=== PATIENT | male | born 1965 | race Caucasian/White ===

== ENCOUNTER 2023-03-25 19:11 | Inpatient (IN) ==
[2023-03-25] MEDS ORDERED: MoRPHine SULFATE 4 MG/ML 1 ML CARP\\VIAL IV STA (19:30)
[2023-03-25] MEDS ORDERED: METOCLOPRAMIDE HCL INJ 5 MG/ML 2 ML VIAL IV STA (19:30)
--- NOTE | 2023-03-25 19:38 | Emergency Department Note ---
Impression & Plan Nausea & vomiting, Metabolic acidosis, Leukocytosis ED Provider Note NAME: JOSEPHINE RIOS AGE: 57 SEX: M : 1965 ARRIVES VIA: Ambulance INFORMANT: Patient ED PROVIDER(S): Giorgio Bauer DO CHIEF COMPLAINT: abdominal pain HPI: Patient is a 57-year-old male who presents to the ER for abdominal discomfort. Notes symptoms have been present for the past 48 hours. He has some constipation for the past 4 days and has not had a bowel movement. Admits to nausea, vomiting, and diarrhea. No dysuria, urgency, or frequency. No other exacerbating or remitting factors. Denies any headache or change in vision. No chest pain or shortness of breath. No other exacerbating or remitting factors. PAST MEDICAL HISTORY:See Below PAST SURGICAL HISTORY:See Below FAMILY HISTORY:See Below SOCIAL HISTORY:See Below HOME MEDICATIONS:See Below ALLERGIES:See Below VITALS:See Below PHYSICAL EXAMINATION: GENERAL: Sitting up in bed, alert, mild distress holding his abdomen EYE EXAM: normal conjunctiva. OROPHARYNX: mucous membranes are moist LUNGS: Clear to auscultation. Normal chest wall mechanics HEART: no murmurs, S1 normal and S2 normal ABDOMEN: abdomen soft, non-tender, normo-active bowel sounds, no masses, no rebound or guarding. BACK: Back is symmetrical on inspection and there is no deformity, no midline tenderness, no CVA tenderness. SKIN: no rashes and no bruising UPPER EXTREMITIES: upper extremities are grossly normal. LOWER EXTREMITIES: No pitting edema. NEURO EXAM: Normal sensorium, cranial nerves II-XII grossly intact, normal speech, no gross weakness of arms, no gross weakness of legs. MEDICAL DECISION MAKING: Patient is a 57-year-old male who presents the ER for the above-stated complaint. IV was established blood work is obtained. Upon presentation he was found to be hypertensive with systolics in the 200s and heart rate in the 120s. Labs show leukocytosis 21,000. This increased from the previous visit at 16. No anemia. BMP with metabolic acidosis with a CO2 of 12 and a gap of 30. Glucose at 200. LFTs bilirubin was unremarkable. TSH was normal. UA was unremarkable. COVID-negative. With the euglycemic metabolic acidosis in light of Jardiance question if this is euglycemic DKA. Patient was given 3 L of IV fluids. He was given Phenergan. He did feel significantly better. He was discussed with hospitalist for further evaluation management and treatment. Triage Nursing notes reviewed. Limited review of prior medical records performed Vital Signs: reviewed and remarkable for HTN and tachy Differential diagnosis: Differential diagnoses includes but is not limited to gastritis, peptic ulcer disease, GERD, gallbladder disease, pancreatitis, small bowel obstruction, appendicitis, diverticulitis, hernia, urinary tract infection, torsion, perforation, trauma, infectious. ER treatment provided: See below Diagnostics interpreted by me include EKG and cardiac monitoring as listed below: -Cardiac Monitoring: An order was placed for continuous cardiac monitoring. The monitor shows a rate of 110 with sinus rhythm. -ECG: Sinus tachycardia rate of 101 Normal axis No PVCs QTc 482 -Laboratory studies:Interpreted by me as stated above in MDM and shown below. Imaging studies: Xrays: As interpreted by me:none CTs show: CT head was negative CT abdomen pelvis shows no acute pathology CT of the head per my read shows no large bleed Consultation(s): As described in MDM Procedures:none Critical Care: None Past Med/Surg History Medical History PTSD (post-traumatic stress disorder) Social History Smoking Status: Former smoker Feels Safe at Home: Yes Allergies Allergies Allergy/AdvReac Type Severity Reaction Status Date / Time No Known Allergies Allergy Unverified 03/25/23 22:44 Home Meds Home Medications Medication Instructions Recorded Confirmed Metamucil Gummies 2 - 3 tabs PO DAILY 03/25/23 03/25/23 Prebiotic Gummy 2 - 3 tabs PO DAILY 03/25/23 03/25/23 empagliflozin 25 mg tablet 25 mg PO DAILY 03/25/23 03/25/23 (Jardiance) ketoconazole 2 % topical cream 1 applic topical BID 03/25/23 03/25/23 losartan 25 mg tablet 25 mg PO QAM 03/25/23 03/25/23 metformin 500 mg tablet 1,000 mg PO BID 03/25/23 03/25/23 nicotine 21 mg/24 hr daily 1 patch topical DAILY 03/25/23 03/25/23 transdermal patch paroxetine HCl 30 mg tablet 30 mg PO QAM 03/25/23 03/25/23 Previous Rx's Medication Instructions Recorded ondansetron 4 mg disintegrating 4 mg PO Q6H PRN nausea and 03/24/23 tablet vomiting #12 tabs Results & Data (ED) Vital Signs Vital Signs - 24 hr 03/25/23 19:25 03/25/23 19:29 03/25/23 19:47 Temperature 37.2 C Temperature Source Oral Pulse Rate 128 H Pulse Rate [Bilateral Apical] 121 H Respiratory Rate 20 20 Respiratory Effort / Characteristics Non-Labored Non-Labored Respiratory Depth Normal Normal Blood Pressure 201/125 H Blood Pressure [Left Arm] Blood Pressure [Right Arm] 192/117 H Blood Pressure Mean 150 Blood Pressure Mean [Left Arm] Blood Pressure Mean [Right Arm] 142 Pulse Oximetry 98 98 100 Oxygen Delivery Method Room Air Room Air Room Air Sepsis Recent Fever Within 48 Hours No Sepsis New/Unexplained Change in Mental Status N/A Sepsis Action Taken by Nursing No Action Required 03/25/23 19:56 03/25/23 20:07 03/25/23 21:05 Temperature Temperature Source Pulse Rate 119 H Pulse Rate [Bilateral Apical] 113 H 117 H Respiratory Rate 20 20 Respiratory Effort / Characteristics Respiratory Depth Blood Pressure Blood Pressure [Left Arm] 180/116 H 178/103 H Blood Pressure [Right Arm] Blood Pressure Mean Blood Pressure Mean [Left Arm] 137 128 Blood Pressure Mean [Right Arm] Pulse Oximetry 99 99 Oxygen Delivery Method Room Air Room Air Sepsis Recent Fever Within 48 Hours Sepsis New/Unexplained Change in Mental Status Sepsis Action Taken by Nursing 03/25/23 22:07 03/25/23 22:51 03/25/23 22:56 Temperature Temperature Source Pulse Rate Pulse Rate [Bilateral Apical] 112 H 110 H 95 H Respiratory Rate 20 20 20 Respiratory Effort / Characteristics Non-Labored Respiratory Depth Normal Blood Pressure Blood Pressure [Left Arm] 157/83 H 141/79 H 149/90 H Blood Pressure [Right Arm] Blood Pressure Mean Blood Pressure Mean [Left Arm] 107 99 109 Blood Pressure Mean [Right Arm] Pulse Oximetry 98 98 98 Oxygen Delivery Method Room Air Room Air Sepsis Recent Fever Within 48 Hours Sepsis New/Unexplained Change in Mental Status Sepsis Action Taken by Nursing 03/25/23 23:00 03/25/23 23:15 03/25/23 23:30 Temperature Temperature Source Pulse Rate 97 H 94 H 96 H Pulse Rate [Bilateral Apical] Respiratory Rate 23 12 20 Respiratory Effort / Characteristics Respiratory Depth Blood Pressure 143/82 H 142/86 H 154/94 H Blood Pressure [Left Arm] Blood Pressure [Right Arm] Blood Pressure Mean 102 104 114 Blood Pressure Mean [Left Arm] Blood Pressure Mean [Right Arm] Pulse Oximetry 98 98 97 Oxygen Delivery Method Room Air Room Air Room Air Sepsis Recent Fever Within 48 Hours Sepsis New/Unexplained Change in Mental Status Sepsis Action Taken by Nursing Laboratory Data 03/25/23 19:26 03/25/23 19:26 Lab Results 03/25/23 03/25/23 03/25/23 Range/Units 19:26 19: 19:27 WBC 21.16 H (4.8-10.8) K/ul RBC 5.31 (4.70-6.10) M/uL Hgb 17.5 (14.0-18.0) g/dl Hct 48.2 (42.0-52.0) % MCV 90.8 (80.0-100.0) fL MCH 33.0 (25.0-34.0) pg MCHC 36.3 H (32.0-36.0) g/dL RDW Std Deviation 39.9 (36.4-46.3) fL RDW Coeff of Asad 12.0 (11.5-14.5) % Plt Count 355 (130-400) K/uL MPV 7.9 L (9.4-12.4) fL Immature Gran % (Auto) 3.3 % Neut % (Auto) 79.2 % Lymph % (Auto) 11.6 % Lucas % (Auto) 5.3 % Eos % (Auto) 0.0 % Baso % (Auto) 0.6 % Neut # (Auto) 16.75 H (1.40-6.50) K/uL Lymph # (Auto) 2.46 (1.2-3.4) K/uL Lucas # (Auto) 1.12 H (0.11-0.59) K/uL Eos # (Auto) 0.00 (0-0.50) K/uL Baso # (Auto) 0.13 (0-0.2) K/uL Immature Gran # (Auto) 0.70 H (0.01-0.20) K/uL Sodium 137 (136-145) mmol/L Potassium 3.8 (3.5-5.1) mmol/L Chloride 96 L (98-107) mmol/L Carbon Dioxide 12 L (21-32) mmol/L Anion Gap 29 H (3-11) BUN 30 H (6-23) mg/dl Creatinine 1.33 (0.6-1.4) mg/dl Est Cr Clr Drug Dosing 52.2 ml/min Est GFR ( Amer) 69.3 ml/min Est GFR (Non-Af Amer) 59.8 ml/min BUN/Creatinine Ratio 22.6 H (10-20) Glucose 200 H (70-99(Fasting)) mg/dl POC Glucose (70-99) mg/dl Calcium 10.4 H (8.6-10.3) mg/dl Phosphorus 4.3 (2.5-4.9) mg/dl Magnesium 2.3 (1.7-2.4) mg/dl Total Bilirubin 0.8 (0.2-1.0) mg/dl AST 24 (13-39) U/L ALT 21 (7-52) U/L Alkaline Phosphatase 81 (34-104) U/L Total Protein 8.9 H (6.0-8.3) gm/dl Albumin 5.2 H (3.4-5.0) gm/dl Globulin 3.7 (2.5-4.0) gm/dl Albumin/Globulin Ratio 1.4 (0.9-2) Lipase 8 L (11-82) U/L Procalcitonin (0-0.5) ng/ml Urine Color Yellow Urine Appearance Clear (Clear) Urine pH 5.0 (4.5-7.5) Ur Specific [place] 1.027 (1.000-1.030) Urine Protein 2+ H (Negative) Urine Glucose (UA) 3+ H (Negative) Urine Ketones 4+ H (Negative) Urine Blood Trace H (Negative) Urine Nitrite Negative (Negative) Urine Bilirubin Negative (Negative) Urine Urobilinogen Negative (Negative) Ur Leukocyte Esterase Negative (Negative) Urine WBC (Auto) 1-5 (0-5) /hpf Urine RBC (Auto) 0-4 (0-4) /hpf U Hyaline Cast (Auto) 0 (0-5) /lpf U Epithel Cells (Auto) 0-5 (0-5) /lpf Urine Bacteria (Auto) Negative (Negative) SARS-CoV-2, RNA, NAAT (NEGATIVE) 03/25/23 03/25/23 03/25/23 Range/Units 22:05 22:16 Unknown WBC (4.8-10.8) K/ul RBC (4.70-6.10) M/uL Hgb (14.0-18.0) g/dl Hct (42.0-52.0) % MCV (80.0-100.0) fL MCH (25.0-34.0) pg MCHC (32.0-36.0) g/dL RDW Std Deviation (36.4-46.3) fL RDW Coeff of Asad (11.5-14.5) % Plt Count (130-400) K/uL MPV (9.4-12.4) fL Immature Gran % (Auto) % Neut % (Auto) % Lymph % (Auto) % Lucas % (Auto) % Eos % (Auto) % Baso % (Auto) % Neut # (Auto) (1.40-6.50) K/uL Lymph # (Auto) (1.2-3.4) K/uL Lucas # (Auto) (0.11-0.59) K/uL Eos # (Auto) (0-0.50) K/uL Baso # (Auto) (0-0.2) K/uL Immature Gran # (Auto) (0.01-0.20) K/uL Sodium (136-145) mmol/L Potassium (3.5-5.1) mmol/L Chloride (98-107) mmol/L Carbon Dioxide (21-32) mmol/L Anion Gap (3-11) BUN (6-23) mg/dl Creatinine (0.6-1.4) mg/dl Est Cr Clr Drug Dosing ml/min Est GFR ( Amer) ml/min Est GFR (Non-Af Amer) ml/min BUN/Creatinine Ratio (10-20) Glucose (70-99(Fasting)) mg/dl POC Glucose 131 H (70-99) mg/dl Calcium (8.6-10.3) mg/dl Phosphorus (2.5-4.9) mg/dl Magnesium (1.7-2.4) mg/dl Total Bilirubin (0.2-1.0) mg/dl AST (13-39) U/L ALT (7-52) U/L Alkaline Phosphatase (34-104) U/L Total Protein (6.0-8.3) gm/dl Albumin (3.4-5.0) gm/dl Globulin (2.5-4.0) gm/dl Albumin/Globulin Ratio (0.9-2) Lipase (11-82) U/L Procalcitonin 0.20 (0-0.5) ng/ml Urine Color Urine Appearance (Clear) Urine pH (4.5-7.5) Ur Specific [place] (1.000-1.030) Urine Protein (Negative) Urine Glucose (UA) (Negative) Urine Ketones (Negative) Urine Blood (Negative) Urine Nitrite (Negative) Urine Bilirubin (Negative) Urine Urobilinogen (Negative) Ur Leukocyte Esterase (Negative) Urine WBC (Auto) (0-5) /hpf Urine RBC (Auto) (0-4) /hpf U Hyaline Cast (Auto) (0-5) /lpf U Epithel Cells (Auto) (0-5) /lpf Urine Bacteria (Auto) (Negative) SARS-CoV-2, RNA, NAAT NEGATIVE (NEGATIVE) Administered Medications Discontinued Medications Sodium Chloride (Nss 1000ml) 1,000 mls @ 999 mls/hr IV .Q1H1M MAGGIE Stop: 03/25/23 21:31 Last Infusion: 03/25/23 21:27 Dose: 0 mls/hr Documented By: Admin: 03/25/23 19:49 Dose: 999 mls/hr Documented By: Infusion: 03/25/23 19:49 Dose: 999 mls/hr Documented By: Admin: 03/25/23 19:45 Dose: 999 mls/hr Documented By: SILVER Sodium Chloride (Nss 1000ml) 1,000 mls @ 999 mls/hr IV .Q1H1M ONE Stop: 03/25/23 23:00 Last Infusion: 03/25/23 23:16 Dose: 0 mls/hr Documented By: Admin: 03/25/23 22:07 Dose: 999 mls/hr Documented By: SILVER Famotidine (Pepcid 20mg Iv Push) 20 mg in 5 mls @ 2.5 mls/min IV NOW STA Stop: 03/25/23 22:37 Last Admin: 03/25/23 22:49 Dose: 2.5 mls/min Documented By: SILVER Ioversol (Optiray 320 100ml) 89 ml IV ONCE ONE Stop: 03/25/23 20:34 Last Admin: 03/25/23 20:33 Dose: 89 ml Documented By: JELENA Metoclopramide HCl (Metoclopramide Hcl Inj 5 Mg/Ml 2 Ml Vial) 10 mg IV NOW STA Stop: 03/25/23 19:31 Last Admin: 03/25/23 19:45 Dose: 10 mg Documented By: SILVER Metoprolol Tartrate (Metoprolol Tartrate 1 Mg/Ml Vial) 2.5 mg IV NOW STA Stop: 03/25/23 22:38 Last Admin: 03/25/23 22:49 Dose: 2.5 mg Documented By: SILVER Morphine Sulfate (Morphine Sulfate 4 Mg/Ml 1 Ml Carp\Vial) 4 mg IV NOW STA Stop: 03/25/23 19:31 Last Admin: 03/25/23 19:46 Dose: 4 mg Documented By: SILVER Nicotine (Nicotine 21 Mg/24 Hr Tdsy) 21 mg TD ONE STA Stop: 03/25/23 22:52 Last Admin: 03/25/23 22:55 Dose: 21 mg Documented By: SILVER Imaging Data Radiologist's Impression: Abdomen/Pelvis CT 03/25/23 19:30 Exam(s): CT ABDOMEN + PELVIS With Contrast EXAM: CT Abdomen and Pelvis With Intravenous Contrast CLINICAL HISTORY: Reason for exam: abd pain N/V /D. TECHNIQUE: Axial computed tomography images of the abdomen and pelvis with intravenous contrast. CTDI is 10.94 mGy and DLP is 522.83 mGy-cm. Automated exposure control was utilized for the study. A dose lowering technique was utilized adhering to the principles of ALARA. CONTRAST: Contrast must be dictated COMPARISON: No relevant prior studies available. FINDINGS: Mediastinum: Mild thickening of the distal esophagus. ABDOMEN: Liver: Mild fatty liver. Gallbladder and bile ducts: No radiodense stones. No biliary ductal dilation. Pancreas: Unremarkable. Spleen: Unremarkable. Adrenals: 14 mm right adrenal nodule. Kidneys and ureters: No renal or ureteral calculi. No obstructive changes. Stomach and bowel: No paulie mural thickening. Nonobstructive bowel gas pattern. PELVIS: Appendix: Unremarkable appendix. Bladder: Unremarkable. Reproductive: Unremarkable. ABDOMEN and PELVIS: Intraperitoneal space: Unremarkable. Bones/joints: No acute fracture. Soft tissues: Unremarkable. Vasculature: No acute process. Lymph nodes: No bulky adenopathy. IMPRESSION: Mild thickening of the distal esophagus. Could represent esophagitis. Electronically signed by: Bárbara Zimmerman M.D. 03/25/23 21:[address] 03/25/23 22:49 Exam(s): CT HEAD Without Contrast EXAM: CT Head Without Intravenous Contrast CLINICAL HISTORY: Reason for exam: fernandez, htn. TECHNIQUE: Axial computed tomography images of the head/brain without intravenous contrast. Automated exposure control was utilized for the study. A dose lowering technique was utilized adhering to the principles of ALARA. COMPARISON: No relevant prior studies available. FINDINGS: Brain: Unremarkable. No hemorrhage. No significant white matter disease. No edema. Ventricles: Unremarkable. No ventriculomegaly. Bones/joints: Unremarkable. No acute fracture. Soft tissues: Unremarkable. Sinuses: Unremarkable as visualized. No acute sinusitis. Mastoid air cells: Unremarkable as visualized. No mastoid effusion. IMPRESSION: Normal head/brain CT. Electronically signed by: Kendall Christianson MD 03/25/23 23:58 PM Discharge Plan Visit Data Chief Complaint: GI Assessment Stated Complaint: N/V X2 DAYS ED Provider: Giorgio Bauer Discharge Problem: Nausea & vomiting, Metabolic acidosis, Leukocytosis Forms Stand Alone Forms: [facility] Prescriptions Prescriptions: No Action metformin 500 mg tablet 1,000 mg PO BID paroxetine HCl 30 mg tablet 30 mg PO QAM losartan 25 mg tablet 25 mg PO QAM nicotine 21 mg/24 hr patch 24 hour 1 patch topical DAILY ketoconazole 2 % cream 1 applic TOPICAL BID Jardiance 25 mg tablet 25 mg PO DAILY Metamucil Gummies 2 - 3 tabs PO DAILY Prebiotic Gummy 2 - 3 tabs PO DAILY ondansetron 4 mg tablet,disintegrating 4 mg PO Q6H PRN (Reason: nausea and vomiting) Qty: 12 0RF Referrals Referrals: Rob Chisholm MD [Primary Care Provider] -
[2023-03-25] MEDS: SODIUM CHLORIDE 0.9% 1000ML 1,000 ML IV SCH ×2 (19:45→19:49)
[2023-03-25 19:54] LABS: Basophils # (auto) 0.13 K/uL (0-0.2); Basophils % (auto) 0.6 %; Hematocrit (blood only) 48.2 % (42.0-52.0); Hemoglobin 17.5 g/dl (14.0-18.0); Immature Granulocytes % (auto) 3.3 %; Lymphocytes # (auto) 2.46 K/uL (1.2-3.4); Lymphocytes % (auto) 11.6 %; Mean Corpuscular Hgb Conc 36.3 g/dL (32.0-36.0); Mean Corpuscular Volume 90.8 fL (80.0-100.0); Mean Platelet Volume 7.9 fL (9.4-12.4); Monocytes # (auto) 1.12 K/uL (0.11-0.59); Monocytes % (auto) 5.3 %; Neutrophils # (auto) 16.75 K/uL (1.40-6.50); Neutrophils % (auto) 79.2 %; Platelet Count 355 K/uL (130-400); RDW Standard Deviation 39.9 fL (36.4-46.3); Red Blood Count 5.31 M/uL (4.70-6.10); White Blood Count 21.16 K/ul (4.8-10.8)
[2023-03-25 20:10] LABS: Albumin Globulin Ratio 1.4 (0.9-2); Albumin Level 5.2 gm/dl (3.4-5.0); BUN Creatinine Ratio 22.6 (10-20); Bilirubin,Total 0.8 mg/dl (0.2-1.0); Calcium 10.4 mg/dl (8.6-10.3); Creatinine Clr Calc Pharmacy 52.2 ml/min; Est GFR (African American) 69.3 ml/min; Est GFR (Non-African American) 59.8 ml/min; Globulin 3.7 gm/dl (2.5-4.0); Potassium 3.8 mmol/L (3.5-5.1); Total Protein 8.9 gm/dl (6.0-8.3)
[2023-03-25] MEDS ORDERED: OPTIRAY 320 100ml IV ONE (20:33)
[2023-03-25 21:05] LABS: Appearance Urine Clear (Clear); Bacteria Urine Automated Negative (Negative); Bilirubin Urine Negative (Negative); Blood Urine Trace (Negative); Cast Urine Automated 0 /lpf (0-5); Color Urine Yellow; Epithelial Cell Urine Auto 0-5 /lpf (0-5); Glucose Urine UA 3+ (Negative); Ketones Urine 4+ (Negative); Leukocyte Esterase Urine Negative (Negative); Nitrite Urine Negative (Negative); Protein Urine 2+ (Negative); RBC Urine Automated 0-4 /hpf (0-4); Specific Gravity Urine 1.027 (1.000-1.030); Urobilinogen Urine Negative (Negative)
--- NOTE | 2023-03-25 21:43 | CT Scan Report ---
Exam(s): CT ABDOMEN + PELVIS With Contrast EXAM: CT Abdomen and Pelvis With Intravenous Contrast CLINICAL HISTORY: Reason for exam: abd pain N/V /D. TECHNIQUE: Axial computed tomography images of the abdomen and pelvis with intravenous contrast. CTDI is 10.94 mGy and DLP is 522.83 mGy-cm. Automated exposure control was utilized for the study. A dose lowering technique was utilized adhering to the principles of ALARA. CONTRAST: Contrast must be dictated COMPARISON: No relevant prior studies available. FINDINGS: Mediastinum: Mild thickening of the distal esophagus. ABDOMEN: Liver: Mild fatty liver. Gallbladder and bile ducts: No radiodense stones. No biliary ductal dilation. Pancreas: Unremarkable. Spleen: Unremarkable. Adrenals: 14 mm right adrenal nodule. Kidneys and ureters: No renal or ureteral calculi. No obstructive changes. Stomach and bowel: No paulie mural thickening. Nonobstructive bowel gas pattern. PELVIS: Appendix: Unremarkable appendix. Bladder: Unremarkable. Reproductive: Unremarkable. ABDOMEN and PELVIS: Intraperitoneal space: Unremarkable. Bones/joints: No acute fracture. Soft tissues: Unremarkable. Vasculature: No acute process. Lymph nodes: No bulky adenopathy. IMPRESSION: Mild thickening of the distal esophagus. Could represent esophagitis. Electronically signed by: Bárbara Zimmerman M.D. 03/25/23 21:42 PM
[2023-03-25] MEDS ORDERED: SODIUM CHLORIDE 0.9% 1000ML 1,000 ML IV ONE (22:00)
[2023-03-25 22:36] LABS: Magnesium 2.3 mg/dl (1.7-2.4); Phosphorus 4.3 mg/dl (2.5-4.9)
[2023-03-25] MEDS ORDERED: FAMOTIDINE 20MG IV PUSH 20 MG/5 ML SYR IV STA (22:36)
[2023-03-25] MEDS ORDERED: METOPROLOL TARTRATE 1 MG/ML VIAL IV STA (22:37)
[2023-03-25] MEDS ORDERED: PROMETHAZINE HCL 6.25 MG in SODIUM CHLORIDE 0.9% 50 ML IV PRN (22:50)
[2023-03-25] MEDS ORDERED: LORazepam 0.5 MG TAB PO PRN (22:50)
[2023-03-25] MEDS ORDERED: NICOTINE 21 MG/24 HR TDSY TD STA (22:51)
[2023-03-25] MEDS ORDERED: oxyCODONE HCL IR 5 MG TAB (IMMEDIATE RELEASE) PO PRN (22:51)
[2023-03-25] MEDS ORDERED: LACTATED RINGER'S 1,000 ML IV STA (22:53)
[2023-03-25] MEDS ORDERED: PANTOprazole 80 MG in DEXTROSE 5% 100 ML IV STA (23:55)
--- NOTE | 2023-03-26 | CT Scan Report ---
Exam(s): CT HEAD Without Contrast EXAM: CT Head Without Intravenous Contrast CLINICAL HISTORY: Reason for exam: fernandez, htn. TECHNIQUE: Axial computed tomography images of the head/brain without intravenous contrast. Automated exposure control was utilized for the study. A dose lowering technique was utilized adhering to the principles of ALARA. COMPARISON: No relevant prior studies available. FINDINGS: Brain: Unremarkable. No hemorrhage. No significant white matter disease. No edema. Ventricles: Unremarkable. No ventriculomegaly. Bones/joints: Unremarkable. No acute fracture. Soft tissues: Unremarkable. Sinuses: Unremarkable as visualized. No acute sinusitis. Mastoid air cells: Unremarkable as visualized. No mastoid effusion. IMPRESSION: Normal head/brain CT. Electronically signed by: Kendall Christianson MD 03/25/23 23:58 PM
[2023-03-26] MEDS ORDERED: POLYETHYLENE (MIRALAX) 17 GM PACK PO STA (00:05)
[2023-03-26] MEDS ORDERED: DOCUSATE SODIUM/SENNA 50/8.6MG TAB PO STA (00:05)
--- NOTE | 2023-03-26 00:07 | History & Physical Report ---
Date of Service March 26, 2023 Assessment & Plan (1) TIA (transient ischemic attack): Plan: Transient symptoms of vertigo, imbalance, writing abnormality UGIB from esophagitis Patient currently hemodynamically stable. Hypertensive crisis secondary to illness, anxiety contributory DM2 on oral medications, suboptimal control as of recent hemoglobin A1c of 7.9 last February 2023 mood disorder, at baseline Primary hyperparathyroidism, new diagnosis Warthin's tumor, outpatient ENT consultation contemplated past tobacco/alcohol abuse Medical telemetry aspirin for secondary stroke prevention (rectal suppository preferred for now given esophagitis ) Permissive hypertension until acute stroke definitely ruled out Anxiolytic as needed Baseline EKG, MRI/MRA brain, TTE, carotid Dopplers for stroke work-up Neurology consult Re: TIA IV PPI for UGIB Bowel regimen GI consult re: UGIB N.p.o. until patient seen by GI in anticipation of endoscopy Outpatient Endocrinology consult for primary hyperparathyroidism Basal bolus insulin adjusted for n.p.o. status, ISS BG goal 1 10-1 40 DVT prophylaxis. SCDs Re: GI bleed Full code Text document was generated using [employer] voice recognition software. It may contain grammatical or spelling errors. Kindly contact undersigned for clarification of any documentation item in question. History of Present Illness Chief Complaint: Abdominal pain, nausea, vomiting Primary Care Provider: Rob Chisholm MD History obtained from patient and records. Medical history significant for hypertension, DM2 on oral medications, anxiety/mood disorder, Warthin's tumor, past tobacco/alcohol abuse. 4 days ago, patient noted dizziness symptoms sometimes spinning with some sensation of imbalance. Episodic frontal headache symptoms. Patient also noticed that his writing was weird. Writing some letter Bs as Ds. Transient symptoms. Patient later noted achy abdominal pain with usual constipation more pronounced followed by blood-tinged/coffee-ground emesis. Patient denies OTC NSAID intake. No fever, no chills. Patient denies chest pain. Shortness of breath attributed to anxiety. Patient directed to ER 2 days ago by PCP's office. Patient nausea/vomiting symptoms attributed to foodborne versus viral versus psychogenic causes. Patient discharged home. Patient returned to ER for worsening symptoms. SBP 200s upon arrival at the ER. 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 Allergies Allergy/AdvReac Type Severity Reaction Status Date / Time No Known Allergies Allergy Unverified 03/25/23 22:44 Home Medications Medication Instructions Recorded Confirmed Type ondansetron 4 mg disintegrating 4 mg PO Q6H PRN nausea and 03/24/23 03/25/23 Rx tablet vomiting #12 tabs Metamucil Gummies 2 - 3 tabs PO DAILY 03/25/23 03/25/23 History Prebiotic Gummy 2 - 3 tabs PO DAILY 03/25/23 03/25/23 History empagliflozin 25 mg tablet 25 mg PO DAILY 03/25/23 03/25/23 History (Jardiance) ketoconazole 2 % topical cream 1 applic topical BID 03/25/23 03/25/23 History losartan 25 mg tablet 25 mg PO QAM 03/25/23 03/25/23 History metformin 500 mg tablet 1,000 mg PO BID 03/25/23 03/25/23 History nicotine 21 mg/24 hr daily 1 patch topical DAILY 03/25/23 03/25/23 History transdermal patch paroxetine HCl 30 mg tablet 30 mg PO QAM 03/25/23 03/25/23 History Past Med/Surg History Medical History PTSD (post-traumatic stress disorder) Social History Smoking Status: Former smoker Cigarettes Per Day: 1 pack/day; Smoking End Date: Stated, "Just quit."; Second Hand Exposure: No; Do You Dip or Chew Tobacco: Yes (Quit); Tobacco Cessation Education Requested by Patient: No Hx Alcohol Use: No Hx Substance Use: Yes Last Used Substance Other:: 1-2 weeks ago Substance Use Type Other:: medical marijuana Preferred Language: [place] Communication Ability: Effective Research Computing Specialist Required: No Beliefs That Will Affect Care: None Current Living Situation: Alone Other Information That Helps Us Care for You: No Feels Safe at Home: Yes Safety Concerns: Feels Safe At This Time Assistive Devices: Glasses Review of Systems Review of Systems: As per HPI, all other systems reviewed and negative Physical Exam Physical Exam: GENERAL: Slightly uncomfortable, slightly anxious, pleasant, no respiratory distress SKIN: Normal color, warm HEENT: [place] palpebral conjunctivae, no ptosis, dry buccal mucosa NECK : Supple, no tenderness CHEST : CTA, no tenderness HEART : RRR, no obvious murmurs ABDOMEN: Some distention, epigastric tenderness EXTREMITIES : No LE swelling/tenderness, no other conspicuous deformities noted NEUROLOGIC : Coherent, no facial asymmetry, no other gross focality Results & Data Results & Data Vital Signs (Past 12 Hours) Vital Signs Temp Pulse Pulse Resp BP BP BP 03/25/23 23:30 96 H 20 154/94 H 03/25/23 23:15 94 H 12 142/86 H 03/25/23 23:00 97 H 23 143/82 H 03/25/23 22:56 95 H 20 149/90 H 03/25/23 22:51 110 H 20 141/79 H 03/25/23 22:07 112 H 20 157/83 H 03/25/23 21:05 117 H 20 178/103 H 03/25/23 20:07 113 H 20 180/116 H 03/25/23 19:56 119 H 03/25/23 19:47 121 H 20 192/117 H 03/25/23 19:29 03/25/23 19:25 37.2 C 128 H 20 201/125 H Pulse Ox O2 Del Method 03/25/23 23:30 97 Room Air 03/25/23 23:15 98 Room Air 03/25/23 23:00 98 Room Air 03/25/23 22:56 98 03/25/23 22:51 98 Room Air 03/25/23 22:07 98 Room Air 03/25/23 21:05 99 Room Air 03/25/23 20:07 99 Room Air 03/25/23 19:56 03/25/23 19:47 100 Room Air 03/25/23 19:29 98 Room Air 03/25/23 19:25 98 Room Air Laboratory Results Laboratory Results WBC 21.16 K/ul (4.8-10.8) H 03/25/23 19:26 RBC 5.31 M/uL (4.70-6.10) 03/25/23 19:26 Hgb 17.5 g/dl (14.0-18.0) 03/25/23 19:26 Hct 48.2 % (42.0-52.0) 03/25/23 19:26 MCV 90.8 fL (80.0-100.0) 03/25/23 19: MCH 33.0 pg (25.0-34.0) 03/25/23: MCHC 36.3 g/dL (32.0-36.0) H 03/25/23: RDW Std Deviation 39.9 fL (36.4-46.3) 03/25/23: RDW Coeff of Asad 12.0 % (11.5-14.5) 03/25/23: Plt Count 355 K/uL (130-400) 03/25/23: MPV 7.9 fL (9.4-12.4) L 03/25/23: Immature Gran % (Auto) 3.3 % 03/25/23: Neut % (Auto) 79.2 % 03/25/23: Lymph % (Auto) 11.6 % 03/25/23: [place] % (Auto) 5.3 % 03/25/23 19: Eos % (Auto) 0.0 % 03/25/23 19: Baso % (Auto) 0.6 % 03/25/23: Neut # (Auto) 16.75 K/uL (1.40-6.50) H 03/25/23: Lymph # (Auto) 2.46 K/uL (1.2-3.4) 03/25/23 19: [place] # (Auto) 1.12 K/uL (0.11-0.59) H 03/25/23 19: Eos # (Auto) 0.00 K/uL (0-0.50) 03/25/23 19: Baso # (Auto) 0.13 K/uL (0-0.2) 03/25/23: Immature Gran # (Auto) 0.70 K/uL (0.01-0.20) H 03/25/23 19: Sodium 137 mmol/L (136-145) 03/25/23 19: Potassium 3.8 mmol/L (3.5-5.1) 03/25/23: Chloride 96 mmol/L (98-107) L 03/25/23 19:26 Carbon Dioxide 12 mmol/L (21-32) L 03/25/23 19:26 Anion Gap 29 (3-11) H 03/25/23 19:26 BUN 30 mg/dl (6-23) H 03/25/23 19:26 Creatinine 1.33 mg/dl (0.6-1.4) 03/25/23 19:26 Est Cr Clr Drug Dosing 52.2 ml/min 03/25/23 19:26 Est GFR ( Amer) 69.3 ml/min 03/25/23 19:26 Est GFR (Non-Af Amer) 59.8 ml/min 03/25/23 19:26 BUN/Creatinine Ratio 22.6 (10-20) H 03/25/23 19:26 Glucose 200 mg/dl (70-99(Fasting)) H 03/25/23 19:26 POC Glucose 131 mg/dl (70-99) H 03/25/23 22:05 Calcium 10.4 mg/dl (8.6-10.3) H 03/25/23 19:26 Phosphorus 4.3 mg/dl (2.5-4.9) 03/25/23 19:26 Magnesium 2.3 mg/dl (1.7-2.4) 03/25/23 19:26 Total Bilirubin 0.8 mg/dl (0.2-1.0) 03/25/23 19:26 AST 24 U/L (13-39) 03/25/23 19:26 ALT 21 U/L (7-52) 03/25/23 19:26 Alkaline Phosphatase 81 U/L (34-104) 03/25/23 19:26 Total Protein 8.9 gm/dl (6.0-8.3) H 03/25/23 19:26 Albumin 5.2 gm/dl (3.4-5.0) H 03/25/23 19:26 Globulin 3.7 gm/dl (2.5-4.0) 03/25/23 19:26 Albumin/Globulin Ratio 1.4 (0.9-2) 03/25/23 19:26 Lipase 8 U/L (11-82) L 03/25/23 19:26 Procalcitonin 0.20 ng/ml (0-0.5) 03/25/23 22:16 Urine Color Yellow 03/25/23 19:27 Urine Appearance Clear (Clear) 03/25/23 19:27 Urine pH 5.0 (4.5-7.5) 03/25/23 19:27 Ur Specific [place] 1.027 (1.000-1.030) 03/25/23 19:27 Urine Protein 2+ (Negative) H 03/25/23 19:27 Urine Glucose (UA) 3+ (Negative) H 03/25/23 19:27 Urine Ketones 4+ (Negative) H 03/25/23 19:27 Urine Blood Trace (Negative) H 03/25/23 19:27 Urine Nitrite Negative (Negative) 03/25/23 19:27 Urine Bilirubin Negative (Negative) 03/25/23 19:27 Urine Urobilinogen Negative (Negative) 03/25/23 19:27 Ur Leukocyte Esterase Negative (Negative) 03/25/23 19:27 Urine WBC (Auto) 1-5 /hpf (0-5) 03/25/23 19:27 Urine RBC (Auto) 0-4 /hpf (0-4) 03/25/23 19:27 U Hyaline Cast (Auto) 0 /lpf (0-5) 03/25/23 19:27 U Epithel Cells (Auto) 0-5 /lpf (0-5) 03/25/23 19:27 Urine Bacteria (Auto) Negative (Negative) 03/25/23 19:27 SARS-CoV-2, RNA, NAAT NEGATIVE (NEGATIVE) 03/25/23 Unknown Impressions Abdomen/Pelvis CT 03/25/23 19:30 Exam(s): CT ABDOMEN + PELVIS With Contrast EXAM: CT Abdomen and Pelvis With Intravenous Contrast CLINICAL HISTORY: Reason for exam: abd pain N/V /D. TECHNIQUE: Axial computed tomography images of the abdomen and pelvis with intravenous contrast. CTDI is 10.94 mGy and DLP is 522.83 mGy-cm. Automated exposure control was utilized for the study. A dose lowering technique was utilized adhering to the principles of ALARA. CONTRAST: Contrast must be dictated COMPARISON: No relevant prior studies available. FINDINGS: Mediastinum: Mild thickening of the distal esophagus. ABDOMEN: Liver: Mild fatty liver. Gallbladder and bile ducts: No radiodense stones. No biliary ductal dilation. Pancreas: Unremarkable. Spleen: Unremarkable. Adrenals: 14 mm right adrenal nodule. Kidneys and ureters: No renal or ureteral calculi. No obstructive changes. Stomach and bowel: No paulie mural thickening. Nonobstructive bowel gas pattern. PELVIS: Appendix: Unremarkable appendix. Bladder: Unremarkable. Reproductive: Unremarkable. ABDOMEN and PELVIS: Intraperitoneal space: Unremarkable. Bones/joints: No acute fracture. Soft tissues: Unremarkable. Vasculature: No acute process. Lymph nodes: No bulky adenopathy. IMPRESSION: Mild thickening of the distal esophagus. Could represent esophagitis. Electronically signed by: Bárbara Zimmerman M.D. 03/25/23 21:[address] 03/25/23 22:49 Exam(s): CT HEAD Without Contrast EXAM: CT Head Without Intravenous Contrast CLINICAL HISTORY: Reason for exam: fernandez, htn. TECHNIQUE: Axial computed tomography images of the head/brain without intravenous contrast. Automated exposure control was utilized for the study. A dose lowering technique was utilized adhering to the principles of ALARA. COMPARISON: No relevant prior studies available. FINDINGS: Brain: Unremarkable. No hemorrhage. No significant white matter disease. No edema. Ventricles: Unremarkable. No ventriculomegaly. Bones/joints: Unremarkable. No acute fracture. Soft tissues: Unremarkable. Sinuses: Unremarkable as visualized. No acute sinusitis. Mastoid air cells: Unremarkable as visualized. No mastoid effusion. IMPRESSION: Normal head/brain CT. Electronically signed by: Kendall Christianson MD 03/25/23 23:58 PM
[2023-03-26] MEDS ORDERED: ASPIRIN 300 MG SUPP PR STA (00:11)
[2023-03-26 01:16] LABS: Hematocrit (blood only) 41.8 % (42.0-52.0); Hemoglobin 14.7 g/dl (14.0-18.0)
[2023-03-26 01:37] LABS: Base Excess VBG -12.6 mEq/L; HCO3 VBG 13 mmol/L; Oxygen Saturation VBG 79.9 %; PCO2 VBG 29 mmHg (38-50); PO2 VBG 51 mmHg; pH VBG 7.26 (7.36-7.41)
[2023-03-26 01:55] LABS: BUN Creatinine Ratio 22.5 (10-20); Calcium 8.2 mg/dl (8.6-10.3); Creatinine Clr Calc Pharmacy 68.1 ml/min; Est GFR (African American) 95.5 ml/min; Est GFR (Non-African American) 82.4 ml/min; Potassium 4.1 mmol/L (3.5-5.1)
[2023-03-26 02:14] LABS: Lyme Ab IgG w/WB Rflx Negative (Negative); Lyme Ab IgM w/WB Rflx Negative (Negative)
[2023-03-26] MEDS ORDERED: MoRPHine SULFATE 2 MG/ML CARP IV PRN (02:18)
[2023-03-26] MEDS ORDERED: DEXTROSE 50% 50 ML SYRINGE IV PRN (02:32)
[2023-03-26] MEDS ORDERED: GLUCOSE 40% GEL 15 GM TUBE PO PRN (02:32)
[2023-03-26] MEDS ORDERED: CARBOHYDRATES FOR HYPOGLYCEMIA PO PRN (02:32)
[2023-03-26] MEDS ORDERED: GLUCAGON FOR INJ 1 MG VIAL SQ PRN (02:32)
[2023-03-26] MEDS ORDERED: GLUCOSE 10 TAB/TUBE PO PRN (02:32)
[2023-03-26] MEDS ORDERED: POLYETHYLENE (MIRALAX) 17 GM PACK PO PRN (02:32)
[2023-03-26] MEDS: ACETAMINOPHEN 325 MG TAB PO PRN (05:51)
[2023-03-26] MEDS ORDERED: INSULIN ASPART PER UNIT CHARGE SC SCH (06:00)
[2023-03-26 07:40] LABS: Basophils # (auto) 0.07 K/uL (0-0.2); Basophils % (auto) 0.4 %; Eosinophils # (auto) 0.04 K/uL (0-0.50); Eosinophils % (auto) 0.2 %; Hematocrit (blood only) 40.4 % (42.0-52.0); Hemoglobin 14.4 g/dl (14.0-18.0); Immature Granulocytes # (auto) 0.39 K/uL (0.01-0.20); Immature Granulocytes % (auto) 2.1 %; Lymphocytes # (auto) 2.83 K/uL (1.2-3.4); Lymphocytes % (auto) 15.2 %; Mean Corpuscular Hemoglobin 33.1 pg (25.0-34.0); Mean Corpuscular Hgb Conc 35.6 g/dL (32.0-36.0); Mean Corpuscular Volume 92.9 fL (80.0-100.0); Mean Platelet Volume 7.7 fL (9.4-12.4); Monocytes # (auto) 1.82 K/uL (0.11-0.59); Monocytes % (auto) 9.8 %; Neutrophils # (auto) 13.47 K/uL (1.40-6.50); Neutrophils % (auto) 72.3 %; Platelet Count 258 K/uL (130-400); RDW Coefficient of Variation 12.2 % (11.5-14.5); RDW Standard Deviation 42.2 fL (36.4-46.3); Red Blood Count 4.35 M/uL (4.70-6.10); White Blood Count 18.62 K/ul (4.8-10.8)
[2023-03-26 08:02] LABS: BUN Creatinine Ratio 24.4 (10-20); Calcium 8.7 mg/dl (8.6-10.3); Chol HDL Ratio 3.4 (0-5); Creatinine Clr Calc Pharmacy 93.1 ml/min; Est GFR (African American) 115.4 ml/min; Est GFR (Non-African American) 99.6 ml/min; Potassium 4.1 mmol/L (3.5-5.1)
--- NOTE | 2023-03-26 08:11 | Ultrasound Report ---
US carotid doppler BI CLINICAL HISTORY: 57 years-old Male with tia. Acute stroke like symptoms COMPARISON: None TECHNIQUE: Multiple real time sonographic images of the carotid bifurcations were obtained assessing hernández scale, color Doppler and spectral wave form appearance FINDINGS: RIGHT CAROTID: The peak systolic velocity measured within the right ICA is 99.5 cm/sec. The end jeanette stolic velocity measured 8.5 cm/sec. The ICA to CCA ratio measured 0.9 which correlates with a steno sis of 0-50%. Mild atherosclerotic plaque of the right carotid bulb and proximal right ICA. LEFT CAROTID: The peak systolic velocity measurement of the left ICA is 96.6 cm/sec. The end diasto lic velocity measured 14.4 cm/sec. The ICA to CCA ratio measured 1.0 which correlates with a stenosis of 0-50%. Mild atherosclerotic plaque of the left carotid bulb and proximal left ICA. There is normal antegrade vertebral flow bilaterally. IMPRESSION: 1. No hemodynamically significant stenosis or significant atherosclerotic plaquing. 2. Normal antegrade vertebral flow bilaterally. ACT 112: Negative or not required by law. The above report was generated using voice recognition software. It may contain grammatical, syntax o r spelling errors. Electronically signed by: Zachery Kahn M.D. 03/26/2023 8:10 AM
[2023-03-26] MEDS: PARoxetine HCL 20 MG TAB PO SCH (08:21)
[2023-03-26] MEDS: NICOTINE 21 MG/24 HR TDSY TD SCH (08:21)
[2023-03-26] MEDS: PANTOprazole 40 MG in SYRINGE 0 ML IV SCH ×2 (08:22→19:28)
[2023-03-26] MEDS ORDERED: LANTUS PER UNIT CHARGE SQ SCH ×2 (09:00→21:00)
[2023-03-26] MEDS ORDERED: LACTATED RINGER'S 1,000 ML IV SCH (09:00)
[2023-03-26] MEDS: DOCUSATE SODIUM/SENNA 50/8.6MG TAB PO SCH (09:27)
--- NOTE | 2023-03-26 10:09 | Communication Note ---
Date of Service: March 26, 2023 Came by to see patient but off the floor getting MRI. Chart review does not suggest significant UGI bleed. Will make decisions when I am able to see patient. Will see later today or tomorrow. Don't plan emergent EGD now.
--- NOTE | 2023-03-26 11:25 | Magnetic Resonance Report ---
MR brain wo con, MR angio head wo con HISTORY: 57 years-old Male tia acute stroke like symptoms COMPARISON: Head CT 03/25/2023 TECHNIQUE: Multiplanar multisequence MRI of the brain was obtained without the use of IV contrast. MR A of the head was obtained without use of IV contrast utilizing 3-D [id number] or mass. All measu rements were obtained according to NASCET criteria. FINDINGS: BRAIN MRI: No acute or subacute territorial infarct. There are 2 subcentimeter foci measuring up to 5 mm within the periventricular right frontal lobe on image 15 series 5 which demonstrate intermediate signal on ADC map and increased T2/FLAIR signal. No acute intracranial hemorrhage, midline shift, abnormal extr a-axial collection, hydrocephalus or intracranial mass. No pathologic thinning artifact on the T2*ser ies. [id number] scattered T2/FLAIR hyperintense foci throughout the white matter. Midline struc tures appear unremarkable. Cerebral venous sinuses and major arterial flow voids appear patent. Skull, orbits and soft tissues a re unremarkable. Mastoid air cells and paranasal sinuses are clear. MRA: No aneurysm, dissection, high-grade stenosis or arterial occlusion identified. IMPRESSION: 1. No acute intracranial hemorrhage, midline shift or acute territorial infarct. 2. Two subcentimeter foci of increased diffusion-weighted signal within the periventricular right fro ntal lobe likely represent subacute lacunar infarcts. T2 shine through related to underlying chronic microvascular ischemic disease could appear similarly. 3. Unremarkable MRA. ACT 112: Negative or not required by law. The above report was generated using voice recognition software. It may contain grammatical, syntax o r spelling errors. Electronically signed by: Zachery Kahn M.D. 03/26/2023 11:23 AM
--- NOTE | 2023-03-26 12:02 | Neurology Consultation ---
Date of Consultation March 26, 2023 Assessment & Plan (1) TIA (transient ischemic attack): Patient presents with GI related nausea/vomiting with noted metabolic acidosis on admission. In this context of metabolic derangement, some slight confusion can be expected. MRI notable for incidental T2 hyperintensities that are consistent with subacute stroke. The locations of these abnormalities is not consistent with his presenting symptoms. Regardless this is the opportunity to further work to address his stroke risk factors including smoking (which he reports cessation of in Nov 2022), diabetes with hbA1c goal <7, normotension and LDL goal <70. I discussed these risk factors and targets with the patient. For secondary stroke prevention would recommend antiplatelet therapy once cleared by GI - specifically aspirin 81mg daily as well as lipitor 40mg daily. -- Stroke risk factor reduction as above -- Start 81mg aspirin daily when able, defer to GI on timing -- Lipitor 40mg daily, goal LDL <70 -- Echo (can be done as outpatient) -- Holter monitor/zio patch as outpatient -- Neurology follow-up in 6-8 weeks -- Please contact us with further questions. Telehealth Consultation Telehealth Information Telehealth Information: I performed this visit using a real-time telehealth connection between my location and the patients location ([facility]). After connecting through interactive tele-video, patient was identified by name and date of and/or wristband check.Patient (or authorized healthcare customer support representative) was informed that this was a telemedicine visit and it was being conducted confidentially over secure lines. My office door was closed and no one else was present in the room with me.Patient (or authorized healthcare customer support representative) provided consent to proceed with the visit, expressed an understanding of privacy and security of the telemedicine visit, and gave permission to have a hospital customer support representative in the room in order to assist with the visit and to conduct portions of the visit, as needed. I informed the patient (or authorized healthcare customer support representative) that I reviewed their record and presented the opportunity for them to ask any questions regarding the visit today. The patient agreed to participate. History of Present Illness Reason for Consultation: Dizziness Requesting Physician: Dr. Hicks Attending Physician: Suresh Hicks MD History of Present Illness Román Garcia is a 57 yo M presenting with a week of dizziness, nausea, vomiting and generalized weakness. Four days ago he reports having difficulty writing as well, his letters did not appear correctly in his handwriting. He otherwise denies any difficulty understanding others or knowing what he wanted to say. He has never had symptoms like this in the past and presented to [facility] primarily for abdomina pain and concern for GI bleeding as he saw what he thought might be blood in his emesis. Currently he denies any difficulty speaking, no focal weakness or numbness. Never had a stroke before. Allergies Allergy/AdvReac Type Severity Reaction Status Date / Time No Known Allergies Allergy Unverified 03/25/23 22:44 Home Medications Medication Instructions Recorded Confirmed Type ondansetron 4 mg disintegrating 4 mg PO Q6H PRN nausea and 03/24/23 03/25/23 Rx tablet vomiting #12 tabs Metamucil Gummies 2 - 3 tabs PO DAILY 03/25/23 03/25/23 History Prebiotic Gummy 2 - 3 tabs PO DAILY 03/25/23 03/25/23 History empagliflozin 25 mg tablet 25 mg PO DAILY 03/25/23 03/25/23 History (Jardiance) ketoconazole 2 % topical cream 1 applic topical BID 03/25/23 03/25/23 History losartan 25 mg tablet 25 mg PO QAM 03/25/23 03/25/23 History metformin 500 mg tablet 1,000 mg PO BID 03/25/23 03/25/23 History nicotine 21 mg/24 hr daily 1 patch topical DAILY 03/25/23 03/25/23 History transdermal patch paroxetine HCl 30 mg tablet 30 mg PO QAM 03/25/23 03/25/23 History Patient History Medical History PTSD (post-traumatic stress disorder) Social History Smoking Status: Former smoker Cigarettes Per Day: 1 pack/day; Smoking End Date: Stated, "Just quit."; Second Hand Exposure: No; Do You Dip or Chew Tobacco: Yes (Quit); Tobacco Cessation Education Requested by Patient: No Hx Alcohol Use: No Hx Substance Use: Yes Last Used Substance Other:: 1-2 weeks ago Substance Use Type Other:: medical marijuana Preferred Language: Slovak Communication Ability: Effective Operative Supervisor Required: No Beliefs That Will Affect Care: None Current Living Situation: Alone Other Information That Helps Us Care for You: No Feels Safe at Home: Yes Safety Concerns: Feels Safe At This Time Assistive Devices: Glasses Review of Systems +vomiting, dizziness Physical Exam Neurological Examination: Mental Status: Awake and alert. Oriented to person, place, and time. Fluent. Comprehension intact. Affect appropriate. Cranial Nerves: II: Reads NIHSS cards, hendricks grossly intact. III/IV/: Versions intact without nystagmus, no gaze preference. V: Facial sensation symmetric to light touch VII: Facial expression symmetric VIII: Hearing intact to voice XII: Tongue midline Motor: Strength was symmetric and antigravity throughout. Pronator drift was absent. There were no abnormal movements. Coordination: Finger to nose was intact. Reflexes: Unable to assess over telemedicine Results & Data Vital Signs (Past 12 Hours) Vital Signs Temp Pulse Pulse Resp BP BP Pulse Ox 03/26/23 11:18 36.8 C 92 H 18 121/78 98 03/26/23 07:49 36.4 C L 87 18 113/68 98 03/26/23 07:22 84 03/26/23 01:50 36.8 C 97 H 20 145/85 H 98 03/26/23 03:00 98 H 03/26/23 00:11 98 H O2 Del Method 03/26/23 11:18 Room Air 03/26/23 07:49 Room Air 03/26/23 07:22 03/26/23 01:50 Room Air 03/26/23 03:00 03/26/23 00:11 Laboratory Results Abnormal lab results 03/25/23 03/25/23 03/25/23 Range/Units 19:26 19:26 19:27 WBC 21.16 H (4.8-10.8) K/ul RBC (4.70-6.10) M/uL Hct (42.0-52.0) % MCHC 36.3 H (32.0-36.0) g/dL MPV 7.9 L (9.4-12.4) fL Neut # (Auto) 16.75 H (1.40-6.50) K/uL [place] # (Auto) 1.12 H (0.11-0.59) K/uL Immature Gran # (Auto) 0.70 H (0.01-0.20) K/uL VBG pH (7.36-7.41) VBG pCO2 (38-50) mmHg Chloride 96 L (98-107) mmol/L Carbon Dioxide 12 L (21-32) mmol/L Anion Gap 29 H (3-11) BUN 30 H (6-23) mg/dl BUN/Creatinine Ratio 22.6 H (10-20) Glucose 200 H (70-99(Fasting)) mg/dl POC Glucose (70-99) mg/dl Calcium 10.4 H (8.6-10.3) mg/dl Total Protein 8.9 H (6.0-8.3) gm/dl Albumin 5.2 H (3.4-5.0) gm/dl Lipase 8 L (11-82) U/L PTH Intact (12.0-88.0) pg/ml Urine Protein 2+ H (Negative) Urine Glucose (UA) 3+ H (Negative) Urine Ketones 4+ H (Negative) Urine Blood Trace H (Negative) 03/25/23 03/26/23 03/26/23 Range/Units 22:05 00:30 00:30 WBC (4.8-10.8) K/ul RBC (4.70-6.10) M/uL Hct 41.8 L (42.0-52.0) % MCHC (32.0-36.0) g/dL MPV (9.4-12.4) fL Neut # (Auto) (1.40-6.50) K/uL [place] # (Auto) (0.11-0.59) K/uL Immature Gran # (Auto) (0.01-0.20) K/uL VBG pH (7.36-7.41) VBG pCO2 (38-50) mmHg Chloride (98-107) mmol/L Carbon Dioxide 12 L (21-32) mmol/L Anion Gap 18 H (3-11) BUN (6-23) mg/dl BUN/Creatinine Ratio 22.5 H (10-20) Glucose 125 H (70-99(Fasting)) mg/dl POC Glucose 131 H (70-99) mg/dl Calcium 8.2 L D (8.6-10.3) mg/dl Total Protein (6.0-8.3) gm/dl Albumin (3.4-5.0) gm/dl Lipase (11-82) U/L PTH Intact (12.0-88.0) pg/ml Urine Protein (Negative) Urine Glucose (UA) (Negative) Urine Ketones (Negative) Urine Blood (Negative) 03/26/23 03/26/23 03/26/23 Range/Units 00:30 00:30 05:55 WBC (4.8-10.8) K/ul RBC (4.70-6.10) M/uL Hct (42.0-52.0) % MCHC (32.0-36.0) g/dL MPV (9.4-12.4) fL Neut # (Auto) (1.40-6.50) K/uL [place] # (Auto) (0.11-0.59) K/uL Immature Gran # (Auto) (0.01-0.20) K/uL VBG pH 7.26 L (7.36-7.41) VBG pCO2 29 L (38-50) mmHg Chloride (98-107) mmol/L Carbon Dioxide (21-32) mmol/L Anion Gap (3-11) BUN (6-23) mg/dl BUN/Creatinine Ratio (10-20) Glucose (70-99(Fasting)) mg/dl POC Glucose 104 H (70-99) mg/dl Calcium (8.6-10.3) mg/dl Total Protein (6.0-8.3) gm/dl Albumin (3.4-5.0) gm/dl Lipase (11-82) U/L PTH Intact 169.9 H (12.0-88.0) pg/ml Urine Protein (Negative) Urine Glucose (UA) (Negative) Urine Ketones (Negative) Urine Blood (Negative) 03/26/23 03/26/23 03/26/23 Range/Units 07:11 07:11 12:01 WBC 18.62 H (4.8-10.8) K/ul RBC 4.35 L (4.70-6.10) M/uL Hct 40.4 L (42.0-52.0) % MCHC (32.0-36.0) g/dL MPV 7.7 L (9.4-12.4) fL Neut # (Auto) 13.47 H (1.40-6.50) K/uL [place] # (Auto) 1.82 H (0.11-0.59) K/uL Immature Gran # (Auto) 0.39 H (0.01-0.20) K/uL VBG pH (7.36-7.41) VBG pCO2 (38-50) mmHg Chloride (98-107) mmol/L Carbon Dioxide 13 L (21-32) mmol/L Anion Gap 16 H (3-11) BUN (6-23) mg/dl BUN/Creatinine Ratio 24.4 H (10-20) Glucose 105 H (70-99(Fasting)) mg/dl POC Glucose 103 H (70-99) mg/dl Calcium (8.6-10.3) mg/dl Total Protein (6.0-8.3) gm/dl Albumin (3.4-5.0) gm/dl Lipase (11-82) U/L PTH Intact (12.0-88.0) pg/ml Urine Protein (Negative) Urine Glucose (UA) (Negative) Urine Ketones (Negative) Urine Blood (Negative) Diagnostic Findings MRI brain - Two punctate subacute infarcts vs T2 shinethrough
[2023-03-26 12:11] LABS: Hematocrit (blood only) 45.6 % (42.0-52.0); Hemoglobin 16.2 g/dl (14.0-18.0)
[2023-03-26] MEDS: INSULIN ASPART PER UNIT CHARGE SC SCH ×3 (12:20→20:34)
--- NOTE | 2023-03-26 14:40 | Ultrasound Report ---
US thyroid CLINICAL HISTORY: 57 years-old Male with hyperparathyroidism- eval for parathyroid adenoma. COMPARISON: None TECHNIQUE: Multiple real time sonographic images of the thyroid were obtained accessing hernández scale ap pearance and color doppler flow. FINDINGS: MEASUREMENTS: Right lobe: 5.5 x 1.8 x 1.9 cm Left lobe: 4.9 x 1.3 x 1.7 cm Isthmus: 0.4 cm PARENCHYMA: The thyroid parenchymal echotexture is predominantly homogeneous. NODULES: No suspicious nodules are identified. 5 mm hypoechoic nodule in the mid right thyroid sugges tive of a colloid cyst. IMPRESSION: No suspicious thyroid nodules identified. ACT 112: Negative or not required by law. The above report was generated using voice recognition software. It may contain grammatical, syntax o r spelling errors. Electronically signed by: Zachery Kahn M.D. 03/26/2023 2:38 PM
--- NOTE | 2023-03-26 15:35 | Gastrointestinal Consultation ---
Date of Consultation March 26, 2023 Assessment & Plan (1) Nausea & vomiting: He has had one episode of hematemesis and none since. His H/H have remained stable throughout. I don't plan emergent EGD on him. I suspect this is related to esophagitis or just irritation from vomiting. It does not sound like a charlotte-richey. I would treat him with PPI. As an outpatient after this has all resolved he needs colonoscopy and he can have EGD at that time as well. Will do in hospital if bleeding becomes more of an issue History of Present Illness Reason for Consultation: hematemesis Attending Physician: Suresh Hicks MD History of Present Illness 57 year old man admitted with hypertensive crisis and ? CVA had an episode of hematemesis on admit. Was seen in ER the day before for vomiting and it was felt to be an acute illness. He came back in with lightheadedness, symptoms of TIA and BP in the 200's systolic. He vomited red and brown blood on one episode of emesis and has had none since. He has a history of heartburn but got off PPI by going on coconut water. He has had some heartburn recently. He has never fernandez d an EGD or a colonoscopy. He denies abdominal pain and his stomach feels better today. Allergies Allergy/AdvReac Type Severity Reaction Status Date / Time No Known Allergies Allergy Unverified 03/25/23 22:44 Home Medications Medication Instructions Recorded Confirmed Type ondansetron 4 mg disintegrating 4 mg PO Q6H PRN nausea and 03/24/23 03/25/23 Rx tablet vomiting #12 tabs Metamucil Gummies 2 - 3 tabs PO DAILY 03/25/23 03/25/23 History Prebiotic Gummy 2 - 3 tabs PO DAILY 03/25/23 03/25/23 History empagliflozin 25 mg tablet 25 mg PO DAILY 03/25/23 03/25/23 History (Jardiance) ketoconazole 2 % topical cream 1 applic topical BID 03/25/23 03/25/23 History losartan 25 mg tablet 25 mg PO QAM 03/25/23 03/25/23 History metformin 500 mg tablet 1,000 mg PO BID 03/25/23 03/25/23 History nicotine 21 mg/24 hr daily 1 patch topical DAILY 03/25/23 03/25/23 History transdermal patch paroxetine HCl 30 mg tablet 30 mg PO QAM 03/25/23 03/25/23 History Patient History Medical History PTSD (post-traumatic stress disorder) Social History Smoking Status: Former smoker Cigarettes Per Day: 1 pack/day; Smoking End Date: Stated, "Just quit."; Second Hand Exposure: No; Do You Dip or Chew Tobacco: Yes (Quit); Tobacco Cessation Education Requested by Patient: No Hx Alcohol Use: No Hx Substance Use: Yes Last Used Substance Other:: 1-2 weeks ago Substance Use Type Other:: medical marijuana Preferred Language: Mongolian Communication Ability: Effective Artificial Fly Tier Required: No Beliefs That Will Affect Care: None Current Living Situation: Alone Other Information That Helps Us Care for You: No Feels Safe at Home: Yes Safety Concerns: Feels Safe At This Time Assistive Devices: Glasses Review of Systems Review of Systems: All systems reviewed & are unremarkable except as noted in HPI & below Physical Exam Constitutional: WD/WN, vitals as above no acute distress Eyes: PERRL, conjunctivae normal, anicteric sclerae ENMT: external ear and nose normal, oropharynx normal Neck: trachea midline, no thyromegaly Respiratory: normal respiratory effort, lungs clear to auscultation Cardiovascular: RRR, no murmur, no edema Gastrointestinal (Abdomen): normal bowel sounds, soft, nontender, no hepatosplenomegaly Musculoskeletal: Extremities: no cyanosis and no clubbing Skin: no rashes, warm and dry Neurologic: PERRL, EOMI, accommodation nl, no face palsy, no dysarthria Psychiatric: Orientation: alert and oriented x 3 Results & Data Vital Signs (Past 12 Hours) Vital Signs Temp Pulse Pulse Resp BP Pulse Ox O2 Del Method 03/26/23 11:18 36.8 C 92 H 18 121/78 98 Room Air 03/26/23 07:49 36.4 C L 87 18 113/68 98 Room Air 03/26/23 07:22 84 Laboratory Results 03/26/23 03/26/23 03/26/23 Range/Units 12:01 11:49 07:11 WBC (4.8-10.8) K/ul RBC (4.70-6.10) M/uL Hgb 16.2 (14.0-18.0) g/dl Hct 45.6 (42.0-52.0) % MCV (80.0-100.0) fL MCH (25.0-34.0) pg MCHC (32.0-36.0) g/dL RDW Std Deviation (36.4-46.3) fL RDW Coeff of Asad (11.5-14.5) % Plt Count (130-400) K/uL MPV (9.4-12.4) fL Immature Gran % (Auto) % Neut % (Auto) % Lymph % (Auto) % Twiggs % (Auto) % Eos % (Auto) % Baso % (Auto) % Neut # (Auto) (1.40-6.50) K/uL Lymph # (Auto) (1.2-3.4) K/uL Twiggs # (Auto) (0.11-0.59) K/uL Eos # (Auto) (0-0.50) K/uL Baso # (Auto) (0-0.2) K/uL Immature Gran # (Auto) (0.01-0.20) K/uL VBG pH (7.36-7.41) VBG pCO2 (38-50) mmHg VBG pO2 mmHg VBG HCO3 mmol/L VBG O2 Saturation % VBG Base Excess mEq/L Sodium 136 (136-145) mmol/L Potassium 4.1 (3.5-5.1) mmol/L Chloride 107 (98-107) mmol/L Carbon Dioxide 13 L (21-32) mmol/L Anion Gap 16 H (3-11) BUN 20 (6-23) mg/dl Creatinine 0.82 (0.6-1.4) mg/dl Est Cr Clr Drug Dosing 93.1 ml/min Est GFR ( Amer) 115.4 ml/min Est GFR (Non-Af Amer) 99.6 ml/min BUN/Creatinine Ratio 24.4 H (10-20) Glucose 105 H (70-99(Fasting)) mg/dl POC Glucose 103 H (70-99) mg/dl Calcium 8.7 (8.6-10.3) mg/dl Phosphorus (2.5-4.9) mg/dl Magnesium (1.7-2.4) mg/dl Total Bilirubin (0.2-1.0) mg/dl AST (13-39) U/L ALT (7-52) U/L Alkaline Phosphatase (34-104) U/L Total Protein (6.0-8.3) gm/dl Albumin (3.4-5.0) gm/dl Globulin (2.5-4.0) gm/dl Albumin/Globulin Ratio (0.9-2) Triglycerides 124 (0-150) mg/dl Cholesterol 139 (0-200) mg/dl LDL Cholesterol, Calc 73 mg/dl VLDL Cholesterol, Calc 25 (0-30) mg/dl HDL Cholesterol 41 mg/dl Cholesterol/HDL Ratio 3.4 (0-5) Lipase (11-82) U/L Procalcitonin (0-0.5) ng/ml TSH (0.300-4.500) uIu/ml PTH Intact (12.0-88.0) pg/ml Urine Color Urine Appearance (Clear) Urine pH (4.5-7.5) Ur Specific Regina (1.000-1.030) Urine Protein (Negative) Urine Glucose (UA) (Negative) Urine Ketones (Negative) Urine Blood (Negative) Urine Nitrite (Negative) Urine Bilirubin (Negative) Urine Urobilinogen (Negative) Ur Leukocyte Esterase (Negative) Urine WBC (Auto) (0-5) /hpf Urine RBC (Auto) (0-4) /hpf U Hyaline Cast (Auto) (0-5) /lpf U Epithel Cells (Auto) (0-5) /lpf Urine Bacteria (Auto) (Negative) Lyme Disease IgG Ab (Negative) Lyme Disease IgM Ab (Negative) SARS-CoV-2, RNA, NAAT (NEGATIVE) Blood Type Antibody Screen 03/26/23 03/26/23 03/26/23 Range/Units 07:11 05:55 00:30 WBC 18.62 H (4.8-10.8) K/ul RBC 4.35 L (4.70-6.10) M/uL Hgb 14.4 (14.0-18.0) g/dl Hct 40.4 L (42.0-52.0) % MCV 92.9 (80.0-100.0) fL MCH 33.1 (25.0-34.0) pg MCHC 35.6 (32.0-36.0) g/dL RDW Std Deviation 42.2 (36.4-46.3) fL RDW Coeff of Asad 12.2 (11.5-14.5) % Plt Count 258 (130-400) K/uL MPV 7.7 L (9.4-12.4) fL Immature Gran % (Auto) 2.1 % Neut % (Auto) 72.3 % Lymph % (Auto) 15.2 % Twiggs % (Auto) 9.8 % Eos % (Auto) 0.2 % Baso % (Auto) 0.4 % Neut # (Auto) 13.47 H (1.40-6.50) K/uL Lymph # (Auto) 2.83 (1.2-3.4) K/uL Twiggs # (Auto) 1.82 H (0.11-0.59) K/uL Eos # (Auto) 0.04 (0-0.50) K/uL Baso # (Auto) 0.07 (0-0.2) K/uL Immature Gran # (Auto) 0.39 H (0.01-0.20) K/uL VBG pH (7.36-7.41) VBG pCO2 (38-50) mmHg VBG pO2 mmHg VBG HCO3 mmol/L VBG O2 Saturation % VBG Base Excess mEq/L Sodium (136-145) mmol/L Potassium (3.5-5.1) mmol/L Chloride (98-107) mmol/L Carbon Dioxide (21-32) mmol/L Anion Gap (3-11) BUN (6-23) mg/dl Creatinine (0.6-1.4) mg/dl Est Cr Clr Drug Dosing ml/min Est GFR ( Amer) ml/min Est GFR (Non-Af Amer) ml/min BUN/Creatinine Ratio (10-20) Glucose (70-99(Fasting)) mg/dl POC Glucose 104 H (70-99) mg/dl Calcium (8.6-10.3) mg/dl Phosphorus (2.5-4.9) mg/dl Magnesium (1.7-2.4) mg/dl Total Bilirubin (0.2-1.0) mg/dl AST (13-39) U/L ALT (7-52) U/L Alkaline Phosphatase (34-104) U/L Total Protein (6.0-8.3) gm/dl Albumin (3.4-5.0) gm/dl Globulin (2.5-4.0) gm/dl Albumin/Globulin Ratio (0.9-2) Triglycerides (0-150) mg/dl Cholesterol (0-200) mg/dl LDL Cholesterol, Calc mg/dl VLDL Cholesterol, Calc (0-30) mg/dl HDL Cholesterol mg/dl Cholesterol/HDL Ratio (0-5) Lipase (11-82) U/L Procalcitonin (0-0.5) ng/ml TSH (0.300-4.500) uIu/ml PTH Intact (12.0-88.0) pg/ml Urine Color Urine Appearance (Clear) Urine pH (4.5-7.5) Ur Specific Regina (1.000-1.030) Urine Protein (Negative) Urine Glucose (UA) (Negative) Urine Ketones (Negative) Urine Blood (Negative) Urine Nitrite (Negative) Urine Bilirubin (Negative) Urine Urobilinogen (Negative) Ur Leukocyte Esterase (Negative) Urine WBC (Auto) (0-5) /hpf Urine RBC (Auto) (0-4) /hpf U Hyaline Cast (Auto) (0-5) /lpf U Epithel Cells (Auto) (0-5) /lpf Urine Bacteria (Auto) (Negative) Lyme Disease IgG Ab Negative (Negative) Lyme Disease IgM Ab Negative (Negative) SARS-CoV-2, RNA, NAAT (NEGATIVE) Blood Type Antibody Screen 03/26/23 03/26/23 03/26/23 Range/Units 00:30 00:30 00:30 WBC (4.8-10.8) K/ul RBC (4.70-6.10) M/uL Hgb (14.0-18.0) g/dl Hct (42.0-52.0) % MCV (80.0-100.0) fL MCH (25.0-34.0) pg MCHC (32.0-36.0) g/dL RDW Std Deviation (36.4-46.3) fL RDW Coeff of Asad (11.5-14.5) % Plt Count (130-400) K/uL MPV (9.4-12.4) fL Immature Gran % (Auto) % Neut % (Auto) % Lymph % (Auto) % Twiggs % (Auto) % Eos % (Auto) % Baso % (Auto) % Neut # (Auto) (1.40-6.50) K/uL Lymph # (Auto) (1.2-3.4) K/uL Twiggs # (Auto) (0.11-0.59) K/uL Eos # (Auto) (0-0.50) K/uL Baso # (Auto) (0-0.2) K/uL Immature Gran # (Auto) (0.01-0.20) K/uL VBG pH 7.26 L (7.36-7.41) VBG pCO2 29 L (38-50) mmHg VBG pO2 51 mmHg VBG HCO3 13 mmol/L VBG O2 Saturation 79.9 % VBG Base Excess -12.6 mEq/L Sodium 137 (136-145) mmol/L Potassium 4.1 (3.5-5.1) mmol/L Chloride 107 (98-107) mmol/L Carbon Dioxide 12 L (21-32) mmol/L Anion Gap 18 H (3-11) BUN 23 (6-23) mg/dl Creatinine 1.02 D (0.6-1.4) mg/dl Est Cr Clr Drug Dosing 68.1 ml/min Est GFR ( Amer) 95.5 ml/min Est GFR (Non-Af Amer) 82.4 ml/min BUN/Creatinine Ratio 22.5 H (10-20) Glucose 125 H (70-99(Fasting)) mg/dl POC Glucose (70-99) mg/dl Calcium 8.2 L D (8.6-10.3) mg/dl Phosphorus (2.5-4.9) mg/dl Magnesium (1.7-2.4) mg/dl Total Bilirubin (0.2-1.0) mg/dl AST (13-39) U/L ALT (7-52) U/L Alkaline Phosphatase (34-104) U/L Total Protein (6.0-8.3) gm/dl Albumin (3.4-5.0) gm/dl Globulin (2.5-4.0) gm/dl Albumin/Globulin Ratio (0.9-2) Triglycerides (0-150) mg/dl Cholesterol (0-200) mg/dl LDL Cholesterol, Calc mg/dl VLDL Cholesterol, Calc (0-30) mg/dl HDL Cholesterol mg/dl Cholesterol/HDL Ratio (0-5) Lipase (11-82) U/L Procalcitonin (0-0.5) ng/ml TSH (0.300-4.500) uIu/ml PTH Intact 169.9 H (12.0-88.0) pg/ml Urine Color Urine Appearance (Clear) Urine pH (4.5-7.5) Ur Specific Regina (1.000-1.030) Urine Protein (Negative) Urine Glucose (UA) (Negative) Urine Ketones (Negative) Urine Blood (Negative) Urine Nitrite (Negative) Urine Bilirubin (Negative) Urine Urobilinogen (Negative) Ur Leukocyte Esterase (Negative) Urine WBC (Auto) (0-5) /hpf Urine RBC (Auto) (0-4) /hpf U Hyaline Cast (Auto) (0-5) /lpf U Epithel Cells (Auto) (0-5) /lpf Urine Bacteria (Auto) (Negative) Lyme Disease IgG Ab (Negative) Lyme Disease IgM Ab (Negative) SARS-CoV-2, RNA, NAAT (NEGATIVE) Blood Type Antibody Screen 03/26/23 03/26/23 03/25/23 Range/Units 00:30 00:30 Unknown WBC (4.8-10.8) K/ul RBC (4.70-6.10) M/uL Hgb 14.7 (14.0-18.0) g/dl Hct 41.8 L (42.0-52.0) % MCV (80.0-100.0) fL MCH (25.0-34.0) pg MCHC (32.0-36.0) g/dL RDW Std Deviation (36.4-46.3) fL RDW Coeff of Asad (11.5-14.5) % Plt Count (130-400) K/uL MPV (9.4-12.4) fL Immature Gran % (Auto) % Neut % (Auto) % Lymph % (Auto) % Twiggs % (Auto) % Eos % (Auto) % Baso % (Auto) % Neut # (Auto) (1.40-6.50) K/uL Lymph # (Auto) (1.2-3.4) K/uL Twiggs # (Auto) (0.11-0.59) K/uL Eos # (Auto) (0-0.50) K/uL Baso # (Auto) (0-0.2) K/uL Immature Gran # (Auto) (0.01-0.20) K/uL VBG pH (7.36-7.41) VBG pCO2 (38-50) mmHg VBG pO2 mmHg VBG HCO3 mmol/L VBG O2 Saturation % VBG Base Excess mEq/L Sodium (136-145) mmol/L Potassium (3.5-5.1) mmol/L Chloride (98-107) mmol/L Carbon Dioxide (21-32) mmol/L Anion Gap (3-11) BUN (6-23) mg/dl Creatinine (0.6-1.4) mg/dl Est Cr Clr Drug Dosing ml/min Est GFR ( Amer) ml/min Est GFR (Non-Af Amer) ml/min BUN/Creatinine Ratio (10-20) Glucose (70-99(Fasting)) mg/dl POC Glucose (70-99) mg/dl Calcium (8.6-10.3) mg/dl Phosphorus (2.5-4.9) mg/dl Magnesium (1.7-2.4) mg/dl Total Bilirubin (0.2-1.0) mg/dl AST (13-39) U/L ALT (7-52) U/L Alkaline Phosphatase (34-104) U/L Total Protein (6.0-8.3) gm/dl Albumin (3.4-5.0) gm/dl Globulin (2.5-4.0) gm/dl Albumin/Globulin Ratio (0.9-2) Triglycerides (0-150) mg/dl Cholesterol (0-200) mg/dl LDL Cholesterol, Calc mg/dl VLDL Cholesterol, Calc (0-30) mg/dl HDL Cholesterol mg/dl Cholesterol/HDL Ratio (0-5) Lipase (11-82) U/L Procalcitonin (0-0.5) ng/ml TSH (0.300-4.500) uIu/ml PTH Intact (12.0-88.0) pg/ml Urine Color Urine Appearance (Clear) Urine pH (4.5-7.5) Ur Specific Regina (1.000-1.030) Urine Protein (Negative) Urine Glucose (UA) (Negative) Urine Ketones (Negative) Urine Blood (Negative) Urine Nitrite (Negative) Urine Bilirubin (Negative) Urine Urobilinogen (Negative) Ur Leukocyte Esterase (Negative) Urine WBC (Auto) (0-5) /hpf Urine RBC (Auto) (0-4) /hpf U Hyaline Cast (Auto) (0-5) /lpf U Epithel Cells (Auto) (0-5) /lpf Urine Bacteria (Auto) (Negative) Lyme Disease IgG Ab (Negative) Lyme Disease IgM Ab (Negative) SARS-CoV-2, RNA, NAAT NEGATIVE (NEGATIVE) Blood Type A Positive Antibody Screen NEGATIVE 03/25/23 03/25/23 03/25/23 Range/Units 22:16 22:05 19:27 WBC (4.8-10.8) K/ul RBC (4.70-6.10) M/uL Hgb (14.0-18.0) g/dl Hct (42.0-52.0) % MCV (80.0-100.0) fL MCH (25.0-34.0) pg MCHC (32.0-36.0) g/dL RDW Std Deviation (36.4-46.3) fL RDW Coeff of Asad (11.5-14.5) % Plt Count (130-400) K/uL MPV (9.4-12.4) fL Immature Gran % (Auto) % Neut % (Auto) % Lymph % (Auto) % Twiggs % (Auto) % Eos % (Auto) % Baso % (Auto) % Neut # (Auto) (1.40-6.50) K/uL Lymph # (Auto) (1.2-3.4) K/uL Twiggs # (Auto) (0.11-0.59) K/uL Eos # (Auto) (0-0.50) K/uL Baso # (Auto) (0-0.2) K/uL Immature Gran # (Auto) (0.01-0.20) K/uL VBG pH (7.36-7.41) VBG pCO2 (38-50) mmHg VBG pO2 mmHg VBG HCO3 mmol/L VBG O2 Saturation % VBG Base Excess mEq/L Sodium (136-145) mmol/L Potassium (3.5-5.1) mmol/L Chloride (98-107) mmol/L Carbon Dioxide (21-32) mmol/L Anion Gap (3-11) BUN (6-23) mg/dl Creatinine (0.6-1.4) mg/dl Est Cr Clr Drug Dosing ml/min Est GFR ( Amer) ml/min Est GFR (Non-Af Amer) ml/min BUN/Creatinine Ratio (10-20) Glucose (70-99(Fasting)) mg/dl POC Glucose 131 H (70-99) mg/dl Calcium (8.6-10.3) mg/dl Phosphorus (2.5-4.9) mg/dl Magnesium (1.7-2.4) mg/dl Total Bilirubin (0.2-1.0) mg/dl AST (13-39) U/L ALT (7-52) U/L Alkaline Phosphatase (34-104) U/L Total Protein (6.0-8.3) gm/dl Albumin (3.4-5.0) gm/dl Globulin (2.5-4.0) gm/dl Albumin/Globulin Ratio (0.9-2) Triglycerides (0-150) mg/dl Cholesterol (0-200) mg/dl LDL Cholesterol, Calc mg/dl VLDL Cholesterol, Calc (0-30) mg/dl HDL Cholesterol mg/dl Cholesterol/HDL Ratio (0-5) Lipase (11-82) U/L Procalcitonin 0.20 (0-0.5) ng/ml TSH 0.895 (0.300-4.500) uIu/ml PTH Intact (12.0-88.0) pg/ml Urine Color Urine Appearance (Clear) Urine pH (4.5-7.5) Ur Specific Regina (1.000-1.030) Urine Protein (Negative) Urine Glucose (UA) (Negative) Urine Ketones (Negative) Urine Blood (Negative) Urine Nitrite (Negative) Urine Bilirubin (Negative) Urine Urobilinogen (Negative) Ur Leukocyte Esterase (Negative) Urine WBC (Auto) (0-5) /hpf Urine RBC (Auto) (0-4) /hpf U Hyaline Cast (Auto) (0-5) /lpf U Epithel Cells (Auto) (0-5) /lpf Urine Bacteria (Auto) (Negative) Lyme Disease IgG Ab (Negative) Lyme Disease IgM Ab (Negative) SARS-CoV-2, RNA, NAAT (NEGATIVE) Blood Type Antibody Screen 03/25/23 03/25/23 03/25/23 Range/Units 19:27 19:26 19:26 WBC 21.16 H (4.8-10.8) K/ul RBC 5.31 (4.70-6.10) M/uL Hgb 17.5 (14.0-18.0) g/dl Hct 48.2 (42.0-52.0) % MCV 90.8 (80.0-100.0) fL MCH 33.0 (25.0-34.0) pg MCHC 36.3 H (32.0-36.0) g/dL RDW Std Deviation 39.9 (36.4-46.3) fL RDW Coeff of Asad 12.0 (11.5-14.5) % Plt Count 355 (130-400) K/uL MPV 7.9 L (9.4-12.4) fL Immature Gran % (Auto) 3.3 % Neut % (Auto) 79.2 % Lymph % (Auto) 11.6 % Twiggs % (Auto) 5.3 % Eos % (Auto) 0.0 % Baso % (Auto) 0.6 % Neut # (Auto) 16.75 H (1.40-6.50) K/uL Lymph # (Auto) 2.46 (1.2-3.4) K/uL Twiggs # (Auto) 1.12 H (0.11-0.59) K/uL Eos # (Auto) 0.00 (0-0.50) K/uL Baso # (Auto) 0.13 (0-0.2) K/uL Immature Gran # (Auto) 0.70 H (0.01-0.20) K/uL VBG pH (7.36-7.41) VBG pCO2 (38-50) mmHg VBG pO2 mmHg VBG HCO3 mmol/L VBG O2 Saturation % VBG Base Excess mEq/L Sodium 137 (136-145) mmol/L Potassium 3.8 (3.5-5.1) mmol/L Chloride 96 L (98-107) mmol/L Carbon Dioxide 12 L (21-32) mmol/L Anion Gap 29 H (3-11) BUN 30 H (6-23) mg/dl Creatinine 1.33 (0.6-1.4) mg/dl Est Cr Clr Drug Dosing 52.2 ml/min Est GFR ( Amer) 69.3 ml/min Est GFR (Non-Af Amer) 59.8 ml/min BUN/Creatinine Ratio 22.6 H (10-20) Glucose 200 H (70-99(Fasting)) mg/dl POC Glucose (70-99) mg/dl Calcium 10.4 H (8.6-10.3) mg/dl Phosphorus 4.3 (2.5-4.9) mg/dl Magnesium 2.3 (1.7-2.4) mg/dl Total Bilirubin 0.8 (0.2-1.0) mg/dl AST 24 (13-39) U/L ALT 21 (7-52) U/L Alkaline Phosphatase 81 (34-104) U/L Total Protein 8.9 H (6.0-8.3) gm/dl Albumin 5.2 H (3.4-5.0) gm/dl Globulin 3.7 (2.5-4.0) gm/dl Albumin/Globulin Ratio 1.4 (0.9-2) Triglycerides (0-150) mg/dl Cholesterol (0-200) mg/dl LDL Cholesterol, Calc mg/dl VLDL Cholesterol, Calc (0-30) mg/dl HDL Cholesterol mg/dl Cholesterol/HDL Ratio (0-5) Lipase 8 L (11-82) U/L Procalcitonin (0-0.5) ng/ml TSH (0.300-4.500) uIu/ml PTH Intact (12.0-88.0) pg/ml Urine Color Yellow Urine Appearance Clear (Clear) Urine pH 5.0 (4.5-7.5) Ur Specific Regina 1.027 (1.000-1.030) Urine Protein 2+ H (Negative) Urine Glucose (UA) 3+ H (Negative) Urine Ketones 4+ H (Negative) Urine Blood Trace H (Negative) Urine Nitrite Negative (Negative) Urine Bilirubin Negative (Negative) Urine Urobilinogen Negative (Negative) Ur Leukocyte Esterase Negative (Negative) Urine WBC (Auto) 1-5 (0-5) /hpf Urine RBC (Auto) 0-4 (0-4) /hpf U Hyaline Cast (Auto) 0 (0-5) /lpf U Epithel Cells (Auto) 0-5 (0-5) /lpf Urine Bacteria (Auto) Negative (Negative) Lyme Disease IgG Ab (Negative) Lyme Disease IgM Ab (Negative) SARS-CoV-2, RNA, NAAT (NEGATIVE) Blood Type Antibody Screen Diagnostic Findings Abdomen/Pelvis CT 03/25/23 19:30 Exam(s): CT ABDOMEN + PELVIS With Contrast EXAM: CT Abdomen and Pelvis With Intravenous Contrast CLINICAL HISTORY: Reason for exam: abd pain N/V /D. TECHNIQUE: Axial computed tomography images of the abdomen and pelvis with intravenous contrast. CTDI is 10.94 mGy and DLP is 522.83 mGy-cm. Automated exposure control was utilized for the study. A dose lowering technique was utilized adhering to the principles of ALARA. CONTRAST: Contrast must be dictated COMPARISON: No relevant prior studies available. FINDINGS: Mediastinum: Mild thickening of the distal esophagus. ABDOMEN: Liver: Mild fatty liver. Gallbladder and bile ducts: No radiodense stones. No biliary ductal dilation. Pancreas: Unremarkable. Spleen: Unremarkable. Adrenals: 14 mm right adrenal nodule. Kidneys and ureters: No renal or ureteral calculi. No obstructive changes. Stomach and bowel: No paulie mural thickening. Nonobstructive bowel gas pattern. PELVIS: Appendix: Unremarkable appendix. Bladder: Unremarkable. Reproductive: Unremarkable. ABDOMEN and PELVIS: Intraperitoneal space: Unremarkable. Bones/joints: No acute fracture. Soft tissues: Unremarkable. Vasculature: No acute process. Lymph nodes: No bulky adenopathy. IMPRESSION: Mild thickening of the distal esophagus. Could represent esophagitis. Electronically signed by: Bárbara Zimmerman M.D. 03/25/23 21:[address] 03/25/23 22:49 Exam(s): CT HEAD Without Contrast EXAM: CT Head Without Intravenous Contrast CLINICAL HISTORY: Reason for exam: fernandez, htn. TECHNIQUE: Axial computed tomography images of the head/brain without intravenous contrast. Automated exposure control was utilized for the study. A dose lowering technique was utilized adhering to the principles of ALARA. COMPARISON: No relevant prior studies available. FINDINGS: Brain: Unremarkable. No hemorrhage. No significant white matter disease. No edema. Ventricles: Unremarkable. No ventriculomegaly. Bones/joints: Unremarkable. No acute fracture. Soft tissues: Unremarkable. Sinuses: Unremarkable as visualized. No acute sinusitis. Mastoid air cells: Unremarkable as visualized. No mastoid effusion. IMPRESSION: Normal head/brain CT. Electronically signed by: Kendall Christianson MD 03/25/23 23:58 PM Brain MRI 03/26/23 02:32 MR brain wo con, MR angio head wo con HISTORY: 57 years-old Male tia acute stroke like symptoms COMPARISON: Head CT 03/25/2023 TECHNIQUE: Multiplanar multisequence MRI of the brain was obtained without the use of IV contrast. MRA of the head was obtained without use of IV contrast utilizing 3-D [id number]-rygeyq or mass. All measurements were obtained according to NASCET criteria. FINDINGS: BRAIN MRI: No acute or subacute territorial infarct. There are 2 subcentimeter foci measuring up to 5 mm within the periventricular right frontal lobe on image 15 series 5 which demonstrate intermediate signal on ADC map and increased T2/FLAIR signal. No acute intracranial hemorrhage, midline shift, abnormal extra-axial collection, hydrocephalus or intracranial mass. No pathologic thinning artifact on the T2*series. Iuch-go-ywrvlaqt scattered T2/FLAIR hyperintense foci throughout the white matter. Midline structures appear unremarkable. Cerebral venous sinuses and major arterial flow voids appear patent. Skull, orbits and soft tissues are unremarkable. Mastoid air cells and paranasal sinuses are clear. MRA: No aneurysm, dissection, high-grade stenosis or arterial occlusion identified. IMPRESSION: 1. No acute intracranial hemorrhage, midline shift or acute territorial infarct. 2. Two subcentimeter foci of increased diffusion-weighted signal within the periventricular right frontal lobe likely represent subacute lacunar infarcts. T2 shine through related to underlying chronic microvascular ischemic disease could appear similarly. 3. Unremarkable MRA. ACT 112: Negative or not required by law. The above report was generated using voice recognition software. It may contain grammatical, syntax or spelling errors. Electronically signed by: Zachery Kahn M.D. 03/26/2023 11:23 AM Carotid Doppler Study 03/26/23 02:32 US carotid doppler BI CLINICAL HISTORY: 57 years-old Male with tia. Acute stroke like symptoms COMPARISON: None TECHNIQUE: Multiple real time sonographic images of the carotid bifurcations were obtained assessing hernández scale, color Doppler and spectral wave form appearance FINDINGS: RIGHT CAROTID: The peak systolic velocity measured within the right ICA is 99.5 cm/sec. The end diastolic velocity measured 8.5 cm/sec. The ICA to CCA ratio measured 0.9 which correlates with a stenosis of 0-50%. Mild atherosclerotic plaque of the right carotid bulb and proximal right ICA. LEFT CAROTID: The peak systolic velocity measurement of the left ICA is 96.6 cm/sec. The end diastolic velocity measured 14.4 cm/sec. The ICA to CCA ratio measured 1.0 which correlates with a stenosis of 0-50%. Mild atherosclerotic plaque of the left carotid bulb and proximal left ICA. There is normal antegrade vertebral flow bilaterally. IMPRESSION: 1. No hemodynamically significant stenosis or significant atherosclerotic plaquing. 2. Normal antegrade vertebral flow bilaterally. ACT 112: Negative or not required by law. The above report was generated using voice recognition software. It may contain grammatical, syntax or spelling errors. Electronically signed by: Zachery Kahn M.D. 03/26/2023 8:10 AM Head MRA 03/26/23 02:32 MR brain wo con, MR angio head wo con HISTORY: 57 years-old Male tia acute stroke like symptoms COMPARISON: Head CT 03/25/2023 TECHNIQUE: Multiplanar multisequence MRI of the brain was obtained without the use of IV contrast. MRA of the head was obtained without use of IV contrast utilizing 3-D [id number] or mass. All measurements were obtained according to NASCET criteria. FINDINGS: BRAIN MRI: No acute or subacute territorial infarct. There are 2 subcentimeter foci measuring up to 5 mm within the periventricular right frontal lobe on image 15 series 5 which demonstrate intermediate signal on ADC map and increased T2/FLAIR signal. No acute intracranial hemorrhage, midline shift, abnormal extra-axial collection, hydrocephalus or intracranial mass. No pathologic thinning artifact on the T2*series. Ukkz-qu-tovjwybv scattered T2/FLAIR hyperintense foci throu ghout the white matter. Midline structures appear unremarkable. Cerebral venous sinuses and major arterial flow voids appear patent. Skull, orbits and soft tissues are unremarkable. Mastoid air cells and paranasal sinuses are clear. MRA: No aneurysm, dissection, high-grade stenosis or arterial occlusion identified. IMPRESSION: 1. No acute intracranial hemorrhage, midline shift or acute territorial infarct. 2. Two subcentimeter foci of increased diffusion-weighted signal within the periventricular right frontal lobe likely represent subacute lacunar infarcts. T2 shine through related to underlying chronic microvascular ischemic disease could appear similarly. 3. Unremarkable MRA. ACT 112: Negative or not required by law. The above report was generated using voice recognition software. It may contain grammatical, syntax or spelling errors. Electronically signed by: Zachery Kahn M.D. 03/26/2023 11:23 AM Thyroid Ultrasound 03/26/23 12:45 US thyroid CLINICAL HISTORY: 57 years-old Male with hyperparathyroidism- eval for parathyroid adenoma. COMPARISON: None TECHNIQUE: Multiple real time sonographic images of the thyroid were obtained accessing hernández scale appearance and color doppler flow. FINDINGS: MEASUREMENTS: Right lobe: 5.5 x 1.8 x 1.9 cm Left lobe: 4.9 x 1.3 x 1.7 cm Isthmus: 0.4 cm PARENCHYMA: The thyroid parenchymal echotexture is predominantly homogeneous. NODULES: No suspicious nodules are identified. 5 mm hypoechoic nodule in the mid right thyroid suggestive of a colloid cyst. IMPRESSION: No suspicious thyroid nodules identified. ACT 112: Negative or not required by law. The above report was generated using voice recognition software. It may contain grammatical, syntax or spelling errors. Electronically signed by: Zachery Kahn M.D. 03/26/2023 2:38 PM
--- NOTE | 2023-03-26 15:37 | Hospitalist Progress Note ---
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 Also had episode of coffee ground emesis x2 after multiple vomiting episodes. MRI/MRA brain 1. No acute intracranial hemorrhage, midline shift or acute territorial infarct. 2. Two subcentimeter foci of increased diffusion-weighted signal within the periventricular right frontal lobe likely represent subacute lacunar infarcts. T2 shine through related to underlying chronic microvascular ischemic disease could appear similarly. 3. Unremarkable MRA. Carotid doppler 1. No hemodynamically significant stenosis or significant atherosclerotic plaquing. 2. Normal antegrade vertebral flow bilaterally. Echo- EF 55-60%, no thrombus, no ASD or PFO but presence of extracardiac shunt such as pulmonary AV malformation or HPS. US thyroid- No suspicious thyroid nodules identified. CT A/P: Mild thickening of the distal esophagus. Could represent esophagitis. Euglycemic DKA in setting of Jardiance for DM-2: Improving. A1c 7.9, BG 217, AG 29->18->16, CO2 12->13 - Will discontinue Jardiance and recommend against other SGLT2 inhibitor - Hold metformin for at least [address] - Continue SSI inhouse, OP follow up with PCP for further DM management Primary hyperparathyroidism with hypercalcemia- PTH 169, Calcium 11->10.4->8.7 , US thyroid reviewed. Needs OP follow up with ENT/endo for OP NM parathyroid scan and definitive management accordingly. Discussed with patient in detail. Subacute lacunar infarct- seen on MRI. Imaging, echo and tele reviewed. Seen by neuro. Recommendations noted as below - ASA 81 mg daily, lipitor 40 mg daily - OP Holter/zio patch - Neuro follow up in 6-8 wks Coffee ground emesis- possibly esophagitis or irritation from multiple episodes of vomiting vs Renetta Terry tear. CT with esophagitis. Hb stable at 14. GI following- continue PPI, OP GI follow up for colonoscopy/EGD unless bleeding becomes an issue inhouse. Leucocytosis- ?reactive in setting of #1. No fever or focal source of infection. WBC 21->18. Monitor. Follow up in am. Anxiety/mood disorder- continue wendy Grigsby's tumor- OP ENT follow up HTN- BP normal. Resume home losartan as indicated. DVT ppx- sc heparin Dispo- Anticipate discharge in 1-2 days. Admission and Anticipated Discharge Date Admission Date: March 26, 2023 Subjective Patient was seen and examined at bedside. He is feeling better since admission. No fever, chills, chest pain, SOB, N/V. Tolerating clears without issues. No lightheadedness, dizziness. Review of Systems Review of Systems: All systems reviewed & are unremarkable except as noted in Subjective Physical Exam Physical Exam: General: Sitting comfortably in bed, not in distress, on room air HEENT: EOMI, VIRGIE, MMM Chest: Clear breath sounds bilaterally, no wheezes or crackles CVS: Regular rate and rhythm, normal heart sounds, no murmur Abdomen: Soft, non tender, not distended, normal bowel sounds Neuro: Awake, alert, oriented, conversing well, non focal Extremities: No cyanosis, clubbing or edema Results & Data Results & Data Vital Signs (Past 12 Hours) Vital Signs Temp Pulse Pulse Resp BP Pulse Ox O2 Del Method 03/26/23 11:18 36.8 C 92 H 18 121/78 98 Room Air 03/26/23 07:49 36.4 C L 87 18 113/68 98 Room Air 03/26/23 07:22 84 Laboratory Results Short CBC 03/25/23 03/26/23 03/26/23 Range/Units 19:26 00:30 07:11 WBC 21.16 H 18.62 H (4.8-10.8) K/ul Hgb 17.5 14.7 14.4 (14.0-18.0) g/dl Hct 48.2 41.8 L 40.4 L (42.0-52.0) % Plt Count 355 258 (130-400) K/uL 03/26/23 Range/Units 11:49 WBC (4.8-10.8) K/ul Hgb 16.2 (14.0-18.0) g/dl Hct 45.6 (42.0-52.0) % Plt Count (130-400) K/uL BMP 03/25/23 03/26/23 03/26/23 19:26 00:30 07:11 Sodium 137 137 136 Potassium 3.8 4.1 4.1 Chloride 96 L 107 107 Carbon Dioxide 12 L 12 L 13 L BUN 30 H 23 20 Creatinine 1.33 1.02 D 0.82 Glucose 200 H 125 H 105 H Calcium 10.4 H 8.2 L D 8.7 Liver Function 03/25/23 Range/Units 19:26 Total Bilirubin 0.8 (0.2-1.0) mg/dl AST 24 (13-39) U/L ALT 21 (7-52) U/L Alkaline Phosphatase 81 (34-104) U/L Albumin 5.2 H (3.4-5.0) gm/dl Urine 03/25/23 Range/Units 19:27 Urine Color Yellow Urine Appearance Clear (Clear) Urine pH 5.0 (4.5-7.5) Ur Specific [place] 1.027 (1.000-1.030) Urine Protein 2+ H (Negative) Urine Glucose (UA) 3+ H (Negative) Diagnostic Findings Brain MRI 03/26/23 02:32 MR brain wo con, MR angio head wo con HISTORY: 57 years-old Male tia acute stroke like symptoms COMPARISON: Head CT 03/25/2023 TECHNIQUE: Multiplanar multisequence MRI of the brain was obtained without the use of IV contrast. MRA of the head was obtained without use of IV contrast utilizing 3-D [id number]-[id number] or mass. All measurements were obtained according to NASCET criteria. FINDINGS: BRAIN MRI: No acute or subacute territorial infarct. There are 2 subcentimeter foci measuring up to 5 mm within the periventricular right frontal lobe on image 15 series 5 which demonstrate intermediate signal on ADC map and increased T2/FLAIR signal. No acute intracranial hemorrhage, midline shift, abnormal extra-axial collection, hydrocephalus or intracranial mass. No pathologic thinning artifact on the T2*series. Ddnk-yi-ppkesznb scattered T2/FLAIR hyperintense foci throughout the white matter. Midline structures appear unremarkable. Cerebral venous sinuses and major arterial flow voids appear patent. Skull, orbits and soft tissues are unremarkable. Mastoid air cells and paranasal sinuses are clear. MRA: No aneurysm, dissection, high-grade stenosis or arterial occlusion identified. IMPRESSION: 1. No acute intracranial hemorrhage, midline shift or acute territorial infarct. 2. Two subcentimeter foci of increased diffusion-weighted signal within the periventricular right frontal lobe likely represent subacute lacunar infarcts. T2 shine through related to underlying chronic microvascular ischemic disease could appear similarly. 3. Unremarkable MRA. ACT 112: Negative or not required by law. The above report was generated using voice recognition software. It may contain grammatical, syntax or spelling errors. Electronically signed by: Zachery Kahn M.D. 03/26/2023 11:23 AM Carotid Doppler Study 03/26/23 02:32 US carotid doppler BI CLINICAL HISTORY: 57 years-old Male with tia. Acute stroke like symptoms COMPARISON: None TECHNIQUE: Multiple real time sonographic images of the carotid bifurcations were obtained assessing hernández scale, color Doppler and spectral wave form appearance FINDINGS: RIGHT CAROTID: The peak systolic velocity measured within the right ICA is 99.5 cm/sec. The end diastolic velocity measured 8.5 cm/sec. The ICA to CCA ratio measured 0.9 which correlates with a stenosis of 0-50%. Mild atherosclerotic plaque of the right carotid bulb and proximal right ICA. LEFT CAROTID: The peak systolic velocity measurement of the left ICA is 96.6 cm/sec. The end diastolic velocity measured 14.4 cm/sec. The ICA to CCA ratio measured 1.0 which correlates with a stenosis of 0-50%. Mild atherosclerotic plaque of the left carotid bulb and proximal left ICA. There is normal antegrade vertebral flow bilaterally. IMPRESSION: 1. No hemodynamically significant stenosis or significant atherosclerotic plaquing. 2. Normal antegrade vertebral flow bilaterally. ACT 112: Negative or not required by law. The above report was generated using voice recognition software. It may contain grammatical, syntax or spelling errors. Electronically signed by: Zachery Kahn M.D. 03/26/2023 8:10 AM Head MRA 03/26/23 02:32 MR brain wo con, MR angio head wo con HISTORY: 57 years-old Male tia acute stroke like symptoms COMPARISON: Head CT 03/25/2023 TECHNIQUE: Multiplanar multisequence MRI of the brain was obtained without the use of IV contrast. MRA of the head was obtained without use of IV contrast utilizing 3-D xgna-he-zpkmis or mass. All measurements were obtained according to NASCET criteria. FINDINGS: BRAIN MRI: No acute or subacute territorial infarct. There are 2 subcentimeter foci measuring up to 5 mm within the periventricular right frontal lobe on image 15 series 5 which demonstrate intermediate signal on ADC map and increased T2/FLAIR signal. No acute intracranial hemorrhage, midline shift, abnormal extra-axial collection, hydrocephalus or intracranial mass. No pathologic thinning artifact on the T2*series. Loep-nk-[id number] scattered T2/FLAIR hyperintense foci throughout the white matter. Midline structures appear unremarkable. Cerebral venous sinuses and major arterial flow voids appear patent. Skull, orbits and soft tissues are unremarkable. Mastoid air cells and paranasal sinuses are clear. MRA: No aneurysm, dissection, high-grade stenosis or arterial occlusion identified. IMPRESSION: 1. No acute intracranial hemorrhage, midline shift or acute territorial infarct. 2. Two subcentimeter foci of increased diffusion-weighted signal within the periventricular right frontal lobe likely represent subacute lacunar infarcts. T2 shine through related to underlying chronic microvascular ischemic disease could appear similarly. 3. Unremarkable MRA. ACT 112: Negative or not required by law. The above report was generated using voice recognition software. It may contain grammatical, syntax or spelling errors. Electronically signed by: Zachery Kahn M.D. 03/26/2023 11:23 AM Thyroid Ultrasound 03/26/23 12:45 US thyroid CLINICAL HISTORY: 57 years-old Male with hyperparathyroidism- eval for parathyroid adenoma. COMPARISON: None TECHNIQUE: Multiple real time sonographic images of the thyroid were obtained accessing hernández scale appearance and color doppler flow. FINDINGS: MEASUREMENTS: Right lobe: 5.5 x 1.8 x 1.9 cm Left lobe: 4.9 x 1.3 x 1.7 cm Isthmus: 0.4 cm PARENCHYMA: The thyroid parenchymal echotexture is predominantly homogeneous. NODULES: No suspicious nodules are identified. 5 mm hypoechoic nodule in the mid right thyroid suggestive of a colloid cyst. IMPRESSION: No suspicious thyroid nodules identified. ACT 112: Negative or not required by law. The above report was generated using voice recognition software. It may contain grammatical, syntax or spelling errors. Electronically signed by: Zachery Kahn M.D. 03/26/2023 2:38 PM
--- NOTE | 2023-03-26 15:55 | Electrocardiogram Report ---
Test Reason : Blood Pressure : / mmHG Vent. Rate : 093 BPM Atrial Rate : 093 BPM P-R Int : 168 ms QRS Dur : 090 ms QT Int : 370 ms P-R-T Axes : 065 -10 057 degrees QTc Int : 461 ms Normal sinus rhythm Nonspecific ST and T wave abnormality Abnormal ECG When compared with ECG of 24-MAR-2023 09:08, Nonspecific T wave abnormality, worse in Anterolateral leads Confirmed by Garcia Boo ([id number]) on 03/26/2023 3:55:06 PM Referred By: REFERRED SELF Confirmed By:Fabian Boo
[2023-03-26] MEDS: HEPARIN SOD 5,000 UNIT/0.5 ML VIAL SQ SCH (19:28)
[2023-03-26] MEDS: LACTATED RINGER'S 1,000 ML IV SCH (19:33)
[2023-03-27] MEDS: LACTATED RINGER'S 1,000 ML IV SCH (06:34)
[2023-03-27 07:14] LABS: Basophils # (auto) 0.06 K/uL (0-0.2); Basophils % (auto) 0.6 %; Eosinophils # (auto) 0.04 K/uL (0-0.50); Eosinophils % (auto) 0.4 %; Hematocrit (blood only) 44.2 % (42.0-52.0); Hemoglobin 15.8 g/dl (14.0-18.0); Immature Granulocytes # (auto) 0.24 K/uL (0.01-0.20); Immature Granulocytes % (auto) 2.2 %; Lymphocytes # (auto) 2.01 K/uL (1.2-3.4); Lymphocytes % (auto) 18.8 %; Mean Corpuscular Hemoglobin 32.8 pg (25.0-34.0); Mean Corpuscular Hgb Conc 35.7 g/dL (32.0-36.0); Mean Corpuscular Volume 91.9 fL (80.0-100.0); Mean Platelet Volume 7.8 fL (9.4-12.4); Monocytes # (auto) 0.74 K/uL (0.11-0.59); Monocytes % (auto) 6.9 %; Neutrophils # (auto) 7.59 K/uL (1.40-6.50); Neutrophils % (auto) 71.1 %; Platelet Count 275 K/uL (130-400); RDW Coefficient of Variation 12.2 % (11.5-14.5); RDW Standard Deviation 41.5 fL (36.4-46.3); Red Blood Count 4.81 M/uL (4.70-6.10); White Blood Count 10.68 K/ul (4.8-10.8)
[2023-03-27 07:55] LABS: BUN Creatinine Ratio 19.3 (10-20); Calcium 9.1 mg/dl (8.6-10.3); Creatinine Clr Calc Pharmacy 86.8 ml/min; Est GFR (African American) 112.1 ml/min; Est GFR (Non-African American) 96.7 ml/min; Magnesium 2.3 mg/dl (1.7-2.4); Phosphorus 1.5 mg/dl (2.5-4.9); Potassium 3.8 mmol/L (3.5-5.1)
[2023-03-27] MEDS ORDERED: POTASSIUM PHOS 3 MMOL/1 ML INFUSION IV STA ×2 (07:59→19:16)
[2023-03-27] MEDS ORDERED: POTASSIUM CHLORIDE CRTAB 20 MEQ TABCR PO STA (08:04)
[2023-03-27] MEDS: ACETAMINOPHEN 325 MG TAB PO PRN (08:22)
[2023-03-27] MEDS: INSULIN ASPART PER UNIT CHARGE SC SCH ×4 (08:23→21:03)
[2023-03-27] MEDS: DOCUSATE SODIUM/SENNA 50/8.6MG TAB PO SCH (08:24)
[2023-03-27] MEDS: HEPARIN SOD 5,000 UNIT/0.5 ML VIAL SQ SCH ×2 (08:24→21:16)
[2023-03-27] MEDS: ATORVASTATIN 40 MG TAB PO SCH (08:24)
[2023-03-27] MEDS: PARoxetine HCL 20 MG TAB PO SCH (08:25)
[2023-03-27] MEDS: ASPIRIN 81 MG ECTAB PO SCH (08:25)
[2023-03-27] MEDS: NICOTINE 21 MG/24 HR TDSY TD SCH (08:25)
[2023-03-27] MEDS: PANTOprazole 40 MG in SYRINGE 0 ML IV SCH ×2 (08:26→21:16)
[2023-03-27] MEDS ORDERED: POTASSIUM PHOSPHATE 24 MMOL in SODIUM CHLORIDE 0.9% 500 ML IV ONE (08:30)
[2023-03-27] MEDS ORDERED: D5W AND 1/2NSS 1,000 ML IV SCH (08:45)
[2023-03-27] MEDS ORDERED: PHARMACY GLYCEMIC MGMT CONSULT PRN (08:52)
[2023-03-27] MEDS: LANTUS PER UNIT CHARGE SQ SCH ×2 (09:13→21:15)
--- NOTE | 2023-03-27 10:11 | Gastroenterology Progress Note ---
Date of Service March 27, 2023 Assessment & Plan (1) Nausea & vomiting: Plan: I think his vomiting was related to his hypertensive crisis and/or whatever acute was going on in his brain. He probably vomited hard and had some irritation. His blood count has remained normal so I do not plan EGD. He tells me he needs to have a colonoscopy done so he will arrange as an outpatient. If he is having any UGI symptoms at that time he can have an EGD. I would advance his diet. Admission and Anticipated Discharge Date Admission Date: March 26, 2023 Subjective Feels pretty well. Tolerating liquid diet. No further nausea, vomiting or hematemesis. H/H are normal Physical Exam Physical Exam: He looks well Results & Data Vital Signs (Past 12 Hours) Vital Signs Temp Pulse Pulse Resp BP Pulse Ox O2 Del Method 03/27/23 07:44 92 H 03/27/23 03:13 36.6 C 88 18 136/67 96 Room Air 03/27/23 00:08 36.4 C L 79 18 137/75 99 Room Air Laboratory Results 03/27/23 03/27/23 03/27/23 Range/Units 07:54 06:21 06:21 WBC (4.8-10.8) K/ul RBC (4.70-6.10) M/uL Hgb (14.0-18.0) g/dl Hct (42.0-52.0) % MCV (80.0-100.0) fL MCH (25.0-34.0) pg MCHC (32.0-36.0) g/dL RDW Std Deviation (36.4-46.3) fL RDW Coeff of Asad (11.5-14.5) % Plt Count (130-400) K/uL MPV (9.4-12.4) fL Immature Gran % (Auto) % Neut % (Auto) % Lymph % (Auto) % [place] % (Auto) % Eos % (Auto) % Baso % (Auto) % Neut # (Auto) (1.40-6.50) K/uL Lymph # (Auto) (1.2-3.4) K/uL [place] # (Auto) (0.11-0.59) K/uL Eos # (Auto) (0-0.50) K/uL Baso # (Auto) (0-0.2) K/uL Immature Gran # (Auto) (0.01-0.20) K/uL Sodium (136-145) mmol/L Potassium (3.5-5.1) mmol/L Chloride (98-107) mmol/L Carbon Dioxide (21-32) mmol/L Anion Gap (3-11) BUN (6-23) mg/dl Creatinine (0.6-1.4) mg/dl Est Cr Clr Drug Dosing ml/min Est GFR ( Amer) ml/min Est GFR (Non-Af Amer) ml/min BUN/Creatinine Ratio (10-20) Glucose (70-99(Fasting)) mg/dl POC Glucose 138 H (70-99) mg/dl Calcium (8.6-10.3) mg/dl Phosphorus (2.5-4.9) mg/dl Magnesium (1.7-2.4) mg/dl Procalcitonin 0.12 (0-0.5) ng/ml PTH Intact 48.9 (12.0-88.0) pg/ml 03/27/23 03/27/23 03/27/23 Range/Units 06:21 06:21 05:38 WBC 10.68 (4.8-10.8) K/ul RBC 4.81 (4.70-6.10) M/uL Hgb 15.8 (14.0-18.0) g/dl Hct 44.2 (42.0-52.0) % MCV 91.9 (80.0-100.0) fL MCH 32.8 (25.0-34.0) pg MCHC 35.7 (32.0-36.0) g/dL RDW Std Deviation 41.5 (36.4-46.3) fL RDW Coeff of Asad 12.2 (11.5-14.5) % Plt Count 275 (130-400) K/uL MPV 7.8 L (9.4-12.4) fL Immature Gran % (Auto) 2.2 % Neut % (Auto) 71.1 % Lymph % (Auto) 18.8 % [place] % (Auto) 6.9 % Eos % (Auto) 0.4 % Baso % (Auto) 0.6 % Neut # (Auto) 7.59 H (1.40-6.50) K/uL Lymph # (Auto) 2.01 (1.2-3.4) K/uL [place] # (Auto) 0.74 H (0.11-0.59) K/uL Eos # (Auto) 0.04 (0-0.50) K/uL Baso # (Auto) 0.06 (0-0.2) K/uL Immature Gran # (Auto) 0.24 H (0.01-0.20) K/uL Sodium 137 (136-145) mmol/L Potassium 3.8 (3.5-5.1) mmol/L Chloride 105 (98-107) mmol/L Carbon Dioxide 14 L (21-32) mmol/L Anion Gap 18 H (3-11) BUN 17 (6-23) mg/dl Creatinine 0.88 (0.6-1.4) mg/dl Est Cr Clr Drug Dosing 86.8 ml/min Est GFR ( Amer) 112.1 ml/min Est GFR (Non-Af Amer) 96.7 ml/min BUN/Creatinine Ratio 19.3 (10-20) Glucose 109 H (70-99(Fasting)) mg/dl POC Glucose 105 H (70-99) mg/dl Calcium 9.1 (8.6-10.3) mg/dl Phosphorus 1.5 L* D (2.5-4.9) mg/dl Magnesium 2.3 (1.7-2.4) mg/dl Procalcitonin (0-0.5) ng/ml PTH Intact (12.0-88.0) pg/ml 03/26/23 03/26/23 03/26/23 Range/Units 20:16 16:45 12:01 WBC (4.8-10.8) K/ul RBC (4.70-6.10) M/uL Hgb (14.0-18.0) g/dl Hct (42.0-52.0) % MCV (80.0-100.0) fL MCH (25.0-34.0) pg MCHC (32.0-36.0) g/dL RDW Std Deviation (36.4-46.3) fL RDW Coeff of Asad (11.5-14.5) % Plt Count (130-400) K/uL MPV (9.4-12.4) fL Immature Gran % (Auto) % Neut % (Auto) % Lymph % (Auto) % [place] % (Auto) % Eos % (Auto) % Baso % (Auto) % Neut # (Auto) (1.40-6.50) K/uL Lymph # (Auto) (1.2-3.4) K/uL [place] # (Auto) (0.11-0.59) K/uL Eos # (Auto) (0-0.50) K/uL Baso # (Auto) (0-0.2) K/uL Immature Gran # (Auto) (0.01-0.20) K/uL Sodium (136-145) mmol/L Potassium (3.5-5.1) mmol/L Chloride (98-107) mmol/L Carbon Dioxide (21-32) mmol/L Anion Gap (3-11) BUN (6-23) mg/dl Creatinine (0.6-1.4) mg/dl Est Cr Clr Drug Dosing ml/min Est GFR ( Amer) ml/min Est GFR (Non-Af Amer) ml/min BUN/Creatinine Ratio (10-20) Glucose (70-99(Fasting)) mg/dl POC Glucose 94 116 H 103 H (70-99) mg/dl Calcium (8.6-10.3) mg/dl Phosphorus (2.5-4.9) mg/dl Magnesium (1.7-2.4) mg/dl Procalcitonin (0-0.5) ng/ml PTH Intact (12.0-88.0) pg/ml 03/26/23 Range/Units 11:49 WBC (4.8-10.8) K/ul RBC (4.70-6.10) M/uL Hgb 16.2 (14.0-18.0) g/dl Hct 45.6 (42.0-52.0) % MCV (80.0-100.0) fL MCH (25.0-34.0) pg MCHC (32.0-36.0) g/dL RDW Std Deviation (36.4-46.3) fL RDW Coeff of Asad (11.5-14.5) % Plt Count (130-400) K/uL MPV (9.4-12.4) fL Immature Gran % (Auto) % Neut % (Auto) % Lymph % (Auto) % [place] % (Auto) % Eos % (Auto) % Baso % (Auto) % Neut # (Auto) (1.40-6.50) K/uL Lymph # (Auto) (1.2-3.4) K/uL [place] # (Auto) (0.11-0.59) K/uL Eos # (Auto) (0-0.50) K/uL Baso # (Auto) (0-0.2) K/uL Immature Gran # (Auto) (0.01-0.20) K/uL Sodium (136-145) mmol/L Potassium (3.5-5.1) mmol/L Chloride (98-107) mmol/L Carbon Dioxide (21-32) mmol/L Anion Gap (3-11) BUN (6-23) mg/dl Creatinine (0.6-1.4) mg/dl Est Cr Clr Drug Dosing ml/min Est GFR ( Amer) ml/min Est GFR (Non-Af Amer) ml/min BUN/Creatinine Ratio (10-20) Glucose (70-99(Fasting)) mg/dl POC Glucose (70-99) mg/dl Calcium (8.6-10.3) mg/dl Phosphorus (2.5-4.9) mg/dl Magnesium (1.7-2.4) mg/dl Procalcitonin (0-0.5) ng/ml PTH Intact (12.0-88.0) pg/ml
--- NOTE | 2023-03-27 11:46 | Hospitalist Progress Note ---
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 Also had episode of coffee ground emesis x2 after multiple vomiting episodes. MRI/MRA brain 1. No acute intracranial hemorrhage, midline shift or acute territorial infarct. 2. Two subcentimeter foci of increased diffusion-weighted signal within the periventricular right frontal lobe likely represent subacute lacunar infarcts. T2 shine through related to underlying chronic microvascular ischemic disease could appear similarly. 3. Unremarkable MRA. Carotid doppler 1. No hemodynamically significant stenosis or significant atherosclerotic p laquing. 2. Normal antegrade vertebral flow bilaterally. Echo- EF 55-60%, no thrombus, no ASD or PFO but presence of extracardiac shunt such as pulmonary AV malformation or HPS. US thyroid- No suspicious thyroid nodules identified. CT A/P: Mild thickening of the distal esophagus. Could represent esophagitis. Euglycemic DKA in setting of Jardiance for DM-2: Improving. A1c 7.9, BG 217, AG 29->18->16->18->12, CO2 12->13->14->14. Ketonuria 4+. PH 7.26 on VBG - Will discontinue Jardiance and recommend against other SGLT2 inhibitor - Hold metformin for at least [address] - Patient apparently did not get lantus last night which was ordered causing elevated AG this morning. Started on D5NS, lantus and prandial insulin and metabolic abnormalities seem to be improving now in repeat labs. Will repeat again later tonight. If AG worsens, will need to transfer to PCU for insulin drip. I spoke to the glycemic pharmacist. - Needs OP follow up with PCP for further DM management Hypercalcemia- resolved. likely from dehydration rather than parathyroidism. His PTH was likely erroneously elevated on admission and is now normal. PTH 169->48, Calcium 11->10.4->8.7->9, US thyroid reviewed. Hypophosphatemia- repleted. recheck later today Subacute lacunar infarct- seen on MRI. Imaging, echo and tele reviewed. Seen by neuro. Recommendations noted as below - ASA 81 mg daily, lipitor 40 mg daily - OP Holter/zio patch - Neuro follow up in 6-8 wks Coffee ground emesis- resolved. possibly esophagitis or irritation from multiple episodes of vomiting vs Renetta Terry tear. CT with esophagitis. Hb stable at 14. GI following- continue PPI, OP GI follow up for colonoscopy/EGD unless bleeding becomes an issue inhouse. Leucocytosis- resolved. likely reactive in setting of #1. No fever or focal source of infection. WBC 21->18->10. No indication for antibiotics Anxiety/mood disorder- continue paxil Warthin's tumor- OP ENT follow up HTN- BP normal. Resume home losartan as indicated. Nicotine dependence- Quit smoking in Nov but on nicoderm patch 21 for over a month now. Will titrate down to 14. Patient agreeable. Has nicotine gums at bedside for use as needed but he has not used any so far. DVT ppx- sc heparin Dispo- Continue current level of care pending resolution of DKA. Admission and Anticipated Discharge Date Admission Date: March 26, 2023 Subjective Patient was seen and examined at bedside. He is feeling better. He is tolerating full liquid diet. No fever, chills, chest pain, shortness of breath, nausea or vomiting. He worked with physical therapy. Review of Systems Review of Systems: All systems reviewed & are unremarkable except as noted in Subjective Physical Exam 2 Physical Exam: General: Sitting comfortably in bed, not in distress, on room air HEENT: EOMI, VIRGIE, MMM Chest: Clear breath sounds bilaterally, no wheezes or crackles CVS: Regular rate and rhythm, normal heart sounds, no murmur Abdomen: Soft, non tender, not distended, normal bowel sounds Neuro: Awake, alert, oriented, conversing well, non focal Extremities: No cyanosis, clubbing or edema Results & Data Results & Data Vital Signs (Past 12 Hours) Vital Signs Temp Pulse Pulse Resp BP Pulse Ox O2 Del Method 03/27/23 11:44 36.8 C 85 18 143/82 H 98 Room Air 03/27/23 07:44 92 H 06/04/23 03:13 36.6 C 88 18 136/67 96 Room Air 03/27/23 00:08 36.4 C L 79 18 137/75 99 Room Air Laboratory Results Short CBC 03/27/23 Range/Units 06:21 WBC 10.68 (4.8-10.8) K/ul Hgb 15.8 (14.0-18.0) g/dl Hct 44.2 (42.0-52.0) % Plt Count 275 (130-400) K/uL BMP 03/27/23 03/27/23 06:21 11:42 Sodium 137 132 L Potassium 3.8 4.4 Chloride 105 106 Carbon Dioxide 14 L 14 L BUN 17 16 Creatinine 0.88 0.79 Glucose 109 H 124 H Calcium 9.1 8.5 L Medications Administered Current Inpatient Medications Acetaminophen (Acetaminophen 325 Mg Tab) 650 mg PO Q4H PRN PRN Reason: Pain or Fever Stop: 04/25/23 02:31 Last Admin: 03/27/23 08:22 Dose: 650 mg Aspirin (Aspirin 81 Mg Ectab) 81 mg PO QAM [facility] Stop: 04/26/23 08:59 Last Admin: 03/27/23 08:25 Dose: 81 mg Atorvastatin Calcium (Atorvastatin 40 Mg Tab) 40 mg PO QAM [facility] Stop: 04/26/23 08:59 Last Admin: 03/27/23 08:24 Dose: 40 mg Dextrose (Dextrose 50% 50 Ml Syringe) 25 - 50 ml IV UD PRN; Protocol PRN Reason: Hypoglycemia Protocol Stop: 04/25/23 02:31 Glucagon (Glucagon For Inj 1 Mg Vial) 1 mg SQ UD PRN; Protocol PRN Reason: Hypoglycemia Protocol Stop: 04/25/23 02:31 Glucose (Glucose 10 Tab/Tube) 4 - 8 tab PO UD PRN; Protocol PRN Reason: Hypoglycemia Treatment Stop: 04/25/23 02:31 Glucose (Glucose 40% Gel 15 Gm Tube) 15 - 30 gm PO UD PRN; Protocol PRN Reason: Hypoglycemia Protocol Stop: 04/25/23 02:31 Heparin Sodium (Porcine) (Heparin Sod 5,000 Unit/0.5 Ml Vial) 5,000 units SQ Q12 [facility] Stop: 04/25/23 20:59 Last Admin: 03/27/23 08:24 Dose: 5,000 units Promethazine HCl 6.25 mg/ (Sodium Chloride) 50.25 mls @ 201 mls/hr IV Q6H PRN PRN Reason: Nausea And Vomiting Stop: 04/24/23 22:49 Pantoprazole Sodium 40 mg/ (Syringe) 10 mls @ 5 mls/min IV BID [facility] Stop: 04/25/23 08:59 Last Admin: 03/27/23 08:26 Dose: 5 mls/min Dextrose/Sodium Chloride (D5w And 1/2nss) 1,000 mls @ 50 mls/hr IV .Q20H [facility] Stop: 04/26/23 08:44 Last Admin: 03/27/23 09:09 Dose: 50 mls/hr Insulin Aspart (Insulin Aspart Per Unit Charge) 0 units SC ACHS [facility] Stop: 04/25/23 11:29 Last Admin: 03/27/23 12:07 Dose: 2 units Insulin Glargine (Lantus Per Unit Charge) 5 units SQ BID [facility] Stop: 04/26/23 08:59 Last Admin: 03/27/23 09:13 Dose: 5 units Lorazepam (Lorazepam 0.5 Mg Tab) 0.5 mg PO TID PRN PRN Reason: Anxiety Stop: 04/24/23 22:49 Miscellaneous (Remove Nicoderm Patch) 1 each N/A DAILY@0859 [facility] Stop: 04/25/23 08:58 Last Admin: 03/27/23 08:24 Dose: 1 each Miscellaneous (Carbohydrates For Hypoglycemia ) 15 - 30 gm PO UD PRN PRN Reason: Hypoglycemia Protocol Stop: 04/25/23 02:31 Miscellaneous Information (Pharmacy Glycemic Mgmt Consult) 1 each N/A UD PRN; Protocol PRN Reason: Consult Stop: 04/26/23 08:51 Morphine Sulfate (Morphine Sulfate 2 Mg/Ml Carp) 2 mg IV Q3H PRN PRN Reason: Pain Stop: 04/09/23 02:17 Nicotine (Nicotine 21 Mg/24 Hr Tdsy) 21 mg TD QAM [facility] Stop: 04/25/23 08:59 Last Admin: 03/27/23 08:25 Dose: 21 mg Oxycodone HCl (Oxycodone Hcl Ir 5 Mg Tab (Immediate Release)) 5 mg PO Q4H PRN PRN Reason: Pain Stop: 04/08/23 22:50 Paroxetine HCl (Paroxetine Hcl 20 Mg Tab) 30 mg PO QAM [facility] Stop: 04/25/23 08:59 Last Admin: 03/27/23 08:25 Dose: 30 mg Polyethylene Glycol (Polyethylene (Miralax) 17 Gm Pack) 17 gm PO DAILY PRN PRN Reason: Constipation Stop: 04/25/23 02:31 Senna/Docusate Sodium (Docusate Sodium/Senna 50/8.6mg Tab) [facility] [place]: 04/25/23 08:59 Last Admin: 03/27/23 08:24 Dose: 1 tab
[2023-03-27 12:15] LABS: BUN Creatinine Ratio 20.3 (10-20); Calcium 8.5 mg/dl (8.6-10.3); Creatinine Clr Calc Pharmacy 96.7 ml/min; Est GFR (African American) 117.2 ml/min; Est GFR (Non-African American) 101.1 ml/min; Potassium 4.4 mmol/L (3.5-5.1)
--- NOTE | 2023-03-27 14:20 | Pharmacy Report ---
Pharmacy Glycemic Short Note 2 - Date of Service March 27, 2023 - Glycemic Short BSG Results (Last 24 hours): 03/26/23 03/26/23 03/27/23 16:45 20:16 05:38 Glucose POC Glucose 116 H 94 105 H 03/27/23 03/27/23 03/27/23 06:21 07:54 11:42 Glucose 109 H 124 H POC Glucose 138 H 03/27/23 11:49 Glucose POC Glucose 111 H OUTPATIENT ANTIDIABETIC REGIMEN: * Jardiance 25 mg PO daily * Metformin 1000 mg PO BID ASSESSMENT: * 57 y/o M admitted for stroke like symptoms and upper GI bleed. He has history of Type 2 diabetes managed at home on oral antidiabetic meds only. * Spoke to hospitalist today, patient with euglycemic DKA. BSGs at goal but Anion gap was 18 this AM and around noon it improved to 14. * Lantus 5 units SQ BID was started this AM. Apparently patient had refused the Lantus dose ordered yesterday at HS. * Novolog ordered with loose parameters. * To prevent hypoglycemia, patient has been started on Dextrose IV fluids. * If gap worsens, insulin drip should be started at a low rate of probably 2 units/hr. PLAN FOR INPATIENT GLYCEMIC CONTROL: * Hold outpatient oral diabetes medications * Basal insulin * Lantus 5 units SQ BID * Bolus insulin * NovoLog per scale ACHS or Q6hrs while NPO * Goal Range: Low 110 mg/dL - High [] mg/dL * Correction Factor: 25 mg/dL/unit * Nutritional / Prandial insulin per carb ratio of 1 unit per 15 grams CHO consumed
[2023-03-27 18:41] LABS: BUN Creatinine Ratio 16.3 (10-20); Calcium 8.7 mg/dl (8.6-10.3); Est GFR (African American) 108.1 ml/min; Est GFR (Non-African American) 93.3 ml/min; Potassium 4.3 mmol/L (3.5-5.1)
[2023-03-27] MEDS ORDERED: SODIUM CHLORIDE 0.9% 1000ML 1,000 ML IV ONE (19:15)
[2023-03-27] MEDS ORDERED: POTASSIUM PHOSPHATE 30 MMOL in SODIUM CHLORIDE 0.9% 500 ML IV ONE (19:30)
[2023-03-28 06:57] LABS: Hematocrit (blood only) 40.6 % (42.0-52.0); Hemoglobin 14.9 g/dl (14.0-18.0); Mean Corpuscular Hemoglobin 32.9 pg (25.0-34.0); Mean Corpuscular Hgb Conc 36.7 g/dL (32.0-36.0); Mean Corpuscular Volume 89.6 fL (80.0-100.0); Mean Platelet Volume 7.8 fL (9.4-12.4); Platelet Count 256 K/uL (130-400); RDW Standard Deviation 38.9 fL (36.4-46.3); Red Blood Count 4.53 M/uL (4.70-6.10); White Blood Count 10.14 K/ul (4.8-10.8)
[2023-03-28 07:19] LABS: Calcium 8.5 mg/dl (8.6-10.3); Creatinine Clr Calc Pharmacy 103.7 ml/min; Est GFR (African American) 120.4 ml/min; Est GFR (Non-African American) 103.8 ml/min; Magnesium 2.2 mg/dl (1.7-2.4)
[2023-03-28 07:31] LABS: Estimated Average Glucose 183 mg/dl
[2023-03-28] MEDS: INSULIN ASPART PER UNIT CHARGE SC SCH ×4 (07:57→20:37)
[2023-03-28] MEDS: DOCUSATE SODIUM/SENNA 50/8.6MG TAB PO SCH (07:59)
[2023-03-28] MEDS: ATORVASTATIN 40 MG TAB PO SCH (07:59)
[2023-03-28] MEDS: ASPIRIN 81 MG ECTAB PO SCH (07:59)
[2023-03-28] MEDS: HEPARIN SOD 5,000 UNIT/0.5 ML VIAL SQ SCH (07:59)
[2023-03-28] MEDS: PARoxetine HCL 20 MG TAB PO SCH (07:59)
[2023-03-28] MEDS: PANTOprazole 40 MG in SYRINGE 0 ML IV SCH (08:00)
[2023-03-28] MEDS: NICOTINE 14 MG/24 HR PATCH TD SCH (08:00)
[2023-03-28] MEDS: POT PHOSPHATE MONOBASIC W/ SOD TAB PO SCH ×4 (08:17→20:39)
--- NOTE | 2023-03-28 09:12 | Gastroenterology Progress Note ---
Supervising physicians note Discussed case and plan of care with Yaneth Harris NP and reviewed records. He is doing well. No intervention planned while in hospital. Needs outpatient GI follow up to schedule colonoscopy. Will discuss need for EGD at that time. Will sign off. Please reconsult if we can be of further assistance. Adalberto Daniel Jr, MD, [facility] [place] Date of Service March 28, 2023 Assessment & Plan (1) Nausea & vomiting: Plan: Nausea and vomiting: Patient has no voiced complaints this morning. States overall he is feeling well. He is overdue for colonoscopy and we will have him follow-up with the GI clinic as an outpatient and likely perform EGD at that time. Continue PPI. Case reviewed with Dr. Daniel. Please refer to supervising physician addendum for further recommendations. I have spent 15 minutes of discrete time performing the activities of this visit which include but are not limited to review of the medical record, obtaining a history, physical exam, and entering information in the electronic record. Admission and Anticipated Discharge Date Admission Date: March 26, 2023 Subjective The patient is awake alert and oriented lying in position of comfort on his bed. Reports he had a bland breakfast this morning but tolerated this well. He states overall he "is not ready to run a marathon". Otherwise denies any nausea, vomiting. Denies abdominal pain. No bowel movement so far this morning. Reports that he is disappointed that he has to be on PPI. He does report he needs outpatient colonoscopy and knows he needs GI follow-up at discharge. Review of Systems Review of Systems: All systems reviewed & are unremarkable except as noted in Subjective Physical Exam Gastrointestinal (Abdomen): normal bowel sounds, soft, nontender, no hep atosplenomegaly Results & Data Vital Signs (Past 12 Hours) Vital Signs Temp Pulse Pulse Resp BP Pulse Ox Pulse Ox 03/28/23 07:11 03/28/23 06:59 88 03/28/23 04:00 36.4 C L 81 18 151/83 H 97 03/28/23 00:59 96 03/27/23 23:10 36.8 C 79 18 128/75 97 03/27/23 22:02 79 03/27/23 22:46 O2 Del Method O2 Del Method 03/28/23 07:11 Room Air 03/28/23 06:59 03/28/23 04:00 Room Air 03/28/23 00:59 Room Air 03/27/23 23:10 Room Air 03/27/23 22:02 03/27/23 22:46 Room Air Laboratory Results Laboratory Results - last 24 hr 03/27/23 03/27/23 03/27/23 11:42 11:49 16:35 WBC RBC Hgb Hct MCV MCH MCHC RDW Std Deviation RDW Coeff of Asad Plt Count MPV Sodium 132 L Potassium 4.4 Chloride 106 Carbon Dioxide 14 L Anion Gap 12 H BUN 16 Creatinine 0.79 Est Cr Clr Drug Dosing 96.7 Est GFR ( Amer) 117.2 Est GFR (Non-Af Amer) 101.1 BUN/Creatinine Ratio 20.3 H Glucose 124 H POC Glucose 111 H 95 Fasting Glucose Estimat Average Glucose Hemoglobin A1c Calcium 8.5 L Phosphorus Magnesium 03/27/23 03/27/23 03/27/23 17:31 17:31 20:52 WBC RBC Hgb Hct MCV MCH MCHC RDW Std Deviation RDW Coeff of Asad Plt Count MPV Sodium 133 L Potassium 4.3 Chloride 105 Carbon Dioxide 17 L Anion Gap 11 BUN 15 Creatinine 0.92 Est Cr Clr Drug Dosing 83.0 Est GFR ( Amer) 108.1 Est GFR (Non-Af Amer) 93.3 BUN/Creatinine Ratio 16.3 Glucose 173 H POC Glucose 139 H Fasting Glucose Estimat Average Glucose Hemoglobin A1c Calcium 8.7 Phosphorus 1.6 L Magnesium 03/28/23 03/28/23 03/28/23 06:02 06:02 06:02 WBC 10.14 RBC 4.53 L Hgb 14.9 Hct 40.6 L MCV 89.6 MCH 32.9 MCHC 36.7 H RDW Std Deviation 38.9 RDW Coeff of Asad 12.0 Plt Count 256 MPV 7.8 L Sodium 137 Potassium 4.0 Chloride 108 H Carbon Dioxide 18 L Anion Gap 11 BUN 15 Creatinine 0.74 Est Cr Clr Drug Dosing 103.7 Est GFR ( Amer) 120.4 Est GFR (Non-Af Amer) 103.8 BUN/Creatinine Ratio Glucose POC Glucose Fasting Glucose 93 Estimat Average Glucose 183 Hemoglobin A1c 8.0 H Calcium 8.5 L Phosphorus 2.0 L Magnesium 2.2 03/28/23 07:40 WBC RBC Hgb Hct MCV MCH MCHC RDW Std Deviation RDW Coeff of Asad Plt Count MPV Sodium Potassium Chloride Carbon Dioxide Anion Gap BUN Creatinine Est Cr Clr Drug Dosing Est GFR ( Amer) Est GFR (Non-Af Amer) BUN/Creatinine Ratio Glucose POC Glucose 94 Fasting Glucose Estimat Average Glucose Hemoglobin A1c Calcium Phosphorus Magnesium
--- NOTE | 2023-03-28 11:00 | Hospitalist Progress Note ---
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 Also had episode of coffee ground emesis x2 after multiple vomiting episodes. MRI/MRA brain 1. No acute intracranial hemorrhage, midline shift or acute territorial infarct. 2. Two subcentimeter foci of increased diffusion-weighted signal within the periventricular right frontal lobe likely represent subacute lacunar infarcts. T2 shine through related to underlying chronic microvascular ischemic disease could appear similarly. 3. Unremarkable MRA. Carotid doppler 1. No hemodynamically significant stenosis or significant atherosclerotic p laquing. 2. Normal antegrade vertebral flow bilaterally. Echo- EF 55-60%, no thrombus, no ASD or PFO but presence of extracardiac shunt such as pulmonary AV malformation or HPS. US thyroid- No suspicious thyroid nodules identified. CT A/P: Mild thickening of the distal esophagus. Could represent esophagitis. Euglycemic DKA in setting of Jardiance for DM-2: Improving. A1c 7.9, BG 217, AG 29->18->16->18->12->11, CO2 12->13->14->14->18. Ketonuria 4+. PH 7.26 on VBG - DKA almost resolved with fluids and basal bolus insulin. Continue lantus and SSI but requiring very less insulin - Discontinued Jardiance and recommend against other SGLT2 inhibitor - Home metformin on hold - Glycemic pharmacist managing - community health educator eval - Needs OP follow up with PCP for further DM management Hypophosphatemia- improved. Supplementation started. recheck in am Hypercalcemia- resolved. likely from dehydration rather than parathyroidism. His PTH was likely erroneously elevated on admission and is now normal. PTH 169->48, Calcium 11->10.4->8.7->9, US thyroid reviewed. Subacute lacunar infarct- seen on MRI. Imaging, echo and tele reviewed. Seen by neuro. Recommendations noted as below - ASA 81 mg daily, lipitor 40 mg daily - OP Holter/zio patch - Neuro follow up in 6-8 wks Coffee ground emesis- resolved. possibly esophagitis or irritation from multiple episodes of vomiting vs Renetta Terry tear. CT with esophagitis. Hb stable at 14. GI following- continue PPI, OP GI follow up for colonoscopy/EGD unless bleeding becomes an issue inhouse. Leucocytosis- resolved. likely reactive in setting of #1. No fever or focal source of infection. WBC 21->18->10. No indication for antibiotics Anxiety/mood disorder- continue paxil Warthin's tumor- OP ENT follow up HTN- BP normal. Resume home losartan Nicotine dependence- Quit smoking in Nov but on nicoderm patch 21 for over a month now. Titrated down to 14. Patient agreeable. Has nicotine gums at bedside for use as needed but he has not used any so far. DVT ppx- sc lovenox Dispo- Likely discharge tomorrow if continues to remain stable without recurrence of DKA Admission and Anticipated Discharge Date Admission Date: March 26, 2023 Subjective Patient was seen and examined at bedside. He continues to feel better. Tolerating solid food without issues. No N/V/abd pain. No lightheadedness or dizziness. No CP/SOB. Review of Systems Review of Systems: All systems reviewed & are unremarkable except as noted in Subjective Physical Exam Physical Exam: General: Sitting comfortably in bed, not in distress, on room air HEENT: EOMI, VIRGIE, MMM Chest: Clear breath sounds bilaterally, no wheezes or crackles CVS: Regular rate and rhythm, normal heart sounds, no murmur Abdomen: Soft, non tender, not distended, normal bowel sounds Neuro: Awake, alert, oriented, conversing well, non focal Extremities: No cyanosis, clubbing or edema Results & Data Results & Data Vital Signs (Past 12 Hours) Vital Signs Temp Pulse Pulse Resp BP Pulse Ox Pulse Ox 03/28/23 07:11 03/28/23 06:59 88 03/28/23 04:00 36.4 C L 81 18 151/83 H 97 03/28/23 00:59 96 03/27/23 23:10 36.8 C 79 18 128/75 97 O2 Del Method O2 Del Method 03/28/23 07:11 Room Air 06/05/23 06:59 03/28/23 04:00 Room Air 03/28/23 00:59 Room Air 03/27/23 23:10 Room Air Laboratory Results Short CBC 03/28/23 Range/Units 06:02 WBC 10.14 (4.8-10.8) K/ul Hgb 14.9 (14.0-18.0) g/dl Hct 40.6 L (42.0-52.0) % Plt Count 256 (130-400) K/uL BMP 03/27/23 03/27/23 03/28/23 11:42 17:31 06:02 Sodium 132 L 133 L 137 Potassium 4.4 4.3 4.0 Chloride 106 105 108 H Carbon Dioxide 14 L 17 L 18 L BUN 16 15 15 Creatinine 0.79 0.92 0.74 Glucose 124 H 173 H Calcium 8.5 L 8.7 8.5 L Medications Administered Current Inpatient Medications Acetaminophen (Acetaminophen 325 Mg Tab) 650 mg PO Q4H PRN PRN Reason: Pain or Fever Stop: 04/25/23 02:31 Last Admin: 03/27/23 08:22 Dose: 650 mg Aspirin (Aspirin 81 Mg Ectab) 81 mg PO QAM [facility] Stop: 04/26/23 08:59 Last Admin: 03/28/23 07:59 Dose: 81 mg Atorvastatin Calcium (Atorvastatin 40 Mg Tab) 40 mg PO QAM [facility] Stop: 04/26/23 08:59 Last Admin: 03/28/23 07:59 Dose: 40 mg Dextrose (Dextrose 50% 50 Ml Syringe) 25 - 50 ml IV UD PRN; Protocol PRN Reason: Hypoglycemia Protocol Stop: 04/25/23 02:31 Glucagon (Glucagon For Inj 1 Mg Vial) 1 mg SQ UD PRN; Protocol PRN Reason: Hypoglycemia Protocol Stop: 04/25/23 02:31 Glucose (Glucose 10 Tab/Tube) 4 - 8 tab PO UD PRN; Protocol PRN Reason: Hypoglycemia Treatment Stop: 04/25/23 02:31 Glucose (Glucose 40% Gel 15 Gm Tube) 15 - 30 gm PO UD PRN; Protocol PRN Reason: Hypoglycemia Protocol Stop: 04/25/23 02:31 Heparin Sodium (Porcine) (Heparin Sod 5,000 Unit/0.5 Ml Vial) 5,000 units SQ Q12 [facility] Stop: 04/25/23 20:59 Last Admin: 03/28/23 07:59 Dose: 5,000 units Promethazine HCl 6.25 mg/ (Sodium Chloride) 50.25 mls @ 201 mls/hr IV Q6H PRN PRN Reason: Nausea And Vomiting Stop: 04/24/23 22:49 Pantoprazole Sodium 40 mg/ (Syringe) 10 mls @ 5 mls/min IV BID [facility] Stop: 04/25/23 08:59 Last Admin: 03/28/23 08:00 Dose: 5 mls/min Insulin Aspart (Insulin Aspart Per Unit Charge) 0 units SC ACHS [facility]; Protocol Stop: 04/25/23 11:29 Last Admin: 03/28/23 07:57 Dose: 1 units Insulin Glargine (Lantus Per Unit Charge) 5 units SQ HS [facility] Stop: 04/27/23 20:59 Lorazepam (Lorazepam 0.5 Mg Tab) 0.5 mg PO TID PRN PRN Reason: Anxiety Stop: 04/24/23 22:49 Miscellaneous (Carbohydrates For Hypoglycemia ) 15 - 30 gm PO UD PRN PRN Reason: Hypoglycemia Protocol Stop: 04/25/23 02:31 Miscellaneous (Remove Nicoderm Patch) 1 each N/A DAILY@0859 [facility] Stop: 04/27/23 08:58 Last Admin: 03/28/23 07:58 Dose: 1 each Miscellaneous Information (Pharmacy Glycemic Mgmt Consult) 1 each N/A UD PRN; Protocol PRN Reason: Consult Stop: 04/26/23 08:51 Morphine Sulfate (Morphine Sulfate 2 Mg/Ml Carp) 2 mg IV Q3H PRN PRN Reason: Pain Stop: 04/09/23 02:17 Nicotine (Nicotine 14 Mg/24 Hr Patch) 14 mg TD QAM [facility] Stop: 04/27/23 08:59 Last Admin: 03/28/23 08:00 Dose: 14 mg Oxycodone HCl (Oxycodone Hcl Ir 5 Mg Tab (Immediate Release)) 5 mg PO Q4H PRN PRN Reason: Pain Stop: 04/08/23 22:50 Paroxetine HCl (Paroxetine Hcl 20 Mg Tab) 30 mg PO QAM [facility] Stop: 04/25/23 08:59 Last Admin: 03/28/23 07:59 Dose: 30 mg Polyethylene Glycol (Polyethylene (Miralax) 17 Gm Pack) 17 gm PO DAILY PRN PRN Reason: Constipation Stop: 04/25/23 02:31 Potassium Phosphate (Pot Phosphate Monobasic W/ Sod Tab) 2 tab PO QID [facility] Stop: 04/28/23 08:59 Last Admin: 03/28/23 08:17 Dose: 2 tab Senna/Docusate Sodium (Docusate Sodium/Senna 50/8.6mg Tab) 1 tab PO QAM [facility] Stop: 04/25/23 08:59 Last Admin: 03/28/23 07:59 Dose: 1 tab
[2023-03-28] MEDS: PANTOprazole 40 MG TAB PO SCH (20:39)
[2023-03-28] MEDS ORDERED: LANTUS PER UNIT CHARGE SQ SCH (21:00)
[2023-03-28] MEDS ORDERED: ENOXAPARIN INJ 40 MG/0.4 ML SYR SQ SCH (21:00)
[2023-03-29 06:50] LABS: Calcium 8.9 mg/dl (8.6-10.3); Creatinine Clr Calc Pharmacy 107.1 ml/min; Est GFR (African American) 123.1 ml/min; Est GFR (Non-African American) 106.2 ml/min; Magnesium 2.1 mg/dl (1.7-2.4); Phosphorus 2.6 mg/dl (2.5-4.9); Potassium 3.7 mmol/L (3.5-5.1)
[2023-03-29] MEDS: INSULIN ASPART PER UNIT CHARGE SC SCH (08:08)
--- NOTE | 2023-03-29 08:39 | Discharge Summary ---
Date of Service March 29, 2023 Admission HPI Per Admitting Provider History obtained from patient and records. Medical history significant for hypertension, DM2 on oral medications, anxiety/mood disorder, Warthin's tumor, past tobacco/alcohol abuse. 4 days ago, patient noted dizziness symptoms sometimes spinning with some sensation of imbalance. Episodic frontal headache symptoms. Patient also noticed that his writing was weird. Writing some letter Bs as Ds. Transient symptoms. Patient later noted achy abdominal pain with usual constipation more pronounced followed by blood-tinged/coffee-ground emesis. Patient denies OTC NSAID intake. No fever, no chills. Patient denies chest pain. Shortness of breath attributed to anxiety. Patient directed to ER 2 days ago by PCP's office. Patient nausea/vomiting symptoms attributed to foodborne versus viral versus psychogenic causes. Patient discharged home. Patient returned to ER for worsening symptoms. SBP 200s upon arrival at the ER. 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 Admission Exam Per Admitting Provider GENERAL: Slightly uncomfortable, slightly anxious, pleasant, no respiratory distress SKIN: Normal color, warm HEENT: [place] palpebral conjunctivae, no ptosis, dry buccal mucosa NECK : Supple, no tenderness CHEST : CTA, no tenderness HEART : RRR, no obvious murmurs ABDOMEN: Some distention, epigastric tenderness EXTREMITIES : No LE swelling/tenderness, no other conspicuous deformities noted NEUROLOGIC : Coherent, no facial asymmetry, no other gross focality Principal Diagnosis Euglycemic DKA, subacute lacunar infarct Discharge Exam General: Sitting comfortably in bed, not in distress, on room air HEENT: EOMI, VIRGIE, MMM Chest: Clear breath sounds bilaterally, no wheezes or crackles CVS: Regular rate and rhythm, normal heart sounds, no murmur Abdomen: Soft, non tender, not distended, normal bowel sounds Neuro: Awake, alert, oriented, conversing well, non focal Extremities: No cyanosis, clubbing or edema Discharge Data Allergies Allergy/AdvReac Type Severity Reaction Status Date / Time No Known Allergies Allergy Unverified 03/25/23 22:44 Consultations 03/25/23 21:54 ED Decision to Admit Stat 03/26/23 00:16 Consult Gastroenterology Routine 03/26/23 02:32 Consult Gastroenterology Routine Consult Neurology Routine Ordered Studies 03/25/23 19:30 CT Abd and Pelvis [CT abd pelvis IV con only] Stat 03/25/23 22:49 CT head/brain wo con Stat 03/26/23 02:32 MR angio head wo con Urgent MR brain wo con Urgent US carotid doppler BI Routine 03/26/23 12:45 US thyroid Routine Laboratory Results WBC 10.14 K/ul (4.8-10.8) 03/28/23 06:02 RBC 4.53 M/uL (4.70-6.10) L 03/28/23 06:02 Hgb 14.9 g/dl (14.0-18.0) 03/28/23 06:02 Hct 40.6 % (42.0-52.0) L 03/28/23 06:02 MCV 89.6 fL (80.0-100.0) 03/28/23 06:02 MCH 32.9 pg (25.0-34.0) 03/28/23 06:02 MCHC 36.7 g/dL (32.0-36.0) H 03/28/23 06:02 RDW Std Deviation 38.9 fL (36.4-46.3) 03/28/23 06:02 RDW Coeff of Asad 12.0 % (11.5-14.5) 03/28/23 06:02 Plt Count 256 K/uL (130-400) 03/28/23 06:02 MPV 7.8 fL (9.4-12.4) L 03/28/23 06:02 Immature Gran % (Auto) 2.2 % 03/27/23 06:21 Neut % (Auto) 71.1 % 03/27/23 06:21 Lymph % (Auto) 18.8 % 03/27/23 06:21 [place] % (Auto) 6.9 % 03/27/23 06:21 Eos % (Auto) 0.4 % 03/27/23 06:21 Baso % (Auto) 0.6 % 03/27/23 06:21 Neut # (Auto) 7.59 K/uL (1.40-6.50) H 03/27/23 06:21 Lymph # (Auto) 2.01 K/uL (1.2-3.4) 03/27/23 06:21 [place] # (Auto) 0.74 K/uL (0.11-0.59) H 03/27/23 06:21 Eos # (Auto) 0.04 K/uL (0-0.50) 03/27/23 06:21 Baso # (Auto) 0.06 K/uL (0-0.2) 03/27/23 06:21 Immature Gran # (Auto) 0.24 K/uL (0.01-0.20) H 03/27/23 06:21 VBG pH 7.26 (7.36-7.41) L 03/26/23 00:30 VBG pCO2 29 mmHg (38-50) L 03/26/23 00:30 VBG pO2 51 mmHg 03/26/23 00:30 VBG HCO3 13 mmol/L 03/26/23 00:30 VBG O2 Saturation 79.9 % 03/26/23 00:30 VBG Base Excess -12.6 mEq/L 03/26/23 00:30 Sodium 137 mmol/L (136-145) 03/29/23 06:11 Potassium 3.7 mmol/L (3.5-5.1) 03/29/23 06:11 Chloride 104 mmol/L (98-107) 03/29/23 06:11 Carbon Dioxide 22 mmol/L (21-32) 03/29/23 06:11 Anion Gap 11 (3-11) 03/29/23 06:11 BUN 21 mg/dl (6-23) 03/29/23 06:11 Creatinine 0.70 mg/dl (0.6-1.4) 03/29/23 06:11 Est Cr Clr Drug Dosing 107.1 ml/min 03/29/23 06:11 Est GFR ( Amer) 123.1 ml/min 03/29/23 06:11 Est GFR (Non-Af Amer) 106.2 ml/min 03/29/23 06:11 BUN/Creatinine Ratio 30.0 (10-20) H 03/29/23 06:11 Glucose 146 mg/dl (70-99(Fasting)) H 03/29/23 06:11 POC Glucose 132 mg/dl (70-99) H 03/29/23 07:44 Fasting Glucose 93 mg/dl (70-99) 03/28/23 06:02 Estimat Average Glucose 183 mg/dl 03/28/23 06:02 Hemoglobin A1c 8.0 % (4.5-5.6) H 03/28/23 06:02 Calcium 8.9 mg/dl (8.6-10.3) 03/29/23 06:11 Phosphorus 2.6 mg/dl (2.5-4.9) 03/29/23 06:11 Magnesium 2.1 mg/dl (1.7-2.4) 03/29/23 06:11 Total Bilirubin 0.8 mg/dl (0.2-1.0) 03/25/23 19:26 AST 24 U/L (13-39) 03/25/23 19:26 ALT 21 U/L (7-52) 03/25/23 19:26 Alkaline Phosphatase 81 U/L (34-104) 03/25/23 19:26 Total Protein 8.9 gm/dl (6.0-8.3) H 03/25/23 19:26 Albumin 5.2 gm/dl (3.4-5.0) H 03/25/23 19:26 Globulin 3.7 gm/dl (2.5-4.0) 03/25/23 19:26 Albumin/Globulin Ratio 1.4 (0.9-2) 03/25/23 19:26 Triglycerides 124 mg/dl (0-150) 03/26/23 07:11 Cholesterol 139 mg/dl (0-200) 03/26/23 07:11 LDL Cholesterol, Calc 73 mg/dl 03/26/23 07:11 VLDL Cholesterol, Calc 25 mg/dl (0-30) 03/26/23 07:11 HDL Cholesterol 41 mg/dl 03/26/23 07:11 Cholesterol/HDL Ratio 3.4 (0-5) 03/26/23 07:11 Lipase 8 U/L (11-82) L 03/25/23 19:26 Procalcitonin 0.12 ng/ml (0-0.5) 03/27/23 06:21 TSH 0.895 uIu/ml (0.300-4.500) 03/25/23 19:27 PTH Intact 48.9 pg/ml (12.0-88.0) 03/27/23 06:21 Urine Color Yellow 03/25/23 19:27 Urine Appearance Clear (Clear) 03/25/23 19:27 Urine pH 5.0 (4.5-7.5) 03/25/23 19:27 Ur Specific [place] 1.027 (1.000-1.030) 03/25/23 19:27 Urine Protein 2+ (Negative) H 03/25/23 19:27 Urine Glucose (UA) 3+ (Negative) H 03/25/23 19:27 Urine Ketones 4+ (Negative) H 03/25/23 19:27 Urine Blood Trace (Negative) H 03/25/23 19:27 Urine Nitrite Negative (Negative) 03/25/23 19:27 Urine Bilirubin Negative (Negative) 03/25/23 19:27 Urine Urobilinogen Negative (Negative) 03/25/23 19:27 Ur Leukocyte Esterase Negative (Negative) 03/25/23 19:27 Urine WBC (Auto) 1-5 /hpf (0-5) 03/25/23 19:27 Urine RBC (Auto) 0-4 /hpf (0-4) 03/25/23 19:27 U Hyaline Cast (Auto) 0 /lpf (0-5) 03/25/23 19:27 U Epithel Cells (Auto) 0-5 /lpf (0-5) 03/25/23 19:27 Urine Bacteria (Auto) Negative (Negative) 03/25/23 19:27 Stool Occult Bld Scrn Negative (Negative) 03/28/23 22:45 Lyme Disease IgG Ab Negative (Negative) 03/26/23 00:30 Lyme Disease IgM Ab Negative (Negative) 03/26/23 00:30 SARS-CoV-2, RNA, NAAT NEGATIVE (NEGATIVE) 03/25/23 Unknown Blood Type A Positive 03/26/23 00:30 Antibody Screen NEGATIVE 03/26/23 00:30 Impressions Abdomen/Pelvis CT 03/25/23 19:30 Exam(s): CT ABDOMEN + PELVIS With Contrast EXAM: CT Abdomen and Pelvis With Intravenous Contrast CLINICAL HISTORY: Reason for exam: abd pain N/V /D. TECHNIQUE: Axial computed tomography images of the abdomen and pelvis with intravenous contrast. CTDI is 10.94 mGy and DLP is 522.83 mGy-cm. Automated exposure control was utilized for the study. A dose lowering technique was utilized adhering to the principles of ALARA. CONTRAST: Contrast must be dictated COMPARISON: No relevant prior studies available. FINDINGS: Mediastinum: Mild thickening of the distal esophagus. ABDOMEN: Liver: Mild fatty liver. Gallbladder and bile ducts: No radiodense stones. No biliary ductal dilation. Pancreas: Unremarkable. Spleen: Unremarkable. Adrenals: 14 mm right adrenal nodule. Kidneys and ureters: No renal or ureteral calculi. No obstructive changes. Stomach and bowel: No paulie mural thickening. Nonobstructive bowel gas pattern. PELVIS: Appendix: Unremarkable appendix. Bladder: Unremarkable. Reproductive: Unremarkable. ABDOMEN and PELVIS: Intraperitoneal space: Unremarkable. Bones/joints: No acute fracture. Soft tissues: Unremarkable. Vasculature: No acute process. Lymph nodes: No bulky adenopathy. IMPRESSION: Mild thickening of the distal esophagus. Could represent esophagitis. Electronically signed by: Bárbara Zimmerman M.D. 03/25/23 21:[address] 03/25/23 22:49 Exam(s): CT HEAD Without Contrast EXAM: CT Head Without Intravenous Contrast CLINICAL HISTORY: Reason for exam: fernandez, htn. TECHNIQUE: Axial computed tomography images of the head/brain without intravenous contrast. Automated exposure control was utilized for the study. A dose lowering technique was utilized adhering to the principles of ALARA. COMPARISON: No relevant prior studies available. FINDINGS: Brain: Unremarkable. No hemorrhage. No significant white matter disease. No edema. Ventricles: Unremarkable. No ventriculomegaly. Bones/joints: Unremarkable. No acute fracture. Soft tissues: Unremarkable. Sinuses: Unremarkable as visualized. No acute sinusitis. Mastoid air cells: Unremarkable as visualized. No mastoid effusion. IMPRESSION: Normal head/brain CT. Electronically signed by: Kendall Christianson MD 03/25/23 23:58 PM Brain MRI 03/26/23 02:32 MR brain wo con, MR angio head wo con HISTORY: 57 years-old Male tia acute stroke like symptoms COMPARISON: Head CT 03/25/2023 TECHNIQUE: Multiplanar multisequence MRI of the brain was obtained without the use of IV contrast. MRA of the head was obtained without use of IV contrast utilizing 3-D [id number] or mass. All measurements were obtained according to NASCET criteria. FINDINGS: BRAIN MRI: No acute or subacute territorial infarct. There are 2 subcentimeter foci measuring up to 5 mm within the periventricular right frontal lobe on image 15 series 5 which demonstrate intermediate signal on ADC map and increased T2/FLAIR signal. No acute intracranial hemorrhage, midline shift, abnormal extra-axial collection, hydrocephalus or intracranial mass. No pathologic thinning artifact on the T2*series. Cmys-dr-soiirkhg scattered T2/FLAIR hyperintense foci throughout the white matter. Midline structures appear unremarkable. Cerebral venous sinuses and major arterial flow voids appear patent. Skull, orbits and soft tissues are unremarkable. Mastoid air cells and paranasal sinuses are clear. MRA: No aneurysm, dissection, high-grade stenosis or arterial occlusion identified. IMPRESSION: 1. No acute intracranial hemorrhage, midline shift or acute territorial infarct. 2. Two subcentimeter foci of increased diffusion-weighted signal within the periventricular right frontal lobe likely represent subacute lacunar infarcts. T2 shine through related to underlying chronic microvascular ischemic disease could appear similarly. 3. Unremarkable MRA. ACT 112: Negative or not required by law. The above report was generated using voice recognition software. It may contain grammatical, syntax or spelling errors. Electronically signed by: Zachery Kahn M.D. 03/26/2023 11:23 AM Carotid Doppler Study 03/26/23 02:32 US carotid doppler BI CLINICAL HISTORY: 57 years-old Male with tia. Acute stroke like symptoms COMPARISON: None TECHNIQUE: Multiple real time sonographic images of the carotid bifurcations were obtained assessing hernández scale, color Doppler and spectral wave form appearance FINDINGS: RIGHT CAROTID: The peak systolic velocity measured within the right ICA is 99.5 cm/sec. The end diastolic velocity measured 8.5 cm/sec. The ICA to CCA ratio measured 0.9 which correlates with a stenosis of 0-50%. Mild atherosclerotic plaque of the right carotid bulb and proximal right ICA. LEFT CAROTID: The peak systolic velocity measurement of the left ICA is 96.6 cm/sec. The end diastolic velocity measured 14.4 cm/sec. The ICA to CCA ratio measured 1.0 which correlates with a stenosis of 0-50%. Mild atherosclerotic plaque of the left carotid bulb and proximal left ICA. There is normal antegrade vertebral flow bilaterally. IMPRESSION: 1. No hemodynamically significant stenosis or significant atherosclerotic plaquing. 2. Normal antegrade vertebral flow bilaterally. ACT 112: Negative or not required by law. The above report was generated using voice recognition software. It may contain grammatical, syntax or spelling errors. Electronically signed by: Zachery Kahn M.D. 03/26/2023 8:10 AM Head MRA 03/26/23 02:32 MR brain wo con, MR angio head wo con HISTORY: 57 years-old Male tia acute stroke like symptoms COMPARISON: Head CT 03/25/2023 TECHNIQUE: Multiplanar multisequence MRI of the brain was obtained without the use of IV contrast. MRA of the head was obtained without use of IV contrast utilizing 3-D [id number] or mass. All measurements were obtained according to NASCET criteria. FINDINGS: BRAIN MRI: No acute or subacute territorial infarct. There are 2 subcentimeter foci measuring up to 5 mm within the periventricular right frontal lobe on image 15 series 5 which demonstrate intermediate signal on ADC map and increased T2/FLAIR signal. No acute intracranial hemorrhage, midline shift, abnormal extra-axial collection, hydrocephalus or intracranial mass. No pathologic thinning artifact on the T2*series. Rmnw-nw-mnrnlbar scattered T2/FLAIR hyperintense foci throughout the white matter. Midline structures appear unremarkable. Cerebral venous sinuses and major arterial flow voids appear patent. Skull, orbits and soft tissues are unremarkable. Mastoid air cells and paranasal sinuses are clear. MRA: No aneurysm, dissection, high-grade stenosis or arterial occlusion identified. IMPRESSION: 1. No acute intracranial hemorrhage, midline shift or acute territorial infarct. 2. Two subcentimeter foci of increased diffusion-weighted signal within the periventricular right frontal lobe likely represent subacute lacunar infarcts. T2 shine through related to underlying chronic microvascular ischemic disease could appear similarly. 3. Unremarkable MRA. ACT 112: Negative or not required by law. The above report was generated using voice recognition software. It may contain grammatical, syntax or spelling errors. Electronically signed by: Zachery Kahn M.D. 03/26/2023 11:23 AM Thyroid Ultrasound 03/26/23 12:45 US thyroid CLINICAL HISTORY: 57 years-old Male with hyperparathyroidism- eval for parathyroid adenoma. COMPARISON: None TECHNIQUE: Multiple real time sonographic images of the thyroid were obtained accessing hernández scale appearance and color doppler flow. FINDINGS: MEASUREMENTS: Right lobe: 5.5 x 1.8 x 1.9 cm Left lobe: 4.9 x 1.3 x 1.7 cm Isthmus: 0.4 cm PARENCHYMA: The thyroid parenchymal echotexture is predominantly homogeneous. NODULES: No suspicious nodules are identified. 5 mm hypoechoic nodule in the mid right thyroid suggestive of a colloid cyst. IMPRESSION: No suspicious thyroid nodules identified. ACT 112: Negative or not required by law. The above report was generated using voice recognition software. It may contain grammatical, syntax or spelling errors. Electronically signed by: Zachery Kahn M.D. 03/26/2023 2:38 PM Hospital Course (1) Diabetic keto-acidosis: (2) Hypercalcemia: (3) Lacunar infarction: (4) Leukocytosis: (5) Diabetes mellitus type 2 in nonobese: Plan 57-year-old male with history of diabetes mellitus, hypertension, anxiety/mood disorder, Yo's tumor, past tobacco/alcohol abuse presented to ED 03/25/2023 with 4 days of strokelike symptoms-intermittent dizziness, episodic frontal headache, weird writing, achy abdomen, constipation, fogginess etc. Also had episode of coffee ground emesis x2 after multiple vomiting episodes. MRI/MRA brain 1. No acute intracranial hemorrhage, midline shift or acute territorial infarct. 2. Two subcentimeter foci of increased diffusion-weighted signal within the periventricular right frontal lobe likely represent subacute lacunar infarcts. T2 shine through related to underlying chronic microvascular ischemic disease could appear similarly. 3. Unremarkable MRA. Carotid doppler 1. No hemodynamically significant stenosis or significant atherosclerotic plaquing. 2. Normal antegrade vertebral flow bilaterally. Echo- EF 55-60%, no thrombus, no ASD or PFO but presence of extracardiac shunt such as pulmonary AV malformation or HPS. US thyroid- No suspicious thyroid nodules identified. CT A/P: Mild thickening of the distal esophagus. Could represent esophagitis. Euglycemic DKA in setting of Jardiance for DM-2: Improving. A1c 8, BG 217, AG 29->18->16->18->12->11->11, CO2 12->13->14->14->18->22. Ketonuria 4+. PH 7.26 on VBG - DKA almost resolved with fluids and basal bolus insulin. Continue lantus and SSI but requiring very less insulin - Discontinued Jardiance and recommend against other SGLT2 inhibitor - Managed with basal bolus insulin inhouse but required very less and required D5 assistance - Seen by glycemic pharmacist and environmental educator- recommendations noted. - Continue metformin. Added sitagliptin at discharge - Also discharged on glucometer and supplies to check his BG at home - Recommended to follow with [facility] diabetes clinic for better management of his BG and discuss other options if needed. Hypophosphatemia- resolved Hypercalcemia- resolved. likely from dehydration rather than parathyroidism. His PTH was likely erroneously elevated on admission and is now normal. PTH 169->48, Calcium 11->10.4->8.7->9, US thyroid reviewed. Subacute lacunar infarct- seen on MRI. Imaging, echo and tele reviewed. Seen by neuro. Recommendations noted as below - ASA 81 mg daily, lipitor 40 mg daily - OP Holter/zio patch per cardio - Neuro follow up in 6-8 wks Coffee ground emesis- resolved. possibly esophagitis or irritation from multiple episodes of vomiting vs Renetta Terry tear. CT with esophagitis. FOBT negative. Hb stable at 14. Seen by Gi and recommended OP colonoscopy/EGD. Started on PPI daily. Leucocytosis- resolved. likely reactive in setting of #1. No fever or focal source of infection. WBC 21->18->10. No indication for antibiotics Anxiety/mood disorder- continue paxil Warthin's tumor- He has OP ENT follow up scheduled HTN- BP rebounded. Resume home losartan at discharge Nicotine dependence- Quit smoking in Nov but on nicoderm patch 21 for over a month now. He did not feel he is ready to titrate down to 14. F/u with PCP to continue to titrate down. Total Time Total Time Spent Total Time Spent (In Minutes): 45 Discharge Plan Discharge Items Patient Disposition: Home - Self-Care Reason For Visit: TIA, UGIB Discharge Diagnosis: Euglycemic DKA, Subacute lacunar infarct Activity: Resume your previous activity Non-emergency contact: Primary Care Provider Call non-emergency contact if: you have any medication questions and your symptoms worsen Follow-up/Referrals: Tonja Kwong PA-C [Outside Practitioners] - 04/06/23 2:15 pm (Please arrive to this appointment 15 minutes early. ) Rob Chisholm MD [Primary Care Provider] - (Date & Time 04/04/2023 9:00 AM Provider Rob Chisholm MD Department Family Practice [facility] ) Jeny Doshi PA-C [Physician Corporate Learning Consultant] - (Date & Time 05/13/2023 11:20 AM Provider Jeny Doshi PA-C Department Neurology [facility] ) Adalberto Daniel Jr, MD [Physician] - Diet: Carb Consistent or DM2 Addtl Attending Provider Instructions: Continue metformin STOP JARDIANCE Start jauvia once daily Continue aspirin, lipitor, protonix Follow up with cardio for zio patch or Holter Follow up with GI for colonoscopy and endoscopy Follow up with neuro in 4-6 weeks Follow up [place] diabetes clinic Follow up with family doctor Pending Studies at Discharge: No Stand-Alone Forms: [email or web address], Smoking Cessation Medications and DC Order Prescriptions: New aspirin 81 mg Tablet,Delayed Release (Dr/Ec) 81 mg PO QAM Qty: 30 0RF pantoprazole 40 mg Tablet,Delayed Release (Dr/Ec) 40 mg PO DAILY Qty: 30 0RF Rx Instructions: half hour before breakfast atorvastatin 40 mg Tablet 40 mg PO QAM Qty: 30 0RF Januvia 100 mg tablet 100 mg PO DAILY Qty: 30 0RF (DME) blood-glucose meter Misc See Rx Instructions .Route Qty: 1 0RF Rx Instructions: As directed (DME) OneTouch Verio test strips Strip See Rx Instructions .Route Qty: 100 0RF Rx Instructions: As directed (DME) lancets 33 gauge misc See Rx Instructions .Route Qty: 100 0RF Rx Instructions: As directed Continued metformin 500 mg tablet 1,000 mg PO BID paroxetine HCl 30 mg tablet 30 mg PO QAM losartan 25 mg tablet 25 mg PO QAM nicotine 21 mg/24 hr patch 24 hour 1 patch topical DAILY ketoconazole 2 % cream 1 applic TOPICAL BID Metamucil Gummies 2 - 3 tabs PO DAILY Prebiotic Gummy 2 - 3 tabs PO DAILY ondansetron 4 mg tablet,disintegrating 4 mg PO Q6H PRN (Reason: nausea and vomiting) Qty: 12 0RF Discontinued Jardiance 25 mg tablet 25 mg PO DAILY Discharge Orders: Discharge Order (Routine); Ordered 03/29/23 Ordered By: Suresh Ramirez/Other Patient Handouts: Managing Type 2 Diabetes, How to Check Your Blood Sugar Admission Data Admit Date/Time: 03/26/23 00:08 Attending Provider: Suresh Hicks Admit Provider: Aden Thomson Primary Care Provider: Rob Chisholm Other Providers: Carol Esposito ; Adrián Mao ; Katherine Newton ; Kelly Hill ; Poornima Dolan ; Yaneth Harris ; Hermann Greenwood ; Kamar Ruano ; Davian Gonzalez ; Emiliano Murray ; Miquel Snyder ; Tessie Dempsey ; Rosibel Leigh ; Cynthia Sharp ; Temi Rao ; Marci Delvalle ; Александр Connor ; Deni De Souza ; Lela Hamm ; Adalberto Daniel Jr ; Aden Thomson Other Interventions: Discharge Summary Assessment (RN) Last Done: 03/29/23 09:36
[2023-03-29] MEDS: POT PHOSPHATE MONOBASIC W/ SOD TAB PO SCH (09:06)
[2023-03-29] MEDS: PANTOprazole 40 MG TAB PO SCH (09:07)
[2023-03-29] MEDS: ATORVASTATIN 40 MG TAB PO SCH (09:07)
[2023-03-29] MEDS: NICOTINE 14 MG/24 HR PATCH TD SCH (09:56)
[2023-03-29] MEDS: DOCUSATE SODIUM/SENNA 50/8.6MG TAB PO SCH (09:56)
[2023-03-29] MEDS: PARoxetine HCL 20 MG TAB PO SCH (09:56)
[2023-03-29] MEDS: ASPIRIN 81 MG ECTAB PO SCH (09:57)
== END 2023-03-29 10:20 | disposition home or self-care (01) | DRG 64 ==
LOC: ED 19:11 → 2N 03-26 00:08

== ENCOUNTER 2023-11-24 02:38 | Inpatient (IN) ==
[2023-11-24] MEDS: SODIUM CHLORIDE 0.9% 1,000 ML IV SCH ×3 (03:00→09:23)
[2023-11-24 03:23] LABS: Basophils # (auto) 0.06 K/uL (0.00-0.20); Basophils % (auto) 0.4 %; Eosinophils # (auto) 0.05 K/uL (0.00-0.50); Eosinophils % (auto) 0.3 %; Hematocrit (blood only) 43.2 % (42.0-52.0); Hemoglobin 15.6 g/dl (14.0-18.0); Immature Granulocytes # (auto) 0.16 K/uL (0.01-0.20); Immature Granulocytes % (auto) 1.1 %; Lymphocytes # (auto) 2.75 K/uL (1.20-3.40); Lymphocytes % (auto) 18.3 %; Mean Corpuscular Hemoglobin 32.4 pg (25.0-34.0); Mean Corpuscular Hgb Conc 36.1 g/dL (32.0-36.0); Mean Corpuscular Volume 89.8 fL (80.0-100.0); Mean Platelet Volume 8.3 fL (9.4-12.4); Monocytes # (auto) 1.18 K/uL (0.11-0.59); Monocytes % (auto) 7.9 %; Neutrophils # (auto) 10.79 K/uL (1.40-6.50); Platelet Count 307 K/uL (130-400); RDW Coefficient of Variation 11.7 % (11.5-14.5); RDW Standard Deviation 37.8 fL (36.4-46.3); Red Blood Count 4.81 M/uL (4.70-6.10); White Blood Count 14.99 K/ul (4.8-10.8)
[2023-11-24 03:32] LABS: Alanine Aminotransferase 18 U/L (7-52); Albumin Globulin Ratio 1.6 (0.9-2); Albumin Level 4.7 gm/dl (3.4-5.0); Alkaline Phosphatase 70 U/L (34-104); Anion Gap 21 (3-11); Aspartate Aminotransferase 22 U/L (13-39); BUN Creatinine Ratio 19.4 (10-20); Bilirubin,Total 0.9 mg/dl (0.2-1.0); Blood Urea Nitrogen 21 mg/dl (6-23); Calcium 10.7 mg/dl (8.6-10.3); Carbon Dioxide 19 mmol/L (21-32); Chloride 95 mmol/L (98-107); Est GFR (African American) 88.5 ml/min; Est GFR (Non-African American) 76.3 ml/min; Globulin 2.9 gm/dl (2.5-4.0); Glucose 169 mg/dl (70-99(Fasting)); Lipase 110 U/L (11-82); Magnesium 1.2 mg/dl (1.7-2.4); Potassium 3.6 mmol/L (3.5-5.1); Sodium 135 mmol/L (136-145); Total Protein 7.6 gm/dl (6.0-8.3)
[2023-11-24 03:38] LABS: Troponin I High Sensitivity 9.8 pg/ml (0-20)
[2023-11-24 03:53] LABS: Base Excess VBG -2.6 mEq/L; HCO3 VBG 19 mmol/L; Oxygen Saturation VBG < 60.0 %; PCO2 VBG 25 mmHg (38-50); PO2 VBG 24 mmHg; pH VBG 7.49 (7.36-7.41)
[2023-11-24] MEDS: ONDANSETRON INJ 2 MG/ML 2 ML VIAL IV STA (03:55)
[2023-11-24] MEDS: MAGNESIUM SULFATE / D5W 1 GM/100 ML BAG IV STA (03:55)
[2023-11-24 04:21] LABS: Appearance Urine Clear (Clear); Bacteria Urine Automated Negative (Negative); Bilirubin Urine Negative (Negative); Blood Urine Trace (Negative); Cast Urine Automated 0 /lpf (0-5); Color Urine Yellow; Epithelial Cell Urine Auto 0-5 /lpf (0-5); Glucose Urine UA Negative (Negative); Ketones Urine 3+ (Negative); Leukocyte Esterase Urine Negative (Negative); Nitrite Urine Negative (Negative); Protein Urine Negative (Negative); RBC Urine Automated 0-4 /hpf (0-4); Urobilinogen Urine Negative (Negative); WBC Urine Automated 0 /hpf (0-5); pH Urine 6.5 (4.5-7.5)
[2023-11-24] MEDS ORDERED: HYDROmorphone INJ 0.5 MG/0.5 ML SYR IV PRN (05:28)
[2023-11-24] MEDS: MAGNESIUM SULFATE / D5W 1 GM/100 ML BAG IV SCH (05:56)
--- NOTE | 2023-11-24 06:14 | History & Physical Report ---
Date of Service November 24, 2023 Assessment & Plan (1) Nausea & vomiting: Plan: 58-year-old male with past med history significant for type 2 diabetes, hypertension, Warthin's tumor, BPH, bipolar disorder, history of alcoholism but patient states not drinking since 2019 presents with severe abdominal pain associated with nausea and several episodes of vomiting since last Tuesday. Last Tuesday started taking Ozempic first dose. Also on metformin. He was on Jardiance but he stopped on last Tuesday before he started taking Ozempic. He had several episodes of vomitings since then. He states couple of episodes were coffee-ground but most of them are bile and last episode of vomiting was bilious. He had normal bowel movement yesterday. Denies any blood in stools or black stools. Rates abdominal pain 9 / 10 in severity. He had mild chest pain in the middle of the chest. Has shortness of breath because of pain. Has some cough. No fevers. Has headache. Has blurred vision. Has runny nose and sore throat. Nausea, vomiting and abdominal pain States started after taking Ozempic last Tuesday Will get CT abdomen pelvis N.p.o. IV fluids IV Dilaudid as needed IV antiemetics as needed IV Protonix 40 mg twice daily Patient has anion gap and CO2 is 19 but VBG pH is okay Was on Jardiance until last Tuesday. Will follow repeat labs closely and if still has anion gap may need to start on IV insulin for euglycemic DKA Close monitor Questionable coffee-ground emesis Hemoglobin stable Patient IV Protonix 40 minutes twice daily for now Will follow stool for Hemoccult Close monitor Hypomagnesia We will replace Follow repeat labs chest pain? will follow serial CE and echo. Tobacco abuse On nicotine patch Diabetes Hold metformin Sliding scale Close monitor Hypertension Elevated Continue home losartan IV labetalol as needed. Close monitor Hyperlipidemia Statin Mood disorder Continue home meds Right Warthin tumor under observation with ENT currently DVT prophylaxis SCDs for now for questionable GI bleed Disposition Med/tele Full code History of Present Illness Chief Complaint: Nausea vomiting and abdominal pain Primary Care Provider: Rob Chisholm MD 58-year-old male with past med history significant for type 2 diabetes, hypertension, Warthin's tumor, BPH, bipolar disorder, history of alcoholism but patient states not drinking since 2019 presents with severe abdominal pain associated with nausea and several episodes of vomiting since last Tuesday. Sal mejia Tuesday started taking Ozempic first dose. Also on metformin. He was on Jardiance but he stopped on last Tuesday before he started taking Ozempic. He had several episodes of vomitings since then. He states couple of episodes were coffee-ground but most of them are bile and last episode of vomiting was bilious. He had normal bowel movement yesterday. Denies any blood in stools or black stools. Rates abdominal pain 9 / 10 in severity. He had mild chest pain in the middle of the chest. Has shortness of breath because of pain. Has some cough. No fevers. Has headache. Has blurred vision. Has runny nose and sore throat. Past medical history. As mentioned above Past surgical history. IR biopsy. Tonsillectomy adenoidectomy. Social history. Started smoking 1984 smokes half pack a day. Currently on nicotine patch as per patient. She is quit drinking alcohol 2020. No drug use. Family history. Father had kidney cancer. Maternal grandfather had lung cancer. Mother had uterine cancer. Sister has hypertension. Allergies Allergy/AdvReac Type Severity Reaction Status Date / Time No Known Allergies Allergy Unverified 06/07/23 11:27 Home Medications Medication Instructions Recorded Confirmed Type aspirin 81 mg tablet,delayed 81 mg PO DAILY 11/24/23 11/24/23 History release atorvastatin 40 mg tablet 40 mg PO HS 11/24/23 11/24/23 History buspirone 5 mg tablet 5 mg PO BID 11/24/23 11/24/23 History losartan 50 mg tablet 50 mg PO DAILY 11/24/23 11/24/23 History metformin 500 mg tablet,extended 2,000 mg PO DAILY 11/24/23 11/24/23 History release 24 hr nicotine 21 mg/24 hr daily 21 mg topical DAILY 11/24/23 11/24/23 History transdermal patch pantoprazole 40 mg tablet,delayed 40 mg PO DAILY 11/24/23 11/24/23 History release paroxetine HCl 30 mg tablet 30 mg PO DAILY 11/24/23 11/24/23 History semaglutide 0.25 mg or 0.5 mg (2 0.25 mg subcut WK 11/24/23 11/24/23 History mg/3 mL) subcutaneous pen injector (Ozempic) Past Med/Surg History Medical History PTSD (post-traumatic stress disorder) Surgical History No pertinent past surgical history Social History Smoking Status: Former smoker Tobacco Type: Cigarettes Cigarettes Per Day: 1 pack/day; Second Hand Exposure: No; Do You Dip or Chew Tobacco: Yes (Quit); Hx Alcohol Use: No Hx Substance Use: Yes Last Used Substance Other:: 1-2 weeks ago Substance Use Type Other:: medical marijuana Preferred Language: Albanian Communication Ability: Effective Product Scientist Required: No Beliefs That Will Affect Care: None Current Living Situation: Alone Feels Safe at Home: Yes Assistive Devices: Cane Review of Systems Review of Systems: All systems reviewed & are unremarkable except as noted in HPI & below Physical Exam Physical Exam: General- Not in distress Head- atraumatic Eyes- PERRL. ENT- oropharynx clear Neck- supple, no JVD. Lungs- clear to auscultation no wheezing or crackles Heart- regular rhythm; no murmur, no gallop. Abdomen- normal bowel sounds, soft, mild diffuse discomfort, no guarding or rigidity or distension. Extremities- no pretibial edema, no erythema seen. Neuro- alert, oriented x 3; PERRL, no facial palsy; no dysarthria; moves extremities. Skin- warm & dry Results & Data Results & Data Vital Signs (Past 12 Hours) Vital Signs Pulse Resp BP Pulse Ox O2 Del Method 11/24/23 05:00 116 H 17 188/114 H 97 Room Air 11/24/23 04:30 104 H 23 185/113 H 100 Room Air 11/24/23 04:00 106 H 15 187/107 H 100 Room Air 11/24/23 03:49 108 H 12 187/111 H 100 Room Air 11/24/23 03:04 114 H 19 185/115 H 95 Room Air 11/24/23 02:56 118 H 11/24/23 02:44 123 H 22 179/88 H 100 Room Air Diagnostic Findings Laboratory Results WBC 14.99 K/ul (4.8-10.8) H 11/24/23 03:00 RBC 4.81 M/uL (4.70-6.10) 11/24/23 03:00 Hgb 15.6 g/dl (14.0-18.0) 11/24/23 03:00 Hct 43.2 % (42.0-52.0) 11/24/23 03:00 MCV 89.8 fL (80.0-100.0) 11/24/23 03:00 MCH 32.4 pg (25.0-34.0) 11/24/23 03:00 MCHC 36.1 g/dL (32.0-36.0) H 11/24/23 03:00 RDW Std Deviation 37.8 fL (36.4-46.3) 11/24/23 03:00 RDW Coeff of Asad 11.7 % (11.5-14.5) 11/24/23 03:00 Plt Count 307 K/uL (130-400) 11/24/23 03:00 MPV 8.3 fL (9.4-12.4) L 11/24/23 03:00 Immature Gran % (Auto) 1.1 % 11/24/23 03:00 Neut % (Auto) 72.0 % 11/24/23 03:00 Lymph % (Auto) 18.3 % 11/24/23 03:00 Rawlins % (Auto) 7.9 % 11/24/23 03:00 Eos % (Auto) 0.3 % 11/24/23 03:00 Baso % (Auto) 0.4 % 11/24/23 03:00 Neut # (Auto) 10.79 K/uL (1.40-6.50) H 11/24/23 03:00 Lymph # (Auto) 2.75 K/uL (1.20-3.40) 11/24/23 03:00 Rawlins # (Auto) 1.18 K/uL (0.11-0.59) H 11/24/23 03:00 Eos # (Auto) 0.05 K/uL (0.00-0.50) 11/24/23 03:00 Baso # (Auto) 0.06 K/uL (0.00-0.20) 11/24/23 03:00 Immature Gran # (Auto) 0.16 K/uL (0.01-0.20) 11/24/23 03:00 VBG pH 7.49 (7.36-7.41) H 11/24/23 03:46 VBG pCO2 25 mmHg (38-50) L 11/24/23 03:46 VBG pO2 24 mmHg 11/24/23 03:46 VBG HCO3 19 mmol/L 11/24/23 03:46 VBG O2 Saturation < 60.0 % 11/24/23 03:46 VBG Base Excess -2.6 mEq/L 11/24/23 03:46 Sodium 135 mmol/L (136-145) L 11/24/23 03:00 Potassium 3.6 mmol/L (3.5-5.1) 11/24/23 03:00 Chloride 95 mmol/L (98-107) L 11/24/23 03:00 Carbon Dioxide 19 mmol/L (21-32) L 11/24/23 03:00 Anion Gap 21 (3-11) H 11/24/23 03:00 BUN 21 mg/dl (6-23) 11/24/23 03:00 Creatinine 1.08 mg/dl (0.6-1.4) 11/24/23 03:00 Est Cr Clr Drug Dosing Not Reportable 11/24/23 03:00 Est GFR ( Amer) 88.5 ml/min 11/24/23 03:00 Est GFR (Non-Af Amer) 76.3 ml/min 11/24/23 03:00 BUN/Creatinine Ratio 19.4 (10-20) 11/24/23 03:00 Glucose 169 mg/dl (70-99(Fasting)) H 11/24/23 03:00 POC Glucose 184 mg/dl (70-99) H 11/24/23 02:57 Calcium 10.7 mg/dl (8.6-10.3) H 11/24/23 03:00 Magnesium 1.2 mg/dl (1.7-2.4) L 11/24/23 03:00 Total Bilirubin 0.9 mg/dl (0.2-1.0) 11/24/23 03:00 AST 22 U/L (13-39) 11/24/23 03:00 ALT 18 U/L (7-52) 11/24/23 03:00 Alkaline Phosphatase 70 U/L (34-104) 11/24/23 03:00 Troponin I High Sens 9.8 pg/ml (0-20) 11/24/23 03:00 Total Protein 7.6 gm/dl (6.0-8.3) 11/24/23 03:00 Albumin 4.7 gm/dl (3.4-5.0) 11/24/23 03:00 Globulin 2.9 gm/dl (2.5-4.0) 11/24/23 03:00 Albumin/Globulin Ratio 1.6 (0.9-2) 11/24/23 03:00 Lipase 110 U/L (11-82) H 11/24/23 03:00 Urine Color Yellow 11/24/23 04:05 Urine Appearance Clear (Clear) 11/24/23 04:05 Urine pH 6.5 (4.5-7.5) 11/24/23 04:05 Ur Specific Burwell 1.010 (1.000-1.030) 11/24/23 04:05 Urine Protein Negative (Negative) 11/24/23 04:05 Urine Glucose (UA) Negative (Negative) 11/24/23 04:05 Urine Ketones 3+ (Negative) H 11/24/23 04:05 Urine Blood Trace (Negative) H 11/24/23 04:05 Urine Nitrite Negative (Negative) 11/24/23 04:05 Urine Bilirubin Negative (Negative) 11/24/23 04:05 Urine Urobilinogen Negative (Negative) 11/24/23 04:05 Ur Leukocyte Esterase Negative (Negative) 11/24/23 04:05 Urine WBC (Auto) 0 /hpf (0-5) 11/24/23 04:05 Urine RBC (Auto) 0-4 /hpf (0-4) 11/24/23 04:05 U Hyaline Cast (Auto) 0 /lpf (0-5) 11/24/23 04:05 U Epithel Cells (Auto) 0-5 /lpf (0-5) 11/24/23 04:05 Urine Bacteria (Auto) Negative (Negative) 11/24/23 04:05 Ethyl Alcohol mg/dL < 10.0 mg/dl (<10.0) 11/24/23 03:46 ECG Additional Comments: ECG. Sinus tachycardia rate of 117. Possible left atrial enlargement. Nonspecific ST wave abnormality. Code Status & VTE Plan VTE Prophylaxis Plan VTE Prophylaxis will be ordered: Yes
[2023-11-24] MEDS: LABETALOL HCL IV 5 MG/ML 20ML IV PRN (06:31)
--- NOTE | 2023-11-24 06:58 | XRay Report ---
XR KUB/Abdomen 1 view CLINICAL HISTORY: n/v TECHNIQUE: 1 view of the abdomen was obtained. Comparison: None available at the time of this dictation. FINDINGS: Lung bases are unremarkable. The osseous structures are grossly unremarkable. The bowel gas pattern i s nonobstructive. A moderate amount of stool is noted within the large bowel. IMPRESSION: Nonobstructive bowel gas pattern. ACT 112: Negative or not required by law. Electronically signed by: Anton Islas M.D. 11/24/2023 6:57 AM
[2023-11-24] MEDS ORDERED: NITROGLYCERIN SL 0.4 MG/TAB TAB SL PRN (08:55)
[2023-11-24] MEDS ORDERED: GLUCAGON FOR INJ 1 MG VIAL SQ PRN (08:55)
[2023-11-24] MEDS ORDERED: GLUCOSE 40% GEL 15 GM TUBE PO PRN (08:55)
[2023-11-24] MEDS ORDERED: GLUCOSE 10 TAB/TUBE PO PRN (08:55)
[2023-11-24] MEDS ORDERED: PHARMACY GLYCEMIC MGMT CONSULT PRN (08:55)
[2023-11-24] MEDS ORDERED: ACETAMINOPHEN 325 MG TAB PO PRN (08:55)
[2023-11-24] MEDS ORDERED: DEXTROSE 50% 50 ML SYRINGE IV PRN (08:55)
[2023-11-24] MEDS ORDERED: CARBOHYDRATES FOR HYPOGLYCEMIA PO PRN (08:55)
[2023-11-24] MEDS: INSULIN ASPART PER UNIT CHARGE SC SCH (10:13)
[2023-11-24] MEDS: NICOTINE 21 MG/24 HR TDSY TD SCH (10:13)
[2023-11-24] MEDS: PARoxetine HCL 10 MG TAB PO SCH (10:15)
[2023-11-24] MEDS: busPIRone 5 MG TAB PO SCH (10:15)
[2023-11-24] MEDS: LOSARTAN POTASSIUM 50 MG TAB PO SCH (10:15)
[2023-11-24] MEDS: PANTOprazole 40 MG in SYRINGE 0 ML IV SCH (10:16)
[2023-11-24] MEDS: ASPIRIN 81 MG ECTAB PO SCH (10:16)
[2023-11-24] MEDS: OPTIRAY 320 500ml IV ONE (10:27)
[2023-11-24] MEDS: MAGNESIUM OXIDE 400 MG TAB PO SCH (11:06)
[2023-11-24 11:10] LABS: Basophils # (auto) 0.02 K/uL (0.00-0.20); Basophils % (auto) 0.2 %; Hematocrit (blood only) 36.3 % (42.0-52.0); Hemoglobin 13.3 g/dl (14.0-18.0); Immature Granulocytes # (auto) 0.11 K/uL (0.01-0.20); Lymphocytes % (auto) 13.7 %; Mean Corpuscular Hemoglobin 32.7 pg (25.0-34.0); Mean Corpuscular Hgb Conc 36.6 g/dL (32.0-36.0); Mean Corpuscular Volume 89.2 fL (80.0-100.0); Monocytes # (auto) 0.82 K/uL (0.11-0.59); Monocytes % (auto) 7.5 %; Neutrophils # (auto) 8.49 K/uL (1.40-6.50); Neutrophils % (auto) 77.6 %; Platelet Count 268 K/uL (130-400); RDW Coefficient of Variation 11.7 % (11.5-14.5); RDW Standard Deviation 37.1 fL (36.4-46.3); Red Blood Count 4.07 M/uL (4.70-6.10); White Blood Count 10.94 K/ul (4.8-10.8)
[2023-11-24 11:21] LABS: Albumin Globulin Ratio 1.9 (0.9-2); Albumin Level 4.1 gm/dl (3.4-5.0); BUN Creatinine Ratio 16.7 (10-20); Bilirubin,Total 0.7 mg/dl (0.2-1.0); Calcium 8.8 mg/dl (8.6-10.3); Creatinine Clr Calc Pharmacy 87.1 ml/min; Est GFR (African American) 110.3 ml/min; Est GFR (Non-African American) 95.1 ml/min; Globulin 2.2 gm/dl (2.5-4.0); Magnesium 1.9 mg/dl (1.7-2.4); Phosphorus 2.8 mg/dl (2.5-4.9); Potassium 3.3 mmol/L (3.5-5.1); Total Protein 6.3 gm/dl (6.0-8.3)
[2023-11-24 11:27] LABS: Troponin I High Sensitivity 12.6 pg/ml (0-20)
--- NOTE | 2023-11-24 11:48 | Electrocardiogram Report ---
Test Reason : Blood Pressure : / mmHG Vent. Rate : 117 BPM Atrial Rate : 117 BPM P-R Int : 174 ms QRS Dur : 080 ms QT Int : 332 ms P-R-T Axes : 063 -27 089 degrees QTc Int : 463 ms Sinus tachycardia Possible Left atrial enlargement Nonspecific ST and T wave abnormality Abnormal ECG When compared with ECG of 07-JUN-2023 10:22, T wave inversion more evident in Lateral leads Confirmed by Kelby Koch ([id number]) on 11/24/2023 11:47:54 AM Referred By: REFERRED SELF Confirmed By:Kelby Koch
--- NOTE | 2023-11-24 12:09 | CT Scan Report ---
CT SCAN OF THE ABDOMEN AND PELVIS WITH IV CONTRAST CLINICAL HISTORY: Generalized abdominal pain. Nausea and vomiting. COMPARISON STUDY: Abdominal CT dated 03/25/2023. TECHNIQUE: Following the IV administration of 84 cc of Optiray 320, CT scan of the abdomen and pelvi s is performed from the lung bases to the proximal femora. Images are reviewed in the axial, sagittal , and coronal planes. IV contrast was administered without complication. A dose lowering technique wa s utilized adhering to the principles of ALARA. CT DOSE: 571.43 mGy.cm FINDINGS: Lung bases: The heart is normal in size and without pericardial effusion. The lung bases are clear. Liver: The contrast-enhanced liver is normal in size, contour, and attenuation. There is no intrahepa tic biliary ductal dilatation. The hepatic veins and portal veins are patent. Gallbladder: Unremarkable. Spleen: Normal in size and attenuation. Pancreas: Unremarkable. Adrenal glands: A 1.5 cm right adrenal nodule is unchanged. This likely represents an adenoma but can not be definitively characterized due to the presence of IV contrast. The left adrenal gland is adriana l in appearance. Kidneys: The contrast enhanced kidneys are normal in size and without hydronephrosis. Mild nonspecifi c bilateral perinephric stranding is similar to previous. The kidneys enhance symmetrically. Abdominal vasculature: The abdominal aorta is normal in course and caliber noting moderate to advance d atherosclerotic change. Bowel: There is no bowel obstruction. The appendix is well-visualized and normal. Peritoneum: There is no intraperitoneal free air or abdominal ascites. There is a fat-containing umbi lical hernia. A 1.8 cm lobulated water attenuation structure below the iliac bifurcation is similar t o previous and likely represents a lymphangioma. Lymphadenopathy: None. Pelvic viscera: The prostate gland is enlarged and heterogeneous. The bladder is distended, and the w all is mildly thickened/trabeculated indicating chronic outlet obstruction. Skeletal structures: No lytic or blastic lesions are seen. Mild degenerative change is noted in the s acroiliac joints. IMPRESSION: 1. No acute infectious or inflammatory findings are identified in the abdomen or pelvis. 2. Additional findings as above. ACT 112: Negative or not required by law. Electronically signed by: Misael Rangel M.D. 11/24/2023 12:07 PM
[2023-11-24 12:19] LABS: Estimated Average Glucose 212 mg/dl
--- NOTE | 2023-11-24 14:39 | Pharmacy Report ---
Pharmacy Glycemic Short Note 2 - Date of Service November 24, 2023 - Glycemic Short BSG Results (Last 24 hours): 11/24/23 11/24/23 11/24/23 02:57 03:00 10:04 Glucose 169 H POC Glucose 184 H 176 H 11/24/23 11/24/23 10:41 12:08 Glucose 167 H POC Glucose 110 H OUTPATIENT ANTIDIABETIC REGIMEN: * Metformin ER 2000mg daily * Ozempic 0.25mg SQ Qwk * HbA1c 9.0% (11/24/23), 8.0% (03/28/23) ASSESSMENT: * Román is a 58 YOM admitted for severe abdominal pain and nausea/vomitting (some coffee ground) since starting Ozempic last Tuesday. Pharmacy has been consulted for glycemic management. * Fasting BSG this AM slightly above goal range, currently NPO, will hold if continuing NPO and add a weight based stress of 1 basal dose if diet is ordered. * He is currently receiving IV fluids w/o dextrose, no other glycemic stressors noted at this time. * Novolog initiated at a weight based stress of 2, appears to be correcting adequately at this time. PLAN FOR INPATIENT GLYCEMIC CONTROL: * Hold outpatient oral diabetes medications * Basal insulin * Lantus 0-5 units SQ BID (HOLD if NPO, 5 units if ordered a diet and BSG >140mg/dL) * Bolus insulin * NovoLog per scale ACHS or Q6hrs while NPO * Goal Range: Low 110 mg/dL - High 140 mg/dL * Correction Factor: 35 mg/dL/unit * Nutritional / Prandial insulin per carb ratio of 1 unit per 12 grams CHO consumed
--- OUTSIDE RECORDS SUMMARY | 2023-11-24 15:24 | External Medical Summary | Summary of Care ---
Author Name Unknown Organization [facility] Address [address] [place] [address] Phone [phone] Care Team Providers Care Interline Clerk Name Role Phone Rob Chisholm MD Primary Care Provider + Encounter Details Date Type Department Care Team (Late st Contact Info) Description 11/17/2023 Orders Only Family Practice [facility] [address] [facility] [address] Rob Chisholm MD [address] [facility] [place] [address] Allergies No known active allergiesdocumented as of this encounter (statuses as of 11/17/2023) Medications Medication Sig Dispensed Refills Start Date End Date Status OneTouch Ultra 2 w/Device KitIndications:Type 2 diabetes mellitus with diabetic mononeuropathy, without long-term current use of insulin ([facility]) Check glucose one to four times daily as needed 1 Each 0 08/09/2022 Active OneTouch UltraSoft LancetsIndications:T ype 2 diabetes mellitus with diabetic mononeuropathy, without long-term current use of insulin ([facility]) Check glucose one to four times daily as needed 100 Each 11 08/09/2022 Active OneTouch Ultra Blue In Vitro Strip (Glucose Blood)Indications:Ty pe 2 diabetes mellitus with diabetic mononeuropathy, without long-term current use of insulin ([facility]) Check glucose one to four times daily as needed 100 Strip 11 08/09/2022 Active OneTouch Delica Lancing DevIndications:Type 2 diabetes mellitus with diabetic mononeuropathy, without long-term current use of insulin ([facility]) Check glucose one to four times daily as needed 1 Each 0 08/09/2022 Active Metoclopramide HCl 10 MG Oral Tablet (Reglan) 1 Tablet. 0 06/07/2023 Active Ondansetron HCl 4 MG Oral Tablet Take 1 Tablet by mouth every 8 hours as needed for Nausea. 20 Tablet 2 06/10/2023 Active Ketoconazole 2 % External Shampoo (Nizoral) Lather into scalp for 5 minutes. Rinse over body and then wash off. Do this 3-4 times per week 120 mL 11 09/19/2023 Active Ketoconazole 2 % External CreamIndications:Tin ea corporis Apply topically to affected area 2 times a day. 90 g 5 09/26/2023 Active OneTouch Verio In Vitro Strip (Glucose Blood) Use up to 4 times a day E11.9 100 Strip 11 09/26/2023 Active busPIRone HCl 5 MG Oral Tablet (Buspar)Indications: Anxiety state Take 1 Tablet by mouth in the morning and 1 Tablet before bedtime. 60 Tablet 3 09/26/2023 Active Losartan Potassium 50 MG Oral Tablet (Cozaar) Take 1 Tablet by mouth in the morning. 30 Tablet 5 09/26/2023 Active Aspirin 81 MG Oral Tablet Delayed Release (Aspirin Low Dose)Indications:His tory of embolic stroke Take 1 Tablet by mouth in the morning. 30 Tablet 11 09/26/2023 Active Atorvastatin Calcium 40 MG Oral Tablet (Lipitor) Take 1 Tablet by mouth every evening. 30 Tablet 11 09/26/2023 Active Pantoprazole Sodium 40 MG Oral Tablet Delayed Release (Protonix) Take 1 Tablet by mouth in the morning. 30 Tablet 5 09/26/2023 Active Nicotine 21 MG/24HR Transdermal Patch 24 Hour (Nicoderm CQ) Place 1 Patch over 24 hours topically on the skin in the morning. On upper body/upper arm, change once a day for 6 weeks.. 28 Patch 0 10/18/2023 Active metFORMIN HCl ER 500 MG Oral Tablet Extended Release 24 Hour (Glucophage XR)Indications:Type 2 diabetes mellitus with diabetic mononeuropathy, without long-term current use of insulin ([facility]) Take 4 Tablets by mouth in the morning. 360 Tablet 1 10/31/2023 Active PARoxetine HCl 30 MG Oral Tablet (Paxil) take 1 tablet by mouth IN THE MORNING 30 Tablet 11 10/31/2023 Active Dexcom G7 SensorIndications:Ty pe 2 diabetes mellitus with diabetic mononeuropathy, without long-term current use of insulin (HCC) Apply one sensor to the skin for 10 days. After 10 days, remove the old sensor and apply new sensor. 3 Each 5 11/15/2023 Active Ozempic (0.25 or 0.5 MG/DOSE) 2 MG/3ML Solution Pen-injector (Semaglutide(0.25 or 0.5MG/DOS))Indicatio ns:Type 2 diabetes mellitus with diabetic mononeuropathy, without long-term current use of insulin (HCC) Inject 0.25 mg under the skin once weekly for 4 weeks, then increase to 0.5 mg once weekly 3 mL 2 11/17/2023 Active documented as of this encounter (statuses as of 11/17/2023) Active Problems Problem Noted Date Diagnosed Date BPH with obstruction/lower urinary tract symptom s 08/12/2023 Essential (primary) hypertension 08/12/2023 Well adult exam 07/03/2023 Overview: 04/15 Zio- + SVT eps. Brief. 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 To ENT. Bipolar disorder 06/23/2022 Type 2 diabetes mellitus wit h diabetic mononeuropathy, without long-term current use of insulin 06/23/2022 Personal history of alcoholism 06/23/2022 documented as of this encounter (statuses as of 11/17/2023) Immunizations Name Administration Dates Next Due COVID-19 mRNA, LNP-s, No Pre serve, 2-Dose Series (Moderna) 02/23/2021,01/19/2021 COVID-19, MRNA-LNP, 23-24, P F, 30 MCG/0.3 mL, 12 YRS AND ABOVE, IM [facility] 08/04/2023 COVID-19, mRNA, LNP-s, PF, B ooster, 100mcg/0.5mg (Moderna) 05/10/2022,09/11/2021 Covid-19, Mrna, Lnp-s, Pf, B ivalent, 30 Mcg, IM, 12 yrs and above (Pfizer) 07/19/2022 DTaP Dipth/Tet/Acell Pertussis (Infanrix), Peds 03/11/2005 Pneumococcal Conjugate Vaccine, 20-valent (Prevn ar20) 06/24/2023 Pneumococcal Polysaccharide PPV23 (Pneumovax) ,07/10/2010 Seasonal Influenza, PF, 6 M & above, IM , (FluLaval or Fluzone) 06/24/2023,08/09/2022 TDAP (age 10 and older)(Boostrix) 06/24/2023 Zoster Vaccine Recombinant (Shingrix) 08/21/2022 ,05/10/2022 documented as of this encounter Social History Tobacco Use Types Packs/Day Years Used Date Smoking Tobacco: Former Cigarettes 0.5 S tarted: 1983 Pipe Smokeless Tobacco: Never Comments:nicotine gum, pouch es Quit Nov 2022 Alcohol Use Standard Drinks/Week Comments Not Currently 0 (1 standard drink = 0.6 oz pure alcohol) quit years ago. hx alcoholism. Sex and Gender Information Value Date Recorded Sex Assigned at Not on file Gender Identity Not on file Sexual Orientation Not on file Job Start Date Occupation Industry Not on file Not on file Not on file documented as of this encounter Plan of Treatment Upcoming Encounters Date Type Department Care Team (Late st Contact Info) Description 11/24/2023 8:30 AM EST Imaging Radiology [facility] [address] [address] 12/09/2023 8:30 AM EST Office Visit Otolaryngology [facility] [address] [address] Kendall Armstrong DO [address] [place] [address] 12/13/2023 2:20 PM EST Pharmacy Pharmacy, [facility] [address] [address] [facility] [address] [place] [address] 01/05/2024 9:20 AM EDT [facility] [address] [place] [id number] Rob Chisholm MD [address] [place] [address] 01/12/2024 12:30 PM EDT Office Visit Dermatology, Flako Nguyen [address] [place] [address] [place] [id number] Carlene Lorenzo PA-C [address] [address] [place] [address] Pending Results Name Type Priority Associated Diagnoses Date /Time CHEMISTRY-OUTSIDE Lab Routine 024 OUTSIDE LAB-CORONAVIRUS (COVID-19) Lab Routine 10/25/2023 Health Maintenance Due Date Last Done Comments Hepatitis B (1 of 3 - 3-dose series) 1967 Depression Screening 1979 Cologuard 2012 Colonoscopy 2012 Sigmoidoscopy 2012 Diabetic Foot Exam 08/09/2023 08/09/2022 Diabetic Eye Exam 11/30/2023 11/30/2022 Albumin/Creatinine Ratio 02/26/2024 023, 12/30/2022, 11/19/2022, Additional history exists Colorectal Cancer Screening 03/28/2024 Fecal Occult Blood Test 03/28/2024 03/28/2023 HbA1c 05/09/2024 11/09/2023, 0 05/2024, 06/15/2023, Additional history exists GFR 11/09/2024 11/09/2023, 0 05/2024, 06/15/2023, Additional history exists Lipid Panel 02/26/2028 02/25/2023, 06/25/2022 DTaP,Tdap,and Td Vaccines (3 - Td or Tdap) 06/24/2033 06/24/2023, 03/11/2005 Zoster Vaccines Completed 08/21/2022, 05/10/2022 Influenza Vaccine (FLU shot) Completed 06/24/2023, 08/09/2022 Pneumococcal Vaccine: Pediatrics (0 to 5 Years) and At-Risk Patients (6 to 64 Years) Completed 06/24/2023, 05/10/2022, 07/10/2010 COVID-19 Vaccine Completed 08/04/2023, , 05/10/2022, Additional history exists GARDASIL-HPV IMMUNIZATION SERIES Aged Out No longer eligible based on patient's age to complete this topic MENINGOCOCCAL (MENACTRA/MENVEO) Aged Out No longer eligible based on patient's age to complete this topic documented as of this encounter Medical Devices Not on filedocumented as of this encounter Care Teams Interline Clerk Relationship Specialty Start Date End Date Rob Chisholm MD [address] [place] [address] PCP - General Family Medicine 06/23/22 documented as of this encounter
--- OUTSIDE RECORDS SUMMARY | 2023-11-24 15:24 | External Medical Summary | Summary of Care ---
Author Name Unknown Organization [facility] Address [address] [place] [address] Phone [phone] Care Team Providers Care Tufting Machine Operator Single Needle Name Role Phone Rob Chisholm MD Primary Care Provider + Reason for Visit * Reason Onset Date Comments Pre Cert/Prior Auth 11/16/2023 Encounter Details Date Type Department Care Team (Late st Contact Info) Description 11/16/2023 Telephone Family Practice [facility] [address] [place] [address] Rob Chisholm MD [address] [place] [address] Pre Cert/Prior Auth Allergies No known active allergiesdocumented as of this encounter (statuses as of 11/17/2023) Medications Medication Sig Dispensed Refills Start Date End Date Status OneTouch Ultra 2 w/Device KitIndications:Typ e 2 diabetes mellitus with diabetic mononeuropathy, without long-term current use of insulin ([facility]) Check glucose one to four times daily as needed 1 Each 0 08/09/2022 Active OneTouch UltraSoft LancetsIndications :Type 2 diabetes mellitus with diabetic mononeuropathy, without long-term current use of insulin (HCC) Check glucose one to four times daily as needed 100 Each 11 08/09/2022 Active OneTouch Ultra Blue In Vitro Strip (Glucose Blood)Indications: Type 2 diabetes mellitus with diabetic mononeuropathy, without long-term current use of insulin (HCC) Check glucose one to four times daily as needed 100 Strip 11 08/09/2022 Active OneTouch Delica Lancing DevIndications:Typ e 2 diabetes mellitus with diabetic mononeuropathy, without long-term current use of insulin ([facility]) Check glucose one to four times daily [...] 11 09/19/2023 Active Ketoconazole 2 % External CreamIndications:T inea corporis Apply topically to affected area 2 times a day. 90 g 5 09/26/2023 Active OneTouch Verio In Vitro Strip (Glucose Blood) Use up to 4 times a day E11.9 100 Strip 11 09/26/2023 Active busPIRone HCl 5 MG Oral Tablet (Buspar)Indication s:Anxiety state Take 1 Tablet by mouth in the morning and 1 Tablet before bedtime. 60 Tablet 3 09/26/2023 Active Losartan Potassium 50 MG Oral Tablet (Cozaar) Take 1 Tablet by mouth in the morning. 30 Tablet 5 09/26/2023 Active Aspirin 81 MG Oral Tablet Delayed Release (Aspirin Low Dose)Indications:H istory of embolic stroke Take 1 Tablet by [...] Oral Tablet Extended Release 24 Hour (Glucophage XR)Indications:Typ e 2 diabetes mellitus with diabetic mononeuropathy, without long-term current use of insulin (HCC) Take 4 Tablets by mouth in the morning. 360 Tablet 1 10/31/2023 Active PARoxetine HCl 30 MG Oral Tablet (Paxil) take 1 tablet by mouth IN THE MORNING 30 Tablet 11 10/31/2023 Active Dexcom G7 SensorIndications: Type 2 diabetes mellitus with diabetic mononeuropathy, without long-term current use of insulin (HCC) Apply one sensor to the skin for 10 days. After 10 days, remove the old sensor and apply new sensor. 3 Each 5 11/15/2023 Active Ozempic (0.25 or 0.5 MG/DOSE) 2 MG/3ML Solution Pen-injector (Semaglutide(0.25 or 0.5MG/DOS))Indicat ions:Type 2 diabetes mellitus with diabetic mononeuropathy, without long-term current use of insulin (HCC) Inject 0.25 mg under the skin once weekly for 4 weeks, then increase to 0.5 mg once weekly 3 mL 2 11/17/2023 Active Mounjaro 2.5 MG/0.5ML Subcutaneous Solution Pen-injector (Tirzepatide)Indic ations:Type 2 diabetes mellitus with diabetic mononeuropathy, without long-term current use of insulin (HCC) Inject 2.5 mg under the skin once a week. Take for four weeks, then switch to the 5mg pen. 8 mL 1 11/15/2023 4 Discontinued Mounjaro 5 MG/0.5ML Subcutaneous Solution Pen-injector (Tirzepatide)Indic ations:Type 2 diabetes mellitus with diabetic mononeuropathy, without long-term current use of insulin (HCC) Inject 5 mg under the skin once a week. Do not start taking until after taking the 2.5mg dose for four weeks. 3 mL 1 11/15/2023 4 Discontinued documented as of this encounter (statuses as [...] MCG/0.3 mL, 12 YRS AND ABOVE, IM ([employer]-ComirnatApiFix) 08/04/2023 COVID-19, mRNA, LNP-s, PF, B ooster, [...] on file documented as of this encounter Miscellaneous Notes * Telephone Encounter - Anali Denson RPh - 11/17/2023 9:50 AM EST PC to pt to advise and clinical mental health counselor on ozempic. Thank you, Anali Denson PharmD Clinical Pharmacist [facility] Clinical Pharmacy Services ([facility]) (formerly [employer]) [phone] 11/17/2023, 9:50 AM * Telephone Encounter - Nkechi Mitchell christian education director - 11/17/2023 9:38 AM EST Patients insurance would like to inform the office that ozempic is no review needed test claim paid Thank you for your assistance Nkechi Mitchell Tassel Maker II [facility] Clinical Pharmacy Services ([facility]) ([facility]) 11/17/2023,9:38 AM * Addendum Note - Yue Torrez CRNP - 11/17/2023 8:22 AM ESTAddended by: YUE TORREZ on: 11/17/2023 08:22 AM Modules accepted: Orders * Telephone Encounter - Yue Torrez CRNP - 11/17/2023 8:22 AM EST Ozempic signed. Please notify patient when approved * Addendum Note - Anali Denson RPh - 11/16/2023 4:13 PM ESTAddended by: ANALI DENSON on: 11/16/2023 04:13 PM Modules accepted: Orders * Telephone Encounter - Anali Denson [facility] - 11/16/2023 4:09 PM EST Rx is pended for alternative medication that is covered (insurance does not cover Mounjaro). Pleasesign if agreeable and route back to me so I can advise patient. Pending Prescriptions: Disp Refills Ozempic (0.25 or 0.5 MG/DOSE) 2 MG/3ML So*3 mL 2 Sig: Inject 0.25 mg under the skin once weekly for 4 weeks, then increase to 0.5 mg once weekly Thank you, Anali Denson PharmD Clinical Pharmacist [facility] ([facility]) (formerly [employer]) [phone] 11/16/2023, 4:10 PM * Telephone Encounter - Mil Wong CPhT - 11/16/2023 3:57 PM EST This is a new [place] request. Upon review of this prior authorization request, I verified this request is appropriate. This is prescribed by a department for which [facility] is authorized to review prior authorizations This is not a duplicate encounter regarding the same prior authorization The patient is planning to use insurance The insurance information listed in previous note is correct and the plan that is requiring prior authorization The insurance does not cover either brand or generic forms of this script as written without prior authorization The insurance does not cover any NDCs of this script without prior authorization RX Estimate tool is unable to determine coverage of requested script Of note, there is nothing currently pending in [facility] for this request. Please advise how to proceed. Thank you, Augusto Wong (teacher industrial arts) Tassel Maker III [facility] ([facility]) (formerly [employer]) 11/16/2023, 3:57 PM * Telephone Encounter - Linda Watson PHARM Tech - 11/16/2023 2:28 PM EST Patient calling to inform doctor that the patient's insurance will not pay for this medication without a completed prior authorization. Did confirm this information with the pharmacy. Pt's current insurance information is as follows: Patient name: Román Garcia ID number: [id number] BIN number: [id number] PCN number: MCDG Group number: N/A Subscriber name: Román Garcia Primary or Secondary Insurance:Primary Medication: Mounjaro 2.5 MG/0.5ML Subcutaneous Solution Pen-injector (Tirzepatide) and Mounjaro 5 MG/0.5ML Subcutaneous Solution Pen-injector (Tirzepatide) Reason for Request: Prior Authorization Pharmacy and phone number: [facility] [address] [phone] Rx plan and phone number: [employer] [facility] [phone] Is this a new medication for the patient? Yes What alternative medications does the pharmacy have in stock?: n/a Thank you, Linda Watson Tub Washer I [facility] ([facility]) (Former[facility]) 11/16/2023,2:28 PM documented in this encounter Plan of Treatment Upcoming Encounters Date Type Department Care Team ([facility] st Contact Info) Description 11/24/2023 8:30 AM EST Imaging Radiology [facility] [address] [facility] [place] [address] 12/09/2023 8:30 AM EST Office Visit Otolaryngology [facility] [address] [place] [address] Kendall Armstrong DO [address] [place] [address] 12/13/2023 2:20 PM EST Pharmacy Pharmacy, [facility] [address] [place] [address] [facility] [address] [place] [place] [address] 01/05/2024 9:20 AM EDT Office Visit Family Practice [facility] [address] [place] [address] Rob Chisholm MD [address] [place] [address] 01/12/2024 12:30 PM EDT Office Visit Dermatology, JoannaFlako Hoffman [address] [place] [address] Carlene Lorenzo PA-C [address] [place] [address] [place] [address] Health Maintenance Due Date Last Done Comments Hepatitis B (1 of 3 - 3-dose series) 1967 Depression Screening 1979 Cologuard 2012 Colonoscopy 2012 Sigmoidoscopy 2012 Diabetic Foot Exam 08/09/2023 08/09/2022 Diabetic Eye Exam 11/30/2023 11/30/2022 Albumin/Creatinine Ratio 02/26/2024 023, 12/30/2022, 11/19/2022, Additional history exists Colorectal Cancer Screening 03/28/2024 Fecal Occult Blood Test 03/28/2024 03/28/2023 HbA1c 05/09/2024 11/09/2023, 01/0 05/2024, 06/15/2023, Additional history exists GFR 11/09/2024 11/09/2023, 01/0 05/2024, 06/15/2023, Additional history exists Lipid Panel [...] Not on filedocumented as of this encounter Visit Diagnoses Diagnosis Type 2 diabetes mellitus with diabetic mononeuropathy, without long-term current use of insulin (HCC) documented in this encounter Care Teams Tufting Machine Operator Single Needle Relationship Specialty Start Date End Date Rob Chisholm MD [address] [address] PCP - General Family Medicine 06/23/22 documented as of this encounter
--- OUTSIDE RECORDS SUMMARY | 2023-11-24 15:24 | External Medical Summary | Summary of Care ---
Author Name Unknown Organization [facility] Address [address] [place] [address] Phone [phone] Care Team Providers Care Checker/Stocker Name Role Phone Rob Chisholm MD Primary Care Provider + Reason for Visit * Reason Onset Date Comments Pre Cert/Prior Auth 11/16/2023 Encounter Details Date Type Department Care Team (Late st Contact Info) Description 11/16/2023 Telephone Family Practice [facility] [address] [place] [address] Rob Chisholm MD [address] [facility] [place] [address] Pre Cert/Prior Auth Allergies No known active allergiesdocumented as of this encounter (statuses as of 11/17/2023) Medications Medication Sig Dispensed Refills Start Date End Date Status OneTouch Ultra 2 w/Device KitIndications:Typ e 2 diabetes mellitus with diabetic mononeuropathy, without long-term current use of insulin ([facility]) Check glucose one to four [...] without long-term current use of insulin ([facility]) Check glucose one to four [...] MCG/0.3 mL, 12 YRS AND ABOVE, IM ([employer]Comirnat[employer]soft) 08/04/2023 COVID-19, mRNA, LNP-s, PF, B ooster, [...] as of this encounter Miscellaneous Notes * Addendum Note - Yue Torrez CRNP - 11/17/2023 8:22 AM ESTAddended by: YUE TORREZ on: 11/17/2023 08:22 AM Modules accepted: Orders * Telephone Encounter - Yue Torrez CRNP - 11/17/2023 8:22 AM EST Ozempic signed. Please notify patient when approved * Addendum Note - Anali Denson RP - 11/16/2023 4:13 PM ESTAddended by: ANALI DENSON on: 11/16/2023 04:13 PM Modules accepted: Orders * Telephone Encounter - Anali Denson [facility] - 11/16/2023 4:09 PM EST [...] 0.5 mg once weekly Thank you, Anali Denson, PharmD Clinical Pharmacist [facility] ([facility] [phone] 11/16/2023, 4:10 PM * Telephone Encounter - Mil Wong CPhT - 11/16/2023 3:57 PM EST This is a new PA request. Upon review of this prior authorization request, I verified this request is appropriate. This is prescribed by a department for which [facility] is authorized to review prior authorizations This [...] note, there is nothing currently pending in Center for this request. Please advise how to proceed. Thank you, Augusto Wong ([facility]) Supervisor Adult Education III [facility] ([facility]) (formerly [facility]) 11/16/2023, 3:57 PM * Telephone Encounter - Linda Watson PHARM Tech - 11/16/2023 2:28 PM EST Patient calling to inform doctor that the patient's insurance will not pay for this medication without a completed prior authorization. Did confirm this information with the pharmacy. Pt's current insurance information is as follows: Patient name: Román Garcia ID number: [id number] BIN number: [id number] PCN number: MCDG Group number: N/A Subscriber name: Román Garcia Primary or Secondary Insurance:Primary Medication: Mounjaro 2.5 MG/0.5ML Subcutaneous Solution Pen-injector (Tirzepatide) and Mounjaro 5 MG/0.5ML Subcutaneous Solution Pen-injector (Tirzepatide) Reason for Request: Prior Authorization Pharmacy and phone number: [facility] [address] [place] [address] [phone] Rx plan and phone number: [facility] [phone] Is this a new medication for the patient? Yes What alternative medications does the pharmacy have in stock?: n/a Thank you, Linda Watson Clay Maker I [facility] ([facility]) (Former[facility]) 11/16/2023,2:28 PM documented in this encounter Plan of Treatment Upcoming Encounters Date Type Department Care Team (Late st Contact Info) Description 11/24/2023 8:30 AM EST Imaging Radiology [facility] [address] [place] [address] 12/09/2023 8:30 AM EST Office Visit Otolaryngology [facility] [address] [place] [address] Kendall Armstrong DO [address] [place] [address] 12/13/2023 2:20 PM EST Pharmacy Pharmacy, [facility] [address] [place] [address] [place] [address] [place] [address] 01/05/2024 9:20 AM EDT Office Visit Family Practice [facility] [address] [place] [address] Rob Chisholm MD [address] [place] [address] 01/12/2024 12:30 PM EDT Office Visit Dermatology, Flako Nguyen [address] [place] [address] [place] [address] Carlene Lorenzo PA-C [address] [place] [address] [place] [address] Health Maintenance Due Date Last Done Comments Hepatitis B (1 of 3 - 3-dose series) 1967 Depression Screening 1979 Cologuard 2012 Colonoscopy 2012 Sigmoidoscopy 2012 Diabetic Foot Exam 08/09/2023 08/09/2022 Diabetic Eye Exam 11/30/2023 11/30/2022 Albumin/Creatinine Ratio 02/26/2024 023, 12/30/2022, 11/19/2022, Additional history exists Colorectal Cancer Screening 03/28/2024 Fecal Occult Blood Test 03/28/2024 03/28/2023 HbA1c 05/09/2024 11/09/2023, /0 05/2024, 06/15/2023, Additional history exists GFR 11/09/2024 [...] (HCC) documented in this encounter Care Teams Checker/Stocker Relationship Specialty Start Date End Date Rob Chisholm MD [address] [place] [address] PCP - General Family Medicine 06/23/22 documented as of this encounter
--- OUTSIDE RECORDS SUMMARY | 2023-11-24 15:24 | External Medical Summary | Summary of Care ---
Author Name Unknown Organization [facility] Address [address] [place] [address] Phone [phone] Care Team Providers Care Dashboard Developer Name Role Phone Rob Chisholm MD Primary Care Provider + Reason for Visit * Reason Onset Date Comments Advice 11/16/2023 Encounter Details Date Type Department Care Team (Late st Contact Info) Description 11/16/2023 Telephone Family Practice [facility] [address] [place] [place] [address] Rob Chisholm MD [address] [facility] [place] [address] Advice Allergies No known active allergiesdocumented as of this encounter (statuses as of 11/18/2023) Medications Medication Sig Dispensed Refills Start Date End Date Status OneTouch Ultra 2 w/Device KitIndications:Typ e 2 diabetes mellitus with diabetic mononeuropathy, without long-term current use of insulin ([facility]) Check glucose one to four [...] mononeuropathy, without long-term current use of insulin ([facility]) Check glucose one to four [...] mononeuropathy, without long-term current use of insulin ([facility]) Take 4 Tablets by mouth [...] new sensor. 3 Each 5 11/15/2023 Active Mounjaro 2.5 MG/0.5ML Subcutaneous Solution Pen-injector [...] as of this encounter (statuses as of 11/18/2023) Active Problems Problem Noted Date Diagnosed Date [...] as of this encounter (statuses as of 11/18/2023) Immunizations Name Administration Dates Next Due COVID-19 mRNA, LNP-s, No Pre serve, 2-Dose Series (Moderna) 02/23/2021,01/19/2021 COVID-19, MRNA-LNP, 23-24, P F, 30 MCG/0.3 mL, 12 YRS AND ABOVE, IM ([employer]-Comirnaty) 08/04/2023 COVID-19, mRNA, LNP-s, PF, B ooster, [...] encounter Miscellaneous Notes * Telephone Encounter - Blanche Vasquez CPhT - 11/18/2023 10:30 AM EST Looks like pt has been prescribed Ozempic Thank you, Blanche Vasquez CPhT Director [place] Interpretive Ranger [facility] ([facility]) 11/18/2023,10:31 AM * Telephone Encounter - Bry Schmidt [facility] - 11/16/2023 2:30 PM EST Spoke with patient and advised ok to continue Januvia until GLP-1 is approved. Patient understands and still has tablets leftover. We also discussed prior auth. Patient asked for PA to be marked as urgent because he is not doing well with his diabetes. Forwarding to [place] wheeler to begin Mounjaro prior auth step one. Thank You, Bry Schmidt, Pharm-D Clinical Pharmacist [facility] ([facility]) [phone] 11/16/2023, 2:35 PM * Telephone Encounter - Linda Watson PHARM Tech - 11/16/2023 2:19 PM EST Pt is calling regarding SITagliptin Phosphate 100 MG Oral Tablet (Januvia) (Discontinued) . Provider prescribed Mounjaro for patient and discontinued Sitagliptin. Pt needs a Prior authorization for Mounjaro. Should Pt continue to take Sitagliptin until Mounjaro is approved? Warm transfer to [facility] Thank you, Linda Watson Director On Air I [facility] ([facility]) ([facility]) 11/16/2023,2:24 PM documented in this encounter Plan of Treatment Upcoming Encounters Date Type Department Care Team (Late st Contact Info) Description 11/24/2023 8:30 AM EST Imaging Radiology [facility] [address] [facility] [place] [address] 12/09/2023 8:30 AM EST Office Visit Otolaryngology [facility] [address] [place] [address] Kendall Armstrong, DO [address] [facility] [place] [address] 12/13/2023 2:20 PM EST Pharmacy Pharmacy, [facility] [address] [place] [address] [facility] [address] [place] [address] 01/05/2024 9:20 AM EDT Office Visit Family Practice [facility] [address] [place] [address] Rob Chisholm MD [address] [place] [address] 01/12/2024 12:30 PM EDT Office Visit Dermatology, Flako Nguyen [address] [address] [place] [address] Carlene Lorenzo PA-C [address] [place] [address] [place] [address] Health Maintenance Due Date Last Done Comments Hepatitis B (1 of 3 - 3-dose series) 1967 Depression Screening 1979 Cologuard 2012 Colonoscopy 2012 Sigmoidoscopy 2012 Diabetic Foot Exam 08/09/2023 08/09/2022 Diabetic Eye Exam 11/30/2023 11/30/2022 Albumin/Creatinine Ratio 02/26/2024 023, 12/30/2022, 11/19/2022, Additional history exists Colorectal Cancer Screening 03/28/2024 Fecal Occult Blood Test 03/28/2024 03/28/2023 HbA1c 05/09/2024 11/09/2023, 05/2024, 06/15/2023, Additional history exists GFR 11/09/2024 11/09/2023, 05/2024, 10/25/2023, Additional history exists Lipid Panel 02/26/2028 02/25/2023, [...] filedocumented as of this encounter Care Teams Dashboard Developer Relationship Specialty Start Date End Date Rob Chisholm MD [address] [place] [address] PCP - General Family Medicine 06/23/22 documented as of this encounter
--- OUTSIDE RECORDS SUMMARY | 2023-11-24 15:24 | External Medical Summary | Summary of Care ---
Author Name Unknown Organization [facility] Address [address] [place] [address] Phone [phone] Care Team Providers Care Care Support Representative Name Role Phone Rob Chisholm MD Primary Care Provider + Reason for Visit * Reason Comments Acute Patient presents wit h complaints of vomiting green bile. He states this has been ongoing for 3/4 days. Patient states he feels exhausted, weak, appetite issues, night sweats. He is concerned about his blood sugar. He is concerned he isn't using ozempic correctly. Patient states that this morning his vomit looked like coffee grounds. Encounter Details Date Type Department Care Team (Late st Contact Info) Description 11/23/2023 11:00 AM EST Office Visit General Internal Medicine [facility] [address] [place] [address] Cb Phipps MD [address] [place] [address] Nausea and vomiting, unspecified vomiting type*; Type 2 diabetes mellitus with diabetic mononeuropathy, without long-term current use of insulin (HCC) Allergies No known active allergiesdocumented as of this encounter (statuses as of 11/23/2023) Medications Medication Sig Dispensed Refills Start Date End Date Status OneTouch Ultra 2 w/Device KitIndications:Type 2 diabetes mellitus with diabetic mononeuropathy, without long-term current use of insulin (HCC) Check glucose one to four times daily as needed 1 Each 0 08/09/2022 Active Additional Information Patient not taking.Reported on 11/23/2023 OneTouch UltraSoft LancetsIndications: Type 2 diabetes mellitus with diabetic mononeuropathy, without long-term current use of insulin ([facility]) Check glucose one to four times daily as needed 100 Each 11 08/09/2022 Active Additional Information Patient not taking.Reported on 11/23/2023 OneTouch Ultra Blue In Vitro Strip (Glucose Blood)Indications:T ype 2 diabetes mellitus with diabetic mononeuropathy, without long-term current use of insulin ([facility]) Check glucose one to four times daily as needed 100 Strip 11 08/09/2022 Active Additional Information Patient not taking.Reported on 11/23/2023 OneTouch Delica Lancing DevIndications:Type 2 diabetes mellitus with diabetic mononeuropathy, without long-term current use of insulin ([facility]) Check glucose one to four times daily as needed 1 Each 0 08/09/2022 Active Additional Information Patient not taking.Reported on 11/23/2023 Metoclopramide HCl 10 MG Oral Tablet (Reglan) [...] 11 09/19/2023 Active Ketoconazole 2 % External CreamIndications:Ti arminda corporis Apply topically to affected area 2 times a day. 90 g 5 09/26/2023 Active Additional Information Patient not taking.Reported on 11/23/2023 OneTouch Verio In Vitro Strip (Glucose Blood) Use up to 4 times a day E11.9 100 Strip 11 09/26/2023 Active Additional Information Patient not taking.Reported on 11/23/2023 busPIRone HCl 5 MG Oral Tablet (Buspar)Indications :Anxiety state Take 1 Tablet by mouth in the morning and 1 Tablet before bedtime. 60 Tablet 3 09/26/2023 Active Losartan Potassium 50 MG Oral Tablet (Cozaar) Take 1 Tablet by mouth in the morning. 30 Tablet 5 09/26/2023 Active Aspirin 81 MG Oral Tablet Delayed Release (Aspirin Low Dose)Indications:Hi story of embolic stroke Take 1 Tablet by [...] 30 Tablet 11 10/31/2023 Active Dexcom G7 SensorIndications:T ype 2 diabetes mellitus with diabetic mononeuropathy, without long-term current use of insulin (HCC) Apply one sensor to the skin for 10 days. After 10 days, remove the old sensor and apply new sensor. 3 Each 5 11/15/2023 Active Ozempic (0.25 or 0.5 MG/DOSE) 2 MG/3ML Solution Pen-injector (Semaglutide(0.25 or 0.5MG/DOS))Indicati ons:Type 2 diabetes mellitus with diabetic mononeuropathy, without long-term current use of insulin (HCC) Inject 0.25 mg under the skin once weekly for 4 weeks, then increase to 0.5 mg once weekly 3 mL 2 11/17/2023 Active documented as of this encounter (statuses as of 11/23/2023) Active Problems Problem Noted Date Diagnosed Date [...] as of this encounter (statuses as of 11/23/2023) Immunizations Name Administration Dates Next Due COVID-19 mRNA, LNP-s, No Pre serve, 2-Dose Series (Moderna) 02/23/2021,01/19/2021 COVID-19, MRNA-LNP, 23-24, P F, 30 MCG/0.3 mL, 12 YRS AND ABOVE, IM (Code Fever-Comirnaty) 08/04/2023 COVID-19, mRNA, LNP-s, PF, B ooster, 100mcg/0.5mg (Moderna) 05/10/2022,09/11/2021 Covid-19, Mrna, Lnp-s, Pf, B ivalent, 30 Mcg, IM, 12 yrs and above ([employer] 07/19/2022 DTaP Dipth/Tet/Acell Pertussis (Infanrix), Peds 03/11/2005 [...] S tarted: 1983 Pipe Smokeless Tobacco: Never Tobacco Cessation:Counseling Given: Not Answered Comments:nicotine gum, pouches Quit Nov 2022 Alcohol Use Standard Drinks/Week [...] on file documented as of this encounter Last Filed Vital Signs Vital Sign Reading Time Taken Comments Blood Pressure 116/90 11/23/2023 10:44 AM EST Pulse 111 11/23/2023 10:44 AM EST Temperature 35.7 C (96.3 F) 11/23/2023 10:[address] Respiratory Rate - - Oxygen Saturation 100% 11/23/2023 10:44 AM EST Inhaled Oxygen Concentration - - Weight 66 kg (145 lb 9.6 oz) 11/23/2023 10:44 AM EST Height 172.7 cm (5' 8") 11/23/2023 10:44 AM EST Body Mass Index 22.14 11/23/2023 10:44 AM EST documented in this encounter Progress Notes * Cb Phipps MD - 11/23/2023 11:10 AM EST Chief Complaint Patient presents with Acute Patient presents with complaints of vomiting green bile. He states this has been ongoing for 3/4 days. Patient states he feels exhausted, weak, appetite issues, night sweats. He is concerned about his blood sugar. He is concerned he isn't using ozempic correctly. Patient states that this morning his vomit looked like coffee grounds. SUBJECTIVE: Román Garcia is a 58 year old male with PMH as below who presents for acute. Started ozempic past week, but not sure injected any medicine. For past 3-4 days has had persisted vomiting, trouble keeping anything down. Has abdominal pain, nausea, feels weak, no appetite. Zofran helps. Feels abdomen is painful. Sugars under 100, but now rising >250. He also feels started to vomit coffee ground material this am, was "green bile" before. No fevers, but has sweats, night sweats. Patient Active Problem List Diagnosis Code Bipolar disorder ([facility]) F31.9 Type 2 diabetes mellitus with diabetic mononeuropathy, without long-term current use of insulin (HCC) E11.41 Personal history of alcoholism (HCC) F10.21 Warthin's tumor D11.9 Well adult exam Z00.00 BPH with obstruction/lower urinary tract symptoms N40.1, N13.8 Essential (primary) hypertension I10 Current Outpatient Medications Medication Sig Dispense Refill Ondansetron HCl 4 MG Oral Tablet Take 1 Tablet by mouth every 8 hours as needed for Nausea. 20 Tablet 2 Ketoconazole 2 % External Shampoo (Nizoral) Lather into scalp for 5 minutes. Rinse over body and then wash off. Do this 3-4 times per week 120 mL 11 busPIRone HCl 5 MG Oral Tablet (Buspar) Take 1 Tablet by mouth in the morning and 1 Tablet before bedtime. 60 Tablet 3 Losartan Potassium 50 MG Oral Tablet (Cozaar) Take 1 Tablet by mouth in the morning. 30 Tablet 5 Aspirin 81 MG Oral Tablet Delayed Release (Aspirin Low Dose) Take 1 Tablet by mouth in the morning.30 Tablet 11 Atorvastatin Calcium 40 MG Oral Tablet (Lipitor) Take 1 Tablet by mouth every evening. 30 Tablet 11 Pantoprazole Sodium 40 MG Oral Tablet Delayed Release (Protonix) Take 1 Tablet by mouth in the morning. 30 Tablet 5 Nicotine 21 MG/24HR Transdermal Patch 24 Hour (Nicoderm CQ) Place 1 Patch over 24 hours topically on the skin in the morning. On upper body/upper arm, change once a day for 6 weeks.. 28 Patch 0 metFORMIN HCl ER 500 MG Oral Tablet Extended Release 24 Hour (Glucophage XR) Take 4 Tablets by mouth in the morning. 360 Tablet 1 PARoxetine HCl 30 MG Oral Tablet (Paxil) take 1 tablet by mouth IN THE MORNING 30 Tablet 11 Dexcom G7 Sensor Apply one sensor to the skin for 10 days. After 10 days, remove the old sensor andapply new sensor. 3 Each 5 Ozempic (0.25 or 0.5 MG/DOSE) 2 MG/3ML Solution Pen-injector (Semaglutide(0.25 or 0.5MG/DOS)) Inject 0.25 mg under the skin once weekly for 4 weeks, then increase to 0.5 mg once weekly 3 mL 2 OneTouch Ultra 2 w/Device Kit Check glucose one to four times daily as needed (Patient not taking: Reported on 11/23/2023) 1 Each 0 OneTouch UltraSoft Lancets Check glucose one to four times daily as needed (Patient not taking: Reported on 11/23/2023) 100 Each 11 OneTouch Ultra Blue In Vitro Strip (Glucose Blood) Check glucose one to four times daily as needed (Patient not taking: Reported on 11/23/2023) 100 Strip 11 OneTouch Delica Lancing Dev Check glucose one to four times daily as needed (Patient not taking: Reported on 11/23/2023) 1 Each 0 Metoclopramide HCl 10 MG Oral Tablet (Reglan) 1 Tablet. (Patient not taking: Reported on 11/23/2023) Ketoconazole 2 % External Cream Apply topically to affected area 2 times a day. (Patient not taking: Reported on 11/23/2023) 90 g 5 OneTouch Verio In Vitro Strip (Glucose Blood) Use up to 4 times a day E11.9 (Patient not taking: Reported on 11/23/2023) 100 Strip 11 No current facility-administered medications for this visit. Review of patient's allergies indicates: No Known Allergies Health Maintenance Due Topic Date Due Hepatitis B (1 of 3 - 3-dose series) Never done Depression Screening Never done Diabetic Foot Exam 08/09/2023 Diabetic Eye Exam 11/30/2023 ROS: CONSTITUTIONAL: as per hpi PULMONARY: No cough, sputum, or hemoptysis, No wheezing, No rales, No shortness of breath, and No recent change in breathing CARDIOVASCULAR: No chest pain, No shortness of breath, No dyspnea on exertion, No orthopnea, No paroxysmal nocturnal dyspnea, No edema, No palpitations, and No syncope GASTROINTESTINAL: No blood in stools or black tarry stools, No abdominal bloating or early satiety,and No dysphagia ALL OTHER SYSTEMS NEGATIVE I reviewed social, PMH, PSH, and family history and updated where needed. Social History Socioeconomic History Marital status: Single Spouse name: Not on file Number of children: Not on file Years of education: Not on file Highest education level: Not on file Occupational History Not on file Tobacco Use Smoking status: Former Packs/day: .5 Types: Pipe, Cigarettes Start date: 1983 Smokeless tobacco: Never Tobacco comments: nicotine gum, pouches Quit Nov 2022 Substance and Sexual Activity Alcohol use: Not Currently Comment: quit years ago. hx alcoholism. Drug use: Not Currently Types: Marijuana Sexual activity: Not Currently Comment: '11.26 adult kids. no grandkids Other Topics Concern Not on file Social History Narrative Not on file Social Determinants of Health Financial Resource Strain: Not on file Food Insecurity: Not on file Transportation Needs: Not on file Physical Activity: Not on file Stress: Not on file Social Connections: Not on file Intimate Partner Violence: Not on file Housing Stability: Not on file Past Medical History: Diagnosis Date DM type 2, goal HbA1c < 8% (HCC) External hemorrhoid Plantar wart severe Warthin's tumor 02/21/2023 02/16/23 FNA. Past Surgical History: Procedure Laterality Date IR BIOPSY 02/15/2023 NC TONSILLECTOMY & ADENOIDECTOMY LESS THAN AGE 14 1972 Family History Problem Relation Age of Onset Uterine cancer Mother Kidney cancer Father 11/14. Hypertension Sister Lung cancer Grandfather (Maternal) OBJECTIVE: PHYSICAL EXAM: BP 116/90 | Pulse 111 | Temp 35.7 C (96.3 F) (Tympanic) | Ht 1.727 m (5' 8") | Wt 66 kg (145 lb9.6 oz) | SpO2 100% | BMI 22.14 kg/m | BSA 1.78 m General: alert and ill looking Head: Normocephalic, No masses, lesions, or abnormalities Heart: regular rate & rhythm, no murmur, no gallops, and tachycardia Lungs: normal respiratory rate and rhythm, lungs clear to auscultation Abdomen: abdomen soft, normal bowel sounds, no masses or organomegaly, and +tenderness all quadrants I reviewed last gfr, A1c ASSESSMENT: R11.2 Nausea and vomiting, unspecified vomiting type (primary encounter diagnosis) E11.41 Type 2 diabetes mellitus with diabetic mononeuropathy, without long-term current use of insulin ([facility]) PLAN: Nausea and vomiting, unspecified vomiting type (Primary) Ongoing, could be from ozempic, but given persistent, exam, coffee ground, feels needs er for stat labs, ivf, and possible imaging He is agreeable, declines ambulance, wants to drive himself Also need to check gfr, labs as persistent n/v and taking metformin still Report called to [facility] Type 2 diabetes mellitus with diabetic mononeuropathy, without long-term current use of insulin (HCC) Follow Up: Return if symptoms worsen or fail to improve. Cb Phipps MD documented in this encounter Nursing Notes * Maria Elena Esposito MED ASSIST - 11/23/2023 10:49 AM EST Chief Complaint Patient presents with Acute Patient presents with complaints of vomiting green bile. He states this has been ongoing for 3/4 days. Patient states he feels exhausted, weak, appetite issues, night sweats. He is concerned about his blood sugar. He is concerned he isn't using ozempic correctly. Patient states that this morning his vomit looked like coffee grounds. documented in this encounter Plan of Treatment Upcoming Encounters Date Type Department Care Team (Late st Contact Info) Description 11/24/2023 8:30 AM EST Imaging Radiology [facility] [address] [place] [address] 12/09/2023 8:30 AM EST Office Visit Otolaryngology [facility] [address] [place] [address] Kendall Armstrong DO [address] [place] [address] 12/13/2023 2:20 PM EST Pharmacy Pharmacy, [facility] [address] [facility] [place] [address] [facility] [address] [place] [address] 01/05/2024 9:20 AM EDT Office Visit Family Practice [facility] [address] [place] [address] Rob Chisholm MD [address] [place] [address] 01/12/2024 12:30 PM EDT Office Visit Dermatology, Flako Nguyen [address] [place] [address] [place] [address] Carlene Lorenzo PA-C [address] [place] [address] [place] [address] Health Maintenance Due Date Last Done Comments [...] history exists GFR 11/09/2024 11/09/2023, 0 05/2024, 10/25/2023, Additional history exists Lipid Panel [...] as of this encounter Visit Diagnoses Diagnosis Nausea and vomiting, unspecified vomiting type- Primary Type 2 diabetes mellitus with diabetic mononeuropathy, without long-term current use of insulin (HCC) documented in this encounter Care Teams Care Support Representative Relationship Specialty Start Date End Date Rob Chisholm MD [address] [place] [address] PCP - General Family Medicine 06/23/22 documented as of this encounter
--- OUTSIDE RECORDS SUMMARY | 2023-11-24 15:24 | External Medical Summary | Summary of Care ---
Author Name Unknown Organization [facility] Address [address] [place] [facility] [place] [address] Phone [phone] Care Team Providers Care Livestock Buyer Name Role Phone Rob Chisholm MD Primary Care Provider + Encounter Details Date Type Department Care Team (Late st Contact Info) Description 11/17/2023 Orders Only Family Practice [facility] [address] [facility] [place] [address] Rob Chisholm MD [address] [place] [address] Allergies No known active allergiesdocumented as of this encounter (statuses as of 11/17/2023) Medications Medication Sig Dispensed Refills Start Date End Date Status OneTouch Ultra 2 w/Device KitIndications:Type 2 diabetes mellitus with diabetic mononeuropathy, without long-term current use of insulin ([facility]) Check glucose one to four times daily as needed 1 Each 0 08/09/2022 Active OneTouch UltraSoft LancetsIndications:T ype 2 diabetes mellitus with diabetic mononeuropathy, without long-term current use of insulin ([facility]) Check glucose one to four times daily as needed 100 Each 11 08/09/2022 Active OneTouch Ultra Blue In Vitro Strip (Glucose Blood)Indications:Ty pe 2 diabetes mellitus with diabetic mononeuropathy, without long-term current use of insulin ([facility]) Check glucose one to four times daily as needed 100 Strip 11 08/09/2022 Active OneTouch Delica Lancing DevIndications:Type 2 diabetes mellitus with diabetic mononeuropathy, without long-term current use of insulin ([facility]) Check glucose one to four [...] without long-term current use of insulin ([facility]) Take 4 Tablets by mouth in the [...] MCG/0.3 mL, 12 YRS AND ABOVE, IM ([email or web address]) 08/04/2023 COVID-19, mRNA, LNP-s, PF, B ooster, [...] Description 11/24/2023 8:30 AM EST Imaging Radiology [facility] [address] [place] [address] 12/09/2023 8:30 AM EST Office Visit Otolaryngology [facility] [address] [place] [address] Kendall Armstrong DO [address] [place] [address] 12/13/2023 2:20 PM EST Pharmacy Pharmacy, [facility] [address] [place] [address] [address] [facility] [address] [place] [address] 01/05/2024 9:20 AM EDT Office Visit [facility] [address] [place] [address] Rob Chisholm MD [address] [place] [address] 01/12/2024 12:30 PM EDT Office Visit Dermatology, Flako Nguyen [address] [place] [address] [place] [phone] Carlene Lorenzo PA-C [address] [place] [address] [place] [address] Pending Results Name Type Priority Associated Diagnoses Date /Time XR CHEST 1 VIEW Medical Imaging Routine 11/2023 Health Maintenance Due Date Last Done Comments [...] filedocumented as of this encounter Care Teams Livestock Buyer Relationship Specialty Start Date End Date Rob Chisholm MD [address] [place] [address] PCP - General Family Medicine 06/23/22 documented as of this encounter
--- OUTSIDE RECORDS SUMMARY | 2023-11-24 15:24 | External Medical Summary | Summary of Care ---
Author Name Unknown Organization [facility] Address [address] [place] [address] Phone [phone] Care Team Providers Care Psychiatric Clinical Nurse Specialist Name Role Phone Rob Chisholm MD Primary Care Provider + Encounter Details Date Type Department Care Team (Late st Contact Info) Description 10/25/2023 Result Scan Unspecified Department <No scans attached> Allergies No known active allergiesdocumented as of this encounter (statuses as of 11/17/2023) Medications Medication Sig Dispensed Refills Start Date End Date Status OneTouch Ultra 2 w/Device KitIndications:Type 2 diabetes mellitus with diabetic mononeuropathy, without long-term current use of insulin ([facility]) Check glucose one to four times daily as needed 1 Each 0 08/09/2022 Active OneTouch UltraSoft LancetsIndications:T ype 2 diabetes mellitus with diabetic mononeuropathy, without long-term current use of insulin ([facility]) Check glucose one to four times daily as needed 100 Each 11 08/09/2022 Active OneTouch Ultra Blue In Vitro Strip (Glucose Blood)Indications:Ty pe 2 diabetes mellitus with diabetic mononeuropathy, without long-term current use of insulin ([facility]) Check glucose one to four times daily as needed 100 Strip 11 08/09/2022 Active OneTouch Delica Lancing DevIndications:Type 2 diabetes mellitus with diabetic mononeuropathy, without long-term current use of insulin ([facility]) Check glucose one to four times [...] 6 weeks.. 28 Patch 0 10/18/2023 Active documented as of this encounter (statuses [...] Description 11/24/2023 8:30 AM EST Imaging Radiology [facility] [address] [place] [address] 12/09/2023 8:30 AM EST Office Visit Otolaryngology [facility] [address] [place] [address] Kendall Armstrong DO [address] [place] [address] 12/13/2023 2:20 PM EST Pharmacy Pharmacy, [facility] [address] [facility] [place] [address] [address] [facility] [address] [place] [address] 01/05/2024 9:20 AM EDT Office Visit Family Practice [facility] [address] [place] [address] Rob Chisholm MD [address] [place] [address] 01/12/2024 12:30 PM EDT Office Visit Dermatology, Flako Nguyen [address] [place] [address] [place] [address] Carlene Lorenzo PA-C [address] [place] [address] [place] [address] Health Maintenance Due Date Last Done Comments [...] Additional history exists GFR 11/09/2024 11/09/2023, 05/2024, 06/15/2023, Additional history exists Lipid Panel [...] Not on filedocumented as of this encounter Procedures Procedure Name Priority Date/Time Associated Diagnosis Comments OUTSIDE LAB RESULTS 10/25/2023 documented in this encounter Results * OUTSIDE LAB RESULTS (10/25/2023) 10/25/2023 No Physician Data Unknown LABORATORY documented in this encounter Care Teams Psychiatric Clinical Nurse Specialist Relationship Specialty Start Date End Date Rob Chisholm MD [address] [place] [address] PCP - General Family Medicine 06/23/22 documented as of this encounter
--- OUTSIDE RECORDS SUMMARY | 2023-11-24 15:24 | External Medical Summary | Summary of Care ---
Author Name Unknown Organization [facility] Address [address] [place] [address] Phone [phone] Care Team Providers Care Patient Accounts Specialist Name Role Phone Rob Chisholm MD Primary Care Provider + Reason for Visit * Reason Onset Date Comments Pre Cert/Prior Auth 11/16/2023 Encounter Details Date Type Department Care Team (Late st Contact Info) Description 11/16/2023 Telephone Family Practice [facility] [address] [facility] [place] [address] Rob Chisholm MD [address] [place] [address] Pre Cert/Prior Auth Allergies No known active allergiesdocumented as of this encounter (statuses as of 11/17/2023) Medications Medication Sig Dispensed Refills Start Date End Date Status OneTouch Ultra 2 w/Device KitIndications:Typ e 2 diabetes mellitus with diabetic mononeuropathy, without long-term current use of insulin ([facility]) Check glucose one to four times daily [...] mononeuropathy, without long-term current use of insulin ([facility]) Check glucose one to four times daily [...] MCG/0.3 mL, 12 YRS AND ABOVE, IM ([employer]) 08/04/2023 COVID-19, mRNA, LNP-s, PF, B ooster, [...] encounter Miscellaneous Notes * Telephone Encounter - Nkechi Mitchell PHARM Tech - 11/17/2023 9:38 AM EST Patients insurance would like to inform the office that ozempic is no review needed test claim paid Thank you for your assistance Nkechi Mitchell Medicine Aide II [facility] ([facility]) (Formerly [facility]) 11/17/2023,9:38 AM * Addendum Note - Yue [...] Orders * Telephone Encounter - Anali Denson RP - 11/16/2023 4:09 PM EST Rx is [...] PharmD Clinical Pharmacist Centralized Clinical Pharmacy Services ([facility]) (formerly [facility]) [phone] 11/16/2023, 4:10 PM * Telephone Encounter - Mil Wong CPhT - 11/16/2023 3:57 PM EST This is a new PA request. Upon review of this prior authorization request, I verified this request is appropriate. This is prescribed by a department for which [facility] is authorized to review prior authorizations [...] note, there is nothing currently pending in [facility] for this request. Please advise how to proceed. Thank you, Augusto Wong ([facility]) Medicine Aide III [facility] ([facility]) ([facility]) 11/16/2023, 3:57 PM * Telephone Encounter - Linda Watson PHARM Tech - 11/16/2023 2:28 PM EST Patient calling to inform doctor that the patient's insurance will not pay for this medication without a completed prior authorization. Did confirm this information with the pharmacy. Pt's current insurance information is as follows: Patient name: Román Garcia ID number: [id number] BIN number: [id number] PCN number: MCDG Group number: N/A Subscriber name: Román Garcia Primary or Secondary Insurance:Primary Medication: Mounjaro 2.5 MG/0.5ML Subcutaneous Solution Pen-injector (Tirzepatide) and Mounjaro 5 MG/0.5ML Subcutaneous Solution Pen-injector (Tirzepatide) Reason for Request: Prior Authorization Pharmacy and phone number: [facility] [id number] [facility] [phone] Rx plan and phone number: [facility] [phone] Is this a new medication for the patient? Yes What alternative medications does the pharmacy have in stock?: n/a Thank you, Linda Watson Brick Kiln Burner I [facility] ([facility]) (Formerly Tele[facility]) 11/16/2023,2:28 PM documented in this encounter Plan of Treatment Upcoming Encounters Date Type Department Care Team (Late st Contact Info) Description 11/24/2023 8:30 AM EST Imaging Radiology [facility] [address] [place] [address] 12/09/2023 8:30 AM EST Office Visit Otolaryngology [facility] [address] [place] [address] Kendall Armstrong DO [address] [address] 12/13/2023 2:20 PM EST Pharmacy Pharmacy, [facility] [address] [address] [facility] [address] [place] [address] 01/05/2024 9:20 AM EDT Office Visit Family Practice [facility] [address] [address] Rob Chisholm MD [address] [address] 01/12/2024 12:30 PM EDT Office Visit Dermatology, Flako Nguyen [address] [place] [address] Carlene Lorenzo PA-C [address] [place] [address] Health Maintenance Due Date Last Done Comments [...] (HCC) documented in this encounter Care Teams Patient Accounts Specialist Relationship Specialty Start Date End Date Rob Chisholm MD [address] [address] PCP - General Family Medicine 06/23/22 documented as of this encounter
--- OUTSIDE RECORDS SUMMARY | 2023-11-24 15:25 | External Medical Summary | Summary of Care ---
Author Name Unknown Organization [facility] Address [address] [place] [address] Phone [phone] Care Team Providers Care Ballistics Expert Forensic Name Role Phone Rob Chisholm MD Primary Care Provider + Reason for Visit * Reason Onset Date Comments Pre Cert/Prior Auth 11/16/2023 Encounter Details Date Type Department Care Team (Late st Contact Info) Description 11/16/2023 Telephone Family Practice [facility] [address] [place] [place] [address] Rob Chisholm MD [address] [facility] [place] [address] Pre Cert/Prior Auth Allergies No known active allergiesdocumented as of this encounter (statuses as of 11/16/2023) Medications Medication Sig Dispensed Refills Start Date End Date Status OneTouch Ultra 2 w/Device KitIndications:Type 2 diabetes mellitus with diabetic mononeuropathy, without long-term current use of insulin ([facility]) Check glucose one to four times daily as needed 1 Each 0 08/09/2022 Active OneTouch UltraSoft LancetsIndications: Type 2 diabetes mellitus [...] mononeuropathy, without long-term current use of insulin ([facility]) Check glucose one to four [...] Active busPIRone HCl 5 MG Oral Tablet (Buspar)Indications [...] mononeuropathy, without long-term current use of insulin ([facility]) Take 4 Tablets by mouth in the morning. 360 Tablet 1 10/31/2023 Active PARoxetine HCl 30 MG Oral Tablet (Paxil) take 1 tablet by mouth IN THE MORNING 30 Tablet 11 10/31/2023 Active Mounjaro 2.5 MG/0.5ML Subcutaneous Solution Pen-injector (Tirzepatide)Indica tions:Type 2 diabetes mellitus with diabetic mononeuropathy, without long-term current use of insulin (HCC) Inject 2.5 mg under the skin once a week. Take for four weeks, then switch to the 5mg pen. 8 mL 1 11/15/2023 11/14/2024 Active Mounjaro 5 MG/0.5ML Subcutaneous Solution Pen-injector (Tirzepatide)Indica tions:Type 2 diabetes mellitus with diabetic mononeuropathy, without long-term current use of insulin ([facility]) Inject 5 mg under the skin once a week. Do not start taking until after taking the 2.5mg dose for four weeks. 3 mL 1 11/15/2023 11/14/2024 Active Dexcom G7 SensorIndications:T ype 2 diabetes mellitus with diabetic mononeuropathy, without long-term current use of insulin (HCC) Apply one sensor to the skin for 10 days. After 10 days, remove the old sensor and apply new sensor. 3 Each 5 11/15/2023 Active documented as of this encounter (statuses as of 11/16/2023) Active Problems Problem Noted Date Diagnosed Date [...] as of this encounter (statuses as of 11/16/2023) Immunizations Name Administration Dates Next Due COVID-19 [...] encounter Miscellaneous Notes * Addendum Note - Anali Denson RPh - 11/16/2023 4:13 PM ESTAddended by: ANALI DENSON on: 11/16/2023 04:13 PM Modules accepted: Orders * Telephone Encounter - Anali Denson RPh - 11/16/2023 4:09 PM EST Rx is [...] PharmD Clinical Pharmacist Centralized Clinical Pharmacy Services ([facility]) (formerly [facility]) [phone] 11/16/2023, 4:10 PM * Telephone Encounter - Mil Wong CPhT - 11/16/2023 3:57 PM EST This is a new PA request. Upon review of this prior authorization request, I verified this request is appropriate. This is prescribed by a department for which [facility] is authorized to review prior authorizations [...] note, there is nothing currently pending in [facility] for this request. Please advise how to proceed. Thank you, Augusto Wong ([facility]) Barrel Rifler Hook III [facility] ([facility]) ([facility]) 11/16/2023, 3:57 PM * Telephone Encounter - Linda Watson PHARM Tech - 11/16/2023 2:28 PM EST Patient calling to inform doctor that the patient's insurance will not pay for this medication without a completed prior authorization. Did confirm this information with the pharmacy. Pt's current insurance information is as follows: Patient name: Román Garcia ID number: [id number] BIN number: [id number] PCN number: MCDG Group number: N/A Subscriber name: Román Garcia Primary or Secondary Insurance:Primary Medication: Mounjaro 2.5 MG/0.5ML Subcutaneous Solution Pen-injector (Tirzepatide) and Mounjaro 5 MG/0.5ML Subcutaneous Solution Pen-injector (Tirzepatide) Reason for Request: Prior Authorization Pharmacy and phone number: [facility] [address] [facility] [phone] Rx plan and phone number: [employer] [facility] [phone] Is this a new medication for the patient? Yes What alternative medications does the pharmacy have in stock?: n/a Thank you, Linda Watson Automatic Dispenser Mechanic I [facility] ([facility]) (Formerly [facility]) 11/16/2023,2:28 PM documented in this encounter Plan of Treatment Upcoming Encounters Date Type Department Care Team (Late st Contact Info) Description 11/24/2023 8:30 AM EST Imaging Radiology [facility] [address] [place] [address] 12/09/2023 8:30 AM EST Office Visit Otolaryngology [facility] [address] [place] [address] Kendall Armstrong DO [address] [place] [address] 12/13/2023 2:20 PM EST Pharmacy Pharmacy, [facility] [address] [place] [address] [facility] [address] [place] [address] 01/05/2024 9:20 AM EDT Office Visit Family Practice [facility] [address] [address] Rob Chisholm MD [address] [address] 01/12/2024 12:30 PM EDT Office Visit Dermatology, Flako Nguyen [address] [place] [address] Carlene Lorenzo PA-C [address] [place] [address] Health Maintenance Due Date Last Done Comments [...] (HCC) documented in this encounter Care Teams Ballistics Expert Forensic Relationship Specialty Start Date End Date Rob Chisholm MD [address] [address] PCP - General Family Medicine 06/23/22 documented as of this encounter
--- OUTSIDE RECORDS SUMMARY | 2023-11-24 15:25 | External Medical Summary | Summary of Care ---
Author Name Unknown Organization [facility] Address [address] [place] [address] Phone [phone] Care Team Providers Care Paragliding Instructor Name Role Phone Rbo Chisholm MD Primary Care Provider + Reason for Visit * Reason Onset Date Comments Pre Cert/Prior Auth 11/16/2023 Encounter Details Date Type Department Care Team (Late st Contact Info) Description 11/16/2023 Telephone Family Practice [facility] [address] [facility] [place] [address] Rob Chisholm MD [address] [facility] [place] [address] Pre Cert/Prior Auth Allergies No known active allergiesdocumented as of this encounter (statuses as of 11/17/2023) Medications Medication Sig Dispensed Refills Start Date End Date Status OneTouch Ultra 2 w/Device KitIndications:Typ e 2 diabetes mellitus with diabetic mononeuropathy, without long-term current use of insulin ([facility]) Check glucose one to four times [...] mononeuropathy, without long-term current use of insulin ([facility]) Check glucose one to four times [...] MCG/0.3 mL, 12 YRS AND ABOVE, IM ([employer]) 08/04/2023 COVID-19, mRNA, LNP-s, PF, B ooster, [...] Orders * Telephone Encounter - Anali Denson [facility] - 11/16/2023 4:09 PM EST Rx is [...] Pharmacist [facility] ([facility]) ([facility] [phone] 11/16/2023, 4:10 PM * Telephone Encounter - Mil Wong CPhT - 11/16/2023 3:57 PM EST This is a new PA request. Upon review of this prior authorization request, I verified this request is appropriate. This is prescribed by a department for which [facility] is authorized to review prior authorizations This [...] how to proceed. Thank you, Augusto Wong ([facility]) Campus Administrator III Centralized [facility] Pharm[facility] Services ([facility]) (formerly [...] follows: Patient name: Román Garcia ID number: [id number] BIN number: [id number] PCN number: MCDG Group number: N/A Subscriber name: Román Garcia Primary or Secondary Insurance:Primary Medication: Mounjaro 2.5 MG/0.5ML Subcutaneous Solution Pen-injector (Tirzepatide) and Mounjaro 5 MG/0.5ML Subcutaneous Solution Pen-injector (Tirzepatide) Reason for Request: Prior Authorization Pharmacy and phone number: [facility] [address] [place] [address] [phone] Rx plan and phone number: [facility] [facility] [employer] [facility] [phone] Is this a new medication for the patient? Yes What alternative medications does the pharmacy have in stock?: n/a Thank you, Linda Watson Silk Brusher I [facility] ([facility]) (Formerly [facility]pharm[facility]) 11/16/2023,2:28 PM documented in this encounter Plan of Treatment Upcoming Encounters Date Type Department Care Team (Late st Contact Info) Description 11/24/2023 8:30 AM EST Imaging Radiology [facility] [address] [place] [address] 12/09/2023 8:30 AM EST Office Visit Otolaryngology [facility] [address] [place] [address] Kendall Armstrong DO [address] [place] [address] 12/13/2023 2:20 PM EST Pharmacy Pharmacy, [facility] [address] [place] [address] [facility] [address] [place] [address] 01/05/2024 9:20 AM EDT Office Visit Family Practice [facility] [address] [address] Rob Chisholm MD [address] [place] [address] 01/12/2024 12:30 PM EDT Office Visit Dermatology, Flako Nguyen [address] [place] [address] Carlene Lorenzo PA-C [address] [place] [address] Health Maintenance Due Date Last Done Comments [...] (HCC) documented in this encounter Care Teams Paragliding Instructor Relationship Specialty Start Date End Date Rob Chisholm MD [address] [address] PCP - General Family Medicine 06/23/22 documented as of this encounter
--- OUTSIDE RECORDS SUMMARY | 2023-11-24 15:25 | External Medical Summary | Summary of Care ---
Author Name Unknown Organization [facility] Address [address] [place] [address] Phone [phone] Care Team Providers Care Technical Project Coordinator Name Role Phone Rob Chisholm MD Primary Care Provider + Reason for Referral * Evaluate & Treat - Unlimited Visits (Within 10 days (routine)) - Authorized Specialty Diagnoses / Procedures Referred By Contdaniel t Referred To Contact Pharmacist / Pharmacy Diagnoses Type 2 diabetes mellitus with diabetic mononeuropathy, without long-term current use of insulin ([facility]) Yue Torrez CRNP [address] [place] [address] Referral ID Status Reason Start Date Expiration Date Visits Requested Visits Authorized [id number] Authorized Specialty Services Required 11/08/2023 99 99 Question Answer Referral Priority Within 10 days (routine) Where should this appointment be scheduled? [facility] Referring Provider Role: Primary Care Reason for Referral: DM Target A1c: < 7 Comments Pharmacist Medication Therapy Management: Minimum frequency patient should be seen in person for medication management: as appropriate per clinical condition and patient status By my signature, I understand that my patient Román Garcia will have his medication therapy managed by the [facility] ([facility]) per established policies, procedures, and protocols. I also certify that this referral may serve as an initiation of service for the management of drug therapy in the above noted patient. [facility] providers will be responsible for scheduling patient visits, obtaining appropriate laboratory studies, and adjusting medication management therapy per patient's need, in addition to those roles spelled out in the clinic policy, procedures, and drug management protocols. I understand that the service provided by the [facility] is voluntary and have informed patient that they can refuse the service at their discretion. I am aware that the [facility] will provide me with a copy of the patient encounter via my [email or web address]. I authorize the [facility] to carry out these activities on my behalf. I consider this program to be a necessary part of the patient's medical care. DOMINGO Price Reason for Visit * Reason Onset Date Comments Test Results 11/08/2023 Advice 11/08/2023 Encounter Details Date Type Department Care Team (Late st Contact Info) Description 11/08/2023 Telephone Family [facility] [address] [place] [address] Yue Torrez CRNP [address] [place] [address] Test Results; Advice Allergies No known active allergiesdocumented as of this encounter (statuses as of 11/16/2023) Medications Medication Sig Dispensed Refills Start Date End Date Status OneTouch Ultra 2 w/Device KitIndications:Typ e 2 diabetes mellitus with diabetic mononeuropathy, without long-term current use of insulin ([facility]) Check glucose one to four times daily as needed 1 Each 0 08/09/2022 Active OneTouch UltraSoft LancetsIndications :Type 2 diabetes mellitus with diabetic mononeuropathy, without long-term current use of insulin ([facility]) Check glucose one to four times [...] mononeuropathy, without long-term current use of insulin ([facility]) Check glucose one to four times [...] mononeuropathy, without long-term current use of insulin ([facility]) Inject 2.5 mg under the skin once a week. Take for four weeks, then switch to the 5mg pen. 8 mL 1 11/15/2023 5 Active Mounjaro 5 MG/0.5ML Subcutaneous Solution Pen-injector (Tirzepatide)Indic ations:Type 2 diabetes mellitus with diabetic mononeuropathy, without long-term current use of insulin (HCC) Inject 5 mg under the skin once a week. Do not start taking until after taking the 2.5mg dose for four weeks. 3 mL 1 11/15/2023 5 Active Dexcom G7 SensorIndications: Type 2 diabetes mellitus with diabetic mononeuropathy, without long-term current use of insulin (HCC) Apply one sensor to the skin for 10 days. After 10 days, remove the old sensor and apply new sensor. 3 Each 5 11/15/2023 Active SITagliptin Phosphate 100 MG Oral Tablet (Januvia)Indicatio ns:Type 2 diabetes mellitus with diabetic mononeuropathy, without long-term current use of insulin ([facility]) Take 1 Tablet by mouth in the morning. 30 Tablet 5 09/26/2023 4 Discontinued documented as of this encounter [...] encounter Miscellaneous Notes * Telephone Encounter - Eleanor Cox OSA - 11/16/2023 1:36 PM EST Reason for patient's call: pt asking to speak with a nurse regarding changing his injections Caller was transferred to [facility] at the nurse line. * Telephone Encounter - Pat Martines LPN - 11/16/2023 7:33 AM EST Call and left detailed message on with this information. Asked if he had anymore questions to call us back. * Telephone Encounter - Ewa Oropeza social worker health services - 11/15/2023 4:18 PM EST Pt is scheduled for 12/13. That was the soonest appt available. Thank you, Ewa Oropeza Metal Fabricator Helper Centralized Clinical Pharmacy Services 11/15/2023,4:18 PM * Telephone Encounter - Yue Torrez CRNP - 11/15/2023 2:26 PM EST Stop januvia, start mounjaro Mounjaro sent to [facility] -- please review to start with the 2.5mg pen first and dosing instructions including increasing to 5mg after 4 weeks if tolerating Also sent CGM so better track blood sugars Will need to use with dexcom jenelle on his phone Number to call to see if sooner MTM appt is [phone] * Telephone Encounter - Tessie Alvares LPN - 11/15/2023 11:42 AM EST Called and spoke with patient. Had a lengthy conversation explaining the importance of MTM appointment, DM maintenance. Patient is scheduled with MTM in December. Is very interested with seeing MTM to "get a better hold" on his DM. Patient stated he was feeling better for a few days but the diarrhea comes and goes. Aware of stoolstudies. Will complete PARRISH. Patient cancelled GI appointment because he didn't feel a scope was necessary. He thinks his issuesare from medications he is taking. I explained to him that his GI appointment was to discuss the vomiting and diarrhea he has been having. Educated patient on importance of specialties and explained that we are trying to help him feel better. Patient stated he is just frustrated and he is tired of feeling poorly. Patient is interested in trying a different medication prior to MTM appointment. Patient has supplies to check blood glucose and states he knows how to do it. Patient does not check his blood sugars at all-manages it by "how he feels". Patient stated he does not want to prick his fingers multiple times a day. He does feel that he could do a weekly,monthly injection if that is appropriate. Patientis aware that he may need insulin if his diabetes remains very uncontrolled. Patient verbalized understanding and stated he was on insulin while in the hospital and he "felt a lot better". Patient stated he is afraid of being on insulin because it "kills your pancreas. * Telephone Encounter - Yue Torrez CRNP - 11/15/2023 10:52 AM EST This is very different from what he reported to the nurse when she spoke with him on 11/08 (see further down in this same encounter) and he told her the diarrhea and vomiting have stopped and he was agreeable to seeing MTM for ongoing diabetes management. It also looks like a GI appointment was cancelled on 11/09. So if his issues have returned then I would recommend an acute visit for further discussion and also keeping his scheduled follow up with PCP and MTM in 8 weeks. His diabetes is very uncontrolled and likely making him not feel well -- we can try putting him on a different medication if it seems like the Januvia is making him feel unwell. Let me know if he'd like me to put something in to try before he seems MTM. I will put in stool studies and repeat bloodwork in the meantime. * Telephone Encounter - Tessie Alvares LPN - 11/15/2023 10:39 AM EST Called and spoke with patient. Patient states vomiting and diarrhea "still happens" when asked if it is consistent patient states "I am consistently sick and my quality of life sucks". Patient reports he is always fatigued, feel over all "awful", no appetite. Patient states "I feel like I am taking this seriously and Im not getting the appropriate response back". Not sure if you want stool studies at this time? Please advise. * Telephone Encounter - Yeny Fajardo OSA - 11/14/2023 2:19 PM EST Pt is calling and would like to discuss his labs from 11-09-23. Please call later this afternoon because he is at work right now. * Telephone Encounter - Armond Castano OSA - 11/09/2023 2:10 PM EST MTM referral scheduled * Telephone Encounter - Toya Gonzalez LPN - 11/08/2023 9:39 AM EST Patient returned call. Informed of message. Verbalized understanding. "Yes all of the above" fatigue and night sweats no fever. Diarrhea and vomiting have stop about a week ago. He has been feeling slightly normal starting lastday. He indicates the WBC have been elevated since early , no one has been able to figure it out. He will repeat labs as directed and agreeable to see mtm * Telephone Encounter - Bry Camargo OSA - 11/08/2023 9:38 AM EST Reason for patient's call: test results Caller was transferred to [place] at the nurse line. * Telephone Encounter - Pat Martines LPN - 11/08/2023 9:28 AM EST Called pt, left message to return call. Need to review bw results below when pt calls back. * Telephone Encounter - Yue Torrez CRNP - 11/08/2023 9:24 AM EST Labs show continued WBC elevation -- he is having fevers, malaise, sweats, any other symptoms? Please ask about diarrhea symptoms as well -- if still present will order stool studies Would like to check another set of labs next 2-3 days If continuing to have vomiting needs to go to ER DM very uncontrolled Referral to [facility] placed documented in this encounter Plan of Treatment Upcoming Encounters Date Type Department Care Team (Late st Contact Info) Description 11/24/2023 8:30 AM EST Imaging Radiology [facility] [address] [place] [address] 12/09/2023 8:30 AM EST Office Visit Otolaryngology [facility] [address] [place] [address] Kendall Armstrong DO [address] [place] [address] 12/13/2023 2:20 PM EST Pharmacy Pharmacy, [facility] [address] [place] [address] [facility] [address] [place] [address] 01/05/2024 9:20 AM EDT Office Visit Family Practice [facility] [address] [place] [address] Rob Chisholm MD [address] [place] [address] 01/12/2024 12:30 PM EDT Office Visit Dermatology, [facility] [address] [place] [address] [place] [address] Carlene Lorenzo PA-C [address] [place] [address] [place] [address] Scheduled Orders Name Type Priority Associated Diagnoses Orde r Schedule CBC WITH WBC DIFFERENTIAL Lab Routine Leukocytosis, unspecified type Nausea and vomiting, unspecified vomiting type Expected: 11/15/2023 (Approximate), Expires: 11/15/2024 COMPREHENSIVE METABOLIC PANEL Lab Routine Nausea and vomiting, unspecified vomiting type Expected: 11/15/2023 (Approximate), Expires: 11/14/2024 GASTROINTESTINAL PATHOGEN PANEL, STOOL Lab Routine Diarrhea, unspecified type Expected: 11/15/2023 (Approximate), Expires: 11/14/2024 REGIONAL PARASITE ANTIGEN SCREEN Lab Routine Diarrhea, unspecified type Expected: 11/15/2023 (Approximate), Expires: 11/14/2024 CLOSTRIDIUM DIFFICILE, PCR Lab Routine Diarrhea, unspecified type Expected: 11/15/2023 (Approximate), Expires: 11/14/2024 Scheduled Referrals Name Type Priority Associated Diagnoses Orde r Schedule PHARMACIST MEDS THERAPY MGMT REFERRAL OP Referral Within 10 days (routine) Type 2 diabetes mellitus with diabetic mononeuropathy, without long-term current use of insulin (HCC) Ordered: 11/08/2023 Health Maintenance Due Date Last Done Comments [...] Not on filedocumented as of this encounter Results * (ABNORMAL) COMPREHENSIVE METABOLIC PANEL (11/09/2023 12:33 PM EST) BUN 18 6 - 20 mg/dL 11/09/2023 1:54 PM EST [facility] Creatinine 1.3(H) 0.6 - 1.2 mg/dL 11/09/2023 1:54 PM EST [facility] Estimated Glomerular Filtration Rate 64 >=60 mL/min 11/09/2023 1:54 PM EST [facility] Comment:eGFR is calculated b ased on the CKD-EPI 2020 equation Sodium 137 135 - 146 mmol/L 11/09/2023 1:54 PM EST [facility] Potassium 4.9 3.5 - 5.1 mmol/L 11/09/2023 1:54 PM EST [facility] Chloride 96(L) 98 - 107 mmol/L 11/09/2023 1:54 PM EST [facility] CO2 26 22 - 32 mmol/L 11/09/2023 1:54 PM EST [facility] Anion Gap 15 7 - 15 mmol/L 11/09/2023 1:54 PM EST [facility] Glucose 179(H) 70 - 120 mg/dL 11/09/2023 1:54 PM EST [facility] Albumin 4.6 3.8 - 5.0 g/dL 11/09/2023 1:54 PM EST [facility] AST 18 10 - 50 U/L 11/09/2023 1:54 PM EST [facility] Alkaline Phosphatase 80 35 - 130 U/L 11/09/2023 1:54 PM EST [facility] Bilirubin, Total 0.9 <=1.2 mg/dL 11/09/2023 1:54 PM EST [facility] Calcium 9.9 8.4 - 10.2 mg/dL 11/09/2023 1:54 PM EST [facility] Protein 6.8 6.0 - 8.3 g/dL 11/09/2023 1:54 PM EST [facility] ALT 21 10 - 50 U/L 11/09/2023 1:54 PM EST [facility] Blood Venous blood specimen / Unknown Venipuncture / Unknown 11/09/2023 12:33 PM EST 11/09/2023 12:[address] LAB BLOOD ORDERABL ES [facility] [address] [place] [address] documented in this encounter Visit Diagnoses Diagnosis Leukocytosis, unspecified type- Primary Nausea and vomiting, unspecified vomiting type Type 2 diabetes mellitus with diabetic mononeuropathy, without long-term current use of insulin (HCC) Diarrhea, unspecified type documented in this encounter Care Teams Technical Project Coordinator Relationship Specialty Start Date End Date Rob Chisholm MD [address] [place] [address] PCP - General Family Medicine 06/23/22 documented as of this encounter
--- OUTSIDE RECORDS SUMMARY | 2023-11-24 15:25 | External Medical Summary | Summary of Care ---
Author Name Unknown Organization [facility] Address [address] [place] [address] Phone [phone] Care Team Providers Care Grades 1 Thru 6 Home Teacher Name Role Phone Rob Chisholm MD Primary Care Provider + Reason for Referral * Evaluate & Treat - Unlimited Visits (Within 10 days (routine)) - Authorized Specialty Diagnoses / Procedures Referred By Contdaniel t Referred To Contact Pharmacist / Pharmacy Diagnoses Type 2 diabetes mellitus with diabetic mononeuropathy, without long-term current use of insulin ([facility]) Yue Torrez CRNP [address] [place] [address] Referral ID Status Reason Start Date Expiration Date Visits Requested Visits Authorized [id number] Authorized Specialty Services Required 11/08/2023 99 99 Question Answer Referral Priority Within 10 days (routine) Where should this appointment be scheduled? [facility] Referring Provider Role: Primary Care Reason for Referral: DM Target A1c: < 7 Comments Pharmacist Medication Therapy Management: Minimum frequency patient should be seen in person for medication management: as appropriate per clinical condition and patient status By my signature, I understand that my patient Román Garcia will have his medication therapy managed by the [facility] Medication Therapy Disease Management [facility] ([facility]) per established policies, procedures, and protocols. I also certify that this referral may serve as an initiation of service for the management of drug therapy in the above noted patient. [facility] providers will be responsible for scheduling patient visits, obtaining appropriate laboratory studies, and adjusting medication management therapy per patient's need, in addition to those roles spelled out in the clinic policy, procedures, and drug management protocols. I understand that the service provided by the [facility] is voluntary and have informed patient that they can refuse the service at their discretion. I am aware that the [facility] will provide me with a copy of the patient encounter via my [employer] In[employer]asimet. I authorize the [facility] to carry out these activities on my behalf. I consider this program to be a necessary part of the patient's medical care. DOMINGO Price Reason for Visit * Reason Onset Date Comments Test Results 11/08/2023 Advice 11/08/2023 Encounter Details Date Type Department Care Team (Late st Contact Info) Description 11/08/2023 Telephone Family [facility] [address] [place] [address] Yue Torrez CRNP [address] [place] [address] Test Results; Advice Allergies No known active allergiesdocumented as of this encounter (statuses as of 11/16/2023) Medications Medication Sig Dispensed Refills Start Date End Date Status OneTouch Ultra 2 w/Device KitIndications:Typ e 2 diabetes mellitus with diabetic mononeuropathy, without long-term current use of insulin ([facility]) Check glucose one to four times daily as needed 1 Each 0 08/09/2022 Active OneTouch UltraSoft LancetsIndications :Type 2 diabetes mellitus with diabetic mononeuropathy, without long-term current use of insulin ([facility]) Check glucose one to four [...] mononeuropathy, without long-term current use of insulin ([facility]) Check glucose one to four [...] mononeuropathy, without long-term current use of insulin ([facility]) Inject 2.5 mg under the skin once [...] mononeuropathy, without long-term current use of insulin ([facility]) Take 1 Tablet by mouth in the [...] Smoking Tobacco: Former Cigarettes 0.5 S tarted: 1984 Pipe Smokeless Tobacco: Never Comments:nicotine gum, pouch [...] encounter Miscellaneous Notes * Telephone Encounter - Shelia Santos OSA - 11/16/2023 2:14 PM EST Patient calling back in regards to prior auth for medication. Mounjaro 5 MG/0.5ML Subcutaneous Solution Pen-injector (Tirzepatide) Mounjaro 2.5 MG/0.5ML Subcutaneous Solution Pen-injector (Tirzepatide) He needs advice on how to proceed until medication is authorized. Please assit. Transferring to pharm line. * Telephone Encounter - Kelly Buchanan LPN - 11/16/2023 1:48 PM EST Patient is aware and verbalizes understanding. * Telephone Encounter - Eleanor Cox OSA - 11/16/2023 1:36 PM EST Reason for patient's call: pt asking to speak with a nurse regarding changing his injections Caller was transferred to [facility] at the nurse line. * Telephone Encounter - Pat Martines LPN - 11/16/2023 7:33 AM EST Call and left detailed message on with this information. Asked if he had anymore questions to call us back. * Telephone Encounter - Ewa Oropeza PHARM Tech - 11/15/2023 4:18 PM EST Pt is scheduled for 12/13. That was the soonest appt available. Thank you, Ewa Oropeza Manufacturing Development Engineer Centralized Clinical Pharmacy Services 11/15/2023,4:18 PM * Telephone Encounter - Yue Torrez CRNP - 11/15/2023 2:26 PM EST Stop januvia, start mounjaro Mounjaro sent to [facility] -- please review to start with the 2.5mg pen first and dosing instructions including increasing to 5mg after 4 weeks if tolerating Also sent CGM so better track blood sugars Will need to use with dexcom jenelle on his phone Number to call to see if sooner MTM appt is [phone] * Telephone Encounter - Tessie Alvares LPN [...] He has been feeling slightly normal starting last. He indicates the WBC have been elevated since early , no one has been able to figure it out. He will repeat labs as directed and agreeable to see mtm * Telephone Encounter - Bry Camargo OSA - 11/08/2023 9:38 AM EST Reason for patient's call: test results Caller was transferred to [place] at the nurse line. * Telephone Encounter [...] to ER DM very uncontrolled Referral to [facility] placed documented in this encounter Plan of Treatment Upcoming Encounters Date Type Department Care Team (Late st Contact Info) Description 11/24/2023 8:30 AM EST Imaging Radiology [address] [place] [address] 12/09/2023 8:30 AM EST Office Visit Otolaryngology [facility] [address] [place] [address] Kendall Armstrong DO [address] [place] [address] 12/13/2023 2:20 PM EST Pharmacy Pharmacy, [facility] [address] [facility] [place] [address] Jens Estelle [facility] [address] [facility] [place] [address] 01/05/2024 9:20 AM EDT Office Visit Family Practice [facility] [address] [place] [address] Rob Chisholm MD [address] [place] [address] 01/12/2024 12:30 PM EDT Office Visit Dermatology, [facility] [address] [address] [place] [address] Carlene Lorenzo PA-C [address] [place] [address] [place] [address] Scheduled Orders Name Type Priority Associated Diagnoses [...] PM EST 11/09/2023 12:33 PM EST Yue Torrez DOMINGO LAB BLOOD ORDERABL ES [facility] [address] [place] [address] documented in this encounter Visit Diagnoses Diagnosis Leukocytosis, unspecified type- Primary Nausea and vomiting, unspecified vomiting type Type 2 diabetes mellitus with diabetic mononeuropathy, without long-term current use of insulin (HCC) Diarrhea, unspecified type documented in this encounter Care Teams Grades 1 Thru 6 Home Teacher Relationship Specialty Start Date End Date Rob Chisholm MD [address] [place] [address] PCP - General Family Medicine 06/23/22 documented as of this encounter
--- OUTSIDE RECORDS SUMMARY | 2023-11-24 15:25 | External Medical Summary | Summary of Care ---
Author Name Unknown Organization [facility] Address [address] [place] [address] Phone [phone] Care Team Providers Care Proof Technician Helper Name Role Phone Rob Chisholm MD Primary Care Provider + Reason for Visit * Reason Onset Date Comments Pre Cert/Prior Auth 11/16/2023 Encounter Details Date Type Department Care Team (Late st Contact Info) Description 11/16/2023 Telephone Family Practice [facility] [address] [facility] [address] Rob Chisholm MD [address] [facility] [place] [address] Pre Cert/Prior Auth Allergies No known active allergiesdocumented as of this encounter (statuses as of 11/16/2023) Medications Medication Sig Dispensed Refills Start Date End Date Status OneTouch Ultra 2 w/Device KitIndications:Type 2 diabetes mellitus with diabetic mononeuropathy, without long-term current use of insulin ([facility]) Check glucose one to four [...] long-term current use of insulin ([facility]) Check glucose one to four [...] long-term current use of insulin ([facility]) Take 4 Tablets by mouth [...] long-term current use of insulin ([facility]) Inject 5 mg under the skin once [...] encounter Miscellaneous Notes * Telephone Encounter - Mil Wong CPhT - 11/16/2023 3:57 PM EST This is a new [place] request. Upon review of this prior authorization request, I verified this request is appropriate. This is prescribed by a department for which [facility] is authorized to review prior authorizations [...] how to proceed. Thank you, Augusto Wong ([facility]) Sewing Machines Salesperson III [facility] ([facility]) (formerly [...] follows: Patient name: Román Garcia ID number: [id number] BIN number: [id number] PCN number: [id number] Group number: N/[id number] Subscriber name: Román Garcia Primary or Secondary Insurance:Primary Medication: Mounjaro 2.5 MG/0.5ML Subcutaneous Solution Pen-injector (Tirzepatide) and Mounjaro 5 MG/0.5ML Subcutaneous Solution Pen-injector (Tirzepatide) Reason for Request: Prior Authorization Pharmacy and phone number: [facility] [id number] [phone] Rx plan and phone number: [facility] [employer] [facility] [phone] Is this a new medication for the patient? Yes What alternative medications does the pharmacy have in stock?: n/a Thank you, Linda Watson Digital Art Director I [facility] ([facility]) (Formerly Telepharmacy) 11/16/2023,2:28 PM documented in this encounter Plan of Treatment Upcoming Encounters Date Type Department Care Team (Late st Contact Info) Description 11/24/2023 8:30 AM EST Imaging Radiology [facility] [address] [place] [address] 12/09/2023 8:30 AM EST Office Visit Otolaryngology [facility] [address] [place] [address] Kendall Armstrong DO [address] [place] [address] 12/13/2023 2:20 PM EST [facility]acy [facility] [place] [address] [facility] [address] [place] [address] 01/05/2024 9:20 AM EDT Office Visit Family Practice [facility] [address] [place] [address] Rob Chisholm MD [address] [place] [address] 01/12/2024 12:30 PM EDT Office Visit Dermatology, Flako Nguyen [address] [place] [address] [place] [address] Carlene Lorenzo PA-C [address] [place] [address] [place] [address] Health Maintenance Due Date Last Done Comments [...] (HCC) documented in this encounter Care Teams Proof Technician Helper Relationship Specialty Start Date End Date Rob Chisholm MD [address] [place] [address] PCP - General Family Medicine 06/23/22 documented as of this encounter
--- OUTSIDE RECORDS SUMMARY | 2023-11-24 15:25 | External Medical Summary | Summary of Care ---
Author Name Unknown Organization [facility] Address [address] [place] [address] Phone [phone] Care Team Providers Care Family Services Specialist Name Role Phone Rob Chisholm MD Primary Care Provider + Reason for Referral * Evaluate & Treat - Unlimited Visits (Within 10 days (routine)) - Authorized Specialty Diagnoses / Procedures Referred By Contdaniel t Referred To Contact Pharmacist / Pharmacy Diagnoses Type 2 diabetes mellitus with diabetic mononeuropathy, without long-term current use of insulin ([facility]) Yue Torrez CRNP [address] [place] [address] Referral ID Status Reason Start Date Expiration Date Visits Requested Visits Authorized [id number] Authorized Specialty Services Required 11/08/2023 99 99 Question Answer Referral Priority Within 10 days (routine) Where should this appointment be scheduled? [facility] Referring Provider Role: Primary Care Reason for Referral: DM Target A1c: < 7 Comments Pharmacist Medication Therapy Management: Minimum frequency patient should be seen in person for medication management: as appropriate per clinical condition and patient status By my signature, I understand that my patient Román Garcia will have his medication therapy managed by the [facility] Medication Therapy Disease Management Clinic ([facility]) per established policies, procedures, and protocols. I also certify that this referral may serve as an initiation of service for the management of drug therapy in the above noted patient. [facility] providers will be responsible for scheduling patient visits, obtaining appropriate laboratory studies, and adjusting medication management therapy per patient's need, in addition to those roles spelled out in the clinic policy, procedures, and drug management protocols. I understand that the service provided by the [facility] Clinic is voluntary and have informed patient that they can refuse the service at their discretion. I am aware that the [facility] Clinic will provide me with a copy of the patient encounter via my [employer] InOutSystemset. I authorize the [facility] Clinic to carry out these activities on my behalf. I consider this program to be a necessary part of the patient's medical care. DOMINGO Price Reason for Visit * Reason Onset Date Comments Test Results 11/08/2023 Encounter Details Date Type Department Care Team (Late st Contact Info) Description 11/08/2023 Telephone Family [facility] [address] [place] [address] Yue Torrez CRNP [address] [place] [address] Test Results Allergies No known active allergiesdocumented as of this encounter (statuses as of 11/16/2023) Medications Medication Sig Dispensed Refills Start Date End Date Status OneTouch Ultra 2 w/Device KitIndications:Typ e 2 diabetes mellitus with diabetic mononeuropathy, without long-term current use of insulin ([facility]) Check glucose one to four times daily as needed 1 Each 0 08/09/2022 Active OneTouch UltraSoft LancetsIndications :Type 2 diabetes mellitus with diabetic mononeuropathy, without long-term current use of insulin ([facility]) Check glucose one to four times daily as needed 100 Each 11 08/09/2022 Active OneTouch Ultra Blue In Vitro Strip (Glucose Blood)Indications: Type 2 diabetes mellitus with diabetic mononeuropathy, without long-term current use of insulin ([facility]) Check glucose one to four times daily as needed 100 Strip 11 08/09/2022 Active OneTouch Delica Lancing DevIndications:Typ e 2 diabetes mellitus with diabetic mononeuropathy, without long-term current use of insulin ([facility]) Check glucose one to four [...] mononeuropathy, without long-term current use of insulin ([facility]) Take 1 Tablet by mouth in [...] encounter Miscellaneous Notes * Telephone Encounter - Pat Martines LPN - 11/16/2023 7:33 AM EST Call and left detailed message on with this information. Asked if he had anymore questions to call us back. * Telephone Encounter - Ewa Oropeza PHARM Tech - 11/15/2023 4:18 PM EST Pt is scheduled for 12/13. That was the soonest appt available. Thank you, Ewa Oropeza Lighting Fixtures Decorator [facility] 11/15/2023,4:18 PM * [...] to see if sooner MTM appt is [phone] * Telephone Encounter - Tessie Alvares LPN [...] to ER DM very uncontrolled Referral to [facility] placed documented in this encounter Plan of Treatment Upcoming Encounters Date Type Department Care Team (Late st Contact Info) Description 11/24/2023 8:30 AM EST Imaging Radiology [facility] [address] [place] [address] 12/09/2023 8:30 AM EST Office Visit Otolaryngology [facility] [address] [place] [address] Kendall Armstrong DO [address] [place] [address] 12/13/2023 2:20 PM EST Pharmacy Pharmacy, [facility] [address] [place] [address] [facility] [address] [place] [address] 01/05/2024 9:20 AM EDT Office Visit Family Practice [facility] [address] [place] [address] Rob Chisholm MD [address] [place] [address] 01/12/2024 12:30 PM EDT Office Visit Dermatology, Flako Nguyen [address] [place] [address] [place] [address] Carlene Lorenzo PA-C [address] [address] [place] [address] Scheduled Orders Name Type Priority Associated Diagnoses [...] ES [facility] [place] [facility] [place] [address] documented in this encounter Visit Diagnoses Diagnosis Leukocytosis, unspecified type- Primary Nausea and vomiting, unspecified vomiting type Type 2 diabetes mellitus with diabetic mononeuropathy, without long-term current use of insulin (HCC) Diarrhea, unspecified type documented in this encounter Care Teams Family Services Specialist Relationship Specialty Start Date End Date Rob Chisholm MD [address] [place] [address] PCP - General Family Medicine 06/23/22 documented as of this encounter
--- OUTSIDE RECORDS SUMMARY | 2023-11-24 15:25 | External Medical Summary | Summary of Care ---
Author Name Unknown Organization [facility] Address [address] [place] [address] Phone [phone] Care Team Providers Care Supervisor Modern Languages Name Role Phone Rob Chisholm MD Primary Care Provider + Reason for Visit * Reason Onset Date Comments Advice 11/16/2023 Encounter Details Date Type Department Care Team (Late st Contact Info) Description 11/16/2023 Telephone Family Practice [facility] [address] [place] [address] Rob Chisholm MD [address] [facility] [place] [address] Advice Allergies No known active allergiesdocumented as of this encounter (statuses as of 11/16/2023) Medications Medication Sig Dispensed Refills Start Date End Date Status OneTouch Ultra 2 w/Device KitIndications:Type 2 diabetes mellitus with diabetic mononeuropathy, without long-term current use of insulin ([facility]) Check glucose one to four times daily [...] without long-term current use of insulin ([facility]) Check glucose one to four times daily [...] without long-term current use of insulin ([facility]) Take 4 Tablets by mouth in the [...] encounter Miscellaneous Notes * Telephone Encounter - Bry Schmidt, [facility] - 11/16/2023 2:30 PM EST Spoke [...] [facility] ([facility]) (Formerly Telepharmacy) [phone] 11/16/2023, 2:35 PM Electronically signed by Bry Schmidt [facility] at 11/16/2023 2:36 PM EST * Telephone Encounter - Linda Watson PHARM Tech - 11/16/2023 2:19 PM EST Pt is calling regarding SITagliptin Phosphate 100 MG Oral Tablet (Januvia) (Discontinued) . Provider prescribed Mounjaro for patient and discontinued Sitagliptin. Pt needs a Prior authorization for Mounjaro. Should Pt continue to take Sitagliptin until Mounjaro is approved? Warm transfer to [facility] Thank you, Linda Watson Career Development Coordinator/Teacher I [facility] ([facility]) (Formerly Telepharmacy) 11/16/2023,2:24 PM documented in this encounter Plan of Treatment Upcoming Encounters Date Type Department Care Team (Late st Contact Info) Description 11/24/2023 8:30 AM EST Imaging Radiology [facility] [address] [place] [address] 12/09/2023 8:30 AM EST Office [facility] [address] [place] [address] Kendall Armstrong, [address] [place] [address] 12/13/2023 2:20 PM EST Pharmacy Pharmacy, [facility] [address] [place] [address] [facility] [place] [address] [place] [address] 01/05/2024 9:20 AM EDT Office Visit Family Practice [facility] [place] [place] [address] Rob Chisholm MD [address] [place] [address] 01/12/2024 12:30 PM EDT Office Visit Dermatology, [place]anna [place]ust[place]Fl[place] [address] [address] [place] [address] Carlene Lorenzo PA-C [address] [place] [address] [place] [address] Health Maintenance Due Date Last Done Comments [...] filedocumented as of this encounter Care Teams Supervisor Modern Languages Relationship Specialty Start Date End Date Rob Chisholm MD [address] [place] [address] PCP - General Family Medicine 06/23/22 documented as of this encounter
--- OUTSIDE RECORDS SUMMARY | 2023-11-24 15:25 | External Medical Summary | Summary of Care ---
Author Name Unknown Organization [facility] Address [address] [place] [address] Phone [phone] Care Team Providers Care Needle Control Cheniller Name Role Phone Rob Chisholm MD Primary Care Provider + Reason for Referral * Evaluate & Treat - Unlimited Visits (Within 10 days (routine)) - Authorized Specialty Diagnoses / Procedures Referred By Contdaniel t Referred To Contact Pharmacist / Pharmacy Diagnoses Type 2 diabetes mellitus with diabetic mononeuropathy, without long-term current use of insulin ([facility]) Yue Torrez CRNP [address] [place] [address] Referral ID Status Reason Start Date Expiration Date Visits Requested Visits Authorized [id number] Authorized Specialty Services Required 11/08/2023 99 99 Question Answer Referral Priority Within 10 days (routine) Where should this appointment be scheduled? [facility] Referring Provider Role: Primary Care Reason for Referral: DM Target A1c: < 7 Comments Pharmacist Medication Therapy Management: Minimum frequency patient should be seen in person for medication management: as appropriate per clinical condition and patient status By my signature, I understand that my patient Román Garcia will have his medication therapy managed by the [facility] Medication Therapy Disease Management Clinic ([facility]) per established policies, procedures, and protocols. I also certify that this referral may serve as an initiation of service for the management of drug therapy in the above noted patient. [facility] providers will be responsible for scheduling patient visits, obtaining appropriate laboratory studies, and adjusting medication management therapy per patient's need, in addition to those roles spelled out in the clinic policy, procedures, and drug management protocols. I understand that the service provided by the [facility] is voluntary and have informed patient that they can refuse the service at their discretion. I am aware that the [facility] will provide me with a copy of the patient encounter via my [employer] InQderoPateo Communicationset. I authorize the [facility] to carry out these activities on my behalf. I consider this program to be a necessary part of the patient's medical care. DOMINGO Price Reason for Visit * Reason Onset Date Comments Test Results 11/08/2023 Advice 11/08/2023 Encounter Details Date Type Department Care Team (Late st Contact Info) Description 11/08/2023 Telephone Family [facility] [address] [place] [address] Yue Torrez CRNP [address] [place] [address] Test Results; Advice Allergies No known active allergiesdocumented as of this encounter (statuses as of 11/16/2023) Medications Medication Sig Dispensed Refills Start Date End Date Status OneTouch Ultra 2 w/Device KitIndications:Typ e 2 diabetes mellitus with diabetic mononeuropathy, without long-term current use of insulin ([facility]) Check glucose one to four times daily as needed 1 Each 0 08/09/2022 Active OneTouch UltraSoft LancetsIndications :Type 2 diabetes mellitus with diabetic mononeuropathy, without long-term current use of insulin ([facility]) Check glucose one to [...] mononeuropathy, without long-term current use of insulin ([facility]) Check glucose one to [...] mononeuropathy, without long-term current use of insulin ([facility]) Inject 2.5 mg under the [...] mononeuropathy, without long-term current use of insulin ([facility]) Take 1 Tablet by mouth [...] encounter Miscellaneous Notes * Telephone Encounter - Kelly Buchanan LPN - 11/16/2023 1:48 PM EST Patient is aware and verbalizes understanding. * Telephone Encounter - Eleanor Cox OSA - 11/16/2023 1:36 PM EST Reason for patient's call: pt asking to speak with a nurse regarding changing his injections Caller was transferred to Kelly at the nurse line. * Telephone Encounter - Pat Martines LPN - 11/16/2023 7:33 AM EST Call and left detailed message on with this information. Asked if he had anymore questions to call us back. * Telephone Encounter - Ewa Oropeza line cleaner - 11/15/2023 4:18 PM EST Pt is scheduled for 12/13. That was the soonest appt available. Thank you, Ewa Oropeza Knifer Up [facility] 11/15/2023,4:18 PM * Telephone Encounter - Yue Torrez CRNP - 11/15/2023 2:26 PM EST Stop homeruvia, start mounjaro [facility] -- please review to start with the 2.5mg pen first and dosing instructions including increasing to 5mg after 4 weeks if tolerating Also sent CGM so better track blood sugars Will need to use with dexcom jenelle on his phone Number to call to see if sooner MTM appt is [phone] * Telephone Encounter - Tessie Alvares LPN [...] call: test results Caller was transferred to [place] at the nurse line. * Telephone Encounter [...] to ER DM very uncontrolled Referral to [facility] placed documented in this encounter Plan of Treatment Upcoming Encounters Date Type Department Care Team (Late st Contact Info) Description 11/24/2023 8:30 AM EST Imaging Radiology [facility] [address] [place] [address] 12/09/2023 8:30 AM EST Office Visit Otolaryngology [facility] [address] [place] [address] Kendall Armstrong DO [address] [place] [address] 12/13/2023 2:20 PM EST Pharmacy Pharmacy, [facility] [address] [place] [address] [facility] [address] [place] [address] 01/05/2024 9:20 AM EDT Office Visit [facility] [address] [place] [address] Rob Chisholm MD [address] [place] [address] 01/12/2024 12:30 PM EDT Office Visit Dermatology, [place] [address] [place] [address] [place] [address] Carlene Lorenzo PA-C [address] [place] [address] [place] [address] Scheduled Orders Name Type Priority Associated Diagnoses [...] ORDERABL ES [facility] [place] [facility] [address] documented in this encounter Visit Diagnoses Diagnosis Leukocytosis, unspecified type- Primary Nausea and vomiting, unspecified vomiting type Type 2 diabetes mellitus with diabetic mononeuropathy, without long-term current use of insulin (HCC) Diarrhea, unspecified type documented in this encounter Care Teams Needle Control Cheniller Relationship Specialty Start Date End Date Rob Chisholm MD [address] [place] [address] PCP - General Family Medicine 06/23/22 documented as of this encounter
--- OUTSIDE RECORDS SUMMARY | 2023-11-24 15:25 | External Medical Summary | Summary of Care ---
Author Name Unknown Organization [facility] Address [address] [place] [address] Phone [phone] Care Team Providers Care Barbecue Cook Name Role Phone Rob Chisholm MD Primary Care Provider + Reason for Visit * Reason Onset Date Comments Pre Cert/Prior Auth 11/16/2023 Encounter Details Date Type Department Care Team (Late st Contact Info) Description 11/16/2023 Telephone Family Practice [facility] [address] [place] [address] Rob Chisholm MD [address] [place] [address] Pre Cert/Prior Auth Allergies No known active allergiesdocumented as of this encounter (statuses as of 11/17/2023) Medications Medication Sig Dispensed Refills Start Date End Date Status OneTouch Ultra 2 w/Device KitIndications:Typ e 2 diabetes mellitus with diabetic mononeuropathy, without long-term current use of insulin ([facility]) Check glucose one to four times [...] mononeuropathy, without long-term current use of insulin ([facility]) Check glucose one to four times [...] MCG/0.3 mL, 12 YRS AND ABOVE, IM ([employer]) 08/04/2023 COVID-19, mRNA, LNP-s, PF, B ooster, [...] Orders * Telephone Encounter - Anali Denson [facility] - 11/16/2023 4:09 PM EST Rx is [...] Pharmacist [facility] ([facility]) ([facility] [phone] 11/16/2023, 4:10 PM * Telephone Encounter - Mil Wong CPhT - 11/16/2023 3:57 PM EST This is a new [place] request. Upon review of this prior authorization request, I verified this request is appropriate. This is prescribed by a department for which [facility] is authorized to review prior [...] how to proceed. Thank you, Augusto Wong ([facility]) Fashion Adviser III [facility] ([facility]PS) (formerly [...] follows: Patient name: Román Garcia ID number: [id number] BIN number: [id number] PCN number: MCDG Group number: N/A Subscriber name: Román Garcia Primary or Secondary Insurance:Primary Medication: Mounjaro 2.5 MG/0.5ML Subcutaneous Solution Pen-injector (Tirzepatide) and Mounjaro 5 MG/0.5ML Subcutaneous Solution Pen-injector (Tirzepatide) Reason for Request: Prior Authorization Pharmacy and phone number: [facility] [address] [place] [address] [phone] Rx plan and phone number: [facility] [phone] Is this a new medication for the patient? Yes What alternative medications does the pharmacy have in stock?: n/a Thank you, Linda Watson Oncology Nurse I [facility] ([facility]) (Formerly [facility]) 11/16/2023,2:28 PM documented in this encounter Plan of Treatment Upcoming Encounters Date Type Department Care Team (Late st Contact Info) Description 11/24/2023 8:30 AM EST Imaging Radiology [facility] [address] [place] [address] 12/09/2023 8:30 AM EST Office Visit Otolaryngology [facility] [address] [place] [address] Kendall Armstrong DO [address] [place] [address] 12/13/2023 2:20 PM EST Pharmacy Pharmacy, [facility] [address] [place] [address] [facility] [address] [place] [address] 01/05/2024 9:20 AM EDT Office Visit Family Practice [facility] [address] [place] [address] Rob Chisholm MD [address] [place] [address] 01/12/2024 12:30 PM EDT Office Visit Dermatology, Flako Nguyen [address] [place] [address] [place] [address] Carlene Lorenzo PA-C [address] [address] [place] [address] Health Maintenance Due Date Last Done Comments [...] (HCC) documented in this encounter Care Teams Barbecue Cook Relationship Specialty Start Date End Date Rob Chisholm MD [address] [place] [address] PCP - General Family Medicine 06/23/22 documented as of this encounter
--- OUTSIDE RECORDS SUMMARY | 2023-11-24 15:25 | External Medical Summary | Summary of Care ---
Author Name Unknown Organization [facility] Address [address] [place] [address] Phone [phone] Care Team Providers Care Tile Erector Name Role Phone Rob Chisholm MD Primary Care Provider + Reason for Referral * Evaluate & Treat - Unlimited Visits (Within 10 days (routine)) - Authorized Specialty Diagnoses / Procedures Referred By Contdaniel t Referred To Contact Pharmacist / Pharmacy Diagnoses Type 2 diabetes mellitus with diabetic mononeuropathy, without long-term current use of insulin ([facility]) Yue Torrez CRNP [address] [place] [address] Referral ID Status Reason Start Date Expiration Date Visits Requested Visits Authorized [id number] Authorized Specialty Services Required 11/08/2023 99 99 Question Answer Referral Priority Within 10 days (routine) Where should this appointment be scheduled? [facility] Referring Provider Role: Primary Care Reason for Referral: DM Target A1c: < 7 Comments Pharmacist Medication Therapy Management: Minimum frequency patient should be seen in person for medication management: as appropriate per clinical condition and patient status By my signature, I understand that my patient Josephine Garcia will have his medication therapy managed by the [facility] Medication Therapy Disease Management Clinic ([facility]) per established policies, procedures, and protocols. I also certify that this referral may serve as an initiation of service for the management of drug therapy in the above noted patient. [facility] providers will be responsible for scheduling patient visits, obtaining appropriate laboratory studies, and adjusting medication management therapy per patient's need, in addition to those roles spelled out in the clinic policy, procedures, and drug management protocols. I understand that the service provided by the [facility] Clinic is voluntary and have informed patient that they can refuse the service at their discretion. I am aware that the [facility] Clinic will provide me with a copy of the patient encounter via my [employer]. I authorize the [facility] Clinic to carry out these activities on my behalf. I consider this program to be a necessary part of the patient's medical care. DOMINGO Price Reason for Visit * Reason Onset Date Comments Test Results 11/08/2023 Advice 11/08/2023 Encounter Details Date Type Department Care Team (Late st Contact Info) Description 11/08/2023 Telephone Family [facility] [address] [place] [address] Yue Torrez CRNP [address] [place] [address] Test Results; Advice Allergies No known active allergiesdocumented as of this encounter (statuses as of 11/17/2023) Medications Medication Sig Dispensed Refills Start Date End Date Status OneTouch Ultra 2 w/Device KitIndications:Typ e 2 diabetes mellitus with diabetic mononeuropathy, without long-term current use of insulin ([facility]) Check glucose one to four times daily as needed 1 Each 0 08/09/2022 Active OneTouch UltraSoft LancetsIndications :Type 2 diabetes mellitus with diabetic mononeuropathy, without long-term current use of insulin ([facility]) Check glucose one to four times daily [...] mononeuropathy, without long-term current use of insulin ([facility]) Check glucose one to four times daily [...] long-term current use of insulin (HCC) Take 1 Tablet by mouth in the morning. 30 Tablet 5 09/26/2023 4 Discontinued Mounjaro 2.5 MG/0.5ML Subcutaneous Solution Pen-injector (Tirzepatide)Indic [...] encounter Miscellaneous Notes * Telephone Encounter - Donna Moncada LPN - 11/17/2023 8:36 AM EST Mounjaro will not be covered under pts insurance-- alternative OZEMPIC has been sent in. Prior Auth (EOC) ID: [id number] Drug/Service Name: OZEMPIC 0.25-0.5 MG/DOSE PEN Patient: JOSEPHINE GARCIA Date Requested: 11/17/2023 9:07:45 AM MemberID: [id number] : 1965 * Telephone Encounter - Shelia Santos OSA [...] changing his injections Caller was transferred to [facility] at the nurse line. * Telephone Encounter - Pat Martines LPN - 11/16/2023 7:33 AM EST Call and left detailed message on vm with this information. Asked if he had anymore questions to call us back. * Telephone Encounter - Ewa Oropeza PHARM Tech - 11/15/2023 4:18 PM EST Pt is scheduled for 12/13. That was the soonest appt available. Thank you, Ewa Oropeza Oliver Filter Operator [facility] 11/15/2023,4:18 PM * [...] to see if sooner MTM appt is [phone] * Telephone Encounter - Tessie Alvares LPN [...] to ER DM very uncontrolled Referral to [facility] placed documented in this encounter Plan of Treatment Upcoming Encounters Date Type Department Care Team (Late st Contact Info) Description 11/24/2023 8:30 AM EST Imaging Radiology [facility] [address] [place] [address] 12/09/2023 8:30 AM EST Office Visit Otolaryngology [facility] [address] [place] [address] Kendall Armstrong DO [address] [place] [address] 12/13/2023 2:20 PM EST Pharmacy Pharmacy, [facility] [address] [facility] [place] [address] [facility] [address] [place] [address] 01/05/2024 9:20 AM EDT Office Visit Family Practice [facility] [address] [place] [address] Rob Chisholm MD [address] [place] [address] 01/12/2024 12:30 PM EDT Office Visit Dermatology, Flako Nguyen [address] [place] [address] [place] [address] Carlene Lorenzo PA-C [address] [place] [address] [place] [address] Scheduled Orders Name Type Priority Associated Diagnoses [...] ORDERABL ES [facility] [place] [address] [facility] [place] [address] documented in this encounter Visit Diagnoses Diagnosis Leukocytosis, unspecified type- Primary Nausea and vomiting, unspecified vomiting type Type 2 diabetes mellitus with diabetic mononeuropathy, without long-term current use of insulin (HCC) Diarrhea, unspecified type documented in this encounter Care Teams Tile Erector Relationship Specialty Start Date End Date Rob Chisholm MD [address] [place] [address] PCP - General Family Medicine 06/23/22 documented as of this encounter
--- OUTSIDE RECORDS SUMMARY | 2023-11-24 15:25 | External Medical Summary | Summary of Care ---
Author Name Unknown Organization [facility] Address [address] [place] [address] Phone [phone] Care Team Providers Care Arc Welder Apprentice Name Role Phone Rob Chisholm MD Primary Care Provider + Reason for Visit * Reason Onset Date Comments Pre Cert/Prior Auth 11/16/2023 Encounter Details Date Type Department Care Team (Late st Contact Info) Description 11/16/2023 Telephone Family Practice [facility] [address] [facility] [place] [place] [address] Rob Chisholm MD [address] [place] [address] Pre Cert/Prior Auth Allergies No known active allergiesdocumented as of this encounter (statuses as of 11/16/2023) Medications Medication Sig Dispensed Refills Start Date End Date Status OneTouch Ultra 2 w/Device KitIndications:Type 2 diabetes mellitus with diabetic mononeuropathy, without long-term current use of insulin ([facility]) Check glucose one to [...] without long-term current use of insulin ([facility]) Check glucose one to [...] without long-term current use of insulin ([facility]) Take 4 Tablets by mouth [...] without long-term current use of insulin ([facility]) Inject 5 mg under the [...] encounter Miscellaneous Notes * Telephone Encounter - Linda Watson, reacher - 11/16/2023 2:28 PM EST Patient calling to inform doctor that the patient's insurance will not pay for this medication without a completed prior authorization. Did confirm this information with the pharmacy. Pt's current insurance information is as follows: Patient name: Román Garcia ID number: [id number] BIN number: [id number] PCN number: MCDG Group number: N/A Subscriber name: Román Garcia Primary or Secondary Insurance:Primary Medication: Mounjaro 2.5 MG/0.5ML Subcutaneous Solution Pen-injector (Tirzepatide) and Mounjaro 5 MG/0.5ML Subcutaneous Solution Pen-injector (Tirzepatide) Reason for Request: Prior Authorization Pharmacy and phone number: [facility] [phone] [facility] [phone] Rx plan and phone number: [facility] [employer] [facility] [phone] Is this a new medication for the patient? Yes What alternative medications does the pharmacy have in stock?: n/a Thank you, Linda Watson Cash Management Officer I [facility] ([facility]) (Formerly Telepharmacy) 11/16/2023,2:28 PM documented in this encounter Plan of Treatment Upcoming Encounters Date Type Department Care Team (Late st Contact Info) Description 11/24/2023 8:30 AM EST Imaging Radiology [facility] [address] [place] [place] [address] 12/09/2023 8:30 AM EST Office Visit Otolaryngology [facility] [address] [place] [address] Kendall Armstrong DO [address] [place] [address] 12/13/2023 2:20 PM EST Pharmacy Pharmacy, [facility] [address] [place] [address] [facility] [address] [place] [address] 01/05/2024 9:20 AM EDT Office Visit Family Practice [facility] [address] [place] [address] Rob Chisholm MD [address] [place] [address] 01/12/2024 12:30 PM EDT Office Visit Dermatology, Jose Nguyenwn [address] [place] [address] [place] [address] Carlene Lorenzo PA-C [address] [address] [place] [address] Health Maintenance Due Date Last Done Comments [...] filedocumented as of this encounter Care Teams Arc Welder Apprentice Relationship Specialty Start Date End Date Rob Chisholm MD [address] [place] [address] PCP - General Family Medicine 06/23/22 documented as of this encounter
--- OUTSIDE RECORDS SUMMARY | 2023-11-24 15:26 | External Medical Summary ---
Author Name Unknown Address Unknown Organization [facility] [place] [address] [place] [address] Laboratory Report Ordering Provider Test Date Status TITUS MCINTOSH 11/09/2023 12:33:22 Final Observation Date Value Abnormality Reference (Units ) Status BUN 11/09/2023 12:33:22 18 6-20 (mg/dL) Final Creatinine 11/09/2023 12:33:22 1.3 Above high normal 0.6-1.2 (mg/dL) Final Glomerular filtration rate/1.73 sq M.predicted [Volume Rate/Area] in Serum, Plasma or Blood by Creatinine-based formula (CKD-EPI) 11/09/2023 12:33:22 64 >=60 (mL/min) Final eGFR is calculated based on the CKD-EPI 2020 equation SODIUM 11/09/2023 12:33:22 137 135-146 (m mol/L) Final Potassium 11/09/2023 12:33:22 4.9 3.5-5.1 (m mol/L) Final Cl 11/09/2023 12:33:22 96 Below low normal 98- 107 (mmol/L) Final CO2 11/09/2023 12:33:22 26 22-32 (mmo l/L) Final Anion gap 11/09/2023 12:33:22 15 7-15 (mmol /L) Final Glucose 11/09/2023 12:33:22 179 Above high normal 70 -120 (mg/dL) Final Albumin 11/09/2023 12:33:22 4.6 3.8-5.0 (g /dL) Final AST (Aspartate aminotransferase) 11/09/2023 12:33:22 18 10-50 (U/L) Fin al Alk Phos 11/09/2023 12:33:22 80 35-130 (U/ L) Final Bilirubin, Total 11/09/2023 12:33:22 0.9 <=1 .2 (mg/dL) Final Calcium 11/09/2023 12:33:22 9.9 8.4-10.2 ( mg/dL) Final Protein 11/09/2023 12:33:22 6.8 6.0-8.3 (g /dL) Final ALT (Alanine aminotransferase) 11/09/2023 12:33:22 21 10-50 (U/L) Mario rivas Performing Location [facility] [address] [facility] [address]
--- OUTSIDE RECORDS SUMMARY | 2023-11-24 15:26 | External Medical Summary | Summary of Care ---
Author Name Unknown Organization [facility] Address [address] [place] [address] Phone [phone] Care Team Providers Care Sql Report Writer Name Role Phone Rob Chisholm MD Primary Care Provider + Reason for Visit * Reason Onset Date Comments Advice 10/26/2023 Encounter Details Date Type Department Care Team (Late st Contact Info) Description 10/26/2023 Telephone Family Practice [facility] [address] [facility] [place] [address] Rob Chisholm MD [address] [place] [address] Advice Allergies No known active allergiesdocumented as of this encounter (statuses as of 10/26/2023) Medications Medication Sig Dispensed Refills Start Date End Date Status OneTouch Ultra 2 w/Device KitIndications:Type 2 diabetes mellitus with diabetic mononeuropathy, without long-term current use of insulin ([facility]) Check glucose one to four times daily as needed 1 Each 0 08/09/2022 Active OneTouch UltraSoft LancetsIndications:T ype 2 diabetes mellitus with diabetic mononeuropathy, without long-term current use of insulin ([facility]) Check glucose one to four times daily as needed 100 Each 11 08/09/2022 Active OneTouch Ultra Blue In Vitro Strip (Glucose Blood)Indications:Ty pe 2 diabetes mellitus with diabetic mononeuropathy, without long-term current use of insulin ([facility]) Check glucose one to four times daily as needed 100 Strip 11 08/09/2022 Active OneTouch Delica Lancing DevIndications:Type 2 diabetes mellitus with diabetic mononeuropathy, without long-term current use of insulin ([facility]) Check glucose one to four [...] day E11.9 100 Strip 11 09/26/2023 Active metFORMIN HCl 500 MG Oral Tablet (Glucophage) Take 2 Tablets by mouth 2 times a day with morning and evening meals. 360 Tablet 3 09/26/2023 Active busPIRone HCl 5 MG Oral [...] the morning. 30 Tablet 5 09/26/2023 Active SITagliptin Phosphate 100 MG Oral Tablet (Januvia)Indications :Type 2 diabetes mellitus with diabetic mononeuropathy, without long-term current use of insulin (HCC) Take 1 Tablet by mouth in the morning. 30 Tablet 5 09/26/2023 Active PARoxetine HCl 30 MG Oral Tablet (Paxil) take 1 tablet by mouth IN THE MORNING 30 Tablet 11 09/26/2023 Active Nicotine 21 MG/24HR Transdermal Patch 24 Hour (Nicoderm CQ) Place 1 Patch over 24 hours topically on the skin in the morning. On upper body/upper arm, change once a day for 6 weeks.. 28 Patch 0 10/18/2023 Active documented as of this encounter (statuses as of 10/26/2023) Active Problems Problem Noted Date Diagnosed Date [...] as of this encounter (statuses as of 10/26/2023) Immunizations Name Administration Dates Next Due COVID-19 mRNA, LNP-s, No Pre serve, 2-Dose Series (Moderna) 02/23/2021,01/19/2021 COVID-19, MRNA-LNP, 23-24, P F, 30 MCG/0.3 mL, 12 YRS AND ABOVE, IM ([facility]) 08/04/2023 COVID-19, mRNA, LNP-s, PF, B ooster, [...] encounter Miscellaneous Notes * Telephone Encounter - Tessie Alvares LPN - 10/26/2023 11:38 AM EST Spoke to patient. Notified of below. Will go to the ER. * Telephone Encounter - Rob Chisholm MD - 10/26/2023 11:09 AM EST Sugar quite high 370s and WBc was high. Should go back to ER--may be fighting off infection, may need to stay until feeling better. * Telephone Encounter - Tessie Alvares LPN - 10/26/2023 10:46 AM EST ER report obtained from [facility]. Pt left before given a bed in the ER. Was only briefly examined in triage and given fluids. ER notes show pt had high BG and WBC. Pt did have a quad screen done in triage which came back negative. Will route to PCP for input/advice. Please assist with scheduling ER follow up with PCP or PAPER FINISHER. * Telephone Encounter - Pily Newton OSA - 10/26/2023 9:48 AM EST Pt is calling as he is nauseous/ tired/ can not eating/ vomiting since 10/22/23. He did go to [facility] yesterday but only gave him an IV. Pt believes it is being caused by his diabetes or the medication for the diabetes and wondering if he should be on insulin. Pt does not test sugars regularly. He would like to speak with provider or nurse to discuss what might be done to help him with the symptoms. documented in this encounter Plan of Treatment Upcoming Encounters Date Type Department Care Team (Late st Contact Info) Description 11/24/2023 8:30 AM EST Imaging Radiology [facility] [address] [place] [address] 12/09/2023 8:30 AM EST Office Visit Otolaryngology [facility] [address] [place] [address] Kendall Armstrong DO [address] [place] [address] 01/05/2024 9:20 AM EDT Office Visit Family Practice [facility] [address] [place] [place] [address] Rob Chisholm MD [address] [place] [address] 01/12/2024 12:30 PM EDT Office Visit Dermatology, Flako Nguyen [address] [place] [address] [place] [address] Carlene Lorenzo PA-C [address] [place] [address] [place] [address] 01/16/2024 9:00 AM EDT Office Visit Pharmacy, [facility] [address] [place] [address] [facility] [address] [place] [address] Health Maintenance Due Date Last Done Comments Hepatitis B (1 of 3 - 3-dose series) 1965 Depression Screening 1979 Cologuard 2012 Colonoscopy 2012 Sigmoidoscopy 2012 Diabetic Foot Exam 08/09/2023 08/09/2022 Diabetic Eye Exam 11/30/2023 11/30/2022 HbA1c 12/16/2023 06/15/2023, 050 02/2023, 11/18/2022, Additional history exists Albumin/Creatinine Ratio 02/26/2024 023, 12/30/2022, 11/19/2022, Additional history exists Colorectal Cancer Screening 03/28/2024 Fecal Occult Blood Test 03/28/2024 03/28/2023 GFR 06/15/2024 06/15/2023, 05/24, 03/29/2023, Additional history exists Lipid Panel 02/26/2028 02/25/2023, [...] filedocumented as of this encounter Care Teams Sql Report Writer Relationship Specialty Start Date End Date Rob Chisholm MD [address] [place] [place] [address] PCP - General Family Medicine 06/23/22 documented as of this encounter
--- OUTSIDE RECORDS SUMMARY | 2023-11-24 15:26 | External Medical Summary | Summary of Care ---
Author Name Unknown Organization [facility] Address [address] [place] [address] Phone [phone] Care Team Providers Care Calciminer Name Role Phone Rob Chisholm MD Primary Care Provider + Encounter Details Date Type Department Care Team (Late st Contact Info) Description 10/31/2023 Telephone Family Practice [facility] [address] [facility] [place] [place] [address] Rob Chisholm MD [address] [place] [facility] [address] Allergies No known active allergiesdocumented as of this encounter (statuses as of 10/31/2023) Medications Medication Sig Dispensed Refills Start Date End Date Status OneTouch Ultra 2 w/Device KitIndications:Type 2 diabetes mellitus with diabetic mononeuropathy, without long-term current use of insulin ([facility]) Check glucose one to four times daily as needed 1 Each 0 08/09/2022 Active OneTouch UltraSoft LancetsIndications:T ype 2 diabetes mellitus with diabetic mononeuropathy, without long-term current use of insulin ([facility]) Check glucose one to four times daily as needed 100 Each 11 08/09/2022 Active OneTouch Ultra Blue In Vitro Strip (Glucose Blood)Indications:Ty pe 2 diabetes mellitus with diabetic mononeuropathy, without long-term current use of insulin ([facility]) Check glucose one to four times daily as needed 100 Strip 11 08/09/2022 Active OneTouch Delica Lancing DevIndications:Type 2 diabetes mellitus with diabetic mononeuropathy, without long-term current use of insulin ([facility]) Check glucose one to four times daily [...] mononeuropathy, without long-term current use of insulin ([facility]) Take 1 Tablet by mouth in the [...] THE MORNING 30 Tablet 11 10/31/2023 Active documented as of this encounter (statuses as of 10/31/2023) Active Problems Problem Noted Date Diagnosed Date [...] as of this encounter (statuses as of 10/31/2023) Immunizations Name Administration Dates Next Due COVID-19 mRNA, LNP-s, No Pre serve, 2-Dose Series (Moderna) 02/23/2021,01/19/2021 COVID-19, MRNA-LNP, 23-24, P F, 30 MCG/0.3 mL, 12 YRS AND ABOVE, IM ([facility]) 08/04/2023 COVID-19, mRNA, LNP-s, PF, B [...] encounter Miscellaneous Notes * Telephone Encounter - Armond Castano OSA - 10/31/2023 12:56 PM EST Pt prefers to wait until after GI appt next week to schedule EGD and colonoscopy documented in this encounter Plan of Treatment Upcoming Encounters Date Type Department Care Team (Latest Contact Info) Description 11/09/2023 3:00 PM EST Office Visit Gastroenterology, [facility] [address] [address] Tessie Dempsey CRNP [address] [place] [address] 11/24/2023 8:30 AM EST Imaging Radiology [facility] [address] [address] 12/09/2023 8:30 AM EST Office Visit Otolaryngology [facility] [address] [address] Kendall Armstrong, [address] [place] [address] 01/05/2024 9:20 AM EDT Office Visit Family Practice [facility] [address] [place] [address] Rob Chisholm MD [address] [place] [address] 01/12/2024 12:30 PM EDT Office Visit Dermatology, [facility] [address] [place] [address] [place] [address] Carlene Lorenzo PA-C [address] [place] [address] [place] [address] 01/16/2024 9:00 AM EDT Office Visit Pharmacy, [facility] [address] [place] [place] [address] [facility] [address] [place] [address] 02/21/2024 2:00 PM EDT Hospital Encounter ENDO OSSC, Endoscopy Room [facility] [address] [place] [phone] Temi Rao MD [address] [place] [address] 02/21/2024 2:00 PM EDT - 02/21/2024 3:00 PM EDT Surgery ENDO OSSC, Endoscopy Room [facility] [address] [place] [phone] Temi Rao MD [address] [place] [phone] COLONOSCOPY FLEXIBLE PROXIMAL DIAGNOSTIC Scheduled Procedures Name Priority Associated Diagnoses Date/Ti me COLONOSCOPY FLEXIBLE PROXIMA L DIAGNOSTIC Diarrhea Nausea and vomiting 02/21/2024 2:00 PM EDT ESOPHAGOGASTRODUODENOSCOPY ( EGD), FLEXIBLE, TRANSORAL, DIAGNOSTIC Diarrhea Nausea and vomiting 02/21/2024 2:00 PM EDT Health Maintenance Due Date Last Done Comments Hepatitis B (1 of 3 - 3-dose series) 1967 Depression Screening 1979 Cologuard 2012 Colonoscopy 2012 Sigmoidoscopy 2012 Diabetic Foot Exam 08/09/2023 08/09/2022 Diabetic Eye Exam 11/30/2023 11/30/2022 HbA1c 12/16/2023 06/15/2023, 05/0 02/2023, 11/18/2022, Additional history exists Albumin/Creatinine Ratio 02/26/2024 023, 12/30/2022, 11/19/2022, Additional history exists Colorectal Cancer Screening 03/28/2024 Fecal Occult Blood Test 03/28/2024 03/28/2023 GFR 10/31/2024 10/31/2023, 0812/2022, 06/09/2023, Additional history exists Lipid Panel 02/26/2028 02/25/2023, [...] filedocumented as of this encounter Care Teams Calciminer Relationship Specialty Start Date End Date Rob Chisholm MD [address] [place] [address] PCP - General Family Medicine 06/23/22 documented as of this encounter
--- OUTSIDE RECORDS SUMMARY | 2023-11-24 15:26 | External Medical Summary ---
Author Name Unknown Address Unknown Organization K0G:[facility] [address] [place] [address] Laboratory Report Ordering Provider Test Date Status TITUS MCINTOSH 10/31/2023 12:57:42 Final Observation Date Value Abnormality Reference (Units ) Status WBC, Total 10/31/2023 12:57:42 15.47 Above high normal 4 .00-10.80 (K/uL) Final RBC 10/31/2023 12:57:42 4.46 4.50-5.25 (M/uL) Final Hemoglobin 10/31/2023 12:57:42 14.7 14.0-16.8 (g/dL) Final HCT 10/31/2023 12:57:42 42.1 40.0-48.4 (%) Final MCV 10/31/2023 12:57:42 94.4 82.0-99.5 (fL) Final MCH 10/31/2023 12:57:42 33.0 27.0-34.0 (pg) Final MCHC 10/31/2023 12:57:42 34.9 32.0-36.0 (g/dL) Final RDW 10/31/2023 12:57:42 11.9 11.5-15.5 (%) Final Platelets 10/31/2023 12:57:42 332 140-400 (K /uL) Final MPV 10/31/2023 12:57:42 8.3 6.6-11.1 ( fL) Final Performing Location [facility] [address] [place] [address]
--- OUTSIDE RECORDS SUMMARY | 2023-11-24 15:26 | External Medical Summary ---
Author Name Unknown Address Unknown Organization K0G:[facility] [place] [address] [place] [address] Laboratory Report Ordering Provider Test Date Status TITUS MCINTOSH 10/31/2023 12:57:42 Final Observation Date Value Abnormality Reference (Units ) Status BUN 10/31/2023 12:57:42 14 6-20 (mg/dL) Final Creatinine 10/31/2023 12:57:42 0.8 0.6-1.2 (mg/dL) Final Glomerular filtration rate/1.73 sq M.predicted [Volume Rate/Area] in Serum, Plasma or Blood by Creatinine-based formula (CKD-EPI) 10/31/2023 12:57:42 >90 >=60 (mL/min) Final eGFR is calculated based on the CKD-EPI 2020 equation SODIUM 10/31/2023 12:57:42 138 135-146 (m mol/L) Final Potassium 10/31/2023 12:57:42 4.4 3.5-5.1 (m mol/L) Final Cl 10/31/2023 12:57:42 98 98-107 (mm ol/L) Final CO2 10/31/2023 12:57:42 26 22-32 (mmo l/L) Final Anion gap 10/31/2023 12:57:42 14 7-15 (mmol /L) Final Glucose 10/31/2023 12:57:42 196 Above high normal 70 -120 (mg/dL) Final Albumin 10/31/2023 12:57:42 4.8 3.8-5.0 (g /dL) Final AST (Aspartate aminotransferase) 10/31/2023 12:57:42 14 10-50 (U/L) Fin al Alk Phos 10/31/2023 12:57:42 76 35-130 (U/ L) Final Bilirubin, Total 10/31/2023 12:57:42 0.4 <=1 .2 (mg/dL) Final Calcium 10/31/2023 12:57:42 9.9 8.4-10.2 ( mg/dL) Final Protein 10/31/2023 12:57:42 7.1 6.0-8.3 (g /dL) Final ALT (Alanine aminotransferase) 10/31/2023 12:57:42 23 10-50 (U/L) Mario rivas Performing Location [facility] [place] [address] [facility] [address]
--- OUTSIDE RECORDS SUMMARY | 2023-11-24 15:26 | External Medical Summary | Summary of Care ---
Author Name Unknown Organization [facility] Address [address] [place] [address] Phone [phone] Care Team Providers Care Keg Varnisher Name Role Phone Rob Chisholm MD Primary Care Provider + Reason for Visit * Reason Onset Date Comments Advice 10/26/2023 Encounter Details Date Type Department Care Team (Late st Contact Info) Description 10/26/2023 Telephone Family Practice [facility] [address] [facility] [place] [address] Rob Chisholm MD [address] [place] [facility] [place] [address] Advice Allergies No known active allergiesdocumented as of this encounter (statuses as of 10/28/2023) Medications Medication Sig Dispensed Refills Start Date [...] as of this encounter (statuses as of 10/28/2023) Active Problems Problem Noted Date Diagnosed Date [...] as of this encounter (statuses as of 10/28/2023) Immunizations Name Administration Dates Next Due COVID-19 mRNA, LNP-s, No Pre serve, 2-Dose Series (Moderna) 02/23/2021,01/19/2021 COVID-19, MRNA-LNP, 23-24, P F, 30 MCG/0.3 mL, 12 YRS AND ABOVE, IM ([facility] 08/04/2023 COVID-19, mRNA, LNP-s, PF, B ooster, [...] Telephone Encounter - Armond Castano OSA - 10/28/2023 9:12 AM EST ER f/u scheduled * Telephone Encounter - Tessie Alvares LPN - 10/26/2023 2:55 PM EST Patient went to ER and left without being seen. Please schedule ER follow up * Telephone Encounter - Tessie Alvares LPN [...] 10:46 AM EST ER report obtained from [facility]. Pt left before given a bed in the ER. Was only briefly examined in triage and given fluids. ER notes show pt had high BG and WBC. Pt did have a quad screen done in triage which came back negative. Will route to PCP for input/advice. Please assist with scheduling ER follow up with PCP or CAR DETAILER. * Telephone Encounter - Pily Newton OSA - 10/26/2023 9:48 AM EST Pt is calling as he is nauseous/ tired/ can not eating/ vomiting since 10/22/23. He did go to [facility] ED yesterday but only gave him an IV. [...] Team (Late st Contact Info) Description 10/31/2023 11:40 AM EST Office Visit Family Practice [facility] [address] [address] Yue Torrez CRNP [address] [place] [address] 11/24/2023 8:30 AM EST Imaging Radiology [facility] [address] [address] 12/09/2023 8:30 AM EST Office Visit Otolaryngology [facility] [address] [address] Kendall Armstrong, [address] [place] [address] 01/05/2024 9:20 AM EDT Office Visit Family Practice [facility] [address] [address] Rob Chisholm MD [address] [place] [address] 01/12/2024 12:30 PM EDT Office Visit Dermatology, [place] [place] [address] [place] [address] [place] [address] Carlene Lorenzo PA-C [address] [place] [address] [place] [address] 01/16/2024 9:00 AM EDT Office Visit Pharmacy, [facility] [address] [address] [facility] [address] [address] Health Maintenance Due Date Last Done Comments [...] filedocumented as of this encounter Care Teams Keg Varnisher Relationship Specialty Start Date End Date Rob Chisholm MD [address] [place] [address] PCP - General Family Medicine 06/23/22 documented as of this encounter
--- OUTSIDE RECORDS SUMMARY | 2023-11-24 15:26 | External Medical Summary | Summary of Care ---
Author Name Unknown Organization [facility] Address [address] [place] [address] Phone [phone] Care Team Providers Care Electric Meter Tester Name Role Phone Rob Chisholm MD Primary Care Provider + Reason for Referral * Evaluate & Treat - Unlimited Visits (Within 10 days (routine)) - Authorized Specialty Diagnoses / Procedures Referred By Contdaniel t Referred To Contact Pharmacist / Pharmacy Diagnoses Type 2 diabetes mellitus with diabetic mononeuropathy, without long-term current use of insulin ([facility]) Yue Torrez CRNP [address] [place] [address] Referral ID Status Reason Start Date Expiration Date Visits Requested Visits Authorized [id number] Authorized Specialty Services Required 11/08/2023 99 99 Question Answer Referral Priority Within 10 days (routine) Where should this appointment be scheduled? [facility] Referring Provider Role: Primary Care Reason for Referral: DM Target A1c: < 7 Comments Pharmacist Medication Therapy Management: Minimum frequency patient should be seen in person for medication management: as appropriate per clinical condition and patient status By my signature, I understand that my patient Román Garcia will have his medication therapy managed by the [facility] Medication Therapy [facility] ([facility]) per established policies, procedures, and protocols. I also certify that this referral may serve as an initiation of service for the management of drug therapy in the above noted patient. [facility] providers will be responsible for scheduling patient visits, obtaining appropriate laboratory studies, and adjusting medication management therapy per patient's need, in addition to those roles spelled out in the clinic policy, procedures, and drug management protocols. I understand that the service provided by the [facility] is voluntary and have informed patient that they can refuse the service at their discretion. I am aware that the [facility] will provide me with a copy of the patient encounter via my NaviExpert InRoughHandset. I authorize the [facility] to carry out these activities on my behalf. I consider this program to be a necessary part of the patient's medical care. DOMINGO Price Reason for Visit * Reason Onset Date Comments Test Results 11/08/2023 Encounter Details Date Type Department Care Team (Late st Contact Info) Description 11/08/2023 Telephone Family [facility] [address] [place] [address] Yue Torrez CRNP [address] [place] [address] Test Results Allergies No known active allergiesdocumented as of this encounter (statuses as of 11/15/2023) Medications Medication Sig Dispensed Refills Start Date End Date Status OneTouch Ultra 2 w/Device KitIndications:Typ e 2 diabetes mellitus with diabetic mononeuropathy, without long-term current use of insulin ([facility]) Check glucose one to four times daily as needed 1 Each 0 08/09/2022 Active OneTouch UltraSoft LancetsIndications :Type 2 diabetes mellitus with diabetic mononeuropathy, without long-term current use of insulin ([facility]) Check glucose one to four times daily as needed 100 Each 11 08/09/2022 Active OneTouch Ultra Blue In Vitro Strip (Glucose Blood)Indications: Type 2 diabetes mellitus with diabetic mononeuropathy, without long-term current use of insulin ([facility]) Check glucose one to four times daily as needed 100 Strip 11 08/09/2022 Active OneTouch Delica Lancing DevIndications:Typ e 2 diabetes mellitus with diabetic mononeuropathy, without long-term current use of insulin ([facility]) Check glucose one to four [...] mononeuropathy, without long-term current use of insulin ([facility]) Take 1 Tablet by mouth in the morning. 30 Tablet 5 09/26/2023 4 Discontinued documented as of this encounter (statuses as of 11/15/2023) Active Problems Problem Noted Date Diagnosed Date [...] as of this encounter (statuses as of 11/15/2023) Immunizations Name Administration Dates Next Due COVID-19 [...] encounter Miscellaneous Notes * Telephone Encounter - Ewa Oropeza PHARM Tech - 11/15/2023 4:18 PM EST Pt is scheduled for 12/13. That was the soonest appt available. Thank you, Ewa Oropeza Employee Communications Manager Centralized Clinical Pharmacy Services 11/15/2023,4:18 PM * Telephone Encounter - Yue Torrez CRNP - 11/15/2023 2:26 PM EST Stop melisa start roberto Waltersabas sent to bryanna -- please review to start with the 2.5mg pen first and dosing instructions including increasing to 5mg after 4 weeks if tolerating Also sent CGM so better track blood sugars Will need to use with dexcom jenelle on his phone Number to call to see if sooner MTM appt is [phone] * Telephone Encounter - Tessie Alvares LPN [...] to ER DM very uncontrolled Referral to MTM placed documented in this encounter Plan of Treatment Upcoming Encounters Date Type Department Care Team (Late st Contact Info) Description 11/24/2023 8:30 AM EST Imaging Radiology [facility] [address] [facility] [place] [address] 12/09/2023 8:30 AM EST Office Visit Otolaryngology [facility] [address] [facility] [place] [address] Kendall Armstrong DO [address] [place] [address] 12/13/2023 2:20 PM EST Pharmacy Pharmacy, [facility] [address] [facility] [place] [address] [facility] [address] [facility] [place] [address] 01/05/2024 9:20 AM EDT Office Visit Family Practice [facility] [address] [facility] [place] [address] Rob Chisholm MD [address] [place] [address] 01/12/2024 12:30 PM EDT Office Visit Dermatology, [place] [address] [place] [address] [place] [address] Carlene Lorenzo PA-C [address] [place] [address] [place] [address] Scheduled Orders Name Type Priority Associated Diagnoses [...] ORDERABL ES [facility] [place] [address] [address] documented in this encounter Visit Diagnoses Diagnosis Leukocytosis, unspecified type- Primary Nausea and vomiting, unspecified vomiting type Type 2 diabetes mellitus with diabetic mononeuropathy, without long-term current use of insulin (HCC) Diarrhea, unspecified type documented in this encounter Care Teams Electric Meter Tester Relationship Specialty Start Date End Date Rob Chisholm MD [address] [place] [address] PCP - General Family Medicine 06/23/22 documented as of this encounter
--- OUTSIDE RECORDS SUMMARY | 2023-11-24 15:26 | External Medical Summary | Summary of Care ---
Author Name Unknown Organization [facility] Address [address] [place] [address] Phone [phone] Care Team Providers Care Horseradish Maker Name Role Phone Rob Chisholm MD Primary Care Provider + Reason for Visit * Reason Comments Outpatient Testing Encounter Details Date Type Department Care Team (Late st Contact Info) Description 11/09/2023 1:10 PM EST Laboratory Laboratory, [facility] [address] [place] [address] [facility] [address] [place] [address] Type 2 diabetes mellitus with diabetic mononeuropathy, without long-term current use of insulin (HCC); Leukocytosis, unspecified type; Nausea and vomiting, unspecified vomiting type Allergies No known active allergiesdocumented as of this encounter (statuses as of 11/09/2023) Medications Medication Sig Dispensed Refills Start Date End Date Status Huxiu.comTouch Ultra 2 w/Device KitIndications:Type 2 diabetes mellitus [...] mononeuropathy, without long-term current use of insulin ([facility]) Check glucose one to four times daily as needed 100 Strip 11 08/09/2022 Active OneTouch Alexander [place]ancing DevIndications:Type 2 diabetes mellitus with diabetic mononeuropathy, without long-term current use of insulin ([facility]) Check glucose one to four times daily [...] mononeuropathy, without long-term current use of insulin ([facility]) Take 1 Tablet by mouth in the [...] as of this encounter (statuses as of 11/09/2023) Active Problems Problem Noted Date Diagnosed Date [...] as of this encounter (statuses as of 11/09/2023) Immunizations Name Administration Dates Next Due COVID-19 mRNA, LNP-s, No Pre serve, 2-Dose Series (Moderna) 02/23/2021,01/19/2021 COVID-19, MRNA-LNP, 23-24, P F, 30 MCG/0.3 mL, 12 YRS AND ABOVE, IM ([facility]) 08/04/2023 COVID-19, mRNA, LNP-s, PF, B ooster, [...] Description 11/24/2023 8:30 AM EST Imaging Radiology [facility] [address] [place] [address] 12/09/2023 8:30 AM EST Office Visit Otolaryngology [facility] [address] [place] [address] Kendall Armstrong DO [address] [place] [address] 01/05/2024 9:20 AM EDT Office Visit Family Practice [facility] [address] [address] Rob Chisholm MD [address] [place] [address] 01/12/2024 12:30 PM EDT Office Visit Dermatology, [place] [address] [place] [address] [place] [address] Carlene Lorenzo PA-C [address] [place] [address] [place] [address] 01/16/2024 9:00 AM EDT Office Visit Pharmacy, [facility] 132 [facility] [place] [address] [facility] 132 [facility] [place] [address] Pending Results Name Type Priority Associated Diagnoses Date /Time HEMOGLOBIN A1C Lab Routine Type 2 diabetes mellitus with diabetic mononeuropathy, without long-term current use of insulin (HCC) 11/09/2023 12:33 PM EST CBC WITH WBC DIFFERENTIAL Lab Routine Leukocytosis, unspecified type Nausea and vomiting, unspecified vomiting type 11/09/2023 12:33 PM EST COMPREHENSIVE METABOLIC PANEL Lab Routine Nausea and vomiting, unspecified vomiting type Type 2 diabetes mellitus with diabetic mononeuropathy, without long-term current use of insulin (HCC) 11/09/2023 12:33 PM EST CBC Lab Routine Leukocytosis, unspecified type Nausea and vomiting, unspecified vomiting type 11/09/2023 12:33 PM EST DIFFERENTIAL, AUTOMATED Lab Routine Leukocytosis, unspecified type Nausea and vomiting, unspecified vomiting type 11/09/2023 12:33 PM EST Health Maintenance Due Date Last Done Comments Hepatitis B (1 of 3 - 3-dose series) 1967 Depression Screening 1979 Cologuard 2012 Colonoscopy 2012 Sigmoidoscopy 2012 Diabetic Foot Exam 08/09/2023 08/09/2022 Diabetic Eye Exam 11/30/2023 11/30/2022 Albumin/Creatinine Ratio 02/26/2024 023, 12/30/2022, 11/19/2022, Additional history exists Colorectal Cancer Screening 03/28/2024 Fecal Occult Blood Test 03/28/2024 03/28/2023 HbA1c 04/30/2024 10/31/2023, 0812/2022, 02/25/2023, Additional history exists GFR 10/31/2024 10/31/2023, 05/25, 06/09/2023, Additional history exists Lipid Panel 02/26/2028 [...] without long-term current use of insulin (HCC) Leukocytosis, unspecified type Nausea and vomiting, unspecified vomiting type documented in this encounter Care Teams Horseradish Maker Relationship Specialty Start Date End Date Rob Chisholm MD [address] [place] [address] PCP - General Family Medicine 06/23/22 documented as of this encounter
--- OUTSIDE RECORDS SUMMARY | 2023-11-24 15:26 | External Medical Summary | Summary of Care ---
Author Name Unknown Organization [facility] Address [address] [place] [address] Phone [phone] Care Team Providers Care Security Control Assessor Name Role Phone Rob Chisholm MD Primary Care Provider + Reason for Visit * Reason Onset Date Comments Procedure 11/07/2023 Encounter Details Date Type Department Care Team (Late st Contact Info) Description 11/07/2023 Telephone Gastroenterology, [facility] [address] [place] [address] Services, Scheduling [address] [place] [address] Procedure Allergies No known active allergiesdocumented as of this encounter (statuses as of 11/07/2023) Medications Medication Sig Dispensed Refills Start Date End Date Status OneTouch Ultra 2 w/Device KitIndications:Type 2 diabetes mellitus with diabetic mononeuropathy, without long-term current use of insulin ([facility]) Check glucose one to four times [...] long-term current use of insulin ([facility]) Check glucose one to four times [...] long-term current use of insulin ([facility]) Take 1 Tablet by mouth in [...] as of this encounter (statuses as of 11/07/2023) Active Problems Problem Noted Date Diagnosed Date [...] as of this encounter (statuses as of 11/07/2023) Immunizations Name Administration Dates Next Due COVID-19 mRNA, LNP-s, No Pre serve, 2-Dose Series (Moderna) 02/23/2021,01/19/2021 COVID-19, MRNA-LNP, 23-24, P F, 30 MCG/0.3 mL, 12 YRS AND ABOVE, IM ([facility]) 08/04/2023 COVID-19, mRNA, LNP-s, PF, B ooster, [...] encounter Miscellaneous Notes * Telephone Encounter - Lyric Deleon OSA - 11/07/2023 2:52 PM EST Cx'd ELIZABETH Hays 11/07/2023 2:52 PM * Telephone Encounter - Karthikeyan Combs OSA - 11/07/2023 2:34 PM EST Carl pt called in to cancel his procedure for 02/21/24. At this time he does not want to reschedule. Please advise. Thank you documented in this encounter Plan of Treatment Upcoming Encounters Date Type Department Care Team (Late st Contact Info) Description 11/24/2023 8:30 AM EST Imaging Radiology [facility] [address] [place] [address] 12/09/2023 8:30 AM EST Office Visit Otolaryngology [facility] [address] [place] [address] Kendall Armstrong, 132 [facility] [place] [address] 01/05/2024 9:20 AM EDT Office Visit Family Practice [facility] [address] [place] [address] Rob Chisholm MD [address] [place] [address] 01/12/2024 12:30 PM EDT Office Visit Dermatology, [facility] [address] [place] [address] [place] [address] Carlene Lorenzo PA-C [address] [place] [address] [place] [address] 01/16/2024 9:00 AM EDT Office Visit Pharmacy, [facility] [address] [facility] [place] [address] [facility] [address] [place] [address] Health Maintenance Due Date Last Done Comments Hepatitis B (1 of 3 - 3-dose series) 1967 Depression Screening 1979 Cologuard 2012 Colonoscopy 2012 Sigmoidoscopy 2012 Diabetic Foot Exam 08/09/2023 08/09/2022 Diabetic Eye Exam 11/30/2023 11/30/2022 Albumin/Creatinine Ratio 02/26/2024 023, 12/30/2022, 11/19/2022, Additional history exists Colorectal Cancer Screening 03/28/2024 Fecal Occult Blood Test 03/28/2024 03/28/2023 HbA1c 04/30/2024 10/31/2023, 05/25, 02/25/2023, Additional history exists GFR 10/31/2024 10/31/2023, [...] filedocumented as of this encounter Care Teams Security Control Assessor Relationship Specialty Start Date End Date Rob Chisholm MD [address] [place] [address] PCP - General Family Medicine 06/23/22 documented as of this encounter
--- OUTSIDE RECORDS SUMMARY | 2023-11-24 15:26 | External Medical Summary | Summary of Care ---
Author Name Unknown Organization [facility] Address [address] [place] [address] Phone [phone] Care Team Providers Care Waterworks Employee Name Role Phone Rob Chisholm MD Primary Care Provider + Reason for Visit * Reason Comments Outpatient Testing Encounter Details Date Type Department Care Team (Late st Contact Info) Description 10/31/2023 1:20 PM EST Laboratory Laboratory, [facility] [address] [place] [address] [facility] [address] [place] [address] Leukocytosis, unspecified type; Type 2 diabetes mellitus with diabetic mononeuropathy, without long-term current use of insulin (HCC); Nausea and vomiting, unspecified vomiting type Allergies No known active allergiesdocumented as of this encounter (statuses as of 10/31/2023) Medications Medication Sig Dispensed Refills Start Date End Date Status Gigi HillTouch Ultra 2 w/Device KitIndications:Type 2 diabetes mellitus [...] without long-term current use of insulin ([facility]) Check glucose one to four times daily as needed 100 Strip 11 08/09/2022 Active OneTouch Alexander Lancing DevIndications:Type 2 diabetes mellitus with diabetic mononeuropathy, without long-term current use of insulin ([facility]) Check glucose one to four [...] without long-term current use of insulin ([facility]) Take 1 Tablet by mouth [...] MCG/0.3 mL, 12 YRS AND ABOVE, IM ([facility]) 08/04/2023 COVID-19, mRNA, LNP-s, PF, B [...] Team (Late st Contact Info) Description 11/09/2023 3:00 PM EST Office Visit Gastroenterology, [facility] [address] [place] [address] Tessie Dempsey CRNP [address] [place] [address] 11/24/2023 8:30 AM EST Imaging Radiology [facility] [address] [place] [address] 12/09/2023 8:30 AM EST Office Visit Otolaryngology [facility] [address] [place] [address] Kendall Armstrong DO [address] [place] [address] 01/05/2024 9:20 AM EDT Office Visit Family Practice [facility] [address] [place] [address] Rob Chisholm MD [address] [place] [address] 01/12/2024 12:30 PM EDT Office Visit Dermatology, [facility] [address] [place] [address] [place] [address] Carlene Lorenzo PA-C [address] [place] [address] [place] [address] 01/16/2024 9:00 AM EDT Office Visit Pharmacy, [facility] [address] [place] [address] [facility] [address] [place] [address] Pending Results Name Type Priority Associated Diagnoses Date /Time CBC WITH WBC DIFFERENTIAL Lab Routine Leukocytosis, unspecified type 10/31/2023 12:57 PM EST HEMOGLOBIN A1C Lab Routine Type 2 diabetes mellitus with diabetic mononeuropathy, without long-term current use of insulin ([facility]) 10/31/2023 12:57 PM EST COMPREHENSIVE METABOLIC PANEL Lab Routine Nausea and vomiting, unspecified vomiting type Type 2 diabetes mellitus with diabetic mononeuropathy, without long-term current use of insulin ([facility]) 10/31/2023 12:57 PM EST CBC Lab Routine Leukocytosis, unspecified type 10/31/2023 12:57 PM EST DIFFERENTIAL, AUTOMATED Lab Routine Leukocytosis, unspecified type 10/31/2023 12:57 PM EST Health Maintenance Due Date Last [...] as of this encounter Visit Diagnoses Diagnosis Leukocytosis, unspecified type Type 2 diabetes mellitus with diabetic mononeuropathy, without long-term current use of insulin (HCC) Nausea and vomiting, unspecified vomiting type documented in this encounter Care Teams Waterworks Employee Relationship Specialty Start Date End Date Rob Chisholm MD 132 [facility] [place] [address] PCP - General Family Medicine 06/23/22 documented as of this encounter
--- OUTSIDE RECORDS SUMMARY | 2023-11-24 15:26 | External Medical Summary | Summary of Care ---
Author Name Unknown Organization [facility] Address [address] [place] [address] Phone [phone] Care Team Providers Care Meat Curer Name Role Phone Rob Chisholm MD Primary Care Provider + Reason for Referral * Evaluate & Treat - Unlimited Visits (Within 10 days (routine)) - Authorized Specialty Diagnoses / Procedures Referred By Contdaniel t Referred To Contact Pharmacist / Pharmacy Diagnoses Type 2 diabetes mellitus with diabetic mononeuropathy, without long-term current use of insulin ([facility]) Yue Torrez CRNP [address] [place] [address] Referral ID Status Reason Start Date Expiration Date Visits Requested Visits Authorized [id number] Authorized Specialty Services Required 11/08/2023 99 99 Question Answer Referral Priority Within 10 days (routine) Where should this appointment be scheduled? [facility] Referring Provider Role: Primary Care Reason for Referral: DM Target A1c: < 7 Comments Pharmacist Medication Therapy Management: Minimum frequency patient should be seen in person for medication management: as appropriate per clinical condition and patient status By my signature, I understand that my patient Román Garcia will have his medication therapy managed by the [facility] Medication Therapy Disease Management Clinic ([facility]) per established policies, procedures, and protocols. I also certify that this referral may serve as an initiation of service for the management of drug therapy in the above noted patient. [facility] providers will be responsible for scheduling patient visits, obtaining appropriate laboratory studies, and adjusting medication management therapy per patient's need, in addition to those roles spelled out in the clinic policy, procedures, and drug management protocols. I understand that the service provided by the [facility] Clinic is voluntary and have informed patient that they can refuse the service at their discretion. I am aware that the [facility] Clinic will provide me with a copy of the patient encounter via my [employer]. I authorize the [facility] Clinic to carry out these activities on my behalf. I consider this program to be a necessary part of the patient's medical care. DOMINGO Price Reason for Visit * Reason Onset Date Comments Test Results 11/08/2023 Encounter Details Date Type Department Care Team (Late st Contact Info) Description 11/08/2023 Telephone Family [facility] [address] [place] [address] Yue Torrez CRNP [address] [place] [address] Test Results Allergies No known active allergiesdocumented as of this encounter (statuses as of 11/16/2023) Medications Medication Sig Dispensed Refills Start Date End Date Status OneTouch Ultra 2 w/Device KitIndications:Typ e 2 diabetes mellitus with diabetic mononeuropathy, without long-term current use of insulin ([facility]) Check glucose one to four times daily as needed 1 Each 0 08/09/2022 Active OneTouch UltraSoft LancetsIndications :Type 2 diabetes mellitus with diabetic mononeuropathy, without long-term current use of insulin ([facility]) Check glucose one to four times daily as needed 100 Each 11 08/09/2022 Active OneTouch Ultra Blue In Vitro Strip (Glucose Blood)Indications: Type 2 diabetes mellitus with diabetic mononeuropathy, without long-term current use of insulin ([facility]) Check glucose one to four times daily as needed 100 Strip 11 08/09/2022 Active OneTouch Delica Lancing DevIndications:Typ e 2 diabetes mellitus with diabetic mononeuropathy, without long-term current use of insulin ([facility]) Check glucose one to four times [...] long-term current use of insulin ([facility]) Take 1 Tablet by mouth in [...] soonest appt available. Thank you, Ewa Oropeza [facility] 11/15/2023,4:18 PM * [...] to see if sooner MTM appt is [phone] * Telephone Encounter - Tessie Alvares LPN [...] Description 11/24/2023 8:30 AM EST Imaging Radiology [facility] 132 [facility] [place] [address] 12/09/2023 8:30 AM EST Office Visit Otolaryngology [facility] 132 [facility] [place] [address] Kendall Armstrong DO [address] [place] [address] 12/13/2023 2:20 PM EST Pharmacy Pharmacy, [facility] [address] [facility] [place] [address] [facility] [address] [facility] [place] [address] 01/05/2024 9:20 AM EDT Office Visit Family Practice [facility] 132 [facility] [place] [address] Rob Chisholm MD [address] [place] [address] 01/12/2024 12:30 PM EDT Office Visit Dermatology, Flako Nguyen [address] [address] [place] [address] Carlene Lorenzo PA-C [address] [place] [address] [place] [address] Scheduled Orders Name Type Priority Associated Diagnoses [...] [facility] [place] [address] documented in this encounter Visit Diagnoses Diagnosis Leukocytosis, unspecified type- Primary Nausea and vomiting, unspecified vomiting type Type 2 diabetes mellitus with diabetic mononeuropathy, without long-term current use of insulin (HCC) Diarrhea, unspecified type documented in this encounter Care Teams Meat Curer Relationship Specialty Start Date End Date Rob Chisholm MD [address] [place] [address] PCP - General Family Medicine 06/23/22 documented as of this encounter
--- OUTSIDE RECORDS SUMMARY | 2023-11-24 15:26 | External Medical Summary ---
Author Name Unknown Address Unknown Organization [id number]:[facility] - [address] [facility] [address] [place] [address] Laboratory Report Ordering Provider Test Date Status TITUS MCINTOSH 11/09/2023 12:33:22 Final Observation Date Value Abnormality Reference (Units ) Status WBC, Total 11/09/2023 12:33:22 11.33 Above high normal 4.00-10.80 (K/uL) Final RBC 11/09/2023 12:33:22 4.45 4.50-5.25 (M/uL) Final Hemoglobin 11/09/2023 12:33:22 14.5 14.0-16.8 (g/dL) Final HCT 11/09/2023 12:33:22 43.1 40.0-48.4 (%) Final MCV 11/09/2023 12:33:22 96.9 82.0-99.5 (fL) Final MCH 11/09/2023 12:33:22 32.6 27.0-34.0 (pg) Final MCHC 11/09/2023 12:33:22 33.6 32.0-36.0 (g/dL) Final RDW 11/09/2023 12:33:22 12.1 11.5-15.5 (%) Final Platelets 11/09/2023 12:33:22 319 140-400 (K/uL) Final MPV 11/09/2023 12:33:22 8.6 6.6-11.1 (fL) Final Nucleated erythrocytes/100 leukocytes [Ratio] in Blood by Automated count 11/09/2023 12:33:22 0 <=0 (/100 WBCs) Final Performing Location [facility] - [address] [place] [address]
--- OUTSIDE RECORDS SUMMARY | 2023-11-24 15:26 | External Medical Summary | Summary of Care ---
Author Name Unknown Organization [facility] Address [address] [place] [address] Phone [phone] Care Team Providers Care Drum Sealer Name Role Phone Rob Chisholm MD Primary Care Provider + Reason for Visit * Reason Onset Date Comments Advice 10/26/2023 Encounter Details Date Type Department Care Team (Late st Contact Info) Description 10/26/2023 Telephone Family Practice [facility] [address] [facility] [place] [address] Rob Chisholm MD [address] [facility] [place] [address] Advice Allergies No known active allergiesdocumented as of this encounter (statuses as of 10/26/2023) Medications Medication Sig Dispensed Refills Start Date End Date Status OneTouch Ultra 2 w/Device KitIndications:Type 2 diabetes mellitus with diabetic mononeuropathy, without long-term current use of insulin ([facility]) Check glucose one to four times daily as needed 1 Each 0 08/09/2022 Active OneTouch UltraSoft LancetsIndications:T ype 2 diabetes mellitus with diabetic mononeuropathy, without long-term current use of insulin ([facility]) Check glucose one to four times daily as needed 100 Each 11 08/09/2022 Active OneTouch Ultra Blue In Vitro Strip (Glucose Blood)Indications:Ty pe 2 diabetes mellitus with diabetic mononeuropathy, without long-term current use of insulin ([facility]) Check glucose one to four times daily as needed 100 Strip 11 08/09/2022 Active OneTouch Delica Lancing DevIndications:Type 2 diabetes mellitus with diabetic mononeuropathy, without long-term current use of insulin ([facility]) Check glucose one to four times [...] MCG/0.3 mL, 12 YRS AND ABOVE, IM ([facility]) 08/04/2023 COVID-19, mRNA, LNP-s, PF, [...] 10:46 AM EST ER report obtained from [facility]. Pt left before given a bed in the ER. Was only briefly examined in triage and given fluids. ER notes show pt had high BG and WBC. Pt did have a quad screen done in triage which came back negative. Will route to PCP for input/advice. Please assist with scheduling ER follow up with PCP or TRAM OPERATOR. * Telephone Encounter - Pily Newton OSA - 10/26/2023 9:48 AM EST Pt is calling as he is nauseous/ tired/ can not eating/ vomiting since 10/22/23. He did go to [facility] ED yesterday but only gave him an [...] Description 11/24/2023 8:30 AM EST Imaging Radiology [facility] [address] [place] [address] 12/09/2023 8:30 AM EST Office Visit Otolaryngology [facility] [address] [place] [address] Kendall Armstrong DO [address] [place] [address] 01/05/2024 9:20 AM EDT Office Visit Family Practice [facility] [address] [place] [address] Rob Chisholm MD [address] [place] [address] 01/12/2024 12:30 PM EDT Office Visit Dermatology, Flako [place] [address] [address] [place] [address] Carlene Lorenzo PA-C [address] [place] [address] [place] [address] 01/16/2024 9:00 AM EDT Office Visit Pharmacy, [facility] 132 [facility] [place] [address] [facility] [address] [facility] [place] [address] Health Maintenance Due Date Last Done Comments Hepatitis B (1 of 3 - 3-dose series) 1967 Depression Screening 1979 Cologuard 2012 Colonoscopy 2012 Sigmoidoscopy 2012 Diabetic Foot Exam 08/09/2023 08/09/2022 Diabetic Eye Exam 11/30/2023 11/30/2022 HbA1c 12/16/2023 06/15/2023, 0502/2023, 11/18/2022, Additional history exists Albumin/Creatinine Ratio 02/26/2024 [...] filedocumented as of this encounter Care Teams Drum Sealer Relationship Specialty Start Date End Date Rob Chisholm MD [address] [place] [address] PCP - General Family Medicine 06/23/22 documented as of this encounter
--- OUTSIDE RECORDS SUMMARY | 2023-11-24 15:26 | External Medical Summary ---
Author Name Unknown Address Unknown Organization [id number]:[facility] - [address] [place] [address] Laboratory Report Ordering Provider Test Date Status TITUS MCINTOSH 10/31/2023 12:57:42 Final Observation Date Value Abnormality Reference (Units ) Status Nucleated erythrocytes/100 leukocytes [Ratio] in Blood by Automated count 10/31/2023 12:57:42 Final Performing Location [facility] 57[facility] 0 - [address] [place] [address]
--- OUTSIDE RECORDS SUMMARY | 2023-11-24 15:26 | External Medical Summary ---
Author Name Unknown Address Unknown Organization [id number]:[facility] - [address] [place] [address] Laboratory Report Ordering Provider Test Date Status TITUS MCINTOSH 10/31/2023 12:57:42 Final Observation Date Value Abnormality Reference (Units ) Status SYNC LEUKOCYTES IN BLOOD BY AUTOMATED COUNT 10/31/2023 12:57:42 15.47 Above high normal 4.00-10.80 (K/uL) Final Segs 10/31/2023 12:57:42 71.9 40.0-75.0 (%) Final Lymphs % 10/31/2023 12:57:42 19.2 18.0-42.0 (%) Final Monos 10/31/2023 12:57:42 7.8 1.0-11.0 (%) Final Eosinophils 10/31/2023 12:57:42 0.8 0.0-6.0 (%) Final Basos 10/31/2023 12:57:42 0.3 0.0-2.0 (%) Final Absolute Segs 10/31/2023 12:57:42 11.14 Above high normal 1.80-7.70 (K/uL) Final Lymphs, absolute 10/31/2023 12:57:42 2.97 1.00-4.80 (K/ul) Final Monos, Abs 10/31/2023 12:57:42 1.20 Above high normal 0.00-1.10 (K/uL) Final Eos, Abs 10/31/2023 12:57:42 0.12 0.00-0.70 (K/uL) Final Basos, Abs 10/31/2023 12:57:42 0.04 0.00-0.20 (K/uL) Final Performing Location [facility] 0 - [address] [place] [address]
--- OUTSIDE RECORDS SUMMARY | 2023-11-24 15:26 | External Medical Summary ---
Author Name Unknown Address Unknown Organization K01:[facility] - [address] [facility] [address] Laboratory Report Ordering Provider Test Date Status TITUS MCINTOSH 11/09/2023 12:33:22 Final Observation Date Value Abnormality Reference (Units ) Status SYNC LEUKOCYTES IN BLOOD BY AUTOMATED COUNT 11/09/2023 12:33:22 11.33 Above high normal 4.00-10.80 (K/uL) Final Segs 11/09/2023 12:33:22 63.1 40.0-75.0 (%) Final Lymphs % 11/09/2023 12:33:22 25.9 18.0-42.0 (%) Final Monos 11/09/2023 12:33:22 7.9 1.0-11.0 (%) Final Eosinophils 11/09/2023 12:33:22 0.8 0.0-6.0 (%) Final Basos 11/09/2023 12:33:22 0.4 0.0-2.0 (%) Final Immature Granulocyte, Percent 11/09/2023 12:33:22 1.9 0.0-2.0 (%) Final Absolute Segs 11/09/2023 12:33:22 7.15 1.80-7.70 (K/uL) Final Lymphs, absolute 11/09/2023 12:33:22 2.93 1.00-4.80 (K/ul) Final Monos, Abs 11/09/2023 12:33:22 0.90 0.00-1.10 (K/uL) Final Eos, Abs 11/09/2023 12:33:22 0.09 0.00-0.70 (K/uL) Final Basos, Abs 11/09/2023 12:33:22 0.05 0.00-0.20 (K/uL) Final Immature Granulocytes, Number 11/09/2023 12:33:22 0.21 Above high normal 0.00-0.20 (K/uL) Final Performing Location LAB[facility]ATORY [facility] - [address] [facility] [address]
--- OUTSIDE RECORDS SUMMARY | 2023-11-24 15:26 | External Medical Summary ---
Author Name Unknown Address Unknown Organization [id number]:LABORATORY [facility] - [address] [facility] [address] Laboratory Report Ordering Provider Test Date Status TITUS MCINTOSH 10/31/2023 12:57:42 Final Observation Date Value Abnormality Reference (Units ) Status HbA1C 10/31/2023 12:57:42 8.8 Above high normal 4. 0-5.6 (%) Final The use of HbA1c to monitor glycemic status is based on normal hemoglobin and HbA composition. This test should not be used in patients with abnormal hemoglobin that affects the half life of the red blood cell or the in vivo glycation rates. Glucose, estimated average 10/31/2023 12:57:42 206 Above high normal <126 (mg/dL) Mario rivas Performing Location LABORATORY [facility] - [address] [facility] [address]
--- OUTSIDE RECORDS SUMMARY | 2023-11-24 15:26 | External Medical Summary ---
Author Name Unknown Address Unknown Organization [id number]:[facility] - [address] [facility] [address] [facility] [address] Laboratory Report Ordering Provider Test Date Status ENRICO LOWRY 11/09/2023 12:33:22 Final Observation Date Value Abnormality Reference (Units ) Status HbA1C 11/09/2023 12:33:22 9.2 Above high normal 4. 0-5.6 (%) Final The use of HbA1c to monitor glycemic status is based on normal hemoglobin and HbA composition. This test should not be used in patients with abnormal hemoglobin that affects the half life of the red blood cell or the in vivo glycation rates. Glucose, estimated average 11/09/2023 12:33:22 217 Above high normal <126 (mg/dL) Mario rivas Performing Location [facility] - [address] [facility] [address]
--- OUTSIDE RECORDS SUMMARY | 2023-11-24 15:26 | External Medical Summary | Summary of Care ---
Author Name Unknown Organization [facility] Address [address] [place] [address] Phone [phone] Care Team Providers Care Steam Pressure Chamber Operator Name Role Phone Rob Chisholm MD Primary Care Provider + Reason for Referral * Ancillary Services (Within 10 days (routine)) - Authorized Specialty Diagnoses / Procedures Referred By Contac t Referred To Contact Gastroenterology Diagnoses Nausea and vomiting, unspecified vomiting type Yue Torrez CRNP [address] [place] [address] Referral ID Status Reason Start Date Expiration Date Visits Requested Visits Authorized [id number] Authorized Ancillary Services Required 10/31/[phone] Question Answer Referral Priority Within 10 days (routine) Where should this appointment be scheduled? [facility] Comments Upper Endoscopy ASGE Guidelines Persistent vomiting of unknown cause On protonix with no improvement ADDITIONAL INFORMATION 1. Is the patient on Coumadin? No 2. Is the patient on Pradaxa? No * Evaluate & Treat - Unlimited Visits (Within 10 days (routine)) - Authorized Specialty Diagnoses / Procedures Referred By Contac t Referred To Contact Gastroenterology Diagnoses Diarrhea, unspecified type Nausea and vomiting, unspecified vomiting type Yue Torrez CRNP [address] [place] [address] Referral ID Status Reason Start Date Expiration Date Visits Requested Visits Authorized [id number] Authorized Specialty Services Required 10/31/[phone] Question Answer Referral Priority Within 10 days (routine) Where should this appointment be scheduled? [facility] For what condition is the patient being referred? All Gastro Conditions * Ancillary Services (Within 10 days (routine)) - Authorized Specialty Diagnoses / Procedures Referred By Curtis alcantara Referred To Contact Gastroenterology Diagnoses Diarrhea, unspecified type Yue Torrez CRNP [address] [place] [address] Referral ID Status Reason Start Date Expiration Date Visits Requested Visits Authorized [id number] Authorized Ancillary Services Required 10/31/[phone] Question Answer Referral Priority Within 10 days (routine) Where should this appointment be scheduled? [facility] Comments ALERT: Do not order for pediatric patients (18 years or younger). Cancel off screen and order PEDS GASTROENTEROLOGY CONSULT (Type: 1 visit only-Evaluate and Treat) The following Pt. Instructions are available: - Gastro Colonoscopy Prep Instructions [[id number]] - Gastro Colonoscopy Prep Instructions (Sudanese Version) [[id number]] Go to the Pt. Instructions section within the Visit Navigator to access. Colonoscopy ASGE Guidelines: Altered bowel habit, chronic diarrhea ADDITIONAL INFORMATION 1. Is the patient on Coumadin? No 2. Is the patient on Pradaxa? No Reason for Visit * Reason Comments Emergency Department Follow-Up [facility] 2022 & 10/26/2022N/V x 3 daysElevated WBC countElevated blood glucose Encounter Details Date Type Department Care Team (Late st Contact Info) Description 10/31/2023 11:40 AM EST Office Visit Family [facility] [address] [place] [address] Yue Torrez CRNP [address] [place] [address] Type 2 diabetes mellitus with diabetic mononeuropathy, without long-term current use of insulin (HCC)*; Diarrhea, unspecified type; Nausea and vomiting, unspecified vomiting type; Leukocytosis, unspecified type Allergies No known active allergiesdocumented as of this encounter (statuses as of 11/08/2023) Medications Medication Sig Dispensed Refills Start Date End Date Status OneTouch Ultra 2 w/Device KitIndications:T ype 2 diabetes mellitus with diabetic mononeuropathy, without long-term current use of insulin ([facility]) Check glucose one to four times daily as needed 1 Each 0 08/09/2022 Active OneTouch UltraSoft LancetsIndicatio ns:Type 2 diabetes mellitus with diabetic mononeuropathy, without long-term current use of insulin ([facility]) Check glucose one to four times daily as needed 100 Each 11 08/09/2022 Active OneTouch Ultra Blue In Vitro Strip (Glucose Blood)Indication s:Type 2 diabetes mellitus with diabetic mononeuropathy, without long-term current use of insulin ([facility]) Check glucose one to four times daily as needed 100 Strip 11 08/09/2022 Active OneTouch Delica Lancing DevIndications:T ype 2 diabetes mellitus with diabetic mononeuropathy, [...] 11 09/19/2023 Active Ketoconazole 2 % External CreamIndications :Tinea corporis Apply topically to affected area 2 times a day. 90 g 5 09/26/2023 Active OneTouch Verio In Vitro Strip (Glucose Blood) Use up to 4 times a day E11.9 100 Strip 11 09/26/2023 Active busPIRone HCl 5 MG Oral Tablet (Buspar)Indicati ons:Anxiety state Take 1 Tablet by mouth in the morning and 1 Tablet before bedtime. 60 Tablet 3 09/26/2023 Active Losartan Potassium 50 MG Oral Tablet (Cozaar) Take 1 Tablet by mouth in the morning. 30 Tablet 5 09/26/2023 Active Aspirin 81 MG Oral Tablet Delayed Release (Aspirin Low Dose)Indications :History of embolic stroke Take 1 Tablet by mouth in the morning. 30 Tablet 11 09/26/2023 Active Atorvastatin Calcium 40 MG Oral Tablet (Lipitor) Take 1 Tablet by mouth every evening. 30 Tablet 11 09/26/2023 Active Pantoprazole Sodium 40 MG Oral Tablet Delayed Release (Protonix) Take 1 Tablet by mouth in the morning. 30 Tablet 5 09/26/2023 Active SITagliptin Phosphate 100 MG Oral Tablet (Januvia)Indicat ions:Type 2 diabetes mellitus with diabetic mononeuropathy, [...] Oral Tablet Extended Release 24 Hour (Glucophage XR)Indications:T ype 2 diabetes mellitus with diabetic mononeuropathy, without long-term current use of insulin (HCC) Take 4 Tablets by mouth in the morning. 360 Tablet 1 10/31/2023 Active PARoxetine HCl 30 MG Oral Tablet (Paxil) take 1 tablet by mouth IN THE MORNING 30 Tablet 11 10/31/2023 Active metFORMIN HCl 500 MG Oral Tablet (Glucophage) Take 2 Tablets by mouth 2 times a day with morning and evening meals. 360 Tablet 3 09/26/2023 10/31/19 24 Discontinued PARoxetine HCl 30 MG Oral Tablet (Paxil) take 1 tablet by mouth IN THE MORNING 30 Tablet 11 09/26/2023 10/31/19 24 Discontinued(Ref ill) documented as of this encounter (statuses as of 11/08/2023) Active Problems Problem Noted Date Diagnosed Date [...] as of this encounter (statuses as of 11/08/2023) Immunizations Name Administration Dates Next Due COVID-19 mRNA, LNP-s, No Pre serve, 2-Dose Series (Moderna) 02/23/2021,01/19/2021 COVID-19, MRNA-LNP, 23-24, P F, 30 MCG/0.3 mL, 12 YRS AND ABOVE, IM ([employer]) 08/04/2023 COVID-19, mRNA, LNP-s, PF, B ooster, 100mcg/0.5mg (Moderna) 05/10/2022,09/11/2021 Covid-19, Mrna, Lnp-s, Pf, B ivalent, 30 Mcg, IM, 12 yrs and above ([employer]) 07/19/2022 DTaP Dipth/Tet/Acell Pertussis (Infanrix), Peds 03/11/2005 [...] Sign Reading Time Taken Comments Blood Pressure 118/72 10/31/2023 11:55 AM EST Pulse 94 10/31/2023 11:55 AM EST Temperature 36.2 C (97.2 F) 10/31/2023 11:[address] Respiratory Rate - - Oxygen Saturation 99% 10/31/2023 11:55 AM EST Inhaled Oxygen Concentration - - Weight 68.9 kg (152 lb) 10/31/2023 11:55 AM EST Height 172.7 cm (5' 8") 10/31/2023 11:55 AM EST Body Mass Index 23.11 10/31/2023 11:55 AM EST documented in this encounter Progress Notes * Yue Torrez CRNP - 10/31/2023 12:04 PM EST Images from the original note were not included. History of Present Illness Román Garcia is a 58 year old male that presents for Emergency Department Follow-Up ([facility] 10/25/2022 & 10/26/2022/N/V x 3 days/Elevated WBC count/Elevated blood glucose) HPI Here for ER follow up after hyperglycemia, elevated WBC, and nausea/vomiting that was concerning for DKA. Similar to prior episode of DKA. Notes he'd been switched from jardiance to januvia after DKAin past. States he has episodes of vomiting once a month or so marcelle after coffee. Wondering if DM meds are causing the vomiting because they are "harsh" on his stomach. Wondering about more "natural" ways to control diabetes. Admits some dietary indiscretions -- loves chocolate eclairs. Mom has hiatal hernia--he is wondering about this as cause of symptoms. Having a lot of diarrhea. Outpatient Medications Marked as Taking for the 10/31/23 encounter (Office Visit) with Yue Torrez CRNP Medication Sig metFORMIN HCl ER 500 MG Oral Tablet Extended Release 24 Hour (Glucophage XR) Take 4 Tablets by mouth in the morning. PARoxetine HCl 30 MG Oral Tablet (Paxil) take 1 tablet by mouth IN THE MORNING Nicotine 21 MG/24HR Transdermal Patch 24 Hour (Nicoderm CQ) Place 1 Patch over 24 hours topically on the skin in the morning. On upper body/upper arm, change once a day for 6 weeks.. Aspirin 81 MG Oral Tablet Delayed Release (Aspirin Low Dose) Take 1 Tablet by mouth in the morning. Atorvastatin Calcium 40 MG Oral Tablet (Lipitor) Take 1 Tablet by mouth every evening. busPIRone HCl 5 MG Oral Tablet (Buspar) Take 1 Tablet by mouth in the morning and 1 Tablet before bedtime. Ketoconazole 2 % External Cream Apply topically to affected area 2 times a day. Losartan Potassium 50 MG Oral Tablet (Cozaar) Take 1 Tablet by mouth in the morning. OneTouch Verio In Vitro Strip (Glucose Blood) Use up to 4 times a day E11.9 Pantoprazole Sodium 40 MG Oral Tablet Delayed Release (Protonix) Take 1 Tablet by mouth in the morning. SITagliptin Phosphate 100 MG Oral Tablet (Januvia) Take 1 Tablet by mouth in the morning. Ketoconazole 2 % External Shampoo (Nizoral) Lather into scalp for 5 minutes. Rinse over body and then wash off. Do this 3-4 times per week Ondansetron HCl 4 MG Oral Tablet Take 1 Tablet by mouth every 8 hours as needed for Nausea. Metoclopramide HCl 10 MG Oral Tablet (Reglan) 1 Tablet. OneTouch Delica Lancing Dev Check glucose one to four times daily as needed OneTouch Ultra 2 w/Device Kit Check glucose one to four times daily as needed OneTouch Ultra Blue In Vitro Strip (Glucose Blood) Check glucose one to four times daily as needed OneTouch UltraSoft Lancets Check glucose one to four times daily as needed Physical Exam Vitals: 10/31/23 1155 Temp: 36.2 C (97.2 F) Pulse: 94 SpO2: 99% BP: 118/72 BMI: 23.12 Physical Exam Vitals reviewed. Constitutional: Appearance: Normal appearance. HENT: Head: Normocephalic and atraumatic. Right Ear: Tympanic membrane, ear canal and external ear normal. Left Ear: Tympanic membrane, ear canal and external ear normal. Nose: Nose normal. Mouth/Throat: Mouth: Mucous membranes are moist. Eyes: Extraocular Movements: Extraocular movements intact. Conjunctiva/sclera: Conjunctivae normal. Pupils: Pupils are equal, round, and reactive to light. Cardiovascular: Rate and Rhythm: Normal rate and regular rhythm. Heart sounds: Normal heart sounds. Pulmonary: Effort: Pulmonary effort is normal. Breath sounds: Normal breath sounds. Musculoskeletal: Cervical back: Neck supple. Lymphadenopathy: Cervical: No cervical adenopathy. Skin: General: Skin is warm and dry. Capillary Refill: Capillary refill takes less than 2 seconds. Neurological: Mental Status: He is alert and oriented to person, place, and time. Psychiatric: Behavior: Behavior normal. Thought Content: Thought content normal. Assessment and Plan Type 2 diabetes mellitus with diabetic mononeuropathy, without long-term current use of insulin ([facility]) Will check some labs Consider MTM referral - HEMOGLOBIN A1C; Future - metFORMIN HCl ER 500 MG Oral Tablet Extended Release 24 Hour (Glucophage XR); Take 4 Tablets by mouth in the morning. - COMPREHENSIVE METABOLIC PANEL; Future Diarrhea, unspecified type - COLONOSCOPY, GI REFERRAL OP - ADULT GASTROENTEROLOGY REFERRAL OP Nausea and vomiting, unspecified vomiting type - COMPREHENSIVE METABOLIC PANEL; Future - ADULT GASTROENTEROLOGY REFERRAL OP - UPPER ENDOSCOPY GI REFERRAL OP Leukocytosis, unspecified type - CBC WITH WBC DIFFERENTIAL; Future Wrap-Up Follow Up: Return if symptoms worsen or fail to improve, for Labs Today. | For: Labs Today Time: I spent a total of 40-54 minutes (exact time 40 mins) on the date of service in preparation, delivery, and documentation of the care provided to Román Garcia excluding any time spent in the performance of separately billed services. documented in this encounter Nursing Notes * Donna Moncada LPN - 10/31/2023 11:51 AM EST The patient has been properly identified by confirmation of name and date of . Chief Complaint Patient presents with Emergency Department Follow-Up [facility] 10/25/2022 & 10/26/2022 N/V x 3 days Elevated WBC count Elevated blood glucose Pt went to ED with the similar feeling to his DKA episode. Did take zofran that helped greatly withthe nausea. Pt still feeling very fatigued, weak, no appetite. Loose stools lower abd cramping. Drinking protein shakes. Is taking Rx meds daily. Pt states he is taking a lot of medications, dose not fully feel comfortable with this. Unsure if this is the reason why his GI system has been uneasy. Glucose has been elevated. Pt is now interested in getting a double endo and colonoscopy. Had seen gastroenterology before. documented in this encounter Plan of Treatment Upcoming Encounters Date Type Department Care Team (Late st Contact Info) Description 11/24/2023 8:30 AM EST Imaging Radiology [facility] [address] [place] [address] 12/09/2023 8:30 AM EST Office Visit Otolaryngology [facility] [address] [place] [address] Kendall Armstrong DO [address] [place] [address] 01/05/2024 9:20 AM EDT Office Visit Family Practice [facility] [address] [place] [address] Rob Chisholm MD [address] [place] [address] 01/12/2024 12:30 PM EDT Office Visit Dermatology, Flako Nguyen [address] [place] [address] [place] [address] Carlene Lorenzo PA-C [address] [address] [place] [address] 01/16/2024 9:00 AM EDT Office Visit Pharmacy, [facility] [address] [place] [address] [facility] [address] [place] [address] Scheduled Referrals Name Type Priority Associated Diagnoses Order Schedule COLONOSCOPY, GI REFERRAL OP Referral Within 10 days (routine) Diarrhea, unspecified type Ordered: 10/31/2023 ADULT GASTROENTEROLOGY REFERRAL OP Referral Within 10 days (routine) Diarrhea, unspecified type Nausea and vomiting, unspecified vomiting type Ordered: 10/31/2023 UPPER ENDOSCOPY GI REFERRAL OP Referral Within 10 days (routine) Nausea and vomiting, unspecified vomiting type Ordered: 10/31/2023 Health Maintenance Due Date Last Done Comments [...] encounter Results * (ABNORMAL) COMPREHENSIVE METABOLIC PANEL (10/31/2023 12:57 PM EST) [facility] BUN 14 6 - 20 mg/dL 10/31/2023 1:53 PM EST [facility] Creatinine 0.8 0.6 - 1.2 mg/dL 10/31/2023 1:53 PM EST [facility] [place] [facility] Estimated Glomerular Filtration Rate >90 >=60 mL/min 10/31/2023 1:53 PM EST [facility] Comment:eGFR is calculated b ased on the CKD-EPI 2020 equation Sodium 138 135 - 146 mmol/L 10/31/2023 1:53 PM EST [facility] [place] [facility] Potassium 4.4 3.5 - 5.1 mmol/L 10/31/2023 1:53 PM EST [facility] [place] Chloride 98 98 - 107 mmol/L 10/31/2023 1:53 PM EST [facility] [place] [facility] CO2 26 22 - 32 mmol/L 10/31/2023 1:53 PM EST [facility] Anion Gap 14 7 - 15 mmol/L 10/31/2023 1:53 PM EST [facility] [place] [facility] Glucose 196(H) 70 - 120 mg/dL 10/31/2023 1:53 PM EST [facility] [place] [facility] Albumin 4.8 3.8 - 5.0 g/dL 10/31/2023 1:53 PM EST [facility] [place] AST 14 10 - 50 U/L 10/31/2023 1:53 PM EST [facility] [place] [facility] Alkaline Phosphatase 76 35 - 130 U/L 10/31/2023 1:53 PM EST [facility] [place] Bilirubin, Total 0.4 <=1.2 mg/dL 10/31/2023 1:53 PM EST [facility] [place] Calcium 9.9 8.4 - 10.2 mg/dL 10/31/2023 1:53 PM EST [facility] [place] [facility] Protein 7.1 6.0 - 8.3 g/dL 10/31/2023 1:53 PM EST [facility] ALT 23 10 - 50 U/L 10/31/2023 1:53 PM EST [facility] Blood Venous blood specimen / Unknown Venipuncture / Unknown 10/31/2023 12:57 PM EST 10/31/2023 12:[address] LAB BLOOD ORDERABL ES [facility] [address] [place] [id number] * (ABNORMAL) HEMOGLOBIN A1C (10/31/2023 12:57 PM EST) Hemoglobin A1C 8.8(H) 4.0 - 5.6 % 11/01/2023 12:45 AM EST [facility] Comment:The use of HbA1c to monitor glycemic status is based on normal hemoglobin and HbA composition. This test should not be used in patients with abnormal hemoglobin that affects the half life of the red blood cell or the in vivo glycation rates. Estimated Average Glucose 206(H) <126 mg/dL 11/01/2023 12:45 AM EST [facility] Blood Venous blood specimen / Unknown Venipuncture / Unknown 10/31/2023 12:57 PM EST 10/31/2023 12:[address] LAB BLOOD ORDERABL ES [facility] [address] [place] [address] documented in this encounter Visit Diagnoses Diagnosis Type 2 diabetes mellitus with diabetic mononeuropathy, without long-term current use of insulin (HCC)- Primary Diarrhea, unspecified type Nausea and vomiting, unspecified vomiting type Leukocytosis, unspecified type documented in this encounter Care Teams Steam Pressure Chamber Operator Relationship Specialty Start Date End Date Rob Chisholm MD [address] [place] [address] PCP - General Family Medicine 06/23/22 documented as of this encounter
--- OUTSIDE RECORDS SUMMARY | 2023-11-24 15:27 | External Medical Summary | Summary of Care ---
Author Name Unknown Organization [facility] Address [address] [place] [address] Phone [phone] Care Team Providers Care Mechanic Helper Name Role Phone Rob Chisholm MD Primary Care Provider + Reason for Visit * Reason Onset Date Comments Medication Update 09/12/2023 Encounter Details Date Type Department Care Team (Late st Contact Info) Description 09/12/2023 Telephone Family Practice [facility] [address] [facility] [address] Rob Chisholm MD [address] [facility] [place] [address] Medication Update Allergies No known active allergiesdocumented as of this encounter (statuses as of 09/14/2023) Medications Medication Sig Dispensed Refills Start Date End Date Status OneTouch Ultra 2 w/Device KitIndications:Type 2 diabetes mellitus with diabetic mononeuropathy, without long-term current use of insulin ([facility]) Check glucose one to four times daily as needed 1 Each 0 08/09/2022 Active OneTouch UltraSoft LancetsIndications:T ype 2 diabetes mellitus with diabetic mononeuropathy, without long-term current use of insulin ([facility]) Check glucose one to four times daily as needed 100 Each 11 08/09/2022 Active OneTouch Ultra Blue In Vitro Strip (Glucose Blood)Indications:Ty pe 2 diabetes mellitus with diabetic mononeuropathy, without long-term current use of insulin ([facility]) Check glucose one to four times daily as needed 100 Strip 11 08/09/2022 Active Hema Patterson DevIndications:Type 2 diabetes mellitus with diabetic mononeuropathy, without long-term current use of insulin ([facility]) Check glucose one to four times daily as needed 1 Each 0 08/09/2022 Active PARoxetine HCl 30 MG Oral Tablet (Paxil) take 1 tablet by mouth IN THE MORNING 30 Tablet 5 03/13/2023 Active Nicotine 21 MG/24HR Transdermal Patch 24 Hour (Nicoderm CQ) Place 1 Patch over 24 hours topically on the skin in the morning. On upper body/upper arm, change once a day for 6 weeks.. 42 Patch 3 04/11/2023 Active SITagliptin Phosphate 100 MG Oral Tablet (Januvia)Indications :Type 2 diabetes mellitus with diabetic mononeuropathy, without long-term current use of insulin ([facility]) Take 1 Tablet by mouth in the morning. 30 Tablet 5 04/27/2023 Active Pantoprazole Sodium 40 MG Oral Tablet Delayed Release (Protonix) Take 1 Tablet by mouth in the morning. 30 Tablet 5 04/27/2023 Active Atorvastatin Calcium 40 MG Oral Tablet (Lipitor) Take 1 Tablet by mouth every evening. 30 Tablet 04/27/2023 Active Aspirin 81 MG Oral Tablet Delayed Release (Aspirin Low Dose)Indications:His tory of embolic stroke Take 1 Tablet by mouth in the morning. 30 Tablet 11 04/27/2023 Active Metoclopramide HCl 10 MG Oral Tablet (Reglan) 1 Tablet. 0 06/07/2023 Active Ondansetron HCl 4 MG Oral Tablet Take 1 Tablet by mouth every 8 hours as needed for Nausea. 20 Tablet 2 06/10/2023 Active Losartan Potassium 50 MG Oral Tablet (Cozaar) Take 1 Tablet by mouth in the morning. 30 Tablet 5 06/17/2023 Active busPIRone HCl 5 MG Oral Tablet (Buspar)Indications: Anxiety state take 1 tablet by mouth IN THE MORNING and 1 tablet BEFORE BEDTIME 60 Tablet 3 07/05/2023 Active metFORMIN HCl 500 MG Oral Tablet (Glucophage) Take 2 Tablets by mouth 2 times a day with morning and evening meals. 360 Tablet 3 09/02/2023 Active Ketoconazole 2 % External CreamIndications:Tin ea corporis Apply topically to affected area 2 times a day. 60 g 0 09/12/2023 Active documented as of this encounter (statuses as of 09/14/2023) Active Problems Problem Noted Date Diagnosed Date [...] as of this encounter (statuses as of 09/14/2023) Immunizations Name Administration Dates Next Due COVID-19 mRNA, LNP-s, No Pre serve, 2-Dose Series (Moderna) 02/23/2021,01/19/2021 COVID-19, MRNA-LNP, 23-24, P F, 30 MCG/0.3 mL, 12 YRS AND ABOVE, IM ([employer]) 08/04/2023 COVID-19, mRNA, LNP-s, PF, B ooster, 100mcg/0.5mg ([employer]a) 05/10/2022,09/11/2021 Covid-19, Mrna, Lnp-s, Pf, B ivalent, 30 Mcg, IM, 12 yrs and above ([employer]) 07/19/2022 DTaP Dipth/Tet/Acell Pertussis (Infanrix), Peds 03/11/2005 Pneumococcal Conjugate Vaccine, 20-valent (Prevn ar20) 06/24/2023 Pneumococcal Polysaccharide PPV23 (Pneumovax) ,07/10/2010 SEASONAL INFLUENZA, PF, 6 M & Above, IM , (FLULAVAL or FLUZONE) 06/24/2023,08/09/2022 TDAP (age 10 and older)(Boostrix) 06/24/2023 [...] encounter Miscellaneous Notes * Telephone Encounter - Riri Espinoza CPhT - 09/12/2023 2:43 PM EST Patients pharmacy is closing and he would like to update his pharmacy to [facility] [address] Thank you, Riri Espinoza Research Clerk [facility] ([facility]) (Formerly Telepharmacy) 09/12/2023,2:45 PM documented in this encounter Plan of Treatment Upcoming Encounters Date Type Department Care Team (Late st Contact Info) Description 11/24/2023 8:30 AM EST Imaging Radiology [facility] [address] [place] [address] 12/09/2023 8:30 AM EST Office Visit Otolaryngology [facility] [address] [place] [address] Kendall Armstrong DO [address] [place] [address] 01/05/2024 9:20 AM EDT Office Visit Family Practice [facility] [address] [place] [address] Rob Chisholm MD [address] [place] [address] 01/12/2024 12:30 PM EDT Office Visit Dermatology, Flako Nguyen [address] [address] [place] [address] Carlene Lorenzo PA-C [address] [place] [address] 01/16/2024 9:00 AM EDT Office Visit Pharmacy, [facility] [address] [facility] [place] [address] [facility] [address] [facility] [place] [address] Health Maintenance Due Date Last Done Comments [...] Blood Test 03/28/2024 03/28/2023 GFR 06/15/2024 06/15/2023, 0804/2023, 03/29/2023, Additional history exists Lipid Panel 02/26/2028 [...] filedocumented as of this encounter Care Teams Mechanic Helper Relationship Specialty Start Date End Date Rob Chisholm MD [address] [facility] [place] [address] PCP - General Family Medicine 06/23/22 documented as of this encounter
--- OUTSIDE RECORDS SUMMARY | 2023-11-24 15:27 | External Medical Summary | Summary of Care ---
Author Name Unknown Organization [facility] Address [address] [place] [address] Phone [phone] Care Team Providers Care Fourth Hand Name Role Phone Rob Chisholm MD Primary Care Provider + Reason for Visit * Reason Onset Date Comments Advice 10/18/2023 Encounter Details Date Type Department Care Team (Late st Contact Info) Description 10/18/2023 Telephone Family Practice [facility] [address] [place] [address] Rob Chisholm MD [address] [place] [address] Advice Allergies No known active allergiesdocumented as of this encounter (statuses as of 10/21/2023) Medications Medication Sig Dispensed Refills Start Date [...] as of this encounter (statuses as of 10/21/2023) Active Problems Problem Noted Date Diagnosed Date [...] as of this encounter (statuses as of 10/21/2023) Immunizations Name Administration Dates Next Due COVID-19 mRNA, LNP-s, No Pre serve, 2-Dose Series (Moderna) 02/23/2021,01/19/2021 COVID-19, MRNA-LNP, 23-24, P F, 30 MCG/0.3 mL, 12 YRS AND ABOVE, IM ([facility] 08/04/2023 COVID-19, mRNA, LNP-s, PF, B [...] Telephone Encounter - Tessie Alvares LPN - 10/21/2023 10:31 AM EST Called patient. Left detailed message on identified voicemail for patient. * Telephone Encounter - Rob Chisholm MD - 10/18/2023 4:10 PM EST His labs have been great, sugar was just a little high the last time we checked. Has A1c ordered, can do new lab sooner to make sure sugar not spiking. Has appt w/me in December * Telephone Encounter - Pat Martines LPN - 10/18/2023 3:33 PM EST Aware of below. "Has just had DKA episode last summer, and has DM." Has "elevated WBC" S/w friend who had it ([place])diagnosis via spinal tap" "numbness in feet, but thinks that was neuropathy from DM" Pt also wonders about Lymes? Tested negative in March. Fungal rashes are from DM. Circular, almost like ringworm and treating as ringworm. Already addressed by Dr. Chisholm. Pt is going on about all things that have been discussed and some he has follow ups for. Now stating that he has fatigue, and "exhausted all the time". 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 Sounds like he just wants reassurance. 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 (There isn't a specific lab test for this). It's very rare. What is his question/ what is he experiencing? * Telephone Encounter - Pat Martines LPN - 10/18/2023 11:08 AM EST Is this something that can tested for before I call the pt? * Telephone Encounter - Royce Small or assistant - 10/18/2023 9:53 AM EST Pt would like to speak with someone regarding Guillain-Bloomburg Symptoms and testing. Pt stating his Sister had Dameon-Peters. Pt can be reached at [phone]. Thank you, Royce Small Hoop Maker Helper Machine I [facility] ([facility])(formerly Telepharmacy) 10/18/2023,9:57 AM documented in this encounter Plan of Treatment Upcoming Encounters Date Type Department Care Team (Late st Contact Info) Description 11/24/2023 8:30 AM EST Imaging Radiology [facility] [address] [place] [address] 12/09/2023 8:30 AM EST Office Visit Otolaryngology [facility] [address] [place] [address] Kendall Armstrong DO [address] [place] [address] 01/05/2024 9:20 AM EDT Office Visit Family Practice [facility] [address] [place] [address] Rob Chisholm MD [address] [place] [address] 01/12/2024 12:30 PM EDT Office Visit Dermatology, Flako Nguyen [address] [address] [place] [address] Carlene Lorenzo PA-C [address] [place] [address] 01/16/2024 9:00 AM EDT Office Visit Pharmacy, [facility] [address] [place] [address] [place], [facility] [address] [place] [address] Health Maintenance Due Date Last Done Comments [...] filedocumented as of this encounter Care Teams Fourth Hand Relationship Specialty Start Date End Date Rob Chisholm MD [address] [place] [address] PCP - General Family Medicine 06/23/22 documented as of this encounter
--- OUTSIDE RECORDS SUMMARY | 2023-11-24 15:27 | External Medical Summary | Summary of Care ---
Author Name Unknown Organization [facility] Address [address] [place] [address] Phone [phone] Care Team Providers Care Cemetery Warden Name Role Phone Rob Carmona MD Primary Care Provider + Reason for Visit * Reason Onset Date Comments Medication Refill 10/18/2023 Encounter Details Date Type Department Care Team (Late st Contact Info) Description 10/18/2023 Refill Family Practice [facility] [address] [place] [address] Rob Carmona MD [address] [place] [address] Allergies No known active allergiesdocumented as of this encounter (statuses as of 10/18/2023) Medications Medication Sig Dispensed Refills Start Date End Date Status OneTouch Ultra 2 w/Device KitIndications:Ty pe 2 diabetes mellitus with diabetic mononeuropathy, without long-term current use of insulin ([facility]) Check glucose one to four times daily as needed 1 Each 0 08/09/2022 Active OneTouch UltraSoft LancetsIndication s:Type 2 diabetes mellitus with diabetic mononeuropathy, without long-term current use of insulin ([facility]) Check glucose one to four times daily as needed 100 Each 11 08/09/2022 Active OneTouch Ultra Blue In Vitro Strip (Glucose Blood)Indications :Type 2 diabetes mellitus with diabetic mononeuropathy, without long-term current use of insulin ([facility]) Check glucose one to four times daily as needed 100 Strip 11 08/09/2022 Active OneTouch Delica Lancing DevIndications:Ty pe 2 diabetes mellitus with diabetic mononeuropathy, [...] 11 09/19/2023 Active Ketoconazole 2 % External CreamIndications: Tinea corporis Apply topically to affected area 2 [...] Active busPIRone HCl 5 MG Oral Tablet (Buspar)Indicatio ns:Anxiety state Take 1 Tablet by mouth in the morning and 1 Tablet before bedtime. 60 Tablet 3 09/26/2023 Active Losartan Potassium 50 MG Oral Tablet (Cozaar) Take 1 Tablet by mouth in the morning. 30 Tablet 5 09/26/2023 Active Aspirin 81 MG Oral Tablet Delayed Release (Aspirin Low Dose)Indications: History of embolic stroke Take 1 Tablet by mouth in the morning. 30 Tablet 11 09/26/2023 Active Atorvastatin Calcium 40 MG Oral Tablet (Lipitor) Take 1 Tablet by mouth every evening. 30 Tablet 11 09/26/2023 Active Pantoprazole Sodium 40 MG Oral Tablet Delayed Release (Protonix) Take 1 Tablet by mouth in the morning. 30 Tablet 5 09/26/2023 Active SITagliptin Phosphate 100 MG Oral Tablet (Januvia)Indicati ons:Type 2 diabetes mellitus with diabetic mononeuropathy, [...] 6 weeks.. 28 Patch 0 10/18/2023 Active Nicotine 21 MG/24HR Transdermal Patch 24 Hour (Nicoderm CQ) Place 1 Patch over 24 hours topically on the skin in the morning. On upper body/upper arm, change once a day for 6 weeks.. 42 Patch 3 04/11/2023 10/18/2023 Discontinue d(Refill) documented as of this encounter (statuses as of 10/18/2023) Active Problems Problem Noted Date Diagnosed Date [...] as of this encounter (statuses as of 10/18/2023) Immunizations Name Administration Dates Next Due COVID-19 mRNA, LNP-s, No Pre serve, 2-Dose Series (Moderna) 02/23/2021,01/19/2021 COVID-19, MRNA-LNP, 23-24, P F, 30 MCG/0.3 mL, 12 YRS AND ABOVE, IM (PFIZER-Comirnaty) 08/04/2023 COVID-19, mRNA, LNP-s, PF, B ooster, 100mcg/0.5mg (Moderna) 05/10/2022,09/11/2021 Covid-19, Mrna, Lnp-s, Pf, B ivalent, 30 Mcg, IM, 12 yrs and above ([facility]) 07/19/2022 DTaP Dipth/Tet/Acell Pertussis (Infanrix), Peds 03/11/2005 [...] Miscellaneous Notes * Telephone Encounter - Kelly De La Garza CPhT - 10/18/2023 10:20 AM EST Pt returning phone call and was warm transferred to Rob Huang for further assistance. Thank you, Kelly De La Garza CPht Lumber Straightener II [facility] ([facility]) (formerly Telepharmacy) 10/18/2023, 10:20 AM * Telephone Encounter - Tasneem Tinoe [facility] - 10/18/2023 10:12 AM ESTSigned Prescriptions: Disp Refills Nicotine 21 MG/24HR Transdermal Patch 24 H*28 Pat*0 Sig: Place 1Patch over 24 hours topically on the skin in the morning. On upper body/upper arm, change once a day for 6 weeks..Authorizing Provider: ROB CARMONA User: TASNEEM TINEO--------- * Telephone Encounter - Tasneem Tineo [facility] - 10/18/2023 10:11 AM EST Tried calling patient to assess willingness to step down to 14mg patch at this time. Unable to reach. LMOVM. If patient returns call to [facility] Please transfer to [facility]. 28 DS x 0 rfs sent for now given this was a HP request. Thank you, Tasneem Tineo, PharmD Clinical Pharmacist [facility] ([facility]) 10/18/23 10:12 AM [phone] * Telephone Encounter - Royce Small terrazzo laborer - 10/18/2023 9:49 AM EST Pt has been out for 3 days - substituting with OTC Zyn. Did you pend patient's preferred pharmacy and medication before forwarding?yes Pharmacy: [facility] [id number] Pending Prescriptions: Disp Refills Nicotine 21 MG/24HR Transdermal Patch 24 *42 Pat*3 Sig: Place 1 Patch over 24 hours topically on the skin in the morning. On upper body/upper arm, change once a day for 6 weeks.. Last Visit: 08/12/2023 (in office), Visit date not found (telemedicine) Next Visit: 01/05/2024 If no future appointments scheduled, and last appointment is greater than a year ago, please schedule patient for a follow-up appointment Last date the medication was ordered: 04/11/2023 Is this request for a controlled substance?No Urine Drug Screen:No results found for this or any previous visit. Patient Phone Numbers Labs: Lab Results Component Value Date/Time CREAT 0.9 06/15/2023 08:06 AM CREAT 0.70 03/29/2023 12:00 AM POTASSIUM 3.9 06/15/2023 08:06 AM POTASSIUM 3.7 03/29/2023 12:00 AM TSH 0.80 11/18/2022 11:53 AM LDLCALC 97 02/25/2023 07:53 AM ALT 25 06/09/2023 12:07 PM HGBA1C 8.3 (H) 06/15/2023 08:06 AM documented in this encounter Plan of Treatment Upcoming Encounters Date Type Department Care Team (Late st Contact Info) Description 11/24/2023 8:30 AM EST Imaging Radiology [facility] [address] [place] [address] 12/09/2023 8:30 AM EST Office Visit Otolaryngology [facility] [address] [place] [address] Kendall Armstrong DO [address] [place] [address] 01/05/2024 9:20 AM EDT Office Visit Family Practice [facility] [address] [place] [address] Rob Carmona MD [address] [place] [address] 01/12/2024 12:30 PM EDT Office Visit Dermatology, Flako Nguyen [address] [place] [address] Carlene Lorenzo PA-C [address] [place] [address] 01/16/2024 9:00 AM EDT Office Visit Pharmacy, [facility] [address] [place] [address] [facility] [place] [address] [place] [address] Health Maintenance Due Date Last Done Comments [...] filedocumented as of this encounter Care Teams Cemetery Warden Relationship Specialty Start Date End Date Rob Carmona MD [address] [place] [address] PCP - General Family Medicine 06/23/22 documented as of this encounter
--- OUTSIDE RECORDS SUMMARY | 2023-11-24 15:27 | External Medical Summary | Summary of Care ---
Author Name Unknown Organization [facility] Address [address] [place] [address] Phone [phone] Care Team Providers Care Radial Drill Press Operator For Plastic Name Role Phone Rob Carmona MD Primary Care Provider + Reason for Visit * Reason Comments NEW PATIENT Patient is here for ring worm. He's deals with it frequently he said because he is diabetic. He uses ketoconazole, was on the terbinafine. He said he changes his towels everyday and sheets. Patient needs refill for the ketoconazole or something different. Only issue is he is having issues filling the ketoconazole at [facility] * Evaluate & Treat - Unlimited Visits (Within 3 days (urgent)) - Authorized Specialty Diagnoses / Procedures Referred By Curtis alcantara Referred To Contact Dermatology Diagnoses Tinea corporis Deisi Garcia PA-C [address] [place] [address] Referral ID Status Reason Start Date Expiration Date Visits Requested Visits Authorized [id number] Authorized Specialty Services Required 3 [phone] Encounter Details Date Type Department Care Team (Late st Contact Info) Description 09/19/2023 8:00 AM EST Office Visit Dermatology [place] [facility] [address] [place] [address] Cb Bernstein MD [address] [place] [address] Rash and nonspecific skin eruption* Allergies No known active allergiesdocumented as of this encounter (statuses as of 09/19/2023) Medications Medication Sig Dispensed Refills Start Date End Date Status NewsiTuch Ultra 2 w/Device KitIndications:Type 2 diabetes mellitus with diabetic mononeuropathy, without long-term current use of insulin ([facility]) Check glucose one to four times daily as needed 1 Each 0 08/09/2022 Active PhoneAndPhoneToImpact Radius UltraSoft LancetsIndications:T ype 2 diabetes mellitus with diabetic mononeuropathy, without long-term current use of insulin ([facility]) Check glucose one to four times daily as needed 100 Each 11 08/09/2022 Active PhoneAndPhoneToImpact Radius Ultra Blue In Vitro Strip (Glucose Blood)Indications:Ty pe 2 diabetes mellitus with diabetic mononeuropathy, without long-term current use of insulin ([facility]) Check glucose one to four times daily as needed 100 Strip 11 08/09/2022 Active PhoneAndPhoneToImpact Radius Delica Lancing DevIndications:Type 2 diabetes mellitus with diabetic mononeuropathy, without long-term current use of insulin ([facility]) Check glucose one to four times daily as needed 1 Each 0 08/09/2022 Active PARoxetine HCl 30 MG Oral Tablet (Paxil) take 1 tablet by mouth IN THE MORNING 30 Tablet 03/13/2023 Active Nicotine 21 MG/24HR Transdermal Patch 24 Hour (Nicoderm CQ) Place 1 Patch over 24 hours topically on the skin in the morning. On upper body/upper arm, change once a day for 6 weeks.. 42 Patch 3 04/11/2023 Active SITagliptin Phosphate 100 MG Oral Tablet (Januvia)Indications :Type 2 diabetes mellitus with diabetic mononeuropathy, without long-term current use of insulin ([facility]) Take 1 Tablet by mouth in the morning. 30 Tablet 04/27/2023 Active Pantoprazole Sodium 40 MG Oral Tablet Delayed Release (Protonix) Take 1 Tablet by mouth in the morning. 30 Tablet 04/27/2023 Active Atorvastatin Calcium 40 MG Oral Tablet (Lipitor) Take 1 Tablet by mouth every evening. 30 Tablet 04/27/2023 Active Aspirin 81 MG Oral Tablet Delayed Release (Aspirin Low Dose)Indications:His tory of embolic stroke Take 1 Tablet by mouth in the morning. 30 Tablet 04/27/2023 Active Metoclopramide HCl 10 MG Oral [...] a day. 60 g 0 09/12/2023 Active Ketoconazole 2 % External Shampoo (Nizoral) Lather into scalp for 5 minutes. Rinse over body and then wash off. Do this 3-4 times per week 120 mL 11 09/19/2023 Active documented as of this encounter (statuses as of 09/19/2023) Active Problems Problem Noted Date Diagnosed Date [...] as of this encounter (statuses as of 09/19/2023) Immunizations Name Administration Dates Next Due COVID-19 mRNA, LNP-s, No Pre serve, 2-Dose Series (Moderna) 02/23/2021,01/19/2021 COVID-19, MRNA-LNP, 23-24, P F, 30 MCG/0.3 mL, 12 YRS AND ABOVE, IM [facility] 08/04/2023 COVID-19, mRNA, LNP-s, PF, B ooster, [...] on file documented as of this encounter Progress Notes * Cb Bernstein MD - 09/19/2023 8:08 AM EST SUBJECTIVE: Chief Complaint: Chief Complaint Patient presents with NEW PATIENT Patient is here for ring worm. He's deals with it frequently he said because he is diabetic. He uses ketoconazole, was on the terbinafine. He said he changes his towels everyday and sheets. Patient needs refill for the ketoconazole or something different. Only issue is he is having issues filling the ketoconazole at [facility] HPI: Román Garcia is a 58 year old male seen for rash. Been going off and on for many years. Most recently several months. Applying ketoconazole cream. Terbinafine for 2 weeks without improvement. Itchy. Diabetic DERMATOLOGIC HISTORY: Plantar warts, tells me treated with [place] bleomycin OBJECTIVE: GEN: Healthy, alert, no distress, appears oriented, pleasant, and cooperative SKIN: Problem focused exam reveals: Chest and left shoulder with a few very faint polycyclic/arcuate pink plaques. No scale ASSESSMENT/PLAN: Rash - Patient with no significant rash on exam today, very faint - from history unclear if ever had scale. 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 - however now patient telling me it did improve with antifungals - there's no scale today to even scrape for a JOSE A - offered biopsy but patient not bothered by it - now that patient says the antifungals did work I recommend starting a ketoconazole shampoo a few times per week as body wash - if recurs patient to return Cb Bernstein MD Ref: DEISI GARCIA[[id number]] [address] [place] [address] (office) [phone] (fax) PCP: ROB CARMONA [address] [place] [id number] documented in this encounter Nursing Notes * Jessica Boyer LPN - 09/19/2023 7:56 AM EST Patient identified by name and date of . Do you have any concerns about pain management for today's visit? No Living Will or Advance Directive for Health Care as noted on problem list. [facility] is a way you can talk to your provider online through e-mail. Would you like to sign up? I can activate it for you? NO Chief Complaint Patient presents with NEW PATIENT Patient is here for ring worm. He's deals with it frequently he said because he is diabetic. He uses ketoconazole, was on the terbinafine. He said he changes his towels everyday and sheets. Patient needs refill for the ketoconazole or something different. Only issue is he is having issues filling the ketoconazole at [facility] documented in this encounter Plan of Treatment Upcoming Encounters Date Type Department Care Team (Late st Contact Info) Description 11/24/2023 8:30 AM EST Imaging Radiology [facility] [address] [place] [address] 12/09/2023 8:30 AM EST Office Visit Otolaryngology [facility] [address] [place] [place] [address] Kendall Armstrong, [address] [place] [address] 01/05/2024 9:20 AM EDT Office Visit Family Practice [facility] [address] [place] [place] [address] Rob Carmona MD [address] [place] [address] 01/12/2024 12:30 PM EDT Office Visit Dermatology, Flako Nguyen [address] [place] [address] [place] [address] Carlene Lorenzo PA-C [address] [place] [address] [place] [address] 01/16/2024 9:00 AM EDT [facility] [address] [place] [address] [facility] [address] [place] [address] Health Maintenance Due Date Last Done Comments Hepatitis B (1 of 3 - 3-dose series) 1967 Depression Screening 1979 Cologuard 2012 Colonoscopy 2012 Sigmoidoscopy 2012 Diabetic Foot Exam 08/09/2023 08/09/2022 Diabetic Eye Exam 11/30/2023 11/30/2022 HbA1c 12/16/2023 06/15/2023, 02/2023, 11/18/2022, Additional history exists Albumin/Creatinine Ratio [...] as of this encounter Visit Diagnoses Diagnosis Rash and nonspecific skin eruption- Primary Rash and other nonspecific skin eruption documented in this encounter Care Teams Radial Drill Press Operator For Plastic Relationship Specialty Start Date End Date Rob Carmona MD [address] [place] [address] PCP - General Family Medicine 06/23/22 documented as of this encounter
--- OUTSIDE RECORDS SUMMARY | 2023-11-24 15:27 | External Medical Summary | Summary of Care ---
Author Name Unknown Organization [facility] Address [address] [place] [address] Phone [phone] Care Team Providers Care Manager Fashion Name Role Phone Rob Chisholm MD Primary Care Provider + Reason for Visit * Reason Onset Date Comments Medication Refill 09/26/2023 Encounter Details Date Type Department Care Team (Late st Contact Info) Description 09/26/2023 Refill Family Practice [facility] [address] [place] [address] Rob Chisholm MD [address] [place] [address] History of embolic stroke; Anxiety state Allergies No known active allergiesdocumented as of this encounter (statuses as of 09/27/2023) Medications Medication Sig Dispensed Refills Start Date End Date Status OneTouch Ultra 2 w/Device KitIndications:Type 2 diabetes mellitus with diabetic mononeuropathy, without long-term current use of insulin ([facility]) Check glucose one to four times daily as needed 1 Each 0 08/09/2022 Active OneTouch UltraSoft LancetsIndications:T ype 2 diabetes mellitus with diabetic mononeuropathy, without long-term current use of insulin ([facility]) Check glucose one to four times daily as needed 100 Each 11 08/09/2022 Active OneTouch Ultra Blue In Vitro Strip (Glucose Blood)Indications:Ty pe 2 diabetes mellitus with diabetic mononeuropathy, without long-term current use of insulin ([facility]) Check glucose one to four times daily as needed 100 Strip 11 08/09/2022 Active SudhaToyisel Patterson DevIndications:Type 2 diabetes mellitus with diabetic mononeuropathy, without long-term current use of insulin ([facility]) Check glucose one to four times daily as needed 1 Each 0 08/09/2022 Active Nicotine 21 MG/24HR Transdermal Patch 24 Hour (Nicoderm CQ) Place 1 Patch over 24 hours topically on the skin in the morning. On upper body/upper arm, change once a day for 6 weeks.. 42 Patch 3 04/11/2023 Active Metoclopramide HCl 10 MG Oral Tablet [...] as of this encounter (statuses as of 09/27/2023) Active Problems Problem Noted Date Diagnosed Date [...] as of this encounter (statuses as of 09/27/2023) Immunizations Name Administration Dates Next Due COVID-19 mRNA, LNP-s, No Pre serve, 2-Dose Series (Moderna) 02/23/2021,01/19/2021 COVID-19, MRNA-LNP, 23-24, P F, 30 MCG/0.3 mL, 12 YRS AND ABOVE, [facility] 08/04/2023 COVID-19, mRNA, LNP-s, PF, B [...] encounter Miscellaneous Notes * Telephone Encounter - César Mota, [facility] - 09/27/2023 3:06 PM EST Refused Prescriptions: Disp Refills Aspirin 81 MG Oral Tablet Delayed Release *30 Tab*6 Sig: Take 1 Tablet by mouth in the morning. Refused By: CÉSAR MOTA Reason for Refusal: Duplicate Request Atorvastatin Calcium 40 MG Oral Tablet (Li*30 Tab*6 Sig: Take 1 Tablet by mouth every evening. Refused By: CÉSAR MOTA Reason for Refusal: Duplicate Request busPIRone HCl 5 MG Oral Tablet (Buspar) 60 Tab*0 Sig: Take 1 Tablet by mouth in the morning and 1 Tablet before bedtime. Refused By: CÉSAR MOTA Reason for Refusal: Duplicate Request Losartan Potassium 50 MG Oral Tablet (Coza*30 Tab*1 Sig: Take 1 Tablet by mouth in the morning. Refused By: CÉSAR MOTA Reason for Refusal: Duplicate Request metFORMIN HCl 500 MG Oral Tablet (Glucopha*360 Ta*2 Sig: Take 2 Tablets by mouth 2 times a day with morning and evening meals. Refused By: CÉSAR MOTA Reason for Refusal: Duplicate Request Ondansetron HCl 4 MG Oral Tablet 20 Tab*0 Sig: Take 1 Tablet by mouth every 8 hours as needed for Nausea. Refused By: CÉSAR MOTA Reason for Refusal: Duplicate Request Pantopr azole Sodium 40 MG Oral Tablet Adamaris*30 Tab*2 Sig: Take 1 Tablet by mouth in the morning. Refused By: CÉSAR MOTA Reason for Refusal: Duplicate Request * Telephone Encounter - Lucia Ronquillo, [facility] - 09/26/2023 1:53 PM EST Please reroute Rx to [facility] Critical access hospital-[address] Pending Prescriptions: Disp Refills Aspirin 81 MG Oral Tablet Delayed Release*30 Tab*6 Sig: Take 1 Tablet by mouth in the morning. Atorvastatin Calcium 40 MG Oral Tablet (L*30 Tab*6 Sig: Take 1 Tablet by mouth every evening. busPIRone HCl 5 MG Oral Tablet (Buspar) 60 Tab*0 Sig: Take 1 Tablet by mouth in the morning and 1 Tablet before bedtime. Losartan Potassium 50 MG Oral Tablet (Coz*30 Tab*1 Sig: Take 1 Tablet by mouth in the morning. metFORMIN HCl 500 MG Oral Tablet (Glucoph*360 Ta*2 Sig: Take 2 Tablets by mouth 2 times a day with morning and evening meals. Ondansetron HCl 4 MG Oral Tablet 20 Tab*0 Sig: Take 1 Tablet by mouth every 8 hours as needed for Nausea. Pantoprazole Sodium 40 MG Oral Tablet Del*30 Tab*2 Sig: Take 1 Tablet by mouth in the morning. Last Visit: 08/12/2023 (in office), Visit date not found (telemedicine) 01/05/2024 If no future appointments scheduled, and last appointment is greater than a year ago, please schedule patient for a follow-up appointment Last date the medication was ordered: [id number] Patient Phone Numbers Labs: Lab Results Component [...] Description 11/24/2023 8:30 AM EST Imaging Radiology [facility] [address] [address] 12/09/2023 8:30 AM EST Office Visit Otolaryngology [facility] [address] [address] Kendall Armstrong DO [address] [address] 01/05/2024 9:20 AM EDT Office Visit Family Practice [facility] [address] [address] Rob Chisholm MD [address] [address] 01/12/2024 12:30 PM EDT Office Visit Dermatology, [facility] [address] [place] [address] Carlene Lorenzo PA-C [address] [place] [address] 01/16/2024 9:00 AM EDT Office Visit Pharmacy, [facility] [address] [facility] [place] [address] [facility] [address] [facility] [place] [address] Health Maintenance Due Date Last Done Comments [...] as of this encounter Visit Diagnoses Diagnosis History of embolic stroke Personal history of other disorders of nervous system and sense organs Anxiety state Anxiety state, unspecified documented in this encounter Care Teams Manager Fashion Relationship Specialty Start Date End Date Rob Chisholm MD [address] [place] [address] PCP - General Family Medicine 06/23/22 documented as of this encounter
--- OUTSIDE RECORDS SUMMARY | 2023-11-24 15:27 | External Medical Summary | Summary of Care ---
Author Name Unknown Organization [facility] Address [address] [place] [address] Phone [phone] Care Team Providers Care Mold Release Worker Name Role Phone Rob Chisholm MD Primary Care Provider + Reason for Visit * Reason Onset Date Comments Medication Refill 09/26/2023 Encounter Details Date Type Department Care Team (Late st Contact Info) Description 09/26/2023 Refill Family Practice [facility] [address] [place] [address] Rob Chisholm MD [address] [facility] [place] [address] Type 2 diabetes mellitus with diabetic mononeuropathy, without long-term current use of insulin (HCC) Allergies No known active allergiesdocumented as of this encounter (statuses as of 09/26/2023) Medications Medication Sig Dispensed Refills Start Date [...] as of this encounter (statuses as of 09/26/2023) Active Problems Problem Noted Date Diagnosed Date [...] as of this encounter (statuses as of 09/26/2023) Immunizations Name Administration Dates Next Due COVID-19 [...] encounter Miscellaneous Notes * Telephone Encounter - [facility] - 09/26/2023 3:03 PM ESTRefused Prescriptions: Disp Refills PARoxetine HCl 30 MG Oral Tablet (Paxil) 30 Tab*5 Sig: take 1 tablet by mouth IN THE MORNING Refused By: PATSY PALM Reason for Refusal: Duplicate Request SITagliptin Phosphate 100 MG Oral Tablet (*30 Tab*5 Sig: Take 1 Tablet by mouth in the morning. Refused By: PATSY PALM Reason for Refusal: Duplicate Request ---- * Telephone Encounter - Lucia Ronquillo CPhT - 09/26/2023 1:59 PM EST Patient needs ordered today Did you pend patient's preferred pharmacy and medication before forwarding?yes Pharmacy: [facility] [id number] Pending Prescriptions: Disp Refills PARoxetine HCl 30 MG Oral Tablet (Paxil) 30 Tab*5 Sig: take 1 tablet by mouth IN THE MORNING SITagliptin Phosphate 100 MG Oral Tablet *30 Tab*5 Sig: Take 1 Tablet by mouth in the morning. Last Visit: 08/12/2023 (in office), Visit date not found (telemedicine) Next Visit: 01/05/2024 If no future appointments scheduled, and last appointment is greater than a year ago, please schedule patient for a follow-up appointment Last date the medication was ordered: [id number] Is this request for a controlled substance?No [...] Description 11/24/2023 8:30 AM EST Imaging Radiology [facility] [address] [facility] [place] [id number] 12/09/2023 8:30 AM EST Office Visit Otolaryngology [facility] [address] [place] [address] Kendall Armstrong DO [address] [place] [address] 01/05/2024 9:20 AM EDT Office Visit Family Practice [facility] [address] [place] [address] Rob Chisholm MD [address] [place] [address] 01/12/2024 12:30 PM EDT Office Visit Dermatology, [place]ako [place] [address] [place] [address] Carlene Lorenzo PA-C [address] [place] [address] 01/16/2024 9:00 AM EDT Office Visit Pharmacy, [facility] [address] [place] [address] [facility] [address] [place] [address] Health Maintenance Due Date Last Done Comments [...] (HCC) documented in this encounter Care Teams Mold Release Worker Relationship Specialty Start Date End Date Rob Chisholm MD [address] [address] PCP - General Family Medicine 06/23/22 documented as of this encounter
--- OUTSIDE RECORDS SUMMARY | 2023-11-24 15:27 | External Medical Summary | Summary of Care ---
Author Name Unknown Organization [facility] Address [address] [place] [address] Phone [phone] Care Team Providers Care Activity Therapy Teacher Name Role Phone Rob Carmona MD Primary Care Provider + Reason for Visit * Reason Onset Date Comments Medication Refill 10/18/2023 Encounter Details Date Type Department Care Team (Late st Contact Info) Description 10/18/2023 Refill Family Practice [facility] [address] [place] [address] Rob Carmona MD [address] [place] [address] Allergies No known active allergiesdocumented as of [...] 30 Mcg, IM, 12 yrs and above ([employer]) 07/19/2022 DTaP Dipth/Tet/Acell Pertussis (Infanrix), Peds 03/11/2005 [...] encounter Miscellaneous Notes * Telephone Encounter - Rob Akers RP - 10/18/2023 10:21 AM EST Patient has not smoked since November of this year, but is supplementing patches with other nicotine sources and trying to cut down on them. For that reason he does not feel like he is ready to cut down to step 2 just yet. Advised another fill was sent in. Thank you, Rob Akers, PharmD Clinical Pharmacist [facility] ([facility] [employer]) [phone] 10/18/2023, 10:25 AM * Telephone Encounter - Kelly De La Garza CPhT - 10/18/2023 10:20 AM EST Pt returning phone call and was warm transferred to Rob Huang for further assistance. Thank you, Kelly De La Garza CPht [employer] [facility] 10/18/2023, 10:20 AM * Telephone Encounter - Tasneem Tineo [facility] - 10/18/2023 10:12 AM ESTSigned Prescriptions: Disp Refills Nicotine 21 MG/24HR Transdermal Patch 24 H*28 Pat*0 Sig: Place 1Patch over 24 hours topically on the skin in the morning. On upper body/upper arm, change once a day for 6 weeks..Authorizing Provider: ROB CARMONA User: TASNEEM TINEO--------- * Telephone Encounter - Tasneem Tineo [facility] - 10/18/2023 10:11 AM EST Tried calling patient to assess willingness to step down to 14mg patch at this time. Unable to reach. LMOVM. If patient returns call to [facility] Please transfer to [facility]. 28 DS x 0 rfs sent for now given this was a HP request. Thank you, Tasneem Tineo, OxanaD Clinical Pharmacist [facility] 10/18/23 10:12 AM [phone] * Telephone Encounter - Royce Small respite provider - 10/18/2023 9:49 AM EST Pt has been out for 3 days - substituting with OTC Zyn. Did you pend patient's preferred pharmacy and medication before forwarding?yes Pharmacy: [facility] [id number] Pending Prescriptions: Disp Refills Nicotine 21 [...] Description 11/24/2023 8:30 AM EST Imaging Radiology [facility] [address] [address] 12/09/2023 8:30 AM EST Office Visit Otolaryngology [facility] [address] [address] Kendall Armstrong DO [address] [place] [address] 01/05/2024 9:20 AM EDT Office Visit Family Practice [facility] [address] [address] Rob Carmona MD [address] [address] 01/12/2024 12:30 PM EDT Office Visit Dermatology, [facility] [address] [place] [address] Carlene Lorenzo PA-C [address] [place] [address] 01/16/2024 9:00 AM EDT Office Visit Pharmacy, [facility] [address] [facility] [place] [address] [facility] [address] [place] [address] Health Maintenance Due Date Last Done Comments [...] filedocumented as of this encounter Care Teams Activity Therapy Teacher Relationship Specialty Start Date End Date Rob Carmona MD [address] [place] [address] PCP - General Family Medicine 06/23/22 documented as of this encounter
--- OUTSIDE RECORDS SUMMARY | 2023-11-24 15:27 | External Medical Summary | Summary of Care ---
Author Name Unknown Organization [facility] Address [address] [place] [address] Phone [phone] Care Team Providers Care Steam Shovel Engineer Name Role Phone Rob Chisholm MD Primary Care Provider + Reason for Referral * Evaluate & Treat - Unlimited Visits (Within 3 days (urgent)) - Authorized Specialty Diagnoses / Procedures Referred By Curtis alcantara Referred To Contact Dermatology Diagnoses Tinea corporis Sarah Oliver PA-C [address] [address] Referral ID Status Reason Start Date Expiration Date Visits Requested Visits Authorized [id number] Authorized Specialty Services Required 3 [phone] Question Answer Referral Priority Within 3 days (urgent) Where should this appointment be scheduled? [facility] Are you referring the patient for Mohs Surgery and have a current positive skin cancer biopsy result? No What is the reason for the patient referral? Rash/Skin Check/Eval of Lesion or Mole Reason for Visit * Reason Comments Rash Encounter Details Date Type Department Care Team ([facility] Contact Info) Description 09/12/2023 5:00 PM EST Convenient Care Visit [facility] [address] [place] [address] Sarah Oliver PA-C [address] [id number] Tinea corporis* Allergies No known active allergiesdocumented as of this encounter (statuses as of 09/12/2023) Medications Medication Sig Dispensed Refills Start Date End Date Status PenBladeTouch Ultra 2 w/Device KitIndications:Ty pe 2 diabetes mellitus with diabetic mononeuropathy, without long-term current use of insulin ([facility]) Check glucose one to four times daily as needed 1 Each 0 08/09/2022 Active PenBladeTouch UltraSoft LancetsIndication s:Type 2 diabetes mellitus with diabetic mononeuropathy, without long-term current use of insulin ([facility]) Check glucose one to four times daily as needed 100 Each 11 08/09/2022 Active PenBladeTouch Ultra Blue In Vitro Strip (Glucose Blood)Indications :Type 2 diabetes mellitus with diabetic mononeuropathy, without long-term current use of insulin ([facility]) Check glucose one to four times daily as needed 100 Strip 11 08/09/2022 Active PenBladeTouch Delica Lancing DevIndications:Ty pe 2 diabetes mellitus with diabetic mononeuropathy, without long-term current use of insulin ([facility]) Check glucose one to four [...] mononeuropathy, without long-term current use of insulin ([facility]) Take 1 Tablet by mouth [...] 5 MG Oral Tablet (Buspar)Indicatio ns:Anxiety state take 1 tablet by mouth IN THE MORNING and 1 tablet BEFORE BEDTIME 60 Tablet 3 07/05/2023 Active metFORMIN HCl 500 MG Oral Tablet (Glucophage) Take 2 Tablets by mouth 2 times a day with morning and evening meals. 360 Tablet 3 09/02/2023 Active Ketoconazole 2 % External CreamIndications: Tinea corporis Apply topically to affected area 2 times a day. 60 g 0 09/12/2023 Active Ketoconazole 2 % External Cream APPLY TO AFFECTED AREA 2 TIMES A DAY. APPLY TO RASH ON CHEST 60 g 5 02/10/2023 09/12/2023 Discontinue d(Refill) documented as of this encounter (statuses as of 09/12/2023) Active Problems Problem Noted Date Diagnosed Date [...] as of this encounter (statuses as of 09/12/2023) Immunizations Name Administration Dates Next Due COVID-19 [...] Sign Reading Time Taken Comments Blood Pressure 116/60 09/12/2023 5:20 PM EST Pulse 88 09/12/2023 5:20 PM EST Temperature - - Respiratory Rate 14 09/12/2023 5:20 PM EST Oxygen Saturation 96% 09/12/2023 5:20 PM EST Inhaled Oxygen Concentration - - Weight 69.4 kg (153 lb) 09/12/2023 5:20 PM EST Height - - Body Mass Index 23.26 06/24/2023 10:32 AM EDT documented in this encounter Patient Instructions * Patient Instructions* Sarah Oliver PA-C - 09/12/2023 5:39 PM EST Avoid hot showers as this may exacerbate rash. You may use oral benadryl or cetirizine for symptom relief- do not exceed package dosage instructions. Follow up with PCP within 3-5 day(s) if no improvement. Go to the ED if any new or severe symptoms appear. documented in this encounter Progress Notes * Sarah Oliver PA-C - 09/12/2023 5:28 PM EST SUBJECTIVE: Román Garcia is a 58 year old male who is here to be evaluated for rash x years. Symptoms include Type of rash is itchy Rash location trunk and left shoulder Exposure to none Rash condition is intermittent Any recent exposure to No known exposures Patient denies other symptoms Patient notes that he has ringworm for months "whenever I stop the medicine it returns". He has treated with clotrimazole, oral terbinafine, ketoconazole and he notes that terbinafine and clotrimazole doesn't touch it. Fevers have been absent. Constitutional: no chills, sweats, or fatigue ROS All others negative other than those noted in HPI Past Medical History: Diagnosis Date DM type 2, goal HbA1c < 8% (HCC) External hemorrhoid Plantar wart severe Warthin's tumor 02/21/2023 02/16/23 FNA. Past Surgical History: Procedure Laterality Date IR BIOPSY 02/15/2023 OR TONSILLECTOMY & ADENOIDECTOMY LESS THAN AGE 14 1971 Social History Socioeconomic History Marital status: Single [...] Types: Marijuana Sexual activity: Not Currently Comment: '02. 3 adult kids. no grandkids Other Topics Concern Not on file Social History Narrative Not on file Social Determinants of Health Financial Resource Strain: Not on file Food Insecurity: Not on file Transportation Needs: Not on file Physical Activity: Not on file Stress: Not on file Social Connections: Not on file Intimate Partner Violence: Not on file Housing Stability: Not on file Family History Problem Relation Age of Onset Uterine cancer Mother Kidney cancer Father 11/14. Hypertension Sister Lung cancer Grandfather (Maternal) Current Outpatient Medications Medication Sig Dispense Refill OneTouch Ultra 2 w/Device Kit Check glucose one to four times daily as needed 1 Each 0 OneTouch UltraSoft Lancets Check glucose one to four times daily as needed 100 Each 11 OneTouch Delica Lancing Dev Check glucose one to four times daily as needed 1 Each 0 PARoxetine HCl 30 MG Oral Tablet (Paxil) take 1 tablet by mouth IN THE MORNING 30 Tablet 5 Nicotine 21 MG/24HR Transdermal Patch 24 Hour (Nicoderm CQ) Place 1 Patch over 24 hours topically on the skin in the morning. On upper body/upper arm, change once a day for 6 weeks.. 42 Patch 3 SITagliptin Phosphate 100 MG Oral Tablet (Januvia) Take 1 Tablet by mouth in the morning. 30 Tablet5 Pantoprazole Sodium 40 MG Oral Tablet Delayed Release (Protonix) Take 1 Tablet by mouth in the morning. 30 Tablet 5 Atorvastatin Calcium 40 MG Oral Tablet (Lipitor) Take 1 Tablet by mouth every evening. 30 Tablet 11 Aspirin 81 MG Oral Tablet Delayed Release (Aspirin Low Dose) Take 1 Tablet by mouth in the morning.30 Tablet 11 Metoclopramide HCl 10 MG Oral Tablet (Reglan) 1 Tablet. Ondansetron HCl 4 MG Oral Tablet Take 1 Tablet by mouth every 8 hours as needed for Nausea. 20 Tablet 2 Losartan Potassium 50 MG Oral Tablet (Cozaar) Take 1 Tablet by mouth in the morning. 30 Tablet 5 busPIRone HCl 5 MG Oral Tablet (Buspar) take 1 tablet by mouth IN THE MORNING and 1 tablet BEFORE BEDTIME 60 Tablet 3 metFORMIN HCl 500 MG Oral Tablet (Glucophage) Take 2 Tablets by mouth 2 times a day with morning and evening meals. 360 Tablet 3 Ketoconazole 2 % External Cream Apply topically to affected area 2 times a day. 60 g 0 OneTouch Ultra Blue In Vitro Strip (Glucose Blood) Check glucose one to four times daily as needed 100 Strip 11 COVID-19 mRNA Vaccine 12 years and above Pfizer 30 MCG/0.3 ML IM SUSP Inject into a large muscle addirected (Patient not taking: Reported on 08/12/2023) 0.3 mL 0 No current facility-administered medications for this visit. Review of patient's allergies indicates: No Known Allergies OBJECTIVE: BP 116/60 | Pulse 88 | Resp 14 | Wt 69.4 kg (153 lb) | SpO2 96% | BMI 23.26 kg/m | BSA 1.82 m General: awake, alert, no apparent distress Eyes: no proptosis, no periorbital inflammation or soft tissue edema, no orbital cellulitis Lungs: clear to auscultation, no rhonchi, no wheezes, and no crackles Heart: regular rate, regular rhythm, no murmurs , no rubs, and no gallops Skin: ring like pattern of erythematous macular patches that coalesce on left shoulder and right breast/abdomen with central clearing and without scale. ASSESSMENT: Tinea corporis (Primary) - DERMATOLOGY REFERRAL OP - Ketoconazole 2 % External Cream; Apply topically to affected area 2 times a day. Due to history, suspect that patient may not have tinea, or a resistant form. To see dermatology for improved guidance. Patient notes that he would like to take oral therapy "if it won't kill my liver" Care instructions given. Additional instructions per patient instructions attached. Follow up with PCP in 3 days if symptoms persist. Reasons to go to ED discussed with patient including but not limited to development of acute or severe symptoms. Patient agrees with the plan and demonstrates verbal understanding. Patient stable at the time of discharge. Sarah Oliver PA-C documented in this encounter Nursing Notes * Amelia Brewster LPN - 09/12/2023 5:18 PM EST Pt Román Garcia a 58 year old year old male complains of past dx of ringworm First treated years ago. States perpetual, when ever he stops meds, it returns. L shoulder, and torso PMH DMII Pt is in room with alone documented in this encounter Plan of Treatment Upcoming Encounters Date Type Department Care Team (Late st Contact Info) Description 11/24/2023 8:30 AM EST Imaging Radiology [facility] [address] [facility] [place] [address] 12/09/2023 8:30 AM EST Office Visit Otolaryngology [facility] [address] [place] [address] Kendall Armstrong DO [address] [place] [address] 01/05/2024 9:20 AM EDT Office Visit Family Practice [facility] [address] [place] [address] Rob Chisholm MD [address] [place] [address] 01/12/2024 12:30 PM EDT Office Visit Dermatology, Flako Nguyen [address] [place] [address] [address] Carlene Lorenzo PA-C [address] [place] [address] [place] [address] 01/16/2024 9:00 AM EDT Office Visit Pharmacy, [facility] [address] [place] [address] [facility] [address] [place] [address] Scheduled Referrals Name Type Priority Associated Diagnoses Orde r Schedule DERMATOLOGY REFERRAL OP Referral Within 3 days (urgent) Tinea corporis Ordered: 09/12/2023 Health Maintenance Due Date Last Done Comments [...] as of this encounter Visit Diagnoses Diagnosis Tinea corporis- Primary Dermatophytosis of the body documented in this encounter Care Teams Steam Shovel Engineer Relationship Specialty Start Date End Date Rob Chisholm MD [address] [address] PCP - General Family Medicine 06/23/22 documented as of this encounter
--- OUTSIDE RECORDS SUMMARY | 2023-11-24 15:27 | External Medical Summary | Summary of Care ---
Author Name Unknown Organization [facility] Address [address] [place] [address] Phone [phone] Care Team Providers Care Structural Metal Worker Name Role Phone Rob Chisholm MD Primary Care Provider + Reason for Visit * Reason Onset Date Comments Med Request 09/26/2023 Encounter Details Date Type Department Care Team (Late st Contact Info) Description 09/26/2023 Telephone Family Practice [facility] [address] [place] [address] Rob Chisholm MD [address] [place] [address] Med Request Allergies No known active allergiesdocumented as of [...] THE MORNING 30 Tablet 11 09/26/2023 Active PARoxetine HCl 30 MG Oral Tablet (Paxil) take 1 tablet by mouth IN THE MORNING 30 Tablet 03/13/2023 09/26/2023 Discontinue d(Refill) SITagliptin Phosphate 100 MG Oral Tablet (Januvia)Indicati ons:Type 2 diabetes mellitus with diabetic mononeuropathy, without long-term current use of insulin (HCC) Take 1 Tablet by mouth in the morning. 30 Tablet 5 04/27/2023 09/26/2023 Discontinue d(Refill) Pantoprazole Sodium 40 MG Oral Tablet Delayed Release (Protonix) Take 1 Tablet by mouth in the morning. 30 Tablet 04/27/2023 09/26/2023 Discontinue d(Refill) Atorvastatin Calcium 40 MG Oral Tablet (Lipitor) Take 1 Tablet by mouth every evening. 30 Tablet 04/27/2023 09/26/2023 Discontinue d(Refill) Aspirin 81 MG Oral Tablet Delayed Release (Aspirin Low Dose)Indications: History of embolic stroke Take 1 Tablet by mouth in the morning. 30 Tablet 04/27/2023 09/26/2023 Discontinue d(Refill) Losartan Potassium 50 MG Oral Tablet (Cozaar) Take 1 Tablet by mouth in the morning. 30 Tablet 5 06/17/2023 09/26/2023 Discontinue d(Refill) busPIRone HCl 5 MG Oral Tablet (Buspar)Indicatio ns:Anxiety state take 1 tablet by mouth IN THE MORNING and 1 tablet BEFORE BEDTIME 60 Tablet 3 07/05/2023 09/26/2023 Discontinue d(Refill) metFORMIN HCl 500 MG Oral Tablet (Glucophage) Take 2 Tablets by mouth 2 times a day with morning and evening meals. 360 Tablet 3 09/02/2023 09/26/2023 Discontinue d(Refill) Ketoconazole 2 % External CreamIndications: Tinea corporis Apply topically to affected area 2 times a day. 60 g 0 09/12/2023 09/26/2023 Discontinue d(Refill) documented as of this encounter [...] MCG/0.3 mL, 12 YRS AND ABOVE, IM ([employer]) 08/04/2023 COVID-19, mRNA, LNP-s, PF, B ooster, 100mcg/0.5mg (Moderna) 05/10/2022,09/11/2021 Covid-19, Mrna, Lnp-s, Pf, B ivalent, 30 Mcg, IM, 12 yrs and above ([employer]) 07/19/2022 DTaP Dipth/Tet/Acell Pertussis (Infanrix), Peds 03/11/2005 [...] encounter Miscellaneous Notes * Telephone Encounter - Toya Gonzalez LPN - 09/27/2023 9:05 AM EST Called pt. Informed of message. He verbalized understanding. * Telephone Encounter - Rob Chisholm MD - 09/26/2023 2:25 PM EST Rx sent. Notify pt. * Telephone Encounter - Juliana Koenig LPN - 09/26/2023 2:14 PM EST Patient switching pharmacies. Needs all his prescriptions sent to [facility]. * Telephone Encounter - Julinaa Koenig LPN - 09/26/2023 2:13 PM EST Pending Prescriptions: Disp Refills Ketoconazole 2 % External Cream 90 g 5 Sig: Apply topically to affected area 2 times a day. 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 Well adult exam Z00.00 BPH with obstruction/lower urinary tract symptoms N40.1, N13.8 Essential (primary) hypertension I10 Labs: Lab Results Component Value Date/Time CREATININE - [facility] 0.9 06/15/2023 08:06 AM CREATININE, RANDOM URINE - [facility] 43 02/25/2023 07:53 AM CREATININE-OUTSIDE LAB 0.70 03/29/2023 12:00 AM Lab Results Component Value Date/Time POTASSIUM - [facility] 3.9 06/15/2023 08:06 AM POTASSIUM-OUTSIDE LAB 3.7 03/29/2023 12:00 AM Lab Results Component Value Date/Time TSH - [facility] 0.80 11/18/2022 11:53 AM Lab Results Component Value Date/Time LDL CHOLESTEROL (CALCULATED) - [facility] 97 02/25/2023 07:53 AM LDL CHOLESTEROL (CALCULATED) - [facility] 120 06/25/2022 08:03 AM Lab Results Component Value Date/Time ALT - [facility] 25 06/09/2023 12:07 PM Hemoglobin AIC Results: Lab Results Component Value Date/Time HEMOGLOBIN A1C - [facility] 8.3 (H) 06/15/2023 08:06 AM HEMOGLOBIN A1C - [facility] 7.9 (H) 02/25/2023 07:53 AM HEMOGLOBIN A1C - [facility] 6.7 (H) 11/18/2022 11:53 AM * Telephone Encounter - Lucia Ronquillo CPhT - 09/26/2023 2:00 PM EST Patient calling requesting Ketoconazole 2 % External Cream . Upon chart review, medication was lastprescribed by Urgent Care. Please advise if you wish to continue this therapy for the patient. Thank you, Lucia Ronquillo Vehicle Delivery Worker II [facility] ([facility] (formerly Telepharmacy) 09/26/2023 2:01 PM documented in this encounter Plan of Treatment Upcoming Encounters Date Type Department Care Team (Late st Contact Info) Description 11/24/2023 8:30 AM EST Imaging Radiology [facility] [address] [place] [address] 12/09/2023 8:30 AM EST Office Visit Otolaryngology [facility] [address] [address] Kendall Armstrong, [address] [address] 01/05/2024 9:20 AM EDT Office Visit Family Practice [facility] [address] [address] Rob Chisholm MD [address] [place] [address] 01/12/2024 12:30 PM EDT Office Visit Dermatology, Flako Nguyen [address] [address] Carlene Lorenzo PA-C [address] [address] 01/16/2024 9:00 AM EDT Office Visit Pharmacy, [facility] [address] [address] [facility] [address] [address] Health Maintenance Due Date Last Done Comments [...] of this encounter Visit Diagnoses Diagnosis Tinea corporis Dermatophytosis of the body Anxiety state Anxiety state, unspecified History of embolic stroke Personal history of other disorders of nervous system and sense organs Type 2 diabetes mellitus with diabetic mononeuropathy, without long-term current use of insulin (HCC) documented in this encounter Care Teams Structural Metal Worker Relationship Specialty Start Date End Date Rob Chisholm MD [address] [address] PCP - General Family Medicine 06/23/22 documented as of this encounter
--- OUTSIDE RECORDS SUMMARY | 2023-11-24 15:27 | External Medical Summary | Summary of Care ---
Author Name Unknown Organization [facility] Address [address] [place] [address] Phone [phone] Care Team Providers Care Receiving Associate Store Name Role Phone Alphonso Carmona MD Primary Care Provider + Reason for Visit * Reason Comments eRx-Medication Refill Encounter Details Date Type Department Care Team (Late st Contact Info) Description 09/02/2023 Refill Family Practice [facility] [address] [facility] [place] [address] Alphonso Carmona MD [address] [facility] [address] Allergies No known active allergiesdocumented as of this encounter (statuses as of 09/02/2023) Medications Medication Sig Dispensed Refills Start Date End Date Status AureliantTouch Ultra 2 w/Device KitIndications:T ype 2 diabetes [...] as needed 1 Each 0 08/09/2022 Active Ketoconazole 2 % External Cream APPLY TO AFFECTED AREA 2 TIMES A DAY. APPLY TO RASH ON CHEST 60 g 5 02/10/2023 Active PARoxetine HCl 30 MG Oral Tablet (Paxil) take 1 tablet by mouth IN THE MORNING 30 Tablet 03/13/2023 Active Nicotine 21 MG/24HR Transdermal Patch 24 Hour (Nicoderm CQ) Place 1 Patch over 24 hours topically on the skin in the morning. On upper body/upper arm, change once a day for 6 weeks.. 42 Patch 3 04/11/2023 Active Additional Information Patient not taking.Reported on 08/12/2023 SITagliptin Phosphate 100 MG Oral Tablet (Januvia)Indicat [...] 5 MG Oral Tablet (Buspar)Indicati ons:Anxiety state take 1 tablet by mouth IN THE MORNING and 1 tablet BEFORE BEDTIME 60 Tablet 3 07/05/2023 Active metFORMIN HCl 500 MG Oral Tablet (Glucophage) Take 2 Tablets by mouth 2 times a day with morning and evening meals. 360 Tablet 3 09/02/2023 Active metFORMIN HCl 500 MG Oral Tablet (Glucophage) Take 2 Tablets by mouth 2 times a day with morning and evening meals. 360 Tablet 1 03/08/2023 3 Discontinued documented as of this encounter (statuses as of 09/02/2023) Active Problems Problem Noted Date Diagnosed Date [...] as of this encounter (statuses as of 09/02/2023) Immunizations Name Administration Dates Next Due COVID-19 mRNA, LNP-s, No Pre serve, 2-Dose Series (Moderna) 02/23/2021,01/19/2021 COVID-19, MRNA-LNP, 23-24, P F, 30 MCG/0.3 mL, 12 YRS AND ABOVE, IM ([employer]) 08/04/2023 COVID-19, mRNA, LNP-s, PF, B ooster, [...] encounter Miscellaneous Notes * Telephone Encounter - Garcia Adam RPh - 09/02/2023 5:50 PM EST Signed Prescriptions: Disp Refills metFORMIN HCl 500 MG Oral Tablet (Glucopha*360 Ta*3 Sig: Take 2 Tablets by mouth 2 times a day with morning and evening meals.Authorizing Provider: ALPHONSO CARMONA User: GARCIA ADAM documented in this encounter Plan of Treatment Upcoming Encounters Date Type Department Care Team (Late st Contact Info) Description 11/24/2023 8:30 AM EST Imaging Radiology [facility] [address] [address] 12/09/2023 8:30 AM EST Office Visit Otolaryngology [facility] [address] [place] [address] Kendall Armstrong DO [address] [address] 01/05/2024 9:20 AM EDT Office Visit Family Practice [facility] [address] [place] [address] Alphonso Carmona MD [address] [place] [address] 01/12/2024 12:30 PM EDT Office Visit Dermatology, [facility] [address] [place] [address] Carlene Lorenzo PA-C [address] [place] [address] 01/16/2024 9:00 AM EDT Office Visit Pharmacy, [facility] [address] [place] [address] [facility] [address] [place] [address] Health Maintenance Due Date Last Done Comments [...] filedocumented as of this encounter Care Teams Receiving Associate Store Relationship Specialty Start Date End Date Alphonso Carmona MD [address] [place] [address] PCP - General Family Medicine 06/23/22 documented as of this encounter
--- OUTSIDE RECORDS SUMMARY | 2023-11-24 15:27 | External Medical Summary | Summary of Care ---
Author Name Unknown Organization [facility] Address [address] [place] [address] Phone [phone] Care Team Providers Care Optical Glass Sawyer Name Role Phone Rob Chisholm MD Primary Care Provider + Reason for Visit * Reason Onset Date Comments Advice 10/18/2023 Encounter Details Date Type Department Care Team (Late st Contact Info) Description 10/18/2023 Telephone Family Practice [facility] [address] [place] [address] Rob Chisholm MD [address] [facility] [place] [address] Advice Allergies No known active allergiesdocumented as of this encounter (statuses as of 10/21/2023) Medications Medication Sig Dispensed Refills Start Date End Date Status OneTouch Ultra 2 w/Device KitIndications:Type 2 diabetes mellitus with diabetic mononeuropathy, without long-term current use of insulin ([facility]) Check glucose one to four times daily as needed 1 Each 0 08/09/2022 Active OneTouch UltraSoft LancetsIndications:T ype 2 diabetes mellitus with diabetic mononeuropathy, without long-term current use of insulin ([facility]) Check glucose one to four times daily as needed 100 Each 11 08/09/2022 Active OneTouch Ultra Blue In Vitro Strip (Glucose Blood)Indications:Ty pe 2 diabetes mellitus with diabetic mononeuropathy, without long-term current use of insulin ([facility]) Check glucose one to four times daily as needed 100 Strip 11 08/09/2022 Active OneTouch Delica Lancing DevIndications:Type 2 diabetes mellitus with diabetic mononeuropathy, without long-term current use of insulin ([facility]) Check glucose one to four times [...] MCG/0.3 mL, 12 YRS AND ABOVE, [facility] 08/04/2023 COVID-19, mRNA, LNP-s, PF, B ooster, [...] Miscellaneous Notes * Telephone Encounter - Rob Chisholm MD [...] MD - 10/18/2023 1:01 PM EST Guillian Arlington is a progressive bilateral weakness, starting in legs, ascending upwards. (There isn't a specific lab test for this). It's very rare. What is his question/ what is he experiencing? * Telephone Encounter - Pat Martines LPN - 10/18/2023 11:08 AM EST Is this something that can tested for before I call the pt? * Telephone Encounter - Royce Small radial drill press operator - 10/18/2023 9:53 AM EST Pt would like to speak with someone regarding Guillain-Arlington Symptoms and testing. Pt stating his Sister had Dameon-Peters. Pt can be reached at [phone]. Thank you, Royce Small Hand Filer Balance Wheel I [facility] ([facility])(formerly Telepharm[facility]) 10/18/2023,9:57 AM documented in this encounter Plan of Treatment Upcoming Encounters Date Type Department Care Team (Late st Contact Info) Description 11/24/2023 8:30 AM EST Imaging Radiology [facility] [address] [place] [address] 12/09/2023 8:30 AM EST Office Visit Otolaryngology [facility] [address] [place] [address] Kendall Armstrong, [address] [place] [address] 01/05/2024 9:20 AM EDT Office Visit Family Practice [facility] [address] [place] [address] Rob Chisholm MD [address] [place] [address] 01/12/2024 12:30 PM EDT Office Visit Dermatology, Flako Nguyen [address] [place] [address] [place] [address] Carlene Lorenzo PA-C [address] [place] [address] [place] [address] 01/16/2024 9:00 AM EDT Office Visit Pharmacy, [facility] [address] [place] [address] [facility] [address] [place] [address] Health Maintenance Due Date Last Done Comments [...] filedocumented as of this encounter Care Teams Optical Glass Sawyer Relationship Specialty Start Date End Date Rob Chisholm MD [address] [place] [address] PCP - General Family Medicine 06/23/22 documented as of this encounter
--- OUTSIDE RECORDS SUMMARY | 2023-11-24 15:27 | External Medical Summary | Summary of Care ---
Author Name Unknown Organization [facility] Address [address] [place] [address] Phone [phone] Care Team Providers Care Bordereau Clerk Name Role Phone Rob Chisholm MD Primary Care Provider + Encounter Details Date Type Department Care Team (Late st Contact Info) Description 09/13/2023 Population Health External Data Unspecified Department Allergies No known active allergiesdocumented as of this encounter (statuses as of 09/13/2023) Medications Medication Sig Dispensed Refills Start Date End Date Status OneTouch Ultra 2 w/Device KitIndications:Type 2 diabetes mellitus with diabetic mononeuropathy, without long-term current use of insulin ([facility]) Check glucose one to four times daily as needed 1 Each 0 08/09/2022 Active OneTouch UltraSoft LancetsIndications:T ype 2 diabetes mellitus with diabetic mononeuropathy, without long-term current use of insulin ([facility]) Check glucose one to four times daily as needed 100 Each 11 08/09/2022 Active OneTouch Ultra Blue In Vitro Strip (Glucose Blood)Indications:Ty pe 2 diabetes mellitus with diabetic mononeuropathy, without long-term current use of insulin ([facility]) Check glucose one to four times daily as needed 100 Strip 11 08/09/2022 Active OneTouch Delica Lancing DevIndications:Type 2 diabetes mellitus with diabetic mononeuropathy, without long-term current use of insulin ([facility]) Check glucose one to four times daily [...] by mouth every evening. 30 Tablet 11 04/27/2023 Active Aspirin 81 MG Oral Tablet [...] as of this encounter (statuses as of 09/13/2023) Active Problems Problem Noted Date Diagnosed Date [...] as of this encounter (statuses as of 09/13/2023) Immunizations Name Administration Dates Next Due COVID-19 mRNA, LNP-s, No Pre serve, 2-Dose Series (Moderna) 02/23/2021,01/19/2021 COVID-19, MRNA-LNP, 23-24, P F, 30 MCG/0.3 mL, 12 YRS AND ABOVE, IM ([employer]) 08/04/2023 COVID-19, mRNA, LNP-s, PF, B ooster, [...] EST Imaging Radiology [facility] [address] [place] [address] 12/09/2023 8:30 AM EST Office Visit Otolaryngology [facility] [address] [place] [address] Kendall Armstrong, [address] [place] [address] 01/05/2024 9:20 AM EDT Office Visit Family Practice [facility] [address] [place] [address] Rob Chisholm MD [address] [place] [address] 01/12/2024 12:30 PM EDT Office Visit Dermatology, Flako Nguyen [address] [place] [address] [place] [address] Carlene Lorenzo PA-C [address] [place] [address] [place] [address] 01/16/2024 9:00 AM EDT Office Visit Pharmacy, [facility] [address] [place] [address] [facility] [address] [place] [address] Health Maintenance Due Date Last Done Comments [...] filedocumented as of this encounter Care Teams Bordereau Clerk Relationship Specialty Start Date End Date Rob Chisholm MD [address] [place] [address] PCP - General Family Medicine 06/23/22 documented as of this encounter
--- OUTSIDE RECORDS SUMMARY | 2023-11-24 15:27 | External Medical Summary | Summary of Care ---
Author Name Unknown Organization [facility] Address [address] [place] [address] Phone [phone] Care Team Providers Care Equipment Specialist Name Role Phone Rob Carmona MD Primary Care Provider + Reason for Visit * Reason Onset Date Comments Medication Refill 10/18/2023 Encounter Details Date Type Department Care Team (Late st Contact Info) Description 10/18/2023 Refill Family Practice [facility] [address] [place] [address] Rob Carmona MD [address] [place] [address] Allergies No known active allergiesdocumented as of [...] 30 Mcg, IM, 12 yrs and above ([employer]) 07/19/2022 DTaP Dipth/Tet/Acell Pertussis (Infanrix), Peds 03/11/2005 [...] Pharmacist [facility] ([facility]) ([facility]ly [employer]) [phone] 10/18/2023, 10:25 AM * Telephone Encounter - Kelly De La Garza CPhT - 10/18/2023 10:20 AM EST Pt returning phone call and was warm transferred to Rob Huang for further assistance. Thank you, Kelly De La Garza CPht County Adviser II [facility] ([facility]) (formerly Telepharmacy) 10/18/2023, 10:20 AM * Telephone Encounter - Tasneem Tineo [facility] - 10/18/2023 10:12 AM ESTSigned Prescriptions: Disp Refills Nicotine 21 MG/24HR Transdermal Patch 24 H*28 Pat*0 Sig: Place 1Patch over 24 hours topically on the skin in the morning. On upper body/upper arm, change once a day for 6 weeks..Authorizing Provider: ROB CARMONA User: TASNEEM TINEO--------- * Telephone Encounter - Tasneem Tineo [facility] - 10/18/2023 10:11 AM EST Tried calling patient to assess willingness to step down to 14mg patch at this time. Unable to reach. LMOVM. If patient returns call to [facility] Please transfer to [facility]. 28 DS x 0 rfs sent for now given this was a HP request. Thank you, Tasneem Tineo, OxanaD Clinical Pharmacist [facility] ([facility]) 10/18/23 10:12 AM [phone] * Telephone Encounter - Royce Small solutions sales consultant - 10/18/2023 9:49 AM EST Pt has been out for 3 days - substituting with OTC Zyn. Did you pend patient's preferred pharmacy and medication before forwarding?yes Pharmacy: [facility] [address] Pending Prescriptions: Disp Refills Nicotine 21 [...] Description 11/24/2023 8:30 AM EST Imaging Radiology [facility] [address] [place] [address] 12/09/2023 8:30 AM EST Office Visit Otolaryngology [facility] [address] [place] [address] Kendall Armstrong DO [address] [place] [address] 01/05/2024 9:20 AM EDT Office Visit Family Practice [facility] [address] [place] [address] Rob Carmona MD [address] [place] [address] 01/12/2024 12:30 PM EDT Office Visit Dermatology, Joanna BustillosFlako [address] [place] [address] [place] [address] Carlene Lorenzo PA-C [address] [place] [address] [place] [address] 01/16/2024 9:00 AM EDT Office Visit Pharmacy, [facility] [address] [facility] [place] [address] [facility] [address] [place] [address] Health Maintenance Due Date Last Done Comments [...] filedocumented as of this encounter Care Teams Equipment Specialist Relationship Specialty Start Date End Date Rob Carmona MD [address] [place] [address] PCP - General Family Medicine 06/23/22 documented as of this encounter
--- OUTSIDE RECORDS SUMMARY | 2023-11-24 15:28 | External Medical Summary | Summary of Care ---
Author Name Unknown Organization [facility] Address [address] [place] [address] Phone [phone] Care Team Providers Care Music Promoter Name Role Phone Rob Chisholm MD Primary Care Provider + Reason for Visit * Reason Onset Date Comments Health Maintenance 08/17/2023 Encounter Details Date Type Department Care Team (Late st Contact Info) Description 08/17/2023 Telephone Family Practice [facility] [address] [place] [address] Rob Chisholm MD [address] [place] [address] Health Maintenance Allergies No known active allergiesdocumented as of this encounter (statuses as of 08/17/2023) Medications Medication Sig Dispensed Refills Start Date End Date Status OneTouch Ultra 2 w/Device KitIndications:Typ e 2 diabetes mellitus with diabetic mononeuropathy, without long-term current use of insulin ([facility]) Check glucose one to four times daily as needed 1 Each 0 08/09/2022 Active OneTouch UltraSoft LancetsIndications :Type 2 diabetes mellitus with diabetic mononeuropathy, without long-term current use of insulin ([facility]) Check glucose one to four times daily as needed 100 Each 11 08/09/2022 Active OneTouch Ultra Blue In Vitro Strip (Glucose Blood)Indications: Type 2 diabetes mellitus with diabetic mononeuropathy, without long-term current use of insulin ([facility]) Check glucose one to four times daily as needed 100 Strip 11 08/09/2022 Active OneTouch Delica Lancing DevIndications:Typ e 2 diabetes mellitus with diabetic mononeuropathy, without long-term current use of insulin ([facility]) Check glucose one to four times daily as needed 1 Each 0 08/09/2022 Active Ketoconazole 2 % External Cream APPLY TO AFFECTED AREA 2 TIMES A DAY. APPLY TO RASH ON CHEST 60 g 5 02/10/2023 Active metFORMIN HCl 500 MG Oral Tablet (Glucophage) Take 2 Tablets by mouth 2 times a day with morning and evening meals. 360 Tablet 1 03/08/2023 Active PARoxetine HCl 30 MG Oral Tablet [...] 08/12/2023 SITagliptin Phosphate 100 MG Oral Tablet (Januvia)Indicatio ns:Type 2 diabetes mellitus with diabetic mononeuropathy, without long-term current use of insulin ([facility]) Take 1 Tablet by mouth [...] 5 MG Oral Tablet (Buspar)Indication s:Anxiety state take 1 tablet by mouth IN THE MORNING and 1 tablet BEFORE BEDTIME 60 Tablet 3 07/05/2023 Active Terbinafine HCl 250 MG Oral Tablet (Lamisil)Indicatio ns:Tinea corporis Take 1 Tablet by mouth in the morning for 14 days. For tinea corporis. 14 Tablet 0 08/12/2023 08/26/2023 Active documented as of this encounter (statuses as of 08/17/2023) Active Problems Problem Noted Date Diagnosed Date [...] as of this encounter (statuses as of 08/17/2023) Immunizations Name Administration Dates Next Due COVID-19 mRNA, LNP-s, No Pre serve, 2-Dose Series (Moderna) 02/23/2021,01/19/2021 COVID-19, MRNA-LNP, 23-24, P F, 30 MCG/0.3 mL, 12 YRS AND ABOVE, IM ([facility]) 08/04/2023 COVID-19, mRNA, LNP-s, PF, B [...] encounter Miscellaneous Notes * Telephone Encounter - Yumiko Rangel LPN - 08/17/2023 10:57 AM EDT Care Gaps Comprehensive Care Outreach Last Office/Telemedicine Visit: 08/12/2023 (in office), Visit date not found (telemedicine) Next Office Visit: 01/05/2024 Hemoglobin AIC Results: Lab Results Component Value Date/Time HEMOGLOBIN A1C - [facility] 8.3 (H) 06/15/2023 08:06 AM HEMOGLOBIN A1C - [facility] 7.9 (H) 02/25/2023 07:53 AM HEMOGLOBIN A1C - [facility] 6.7 (H) 11/18/2022 11:53 AM Reviewed Health Maintenance below: Health Maintenance Topic Date Due Hepatitis B (1 of 3 - 3-dose series) Never done Depression Screening Never done Diabetic Foot Exam 08/09/2023 DIABETES-EYE EXAM 11/30/2023 HbA1c 12/16/2023 Albumin/Creatinine Ratio 02/26/2024 Colorectal Cancer Screening 03/28/2024 Care Gap Outreach Action Taken: Outreach not indicated documented in this encounter Plan of Treatment Upcoming Encounters Date Type Department Care Team (Late st Contact Info) Description 11/24/2023 8:30 AM EST Imaging Radiology [facility] [address] [facility] [place] [address] 12/09/2023 8:30 AM EST Office Visit Otolaryngology [facility] [address] [place] [address] Kendall Armstrong DO [address] [place] [address] 01/05/2024 9:20 AM EDT Office Visit Family Practice [facility] [address] [place] [address] Rob Chisholm MD [address] [place] [address] 01/16/2024 9:00 AM EDT Office Visit Pharmacy, [facility] [address] [place] [address] [address] [facility] [address] [place] [address] Health Maintenance Due Date Last Done Comments Hepatitis B (1 of 3 - 3-dose series) 1967 Depression Screening 1979 Cologuard 2012 Colonoscopy 2012 Sigmoidoscopy 2012 Diabetic Foot Exam 08/09/2023 08/09/2022 DIABETES-EYE EXAM 11/30/2023 11/30/2022 HbA1c 12/16/2023 06/15/2023, 05/0 02/2023, [...] filedocumented as of this encounter Care Teams Music Promoter Relationship Specialty Start Date End Date Rob Chisholm MD [address] [facility] [place] [address] PCP - General Family Medicine 06/23/22 documented as of this encounter
--- OUTSIDE RECORDS SUMMARY | 2023-11-24 15:28 | External Medical Summary | Summary of Care ---
Author Name Unknown Organization [facility] Address [address] [facility] [place] [address] Phone [phone] Care Team Providers Care Aviation Project Engineer Name Role Phone Rob Chisholm MD Primary Care Provider + Reason for Visit * Reason Comments eRx-Medication Refill Encounter Details Date Type Department Care Team Description 07/04/2023 Refill Family Practice [facility] [address] [facility] [place] [address] [facility]olm MD [address] [facility] [place] [address] Diabetes mellitus with nephropathy (HCC) Allergies No known active allergiesdocumented as of this encounter (statuses as of 07/05/2023) Medications Medication Sig Dispensed Refills Start Date [...] Tablet (Reglan) 1 Tablet. 0 06/07/2023 Active busPIRone HCl 5 MG Oral Tablet (Buspar)Indicatio ns:Anxiety state Take 1 Tablet by mouth in the morning and 1 Tablet before bedtime. 60 Tablet 0 06/09/2023 Active Ondansetron HCl 4 MG Oral Tablet Take 1 Tablet by mouth every 8 hours as needed for Nausea. 20 Tablet 2 06/10/2023 Active Losartan Potassium 50 MG Oral Tablet (Cozaar) Take 1 Tablet by mouth in the morning. 30 Tablet 5 06/17/2023 Active Losartan Potassium 25 MG Oral Tablet (Cozaar)Indicatio ns:Diabetes mellitus with nephropathy (HCC) Take 1 Tablet by mouth in the morning. 30 Tablet 5 01/14/2023 07/05/2023 Discontinue d(Medicatio n/Dose Changed) documented as of this encounter (statuses as of 07/05/2023) Active Problems Problem Noted Date Well adult exam 07/03/2023 Overview: 04/15 Zio- + SVT eps. Brief. 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 To ENT. Bipolar disorder 06/23/2022 Type 2 diabetes mellitus wit h diabetic mononeuropathy, without long-term current use of insulin 06/23/2022 Personal history of alcoholism documented as of this encounter (statuses as of 07/05/2023) Immunizations Name Administration Dates Next Due COVID-19 mRNA, LNP-s, No Pre serve, 2-Dose Series (Moderna) 02/23/2021,01/19/2021 COVID-19, mRNA, LNP-s, PF, B ooster, 100mcg/0.5mg (Moderna) 05/10/2022,09/11/2021 Covid-19, Mrna, Lnp-s, Pf, B ivalent, 30 Mcg, IM, 12 yrs and above ([employer]) 07/19/2022 DTaP Dipth/Tet/Acell Pertussis (Infanrix), Peds 03/11/2005 Pneumococcal Conjugate Vaccine, 20-valent (Prevn ar20) 06/24/2023 Pneumococcal Polysaccharide PPV23 (Pneumovax) ,07/10/2010 Seasonal Influenza, PF, 6 mo ns & Above, IM , (Flulaval) 06/24/2023,08/09/2022 TDAP (age 10 and older)(Boostrix) 06/24/2023 Zoster Vaccine Recombinant (Shingrix) 08/21/2022 ,05/10/2022 documented as of this encounter Social History Tobacco Use Types Packs/Day Years Used Date Smoking Tobacco: Former Cigarettes 0.5 S tarted: 1983 Pipe Smokeless Tobacco: Never Comments:nicotine gum, pouch esQuit Nov 2022 Alcohol Use Standard Drinks/Week Comments Not Currently 0 (1 standard drink = 0.6 oz pure alcohol) quit years ago. hx alcoholism. Sex Assigned at Date Recorded Not on file Job Start Date Occupation Industry Not on file Not on file Not on file documented as of this encounter Miscellaneous Notes * Telephone Encounter - Tracey Palm [facility] - 07/05/2023 11:25 AM EDTRefused Prescriptions: Disp Refills Losartan Potassium 25 MG Oral Tablet (Coza*30 Tab*5 Sig: take 1 tablet by mouth every morningRefused By: JENIFFER PALMeason for Refusal: Course of treatmentcompleteReason for Refusal Comment: pt on 50mg * Telephone Encounter - Tracey Palm [facility] - 07/05/2023 11:22 AM EDT Per 06/17 TE: increase losartan to 50 mg daily Refill denied, pt has 50 mg active in medlist Discontinued 25 tabs from med list. Thanks, Tracey Palm, PharmD Clinical Pharmacist Centralized Clinical Pharmacy Services ([facility]) (formerly Telepharmacy) [phone] 07/05/2023 11:25 AM documented in this encounter Plan of Treatment Upcoming Encounters Date Type Specialty Care Team Description 07/18/2023 Office Visit Pharmacy [facility] [address] [place] [address] 07/22/2023 Cardiac Studies Cardiac Studies 11/24/2023 Imaging Radiology 12/09/2023 Office Visit Otolaryngology Kendall Armstrong DO [address] [place] [address] 01/05/2024 Office Visit Family Medicine [facility], Rob Garcia MD [address] [place] [address] Health Maintenance Due Date Last Done Comments Hepatitis B (1 of 3 - 3-dose series) 1967 Depression Screening 1979 Cologuard 2012 Colonoscopy 2012 Sigmoidoscopy 2012 Diabetic Foot Exam 08/09/2023 08/09/2022 DIABETES-EYE EXAM 11/30/2023 11/30/2022 HbA1c 12/16/2023 06/15/2023, 02/2023, 11/18/2022, Additional history exists Albumin/Creatinine Ratio 02/26/2024 023, 12/30/2022, 11/19/2022, Additional history exists Colorectal Cancer Screening 03/28/2024 Fecal Occult Blood Test 03/28/2024 03/28/2023 GFR 06/15/2024 06/15/2023, 05/24, 03/29/2023, Additional history exists Lipid Panel 02/26/2028 02/25/2023, 06/25/2022 DTaP,Tdap,and Td Vaccines (3 - Td or Tdap) 06/24/2033 06/24/2023, 03/11/2005 Hepatitis C Screening Completed 06/25/2022 , 06/25/2022, 06/25/2022 COVID-19 Vaccine Completed 07/19/2022, , 09/11/2021, Additional history exists Zoster Vaccines Completed 08/21/2022, 05/10/2022 Influenza Vaccine (FLU shot) Completed 06/24/2023, 08/09/2022 Pneumococcal Vaccine: Pediatrics (0 to 5 Years) and At-Risk Patients (6 to 64 Years) Completed 06/24/2023, 05/10/2022, 07/10/2010 GARDASIL-HPV IMMUNIZATION SERIES Aged Out No longer eligible based on patient's age to complete this topic MENINGOCOCCAL (MENACTRA/MENVEO) Aged Out No longer eligible based on patient's age to complete this topic documented as of this encounter Medical Devices Not on filedocumented as of this encounter Visit Diagnoses Diagnosis Diabetes mellitus with nephropathy (HCC) Type II or unspecified type diabetes mellitus with renal manifestations, not stated as uncontrolled documented in this encounter Care Teams Aviation Project Engineer Relationship Specialty Start Date End Date Rob Chisholm MD [address] [place] [address] PCP - General Family Medicine 06/23/22 documented as of this encounter
--- OUTSIDE RECORDS SUMMARY | 2023-11-24 15:28 | External Medical Summary | Summary of Care ---
Author Name Unknown Organization [facility] Address [address] [facility] [place] [address] Phone [phone] Care Team Providers Care Finishing Operator Name Role Phone Alphonso Carmona MD Primary Care Provider + Reason for Visit * Reason Comments eRx-Medication Refill Encounter Details Date Type Department Care Team Description 07/04/2023 Refill Family Practice [facility] [address] [facility] [place] [address] Alphonso Carmona MD [address] [facility] [place] [address] Anxiety state Allergies No known active allergiesdocumented as of this encounter (statuses as of 07/05/2023) Medications Medication Sig Dispensed Refills Start Date End Date Status AldagenTouch Ultra 2 w/Device KitIndications:Ty pe 2 diabetes mellitus with diabetic mononeuropathy, without long-term current use of insulin ([facility]) Check glucose one to four times daily as needed 1 Each 0 08/09/2022 Active OneTouch UltraSoft LancetsIndication s:Type 2 diabetes mellitus with diabetic mononeuropathy, without long-term current use of insulin ([facility]) Check glucose one to four times daily as needed 100 Each 11 08/09/2022 Active OneTouch Ultra Blue In Vitro Strip (Glucose Blood)Indications :Type 2 diabetes mellitus with diabetic mononeuropathy, without long-term current use of insulin ([facility]) Check glucose one to four [...] BEFORE BEDTIME 60 Tablet 3 07/05/2023 Active busPIRone HCl 5 MG Oral Tablet (Buspar)Indicatio ns:Anxiety state Take 1 Tablet by mouth in the morning and 1 Tablet before bedtime. 60 Tablet 0 06/09/2023 3 Discontinued documented as of this encounter (statuses as of 07/05/2023) Active Problems Problem Noted Date Well adult exam 07/03/2023 Overview: 04/15 Zio- + SVT eps. Brief. 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 To ENT. Bipolar disorder 06/23/2022 Type 2 diabetes mellitus wit h diabetic mononeuropathy, without long-term current use of insulin 06/23/2022 Personal history of alcoholism 2 documented as of this encounter (statuses as [...] encounter Miscellaneous Notes * Telephone Encounter - Alphonso Carmona MD - 07/05/2023 9:46 PM EDTSigned Prescriptions: Disp Refills busPIRone HCl 5 MG Oral Tablet (Buspar) 60 Tab*3 Sig: take 1 tablet by mouth IN THE MORNING and 1 tablet BEFORE BEDTIME Authorizing Provider: ALPHONSO CARMONA * Telephone Encounter - Tracey Palm RP - 07/05/2023 11:26 AM EDTPending Prescriptions: Disp Refills busPIRone HCl 5 MG Oral Tablet (Buspar) 60 Tab*0 Sig: take 1 tablet by mouth IN THE MORNING and 1 tablet BEFORE BEDTIME * Telephone Encounter - Tracey Palm RP - 07/05/2023 11:26 AM EDT [facility] is currently not authorized to approve refills for the pended medication(s) per refill protocol. Please approve if appropriate. Thanks, Tracey Palm, PharmD Clinical Pharmacist Centralized Clinical Pharmacy Services ([facility]) (formerly [facility]) [phone] 07/05/2023 11:26 AM * Telephone Encounter - Tracey Palm RPh - 07/05/2023 11:25 AM EDT Pending Prescriptions: Disp Refills busPIRone HCl 5 MG Oral Tablet (Buspar) [*60 Tab*0 Sig: take 1 tablet by mouth IN THE MORNING and 1 tablet BEFORE BEDTIME Last Visit: 06/09/2023 (in office), Visit date not found (telemedicine) Next Visit: Visit date not found If no future appointments scheduled, and last appointment is greater than a year ago, please schedule patient for a follow-up appointment Last date the medication was ordered: 06/09 Pharmacy: [facility] #[id number] Is this request for a controlled substance? No Urine Drug Screen:No results found for this [...] [facility] [address] [place] [address] 07/22/2023 Cardiac Studies Cardiac Studies 11/24/2023 Imaging Radiology 12/09/2023 Office Visit Otolaryngology Kendall Armstrong DO [address] [place] [address] 01/05/2024 [facility] [address] [place] [address] Health Maintenance Due Date Last Done Comments Hepatitis B (1 of 3 - 3-dose series) 1967 Depression Screening 1979 Cologuard 2012 Colonoscopy 2012 Sigmoidoscopy 2012 Diabetic Foot Exam 08/09/2023 08/09/2022 DIABETES-EYE EXAM 11/30/2023 11/30/2022 HbA1c 12/16/2023 06/15/2023, 050 02/2023, [...] as of this encounter Visit Diagnoses Diagnosis Anxiety state Anxiety state, unspecified documented in this encounter Care Teams Finishing Operator Relationship Specialty Start Date End Date Alphonso Carmona MD [address] [place] [address] PCP - General Family Medicine 06/23/22 documented as of this encounter
--- OUTSIDE RECORDS SUMMARY | 2023-11-24 15:28 | External Medical Summary | Summary of Care ---
Author Name Unknown Organization [facility] Address [address] [place] [address] Phone [phone] Care Team Providers Care Cafe Assistant Name Role Phone Rob Chisholm MD Primary Care Provider + Reason for Visit * Reason Comments Dosage Adjustment In Person (Anticoag Cl inic) Diabetes Follow-Up Encounter Details Date Type Department Care Team Description 07/18/2023 Office Visit Pharmacy, [facility] [address] [place] [address] [facility] [address] [address] Type 2 diabetes mellitus with diabetic mononeuropathy, without long-term current use of insulin ([facility])* Allergies No known active allergiesdocumented as of this encounter (statuses as of 07/18/2023) Medications Medication Sig Dispensed Refills Start Date End Date Status Foresight BiotherapeuticsTouch Ultra 2 w/Device KitIndications:Type 2 diabetes mellitus [...] mononeuropathy, without long-term current use of insulin ([facility]) Check glucose one to four [...] BEFORE BEDTIME 60 Tablet 3 07/05/2023 Active documented as of this encounter (statuses as of 07/18/2023) Active Problems Problem Noted Date Well adult exam 07/03/2023 Overview: 04/15 Zio- + SVT eps. Brief. 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 To ENT. Bipolar disorder 06/23/2022 Type 2 diabetes mellitus wit h diabetic mononeuropathy, without long-term current use of insulin 06/23/2022 Personal history of alcoholism documented as of this encounter (statuses as of 07/18/2023) Immunizations Name Administration Dates Next Due COVID-19 [...] as of this encounter Progress Notes * Jeannie Clayton, [facility] - 07/18/2023 8:58 AM EDT Medication Therapy [facility] - Diabetes Management Progress Note Román Garcia, identified by name and date of , is a 58 year old male being seen for diabetes management/education. Patient presents for return diabetic visit. DIABETES: Current diabetic medications: Metformin 500 mg 2 tabs BID Sitagliptin 100 mg daily Medication Injection Site: N/A Lifestyle: Diet: unchanged Glucose Review/SMBG: Readings per patient memory/recall: Patient is currently testing 0 times a day Hypoglycemia: Does your blood sugar go below 70 mg/dL? No Hyperglycemia symptoms present: none Recent Labs Units 06/15/23 0806 02/25/23 0753 11/18/22 1153 HEMOGLOBIN A1C - [facility] % 8.3* 7.9* 6.7* Recent Labs Units 06/15/23 0806 06/09/23 1207 03/29/23 0000 ESTIMATED GLOMERULAR FILTRATION RATE - [facility] mL/min >90 >90 -- EGFR-OUTSIDE LAB ML/MIN/1.73M2 -- -- 106.2 CREATININE - [facility] mg/dL 0.9 0.9 -- CREATININE-OUTSIDE LAB MG/DL -- -- 0.70 HYPERTENSION: Patient on ACEi/ARB: yes BP Readings from Last 3 Encounters: 06/24/23 118/80 06/09/23 148/84 05/13/23 114/68 Blood pressure at goal: yes HYPERLIPIDEMIA: Patient is taking moderate or high intensity statin: yes HEALTH MAINTENANCE REVIEW: Health Maintenance Due Topic Date Due Hepatitis B (1 of 3 - 3-dose series) Never done Depression Screening Never done Diabetic Foot Exam 08/09/2023 ASSESSMENT & PLAN: BG Readings - Blood sugars controlled. A1c did marginally increase. Medications - Reviewed current regimen, patient is adherent to regimen. Patient would prefer to notchange anything at this time, will work on incorporating exercise and diet prior to next A1c check. Diet, Exercise, Lifestyle - No significant lifestyle changes since last visit. Discussed with patient, will start working out and continue on tract to eat better. Patient is agreeable to SMBG 0 time(s) daily. Patient aware to contact clinic if any hypoglycemia before next visit. MEDICATION CHANGES: no change Diabetic Medications: Metformin 500 mg 2 tabs BID Sitagliptin 100 mg daily HEALTH MAINTENANCE INTERVENTIONS: Labs: Ordered & Scheduled: HgA1c Immunizations: Up to Date Foot Exam: Up to Date Eye Exam: Up to Date Annual Wellness Visit: N/A FOLLOW UP: Return to clinic in 6 months 01/16/2024 eJannie Clayton RP Clinical Pharmacist - Music Video Producer Medication Therapy Management [facility] 07/18/2023, 8:58 AM documented in this encounter Plan of Treatment Upcoming Encounters Date Type Specialty Care Team Description 07/22/2023 Cardiac Studies Cardiac Studies 11/24/2023 Imaging Radiology 12/09/2023 Office Visit Otolaryngology Kendall Armstrong DO [address] [place] [address] 01/05/2024 Office Visit Family Medicine Rob Chisholm MD [address] [place] [address] 01/16/2024 Office Visit Pharmacy [facility] [place] [address] [place] [address] Scheduled Orders Name Type Priority Associated Diagnoses Orde r Schedule HEMOGLOBIN A1C Lab Routine Type 2 diabetes mellitus with diabetic mononeuropathy, without long-term current use of insulin (HCC) Expected: 10/17/2023 (Approximate), Expires: 07/18/2024 Health Maintenance Due Date Last Done Comments [...] long-term current use of insulin (HCC)- Primary documented in this encounter Care Teams Cafe Assistant Relationship Specialty Start Date End Date Rob Chisholm MD [address] [place] [address] PCP - General Family Medicine 06/23/22 documented as of this encounter
--- OUTSIDE RECORDS SUMMARY | 2023-11-24 15:28 | External Medical Summary | Summary of Care ---
Author Name Unknown Organization [facility] Address [address] [facility] [place] [address] Phone [phone] Care Team Providers Care Pre Billing Clinician Name Role Phone Rob Chisholm MD Primary Care Provider + Reason for Visit * Reason Onset Date Comments Test Results 06/17/2023 Encounter Details Date Type Department Care Team Description 06/17/2023 Telephone General Internal Medicine [facility] [address] [place] [address] Rita Berry MD [address] [place] [address] Test Results Allergies No known active allergiesdocumented as of this encounter (statuses as of 06/17/2023) Medications Medication Sig Dispensed Refills Start Date [...] as needed 1 Each 0 08/09/2022 Active Losartan Potassium 25 MG Oral Tablet (Cozaar)Indications: Diabetes mellitus with nephropathy (HCC) Take 1 Tablet by mouth in the morning. 30 Tablet 5 01/14/2023 Active Ketoconazole 2 % External Cream APPLY [...] the morning. 30 Tablet 5 06/17/2023 Active documented as of this encounter (statuses as of 06/17/2023) Active Problems Problem Noted Date Warthin's tumor 02/21/2023 Overview: 02/16/23 FNA. To ENT. Bipolar disorder 06/23/2022 Type 2 diabetes mellitus wit h diabetic mononeuropathy, without long-term current use of insulin 06/23/2022 Personal history of alcoholism 2 documented as of this encounter (statuses as of 06/17/2023) Immunizations Name Administration Dates Next Due COVID-19 mRNA, LNP-s, No Pre serve, 2-Dose Series (Moderna) 02/23/2021,01/19/2021 Covid-19 Mrna, Lnp-s, No Preserve, Booster (Mode rna) 05/10/2022,09/11/2021 Covid-19, Mrna, Lnp-s, Pf, B ivalent, 30 Mcg, IM, 12 yrs and above (Pfizer) 07/19/2022 DTaP - Dipth/Tet/Acell Pertussis 03/11/2005 Pneumococcal Polysaccharide PPV23 (Pneumovax) ,07/10/2010 Seasonal Influenza, PF, 6 mo ns & Above, IM , (Flulaval) 08/09/2022 Zoster Vaccine Recombinant (Shingrix) 08/21/2022 ,05/10/2022 documented [...] encounter Miscellaneous Notes * Telephone Encounter - Radha Mims MD - 06/17/2023 11:32 AM EDT Signed * Telephone Encounter - Jatin Mccarthy LPN - 06/17/2023 8:51 AM EDT Provider to address: Rita Berry MD Reason for Call: Test Results Contact: Telephone Call Contact Type: Test Results Outcome: Pt is agreeable to limiting his fluids to 8 cups per day. The pt stated that the trace blood and protein in his urine is an ongoing issue and his PCP is aware. 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 Losartan 50mg pended. Pt will take two tablets of his 25mg dose daily until it is signed. Total Time including non face to face (minutes): 5 * Telephone Encounter - Jatin Mccarthy LPN - 06/17/2023 8:50 AM EDT ----- Message from Rita Berry MD sent at 06/16/2023 3:09 PM EDT ----- CMP with the sugar 204, sodium 133 normal anion gap. Limit fluids to 8 cups per day. Normal PTH, vitamin-D 26, normal phosphorus, magnesium Urinalysis-trace blood, 3-5 RBC per high-power field, positive protein--increase losartan to 50 mg daily CBC with continued elevation of WBC count,-monitor for any fever or chills, keep scheduled appointment with PCP. documented in this encounter Plan of Treatment Upcoming Encounters Date Type Specialty Care Team Description 06/24/2023 Office Visit Family Medicine Juan Blanc CRNP [address] [place] [address] 07/18/2023 Office Visit Pharmacy [facility] [place] [address] [place] [address] 07/22/2023 Cardiac Studies Cardiac Studies 11/24/2023 Imaging Radiology 12/09/2023 Office Visit Otolaryngology Kendall Armstrong, DO [address] [place] [address] Health Maintenance Due Date Last Done Comments Hepatitis B (1 of 3 - 3-dose series) 1967 Depression Screening, Annual for Pts 12 and Over 1979 Cologuard 2012 Colonoscopy 2012 Sigmoidoscopy 2012 DTaP,Tdap,and Td Vaccines (2 - Tdap) 03/11/2015 03/11/2005 Pneumococcal Vaccine: Pediatrics (0 to 5 Years) and At-Risk Patients (6 to 64 Years) (2 - PCV) 05/10/2023 05/10/2022, 07/10/2010 Influenza Vaccine (FLU shot) (#1) 2023 08/09/2022 DIABETES-FOOT EXAM 08/09/2023 08/09/2022 DIABETES-EYE EXAM 11/30/2023 11/30/2022 HbA1c 12/16/2023 06/15/2023, 05/0 02/2023, 11/18/2022, Additional history exists Albumin/Creatinine Ratio 02/26/2024 023, 12/30/2022, 11/19/2022, Additional history exists Colorectal Cancer Screening 03/28/2024 Fecal Occult Blood Test 03/28/2024 03/28/2023 GFR 06/15/2024 06/15/2023, 05/24, 03/29/2023, Additional history exists Lipid Panel 02/26/2028 02/25/2023, 06/25/2022 Hepatitis C Screening Completed 06/25/2022 , 06/25/2022, 06/25/2022 COVID-19 Vaccine Completed 07/19/2022, , 09/11/2021, Additional history exists Zoster Vaccines Completed 08/21/2022, 05/10/2022 GARDASIL-HPV IMMUNIZATION SERIES Aged Out No longer eligible based on patient's age to complete this topic MENINGOCOCCAL (MENACTRA/MENVEO) Aged Out No longer eligible based on patient's age to complete this topic documented as of this encounter Medical Devices Not on filedocumented as of this encounter Care Teams Pre Billing Clinician Relationship Specialty Start Date End Date Rob Chisholm MD [address] [place] [address] PCP - General Family Medicine 06/23/22 documented as of this encounter
--- OUTSIDE RECORDS SUMMARY | 2023-11-24 15:28 | External Medical Summary | Summary of Care ---
Author Name Unknown Organization [facility] Address [address] [place] [address] Phone [phone] Care Team Providers Care Repossession Agent Name Role Phone Rob Chisholm MD Primary Care Provider + Reason for Visit * Reason Comments Ringworm Ring worm rash on ch est. Cream is not helping. Would like oral treatment Encounter Details Date Type Department Care Team Description 08/12/2023 Office Visit Family Practice [facility] [address] [place], [place] [id number] Juan Blanc CRNP [address] [place] [address] Tinea corporis*; BPH with obstruction/lower urinary tract symptoms; Essential (primary) hypertension Allergies No known active allergiesdocumented as of this encounter (statuses as of 08/12/2023) Medications Medication Sig Dispensed Refills Start Date [...] needed 100 Strip 11 08/09/2022 Active Hema Munoz Lanckarolina DevIndications:Typ e 2 diabetes mellitus with diabetic mononeuropathy, without long-term current use of insulin ([facility]) Check glucose one to four times daily [...] mononeuropathy, without long-term current use of insulin ([facility]) Take 1 Tablet by mouth in the [...] as of this encounter (statuses as of 08/12/2023) Active Problems Problem Noted Date BPH with obstruction/lower urinary tract symptoms 08/12/2023 Essential (primary) hypertension 023 Well adult exam 07/03/2023 Overview: 04/15 Zio- + SVT eps. Brief. 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 To ENT. Bipolar disorder 06/23/2022 Type 2 diabetes mellitus wit h diabetic mononeuropathy, without long-term current use of insulin 06/23/2022 Personal history of alcoholism 2 documented as of this encounter (statuses as of 08/12/2023) Immunizations Name Administration Dates Next Due COVID-19 mRNA, LNP-s, No Pre serve, 2-Dose Series (Moderna) 02/23/2021,01/19/2021 COVID-19, MRNA-LNP, 23-24, P F, 30 MCG/0.3 mL, 12 YRS AND ABOVE, IM ([facility]) 08/04/2023 COVID-19, mRNA, LNP-s, PF, B ooster, [...] as of this encounter Progress Notes * DOMINGO Suazo - 08/12/2023 7:11 AM EDT Images from the original note were not included. Follow up Family Medicine Visit History of Present Illness Román Garcia is a very pleasant 58 year old male with PMH listed below presenting with ringwormon chest. Intermittent, recurring. Using ketoconazole cream but doesn't improve. Social History Socioeconomic History Marital status: Single Spouse name: Not on file Number of children: Not on file Years of education: Not on file Highest education level: Not on file Occupational History Not on file Tobacco Use Smoking status: Former Packs/day: 0.50 Types: Pipe, Cigarettes Start date: 1983 Smokeless [...] on file Housing Stability: Not on file PMH: Past Medical History: Diagnosis Date DM type 2, goal HbA1c < 8% (HCC) External hemorrhoid Plantar wart severe Warthin's tumor 02/21/2023 02/16/23 FNA. Past Surgical History: Procedure Laterality Date IR BIOPSY 02/15/2023 OR TONSILLECTOMY & ADENOIDECTOMY LESS THAN AGE 14 1972 Outpatient Medications Marked as Taking for the 08/12/23 encounter (Office Visit) with DOMINGO Suazo Medication Sig busPIRone HCl 5 MG Oral Tablet (Buspar) take 1 tablet by mouth IN THE MORNING and 1 tablet BEFORE BEDTIME Losartan Potassium 50 MG Oral Tablet (Cozaar) Take 1 Tablet by mouth in the morning. Ondansetron HCl 4 MG Oral Tablet Take 1 Tablet by mouth every 8 hours as needed for Nausea. Metoclopramide HCl 10 MG Oral Tablet (Reglan) 1 Tablet. Aspirin 81 MG Oral Tablet Delayed Release (Aspirin Low Dose) Take 1 Tablet by mouth in the morning. Atorvastatin Calcium 40 MG Oral Tablet (Lipitor) Take 1 Tablet by mouth every evening. Pantoprazole Sodium 40 MG Oral Tablet Delayed Release (Protonix) Take 1 Tablet by mouth in the morning. SITagliptin Phosphate 100 MG Oral Tablet (Januvia) Take 1 Tablet by mouth in the morning. PARoxetine HCl 30 MG Oral Tablet (Paxil) take 1 tablet by mouth IN THE MORNING metFORMIN HCl 500 MG Oral Tablet (Glucophage) Take 2 Tablets by mouth 2 times a day with morning and evening meals. Ketoconazole 2 % External Cream APPLY TO AFFECTED AREA 2 TIMES A DAY. APPLY TO RASH ON CHEST OneTouch Delica Lancing Dev Check glucose one to four times daily as needed OneTouch Ultra 2 w/Device Kit Check glucose one to four times daily as needed OneTouch Ultra Blue In Vitro Strip (Glucose Blood) Check glucose one to four times daily as needed OneTouch UltraSoft Lancets Check glucose one to four times daily as needed Review of patient's allergies indicates: No Known Allergies Most Recent Immunizations Administered Date(s) Administered COVID-19 mRNA, LNP-s, No Preserve, 2-Dose Series (Moderna) 02/23/2021 COVID-19, MRNA-LNP, 23-24, PF, 30 MCG/0.3 mL, 12 YRS AND ABOVE, IM ([facility]) 08/04/2023 COVID-19, mRNA, LNP-s, PF, Booster, 100mcg/0.5mg (Moderna) 05/10/2022 Covid-19, Mrna, Lnp-s, Pf, Bivalent, 30 Mcg, IM, 12 yrs and above (Pfizer) 07/19/2022 DTaP - Dipth/Tet/Acell Pertussis (Infanrix), Peds 03/11/2005 Pneumococcal Conjugate Vaccine, 20-valent ([id number]) 06/24/2023 Pneumococcal Polysaccharide PPV23 (Pneumovax) 05/10/2022 SEASONAL INFLUENZA, PF, 6 M & Above, IM , (FLULAVAL or FLUZONE) 06/24/2023 TDAP (age 10 and older)(Boostrix) 06/24/2023 Zoster Vaccine Recombinant (Shingrix) 08/21/2022 Review of Systems: Physical Exam There were no vitals taken for this visit. Physical Exam Constitutional: Appearance: Normal appearance. HENT: Head: Normocephalic. Chest: Comments: Large annual scaly rash with hypopigmentation in center Musculoskeletal: Cervical back: Neck supple. Skin: General: Skin is warm. Neurological: Mental Status: He is alert and oriented to person, place, and time. Psychiatric: Mood and Affect: Mood normal. Assessment and Plan 1. Tinea corporis - Terbinafine HCl 250 MG Oral Tablet (Lamisil); Take 1 Tablet by mouth in the morning for 14 days. For tinea corporis. Dispense: 14 Tablet; Refill: 0 Wrap-Up I have advised the patient to call our office with any worsening or new symptoms. I spent a total of 20-29 minutes (exact time 25 mins) on the date of service in preparation, delivery, and documentation of the care provided to Román Garcia excluding any time spent in the performance of separately billed services. 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
--- OUTSIDE RECORDS SUMMARY | 2023-11-24 15:28 | External Medical Summary | Summary of Care ---
Author Name Unknown Organization [facility] Address [address] [facility] [place] [address] Phone [phone] Care Team Providers Care Wafer Polishing Lead Worker Name Role Phone Rob Chisholm MD Primary Care Provider + Reason for Visit * Reason Onset Date Comments Test Results 06/17/2023 Encounter Details Date Type Department Care Team Description 06/17/2023 Telephone General Internal Medicine [facility] [address] [place] [address] Rita Berry MD [address] [place] [address] Test Results Allergies No known active allergiesdocumented [...] Juan Blanc CRNP [address] [place] [address] 07/18/2023 Office Visit Pharmacy [facility], [facility] [place] [address] [place] [address] 07/22/2023 Cardiac Studies Cardiac Studies 11/24/2023 Imaging Radiology 12/09/2023 Office Visit Otolaryngology Kendall Armstrong, DO [address] [place] [address] Health Maintenance Due Date Last Done Comments [...] filedocumented as of this encounter Care Teams Wafer Polishing Lead Worker Relationship Specialty Start Date End Date Rob Chisholm MD [address] [place] [address] PCP - General Family Medicine 06/23/22 documented as of this encounter
--- OUTSIDE RECORDS SUMMARY | 2023-11-24 15:28 | External Medical Summary | Summary of Care ---
Author Name Unknown Organization [facility] Address [address] [place] [place] [address] Phone [phone] Care Team Providers Care Firefighter Name Role Phone Rob Chisholm MD Primary Care Provider + Reason for Visit * Reason Onset Date Comments Advice 08/09/2023 Encounter Details Date Type Department Care Team Description 08/09/[address] [facility] [address] [place] [address] Rob Chisholm MD [address] [facility] [place] [place] [id number] Advice Allergies No known active allergiesdocumented as of this encounter (statuses as of 08/10/2023) Medications Medication Sig Dispensed Refills Start Date [...] as of this encounter (statuses as of 08/10/2023) Active Problems Problem Noted Date Well adult exam 07/03/2023 Overview: 04/15 Zio- + SVT eps. Brief. 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 To ENT. Bipolar disorder 06/23/2022 Type 2 diabetes mellitus wit h diabetic mononeuropathy, without long-term current use of insulin 06/23/2022 Personal history of alcoholism documented as of this encounter (statuses as of 08/10/2023) Immunizations Name Administration Dates Next Due COVID-19 mRNA, LNP-s, No Pre serve, 2-Dose Series (Moderna) 02/23/2021,01/19/2021 COVID-19, MRNA-LNP, 23-24, P F, 30 MCG/0.3 mL, 12 YRS AND ABOVE, IM (LucidMedia-Comirnat) 08/04/2023 COVID-19, mRNA, LNP-s, PF, B ooster, 100mcg/0.5mg (Moderna) 05/10/2022,09/11/2021 Covid-19, Mrna, Lnp-s, Pf, B ivalent, 30 Mcg, IM, 12 yrs and above ([place]xie) 07/19/2022 DTaP Dipth/Tet/Acell Pertussis (Infanrix), Peds 03/11/2005 [...] encounter Miscellaneous Notes * Telephone Encounter - Cielo Alonso - 08/10/2023 9:22 AM EDT Pt scheduled with pt * Telephone Encounter - Rob Chisholm MD - 08/09/2023 2:34 PM EDT Can schedule with Pippa Blanc to discuss options * Telephone Encounter - Tessie Alvares LPN - 08/09/2023 10:42 AM EDT Patient on Ketoconazole cream for chest rash. Wanting oral alternative. Please advise * Telephone Encounter - ELIZABETH Green - 08/09/2023 10:08 AM EDT Patient states that he is on an antifungal cream for ringworm. He heard there is a pill available and is interested in trying that out. documented in this encounter Plan of Treatment Upcoming Encounters Date Type Specialty Care Team Description 11/24/2023 Imaging Radiology 12/09/2023 Office Visit Otolaryngology Kendall Armstrong DO [address] [place] [address] 01/05/2024 Office Visit Family Medicine Rob Chisholm MD [address] [place] [address] 01/16/2024 Office Visit Pharmacy [facility] [address] [place] [address] Health Maintenance Due Date Last Done Comments [...] filedocumented as of this encounter Care Teams Firefighter Relationship Specialty Start Date End Date Rob Chisholm MD [address] [place] [address] PCP - General Family Medicine 06/23/22 documented as of this encounter
--- OUTSIDE RECORDS SUMMARY | 2023-11-24 15:28 | External Medical Summary | Summary of Care ---
Author Name Unknown Organization [facility] Address [address] [place] [facility] [place] [address] Phone [phone] Care Team Providers Care Photovoltaic Solar Cell Designer Name Role Phone Rob Chisholm MD Primary Care Provider + Reason for Visit * Reason Comments Return Visit 4 month Encounter Details Date Type Department Care Team Description 06/24/2023 Office Visit Family Practice [facility] [address] [facility] [place] [address] Juan Blanc CRNP [address] [place] [address] Anxiety state*; Type 2 diabetes mellitus with diabetic mononeuropathy, without long-term current use of insulin ([facility]); Bipolar affective disorder, remission status unspecified ([facility]); Former smoker; Warthin's tumor; Personal history of alcoholism ([facility]); Need for pneumococcal vaccination; Need for influenza vaccination; Abrasion of left shoulder, initial encounter Allergies No known active allergiesdocumented as of this encounter (statuses as of 06/24/2023) Medications Medication Sig Dispensed Refills Start Date [...] Oral Tablet (Cozaar)Indications: Diabetes mellitus with nephropathy ([facility]) Take 1 Tablet by mouth in the morning. 30 Tablet 5 01/14/2023 Active Ketoconazole 2 % External Cream APPLY TO AFFECTED AREA 2 TIMES A DAY. APPLY TO RASH ON CHEST 60 g 02/10/2023 Active metFORMIN HCl 500 MG Oral [...] current use of insulin ([facility]) Take 1 Tablet by mouth in the [...] as of this encounter (statuses as of 06/24/2023) Active Problems Problem Noted Date Warthin's tumor 02/21/2023 Overview: 02/16/23 FNA. To ENT. Bipolar disorder 06/23/2022 Type 2 diabetes mellitus wit h diabetic mononeuropathy, without long-term current use of insulin 06/23/2022 Personal history of alcoholism 2 documented as of this encounter (statuses as of 06/24/2023) Immunizations Name Administration Dates Next Due COVID-19 mRNA, LNP-s, No Pre serve, 2-Dose Series (Moderna) 02/23/2021,01/19/2021 Covid-19 Mrna, Lnp-s, No Preserve, Booster (Mode rna) 05/10/2022,09/11/2021 Covid-19, Mrna, Lnp-s, Pf, B ivalent, 30 Mcg, IM, 12 yrs and above (Pfizer) 07/19/2022 DTaP - Dipth/Tet/Acell Pertussis 03/11/2005 Pneumococcal Conjugate Vaccine, 20-valent (Prevn ar20) [...] Tobacco Cessation:Counseling Given: Not Answered Comments:nicotine gum, pouchesQuit Nov 2022 Alcohol Use Standard Drinks/Week Comments Not Currently 0 (1 standard drink = 0.6 oz pure alcohol) quit years ago. hx alcoholism. Sex Assigned at Date Recorded Not on file Job Start Date Occupation Industry Not on file Not on file Not on file documented as of this encounter Last Filed Vital Signs Vital Sign Reading Time Taken Comments Blood Pressure 118/80 06/24/2023 10:32 AM EDT Pulse 96 06/24/2023 10:32 AM EDT Temperature 36.1 C (97 F) 06/24/2023 10:32 AM EDT Respiratory Rate - - Oxygen Saturation 97% 06/24/2023 10:32 AM EDT Inhaled Oxygen Concentration - - Weight 68.1 kg (150 lb 3.2 oz) 06/24/2023 10:32 AM EDT Height 172.7 cm (5' 8") 06/24/2023 10:32 AM EDT Body Mass Index 22.84 06/24/2023 10:32 AM EDT documented in this encounter Progress Notes * VENUS Herrera - 06/24/2023 11:32 AM EDT Pre-Administration Time Out Procedure Performed: Yes Patient Identified (Ask Name/Date of ): Yes Does the patient have a fever greater than 101 degrees today? No Patient allergic to latex? No Has the patient ever fainted after receiving an injection? No VFC Stock: No Immunization(s) verified: Yes, Immunization Name: Flu, Prevnar 20 (PCV20), and Tdap (Boostrix), VISSheet(s) given: Yes Verified Side and Site: Yes Verified Shot(s) with Parent(s)/Patient: Yes * DOMINGO Suazo - 06/24/2023 10:44 AM EDT Images from the original note were not included. Follow up Family Medicine Visit History of Present Illness Román Garcia is a very pleasant 57 year old male with PMH listed below presenting with return. Overall, doing well. Since witnessing his dad's , he became more conscious about his health. Seeing eye doctor and dentist, sometimes he feel overwhelmed with medical appointments. Had ER visit last month due to panic attack and n/v. Seeing [facility], scheduled EGD and colonoscopy soon. Stopped smoking since November. Diabetes - following MTM, taking metformin 2000mg, Januvia 100mg. Been watching his diets. HTN - stable on 50 mg Anxiety -- paxil seems to be helpful. Buspar was added 2 weeks ago, unsure if it's helping. Doesn'twant to increase dose for now. Considering medical marijuana card. Social History Socioeconomic History Marital status: Single [...] History: Procedure Laterality Date IR BIOPSY 02/15/2023 [place] TONSILLECTOMY & ADENOIDECTOMY LESS THAN AGE 14 1971 Outpatient Medications Marked as Taking for the 06/24/23 encounter (Office Visit) with DOMINGO Suazo Medication Sig Losartan Potassium 50 MG Oral Tablet (Cozaar) Take 1 Tablet by mouth in the morning. Ondansetron HCl 4 MG Oral Tablet Take 1 Tablet by mouth every 8 hours as needed for Nausea. busPIRone HCl 5 MG Oral Tablet (Buspar) Take 1 Tablet by mouth in the morning and 1 Tablet before bedtime. Metoclopramide HCl 10 MG Oral Tablet (Reglan) [...] 1 Tablet by mouth in the morning. Nicotine 21 MG/24HR Transdermal Patch 24 Hour (Nicoderm CQ) Place 1 Patch over 24 hours topically on the skin in the morning. On upper body/upper arm, change once a day for 6 weeks.. PARoxetine HCl 30 MG Oral Tablet (Paxil) take 1 tablet by mouth IN THE MORNING metFORMIN HCl 500 MG Oral Tablet (Glucophage) Take 2 Tablets by mouth 2 times a day with morning and evening meals. Ketoconazole 2 % External Cream APPLY TO AFFECTED AREA 2 TIMES A DAY. APPLY TO RASH ON CHEST Losartan Potassium 25 MG Oral Tablet (Cozaar) Take 1 Tablet by mouth in the morning. OneTouch Delica Lancing Dev Check glucose one to four times daily as needed Warrantlyuch Ultra 2 w/Device Kit Check glucose one to four times daily as needed OneEducanonuch Ultra Blue In Vitro Strip (Glucose Blood) Check glucose one to four times daily as needed OneToAppChina UltraSoft Lancets Check glucose one to four times daily as needed Review of patient's allergies indicates: No Known Allergies Most Recent Immunizations Administered Date(s) Administered COVID-19 mRNA, LNP-s, No Preserve, 2-Dose Series (Moderna) 02/23/2021 Covid-19 Mrna, Lnp-s, No Preserve, Booster (Moderna) 05/10/2022 Covid-19, Mrna, Lnp-s, Pf, Bivalent, 30 Mcg, IM, 12 yrs and above (Pfizer) 07/19/2022 DTaP - Dipth/Tet/Acell Pertussis 03/11/2005 Pneumococcal Polysaccharide PPV23 (Pneumovax) 05/10/2022 Seasonal Influenza, PF, 6 mons & Above, IM , (Flulaval) 08/09/2022 Zoster Vaccine Recombinant (Shingrix) 08/21/2022 Review of Systems: Physical Exam BP 118/80 | Pulse 96 | Temp 36.1 C (97 F) | Ht 1.727 m (5' 8") | Wt 68.1 kg (150 lb 3.2 oz) | SpO2 97% | BMI 22.84 kg/m | BSA 1.81 m Physical Exam Constitutional: Appearance: Normal appearance. HENT: Head: Normocephalic. Cardiovascular: Rate and Rhythm: Normal rate and regular rhythm. Pulmonary: Effort: Pulmonary effort is normal. Breath sounds: Normal breath sounds. Musculoskeletal: Cervical back: Neck supple. Skin: General: Skin is warm. Neurological: Mental Status: He is alert and oriented to person, place, and time. Psychiatric: Mood and Affect: Mood is anxious. Assessment and Plan 1. Anxiety state Continue current meds for now Meditation apps given Consider psych referral 2. Type 2 diabetes mellitus with diabetic mononeuropathy, without long-term current use of insulin (HCC) F/u MTM 3. Bipolar affective disorder, remission status unspecified (HCC) Per chart 4. Warthin's tumor F/u ENT, monitor in 6 months 5. Personal history of alcoholism (HCC) 6. Need for pneumococcal vaccination - PNEUMOCOCCAL VACC, PCV20, IM ([id number]) 7. Need for influenza vaccination - INFLUENZA VACC, QUAD, PF, 6 MONTHS & UP, 0.5 ML, IM 8. Abrasion of left shoulder, initial encounter - TDAP (AGE 10 AND OLDER)(BOOSTRIX) 9. Former smoker Wrap-Up I have advised the patient to call our office with any worsening or new symptoms. I spent a total of 20-29 minutes (exact time 25 mins) on the date of service in preparation, delivery, and documentation of the care provided to Román Garcia excluding any time spent in the performance of separately billed services. Juan Blanc, NELSY, DOMINGO [facility] documented in this encounter Nursing Notes * Donna Moncada LPN - 06/24/2023 10:32 AM EDT The patient has been properly identified by confirmation of name and date of . Chief Complaint Patient presents with Return Visit 4 month Pt states was in the hospital with DKA. Found TIA while images were done. Has colonoscopy in June. Pt has worthens tumor, biopsied, benign. In the jaw area, pt states it causes pain. Pt having more energy, less fatigue. Pt has not noticed much of a difference with the buspar. Pt dose have a lot of anxiety, dose not socialize or go out. Pt dose not often check his glucose levels, but when he dose it is around 180s. documented in this encounter Plan of Treatment Upcoming Encounters Date Type Specialty Care Team Description 07/18/2023 Office Visit Pharmacy [facility] [address] [place] [address] 07/22/2023 Cardiac Studies Cardiac Studies 11/24/2023 Imaging Radiology 12/09/2023 Office Visit Otolaryngology Kendall Armstrong DO [address] [place] [address] 01/05/2024 Office Visit Family Medicine Rob Chisholm MD [address] [place] [address] Health Maintenance Due Date Last Done Comments Hepatitis B (1 of 3 - 3-dose series) 1967 Depression Screening, Annual for Pts 12 and Over 1979 Cologuard 2012 Colonoscopy 2012 Sigmoidoscopy 2012 DIABETES-FOOT EXAM 08/09/2023 08/09/2022 DIABETES-EYE EXAM 11/30/2023 [...] of this encounter Visit Diagnoses Diagnosis Anxiety state- Primary Anxiety state, unspecified Type 2 diabetes mellitus with diabetic mononeuropathy, without long-term current use of insulin (HCC) Bipolar affective disorder, remission status unspecified (HCC) Former smoker Personal history of tobacco use, presenting hazards to health 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
--- OUTSIDE RECORDS SUMMARY | 2023-11-24 15:29 | External Medical Summary ---
Author Name Unknown Address Unknown Organization [id number]:[facility] [place] - [address] [place] [address] Laboratory Report Ordering Provider Test Date Status MARTHA RED 06/09/2023 12:07:52 Final Observation Date Value Abnormality Reference (Units ) Status Parathyrin.intact [Mass/volume] in Serum or Plasma 06/09/2023 12:07:52 51 15-65 (pg/mL) Final Performing Location [facility] [place] - [address] [place] [address]
--- OUTSIDE RECORDS SUMMARY | 2023-11-24 15:29 | External Medical Summary ---
Author Name Unknown Address Unknown Organization [id number]:[facility] [place] [address] Laboratory Report Ordering Provider Test Date Status NEDAMARTHA 06/09/2023 12:07:52 Final Observation Date Value Abnormality Reference (Units ) Status SYNC LEUKOCYTES IN BLOOD BY AUTOMATED COUNT 06/09/2023 12:07:52 11.68 Above high normal 4.00-10.80 (K/uL) Final Segs 06/09/2023 12:07:52 64.5 40.0-75.0 (%) Final Lymphs % 06/09/2023 12:07:52 24.0 18.0-42.0 (%) Final Monos 06/09/2023 12:07:52 11.0 1.0-11.0 (%) Final Eosinophils 06/09/2023 12:07:52 0.3 0.0-6.0 (%) Final Basos 06/09/2023 12:07:52 0.2 0.0-2.0 (%) Final Absolute Segs 06/09/2023 12:07:52 7.54 1.80-7.70 (K/uL) Final Lymphs, absolute 06/09/2023 12:07:52 2.80 1.00-4.80 (K/ul) Final Monos, Abs 06/09/2023 12:07:52 1.28 Above high normal 0.00-1.10 (K/uL) Final Eos, Abs 06/09/2023 12:07:52 0.04 0.00-0.70 (K/uL) Final Basos, Abs 06/09/2023 12:07:52 0.02 0.00-0.20 (K/uL) Final Performing Location [facility] [place] [address]
--- OUTSIDE RECORDS SUMMARY | 2023-11-24 15:29 | External Medical Summary ---
Author Name Unknown Address Unknown Organization [id number]:[facility] [place] [address] [facility] [place] [facility] [address] Laboratory Report Ordering Provider Test Date Status KRISTINE WERNER 06/15/2023 08:06:15 Final Observation Date Value Abnormality Reference (Units ) Status HbA1C 06/15/2023 08:06:15 8.3 Above high normal 4. 0-5.6 (%) Final The use of HbA1c to monitor glycemic status is based on normal hemoglobin and HbA composition. This test should not be used in patients with abnormal hemoglobin that affects the half life of the red blood cell or the in vivo glycation rates. Glucose, estimated average 06/15/2023 08:06:15 192 Above high normal <126 (mg/dL) Mario rivas Performing Location [facility] [place] [facility] [address] [facility] [address]
--- OUTSIDE RECORDS SUMMARY | 2023-11-24 15:29 | External Medical Summary | Summary of Care ---
Author Name Unknown Organization [facility] Address [address] [place] [address] Phone [phone] Care Team Providers Care Brim Presser Name Role Phone Rob Chisholm MD Primary Care Provider + Reason for Visit * Reason Comments Emergency Department Follow-Up The pt st candelaria he is here to follow up after a recent visit to the [facility] ED Encounter Details Date Type Department Care Team Description 06/09/2023 Office Visit General Internal Medicine [facility] [address] [place] [address] Rita Berry MD [address] [place] [address] Nausea and vomiting, unspecified vomiting type*; Hypercalcemia; Hx of metabolic acidosis with increased anion gap; Hypomagnesemia; Type 2 diabetes mellitus with diabetic mononeuropathy, without long-term current use of insulin ([facility]); Personal history of alcoholism ([facility]); Leukocytosis, unspecified type; Anxiety state Allergies No known active allergiesdocumented as of this encounter (statuses as of 06/09/2023) Medications Medication Sig Dispensed Refills Start Date End Date Status OneTouch Ultra 2 w/Device KitIndications:Type 2 diabetes mellitus with diabetic mononeuropathy, without long-term current use of insulin ([facility]) Check glucose one to four times daily as needed 1 Each 0 08/09/2022 Active OneTouch UltraSoft LancetsIndications:T ype 2 diabetes mellitus with diabetic mononeuropathy, without long-term current use of insulin ([facility]) Check glucose one to four times daily as needed 100 Each 11 08/09/2022 Active OneTouch Ultra Blue In Vitro Strip (Glucose Blood)Indications:Ty pe 2 diabetes mellitus with diabetic mononeuropathy, without long-term current use of insulin ([facility]) Check glucose one to four times daily as needed 100 Strip 11 08/09/2022 Active OneTouch Alexander Lancing DevIndications:Type 2 diabetes mellitus with diabetic mononeuropathy, without long-term current use of insulin ([facility]) Check glucose one to four times daily as needed 1 Each 0 08/09/2022 Active Losartan Potassium 25 MG Oral Tablet (Cozaar)Indications: Diabetes mellitus with nephropathy ([facility]) Take 1 Tablet by mouth in the morning. 30 Tablet 5 01/14/2023 Active Ketoconazole 2 % External Cream APPLY TO AFFECTED AREA 2 TIMES A DAY. APPLY TO RASH ON CHEST 60 g 02/10/2023 Active metFORMIN HCl 500 MG Oral Tablet (Glucophage) Take 2 Tablets by mouth 2 times a day with morning and evening meals. 360 Tablet 03/08/2023 Active PARoxetine HCl 30 MG Oral [...] mononeuropathy, without long-term current use of insulin ([facility]) Take 1 Tablet by mouth [...] every 8 hours as needed for Nausea. 0 Active busPIRone HCl 5 MG Oral Tablet (Buspar)Indications: Anxiety state Take 1 Tablet by mouth in the morning and 1 Tablet before bedtime. 60 Tablet 0 06/09/2023 Active documented as of this encounter (statuses as of 06/09/2023) Active Problems Problem Noted Date Warthin's tumor 02/21/2023 Overview: 02/16/23 FNA. To ENT. Bipolar disorder 06/23/2022 Type 2 diabetes mellitus wit h diabetic mononeuropathy, without long-term current use of insulin 06/23/2022 Personal history of alcoholism documented as of this encounter (statuses as of 06/09/2023) Immunizations Name Administration Dates Next Due COVID-19 mRNA, LNP-s, No Pre serve, 2-Dose Series (Moderna) 02/23/2021,01/19/2021 Covid-19 Mrna, Lnp-s, No Preserve, Booster (Mode rna) 05/10/2022,09/11/2021 Covid-19, Mrna, Lnp-s, Pf, B ivalent, 30 Mcg, IM, 12 yrs and above (Pfizer) 07/19/2022 DTaP - Dipth/Tet/Acell Pertussis 03/11/2005 Pneumococcal Polysaccharide PPV23 (Pneumovax) ,07/10/2010 Seasonal Influenza, Quadriva lent, No Preserve, 6 Mons & Above, IM 08/09/2022 Zoster Vaccine Recombinant (Shingrix) 08/21/2022 ,05/10/2022 [...] Sign Reading Time Taken Comments Blood Pressure 148/84 06/09/2023 11:21 AM EDT Pulse 101 06/09/2023 11:21 AM EDT Temperature 36.6 C (97.8 F) 06/09/2023 11:21 AM E DT Respiratory Rate - - Oxygen Saturation 96% 06/09/2023 11:21 AM EDT Inhaled Oxygen Concentration - - Weight 65.4 kg (144 lb 3.2 oz) 06/09/2023 11:21 AM EDT Height - - Body Mass Index 21.93 05/24/2023 12:20 PM EDT documented in this encounter Progress Notes * Rita Berry MD - 06/09/2023 11:33 AM EDT SUBJECTIVE: Román Garcia is a 57 year old male. Chief Complaint Patient presents with Emergency Department Follow-Up The pt stated he is here to follow up after a recent visit to the [facility] ED HPI: Patient presents today for ER visit from 06/07/2023. Presented with nausea and vomiting, weakness; had denied any alcohol or tobacco use - was hypertensive in the ER. Labs-WBC 13.37 HB 16, platelets 253, BMP normal except bicarb 20,anion gap 18 sugar 192, calcium 11, magnesium 1.5, normal LFT except bilirubin 1.3 .,tsh 2.2,trop-neg repeat BMP with a bicarb of 17, calcium 8.6. Was given IV fluids, magnesium IV, Reglan IV Chest x-ray negative. Discharged on Reglan 10 mg q.8 hours p.r.n.-10 tabs Reviwed last OV notes, PL,meds States continues to have nausea, was about vomit last night, got panicky called the ambulance, EMS arrived and he was advised to take Zofran and Benadryl with improved symptoms. He has had mild constipation, is being followed by GI, is scheduled for endoscopy and colonoscopy 07/04/2023 at the hospital. Trying to drink at least half a gal of water daily. Denies alcohol use states has been sober for3 years He is taking most of his medications in the morning including PPI with other medications, advised proper way of taking PPI and to take Paxil with food. Took 1 Reglan last night Also complains of increased anxiety, states diagnosed with bipolar in the past currently on Paxil 30 mg, willing to have BuSpar added twice daily for anxiety. May need to consider referral to Psychiatry given his previous history. Hemoglobin AIC Results: Lab Results Component Value Date/Time HEMOGLOBIN A1C - [facility] 7.9 (H) 02/25/2023 07:53 AM HEMOGLOBIN A1C - [facility] 6.7 (H) 11/18/2022 11:53 AM HEMOGLOBIN A1C - [facility] 10.9 (H) 06/25/2022 08:03 AM Basic Panel Results: Results for orders placed or performed in visit on 02/25/23 BASIC METABOLIC PANEL Result Value Ref Range BUN 18 6 - 20 mg/dL Creatinine 0.9 0.6 - 1.2 mg/dL Estimated Glomerular Filtration Rate >90 >=60 mL/min Sodium 136 135 - 146 mmol/L Potassium 4.9 3.5 - 5.1 mmol/L Chloride 98 98 - 107 mmol/L CO2 25 22 - 32 mmol/L Anion Gap 13 7 - 15 mmol/L Glucose 212 (H) 70 - 120 mg/dL Calcium 10.5 (H) 8.4 - 10.2 mg/dL Patient Active Problem List Diagnosis Code Bipolar disorder ([facility]) F31.9 Type 2 diabetes mellitus with diabetic mononeuropathy, without long-term current use of insulin ([facility]) E11.41 Personal history of alcoholism ([facility]) F10.21 Warthin's tumor D11.9 Current Outpatient Medications Medication Sig Dispense Refill OneTouch Ultra 2 w/Device Kit Check glucose one to four times daily as needed 1 Each 0 OneTouch UltraSoft Lancets Check glucose one to four times daily as needed 100 Each 11 OneTouch Ultra Blue In Vitro Strip (Glucose Blood) Check glucose one to four times daily as needed 100 Strip 11 OneTouch Delica Lancing Dev Check glucose one to four times daily as needed 1 Each 0 Losartan Potassium 25 MG Oral Tablet (Cozaar) Take 1 Tablet by mouth in the morning. 30 Tablet 5 Ketoconazole 2 % External Cream APPLY TO AFFECTED AREA 2 TIMES A DAY. APPLY TO RASH ON CHEST 60 g 5 metFORMIN HCl 500 MG Oral Tablet (Glucophage) Take 2 Tablets by mouth 2 times a day with morning and evening meals. 360 Tablet 1 PARoxetine HCl 30 MG [...] by mouth in the morning. 30 Tablet5 Atorvastatin Calcium 40 MG Oral Tablet (Lipitor) [...] Nausea. Pantoprazole Sodium 40 MG Oral Tablet Delayed Release (Protonix) Take 1 Tablet by mouth in the morning. 30 Tablet 5 No current facility-administered medications for this visit. Review of patient's allergies indicates: No Known Allergies OBJECTIVE: BP 148/84 | Pulse 101 | Temp 36.6 C (97.8 F) | Wt 65.4 kg (144 lb 3.2 oz) | SpO2 96% | BMI 21.93 kg/m | BSA 1.77 m PHYSICAL EXAM: General: alert, healthy, no distress, well developed Op--mm moist Heart: regular rhythm and rate,No murmurs. Lungs: lungs clear to auscultation Extremities: no edema Abdomen: Soft, non-tender, normal bowel sounds, no masses or organomegaly ASSESSMENT/PLAN: Nausea and vomiting, unspecified vomiting type (Primary) - COMPREHENSIVE METABOLIC PANEL; Future; Expected date: 06/09/2023 Hypercalcemia - COMPREHENSIVE METABOLIC PANEL; Future; Expected date: 06/09/2023 - 25-HYDROXY VITAMIN D; Future; Expected date: 06/09/2023 - PTH; Future; Expected date: 06/09/2023 - PHOSPHORUS; Future; Expected date: 06/09/2023 - MAGNESIUM; Future; Expected date: 06/09/2023 Hx of metabolic acidosis with increased anion gap - COMPREHENSIVE METABOLIC PANEL; Future; Expected date: 06/09/2023 Hypomagnesemia - COMPREHENSIVE METABOLIC PANEL; Future; Expected date: 06/09/2023 - MAGNESIUM; Future; Expected date: 06/09/2023 Type 2 diabetes mellitus with diabetic mononeuropathy, without long-term current use of insulin ([facility]) Personal history of alcoholism ([facility]CC) Leukocytosis, unspecified type - CBC WITH WBC DIFFERENTIAL; Future; Expected date: 06/09/2023 - URINALYSIS, REFLEX TO MICROSCOPIC; Future; Expected date: 06/09/2023 Anxiety state - busPIRone HCl 5 MG Oral Tablet (Buspar); Take 1 Tablet by mouth in the morning and 1 Tablet before bedtime. ---repeat labs. - take PPI One pill by mouth once a day 1 hour before the first meal of the day, await egd +colo 07/04/23, Gi considering GES -ct zofran prn, add buspar -keep fu pcp appt in JUN Follow Up: Return if symptoms worsen or fail to improve. (This note was completed using the dictation program Fluency Direct. As such, there may be misspellings, word substitutions, or other variations that should not change the essence of the clinical content of this encounter note. If there is need for further clarification, please direct questions to the provider listed above.) Patient and / caregiver verbalize understanding of above instructions and agrees with plan of care. Rita Berry MD 06/09/2023 documented in this encounter Nursing Notes * Jatin Mccarthy LPN - 06/09/2023 11:21 AM EDT Chief Complaint Patient presents with Emergency Department Follow-Up The pt stated he is here to follow up after a recent visit to the [facility] ED documented in this encounter Plan of Treatment Upcoming Encounters Date Type Specialty Care Team Description 06/15/2023 Laboratory Laboratory [facility] [address] [place] [address] 06/24/2023 Office Visit Family Medicine Juan Blanc CRNP [address] [place] [address] 07/18/2023 Office Visit [facility] [address] [place] [address] 07/22/2023 Cardiac Studies Cardiac Studies 11/24/2023 Imaging Radiology 12/09/2023 Office Visit Otolaryngology Kendall Armstrong DO [address] [place] [address] Pending Results Name Type Priority Associated Diagnoses Date /Time COMPREHENSIVE METABOLIC PANEL Lab STAT Nausea and vomiting, unspecified vomiting type Hypercalcemia Hx of metabolic acidosis with increased anion gap Hypomagnesemia 06/09/2023 12:07 PM EDT 25-HYDROXY VITAMIN D Lab STAT Hypercalcemia 06/09/2023 12:07 PM EDT PTH Lab STAT Hypercalcemia 06/09/2023 12:07 PM EDT PHOSPHORUS Lab STAT Hypercalcemia 06/09/2023 12:07 PM EDT MAGNESIUM Lab STAT Hypercalcemia Hypomagnesemia 06/09/2023 12:07 PM EDT Scheduled Orders Name Type Priority Associated Diagnoses Orde r Schedule COMPREHENSIVE METABOLIC PANEL Lab STAT Nausea and vomiting, unspecified vomiting type Hypercalcemia Hx of metabolic acidosis with increased anion gap Hypomagnesemia Expected: 06/09/2023 (Approximate), Expires: 06/08/2024 25-HYDROXY VITAMIN D Lab STAT Hypercalcemia Expected: 06/09/2023 (Approximate), Expires: 06/08/2024 PTH Lab STAT Hypercalcemia Expected: 06/09/2023 (Approximate), Expires: 06/08/2024 PHOSPHORUS Lab STAT Hypercalcemia Expected: 06/09/2023 (Approximate), Expires: 06/08/2024 MAGNESIUM Lab STAT Hypercalcemia Hypomagnesemia Expected: 06/09/2023 (Approximate), Expires: 06/08/2024 Health Maintenance Due Date Last Done Comments [...] (#1) 2023 08/09/2022 DIABETES-FOOT EXAM 08/09/2023 08/09/2022 HbA1c 08/28/2023 02/25/2023, 10/25, 06/25/2022 DIABETES-EYE EXAM 11/30/2023 11/30/2022 Albumin/Creatinine Ratio 02/26/2024 023, 12/30/2022, 11/19/2022, Additional history exists Colorectal Cancer Screening 03/28/2024 Fecal Occult Blood Test 03/28/2024 03/28/2023 GFR 03/29/2024 03/29/2023, 06/0 10/2022, 02/25/2023, Additional history exists Lipid Panel 02/26/2028 02/25/2023, [...] as of this encounter Results * (ABNORMAL) URINALYSIS, REFLEX TO MICROSCOPIC (06/09/2023 12:07 PM EDT) Color, Urine Yellow Light Yellow, Yellow, Dark Yellow 06/09/2023 12:32 PM EDT [facility] Clarity, Urine Clear Clear 06/09/2023 12:32 PM EDT [facility] Glucose, Urine Negative Negative mg/dL 06/09/2023 12:32 PM EDT [facility] Bilirubin, Urine Negative Negative 06/09/2023 12:32 PM EDT [facility] Ketone, Urine 40(A) Negative mg/dL 06/09/2023 12:32 PM EDT [facility] Specific [place], Urine 1.015 1.003 - 1.030 06/09/2023 12:32 PM EDT [address] Blood, Urine Trace(A) Negative 06/09/2023 12:32 PM EDT [address] pH, Urine 5.5 5.0 - 7.5 Units 06/09/2023 12:32 PM EDT [address] Protein, Urine 100(A) Negative mg/dL 06/09/2023 12:32 PM EDT [address] Urobilinogen, Urine 0.2 0.2, 1.0 mg/dL 06/09/2023 12:32 PM EDT [address] Nitrite, Urine Negative Negative 06/09/2023 12:32 PM EDT [address] Esterase, Urine Negative Negative 06/09/2023 12:32 PM EDT [address] Urine Urine specimen obtained by clean catch procedure / Unknown Non-blood Collection / Unknown 06/09/2023 12:07 PM EDT 06/09/2023 12:07 PM EDT Rita Berry MD LAB URINE ORDERABLES [place] [address] [place] [address] documented in this encounter Visit Diagnoses Diagnosis Nausea and vomiting, unspecified vomiting type- Primary Hypercalcemia Hx of metabolic acidosis with increased anion gap Personal history of other endocrine, metabolic, and immunity disorders Hypomagnesemia Disorders of magnesium metabolism Type 2 diabetes mellitus with diabetic mononeuropathy, without long-term current use of insulin ([facility]) Personal history of alcoholism ([facility]CC) Personal history of alcoholism Leukocytosis, unspecified type Anxiety state Anxiety state, unspecified documented in this encounter Care Teams Brim Presser Relationship Specialty Start Date End Date Rob Chisholm MD [address] [place] [address] PCP - General Family Medicine 06/23/22 documented as of this encounter"
--- OUTSIDE RECORDS SUMMARY | 2023-11-24 15:29 | External Medical Summary ---
Author Name Unknown Address Unknown Organization [id number]:[facility] [address] [place] [address] Laboratory Report Ordering Provider Test Date Status MARTHA RED 06/09/2023 12:07:52 Final Observation Date Value Abnormality Reference (Units ) Status BUN 06/09/2023 12:07:52 12 6-20 (mg/dL) Final Creatinine 06/09/2023 12:07:52 0.9 0.6-1.2 (mg/dL) Final Glomerular filtration rate/1.73 sq M.predicted [Volume Rate/Area] in Serum, Plasma or Blood by Creatinine-based formula (CKD-EPI) 06/09/2023 12:07:52 >90 >=60 (mL/min) Final eGFR is calculated based on the CKD-EPI 2020 equation SODIUM 06/09/2023 12:07:52 133 Below low normal 135 -146 (mmol/L) Final Potassium 06/09/2023 12:07:52 4.0 3.5-5.1 (m mol/L) Final Cl 06/09/2023 12:07:52 95 Below low normal 98- 107 (mmol/L) Final CO2 06/09/2023 12:07:52 23 22-32 (mmo l/L) Final Anion gap 06/09/2023 12:07:52 15 7-15 (mmol /L) Final Glucose 06/09/2023 12:07:52 204 Above high normal 70 -120 (mg/dL) Final Albumin 06/09/2023 12:07:52 4.9 3.8-5.0 (g /dL) Final AST (Aspartate aminotransferase) 06/09/2023 12:07:52 27 10-50 (U/L) Fin al Alk Phos 06/09/2023 12:07:52 78 35-130 (U/ L) Final Bilirubin, Total 06/09/2023 12:07:52 0.9 <=1 .2 (mg/dL) Final Calcium 06/09/2023 12:07:52 10.1 8.4-10.2 ( mg/dL) Final Protein 06/09/2023 12:07:52 7.5 6.0-8.3 (g /dL) Final ALT (Alanine aminotransferase) 06/09/2023 12:07:52 25 10-50 (U/L) Mario rivas Performing Location [facility] [address] [place] [address]
--- OUTSIDE RECORDS SUMMARY | 2023-11-24 15:29 | External Medical Summary ---
Author Name Unknown Address Unknown Organization [id number]:[facility] [place] [address] Laboratory Report Ordering Provider Test Date Status MARTHA RED 06/09/2023 12:07:52 Final Observation Date Value Abnormality Reference (Units ) Status Color of Urine by Auto 06/09/2023 12:07:52 Yellow Light Yellow, Yellow, Dark Yellow Final Clarity, Urine 06/09/2023 12:07:52 Clear Clear Final Glucose [Mass/volume] in Urine by Automated test strip 06/09/2023 12:07:52 Negative Negative (mg/dL) Final Bilirubin.total [Presence] in Urine by Automated test strip 06/09/2023 12:07:52 Negative Negative Final Ketones [Mass/volume] in Urine by Automated test strip 06/09/2023 12:07:52 40 Abnormal Negative (mg/dL) Final Specific gravity, Urine 06/09/2023 12:07:52 1.015 1.003-1.030 Final Hemoglobin [Presence] in Urine by Automated test strip 06/09/2023 12:07:52 Trace Abnormal Negative Final pH, Urine 06/09/2023 12:07:52 5.5 5.0-7.5 (Units) Final Protein [Mass/volume] in Urine by Automated test strip 06/09/2023 12:07:52 100 Abnormal Negative (mg/dL) Final Urobilinogen [Mass/volume] in Urine by Automated test strip 06/09/2023 12:07:52 0.2 0.2, 1.0 (mg/dL) Final Nitrite [Presence] in Urine by Automated test strip 06/09/2023 12:07:52 Negative Negative Final Leukocyte esterase [Presence] in Urine by Automated test strip 06/09/2023 12:07:52 Negative Negative Final Performing Location [facility] [place] [address]
--- OUTSIDE RECORDS SUMMARY | 2023-11-24 15:29 | External Medical Summary | Summary of Care ---
Author Name Unknown Organization [facility] Address [address] [place] [address] Phone [phone] Care Team Providers Care Staff Development Educator Name Role Phone Rob Chisholm MD Primary Care Provider + Reason for Visit * Reason Comments Outpatient Testing Encounter Details Date Type Department Care Team Description 06/15/2023 Laboratory [facility] [address] [facility] [address] [facility] [address] [place] [address] Type 2 diabetes mellitus with diabetic mononeuropathy, without long-term current use of insulin (HCC) Allergies No known active allergiesdocumented as of this encounter (statuses as of 06/15/2023) Medications Medication Sig Dispensed Refills Start Date End Date Status Your Truman Showuch Ultra 2 w/Device KitIndications:Type 2 diabetes mellitus [...] as needed 100 Strip 11 08/09/2022 Active SudhaGeraldo Patterson DevIndications:Type 2 diabetes mellitus with diabetic [...] for Nausea. 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 To ENT. Bipolar disorder 06/23/2022 Type 2 diabetes mellitus wit h diabetic mononeuropathy, without long-term current use of insulin 06/23/2022 Personal history of alcoholism 2 documented as of this encounter (statuses as of 06/15/2023) Immunizations Name Administration Dates Next Due COVID-19 [...] Medicine Juan Blanc CRNP [address] [place] [address] 07/18/2023 Office Visit Pharmacy [facility] [address] [place] [address] 07/22/2023 Cardiac Studies Cardiac Studies 11/24/2023 Imaging Radiology 12/09/2023 Office Visit Otolaryngology Kendall Armstrong DO [address] [place] [address] Pending Results Name Type Priority Associated Diagnoses Date /Time HEMOGLOBIN A1C Lab Routine Type 2 diabetes mellitus with diabetic mononeuropathy, without long-term current use of insulin (HCC) 06/15/2023 8:06 AM EDT BASIC METABOLIC PANEL Lab Routine Type 2 diabetes mellitus with diabetic mononeuropathy, without long-term current use of insulin (HCC) 06/15/2023 8:06 AM EDT Health Maintenance Due Date Last Done [...] Fecal Occult Blood Test 03/28/2024 03/28/2023 GFR 06/09/2024 06/09/2023, 0603/2023, 03/24/2023, Additional history exists Lipid Panel 02/26/2028 02/25/2023, [...] (HCC) documented in this encounter Care Teams Staff Development Educator Relationship Specialty Start Date End Date Rob Chisholm MD [address] [place] [address] PCP - General Family Medicine 06/23/22 documented as of this encounter
--- OUTSIDE RECORDS SUMMARY | 2023-11-24 15:29 | External Medical Summary ---
Author Name Unknown Address Unknown Organization [id number]:[facility] [place] [address] Laboratory Report Ordering Provider Test Date Status MARTHA RED 06/09/2023 12:07:52 Final Observation Date Value Abnormality Reference (Units ) Status Magnesium 06/09/2023 12:07:52 1.8 1.5-2.6 (m g/dL) Final Performing Location [facility] [place] [address]
--- OUTSIDE RECORDS SUMMARY | 2023-11-24 15:29 | External Medical Summary ---
Author Name Unknown Address Unknown Organization [id number]:[facility] [place] [address] [place] [address] Laboratory Report Ordering Provider Test Date Status MARTHA RED 06/09/2023 12:07:52 Final Deficient: <20 ng/mL
Ins ufficient: 20-29 ng/mL
Recommended/Optimum:30-50 ng/mL

Vitamin D intoxication is rare. If suspicious of Vitamin D toxicity, evaluation of serum Calcium and PTH is recommended. Observation Date Value Abnormality Reference (Units ) Status 25-OH Vitamin D total 06/09/2023 12:07:52 26 >19 (ng/mL) Final Performing Location [facility] - [address] [place] [address]
--- OUTSIDE RECORDS SUMMARY | 2023-11-24 15:29 | External Medical Summary ---
Author Name Unknown Address Unknown Organization K09:[facility] [place] [address] Laboratory Report Ordering Provider Test Date Status MARTHA RED 06/09/2023 12:07:52 Final Observation Date Value Abnormality Reference (Units ) Status WBC, Total 06/09/2023 12:07:52 11.68 Above high normal 4 .00-10.80 (K/uL) Final RBC 06/09/2023 12:07:52 4.66 4.50-5.25 (M/uL) Final Hemoglobin 06/09/2023 12:07:52 15.1 14.0-16.8 (g/dL) Final HCT 06/09/2023 12:07:52 43.0 40.0-48.4 (%) Final MCV 06/09/2023 12:07:52 92.3 82.0-99.5 (fL) Final MCH 06/09/2023 12:07:52 32.4 27.0-34.0 (pg) Final MCHC 06/09/2023 12:07:52 35.1 32.0-36.0 (g/dL) Final RDW 06/09/2023 12:07:52 13.3 11.5-15.5 (%) Final Platelets 06/09/2023 12:07:52 262 140-400 (K /uL) Final MPV 06/09/2023 12:07:52 7.9 6.6-11.1 ( fL) Final Performing Location [facility] [place] [address]
--- OUTSIDE RECORDS SUMMARY | 2023-11-24 15:29 | External Medical Summary ---
Author Name Unknown Address Unknown Organization [id number]:[facility] [place] [address] Laboratory Report Ordering Provider Test Date Status MARTHA RED 06/09/2023 12:07:52 Final Observation Date Value Abnormality Reference (Units ) Status Phosphate 06/09/2023 12:07:52 2.6 2.5-4.8 (m g/dL) Final Performing Location [facility] [place] [address]
--- OUTSIDE RECORDS SUMMARY | 2023-11-24 15:29 | External Medical Summary | Summary of Care ---
Author Name Unknown Organization [facility] Address [address] [address] Phone [phone] Care Team Providers Care Handkerchief Cutter Name Role Phone Rob Chisholm MD Primary Care Provider + Reason for Visit * Reason Onset Date Comments Med Request 06/09/2023 Encounter Details Date Type Department Care Team Description 06/09/2023 Telephone Family Practice [facility] [address] [place] [id number] Rob Chisholm MD [address] [place] [id number] Med Request Allergies No known active allergiesdocumented as of this encounter (statuses as of 06/10/2023) Medications Medication Sig Dispensed Refills Start Date End Date Status OneTouch Ultra 2 w/Device KitIndications:Ty pe 2 diabetes mellitus with diabetic mononeuropathy, without long-term current use of insulin ([facility]) Check glucose one to four times daily as needed 1 Each 0 08/09/2022 Active OneTouch UltraSoft LancetsIndication s:Type 2 diabetes mellitus with diabetic mononeuropathy, without long-term current use of insulin ([facility]) Check glucose one to four [...] for Nausea. 20 Tablet 2 06/10/2023 Active Ondansetron HCl 4 MG Oral Tablet Take 1 Tablet by mouth every 8 hours as needed for Nausea. 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 To ENT. Bipolar disorder 06/23/2022 Type 2 diabetes mellitus wit h diabetic mononeuropathy, without long-term current use of insulin 06/23/2022 Personal history of alcoholism documented as of this encounter (statuses as of 06/10/2023) Immunizations Name Administration Dates Next Due COVID-19 [...] encounter Miscellaneous Notes * Telephone Encounter - Hayley Tavarez CPhT - 06/09/2023 4:12 PM EDT Patient calling requesting the following medication below that is listed as "Historical". The following information was provided: Medication Name: Ondansetron HCl 4 MG Oral Tablet Strength: 4mg Directions: Take 1 Tablet by mouth every 8 hours as needed for Nausea Preferred Quantity: 12 Previous Prescriber: Jatin Mccarthy LPN Preferred [facility]: [id number] Please review and approve if appropriate. Thank you, Hayley Tavarez Site Technician [facility] 06/09/2023, 4:13 PM documented in this encounter Plan of Treatment Upcoming Encounters Date Type Specialty Care Team Description 06/15/2023 Laboratory [facility] [address] [place] [address] 06/24/2023 Office Visit Family Medicine Juan Blanc CRNP [address] [place] [address] 07/18/2023 Office Visit Pharmacy [facility] [address] [place] [address] 07/22/2023 Cardiac Studies Cardiac Studies 11/24/2023 Imaging Radiology 12/09/2023 Office Visit Otolaryngology Kendall Armstrong DO [address] [place] [address] Health Maintenance Due Date Last Done Comments [...] filedocumented as of this encounter Care Teams Handkerchief Cutter Relationship Specialty Start Date End Date Rob Chisholm MD [address] [place] [address] PCP - General Family Medicine 06/23/22 documented as of this encounter
--- OUTSIDE RECORDS SUMMARY | 2023-11-24 15:29 | External Medical Summary ---
Author Name Unknown Address Unknown Organization [id number]:[facility] [place] [address] Laboratory Report Ordering Provider Test Date Status MARTHA RED 06/09/2023 12:07:52 Final Observation Date Value Abnormality Reference (Units ) Status RBC, Urine 06/09/2023 12:07:52 3-5 Abnormal 0-2 (/HPF) Final WBC, Urine 06/09/2023 12:07:52 0-2 0-2 (/HPF) Final Bacteria [#/area] in Urine sediment by Microscopy high power field 06/09/2023 12:07:52 0-25 0-25 (/HPF) Final Performing Location [facility] [place] [address]
--- OUTSIDE RECORDS SUMMARY | 2023-11-24 15:29 | External Medical Summary ---
Author Name Unknown Address Unknown Organization [id number]:[facility] [address] [place] [address] Laboratory Report Ordering Provider Test Date Status KRISTINE [facility] 06/15/2023 08:06:15 Final Observation Date Value Abnormality Reference (Units ) Status BUN 06/15/2023 08:06:15 14 6-20 (mg/dL) Final Creatinine 06/15/2023 08:06:15 0.9 0.6-1.2 (mg/dL) Final Glomerular filtration rate/1.73 sq M.predicted [Volume Rate/Area] in Serum, Plasma or Blood by Creatinine-based formula (CKD-EPI) 06/15/2023 08:06:15 >90 >=60 (mL/min) Final eGFR is calculated based on the CKD-EPI 2020 equation SODIUM 06/15/2023 08:06:15 141 135-146 (m mol/L) Final Potassium 06/15/2023 08:06:15 3.9 3.5-5.1 (m mol/L) Final Cl 06/15/2023 08:06:15 100 98-107 (mm ol/L) Final CO2 06/15/2023 08:06:15 29 22-32 (mmo l/L) Final Anion gap 06/15/2023 08:06:15 12 7-15 (mmol /L) Final Glucose 06/15/2023 08:06:15 174 Above high normal 70 -120 (mg/dL) Final Calcium 06/15/2023 08:06:15 9.6 8.4-10.2 ( mg/dL) Final Performing Location [facility] [address] [place] [address]
--- OUTSIDE RECORDS SUMMARY | 2023-11-24 15:29 | External Medical Summary | Summary of Care ---
Author Name Unknown Organization [facility] Address [address] [place] [address] Phone [phone] Care Team Providers Care Top Lift Scourer Name Role Phone Rob Chisholm MD Primary Care Provider + Reason for Visit * Reason Comments Outpatient Testing Encounter Details Date Type Department Care Team Description 06/09/2023 Laboratory Laboratory [facility] [address] [place] [address] [facility] [address] [place] [address] Nausea and vomiting, unspecified vomiting type; Hypercalcemia; Hx of metabolic acidosis with increased anion gap; Hypomagnesemia; Leukocytosis, unspecified type Allergies No known active allergiesdocumented as of this encounter (statuses as of 06/09/2023) Medications Medication Sig Dispensed Refills Start Date End Date Status OneTouch Ultra 2 w/Device KitIndications:Type 2 diabetes mellitus with diabetic mononeuropathy, without long-term current use of insulin ([facility]) Check glucose one to four times daily as needed 1 Each 0 08/09/2022 Active OneTouch UltraSoft LancetsIndications:T ype 2 diabetes mellitus with diabetic mononeuropathy, without long-term current use of insulin ([facility]) Check glucose one to four times daily as needed 100 Each 11 08/09/2022 Active OneTouch Ultra Blue In Vitro Strip (Glucose Blood)Indications:Ty pe 2 diabetes mellitus with diabetic mononeuropathy, without long-term current use of insulin ([facility]) Check glucose one to four times [...] hours as needed for Nausea. 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 To ENT. Bipolar disorder 06/23/2022 Type [...] Description 06/15/2023 Laboratory [facility] [address] [place] [address] 06/24/2023 Office Visit Family Medicine Juan Blanc CRNP [address] [place] [address] 07/18/2023 Office Visit [facility] [address] [place] [address] 07/22/2023 Cardiac Studies Cardiac Studies 11/24/2023 Imaging Radiology 12/09/2023 Office Visit Otolaryngology Kendall Armstrong DO [address] [place] [address] Pending Results Name Type Priority Associated Diagnoses [...] STAT Hypercalcemia Hypomagnesemia 06/09/2023 12:07 PM EDT URINALYSIS, REFLEX TO MICROSCOPIC Lab STAT Leukocytosis, unspecified type 06/09/2023 12:07 PM EDT MICROSCOPIC EXAM, URINE Lab STAT Leukocytosis, unspecified type 06/09/2023 12:07 PM EDT Health Maintenance Due Date Last [...] Procedure Name Priority Date/Time Associated Diagnosis Comments DIFFERENTIAL, AUTOMATED STAT 06/09/2023 12:07 PM EDT Leukocytosis, unspecified type CBC WITH WBC DIFFERENTIAL STAT 06/09/2023 12:07 PM EDT Leukocytosis, unspecified type CBC STAT 06/09/2023 12:07 PM EDT Leukocytosis, unspecified type documented in this encounter Results * (ABNORMAL) DIFFERENTIAL, AUTOMATED (06/09/2023 12:07 PM EDT) WBC 11.68(H) 4.00 - 10.80 K/uL 06/09/2023 12:16 PM EDT [facility] 56-02 Neutrophils % 64.5 40.0 - 75.0 % 06/09/2023 12:16 PM EDT [facility] 56-02 Lymphocytes % 24.0 18.0 - 42.0 % 06/09/2023 12:16 PM EDT [facility] 56-02 Monocytes % 11.0 1.0 - 11.0 % 06/09/2023 12:16 PM EDT [facility] 56 Eosinophils % 0.3 0.0 - 6.0 % 06/09/2023 12:16 PM EDT [facility] 56 Basophils % 0.2 0.0 - 2.0 % 06/09/2023 12:16 PM EDT [facility] 56 Absolute Neutrophils 7.54 1.80 - 7.70 K/uL 06/09/2023 12:16 PM EDT [facility] 56 Absolute Lymphocytes 2.80 1.00 - 4.80 K/ul 06/09/2023 12:16 PM EDT [facility] 56 Absolute Monocytes 1.28(H) 0.00 - 1.10 K/uL 06/09/2023 12:16 PM EDT [facility] 56 Absolute Eosinophils 0.04 0.00 - 0.70 K/uL 06/09/2023 12:16 PM EDT [facility] 56 Absolute Basophils 0.02 0.00 - 0.20 K/uL 06/09/2023 12:16 PM EDT [facility] Blood Venous blood specimen / Unknown Venipuncture / Unknown 06/09/2023 12:07 PM EDT 06/09/2023 12:07 PM EDT Rita Berry MD LAB BLOOD ORDERABLES [facility] [address] [place] [address] * (ABNORMAL) CBC (06/09/2023 12:07 PM EDT) WBC 11.68(H) 4.00 - 10.80 K/uL 06/09/2023 12:16 PM EDT [facility] 56 RBC 4.66 4.50 - 5.25 M/uL 06/09/2023 12:16 PM EDT [facility] 56 HGB 15.1 14.0 - 16.8 g/dL 06/09/2023 12:16 PM EDT [facility] 56 HCT 43.0 40.0 - 48.4 % 06/09/2023 12:16 PM EDT [facility] 56 MCV 92.3 82.0 - 99.5 fL 06/09/2023 12:16 PM EDT LABORATORY [address] MCH 32.4 27.0 - 34.0 pg 06/09/2023 12:16 PM EDT [address] MCHC 35.1 32.0 - 36.0 g/dL 06/09/2023 12:16 PM EDT [address] RDW 13.3 11.5 - 15.5 % 06/09/2023 12:16 PM EDT [address] PLT 262 140 - 400 K/uL 06/09/2023 12:16 PM EDT [address] MPV 7.9 6.6 - 11.1 fL 06/09/2023 12:16 PM EDT [address] Blood Venous blood specimen / Unknown Venipuncture / Unknown 06/09/2023 12:07 PM EDT 06/09/2023 12:07 PM EDT Rita Berry MD LAB BLOOD ORDERABLES [facility] [address] [place] [address] documented in this encounter Visit Diagnoses Diagnosis Nausea and vomiting, unspecified vomiting type Hypercalcemia Hx of metabolic acidosis with increased anion gap Personal history of other endocrine, metabolic, and immunity disorders Hypomagnesemia Disorders of magnesium metabolism Leukocytosis, unspecified type documented in this encounter Care Teams Top Lift Scourer Relationship Specialty Start Date End Date Rob Chisholm MD [address] [place] [address] PCP - General Family Medicine 06/23/22 documented as of this encounter
[2023-11-24 18:02] LABS: Calcium 8.6 mg/dl (8.6-10.3)
[2023-11-24 18:08] LABS: BUN Creatinine Ratio 13.2 (10-20); Creatinine Clr Calc Pharmacy 86.2 ml/min; Est GFR (African American) 108.8 ml/min; Est GFR (Non-African American) 93.9 ml/min; Magnesium 1.8 mg/dl (1.7-2.4); Phosphorus 2.2 mg/dl (2.5-4.9); Potassium 3.3 mmol/L (3.5-5.1)
[2023-11-24] MEDS: LANTUS PER UNIT CHARGE SC SCH (19:32)
[2023-11-24] MEDS: ATORVASTATIN 40 MG TAB PO SCH (21:01)
[2023-11-24] MEDS: ONDANSETRON INJ 2 MG/ML 2 ML VIAL IV PRN (21:01)
[2023-11-24] MEDS: POTASSIUM CHLORIDE CRTAB 20 MEQ TABCR PO STA (23:05)
--- NOTE | 2023-11-24 23:19 | Emergency Department Note ---
History of Present Illness General Chief complaint: Vomiting Stated complaint: VOMITTING Time Seen by Provider: 11/24/23 02:48 History of Present Illness Maximum Pain Intensity: 9 This is a 58-year-old male presenting to the emergency department for evaluation of nausea and vomiting for the past week. He has abdominal cramping with the nausea and vomiting but no significant pain. Symptoms began roughly 5 days ago. He did start Ozempic 6 days ago which may be contributing to his symptoms. The patient is diabetic and sugars have been in the high 100s/low 200s. He is on metformin and not insulin. He rates his current discomfort a 07/03. Home Medications Medication Instructions Recorded Confirmed Type aspirin 81 mg tablet,delayed 81 mg PO DAILY 11/24/23 11/24/23 History release atorvastatin 40 mg tablet 40 mg PO HS 11/24/23 11/24/23 History buspirone 5 mg tablet 5 mg PO BID 11/24/23 11/24/23 History losartan 50 mg tablet 50 mg PO DAILY 11/24/23 11/24/23 History metformin 500 mg tablet,extended 2,000 mg PO DAILY 11/24/23 11/24/23 History release 24 hr nicotine 21 mg/24 hr daily 21 mg topical DAILY 11/24/23 11/24/23 History transdermal patch pantoprazole 40 mg tablet,delayed 40 mg PO DAILY 11/24/23 11/24/23 History release paroxetine HCl 30 mg tablet 30 mg PO DAILY 11/24/23 11/24/23 History semaglutide 0.25 mg or 0.5 mg (2 0.25 mg subcut WK 11/24/23 11/24/23 History mg/3 mL) subcutaneous pen injector (Ozempic) Allergies Allergy/AdvReac Type Severity Reaction Status Date / Time No Known Allergies Allergy Unverified 06/07/23 11:27 Past Med/Surg History Medical History (Updated 11/24/23 @ 23:19 by Manuel Harris PA-C) Diabetes PTSD (post-traumatic stress disorder) Surgical History No pertinent past surgical history Social History Smoking Status: Never smoker Tobacco Type: Cigarettes Cigarettes Per Day: 1 pack/day; Second Hand Exposure: No; Do You Dip or Chew Tobacco: No; Tobacco Cessation Education Requested by Patient: No Hx Alcohol Use: No Hx Substance Use: Yes Last Used Substance Other:: 1-2 weeks ago Substance Use Type Other:: medical marijuana Preferred Language: Estonian Communication Ability: Effective Safety And Security Officer Required: No Beliefs That Will Affect Care: None Current Living Situation: Alone Other Information That Helps Us Care for You: No Feels Safe at Home: Yes Assistive Devices: Cane Review of Systems A total of 10 systems reviewed and were otherwise negative Physical Exam Vital Signs Vital Signs - 24 hr 11/24/23 02:44 11/24/23 02:56 11/24/23 03:04 Pulse Rate 123 H 118 H 114 H Pulse Rate from SpO2 Sensor Respiratory Rate 22 19 Respiratory Effort / Characteristics Non-Labored Spontaneous Respiratory Depth Normal Blood Pressure 179/88 H 185/115 H Blood Pressure Mean 118 138 Pulse Oximetry 100 95 Oxygen Delivery Method Room Air Room Air Sepsis Recent Fever Within 48 Hours No Sepsis New/Unexplained Change in Mental Status No Sepsis Action Taken by Nursing No Action Required 11/24/23 03:49 11/24/23 04:00 11/24/23 04:30 Pulse Rate 108 H 106 H 104 H Pulse Rate from SpO2 Sensor 109 H 106 H 105 H Respiratory Rate 12 15 23 Respiratory Effort / Characteristics Respiratory Depth Blood Pressure 187/111 H 187/107 H 185/113 H Blood Pressure Mean 136 133 137 Pulse Oximetry 100 100 100 Oxygen Delivery Method Room Air Room Air Room Air Sepsis Recent Fever Within 48 Hours Sepsis New/Unexplained Change in Mental Status Sepsis Action Taken by Nursing 11/24/23 05:00 11/24/23 05:30 Pulse Rate 116 H 105 H Pulse Rate from SpO2 Sensor Respiratory Rate 17 16 Respiratory Effort / Characteristics Respiratory Depth Blood Pressure 188/114 H 181/107 H Blood Pressure Mean 138 131 Pulse Oximetry 97 95 Oxygen Delivery Method Room Air Room Air Sepsis Recent Fever Within 48 Hours Sepsis New/Unexplained Change in Mental Status Sepsis Action Taken by Nursing VITALS: Vitals are noted on the nurse's note and reviewed by myself. Vital signs stable. GENERAL: Well-developed, well-nourished, white male who appears ill on presentation., EARS: External ear normal. External auditory canals clear, tympanic membranes pearly hernández without erythema or effusion bilaterally. EYES: Pupils equal round and reactive to light and accommodation. Conjunctivae without injection, sclerae without icterus. Extraocular movements intact. NOSE: Patent, turbinates without inflammation or discharge. MOUTH: Mucous membranes dry NECK: Supple without nuchal rigidity. No lymphadenopathy. No thyromegaly. Cervical spine is nontender. HEART: Regular rate and rhythm without murmurs gallops or rubs. LUNGS: Clear to auscultation bilaterally without wheezes, rales or rhonchi. No retractions or accessory muscle use. ABDOMEN: Positive normal bowel sounds x 4. Soft, nontender, without masses or organomegaly. No guarding or rebound tenderness. MUSCULOSKELETAL: No muscle atrophy, erythema, or edema noted. Full range of motion in all extremities. Course Administered Medications Aspirin (Aspirin 81 Mg Ectab) 81 mg PO DAILY MAGGIE Stop: 12/24/23 08:59 Last Admin: 11/24/23 10:16 Dose: 81 mg Documented By: DAMIAN Atorvastatin Calcium (Atorvastatin 40 Mg Tab) 40 mg PO HS MAGGIE Stop: 12/24/23 20:59 Last Admin: 11/24/23 21:01 Dose: 40 mg Documented By: CARLOS Buspirone HCl (Buspirone 5 Mg Tab) 5 mg PO BID MAGGIE Stop: 12/24/23 08:59 Last Admin: 11/24/23 21:01 Dose: 5 mg Documented By: Admin: 11/24/23 10:15 Dose: 5 mg Documented By: DAMIAN Sodium Chloride (Nss) 1,000 mls @ 125 mls/hr IV .Q8H MAGGIE Stop: 12/24/23 08:54 Last Admin: 11/24/23 19:54 Dose: 200 mls/hr Documented By: Infusion: 11/24/23 19:53 Dose: Infused Documented By: Admin: 11/24/23 14:55 Dose: 200 mls/hr Documented By: Infusion: 11/24/23 14:23 Dose: Infused Documented By: Admin: 11/24/23 09:23 Dose: 200 mls/hr Documented By: DAMIAN Pantoprazole Sodium 40 mg/ (Syringe) 10 mls @ 5 mls/min IV BID MAGGIE Stop: 12/24/23 08:59 Last Admin: 11/24/23 21:01 Dose: 5 mls/min Documented By: Admin: 11/24/23 10:16 Dose: 5 mls/min Documented By: DAMIAN Insulin Aspart (Insulin Aspart Per Unit Charge) 0 units SC Q6H [facility] Stop: 12/24/23 08:54 Last Admin: 11/24/23 18:06 Dose: Not Given Documented By: Admin: 11/24/23 12:25 Dose: Not Given Documented By: DAMIAN Co-signed By: [id number] Admin: 11/24/23 10:13 Dose: 2 units Documented By: DAMIAN Co-signed By: [id number] Insulin Glargine (Lantus Per Unit Charge) 0 units SC BID [facility]; Protocol Stop: 12/24/23 20:59 Last Admin: 11/24/23 19:32 Dose: Not Given Documented By: CARLOS Labetalol HCl (Labetalol Hcl Iv 5 Mg/Ml 20ml) 10 mg IV Q4H PRN PRN Reason: Hypertension Stop: 12/24/23 05:57 Last Admin: 11/24/23 06:31 Dose: 10 mg Documented By: JOANN Co-signed By: MICHAEL Losartan Potassium (Losartan Potassium 50 Mg Tab) 50 mg PO DAILY [facility] Stop: 12/24/23 08:59 Last Admin: 11/24/23 10:15 Dose: 50 mg Documented By: DAMIAN Magnesium Oxide (Magnesium Oxide 400 Mg Tab) 400 mg PO BID [facility] Stop: 12/24/23 09:44 Last Admin: 11/24/23 21:01 Dose: 400 mg Documented By: Admin: 11/24/23 11:06 Dose: 400 mg Documented By: DAMIAN Miscellaneous (Remove Nicoderm Patch) 1 each N/A DAILY@0859 [facility] Stop: 12/24/23 08:58 Last Admin: 11/24/23 10:13 Dose: 1 each Documented By: DAMIAN Nicotine (Nicotine 21 Mg/24 Hr Tdsy) 21 mg TD DAILY [facility] Stop: 12/24/23 08:59 Last Admin: 11/24/23 10:13 Dose: 21 mg Documented By: DAMIAN Ondansetron HCl (Ondansetron Inj 2 Mg/Ml 2 Ml Vial) 4 mg IV Q6H PRN PRN Reason: Nausea Stop: 12/24/23 08:54 Last Admin: 11/24/23 21:01 Dose: 4 mg Documented By: CARLOS Paroxetine HCl (Paroxetine Hcl 10 Mg Tab) 30 mg PO DAILY [facility] Stop: 12/24/23 08:59 Last Admin: 11/24/23 10:15 Dose: 30 mg Documented By: DAMIAN Discontinued Medications Sodium Chloride (Nss) 1,000 mls @ 999 mls/hr IV .Q1H1M [facility]IE Stop: 11/24/23 04:51 Last Infusion: 11/24/23 05:23 Dose: Infused Documented By: Admin: 11/24/23 03:56 Dose: 999 mls/hr Documented By: Infusion: 11/24/23 03:56 Dose: Infused Documented By: Admin: 11/24/23 03:00 Dose: 999 mls/hr Documented By: JOANN Magnesium Sulfate/Dextrose (Magnesium Sulfate / D5w) 1 gm in 100 mls @ 100 mls/hr IV NOW STA Stop: 11/24/23 04:42 Last Infusion: 11/24/23 05:02 Dose: Infused Documented By: Admin: 11/24/23 03:55 Dose: 100 mls/hr Documented By: JOANN Magnesium Sulfate/Dextrose (Magnesium Sulfate / D5w) 1 gm in 100 mls @ 50 mls/hr IV Q2H MAGGIE Stop: 11/24/23 09:44 Last Infusion: 11/24/23 10:28 Dose: Infused Documented By: Admin: 11/24/23 07:57 Dose: 50 mls/hr Documented By: Infusion: 11/24/23 07:56 Dose: Infused Documented By: Admin: 11/24/23 05:56 Dose: 50 mls/hr Documented By: JOANN Sodium Chloride (Nss) 1,000 mls @ 999 mls/hr IV .Q1H1M [facility]IE Stop: 11/24/23 06:30 Last Infusion: 11/24/23 06:57 Dose: Infused Documented By: Admin: 11/24/23 05:57 Dose: 999 mls/hr Documented By: JOANN Ioversol (Optiray 320 500ml) 84 ml IV ONCE ONE Stop: 11/24/23 10:27 Last Admin: 11/24/23 10:27 Dose: 84 ml Documented By: CHRISTIAN Ondansetron HCl (Ondansetron Inj 2 Mg/Ml 2 Ml Vial) 4 mg IV NOW STA Stop: 11/24/23 03:53 Last Admin: 11/24/23 03:55 Dose: 4 mg Documented By: JOANN Potassium Chloride (Potassium Chloride Crtab 20 Meq Tabcr) 40 meq PO NOW STA Stop: 11/24/23 21:54 Last Admin: 11/24/23 23:05 Dose: 40 meq Documented By: CARLOS Medical Decision Making Differential Diagnosis Differential diagnosis: Etiologies such as gastroenteritis, food borne illness, infections, appendicitis, diverticulitis, inflammatory bowel disease, obstruction, GI bleed, biliary pathology, cardiac process, intracranial process, as well as others were entertained. Laboratory Data 11/24/23 10:41 11/24/23 14:45 Lab Results 11/24/23 11/24/23 11/24/23 Range/Units 02:57 03:00 03:46 WBC 14.99 H (4.8-10.8) K/ul RBC 4.81 (4.70-6.10) M/uL Hgb 15.6 (14.0-18.0) g/dl Hct 43.2 (42.0-52.0) % MCV 89.8 (80.0-100.0) fL MCH 32.4 (25.0-34.0) pg MCHC 36.1 H (32.0-36.0) g/dL RDW Std Deviation 37.8 (36.4-46.3) fL RDW Coeff of Asad 11.7 (11.5-14.5) % Plt Count 307 (130-400) K/uL MPV 8.3 L (9.4-12.4) fL Immature Gran % (Auto) 1.1 % Neut % (Auto) 72.0 % Lymph % (Auto) 18.3 % [place] % (Auto) 7.9 % Eos % (Auto) 0.3 % Baso % (Auto) 0.4 % Neut # (Auto) 10.79 H (1.40-6.50) K/uL Lymph # (Auto) 2.75 (1.20-3.40) K/uL [place] # (Auto) 1.18 H (0.11-0.59) K/uL Eos # (Auto) 0.05 (0.00-0.50) K/uL Baso # (Auto) 0.06 (0.00-0.20) K/uL Immature Gran # (Auto) 0.16 (0.01-0.20) K/uL VBG pH 7.49 H (7.36-7.41) VBG pCO2 25 L (38-50) mmHg VBG pO2 24 mmHg VBG HCO3 19 mmol/L VBG O2 Saturation < 60.0 % VBG Base Excess -2.6 mEq/L Sodium 135 L (136-145) mmol/L Potassium 3.6 (3.5-5.1) mmol/L Chloride 95 L (98-107) mmol/L Carbon Dioxide 19 L (21-32) mmol/L Anion Gap 21 H (3-11) BUN 21 (6-23) mg/dl Creatinine 1.08 (0.6-1.4) mg/dl Est Cr Clr Drug Dosing Not Reportable Est GFR ( Amer) 88.5 ml/min Est GFR (Non-Af Amer) 76.3 ml/min BUN/Creatinine Ratio 19.4 (10-20) Glucose 169 H (70-99(Fasting)) mg/dl POC Glucose 184 H (70-99) mg/dl Calcium 10.7 H (8.6-10.3) mg/dl Magnesium 1.2 L (1.7-2.4) mg/dl Total Bilirubin 0.9 (0.2-1.0) mg/dl AST 22 (13-39) U/L ALT 18 (7-52) U/L Alkaline Phosphatase 70 (34-104) U/L Troponin I High Sens 9.8 (0-20) pg/ml Total Protein 7.6 (6.0-8.3) gm/dl Albumin 4.7 (3.4-5.0) gm/dl Globulin 2.9 (2.5-4.0) gm/dl Albumin/Globulin Ratio 1.6 (0.9-2) Lipase 110 H (11-82) U/L Urine Color Urine Appearance (Clear) Urine pH (4.5-7.5) Ur Specific [place] (1.000-1.030) Urine Protein (Negative) Urine Glucose (UA) (Negative) Urine Ketones (Negative) Urine Blood (Negative) Urine Nitrite (Negative) Urine Bilirubin (Negative) Urine Urobilinogen (Negative) Ur Leukocyte Esterase (Negative) Urine WBC (Auto) (0-5) /hpf Urine RBC (Auto) (0-4) /hpf U Hyaline Cast (Auto) (0-5) /lpf U Epithel Cells (Auto) (0-5) /lpf Urine Bacteria (Auto) (Negative) Ethyl Alcohol mg/dL < 10.0 (<10.0) mg/dl 11/24/23 Range/Units 04:05 WBC (4.8-10.8) K/ul RBC (4.70-6.10) M/uL Hgb (14.0-18.0) g/dl Hct (42.0-52.0) % MCV (80.0-100.0) fL MCH (25.0-34.0) pg MCHC (32.0-36.0) g/dL RDW Std Deviation (36.4-46.3) fL RDW Coeff of Asad (11.5-14.5) % Plt Count (130-400) K/uL MPV (9.4-12.4) fL Immature Gran % (Auto) % Neut % (Auto) % Lymph % (Auto) % [place] % (Auto) % Eos % (Auto) % Baso % (Auto) % Neut # (Auto) (1.40-6.50) K/uL Lymph # (Auto) (1.20-3.40) K/uL [place] # (Auto) (0.11-0.59) K/uL Eos # (Auto) (0.00-0.50) K/uL Baso # (Auto) (0.00-0.20) K/uL Immature Gran # (Auto) (0.01-0.20) K/uL VBG pH (7.36-7.41) VBG pCO2 (38-50) mmHg VBG pO2 mmHg VBG HCO3 mmol/L VBG O2 Saturation % VBG Base Excess mEq/L Sodium (136-145) mmol/L Potassium (3.5-5.1) mmol/L Chloride (98-107) mmol/L Carbon Dioxide (21-32) mmol/L Anion Gap (3-11) BUN (6-23) mg/dl Creatinine (0.6-1.4) mg/dl Est Cr Clr Drug Dosing Est GFR ( Amer) ml/min Est GFR (Non-Af Amer) ml/min BUN/Creatinine Ratio (10-20) Glucose (70-99(Fasting)) mg/dl POC Glucose (70-99) mg/dl Calcium (8.6-10.3) mg/dl Magnesium (1.7-2.4) mg/dl Total Bilirubin (0.2-1.0) mg/dl AST (13-39) U/L ALT (7-52) U/L Alkaline Phosphatase (34-104) U/L Troponin I High Sens (0-20) pg/ml Total Protein (6.0-8.3) gm/dl Albumin (3.4-5.0) gm/dl Globulin (2.5-4.0) gm/dl Albumin/Globulin Ratio (0.9-2) Lipase (11-82) U/L Urine Color Yellow Urine Appearance Clear (Clear) Urine pH 6.5 (4.5-7.5) Ur Specific [place] 1.010 (1.000-1.030) Urine Protein Negative (Negative) Urine Glucose (UA) Negative (Negative) Urine Ketones 3+ H (Negative) Urine Blood Trace H (Negative) Urine Nitrite Negative (Negative) Urine Bilirubin Negative (Negative) Urine Urobilinogen Negative (Negative) Ur Leukocyte Esterase Negative (Negative) Urine WBC (Auto) 0 (0-5) /hpf Urine RBC (Auto) 0-4 (0-4) /hpf U Hyaline Cast (Auto) 0 (0-5) /lpf U Epithel Cells (Auto) 0-5 (0-5) /lpf Urine Bacteria (Auto) Negative (Negative) Ethyl Alcohol mg/dL (<10.0) mg/dl ECG Data Attestation: I personally reviewed and interpreted this ECG as follows: Indication: + vomiting Additional Comments: Sinus tachycardia @117 bpm Possible Left atrial enlargement Nonspecific ST and T wave abnormality Abnormal ECG When compared with ECG of 07-JUN-2023 10:22, T wave inversion more evident in Lateral leads MDM Narrative Physical exam and history were performed. Nursing notes, EMR, and Medication List were personally reviewed. No social concerns were identified as barriers to patients care. Patient appears to have nausea and vomiting bring him to the ER. IV access was established and labs were obtained. He was hydrated with normal saline and given IV Zofran here in the ER. Patient's blood work is as above and was reviewed. He does not have a significantly elevated white blood cell count, gross anemia, bandemia, or significant electrolyte imbalance. Anion gap is 21. BUN and creatinine are preserved. Glucose is 169. He does not appear acidotic on VBG. Magnesium is markedly low at 1.2 and this was repleted through his IV. Overall the patient is feeling somewhat improved after fluids and treatment here in the ER. He does remain tachycardic. He has not had persistent vomiting here in the ER, however I do not feel he is well for discharge at this time. Case was discussed with the on-call hospitalist team who agreed to evaluate the patient here in the ER. Please see their dictation for further patient course, plan, disposition. The chart was completed utilizing [employer] Speech Voice Recognition Software. Grammatical errors, random word insertions, pronoun errors, and incomplete sentences are an occasional consequence of this system due to software limitations, ambient noise, and hardware issues. Any formal questions or concerns about the content, text, or information contained within the body of this dictation should be directly addressed to the provider for clarification. . Impression & Plan Hypomagnesemia, Diabetes mellitus type 2 in nonobese, Nausea & vomiting Discharge Plan Visit Data Chief Complaint: Vomiting Stated Complaint: VOMITTING ED Provider: Nikki Loyd ED Midlevel Provider: Manuel Harris Discharge Problem: Hypomagnesemia, Diabetes mellitus type 2 in nonobese, Nausea & vomiting Patient Disposition: Admitted As Inpatient Discharge Instructions Interventions: ED Discharge Assessment Last Done: 11/24/23 08:08
[2023-11-24 23:43] LABS: BUN Creatinine Ratio 10.3 (10-20); Calcium 8.7 mg/dl (8.6-10.3); Creatinine Clr Calc Pharmacy 90.1 ml/min; Est GFR (African American) 111.8 ml/min; Est GFR (Non-African American) 96.5 ml/min; Magnesium 1.5 mg/dl (1.7-2.4); Phosphorus 1.6 mg/dl (2.5-4.9); Potassium 3.2 mmol/L (3.5-5.1)
--- NOTE | 2023-11-25 05:39 | Hospitalist Progress Note ---
Date of Service November 25, 2023 Assessment & Plan (1) Nausea & vomiting: Plan: 58 yo M w/ type 2 diabetes, hypertension, Warthin's tumor, BPH, bipolar disorder, history of alcoholism but patient states not drinking since 2019 presents with severe abdominal pain associated with nausea and several episodes of vomiting since last Tuesday. Last Tuesday started taking Ozempic first dose. Also on metformin. He was on Jardiance but he stopped on last Tuesday before he started taking Ozempic. He had several episodes of vomitings since then. He states couple of episodes were coffee-ground but most of them are bile and last episode of vomiting was bilious. He had normal bowel movement yesterday. Denies any blood in stools or black stools. Rates abdominal pain 9 / 10 in severity. He had mild chest pain in the middle of the chest. Has shortness of breath because of pain. Has some cough. No fevers. Has headache. Has blurred vision. Has runny nose and sore throat. Nausea, vomiting and abdominal pain possibly secondary to ozempic States started after taking Ozempic last Tuesday CT abdomen pelvis - No acute infectious or inflammatory findings are identified in the abdomen or pelvis. N.p.o.-> clear liquids and tolerating IV fluids IV Dilaudid as needed IV antiemetics as needed IV Protonix 40 mg twice daily Patient had anion gap and CO2 19 on admission but VBG pH wnl Was on Jardiance until last Tuesday. 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 to closely monitor Questionable coffee-ground emesis Hemoglobin stable Patient IV Protonix 40 minutes twice daily for now stool Hemoccult - negative Close monitor Hypomagnesia replete and monitor chest pain? serial CE - negative Echo -normal LV wall thickness. LV wall motion is normal. LV systolic function is normal. LVEF about 55%. Diastolic dysfunction, grade 2. Tobacco abuse On nicotine patch Diabetes current A1c 9.0% Hold metformin Sliding scale Glycemic pharmacy, museum educator, as above Closely monitor Hypertension Elevated Continue home losartan IV labetalol as needed. Close monitor Hyperlipidemia Statin Mood disorder Continue home meds Right Warthin tumor under observation with ENT currently DVT prophylaxis SCDs for now for questionable GI bleed Disposition Med/tele Full code Admission and Anticipated Discharge Date Admission Date: November 24, 2023 Subjective Pt seen in follow up of abd. pain, n/v recently started on ozempic, previously on jardiance Feeling better than when he came first to the hospital. Still with some occasional abdominal pain, nausea. However he also wishes to advance his diet. No fevers chills chest pain shortness of breath. Seen museum educator, discussed moving forward with insulin. Patient does not really wish to be on any other medications for diabetes. Review of Systems Review of Systems: All systems reviewed & are unremarkable except as noted in Subjective Physical Exam Physical Exam: General- Not in distress Head- atraumatic Eyes- PERRL. ENT- oropharynx clear Neck- supple, no JVD. Lungs- clear to auscultation no wheezing or crackles Heart- regular rhythm; no murmur, no gallop. Abdomen- normal bowel sounds, soft, mild diffuse discomfort, no guarding or rigidity or distension. Extremities- no pretibial edema, no erythema seen. Neuro- alert, oriented x 3; PERRL, no facial palsy; no dysarthria; moves extremities. Skin- warm & dry Results & Data Results & Data Vital Signs (Past 12 Hours) Vital Signs Temp Pulse Pulse Resp BP Pulse Ox O2 Del Method 11/25/23 02:58 36.5 C 99 H 18 156/89 H 96 Room Air 11/24/23 22:54 99 H 11/24/23 22:39 36.8 C 98 H 18 164/92 H 99 Room Air Laboratory Results 11/25/23 11/25/23 11/24/23 Range/Units 06:09 05:58 22:33 WBC 10.34 (4.8-10.8) K/ul RBC 4.11 L (4.70-6.10) M/uL Hgb 13.1 L (14.0-18.0) g/dl Hct 36.8 L (42.0-52.0) % MCV 89.5 (80.0-100.0) fL MCH 31.9 (25.0-34.0) pg MCHC 35.6 (32.0-36.0) g/dL RDW Std Deviation 38.0 (36.4-46.3) fL RDW Coeff of Asad 11.9 (11.5-14.5) % Plt Count 255 (130-400) K/uL MPV 7.9 L (9.4-12.4) fL Immature Gran % (Auto) % Neut % (Auto) % Lymph % (Auto) % Norman % (Auto) % Eos % (Auto) % Baso % (Auto) % Neut # (Auto) (1.40-6.50) K/uL Lymph # (Auto) (1.20-3.40) K/uL Norman # (Auto) (0.11-0.59) K/uL Eos # (Auto) (0.00-0.50) K/uL Baso # (Auto) (0.00-0.20) K/uL Immature Gran # (Auto) (0.01-0.20) K/uL Sodium 138 135 L (136-145) mmol/L Potassium 3.8 3.2 L (3.5-5.1) mmol/L Chloride 108 H 103 (98-107) mmol/L Carbon Dioxide 20 L 19 L (21-32) mmol/L Anion Gap 10 13 H (3-11) BUN 9 9 (6-23) mg/dl Creatinine 0.83 0.87 (0.6-1.4) mg/dl Est Cr Clr Drug Dosing 94.5 90.1 ml/min Est GFR ( Amer) 114.0 111.8 ml/min Est GFR (Non-Af Amer) 98.4 96.5 ml/min BUN/Creatinine Ratio 10.8 10.3 (10-20) Glucose 103 H 157 H (70-99(Fasting)) mg/dl POC Glucose 114 H (70-99) mg/dl Estimat Average Glucose mg/dl Hemoglobin A1c (4.5-5.6) % Calcium 8.5 L 8.7 (8.6-10.3) mg/dl Phosphorus 3.0 D 1.6 L (2.5-4.9) mg/dl Magnesium 1.7 1.5 L (1.7-2.4) mg/dl Total Bilirubin (0.2-1.0) mg/dl AST (13-39) U/L ALT (7-52) U/L Alkaline Phosphatase (34-104) U/L Troponin I High Sens (0-20) pg/ml Total Protein (6.0-8.3) gm/dl Albumin (3.4-5.0) gm/dl Globulin (2.5-4.0) gm/dl Albumin/Globulin Ratio (0.9-2) 11/24/23 11/24/23 11/24/23 Range/Units 17:58 14:45 12:08 WBC (4.8-10.8) K/ul RBC (4.70-6.10) M/uL Hgb (14.0-18.0) g/dl Hct (42.0-52.0) % MCV (80.0-100.0) fL MCH (25.0-34.0) pg MCHC (32.0-36.0) g/dL RDW Std Deviation (36.4-46.3) fL RDW Coeff of Asad (11.5-14.5) % Plt Count (130-400) K/uL MPV (9.4-12.4) fL Immature Gran % (Auto) % Neut % (Auto) % Lymph % (Auto) % Norman % (Auto) % Eos % (Auto) % Baso % (Auto) % Neut # (Auto) (1.40-6.50) K/uL Lymph # (Auto) (1.20-3.40) K/uL Norman # (Auto) (0.11-0.59) K/uL Eos # (Auto) (0.00-0.50) K/uL Baso # (Auto) (0.00-0.20) K/uL Immature Gran # (Auto) (0.01-0.20) K/uL Sodium 138 (136-145) mmol/L Potassium 3.3 L (3.5-5.1) mmol/L Chloride 105 (98-107) mmol/L Carbon Dioxide 18 L (21-32) mmol/L Anion Gap 15 H (3-11) BUN 12 (6-23) mg/dl Creatinine 0.91 (0.6-1.4) mg/dl Est Cr Clr Drug Dosing 86.2 ml/min Est GFR ( Amer) 108.8 ml/min Est GFR (Non-Af Amer) 93.9 ml/min BUN/Creatinine Ratio 13.2 (10-20) Glucose 99 (70-99(Fasting)) mg/dl POC Glucose 106 H 110 H (70-99) mg/dl Estimat Average Glucose mg/dl Hemoglobin A1c (4.5-5.6) % Calcium 8.6 (8.6-10.3) mg/dl Phosphorus 2.2 L (2.5-4.9) mg/dl Magnesium 1.8 (1.7-2.4) mg/dl Total Bilirubin (0.2-1.0) mg/dl AST (13-39) U/L ALT (7-52) U/L Alkaline Phosphatase (34-104) U/L Troponin I High Sens 16.3 (0-20) pg/ml Total Protein (6.0-8.3) gm/dl Albumin (3.4-5.0) gm/dl Globulin (2.5-4.0) gm/dl Albumin/Globulin Ratio (0.9-2) 11/24/23 11/24/23 Range/Units 10:41 10:04 WBC 10.94 H (4.8-10.8) K/ul RBC 4.07 L (4.70-6.10) M/uL Hgb 13.3 L (14.0-18.0) g/dl Hct 36.3 L (42.0-52.0) % MCV 89.2 (80.0-100.0) fL MCH 32.7 (25.0-34.0) pg MCHC 36.6 H (32.0-36.0) g/dL RDW Std Deviation 37.1 (36.4-46.3) fL RDW Coeff of Asad 11.7 (11.5-14.5) % Plt Count 268 (130-400) K/uL MPV 8.0 L (9.4-12.4) fL Immature Gran % (Auto) 1.0 % Neut % (Auto) 77.6 % Lymph % (Auto) 13.7 % Norman % (Auto) 7.5 % Eos % (Auto) 0.0 % Baso % (Auto) 0.2 % Neut # (Auto) 8.49 H (1.40-6.50) K/uL Lymph # (Auto) 1.50 (1.20-3.40) K/uL Norman # (Auto) 0.82 H (0.11-0.59) K/uL Eos # (Auto) 0.00 (0.00-0.50) K/uL Baso # (Auto) 0.02 (0.00-0.20) K/uL Immature Gran # (Auto) 0.11 (0.01-0.20) K/uL Sodium 134 L (136-145) mmol/L Potassium 3.3 L (3.5-5.1) mmol/L Chloride 101 (98-107) mmol/L Carbon Dioxide 23 (21-32) mmol/L Anion Gap 10 (3-11) BUN 15 (6-23) mg/dl Creatinine 0.90 (0.6-1.4) mg/dl Est Cr Clr Drug Dosing 87.1 ml/min Est GFR ( Amer) 110.3 ml/min Est GFR (Non-Af Amer) 95.1 ml/min BUN/Creatinine Ratio 16.7 (10-20) Glucose 167 H (70-99(Fasting)) mg/dl POC Glucose 176 H (70-99) mg/dl Estimat Average Glucose 212 mg/dl Hemoglobin A1c 9.0 H (4.5-5.6) % Calcium 8.8 (8.6-10.3) mg/dl Phosphorus 2.8 (2.5-4.9) mg/dl Magnesium 1.9 (1.7-2.4) mg/dl Total Bilirubin 0.7 (0.2-1.0) mg/dl AST 17 (13-39) U/L ALT 14 (7-52) U/L Alkaline Phosphatase 58 (34-104) U/L Troponin I High Sens 12.6 (0-20) pg/ml Total Protein 6.3 (6.0-8.3) gm/dl Albumin 4.1 (3.4-5.0) gm/dl Globulin 2.2 L (2.5-4.0) gm/dl Albumin/Globulin Ratio 1.9 (0.9-2) Medications Administered Current Inpatient Medications Acetaminophen (Acetaminophen 325 Mg Tab) 650 mg PO Q4H PRN PRN Reason: Pain or Fever Stop: 12/24/23 08:54 Aspirin (Aspirin 81 Mg Ectab) 81 mg PO DAILY [facility] Stop: 12/24/23 08:59 Last Admin: 11/25/23 07:46 Dose: 81 mg Atorvastatin Calcium (Atorvastatin 40 Mg Tab) 40 mg PO HS [facility] Stop: 12/24/23 20:59 Last Admin: 11/24/23 21:01 Dose: 40 mg Buspirone HCl (Buspirone 5 Mg Tab) 5 mg PO BID [facility] Stop: 12/24/23 08:59 Last Admin: 11/25/23 07:44 Dose: 5 mg Dextrose (Dextrose 50% 50 Ml Syringe) 25 - 50 ml IV UD PRN; Protocol PRN Reason: Hypoglycemia Protocol Stop: 12/24/23 08:54 Glucagon (Glucagon For Inj 1 Mg Vial) 1 mg SQ UD PRN; Protocol PRN Reason: Hypoglycemia Protocol Stop: 12/24/23 08:54 Glucose (Glucose 10 Tab/Tube) 4 - 8 tab PO UD PRN; Protocol PRN Reason: Hypoglycemia Treatment Stop: 12/24/23 08:54 Glucose (Glucose 40% Gel 15 Gm Tube) 15 - 30 gm PO UD PRN; Protocol PRN Reason: Hypoglycemia Protocol Stop: 12/24/23 08:54 Hydromorphone HCl (Hydromorphone Inj 0.5 Mg/0.5 Ml Syr) 0.5 mg IV Q4H PRN PRN Reason: Pain Stop: 12/08/23 05:27 Sodium Chloride (Nss) 1,000 mls @ 80 mls/hr IV .[id number] [facility] Stop: 12/24/23 08:54 Last Admin: 11/25/23 04:32 Dose: 125 mls/hr Pantoprazole Sodium 40 mg/ (Syringe) 10 mls @ 5 mls/min IV BID [facility] Stop: 12/24/23 08:59 Last Admin: 11/25/23 07:47 Dose: 5 mls/min Magnesium Sulfate/Dextrose (Magnesium Sulfate / D5w) 1 gm in 100 mls @ 50 mls/hr IV ONE ONE Stop: 11/25/23 09:06 Last Admin: 11/25/23 07:42 Dose: 50 mls/hr Insulin Aspart (Insulin Aspart Per Unit Charge) 0 units SC Q6H [facility] Stop: 12/24/23 08:54 Last Admin: 11/25/23 06:11 Dose: Not Given Insulin Glargine (Lantus Per Unit Charge) 0 units SC BID [facility]; Protocol Stop: 12/24/23 20:59 Last Admin: 11/25/23 08:26 Dose: Not Given Labetalol HCl (Labetalol Hcl Iv 5 Mg/Ml 20ml) 10 mg IV Q4H PRN PRN Reason: Hypertension Stop: 12/24/23 05:57 Last Admin: 11/24/23 06:31 Dose: 10 mg Losartan Potassium (Losartan Potassium 50 Mg Tab) 50 mg PO DAILY [facility] Stop: 12/24/23 08:59 Last Admin: 11/25/23 07:45 Dose: 50 mg Magnesium Oxide (Magnesium Oxide 400 Mg Tab) 400 mg PO BID [facility] Stop: 12/24/23 09:44 Last Admin: 11/25/23 07:45 Dose: 400 mg Miscellaneous (Remove Nicoderm Patch) 1 each N/A DAILY@0859 [facility] Stop: 12/24/23 08:58 Last Admin: 11/25/23 07:42 Dose: 1 each Miscellaneous (Carbohydrates For Hypoglycemia ) 15 - 30 gm PO UD PRN PRN Reason: Hypoglycemia Protocol Stop: 12/24/23 08:54 Miscellaneous Information (Pharmacy Glycemic Mgmt Consult) 1 each N/A UD PRN; Protocol PRN Reason: Consult Stop: 12/24/23 08:54 Nicotine (Nicotine 21 Mg/24 Hr Tdsy) 21 mg TD DAILY [facility] Stop: 12/24/23 08:59 Last Admin: 11/25/23 07:46 Dose: 21 mg Nitroglycerin (Nitroglycerin Sl 0.4 Mg/Tab Tab) 0.4 mg SL Q5M PRN PRN Reason: Chest Pain Stop: 12/24/23 08:54 Ondansetron HCl (Ondansetron Inj 2 Mg/Ml 2 Ml Vial) 4 mg IV Q6H PRN PRN Reason: Nausea Stop: 12/24/23 08:54 Last Admin: 11/25/23 07:07 Dose: 4 mg Paroxetine HCl (Paroxetine Hcl 10 Mg Tab) 30 mg PO DAILY [facility] Stop: 12/24/23 08:59 Last Admin: 11/25/23 07:45 Dose: 30 mg Potassium Phosphate (Pot Phosphate Monobasic W/ Sod Tab) 1 tab PO QID [facility] Stop: 12/25/23 05:39 Last Admin: 11/25/23 07:44 Dose: 1 tab
[2023-11-25] MEDS: POT PHOSPHATE MONOBASIC W/ SOD TAB PO SCH (06:10)
[2023-11-25] MEDS: POTASSIUM CHLORIDE CRTAB 20 MEQ TABCR PO STA ×2 (06:10→21:17)
[2023-11-25 06:32] LABS: Hematocrit (blood only) 36.8 % (42.0-52.0); Hemoglobin 13.1 g/dl (14.0-18.0); Mean Corpuscular Hemoglobin 31.9 pg (25.0-34.0); Mean Corpuscular Hgb Conc 35.6 g/dL (32.0-36.0); Mean Corpuscular Volume 89.5 fL (80.0-100.0); Mean Platelet Volume 7.9 fL (9.4-12.4); Platelet Count 255 K/uL (130-400); RDW Coefficient of Variation 11.9 % (11.5-14.5); Red Blood Count 4.11 M/uL (4.70-6.10); White Blood Count 10.34 K/ul (4.8-10.8)
[2023-11-25 06:54] LABS: BUN Creatinine Ratio 10.8 (10-20); Calcium 8.5 mg/dl (8.6-10.3); Creatinine Clr Calc Pharmacy 94.5 ml/min; Est GFR (Non-African American) 98.4 ml/min; Magnesium 1.7 mg/dl (1.7-2.4); Potassium 3.8 mmol/L (3.5-5.1)
[2023-11-25] MEDS: MAGNESIUM SULFATE / D5W 1 GM/100 ML BAG IV ONE (07:42)
--- NOTE | 2023-11-25 10:50 | Pharmacy Report ---
Pharmacy Glycemic Short Note 2 - Date of Service November 25, 2023 - Glycemic Short BSG Results (Last 24 hours): 11/24/23 11/24/23 11/24/23 10:41 12:08 14:45 Glucose 167 H 99 POC Glucose 110 H 11/24/23 11/24/23 11/25/23 17:58 22:33 05:58 Glucose 157 H 103 H POC Glucose 106 H 11/25/23 06:09 Glucose POC Glucose 114 H OUTPATIENT ANTIDIABETIC REGIMEN: * Metformin ER 2000mg daily * Ozempic 0.25mg SQ Qwk * HbA1c 9.0% (11/24/23), 8.0% (03/28/23) ASSESSMENT: 11/25: * Román recieved 3 units of bolus insulin yesterday * Fasting BSG with goal range this AM, although patient is still NPO, will continue small Lantus scale at this time. * Diet advanced to clear liquids, no other glycemic stressors noted * Novolog appears to be correcting, unable to assess carbohydrate ratio due to limited PO intake. Will continue to monitor. 11/24: * Román is a 58 YOM admitted for severe abdominal pain and nausea/vomitting (some coffee ground) since starting Ozempic last Tuesday. Pharmacy has been consulted for glycemic management. * Fasting BSG this AM slightly above goal range, currently NPO, will hold if continuing NPO and add a weight based stress of 1 basal dose if diet is ordered. * He is currently receiving IV fluids w/o dextrose, no other glycemic stressors noted at this time. * Novolog initiated at a weight based stress of 2, appears to be correcting adequately at this time. PLAN FOR INPATIENT GLYCEMIC CONTROL: * Hold outpatient oral diabetes medications * Basal insulin * Lantus 0-5 units SQ BID (5 units if BSG >140mg/dL) * Bolus insulin * NovoLog per scale ACHS or Q6hrs while NPO * Goal Range: Low 110 mg/dL - High 140 mg/dL * Correction Factor: 35 mg/dL/unit * Nutritional / Prandial insulin per carb ratio of 1 unit per 12 grams CHO consumed
[2023-11-25] MEDS: INSULIN ASPART PER UNIT CHARGE SC SCH (12:43)
[2023-11-25 19:03] LABS: BUN Creatinine Ratio 9.5 (10-20); Calcium 8.4 mg/dl (8.6-10.3); Creatinine Clr Calc Pharmacy 93.3 ml/min; Est GFR (African American) 113.4 ml/min; Est GFR (Non-African American) 97.9 ml/min; Magnesium 1.8 mg/dl (1.7-2.4); Phosphorus 2.1 mg/dl (2.5-4.9); Potassium 3.4 mmol/L (3.5-5.1)
[2023-11-26 07:19] LABS: Calcium 8.7 mg/dl (8.6-10.3); Magnesium 1.7 mg/dl (1.7-2.4); Potassium 3.8 mmol/L (3.5-5.1)
[2023-11-26 07:25] LABS: BUN Creatinine Ratio 9.4 (10-20); Creatinine Clr Calc Pharmacy 87.8 ml/min; Est GFR (African American) 112.9 ml/min; Est GFR (Non-African American) 97.4 ml/min; Phosphorus 2.8 mg/dl (2.5-4.9)
[2023-11-26] MEDS: LORazepam 0.5 MG TAB SL STA (10:38)
--- NOTE | 2023-11-26 12:25 | Hospitalist Progress Note ---
Date of Service November 26, 2023 Assessment & Plan (1) Nausea & vomiting: Plan: 58 yo M w/ type 2 diabetes, hypertension, Warthin's tumor, BPH, bipolar disorder, history of alcoholism but patient states not drinking since 2019 presents with severe abdominal pain associated with nausea and several episodes of vomiting since last Tuesday. Last Tuesday started taking Ozempic first dose. Also on metformin. He was on Jardiance but he stopped on last Tuesday before he started taking Ozempic. He had several episodes of vomitings since then. He states couple of episodes were coffee-ground but most of them are bile and last episode of vomiting was bilious. He had normal bowel movement yesterday. Denies any blood in stools or black stools. Rates abdominal pain 9 / 10 in severity. He had mild chest pain in the middle of the chest. Has shortness of breath because of pain. Has some cough. No fevers. Has headache. Has blurred vision. Has runny nose and sore throat. Nausea, vomiting and abdominal pain possibly secondary to ozempic States started after taking Ozempic last Tuesday CT abdomen pelvis - No acute infectious or inflammatory findings are identified in the abdomen or pelvis. N.p.o.-> soft diet and tolerating IV fluids - can stop now IV Dilaudid as needed IV antiemetics as needed IV Protonix 40 mg - switch to PO Patient had anion gap and CO2 19 on admission but VBG pH wnl Was on Jardiance until last Tuesday. 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 to closely monitor Questionable coffee-ground emesis Hemoglobin stable, current Hgb > 13 Patient IV Protonix 40 minutes twice daily -> switch to PO stool Hemoccult - negative Close monitor Hypomagnesia replete and monitor chest pain? serial CE - negative Echo -normal LV wall thickness. LV wall motion is normal. LV systolic function is normal. LVEF about 55%. Diastolic dysfunction, grade 2. Tobacco abuse On nicotine patch Diabetes current A1c 9.0% Hold metformin Sliding scale Glycemic pharmacy, wellness educator, as above Closely monitor Hypertension Elevated Continue home losartan IV labetalol as needed. Close monitor Hyperlipidemia Statin Mood disorder Continue home meds Right Seb tumor under observation with ENT currently DVT prophylaxis SCDs for now for questionable GI bleed Disposition Med/tele Full code Admission and Anticipated Discharge Date Admission Date: November 24, 2023 Subjective Pt seen in follow up of abd. pain, n/v recently started on ozempic, previously on jardiance Feeling better and tolerating diet. Reports headache. No fevers chills chest pain shortness of breath. Seen wellness educator, discussed moving forward with insulin. Patient does not really wish to be on any other medications for diabetes. Review of Systems Review of Systems: All systems reviewed & are unremarkable except as noted in Subjective Physical Exam Physical Exam: General- Not in distress Head- atraumatic Eyes- PERRL. ENT- oropharynx clear Neck- supple, no JVD. Lungs- clear to auscultation no wheezing or crackles Heart- regular rhythm; no murmur, no gallop. Abdomen- normal bowel sounds, soft, mild diffuse discomfort, no guarding or rigidity or distension. Extremities- no pretibial edema, no erythema seen. Neuro- alert, oriented x 3; PERRL, no facial palsy; no dysarthria; moves extremities. Skin- warm & dry Results & Data Results & Data Vital Signs (Past 12 Hours) Vital Signs Temp Pulse Pulse Resp BP Pulse Ox Pulse Ox 11/26/23 11:02 36.4 C L 96 H 18 135/75 97 11/26/23 08:00 97 11/26/23 07:52 36.4 C L 95 H 18 151/91 H 97 11/26/23 06:00 89 11/26/23 04:44 36.4 C L 95 H 20 145/87 H 97 O2 Del Method 11/26/23 11:02 Room Air 11/26/23 08:00 11/26/23 07:52 Room Air 11/26/23 06:00 11/26/23 04:44 Room Air Laboratory Results 11/26/23 11/26/23 11/26/23 Range/Units 11:28 07:57 05:45 Sodium 138 (136-145) mmol/L Potassium 3.8 (3.5-5.1) mmol/L Chloride 105 (98-107) mmol/L Carbon Dioxide 20 L (21-32) mmol/L Anion Gap 13 H (3-11) BUN 8 (6-23) mg/dl Creatinine 0.85 (0.6-1.4) mg/dl Est Cr Clr Drug Dosing 87.8 ml/min Est GFR ( Amer) 112.9 ml/min Est GFR (Non-Af Amer) 97.4 ml/min BUN/Creatinine Ratio 9.4 L (10-20) Glucose 112 H (70-99(Fasting)) mg/dl POC Glucose 116 H 100 H (70-99) mg/dl Calcium 8.7 (8.6-10.3) mg/dl Phosphorus 2.8 (2.5-4.9) mg/dl Magnesium 1.7 (1.7-2.4) mg/dl 11/25/23 11/25/23 11/25/23 Range/Units 21:14 18:33 17:10 Sodium 136 (136-145) mmol/L Potassium 3.4 L (3.5-5.1) mmol/L Chloride 106 (98-107) mmol/L Carbon Dioxide 21 (21-32) mmol/L Anion Gap 9 (3-11) BUN 8 (6-23) mg/dl Creatinine 0.84 (0.6-1.4) mg/dl Est Cr Clr Drug Dosing 93.3 ml/min Est GFR ( Amer) 113.4 ml/min Est GFR (Non-Af Amer) 97.9 ml/min BUN/Creatinine Ratio 9.5 L (10-20) Glucose 99 (70-99(Fasting)) mg/dl POC Glucose 95 102 H (70-99) mg/dl Calcium 8.4 L (8.6-10.3) mg/dl Phosphorus 2.1 L (2.5-4.9) mg/dl Magnesium 1.8 (1.7-2.4) mg/dl 11/25/23 Range/Units 12:26 Sodium (136-145) mmol/L Potassium (3.5-5.1) mmol/L Chloride (98-107) mmol/L Carbon Dioxide (21-32) mmol/L Anion Gap (3-11) BUN (6-23) mg/dl Creatinine (0.6-1.4) mg/dl Est Cr Clr Drug Dosing ml/min Est GFR ( Amer) ml/min Est GFR (Non-Af Amer) ml/min BUN/Creatinine Ratio (10-20) Glucose (70-99(Fasting)) mg/dl POC Glucose 148 H (70-99) mg/dl Calcium (8.6-10.3) mg/dl Phosphorus (2.5-4.9) mg/dl Magnesium (1.7-2.4) mg/dl Medications Administered Current Inpatient Medications Acetaminophen (Acetaminophen 325 Mg Tab) 650 mg PO Q4H PRN PRN Reason: Pain or Fever Stop: 12/24/23 08:54 Aspirin (Aspirin 81 Mg Ectab) 81 mg PO DAILY [facility] Stop: 12/24/23 08:59 Last Admin: 11/26/23 08:22 Dose: 81 mg Atorvastatin Calcium (Atorvastatin 40 Mg Tab) 40 mg PO HS [facility] Stop: 12/24/23 20:59 Last Admin: 11/25/23 21:17 Dose: 40 mg Buspirone HCl (Buspirone 5 Mg Tab) 5 mg PO BID [facility] Stop: 12/24/23 08:59 Last Admin: 11/26/23 08:22 Dose: 5 mg Dextrose (Dextrose 50% 50 Ml Syringe) 25 - 50 ml IV UD PRN; Protocol PRN Reason: Hypoglycemia Protocol Stop: 12/24/23 08:54 Glucagon (Glucagon For Inj 1 Mg Vial) 1 mg SQ UD PRN; Protocol PRN Reason: Hypoglycemia Protocol Stop: 12/24/23 08:54 Glucose (Glucose 10 Tab/Tube) 4 - 8 tab PO UD PRN; Protocol PRN Reason: Hypoglycemia Treatment Stop: 12/24/23 08:54 Glucose (Glucose 40% Gel 15 Gm Tube) 15 - 30 gm PO UD PRN; Protocol PRN Reason: Hypoglycemia Protocol Stop: 12/24/23 08:54 Hydromorphone HCl (Hydromorphone Inj 0.5 Mg/0.5 Ml Syr) 0.5 mg IV Q4H PRN PRN Reason: Pain Stop: 12/08/23 05:27 Sodium Chloride (Nss) 1,000 mls @ 80 mls/hr IV .[id number] [facility] Stop: 12/24/23 08:54 Last Admin: 11/26/23 01:51 Dose: 80 mls/hr Pantoprazole Sodium 40 mg/ (Syringe) 10 mls @ 5 mls/min IV BID [facility] Stop: 12/24/23 08:59 Last Admin: 11/26/23 08:22 Dose: 5 mls/min Insulin Aspart (Insulin Aspart Per Unit Charge) 0 units SC ACHS [facility] Stop: 12/25/23 11:29 Last Admin: 11/26/23 09:36 Dose: Not Given Insulin Glargine (Lantus Per Unit Charge) 0 units SC BID [facility]; Protocol Stop: 12/24/23 20:59 Last Admin: 11/26/23 09:36 Dose: Not Given Labetalol HCl (Labetalol Hcl Iv 5 Mg/Ml 20ml) 10 mg IV Q4H PRN PRN Reason: Hypertension Stop: 12/24/23 05:57 Last Admin: 11/25/23 08:37 Dose: 10 mg Losartan Potassium (Losartan Potassium 50 Mg Tab) 50 mg PO DAILY [facility] Stop: 12/24/23 08:59 Last Admin: 11/26/23 08:22 Dose: 50 mg Magnesium Oxide (Magnesium Oxide 400 Mg Tab) 400 mg PO BID [facility] Stop: 12/24/23 09:44 Last Admin: 11/26/23 08:22 Dose: 400 mg Miscellaneous (Remove Nicoderm Patch) 1 each N/A DAILY@0859 [facility] Stop: 12/24/23 08:58 Last Admin: 11/26/23 08:28 Dose: 1 each Miscellaneous (Carbohydrates For Hypoglycemia ) 15 - 30 gm PO UD PRN PRN Reason: Hypoglycemia Protocol Stop: 12/24/23 08:54 Miscellaneous Information (Pharmacy Glycemic Mgmt Consult) 1 each N/A UD PRN; Protocol PRN Reason: Consult Stop: 12/24/23 08:54 Nicotine (Nicotine 21 Mg/24 Hr Tdsy) 21 mg TD DAILY [facility] Stop: 12/24/23 08:59 Last Admin: 11/26/23 08:28 Dose: 21 mg Nitroglycerin (Nitroglycerin Sl 0.4 Mg/Tab Tab) 0.4 mg SL Q5M PRN PRN Reason: Chest Pain Stop: 12/24/23 08:54 Ondansetron HCl (Ondansetron Inj 2 Mg/Ml 2 Ml Vial) 4 mg IV Q6H PRN PRN Reason: Nausea Stop: 12/24/23 08:54 Last Admin: 11/26/23 09:27 Dose: 4 mg Paroxetine HCl (Paroxetine Hcl 10 Mg Tab) 30 mg PO DAILY [facility] Stop: 12/24/23 08:59 Last Admin: 11/26/23 08:22 Dose: 30 mg Potassium Phosphate (Pot Phosphate Monobasic W/ Sod Tab) 1 tab PO QID [facility] Stop: 12/25/23 05:39 Last Admin: 11/26/23 08:22 Dose: 1 tab
[2023-11-26] MEDS: PANTOprazole 40 MG TAB PO SCH (20:10)
[2023-11-26] MEDS: LORazepam 0.5 MG TAB PO STA (20:40)
--- NOTE | 2023-11-27 07:36 | Hospitalist Progress Note ---
Date of Service November 27, 2023 Assessment & Plan (1) Nausea & vomiting: Plan: 58 yo M w/ type 2 diabetes, hypertension, Warthin's tumor, BPH, bipolar disorder, history of alcoholism but patient states not drinking since 2019 presents with severe abdominal pain associated with nausea and several episodes of vomiting since last Tuesday. Last Tuesday started taking Ozempic first dose. Also on metformin. He was on Jardiance but he stopped on last Tuesday before he started taking Ozempic. He had several episodes of vomitings since then. He states couple of episodes were coffee-ground but most of them are bile and last episode of vomiting was bilious. He had normal bowel movement yesterday. Denies any blood in stools or black stools. Rates abdominal pain 9 / 10 in severity. He had mild chest pain in the middle of the chest. Has shortness of breath because of pain. Has some cough. No fevers. Has headache. Has blurred vision. Has runny nose and sore throat. Nausea, vomiting and abdominal pain possibly secondary to ozempic States started after taking Ozempic last Tuesday CT abdomen pelvis - No acute infectious or inflammatory findings are identified in the abdomen or pelvis. N.p.o. initially now tolerating diet IV fluids initially IV Dilaudid as needed IV antiemetics as needed IV Protonix 40 mg - switched to PO Patient had anion gap and CO2 19 on admission but VBG pH wnl Was on Jardiance until last Tuesday. Continued to have anion gap, glycemic pharmacy was consulted and received IV insulin for euglycemic DKA Now on subq insulin, feeling well, eating critical care educator Pt wants to eliminate other diabetes meds after DC, he wants to start on insulin Discussed w/ pt and glycemic pharmacist - will discharge on lantus 5 units AM and pt will continue metformin 500 ER in the evening. he will closely monitor Blood glucose levels and will follow up w/ PCP. critical care educator also to contact the pt in next 3 days. Questionable coffee-ground emesis Hemoglobin stable, current Hgb > 13 Patient IV Protonix 40 minutes twice daily -> switched to PO stool Hemoccult - negative Close monitor Hypomagnesia replete and monitor chest pain? serial CE - negative Echo -normal LV wall thickness. LV wall motion is normal. LV systolic function is normal. LVEF about 55%. Diastolic dysfunction, grade 2. Tobacco abuse On nicotine patch Diabetes current A1c 9.0% Hold metformin Sliding scale Glycemic pharmacy, health promotion educator, as above Closely monitor Hypertension Elevated Continue home losartan Close monitor Hyperlipidemia Statin Mood disorder Continue home meds Right Warthin tumor under observation with ENT currently DVT prophylaxis SCDs for now for questionable GI bleed Disposition Med/tele Full code Admission and Anticipated Discharge Date Admission Date: November 24, 2023 Subjective Pt seen in follow up of abd. pain, n/v recently started on ozempic, previously on jardiance Feeling much better, tolerating diet, and asking about discharge home. No fevers chills chest pain shortness of breath. Seen health promotion educator, discussed moving forward with insulin. Review of Systems Review of Systems: All systems reviewed & are unremarkable except as noted in Subjective Physical Exam Physical Exam: General- Not in distress Head- atraumatic Eyes- PERRL. ENT- oropharynx clear Neck- supple, no JVD. Lungs- clear to auscultation no wheezing or crackles Heart- regular rhythm; no murmur, no gallop. Abdomen- normal bowel sounds, soft, mild diffuse discomfort, no guarding or rigidity or distension. Extremities- no pretibial edema, no erythema seen. Neuro- alert, oriented x 3; PERRL, no facial palsy; no dysarthria; moves extremities. Skin- warm & dry Results & Data Results & Data Vital Signs (Past 12 Hours) Vital Signs Temp Pulse Pulse Resp BP Pulse Ox O2 Del Method 11/27/23 06:01 78 11/27/23 04:44 36.5 C 85 20 132/73 96 Room Air 11/27/23 00:55 91 H 11/27/23 00:03 36.5 C 92 H 20 137/86 96 Room Air 11/26/23 20:04 36.7 C 94 H 20 150/92 H 97 Room Air Laboratory Results 11/27/23 11/27/23 11/26/23 Range/Units 08:11 06:25 20:29 Sodium 138 (136-145) mmol/L Potassium 3.7 (3.5-5.1) mmol/L Chloride 105 (98-107) mmol/L Carbon Dioxide 27 (21-32) mmol/L Anion Gap 6 (3-11) BUN 12 (6-23) mg/dl Creatinine 0.87 (0.6-1.4) mg/dl Est Cr Clr Drug Dosing 83.9 ml/min Est GFR ( Amer) 111.8 ml/min Est GFR (Non-Af Amer) 96.5 ml/min BUN/Creatinine Ratio 13.8 (10-20) Glucose 166 H (70-99(Fasting)) mg/dl POC Glucose 150 H 97 (70-99) mg/dl Calcium 8.9 (8.6-10.3) mg/dl Phosphorus 2.2 L (2.5-4.9) mg/dl Magnesium 1.8 (1.7-2.4) mg/dl 11/26/23 11/26/23 Range/Units 17:15 11:28 Sodium (136-145) mmol/L Potassium (3.5-5.1) mmol/L Chloride (98-107) mmol/L Carbon Dioxide (21-32) mmol/L Anion Gap (3-11) BUN (6-23) mg/dl Creatinine (0.6-1.4) mg/dl Est Cr Clr Drug Dosing ml/min Est GFR ( Amer) ml/min Est GFR (Non-Af Amer) ml/min BUN/Creatinine Ratio (10-20) Glucose (70-99(Fasting)) mg/dl POC Glucose 179 H 116 H (70-99) mg/dl Calcium (8.6-10.3) mg/dl Phosphorus (2.5-4.9) mg/dl Magnesium (1.7-2.4) mg/dl Medications Administered Current Inpatient Medications Acetaminophen (Acetaminophen 325 Mg Tab) 650 mg PO Q4H PRN PRN Reason: Pain or Fever Stop: 12/24/23 08:54 Aspirin (Aspirin 81 Mg Ectab) 81 mg PO DAILY MAGGIE Stop: 12/24/23 08:59 Last Admin: 11/26/23 08:22 Dose: 81 mg Atorvastatin Calcium (Atorvastatin 40 Mg Tab) 40 mg PO HS MAGGIE Stop: 12/24/23 20:59 Last Admin: 11/26/23 20:12 Dose: 40 mg Buspirone HCl (Buspirone 5 Mg Tab) 5 mg PO BID MAGGIE Stop: 12/24/23 08:59 Last Admin: 11/26/23 20:11 Dose: 5 mg Dextrose (Dextrose 50% 50 Ml Syringe) 25 - 50 ml IV UD PRN; Protocol PRN Reason: Hypoglycemia Protocol Stop: 12/24/23 08:54 Glucagon (Glucagon For Inj 1 Mg Vial) 1 mg SQ UD PRN; Protocol PRN Reason: Hypoglycemia Protocol Stop: 12/24/23 08:54 Glucose (Glucose 10 Tab/Tube) 4 - 8 tab PO UD PRN; Protocol PRN Reason: Hypoglycemia Treatment Stop: 12/24/23 08:54 Glucose (Glucose 40% Gel 15 Gm Tube) 15 - 30 gm PO UD PRN; Protocol PRN Reason: Hypoglycemia Protocol Stop: 12/24/23 08:54 Hydromorphone HCl (Hydromorphone Inj 0.5 Mg/0.5 Ml Syr) 0.5 mg IV Q4H PRN PRN Reason: Pain Stop: 12/08/23 05:27 Insulin Aspart (Insulin Aspart Per Unit Charge) 0 units SC ACHS [facility] Stop: 12/25/23 11:29 Last Admin: 11/26/23 20:36 Dose: Not Given Labetalol HCl (Labetalol Hcl Iv 5 Mg/Ml 20ml) 10 mg IV Q4H PRN PRN Reason: Hypertension Stop: 12/24/23 05:57 Last Admin: 11/25/23 08:37 Dose: 10 mg Losartan Potassium (Losartan Potassium 50 Mg Tab) 50 mg PO DAILY [facility] Stop: 12/24/23 08:59 Last Admin: 11/26/23 08:22 Dose: 50 mg Magnesium Oxide (Magnesium Oxide 400 Mg Tab) 400 mg PO BID [facility] Stop: 12/24/23 09:44 Last Admin: 11/26/23 20:12 Dose: 400 mg Miscellaneous (Remove Nicoderm Patch) 1 each N/A DAILY@0859 [facility] Stop: 12/24/23 08:58 Last Admin: 11/26/23 08:28 Dose: 1 each Miscellaneous (Carbohydrates For Hypoglycemia ) 15 - 30 gm PO UD PRN PRN Reason: Hypoglycemia Protocol Stop: 12/24/23 08:54 Miscellaneous Information (Pharmacy Glycemic Mgmt Consult) 1 each N/A UD PRN; Protocol PRN Reason: Consult Stop: 12/24/23 08:54 Nicotine (Nicotine 21 Mg/24 Hr Tdsy) 21 mg TD DAILY [facility] Stop: 12/24/23 08:59 Last Admin: 11/26/23 08:28 Dose: 21 mg Nitroglycerin (Nitroglycerin Sl 0.4 Mg/Tab Tab) 0.4 mg SL Q5M PRN PRN Reason: Chest Pain Stop: 12/24/23 08:54 Ondansetron HCl (Ondansetron Inj 2 Mg/Ml 2 Ml Vial) 4 mg IV Q6H PRN PRN Reason: Nausea Stop: 12/24/23 08:54 Last Admin: 11/26/23 09:27 Dose: 4 mg Pantoprazole Sodium (Pantoprazole 40 Mg Tab) 40 mg PO QAM [facility] Stop: 12/26/23 18:29 Last Admin: 11/26/23 20:10 Dose: 40 mg Paroxetine HCl (Paroxetine Hcl 10 Mg Tab) 30 mg PO DAILY [facility] Stop: 12/24/23 08:59 Last Admin: 11/26/23 08:22 Dose: 30 mg Potassium Phosphate (Pot Phosphate Monobasic W/ Sod Tab) 1 tab PO QID [facility] Stop: 12/25/23 05:39 Last Admin: 11/26/23 20:11 Dose: 1 tab
[2023-11-27 07:37] LABS: BUN Creatinine Ratio 13.8 (10-20); Calcium 8.9 mg/dl (8.6-10.3); Creatinine Clr Calc Pharmacy 83.9 ml/min; Est GFR (African American) 111.8 ml/min; Est GFR (Non-African American) 96.5 ml/min; Magnesium 1.8 mg/dl (1.7-2.4); Phosphorus 2.2 mg/dl (2.5-4.9); Potassium 3.7 mmol/L (3.5-5.1)
--- NOTE | 2023-11-27 13:47 | Discharge Summary ---
Date of Service November 27, 2023 Admission HPI Per Admitting Provider 58-year-old male with past med history significant for type 2 diabetes, hypertension, Warthin's tumor, BPH, bipolar disorder, history of alcoholism but patient states not drinking since 2019 presents with severe abdominal pain associated with nausea and several episodes of vomiting since last Tuesday. Last Tuesday started taking Ozempic first dose. Also on metformin. He was on Jardiance but he stopped on last Tuesday before he started taking Ozempic. He had several episodes of vomitings since then. He states couple of episodes were coffee-ground but most of them are bile and last episode of vomiting was bilious. He had normal bowel movement yesterday. Denies any blood in stools or black stools. Rates abdominal pain 9 / 10 in severity. He had mild chest pain in the middle of the chest. Has shortness of breath because of pain. Has some cough. No fevers. Has headache. Has blurred vision. Has runny nose and sore throat. Past medical history. As mentioned above Past surgical history. IR biopsy. Tonsillectomy adenoidectomy. Social history. Started smoking 1983 smokes half pack a day. Currently on nicotine patch as per patient. She is quit drinking alcohol 2019. No drug use. Family history. Father had kidney cancer. Maternal grandfather had lung cancer. Mother had uterine cancer. Sister has hypertension. Admission Exam Per Admitting Provider General- Not in distress Head- atraumatic Eyes- PERRL. ENT- oropharynx clear Neck- supple, no JVD. Lungs- clear to auscultation no wheezing or crackles Heart- regular rhythm; no murmur, no gallop. Abdomen- normal bowel sounds, soft, mild diffuse discomfort, no guarding or rigidity or distension. Extremities- no pretibial edema, no erythema seen. Neuro- alert, oriented x 3; PERRL, no facial palsy; no dysarthria; moves extremities. Skin- warm & dry Principal Diagnosis Nausea/vomiting, abdominal pain Poss. euglycemic dka Likely secondary to ozempic use Discharge Exam General- Not in distress Head- atraumatic Eyes- PERRL. ENT- oropharynx clear Neck- supple, no JVD. Lungs- clear to auscultation no wheezing or crackles Heart- regular rhythm; no murmur, no gallop. Abdomen- normal bowel sounds, soft, mild diffuse discomfort, no guarding or rigidity or distension. Extremities- no pretibial edema, no erythema seen. Neuro- alert, oriented x 3; PERRL, no facial palsy; no dysarthria; moves extremities. Skin- warm & dry Discharge Data Allergies Allergy/AdvReac Type Severity Reaction Status Date / Time No Known Allergies Allergy Unverified 06/07/23 11:27 Consultations 11/24/23 04:59 ED Decision to Admit Stat Ordered Studies 11/24/23 08:55 CT Abd and Pelvis [CT abd pelvis IV con only] Urgent FINDINGS: Lung bases: The heart is normal in size and without pericardial effusion. The l verónica bases are clear. Liver: The contrast-enhanced liver is normal in size, contour, and attenuation. There is no intrahepatic biliary ductal dilatation. The hepatic veins and portal veins are patent. Gallbladder: Unremarkable. Spleen: Normal in size and attenuation. Pancreas: Unremarkable. Adrenal glands: A 1.5 cm right adrenal nodule is unchanged. This likely represents an adenoma but cannot be definitively characterized due to the presence of IV contrast. The left adrenal gland is normal in appearance. Kidneys: The contrast enhanced kidneys are normal in size and without hydronephrosis. Mild nonspecific bilateral perinephric stranding is similar to previous. The kidneys enhance symmetrically. Abdominal vasculature: The abdominal aorta is normal in course and caliber noting moderate to advanced atherosclerotic change. Bowel: There is no bowel obstruction. The appendix is well-visualized and normal. Peritoneum: There is no intraperitoneal free air or abdominal ascites. There is a fat-containing umbilical hernia. 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 Lymphadenopathy: None. Pelvic viscera: The prostate gland is enlarged and heterogeneous. The bladder is distended, and the wall is mildly thickened/trabeculated indicating chronic outlet obstruction. Skeletal structures: No lytic or blastic lesions are seen. Mild degenerative change is noted in the sacroiliac joints. IMPRESSION: 1. No acute infectious or inflammatory findings are identified in the abdomen or pelvis. 2. Additional findings as above. Hospital Course (1) Nausea & vomitin yo M w/ type 2 diabetes, hypertension, Warthin's tumor, BPH, bipolar disorder, history of alcoholism but patient states not drinking since 2019 presents with severe abdominal pain associated with nausea and several episodes of vomiting since last Tuesday. Last Tuesday started taking Ozempic first dose. Also on metformin. He was on Jardiance but he stopped on last Tuesday before he started taking Ozempic. He had several episodes of vomitings since then. He states couple of episodes were coffee-ground but most of them are bile and last episode of vomiting was bilious. He had normal bowel movement yesterday. Denies any blood in stools or black stools. Rates abdominal pain 9 / 10 in severity. He had mild chest pain in the middle of the chest. Has shortness of breath because of pain. Has some cough. No fevers. Has headache. Has blurred vision. Has runny nose and sore throat. Nausea, vomiting and abdominal pain possibly secondary to ozempic States started after taking Ozempic last Tuesday CT abdomen pelvis - No acute infectious or inflammatory findings are identified in the abdomen or pelvis. N.p.o. initially now tolerating diet IV fluids initially IV Dilaudid as needed IV antiemetics as needed IV Protonix 40 mg - switched to PO Patient had anion gap and CO2 19 on admission but VBG pH wnl Was on Jardiance until last Tuesday. Continued to have anion gap, glycemic pharmacy was consulted and received IV insulin for euglycemic DKA Now on subq insulin, feeling well, eating life educator Pt wants to eliminate other diabetes meds after DC, he wants to start on insulin Discussed w/ pt and glycemic pharmacist - will discharge on lantus 5 units AM and pt will continue metformin 500 ER in the evening. he will closely monitor Blood glucose levels and will follow up w/ PCP. life educator also to contact the pt in next 3 days. Questionable coffee-ground emesis Hemoglobin stable, current Hgb > 13 Patient IV Protonix 40 minutes twice daily -> switched to PO stool Hemoccult - negative Close monitor Hypomagnesia replete and monitor ? chest pain serial CE - negative Echo -normal LV wall thickness. LV wall motion is normal. LV systolic function is normal. LVEF about 55%. Diastolic dysfunction, grade 2. Tobacco abuse On nicotine patch Diabetes current A1c 9.0% Hold metformin while inpt, DC recs as above Sliding scale Glycemic pharmacy, adult educator, as above Closely monitor Hypertension Continue home losartan Close monitor Hyperlipidemia Statin Mood disorder Continue home meds Right Warthin tumor under observation with ENT currently Total Time Total Time Spent Total Time Spent (In Minutes): 40 Discharge Plan Discharge Items Patient Disposition: Home - Self-Care Reason For Visit: N/V, ABD PAIN, HYPOMAGNESIA Discharge Diagnosis: Nausea/vomiting, abdominal pain Poss. euglycemic dka Likely secondary to ozempic use Activity: Per Instructions section Non-emergency contact: Primary Care Provider Call non-emergency contact if: you have any medication questions and your symptoms worsen Follow-up/Referrals: Rob Chisholm MD [Primary Care Provider] - Diet: Carb Consistent or DM2 Addtl Attending Provider Instructions: Follow up with primary care doctor within 1 week. Stop using ozempic. Take metformin 500 ER in the evening. Use 5 units of insulin in the morning. Closely monitor your blood sugar levels. Make sure to write down your first blood sugar level, fasting, in the morning. Then write down 3-4 more values throughout the day. life educator from the hospital will be calling you in about 3 days as well. Pending Studies at Discharge: No Stand-Alone Forms: My [facility], Smoking Cessation Medications and DC Order Prescriptions: New (DME) pen needle,diabetic, disp unit 32 gauge x 5/32" needle See Rx Instructions .Route Qty: 100 0RF Rx Instructions: As directed insulin glargine [Lantus Solostar U-100 Insulin] 100 unit/mL (3 mL) insulin pen 5 unit subcut DAILY Qty: 3 0RF magnesium oxide 400 mg (241.3 mg magnesium) Tablet 400 mg PO DAILY Qty: 14 0RF Continued losartan 50 mg tablet 50 mg PO DAILY atorvastatin 40 mg tablet 40 mg PO HS buspirone 5 mg tablet 5 mg PO BID aspirin 81 mg tablet,delayed release (DR/EC) 81 mg PO DAILY paroxetine HCl 30 mg tablet 30 mg PO DAILY pantoprazole 40 mg tablet,delayed release (DR/EC) 40 mg PO DAILY nicotine 21 mg/24 hr patch 24 hour 21 mg topical DAILY Discontinued metformin 500 mg tablet extended release 24 hr 2,000 mg PO DAILY Ozempic 0.25 mg or 0.5 mg (2 mg/3 mL) pen injector 0.25 mg SUBCUT WK Discharge Orders: Discharge Order (Routine); Ordered 11/27/23 Ordered By: Bry Marcelo Admission Data Admit Date/Time: 11/24/23 05:42 Attending Provider: Bry Marcelo Admit Provider: Odin Yañez Primary Care Provider: Rob Chisholm Other Providers: Odin Yañez
== END 2023-11-27 14:42 | disposition home or self-care (01) | DRG 392 ==
LOC: ED 02:38 → 2W 05:42

== ENCOUNTER 2024-11-13 13:30 | Inpatient (IN) ==
--- NOTE | 2024-11-13 13:44 | ED Triage Note ---
Date of Service November 13, 2024 Provider in Triage Author: Gabbie Childs History of Present Illness This patient was briefly evaluated while in triage. An abbreviated physical exam was performed. This patient is a 59-year-old Male who presents to the ED for evaluation hx of DM, HTN fall ~ 2 weeks ago-doesn't believe he hit his head afterwards, started having teeth pain, headaches, double vision, photophobia, dizziness treated with PCN for dental pain and that has resolved but HAs persist Physical Exam GENERAL: NAD, ambulatory into triage CARDIOVASCULAR: RRR RESPIRATORY: CTA NEURO: speech clear, normal gait, no facial droop, no extremity weakness Initial orders for labs and / or imaging were placed and patient was placed in the waiting area until a bed is available. Please see further documentation for the full ED course.
[2024-11-13 14:53] LABS: Mean Corpuscular Hemoglobin 31.4 pg (25.0-34.0); Mean Corpuscular Volume 89.7 fL (80.0-100.0); Platelet Count 383 K/uL (130-400); RDW Coefficient of Variation 11.9 % (11.5-14.5); RDW Standard Deviation 38.8 fL (36.4-46.3); Red Blood Count 4.46 M/uL (4.70-6.10)
[2024-11-13 15:08] LABS: Albumin Globulin Ratio 1.7 (0.9-2); Albumin Level 4.3 gm/dl (3.4-5.0); BUN Creatinine Ratio 13.3 (10-20); Bilirubin,Total 0.4 mg/dl (0.2-1.0); Calcium 9.9 mg/dl (8.6-10.3); Creatinine Clr Calc Pharmacy 77.8 ml/min; Globulin 2.5 gm/dl (2.5-4.0); Magnesium 1.8 mg/dl (1.7-2.4); Potassium 4.4 mmol/L (3.5-5.1); Total Protein 6.8 gm/dl (6.0-8.3)
[2024-11-13 15:14] LABS: Basophils # (auto) 0.08 K/uL (0.00-0.20); Basophils % (auto) 0.7 %; Eosinophils # (auto) 0.08 K/uL (0.00-0.50); Eosinophils % (auto) 0.7 %; Immature Granulocytes # (auto) 0.64 K/uL (0.01-0.20); Immature Granulocytes % (auto) 5.5 %; Lymphocytes # (auto) 2.26 K/uL (1.20-3.40); Lymphocytes % (auto) 19.5 %; Monocytes # (auto) 0.75 K/uL (0.11-0.59); Monocytes % (auto) 6.5 %; Neutrophils # (auto) 7.79 K/uL (1.40-6.50); Neutrophils % (auto) 67.1 %; RBC Morphology Unremarkable; Troponin I High Sensitivity 8.2 pg/ml (0-20)
[2024-11-13 15:34] LABS: INR 0.9 (0.9-1.1); Partial Thromboplastin Ratio 0.9; Partial Thromboplastin Time 25 Seconds (21-31)
[2024-11-13] MEDS: OPTIRAY 320 125ml IV ONE (16:17)
--- NOTE | 2024-11-13 16:32 | CT Scan Report ---
Head CT without contrast CT angiogram of the neck CT angiogram of the brain with contrast Provided History: Fall Comparison: None Technique: HEAD CT: Using multidetector thin collimation helical acquisition technique, axial, coronal and sagittal CT images from the skull base to the vertex were obtained without intravenous contrast. HEAD and NECK CTA: During rapid bolus intravenous injection of nonionic contrast material, axial images were obtained using thin collimation multidetector helical technique from the base of the neck through the Vertex of vertex of the head. This CT angiogram data was reconstructed at thin intervals with mild overlap. 3D reconstructions were obtained. The axial source images, multiplanar reformations, 3D reconstructions in both maximum intensity projection display and volume rendered models were reviewed. Dose reduction techniques were achieved by using automatic exposure control and/or adjustment of mA and/or kV according to patient size and/or use of iterative reconstruction technique. Findings: Head CT: There is no intracranial hemorrhage, mass effect, or midline shift. Barba/white matter differentiation in both cerebral hemispheres is preserved. Ventricles are proportionate to the cerebral sulci. Head CTA demonstrates no aneurysm or stenosis of the major intracranial arteries. Neck CTA demonstrates no stenosis of the major cervical arteries. The origins of the great vessels from the aortic arch are patent. The normal distal right internal carotid artery measures 5 mm. The normal distal left internal carotid artery measures 5 mm. No mass is noted within the visualized portions of the cervical soft tissues or lung apices. Impression: 1. Head CTA demonstrates no aneurysm or stenosis of the major intracranial arteries, 2. Neck CTA demonstrates no stenosis of the major cervical arteries. 3. No intracranial hemorrhage on the noncontrast head CT. The study was analyzed using artificial intelligence software for large vessel occlusion detection. Electronically signed by Garcia Alonso 11-13-2024 4:31 PM
--- NOTE | 2024-11-13 16:46 | Emergency Department Note ---
Impression & Plan Stroke-like symptoms, Double vision, Leukocytosis ED Provider Note NAME: JOSEPHINE RIOS AGE: 59 SEX: M : 1965 ARRIVES VIA: Walk-In INFORMANT: Patient ED PROVIDER(S): Giorgio Bauer DO CHIEF COMPLAINT: Double vision, headache HPI: Patient is a 59-year-old male with a past medical history of diabetes, lacunar infarct who presents to the ER for double vision and headache. Headache is located behind his eyes. He notes that he fell about 6 to 9 days ago. He has been having headache for the past 7 days. Denies any weakness or numbness in the arms or legs. Double vision which is 2 images next to each other has been present for the past 7 days. He notes light and sound to bother him. No focal weakness in the arms or legs. No numbness. No chest pain or shortness of breath. No dysuria, urgency, or frequency. No other exacerbating or remitting factors. ADDITIONAL HISTORY OBTAINED: Per HPI Chronic Medical/Social Conditions Affecting Care: Per HPI PAST MEDICAL HISTORY:See Below PAST SURGICAL HISTORY:See Below FAMILY HISTORY:See Below SOCIAL HISTORY:See Below HOME MEDICATIONS:See Below ALLERGIES:See Below VITALS:See Below PHYSICAL EXAMINATION: GENERAL: Sitting up in bed, alert, well appearing, well nourished, no distress, non-toxic EYE EXAM: normal conjunctiva. PERRL and EOM's intact. OROPHARYNX: no exudate, no erythema, lips, buccal mucosa, and tongue normal and mucous membranes are moist NECK: supple, no nuchal rigidity, no adenopathy, non-tender LUNGS: Clear to auscultation. Normal chest wall mechanics HEART: no murmurs, S1 normal and S2 normal ABDOMEN: abdomen soft, non-tender, normo-active bowel sounds, no masses, no rebound or guarding. BACK: Back is symmetrical on inspection and there is no deformity, no midline tenderness, no CVA tenderness. SKIN: no rashes and no bruising UPPER EXTREMITIES: upper extremities are grossly normal. LOWER EXTREMITIES: No pitting edema. NEURO EXAM: Normal sensorium, cranial nerves II-XII intact, normal speech, no weakness of arms, no weakness of legs. No drift. Finger to nose intact. Gross sensation intact. MEDICAL DECISION MAKING: Patient is a 59-year-old male who presents to the ER for the below stated complaint. IV was established blood work was obtained. Labs show leukocytosis 11.6 thousand. No significant anemia. INR unremarkable. BMP with slightly elevated glucose at 194. LFTs bilirubin is unremarkable. Troponin was negative. CT angios of the head and neck showed no acute pathology. Patient does have a history of a previous stroke. [facility] They recommended admission MRI and echo for complete workup. Patient was given Benadryl Toradol and Compazine for the headache. Consults/Care Managements Discussions: Per [facility] Triage Nursing notes reviewed. Limited review of prior medical records performed Vital Signs: reviewed and remarkable for no significant abnormalities Differential diagnosis: Differential Diagnosis includes but is not limited to headache, tension headache, cluster headache, migraine, subarachnoid hemorrhage, meningitis, mass, central venous thrombus, concussion, trauma and epidural/subdural hemorrhage. ER treatment provided: See below Diagnostics interpreted by me include EKG and cardiac monitoring as listed below: -Cardiac Monitoring: An order was placed for continuous cardiac monitoring. The monitor shows a rate of 80 with sinus rhythm. -ECG: Sinus rhythm rate 87 Normal axis No PVCs QTc 445 -Laboratory studies:Interpreted by me as stated above in MDM and shown below. Imaging studies: Xrays: As interpreted by me:none CTs show: CT of the head per my pleurae interpretation showed no obvious large bleed CT angio the head and neck was negative per radiology Procedures:none Critical Care: None Past Med/Surg History Problem List (Updated 11/13/24 @ 22:08 by Giorgio Bauer DO) Leukocytosis (Acute) Double vision (Acute) Stroke-like symptoms (Acute) Medical History (Updated 11/13/24 @ 22:08 by Giorgio Bauer DO) HTN (hypertension) History of CVA (cerebrovascular accident) Diabetes mellitus type 2 in nonobese Lacunar infarction PTSD (post-traumatic stress disorder) Surgical History No pertinent past surgical history Social History Smoking Status: Never smoker Tobacco Type: Cigarettes Cigarettes Per Day: 1 pack/day; Second Hand Exposure: No; Do You Dip or Chew Tobacco: No; Hx Alcohol Use: No Hx Substance Use: Yes Last Used Substance Other:: 1-2 weeks ago Substance Use Type Other:: medical marijuana Preferred Language: Arabic Communication Ability: Effective Regional Administrative Assistant Required: No Beliefs That Will Affect Care: None Current Living Situation: Alone Feels Safe at Home: Yes Assistive Devices: None Allergies Allergies Allergy/AdvReac Type Severity Reaction Status Date / Time No Known Allergies Allergy Unverified 06/07/23 11:27 Home Meds Home Medications Medication Instructions Recorded Confirmed losartan 50 mg tablet 50 mg PO DAILY 11/24/23 11/13/24 pantoprazole 40 mg tablet,delayed 40 mg PO DAILY 11/24/23 11/13/24 release aripiprazole 5 mg tablet 5 mg PO DAILY 11/13/24 11/13/24 insulin aspart U-100 100 unit/mL 1 sliding scale dose subcut UD 11/13/24 11/13/24 (3 mL) subcutaneous pen insulin glargine 100 unit/mL (3 24 unit subcut QAM 11/13/24 11/13/24 mL) subcutaneous pen (Lantus Solostar U-100 Insulin) Previous Rx's Medication Instructions Recorded pen needle,diabetic, disp unit 32 #100 ea 11/27/23 gauge x 5/32", remover and disposal unit Results & Data (ED) Vital Signs Vital Signs - 24 hr 11/13/24 13:42 11/13/24 15:48 11/13/24 16:06 Temperature 36.9 C Temperature Source Oral Pulse Rate 94 H 85 Pulse Rate [Left Apical] 81 Respiratory Rate 20 21 Respiratory Effort / Characteristics Non-Labored Spontaneous Respiratory Depth Normal Respiratory Pattern Regular Blood Pressure 156/104 H Blood Pressure [Right Arm] 159/98 H Blood Pressure Mean 121 Blood Pressure Mean [Right Arm] 118 Blood Pressure Position [Right Arm] Semi-fowlers Pulse Oximetry 99 99 Oxygen Delivery Method Room Air Room Air Sepsis Recent Fever Within 48 Hours No Sepsis New/Unexplained Change in Mental Status N/A Sepsis Action Taken by Nursing No Action Required 11/13/24 16:24 11/13/24 16:30 11/13/24 16:42 Temperature Temperature Source Pulse Rate 79 78 Pulse Rate [Left Apical] Respiratory Rate 16 17 Respiratory Effort / Characteristics Respiratory Depth Respiratory Pattern Blood Pressure 157/91 H Blood Pressure [Right Arm] Blood Pressure Mean 113 Blood Pressure Mean [Right Arm] Blood Pressure Position [Right Arm] Pulse Oximetry 97 Oxygen Delivery Method Room Air Sepsis Recent Fever Within 48 Hours Sepsis New/Unexplained Change in Mental Status Sepsis Action Taken by Nursing 11/13/24 17:12 11/13/24 17:21 11/13/24 17:27 Temperature Temperature Source Pulse Rate 78 74 80 Pulse Rate [Left Apical] Respiratory Rate 20 23 Respiratory Effort / Characteristics Respiratory Depth Respiratory Pattern Blood Pressure Blood Pressure [Right Arm] Blood Pressure Mean Blood Pressure Mean [Right Arm] Blood Pressure Position [Right Arm] Pulse Oximetry 100 98 96 Oxygen Delivery Method Room Air Room Air Room Air Sepsis Recent Fever Within 48 Hours Sepsis New/Unexplained Change in Mental Status Sepsis Action Taken by Nursing 11/13/24 17:30 Temperature Temperature Source Pulse Rate Pulse Rate [Left Apical] Respiratory Rate Respiratory Effort / Characteristics Respiratory Depth Respiratory Pattern Blood Pressure 132/94 Blood Pressure [Right Arm] Blood Pressure Mean 100 Blood Pressure Mean [Right Arm] Blood Pressure Position [Right Arm] Pulse Oximetry Oxygen Delivery Method Sepsis Recent Fever Within 48 Hours Sepsis New/Unexplained Change in Mental Status Sepsis Action Taken by Nursing Laboratory Data 11/13/24 14:26 11/13/24 14:26 Lab Results 11/13/24 11/13/24 Range/Units 14:21 14:26 WBC 11.60 H (4.8-10.8) K/ul RBC 4.46 L (4.70-6.10) M/uL Hgb 14.0 (14.0-18.0) g/dl Hct 40.0 L (42.0-52.0) % MCV 89.7 (80.0-100.0) fL MCH 31.4 (25.0-34.0) pg MCHC 35.0 (32.0-36.0) g/dL RDW Std Deviation 38.8 (36.4-46.3) fL RDW Coeff of Asad 11.9 (11.5-14.5) % Plt Count 383 (130-400) K/uL MPV 8.0 L (9.4-12.4) fL Immature Gran % (Auto) 5.5 % Neut % (Auto) 67.1 % Lymph % (Auto) 19.5 % Runnels % (Auto) 6.5 % Eos % (Auto) 0.7 % Baso % (Auto) 0.7 % Neut # (Auto) 7.79 H (1.40-6.50) K/uL Lymph # (Auto) 2.26 (1.20-3.40) K/uL Runnels # (Auto) 0.75 H (0.11-0.59) K/uL Eos # (Auto) 0.08 (0.00-0.50) K/uL Baso # (Auto) 0.08 (0.00-0.20) K/uL Immature Gran # (Auto) 0.64 H (0.01-0.20) K/uL RBC Morphology Unremarkable PT 10.0 (9.0-12.0) Seconds INR 0.9 (0.9-1.1) APTT 25 (21-31) Seconds PTT Ratio 0.9 Sodium 137 (136-145) mmol/L Potassium 4.4 (3.5-5.1) mmol/L Chloride 100 (98-107) mmol/L Carbon Dioxide 31 (21-32) mmol/L Anion Gap 6 (3-11) BUN 13 (6-23) mg/dl Creatinine 0.98 (0.6-1.4) mg/dl Est Cr Clr Drug Dosing 77.8 ml/min eGFR 89.94 BUN/Creatinine Ratio 13.3 (10-20) Glucose 194 H (70-99(Fasting)) mg/dl POC Glucose 199 H (70-99) mg/dl Calcium 9.9 (8.6-10.3) mg/dl Magnesium 1.8 (1.7-2.4) mg/dl Total Bilirubin 0.4 (0.2-1.0) mg/dl AST 15 (13-39) U/L ALT 17 (7-52) U/L Alkaline Phosphatase 69 (34-104) U/L Troponin I High Sens 8.2 (0-20) pg/ml Total Protein 6.8 (6.0-8.3) gm/dl Albumin 4.3 (3.4-5.0) gm/dl Globulin 2.5 (2.5-4.0) gm/dl Albumin/Globulin Ratio 1.7 (0.9-2) Administered Medications Insulin Aspart (Insulin Aspart Per Unit Charge) 0 units SC ACHS MAGGIE Stop: 12/13/24 21:46 Last Admin: 11/13/24 22:01 Dose: Not Given Documented By: DPK Discontinued Medications Diphenhydramine HCl (Diphenhydramine 50 Mg/Ml Vial) 50 mg IV NOW STA Stop: 11/13/24 16:47 Last Admin: 11/13/24 16:58 Dose: 50 mg Documented By: WILLOW Prochlorperazine (Compazine) 2 mls @ 1 mls/min IV ONE ONE Stop: 11/13/24 16:47 Last Admin: 11/13/24 16:58 Dose: 1 mls/min Documented By: WILLOW Ioversol (Optiray 320 125ml) 119 ml IV ONCE ONE Stop: 11/13/24 16:17 Last Admin: 11/13/24 16:17 Dose: 119 ml Documented By: ROB Ketorolac Tromethamine (Ketorolac Tromethamine 15 Mg/Ml Vial) 15 mg IV NOW ONE Stop: 11/13/24 16:47 Last Admin: 11/13/24 16:58 Dose: 15 mg Documented By: WILLOW Imaging Data Radiologist's Impression: Head CT 11/13/24 13:[address] without contrast CT angiogram of the neck CT angiogram of the brain with contrast Provided History: Fall Comparison: None Technique: HEAD CT: Using multidetector thin collimation helical acquisition technique, axial, coronal and sagittal CT images from the skull base to the vertex were obtained without intravenous contrast. HEAD and NECK CTA: During rapid bolus intravenous injection of nonionic contrast material, axial images were obtained using thin collimation multidetector helical technique from the base of the neck through the Vertex of vertex of the head. This CT angiogram data was reconstructed at thin intervals with mild overlap. 3D reconstructions were obtained. The axial source images, multiplanar reformations, 3D reconstructions in both maximum intensity projection display and volume rendered models were reviewed. Dose reduction techniques were achieved by using automatic exposure control and/or adjustment of mA and/or kV according to patient size and/or use of iterative reconstruction technique. Findings: Head CT: There is no intracranial hemorrhage, mass effect, or midline shift. Barba/white matter differentiation in both cerebral hemispheres is preserved. Ventricles are proportionate to the cerebral sulci. Head CTA demonstrates no aneurysm or stenosis of the major intracranial arteries. Neck CTA demonstrates no stenosis of the major cervical arteries. The origins of the great vessels from the aortic arch are patent. The normal distal right internal carotid artery measures 5 mm. The normal distal left internal carotid artery measures 5 mm. No mass is noted within the visualized portions of the cervical soft tissues or lung apices. Impression: 1. Head CTA demonstrates no aneurysm or stenosis of the major intracranial arteries, 2. Neck CTA demonstrates no stenosis of the major cervical arteries. 3. No intracranial hemorrhage on the noncontrast head CT. The study was analyzed using artificial intelligence software for large vessel occlusion detection. Electronically signed by Garcia Alonso 11-13-2024 4:32 PM Head CTA 11/13/24 13:[address] without contrast CT angiogram of the neck CT angiogram of the brain with contrast Provided History: Fall Comparison: None Technique: HEAD CT: Using multidetector thin collimation helical acquisition technique, axial, coronal and sagittal CT images from the skull base to the vertex were obtained without intravenous contrast. HEAD and NECK CTA: During rapid bolus intravenous injection of nonionic contrast material, axial images were obtained using thin collimation multidetector helical technique from the base of the neck through the Vertex of vertex of the head. This CT angiogram data was reconstructed at thin intervals with mild overlap. 3D reconstructions were obtained. The axial source images, multiplanar reformations, 3D reconstructions in both maximum intensity projection display and volume rendered models were reviewed. Dose reduction techniques were achieved by using automatic exposure control and/or adjustment of mA and/or kV according to patient size and/or use of iterative reconstruction technique. Findings: Head CT: There is no intracranial hemorrhage, mass effect, or midline shift. Barba/white matter differentiation in both cerebral hemispheres is preserved. Ventricles are proportionate to the cerebral sulci. Head CTA demonstrates no aneurysm or stenosis of the major intracranial arteries. Neck CTA demonstrates no stenosis of the major cervical arteries. The origins of the great vessels from the aortic arch are patent. The normal distal right internal carotid artery measures 5 mm. The normal distal left internal carotid artery measures 5 mm. No mass is noted within the visualized portions of the cervical soft tissues or lung apices. Impression: 1. Head CTA demonstrates no aneurysm or stenosis of the major intracranial arteries, 2. Neck CTA demonstrates no stenosis of the major cervical arteries. 3. No intracranial hemorrhage on the noncontrast head CT. The study was analyzed using artificial intelligence software for large vessel occlusion detection. Electronically signed by Garcia Alonso 11-13-2024 4:31 PM Neck CTA 11/13/24 13:[address] without contrast CT angiogram of the neck CT angiogram of the brain with contrast Provided History: Fall Comparison: None Technique: HEAD CT: Using multidetector thin collimation helical acquisition technique, axial, coronal and sagittal CT images from the skull base to the vertex were obtained without intravenous contrast. HEAD and NECK CTA: During rapid bolus intravenous injection of nonionic contrast material, axial images were obtained using thin collimation multidetector helical technique from the base of the neck through the Vertex of vertex of the head. This CT angiogram data was reconstructed at thin intervals with mild overlap. 3D reconstructions were obtained. The axial source images, multiplanar reformations, 3D reconstructions in both maximum intensity projection display and volume rendered models were reviewed. Dose reduction techniques were achieved by using automatic exposure control and/or adjustment of mA and/or kV according to patient size and/or use of iterative reconstruction technique. Findings: Head CT: There is no intracranial hemorrhage, mass effect, or midline shift. Barba/white matter differentiation in both cerebral hemispheres is preserved. Ventricles are proportionate to the cerebral sulci. Head CTA demonstrates no aneurysm or stenosis of the major intracranial arteries. Neck CTA demonstrates no stenosis of the major cervical arteries. The origins of the great vessels from the aortic arch are patent. The normal distal right internal carotid artery measures 5 mm. The normal distal left internal carotid artery measures 5 mm. No mass is noted within the visualized portions of the cervical soft tissues or lung apices. Impression: 1. Head CTA demonstrates no aneurysm or stenosis of the major intracranial arteries, 2. Neck CTA demonstrates no stenosis of the major cervical arteries. 3. No intracranial hemorrhage on the noncontrast head CT. The study was analyzed using artificial intelligence software for large vessel occlusion detection. Electronically signed by Garcia Alonso 11-13-2024 4:31 PM Discharge Plan Visit Data Chief Complaint: Visual Disturbance Stated Complaint: ORAL PAIN, DOUBLE VISION, HEADACHE, DIABETES PT ED Provider: Giorgio Bauer Discharge Problem: Stroke-like symptoms, Double vision, Leukocytosis Patient Disposition: Admitted As Inpatient Discharge Instructions Interventions: ED Discharge Assessment Last Done: 11/13/24 21:15 Discharge Problem: Leukocytosis Qualifiers: Leukocytosis type: unspecified Qualified Code(s): D72.829 - Elevated white blood cell count, unspecified
--- NOTE | 2024-11-13 16:54 | Electrocardiogram Report ---
Test Reason : Blood Pressure : */* mmHG Vent. Rate : 87 BPM Atrial Rate : 87 BPM P-R Int : 180 ms QRS Dur : 74 ms QT Int : 370 ms P-R-T Axes : 67 -25 60 degrees QTcB Int : 445 ms Normal sinus rhythm Nonspecific ST and T wave abnormality Abnormal ECG When compared with ECG of 24-Nov-2023 02:56, No significant change was found Confirmed by Garcia Boo ([id number]) on 11/13/2024 4:53:38 PM Referred By: Confirmed By: Garcia Boo
[2024-11-13] MEDS: KETOROLAC TROMETHAMINE 15 MG/ML VIAL IV ONE (16:58)
[2024-11-13] MEDS: PROCHLORPERAZINE 2 ML IV ONE (16:58)
[2024-11-13] MEDS: diphenhydrAMINE 50 MG/ML VIAL IV STA (16:58)
--- NOTE | 2024-11-13 18:21 | History & Physical Report ---
Date of Service November 13, 2024 Assessment & Plan (1) Stroke-like symptoms: (2) History of CVA (cerebrovascular accident): Plan: Admit to telemetry Patient presenting from home for evaluation of double vision, headache, dizziness. Patient reports that 9 days ago, he tripped on the curb walking into work. He reports he fell to his knees and did not strike his head. 2 days later, patient reports he developed severe dental pain. His dentist prescribed him penicillin. He recently completed the course. At about the same time, patient reports he developed frontal headache, double vision, and dizziness. Patient reports that since completing the course of penicillin, the dental pain has significantly improved. However he still has some residual frontal headache, double vision, dizziness. Prior history of lacunar CVA and patient self stopped aspirin and statin about 6 months ago due to wanting to reduce medication list and leg weakness In the ED, head CT, head and neck CTA unremarkable for acute findings Neuro checks Brain MRI Echo Neuro consult Resume ASA and statin (3) HTN (hypertension): Plan: Hold losartan for now to allow for permissive hypertension in the setting of possible acute CVA (4) Diabetes mellitus type 2 in nonobese: Plan: HgbA1c 7.9 06/2024, will update with AM labs Lantus 10 units BID (CARDIAC SONOGRAPHER dose 24u in the AM) and Novolog per protocol while hospitalized (CARDIAC SONOGRAPHER dose 5u breakfast, 8u with lunch and dinner) DVT PROPHYLAXIS SCDs Patient seen in collaboration with Dr. Marcelo. I spent a total of 75 minutes coordinating, documenting, and providing care for this patient excluding time spent in the performance of separately billed s ervices. This included personally reviewing all current laboratories and imaging studies, medication reconciliation, outpatient chart review, and discussion with specialists. History of Present Illness Chief Complaint: double vision, dizziness, headache Primary Care Provider: Rob Chisholm MD 59-year-old male with PMH DM type II, HTN, prior CVA, bipolar disorder, and other problems listed below who presents to the ED for evaluation of double vision, dizziness, headache. Patient reports that 9 days ago, he tripped on the curb walking into work. He reports he fell to his knees and did not strike his head. 2 days later, patient reports he developed severe dental pain. His dentist prescribed him penicillin. He recently completed the course. At about the same time, patient reports he developed frontal headache, double vision, and dizziness. Patient reports that since completing the course of penicillin, the dental pain has significantly improved. However he still has some residual frontal headache, double vision, dizziness. Patient denies fevers and chills. No unilateral weakness, numbness, tingling. States that his speech does not feel at baseline to him however is attributing that to recently receiving IV Benadryl. Patient denies abdominal pain, nausea, vomiting, diarrhea. No urinary symptoms. In the ED, head CT, head and neck CTA are unremarkable for acute findings. Neurology was consulted by ED and recommends admission for brain MRI and echo. Patient was given IV diphenhydramine, IV ketorolac, IV prochlorperazine. Allergies Allergy/AdvReac Type Severity Reaction Status Date / Time No Known Allergies Allergy Unverified 06/07/23 11:27 Home Medications Medication Instructions Recorded Confirmed Type losartan 50 mg tablet 50 mg PO DAILY 11/24/23 11/13/24 History pantoprazole 40 mg tablet,delayed 40 mg PO DAILY 11/24/23 11/13/24 History release pen needle,diabetic, disp unit 32 #100 ea 11/27/23 Rx gauge x 5/32", remover and disposal unit aripiprazole 5 mg tablet 5 mg PO DAILY 11/13/24 11/13/24 History insulin aspart U-100 100 unit/mL 1 sliding scale dose subcut UD 11/13/24 11/13/24 History (3 mL) subcutaneous pen insulin glargine 100 unit/mL (3 24 unit subcut QAM 11/13/24 11/13/24 History mL) subcutaneous pen (Lantus Solostar U-100 Insulin) Past Med/Surg History Problem List (Updated 11/13/24 @ 18:16 by DOMINGO Rucker) Stroke-like symptoms Medical History (Updated 11/13/24 @ 18:16 by DOMINGO Rucker) HTN (hypertension) History of CVA (cerebrovascular accident) Diabetes mellitus type 2 in nonobese Lacunar infarction PTSD (post-traumatic stress disorder) Surgical History No pertinent past surgical history Social History Smoking Status: Never smoker Tobacco Type: Cigarettes Cigarettes Per Day: 1 pack/day; Second Hand Exposure: No; Do You Dip or Chew Tobacco: No; Hx Alcohol Use: No Hx Substance Use: Yes Last Used Substance Other:: 1-2 weeks ago Substance Use Type Other:: medical marijuana Preferred Language: Turkish Communication Ability: Effective Benefits Coordinator Required: No Beliefs That Will Affect Care: None Current Living Situation: Alone Feels Safe at Home: Yes Assistive Devices: None Review of Systems Review of Systems: All systems reviewed & are unremarkable except as noted in HPI & below Physical Exam Constitutional: WD/WN, vitals as above no acute distress Eyes: PERRL, conjunctivae normal, anicteric sclerae ENMT: external ear and nose normal, oropharynx normal Respiratory: normal respiratory effort, lungs clear to auscultation Cardiovascular: Rate/Rhythm: regular rate and regular rhythm Vessels: normal peripheral pulses Extremities: no edema Gastrointestinal (Abdomen): normal bowel sounds, soft, nontender, no hepatosplenomegaly Musculoskeletal: no cyanosis or clubbing, extremities motor strength 5/5 Skin: no rashes, warm and dry Neurologic: no focal motor deficits Psychiatric: A+Ox3, euthymic affect Results & Data Results & Data Vital Signs (Past 12 Hours) Vital Signs Temp Pulse Pulse Resp BP BP Pulse Ox 11/13/24 17:42 77 15 95 11/13/24 17:36 74 13 96 11/13/24 17:30 132/94 11/13/24 17:27 80 23 96 11/13/24 17:21 74 20 98 11/13/24 17:12 78 100 11/13/24 16:42 78 17 11/13/24 16:30 157/91 H 11/13/24 16:24 79 16 97 11/13/24 16:06 85 11/13/24 15:48 81 21 159/98 H 99 11/13/24 13:42 36.9 C 94 H 20 156/104 H 99 O2 Del Method 11/13/24 17:42 Room Air 11/13/24 17:36 Room Air 11/13/24 17:30 11/13/24 17:27 Room Air 11/13/24 17:21 Room Air 11/13/24 17:12 Room Air 11/13/24 16:42 11/13/24 16:30 11/13/24 16:24 Room Air 11/13/24 16:06 11/13/24 15:48 Room Air 11/13/24 13:42 Room Air Laboratory Results Short CBC 11/13/24 Range/Units 14:26 WBC 11.60 H (4.8-10.8) K/ul Hgb 14.0 (14.0-18.0) g/dl Hct 40.0 L (42.0-52.0) % Plt Count 383 (130-400) K/uL BMP 11/13/24 14:26 Sodium 137 Potassium 4.4 Chloride 100 Carbon Dioxide 31 BUN 13 Creatinine 0.98 Glucose 194 H Calcium 9.9 Liver Function 11/13/24 Range/Units 14:26 Total Bilirubin 0.4 (0.2-1.0) mg/dl AST 15 (13-39) U/L ALT 17 (7-52) U/L Alkaline Phosphatase 69 (34-104) U/L Albumin 4.3 (3.4-5.0) gm/dl Diagnostic Findings Head CT 11/13/24 13:[address] without contrast CT angiogram of the neck CT angiogram of the brain with contrast Provided History: Fall Comparison: None Technique: HEAD CT: Using multidetector thin collimation helical acquisition technique, axial, coronal and sagittal CT images from the skull base to the vertex were obtained without intravenous contrast. HEAD and NECK CTA: During rapid bolus intravenous injection of nonionic contrast material, axial images were obtained using thin collimation multidetector helical technique from the base of the neck through the Vertex of vertex of the head. This CT angiogram data was reconstructed at thin intervals with mild overlap. 3D reconstructions were obtained. The axial source images, multiplanar reformations, 3D reconstructions in both maximum intensity projection display and volume rendered models were reviewed. Dose reduction techniques were achieved by using automatic exposure control and/or adjustment of mA and/or kV according to patient size and/or use of iterative reconstruction technique. Findings: Head CT: There is no intracranial hemorrhage, mass effect, or midline shift. Barba/white matter differentiation in both cerebral hemispheres is preserved. Ventricles are proportionate to the cerebral sulci. Head CTA demonstrates no aneurysm or stenosis of the major intracranial arteries. Neck CTA demonstrates no stenosis of the major cervical arteries. The origins of the great vessels from the aortic arch are patent. The normal distal right internal carotid artery measures 5 mm. The normal distal left internal carotid artery measures 5 mm. No mass is noted within the visualized portions of the cervical soft tissues or lung apices. Impression: 1. Head CTA demonstrates no aneurysm or stenosis of the major intracranial arteries, 2. Neck CTA demonstrates no stenosis of the major cervical arteries. 3. No intracranial hemorrhage on the noncontrast head CT. The study was analyzed using artificial intelligence software for large vessel occlusion detection. Electronically signed by Garcia Alonso 11-13-2024 4:32 PM Head CTA 11/13/24 13:[address] without contrast CT angiogram of the neck CT angiogram of the brain with contrast Provided History: Fall Comparison: None Technique: HEAD CT: Using multidetector thin collimation helical acquisition technique, axial, coronal and sagittal CT images from the skull base to the vertex were obtained without intravenous contrast. HEAD and NECK CTA: During rapid bolus intravenous injection of nonionic contrast material, axial images were obtained using thin collimation multidetector helical technique from the base of the neck through the Vertex of vertex of the head. This CT angiogram data was reconstructed at thin intervals with mild overlap. 3D reconstructions were obtained. The axial source images, multiplanar reformations, 3D reconstructions in both maximum intensity projection display and volume rendered models were reviewed. Dose reduction techniques were achieved by using automatic exposure control and/or adjustment of mA and/or kV according to patient size and/or use of iterative reconstruction technique. Findings: Head CT: There is no intracranial hemorrhage, mass effect, or midline shift. Barba/white matter differentiation in both cerebral hemispheres is preserved. Ventricles are proportionate to the cerebral sulci. Head CTA demonstrates no aneurysm or stenosis of the major intracranial arteries. Neck CTA demonstrates no stenosis of the major cervical arteries. The origins of the great vessels from the aortic arch are patent. The normal distal right internal carotid artery measures 5 mm. The normal distal left internal carotid artery measures 5 mm. No mass is noted within the visualized portions of the cervical soft tissues or lung apices. Impression: 1. Head CTA demonstrates no aneurysm or stenosis of the major intracranial arteries, 2. Neck CTA demonstrates no stenosis of the major cervical arteries. 3. No intracranial hemorrhage on the noncontrast head CT. The study was analyzed using artificial [employer] software for large vessel occlusion detection. Electronically signed by Garcia Alonso 11-13-2024 4:31 PM Neck CTA 11/13/24 13:[address] without contrast CT angiogram of the neck CT angiogram of the brain with contrast Provided History: Fall Comparison: None Technique: HEAD CT: Using multidetector thin collimation helical acquisition technique, axial, coronal and sagittal CT images from the skull base to the vertex were obtained without intravenous contrast. HEAD and NECK CTA: During rapid bolus intravenous injection of nonionic contrast material, axial images were obtained using thin collimation multidetector helical technique from the base of the neck through the Vertex of vertex of the head. This CT angiogram data was reconstructed at thin intervals with mild overlap. 3D reconstructions were obtained. The axial source images, multiplanar reformations, 3D reconstructions in both maximum intensity projection display and volume rendered models were reviewed. Dose reduction techniques were achieved by using automatic exposure control and/or adjustment of mA and/or kV according to patient size and/or use of iterative reconstruction technique. Findings: Head CT: There is no intracranial hemorrhage, mass effect, or midline shift. Barba/white matter differentiation in both cerebral hemispheres is preserved. Ventricles are proportionate to the cerebral sulci. Head CTA demonstrates no aneurysm or stenosis of the major intracranial arteries. Neck CTA demonstrates no stenosis of the major cervical arteries. The origins of the great vessels from the aortic arch are patent. The normal distal right internal carotid artery measures 5 mm. The normal distal left internal carotid artery measures 5 mm. No mass is noted within the visualized portions of the cervical soft tissues or lung apices. Impression: 1. Head CTA demonstrates no aneurysm or stenosis of the major intracranial arteries, 2. Neck CTA demonstrates no stenosis of the major cervical arteries. 3. No intracranial hemorrhage on the noncontrast head CT. The study was analyzed using artificial intelligence software for large vessel occlusion detection. Electronically signed by Garcia Alonso 11-13-2024 4:31 PM Code Status & VTE Plan VTE Prophylaxis Plan VTE Prophylaxis will be ordered: Yes Supervising Physician Co-Signing Physician Notes Pt seen and examined by , care coordinated w/ Clarence ALNE, pls refer to her note above for further detail. 59 yo M w/ hx of DM type II, HTN, prior CVA, bipolar disorder, who presents w/ double vision, dizziness, headache. Pt tripped on the curb walking into work a week ago, fell to his knees and did not strike his head. 2 days later, he developed severe dental pain and his dentist prescribed him penicillin - completed the course last night. At about the same time, patient reports he developed frontal headache, double vision, and dizziness. Patient reports that since completing the course of penicillin, the dental pain has significantly improved. Patient denies fevers and chills. In the ED, head CT, head and neck CTA are unremarkable for acute findings. Neurology was consulted by ED and recommends admission for brain MRI and echo. Currently pt is sitting up in bed in NAD, he is awake, alert, answers appropriately. No facial asymmetry, and no slurred speech but he continues to report double vision (x1 week). No LE or UE weakness. Lungs CTAB. Heart sounds regular. Abdomen soft, nontender. Stroke work up ordered including brain MRI, echo, neuro consult. given recent dental infection and ongoing unusual symptoms, will also obtain blood cultures. cont. to closely monitor. MD Fozia
--- OUTSIDE RECORDS SUMMARY | 2024-11-13 19:35 | External Medical Summary | Summary of Care ---
Author Name Unknown Organization [facility] Address [address] [place] [address] Phone [phone] Care Team Providers Care Service Desk Specialist Name Role Phone Alphonso Carmona MD Primary Care Provider + Reason for Visit * Reason Comments eRx-Medication Refill Encounter Details Date Type Department Care Team (Late st Contact Info) Description 10/17/2024 Refill [facility] Practice [facility] [address] [facility] [address] Alphonso Carmona MD [address] [facility] [place] [address] Allergies No known active allergiesdocumented as of this encounter (statuses as of 10/19/2024) Medications OneTouch Ultra 2 w/Device KitIndications:T ype 2 diabetes mellitus with diabetic mononeuropathy, without long-term current use of insulin (HCC) Check glucose one to four times daily as needed 1 Each 08/09/20 Active Additional Information Patient not taking.Reported on 04/09/2024 OneTouch UltraSoft LancetsIndicatio ns:Type 2 diabetes mellitus with diabetic mononeuropathy, without long-term current use of insulin (HCC) Check glucose one to four times daily as needed 100 Each 11 08/09/20 Active Additional Information Patient not taking.Reported on 04/09/2024 OneTouch Ultra Blue In Vitro Strip (Glucose Blood)Indication s:Type 2 diabetes mellitus with diabetic mononeuropathy, without long-term current use of insulin ([facility]) Check glucose one to four times daily as needed 100 Strip 11 08/09/20 Active Additional Information Patient not taking.Reported on 04/09/2024 Hema Patterson DevIndications:T ype 2 diabetes mellitus with diabetic mononeuropathy, without long-term current use of insulin ([facility]) Check glucose one to four times daily as needed 1 Each 08/09/20 Active Additional Information Patient not taking.Reported on 04/09/2024 Ketoconazole 2 % External Shampoo (Nizoral) Lather into scalp for 5 minutes. Rinse over body and then wash off. Do this 3-4 times per week 120 mL 11 09/19/20 Active Additional Information Patient not taking.Reported on 04/09/2024 Ketoconazole 2 % External CreamIndications :Tinea corporis Apply topically to affected area 2 times a day. 90 g 5 09/26/20 23 Active Additional Information Patient not taking.Reported on 04/09/2024 Aspirin 81 MG Oral Tablet Delayed Release (Aspirin Low Dose)Indications :History of embolic stroke Take 1 Tablet by mouth in the morning. 30 Tablet 11 09/26/20 23 Active Additional Information Patient not taking.Reported on 01/05/2024 PARoxetine HCl 30 MG Oral Tablet (Paxil) take 1 tablet by mouth IN THE MORNING 30 Tablet 11 10/31/19 24 Active Ondansetron HCl 4 MG Oral Tablet Take 1 Tablet by mouth every 8 hours as needed for Nausea. 20 Tablet 2 12/06/19 24 Active Pen [place] 32G X 4 MMIndications:Ty pe 2 diabetes mellitus with diabetic mononeuropathy, without long-term current use of insulin ([facility]) Use as directed. 360 Each 3 12/13/19 24 Active Nicotine 14 MG/24HR Transdermal Patch 24 Hour (Nicoderm CQ)Indications:O ther tobacco product nicotine dependence, uncomplicated Place 1 Patch over 24 hours topically on the skin daily. 28 Patch 2 01/05/20 24 Active hydrOXYzine HCl 25 MG Oral TabletIndication s:Panic attacks Take 1 Tablet by mouth every 6 hours as needed for Anxiety. 10 Tablet 1 04/09/20 24 Active ARIPiprazole 5 MG Oral Tablet (Abilify)Indicat ions:Bipolar affective disorder, remission status unspecified ([facility]) TAKE ONE TABLET BY MOUTH EVERY MORNING 30 Tablet 5 05/07/20 24 Active Dexcom G7 SensorIndication s:Type 2 diabetes mellitus with diabetic mononeuropathy, without long-term current use of insulin ([facility]) APPLY ONE SENSOR TO THE SKIN FOR 10 DAYS. AFTER 10 DAYS, REMOVE THE OLD SENSOR AND APPLY NEW SENSOR 3 Each 5 05/13/20 24 Active Nicotine 21 MG/24HR Transdermal Patch 24 Hour (Nicoderm CQ)Indications:O ther tobacco product nicotine dependence, uncomplicated Place 1 Patch topically on the skin daily. 28 Patch 3 06/22/20 24 Active Insulin Aspart FlexPen 100 UNIT/ML Subcutaneous Solution Pen-injectorIndi cations:Type 2 diabetes mellitus with diabetic mononeuropathy, without long-term current use of insulin ([facility]) INJECT 8 UNITS under the skin with heavy breakfast, 5 units light lunch, 8 units heavy dinner 15 mL 2 10/05/20 24 Active Insulin Glargine Solostar 100 UNIT/ML Subcutaneous Solution Pen-injector (Lantus SoloStar)Indicat ions:Type 2 diabetes mellitus with diabetic mononeuropathy, without long-term current use of insulin ([facility]) INJECT 24 UNITS UNDER THE SKIN IN THE MORNING 15 mL 2 10/05/20 24 Active Losartan Potassium 50 MG Oral Tablet (Cozaar) TAKE ONE TABLET BY MOUTH EVERY MORNING 90 Tablet 2 10/19/20 24 Active Pantoprazole Sodium 40 MG Oral Tablet Delayed Release (Protonix) TAKE ONE TABLET BY MOUTH EVERY MORNING 90 Tablet 2 10/19/20 24 Active Losartan Potassium 50 MG Oral Tablet (Cozaar) TAKE ONE TABLET BY MOUTH EVERY MORNING 30 Tablet 5 03/21/20 24 2023 Discontinued Pantoprazole Sodium 40 MG Oral Tablet Delayed Release (Protonix) TAKE ONE TABLET BY MOUTH EVERY MORNING 30 Tablet 5 04/18/20 24 2023 Discontinued documented as of this encounter (statuses as of 10/19/2024) Active Problems Problem Noted Date Diagnosed Date Type 2 diabetes mellitus with diabetic mononeuro paulo 01/05/2024 Benign prostatic hyperplasia with lower urinary tract symptoms 01/05/2024 Alcohol dependence in remission 01/05/2024 Food insecurity 01/02/2024 Overview: Per [facility] Protocol PFO (patent foramen ovale) 12/06/2023 Abnormal echocardiogram 12/06/2023 BPH with obstruction/lower urinary tract symptom s 08/12/2023 Essential (primary) hypertension 08/12/2023 Well adult exam 07/03/2023 Overview (12/06/2023): 12/17 TTE [facility]--normal EF +Gr II stanley dys. 07/16 TTE: normal EF--large size septal, anteroseptal, inferior wall abnormality with hypokinesis to akinesis of the segments. There is a small size anteroseptal scar. No significant valvular disease. There is a small [id number] intra atrial shunt--small PFO 04/15 Zio- + SVT eps. Brief. Warthin's tumor 02/21/2023 Overview (04/11/2023): 02/16/23 FNA. To ENT. Bipolar disorder 06/23/2022 Type 2 diabetes mellitus wit h diabetic mononeuropathy, without long-term current use of insulin 06/23/2022 Personal history of alcoholism 06/23/2022 documented as of this encounter (statuses as of 10/19/2024) Immunizations Name Administration Dates Next Due COVID-19 mRNA, LNP-s, No Pre serve, 2-Dose Series (Moderna) 02/23/2021,01/19/2021 COVID-19, MRNA-LNP, PF, 30 M CG/0.3 mL, 12 YRS AND ABOVE, IM (PFIZER-Comirnat) 08/04/2023 COVID-19, mRNA, LNP-s, PF, B ooster, 100mcg/0.5mg (Moderna) 05/10/2022,09/11/2021 Covid-19, Mrna, Lnp-s, Pf, B ivalent, 30 Mcg, IM, 12 yrs and above (RedLasso) 07/19/2022 DTaP Dipth/Tet/Acell Pertussis (Infanrix), Peds 03/11/2005 Pneumococcal Conjugate Vaccine, 20-valent (Prevn ar20) 06/24/2023 Pneumococcal Polysaccharide PPV23 (Pneumovax) ,07/10/2010 Seasonal Influenza, PF, 6 M & above, IM , (FluLaval or Fluzone) 06/24/2023,08/09/2022 Seasonal Influenza, Trivalent, (IIV3), PF, (Fluz one) 2024 TDAP (age 10 and older)(Boostrix) 06/24/2023 Zoster Vaccine Recombinant (Shingrix) 08/21/2022 ,05/10/2022 documented as of this encounter Social History Tobacco Use Types Packs/Day Years Used Date Smoking Tobacco: Former Cigarettes 0.5 41 S tarted: 1983 Pipe Smokeless Tobacco: Never Comments:nicotine gum, pouch es Quit Nov 2022 Alcohol Use Standard Drinks/Week Comments Not Currently 0 (1 standard drink = 0.6 oz pure alcohol) quit years ago. hx alcoholism. Hunger Vital Sign Answer Date Recorded Within the past 12 months, y ou worried that your food would run out before you got the money to buy more. Sometimes true Within the past 12 months, t he food you bought just didn't last and you didn't have money to get more. Sometimes true Childcare Answer Date Recorded Do you feel overwhelmed with taking care of a child, family member or friend? No 12/08/2023 Does your family need help f inding childcare? (Household - for ages 0-17 years) Not on file 12/08/2023 Clothing Answer Date Recorded Have you been unable to get clothing when it was really needed? No 12/08/2023 Is your family able to get c lothes or diapers when needed? (Household - for ages 0-17 years) Not on file 12/08/2023 Personal Safety Answer Date Recorded Do you feel unsafe or have concerns for your saf ety? No 12/08/2023 Do you have concerns for you r family's safety? (Household - for ages 0-17 years) Not on file 12/08/2023 Utilities Answer Date Recorded Do you have trouble paying y our heating, water, or electric bill? No 12/08/2023 Is your family able to pay t he heat, water, or electric bill? (Household - for ages 0-17 years) Not on file 12/08/2023 Does your family have access to good internet? (Household - for ages 0-17 years) Not on file 12/08/2023 Employment Status Answer Date Recorded Are you unemployed or without regular income? Ye s 12/08/2023 Does the household have a re gular source of income? (Household - for ages 0-17 years) Not on file 12/08/2023 Social Connections Answer Date Recorded How often do you feel lonely or isolated from th ose around you? Never 12/08/2023 Financial Resource Strain Answer Date R ecorded Do you have any trouble payi ng for your medications, or do you think you might in the future? No 12/08/2023 Does your family have troubl e paying for medicine? (Household - for ages 0-17 years) Not on file 12/08/2023 Transportation Needs Answer Date Record ed READ ONLY Do you have troubl e getting a ride to medical visits or work? Never True 12/08/2023 Does your family have a hard time getting a ride to doctors visits? (Household - for ages 0-17 years) Not on file 12/08/2023 Has lack of transportation k ept you from medical appointments, meetings, work, or from getting things needed for daily living? Check all that apply. (Adult - for ages 18 years and over) Not on file 12/08/2023 Do you (or your family) have trouble finding or paying for a ride (transportation)? (Household - for ages 0-17 years) Not on file 12/08/2023 Housing Stability Answer Date Recorded Do you currently live in a s helter or have no steady place to sleep at night? No 12/08/2023 READ ONLY Do you think you a re at risk of becoming homeless? No 12/08/2023 Does your family worry about paying for your home or becoming homeless? (Household - for ages 0-17 years) Not on file 0 12/08/2023 Are you homeless or worried that you might be in the future? (Adult - for ages 18 years and over) Not on file Are you (or your family) rayshawn eless or worried that you might be in the future? (Household - for ages 0-17 years) Not on file Food Insecurity Answer Date Recorded Do you need food for this week? No 12/08/2023 Are you able to get enough f ood for your family? (Household - for ages 0-17 years) Not on file 12/08/2023 Does your family need food t his week? (Household - for ages 0-17 years) Not on file 12/08/2023 Do you always have enough fo od for your family? (Household - for ages 0-17 years) Not on file 12/08/2023 Sex and Gender Information Value Date Recorded Sex Assigned at Not on file Legal Sex Male 9:02 AM EDT Gender Identity Not on file Sexual Orientation Not on file Occupation Industry Job Start Date Job End Date [employer]. different shifts. Not on file Not o n file Not on file documented as of this encounter Miscellaneous Notes * Telephone Encounter - Patsy Palm RPh - 10/19/2024 9:56 AM ESTSigned Prescriptions: Disp Refills Losartan Potassium 50 MG Oral Tablet (Coza*90 Tab*2 Sig: TAKE ONE TABLET BY MOUTH EVERY MORNINGAuthorizing Provider: ALPHONSO CARMONA User: PATSY PALM Pantoprazole Sodium 40 MG Oral Tablet Adamaris*90 Tab*2 Sig: TAKE ONE TABLET BY MOUTH EVERY MORNI NGAuthorizing Provider: ALPHONSO CARMONA User: PATSY PALM documented in this encounter Plan of Treatment Upcoming Encounters Date Type Department Care Team (Late st Contact Info) Description 11/30/2024 8:45 AM EST Imaging Radiology [facility] [address] [place] [id number] 12/14/2024 9:30 AM EST Office Visit Otolaryngology [facility] [address] [place] [address] Kendall Armstrong DO [address] [place] [address] Health Maintenance Due Date Last Done Comments Cologuard 2012 Colonoscopy 2012 Sigmoidoscopy 2012 Colorectal Cancer Screening 03/28/2024 Fecal Occult Blood Test 03/28/2024 03/28/2023 COVID-19 Vaccine ( season) 2024 08/04/2023, 07/19/2022, 05/10/2022, Additional history exists HbA1c 01/13/2025 2024, 05/0 05/2024, 11/09/2023, Additional history exists Albumin/Creatinine Ratio 02/28/2025 024, 02/25/2023, 12/30/2022, Additional history exists Diabetic Eye Exam 2025 2024, 11/30/2022 Diabetic Foot Exam 2025 2024, 08/09/2022 GFR 2025 2024, 05/0 05/2024, 11/09/2023, Additional history exists Lipid Panel 02/28/2029 02/29/2024, 05/0 02/2023, 06/25/2022 DTap/Tdap Vaccines (3 - Td or Tdap) 06/24/2033 06/24/2023, 03/11/2005 Zoster Vaccines Completed 08/21/2022, 05/10/2022 Pneumococcal Vaccine: 50+ Years Completed 06/24/2023, 05/10/2022, 07/10/2010 Influenza Vaccine (FLU shot) Completed 2024, 06/24/2023, 08/09/2022 HPV (Gardasil) Vaccine Aged Out No lo nger eligible based on patient's age to complete this topic Hepatitis B Vaccine Discontinued MENINGOCOCCAL (MENACTRA/MENVEO) Aged Out No longer eligible based on patient's age to complete this topic documented as of this encounter Medical Devices Not on filedocumented as of this encounter Care Teams Service Desk Specialist Relationship Specialty Start Date End Date Alphonso Carmona MD [address] [place] [address] PCP - General Family Medicine 06/23/22 documented as of this encounter
--- OUTSIDE RECORDS SUMMARY | 2024-11-13 19:35 | External Medical Summary | Summary of Care ---
Author Name Unknown Organization [facility] Address [address] [place] [address] Phone [phone] Care Team Providers Care Patient Access Coordinator Name Role Phone Alphonso Carmona MD Primary Care Provider + Reason for Visit * Reason Comments eRx-Medication Refill Encounter Details Date Type Department Care Team (Late st Contact Info) Description 10/04/2024 Refill Pharmacy, [facility] [address] [facility] [place] [address] Alphonso Carmona MD [address] [facility] [address] Type 2 diabetes mellitus with diabetic mononeuropathy, without long-term current use of insulin (HCC) Allergies No known active allergiesdocumented as of this encounter (statuses as of 10/05/2024) Medications OneTouch Ultra 2 w/Device KitIndications:T ype [...] Information Patient not taking.Reported on 04/09/2024 OneTouch Alexander Lancing DevIndications:T ype 2 diabetes mellitus with [...] 20 Tablet 2 12/06/19 24 Active Pen [place] 32G X 4 MMIndications:Ty pe 2 diabetes mellitus with diabetic mononeuropathy, without long-term current use of insulin ([facility]) Use as directed. 360 Each 3 12/13/19 24 Active Nicotine 14 MG/24HR Transdermal Patch 24 Hour (Nicoderm CQ)Indications:O ther tobacco product nicotine dependence, uncomplicated Place 1 Patch over 24 hours topically on the skin daily. 28 Patch 2 01/05/20 24 Active Losartan Potassium 50 MG Oral Tablet (Cozaar) TAKE ONE TABLET BY MOUTH EVERY MORNING 30 Tablet 5 03/21/20 24 Active hydrOXYzine HCl 25 MG Oral TabletIndication s:Panic attacks Take 1 Tablet by mouth every 6 hours as needed for Anxiety. 10 Tablet 1 04/09/20 24 Active Pantoprazole Sodium 40 MG Oral Tablet Delayed Release (Protonix) TAKE ONE TABLET BY MOUTH EVERY MORNING 30 Tablet 5 04/18/20 24 Active ARIPiprazole 5 MG Oral Tablet (Abilify)Indicat ions:Bipolar affective disorder, remission status unspecified (HCC) TAKE ONE TABLET BY MOUTH EVERY MORNING 30 Tablet 5 05/07/20 24 Active Dexcom G7 SensorIndication s:Type 2 diabetes mellitus with diabetic mononeuropathy, without long-term current use of insulin (HCC) APPLY ONE SENSOR TO THE SKIN FOR [...] without long-term current use of insulin (HCC) INJECT 8 UNITS under the skin with heavy breakfast, 5 units light lunch, 8 units heavy dinner 15 mL 2 10/05/20 24 Active Insulin Glargine Solostar 100 UNIT/ML Subcutaneous Solution Pen-injector (Lantus SoloStar)Indicat ions:Type 2 diabetes mellitus with diabetic mononeuropathy, without long-term current use of insulin (HCC) INJECT 24 UNITS UNDER THE SKIN IN THE MORNING 15 mL 2 10/05/20 24 Active NovoLOG FlexPen 100 UNIT/ML Subcutaneous Solution Pen-injector (insulin aspart)Indicatio ns:Type 2 diabetes mellitus with diabetic mononeuropathy, without long-term current use of insulin (HCC) Inject 5 units under the skin with lunch and 8 units with dinner 15 mL 2 01/03/20 24 2023 Discontinued Insulin Glargine 100 UNIT/ML Subcutaneous Solution Pen-injector (Lantus)Indicati ons:Type 2 diabetes mellitus with diabetic mononeuropathy, without long-term current use of insulin (HCC) Inject 23 Units under the skin in the morning. 15 mL 2 04/11/20 24 2023 Discontinued documented as of this encounter (statuses as of 10/05/2024) Active Problems Problem Noted Date Diagnosed Date Type 2 diabetes mellitus with diabetic mononeuro paulo 01/05/2024 Benign prostatic hyperplasia with lower urinary tract symptoms 01/05/2024 Alcohol dependence in remission 01/05/2024 Food insecurity 01/02/2024 Overview: Per [facility] Protocol PFO (patent foramen ovale) 12/06/2023 Abnormal echocardiogram 12/06/2023 BPH with obstruction/lower urinary tract symptom s 08/12/2023 Essential (primary) hypertension 08/12/2023 Well adult exam 07/03/2023 Overview (12/06/2023): 12/17 TTE [facility]--normal EF +Gr II stanley dys. 07/16 TTE: normal EF--large size septal, anteroseptal, inferior wall abnormality with hypokinesis to akinesis of the segments. There is a small size anteroseptal scar. No significant valvular disease. There is a small [id number] intra atrial shunt--small PFO 04/15 Zio- + SVT eps. Brief. Warthin's tumor 02/21/2023 Overview (04/11/2023): 02/16/23 FNA. To ENT. Bipolar disorder 06/23/2022 Type 2 diabetes mellitus wit h diabetic mononeuropathy, without long-term current use of insulin 06/23/2022 Personal history of alcoholism 06/23/2022 documented as of this encounter (statuses as of 10/05/2024) Immunizations Name Administration Dates Next Due COVID-19 mRNA, LNP-s, No Pre serve, 2-Dose Series (Moderna) 02/23/2021,01/19/2021 COVID-19, MRNA-LNP, PF, 30 M CG/0.3 mL, 12 YRS AND ABOVE, IM ([place]) 08/04/2023 COVID-19, mRNA, LNP-s, PF, B ooster, [...] Used Date Smoking Tobacco: Former Cigarettes 0.5 40.9 S tarted: 1984 Pipe Smokeless Tobacco: Never [...] encounter Miscellaneous Notes * Telephone Encounter - Deion Salazar RPh - 10/05/2024 7:42 AM ESTSigned Prescriptions: Disp Refills Insulin Aspart FlexPen 100 UNIT/ML Subcuta*15 mL 2 Sig: INJECT 8UNITS under the skin with heavy breakfast, 5 units light lunch, 8 units heavy dinnerAuthorizing Provider: ALPHONSO CARMONA User: DEION SALAZAR Insulin Glargine Solostar 100 UNIT/ML Subc*15 mL 2 Sig: INJECT 24 UNITS UNDER THE SKIN IN THE MORNINGAuthorizing Provider: ALPHONSO CARMONA User: DEION SALAZAR documented in this encounter Plan of Treatment Upcoming Encounters Date Type Department Care Team (Late st Contact Info) Description 11/01/2024 6:10 PM EST Pharmacy Pharmacy, [facility] [address] [place] [address] [facility] [place] [address] 11/30/2024 8:45 AM EST Imaging [facility] [place] [address] 12/14/2024 9:30 AM EST Office Visit [facility] [place] [address] Kendall Armstrong, [address] [place] [address] Health Maintenance Due Date Last Done Comments Cologuard 2012 Colonoscopy 2012 Sigmoidoscopy 2012 Colorectal Cancer Screening 03/28/2024 Fecal Occult Blood Test 03/28/2024 03/28/2023 COVID-19 Vaccine ( season) 2024 08/04/2023, 07/19/2022, 05/10/2022, Additional history exists HbA1c 01/13/2025 2024, 05/0 05/2024, 11/09/2023, Additional history exists Albumin/Creatinine Ratio 02/28/2025 052 024, 02/25/2023, 12/30/2022, Additional history exists Diabetic Eye Exam 2025 2024, 11/30/2022 Diabetic Foot Exam 2025 2024, 08/09/2022 GFR 2025 2024, 05/0 05/2024, 11/09/2023, Additional history exists Lipid Panel 02/28/2029 02/29/2024, 05/0 02/2023, 06/25/2022 DTap/Tdap Vaccines (3 - Td or Tdap) 06/24/2033 06/24/2023, 03/11/2005 Zoster Vaccines Completed 08/21/2022, 05/10/2022 Pneumococcal Vaccine: Pediatrics (0 to 5 Years) and At-Risk Patients (6 to 64 Years) Completed 06/24/2023, 05/10/2022, 07/10/2010 Influenza Vaccine (FLU [...] documented in this encounter Care Teams Patient Access Coordinator Relationship Specialty Start Date End Date Alphonso Carmona MD [address] [place] [address] PCP - General Family Medicine 06/23/22 documented as of this encounter
--- OUTSIDE RECORDS SUMMARY | 2024-11-13 19:36 | External Medical Summary | Summary of Care ---
Author Name Unknown Organization [facility] Address [address] [place] [address] Phone [phone] Care Team Providers Care Director Enterprise Systems Name Role Phone Rob Chisholm MD Primary Care Provider + Reason for Visit * Reason Comments Dosage Adjustment Via Phone (anticoag Cl inic) Encounter Details Date Type Department Care Team (Late st Contact Info) Description 09/10/2024 6:10 PM [facility] Pharmacy, [facility] [address] [place] [address] [facility] [address] [place] [address] Type 2 diabetes mellitus with hemoglobin A1c goal of less than 8.0% ([facility])* Allergies No known active allergiesdocumented as of this encounter (statuses as of 09/07/2024) Medications OneTouch Ultra 2 w/Device KitIndications:Ty pe 2 diabetes mellitus with diabetic mononeuropathy, without long-term current use of insulin (HCC) Check glucose one to four times daily as needed 1 Each 2 Active Additional Information Patient not taking.Reported on 04/09/2024 OneTouch UltraSoft LancetsIndication s:Type 2 diabetes mellitus with diabetic mononeuropathy, without long-term current use of insulin (HCC) Check glucose one to four times daily as needed 100 Each 11 2 Active Additional Information Patient not taking.Reported on 04/09/2024 OneTouch Ultra Blue In Vitro Strip (Glucose Blood)Indications :Type 2 diabetes mellitus with diabetic mononeuropathy, without long-term current use of insulin ([facility]) Check glucose one to four times daily as needed 100 Strip 11 2 Active Additional Information Patient not taking.Reported on 04/09/2024 Hema Munoz Lancing DevIndications:Ty pe 2 diabetes mellitus with diabetic mononeuropathy, without long-term current use of insulin ([facility]) Check glucose one to four times daily as needed 1 Each 2 Active Additional Information Patient not taking.Reported on 04/09/2024 Ketoconazole 2 % External Shampoo (Nizoral) Lather into scalp for 5 minutes. Rinse over body and then wash off. Do this 3-4 times per week 120 mL 11 3 Active Additional Information Patient not taking.Reported on 04/09/2024 Ketoconazole 2 % External CreamIndications: Tinea corporis Apply topically to affected area 2 times a day. 90 g 5 3 Active Additional Information Patient not taking.Reported on 04/09/2024 Aspirin 81 MG Oral Tablet Delayed Release (Aspirin Low Dose)Indications: History of embolic stroke Take 1 Tablet by mouth in the morning. 30 Tablet 11 3 Active Additional Information Patient not taking.Reported on 01/05/2024 PARoxetine HCl 30 MG Oral Tablet (Paxil) take 1 tablet by mouth IN THE MORNING 30 Tablet 11 4 Active Ondansetron HCl 4 MG Oral Tablet Take 1 Tablet by mouth every 8 hours as needed for Nausea. 20 Tablet 2 4 Active Pen [place] 32G X 4 MMIndications:Typ e 2 diabetes mellitus with diabetic mononeuropathy, without long-term current use of insulin ([facility]) Use as directed. 360 Each 3 4 Active NovoLOG FlexPen 100 UNIT/ML Subcutaneous Solution Pen-injector (insulin aspart)Indication s:Type 2 diabetes mellitus with diabetic mononeuropathy, without long-term current use of insulin ([facility]) Inject 5 units under the skin with lunch and 8 units with dinner 15 mL 2 4 Active Nicotine 14 MG/24HR Transdermal Patch 24 Hour (Nicoderm CQ)Indications:Ot her tobacco product nicotine dependence, uncomplicated Place 1 Patch over 24 hours topically on the skin daily. 28 Patch 2 4 Active Losartan Potassium 50 MG Oral Tablet (Cozaar) TAKE ONE TABLET BY MOUTH EVERY MORNING 30 Tablet 5 4 Active hydrOXYzine HCl 25 MG Oral TabletIndications :Panic attacks Take 1 Tablet by mouth every 6 hours as needed for Anxiety. 10 Tablet 1 4 Active Insulin Glargine 100 UNIT/ML Subcutaneous Solution Pen-injector (Lantus)Indicatio ns:Type 2 diabetes mellitus with diabetic mononeuropathy, without long-term current use of insulin ([facility]) Inject 23 Units under the skin in the morning. 15 mL 2 4 Active Pantoprazole Sodium 40 MG Oral Tablet Delayed Release (Protonix) TAKE ONE TABLET BY MOUTH EVERY MORNING 30 Tablet 5 4 Active ARIPiprazole 5 MG Oral Tablet (Abilify)Indicati ons:Bipolar affective disorder, remission status unspecified (HCC) TAKE ONE TABLET BY MOUTH EVERY MORNING 30 Tablet 5 4 Active Dexcom G7 SensorIndications :Type 2 diabetes mellitus with diabetic mononeuropathy, without long-term current use of insulin (HCC) APPLY ONE SENSOR TO THE SKIN FOR 10 DAYS. AFTER 10 DAYS, REMOVE THE OLD SENSOR AND APPLY NEW SENSOR 3 Each 5 4 Active Nicotine 21 MG/24HR Transdermal Patch 24 Hour (Nicoderm CQ)Indications:Ot her tobacco product nicotine dependence, uncomplicated Place 1 Patch topically on the skin daily. 28 Patch 3 4 Active documented as of this encounter (statuses as of 09/07/2024) Active Problems Problem Noted Date Diagnosed Date Type 2 diabetes mellitus with diabetic mononeuro paulo 01/05/2024 Benign prostatic hyperplasia with lower urinary tract symptoms 01/05/2024 Alcohol dependence in remission 01/05/2024 Food insecurity 01/02/2024 Overview: Per [facility] Protocol PFO (patent foramen ovale) 12/06/2023 Abnormal echocardiogram 12/06/2023 BPH with obstruction/lower urinary tract symptom s 08/12/2023 Essential (primary) hypertension 08/12/2023 Well adult exam 07/03/2023 Overview (12/06/2023): 12/17 TTE [facility]--normal EF +Gr II stanley dys. 07/16 TTE: normal EF--large size septal, anteroseptal, inferior wall abnormality with hypokinesis to akinesis of the segments. There is a small size anteroseptal scar. No significant valvular disease. There is a small yoptw-ji-qirs intra atrial shunt--small PFO 04/15 Zio- + SVT eps. Brief. Warthin's tumor 02/21/2023 Overview (04/11/2023): 02/16/23 FNA. To ENT. Bipolar disorder 06/23/2022 Type 2 diabetes mellitus wit h diabetic mononeuropathy, without long-term current use of insulin 06/23/2022 Personal history of alcoholism 06/23/2022 documented as of this encounter (statuses as of 09/07/2024) Immunizations Name Administration Dates Next Due COVID-19 mRNA, LNP-s, No Pre serve, 2-Dose Series (Moderna) 02/23/2021,01/19/2021 COVID-19, MRNA-LNP, PF, 30 M CG/0.3 mL, 12 YRS AND ABOVE, IM ([employer]) 08/04/2023 COVID-19, mRNA, LNP-s, PF, B ooster, 100mcg/0.5mg (Moderna) 05/10/2022,09/11/2021 Covid-19, Mrna, Lnp-s, Pf, B ivalent, 30 Mcg, IM, 12 yrs and above ([employer]) 07/19/2022 DTaP Dipth/Tet/Acell Pertussis (Infanrix), Peds 03/11/2005 [...] as of this encounter Progress Notes * Tasneem Thomason CPhT - 09/07/2024 3:50 PM EST Patient Phone Numbers Left message on patients answering machine to schedule [facility] appointment for DM management. BigM[employer] message sent --n Clinic will follow up again in 4 week(s). [Attempt # 2] Thank you, Tasneem Thomason CPhT Staff Educator II [facility] ([facility]) 09/07/2024,3:50 PM documented in this encounter Plan of Treatment Upcoming Encounters Date Type Department Care Team (Late st Contact Info) Description 10/04/2024 6:10 PM EST [facility] [address] [place] [address] [place], [facility] [place] [address] [address] [place] [address] 11/30/2024 8:45 AM EST [facility] [address] [place] [address] 12/14/2024 9:30 AM EST Office Visit Otolaryngology [facility] [address] [place] [address] Kendall Armstrong, [address] [address] Health Maintenance Due Date Last Done Comments [...] Diagnoses Diagnosis Type 2 diabetes mellitus with hemoglobin A1c goal of less than 8.0% (HCC)- Primary documented in this encounter Care Teams Director [employer] Systems Relationship Specialty Start Date End Date Rob Chisholm MD [address] [place] [place] [address] PCP - General Family Medicine 06/23/22 documented as of this encounter
--- OUTSIDE RECORDS SUMMARY | 2024-11-13 19:36 | External Medical Summary | Summary of Care ---
Author Name Unknown Organization [facility] Address [address] [place] [address] Phone [phone] Care Team Providers Care Land Surveyor Manager Name Role Phone Rob Chisholm MD Primary Care Provider + Reason for Visit * Reason Onset Date Comments Scan To Read 2024 Encounter Details Date Type Department Care Team (Late st Contact Info) Description 2024 Telephone Family Practice [facility] [address] [facility] [place] [id number] Rob Chisholm MD [address] [place] [address] Scan To Read Allergies No known active allergiesdocumented as of this encounter (statuses as of 07/18/2024) Medications Medication Sig Dispensed Refills Start Date End Date Status OneTouch Ultra 2 w/Device KitIndications:Type 2 diabetes mellitus with diabetic mononeuropathy, without long-term current use of insulin (HCC) Check glucose one to four times daily as needed 1 Each 08/09/2022 Active Additional Information Patient not taking.Reported on 04/09/2024 OneTouch UltraSoft LancetsIndications:T ype 2 diabetes mellitus [...] Patient not taking.Reported on 04/09/2024 Hema Patterson DevIndications:Type 2 diabetes mellitus with diabetic mononeuropathy, without long-term current use of insulin ([facility]) Check glucose one to four times daily as needed 1 Each 08/09/2022 Active Additional Information Patient not taking.Reported on 04/09/2024 Ketoconazole 2 % External Shampoo (Nizoral) Lather into scalp for 5 minutes. Rinse over body and then wash off. Do this 3-4 times per week 120 mL 11 09/19/2023 Active Additional Information Patient not taking.Reported on 04/09/2024 Ketoconazole 2 % External CreamIndications:Tin ea corporis Apply topically to affected area 2 times a day. 90 g 5 09/26/2023 Active Additional Information Patient not taking.Reported on 04/09/2024 Aspirin 81 MG Oral Tablet Delayed Release (Aspirin Low Dose)Indications:His tory of embolic stroke Take 1 Tablet by mouth in the morning. 30 Tablet 11 09/26/2023 Active Additional Information Patient not taking.Reported on 01/05/2024 PARoxetine HCl 30 MG Oral Tablet (Paxil) take 1 tablet by mouth IN THE MORNING 30 Tablet 11 10/31/2023 Active Ondansetron HCl 4 MG Oral Tablet Take 1 Tablet by mouth every 8 hours as needed for Nausea. 20 Tablet 2 12/06/2023 Active Pen [place] 32G X 4 MMIndications:Type 2 diabetes mellitus with diabetic mononeuropathy, without long-term current use of insulin ([facility]) Use as directed. 360 Each 3 12/13/2023 Active NovoLOG FlexPen 100 UNIT/ML Subcutaneous Solution Pen-injector (insulin aspart)Indications:T ype 2 diabetes mellitus with diabetic mononeuropathy, without long-term current use of insulin ([facility]) Inject 5 units under the skin with lunch and 8 units with dinner 15 mL 2 01/03/2024 Active Nicotine 14 MG/24HR Transdermal Patch 24 Hour (Nicoderm CQ)Indications:Other tobacco product nicotine dependence, uncomplicated Place 1 Patch over 24 hours topically on the skin daily. 28 Patch 2 01/05/2024 Active Losartan Potassium 50 MG Oral Tablet (Cozaar) TAKE ONE TABLET BY MOUTH EVERY MORNING 30 Tablet 5 03/21/2024 Active hydrOXYzine HCl 25 MG Oral TabletIndications:Pa karis attacks Take 1 Tablet by mouth every 6 hours as needed for Anxiety. 10 Tablet 1 04/09/2024 Active Insulin Glargine 100 UNIT/ML Subcutaneous Solution Pen-injector (Lantus)Indications: Type 2 diabetes mellitus with diabetic mononeuropathy, without long-term current use of insulin ([facility]) Inject 23 Units under the skin in the morning. 15 mL 2 04/11/2024 Active Pantoprazole Sodium 40 MG Oral Tablet Delayed Release (Protonix) TAKE ONE TABLET BY MOUTH EVERY MORNING 30 Tablet 5 04/18/2024 Active ARIPiprazole 5 MG Oral Tablet (Abilify)Indications :Bipolar affective disorder, remission status unspecified (HCC) TAKE ONE TABLET BY MOUTH EVERY MORNING 30 Tablet 5 05/07/2024 Active Dexcom G7 SensorIndications:Ty pe 2 diabetes mellitus with diabetic mononeuropathy, without long-term current use of insulin ([facility]) APPLY ONE SENSOR TO THE SKIN FOR 10 DAYS. AFTER 10 DAYS, REMOVE THE OLD SENSOR AND APPLY NEW SENSOR 3 Each 5 05/13/2024 Active Nicotine 21 MG/24HR Transdermal Patch 24 Hour (Nicoderm CQ)Indications:Other tobacco product nicotine dependence, uncomplicated Place 1 Patch topically on the skin daily. 28 Patch 3 06/22/2024 Active documented as of this encounter (statuses as of 07/18/2024) Active Problems Problem Noted Date Diagnosed Date Type 2 diabetes mellitus with diabetic mononeuro paulo 01/05/2024 Benign prostatic hyperplasia with lower urinary tract symptoms 01/05/2024 Alcohol dependence in remission 01/05/2024 Food insecurity 01/02/2024 Overview: Per [facility] Protocol PFO (patent foramen ovale) 12/06/2023 Abnormal echocardiogram 12/06/2023 BPH with obstruction/lower urinary tract symptom s 08/12/2023 Essential (primary) hypertension 08/12/2023 Well adult exam 07/03/2023 Overview: 12/17 TTE [facility]--normal EF +Gr II stanley dys. 9/23 TTE: normal EF--large size septal, anteroseptal, inferior wall abnormality with hypokinesis to akinesis of the segments. There is a small size anteroseptal scar. No significant valvular disease. There is a small qvzuw-uz-trea intra atrial shunt--small PFO 04/15 Zio- + SVT eps. Brief. 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 To ENT. Bipolar disorder 06/23/2022 Type 2 diabetes mellitus wit h diabetic mononeuropathy, without long-term current use of insulin 06/23/2022 Personal history of alcoholism 06/23/2022 documented as of this encounter (statuses as of 07/18/2024) Immunizations Name Administration Dates Next Due COVID-19 mRNA, LNP-s, No Pre serve, 2-Dose Series (Moderna) 02/23/2021,01/19/2021 COVID-19, MRNA-LNP, 23-24, P F, 30 MCG/0.3 mL, 12 YRS AND ABOVE, IM ([facility]) 08/04/2023 COVID-19, mRNA, LNP-s, PF, [...] Used Date Smoking Tobacco: Former Cigarettes 0.5 40.7 S tarted: 1984 Pipe Smokeless Tobacco: Never [...] Miscellaneous Notes * Telephone Encounter - Rob Tariq MD - 07/18/2024 7:09 AM EDT Retinal Scan Imaging Román Garcia [id number] Retinal Scan Interpretation: The images are not able to be interpreted. Diabetes Retinal Imaging Care Plan: The retinal scan results are uninterpretable - I will forward this encounter to the Ophthalmology DM Letter Pool [[id number]], they will send an unreadable retinal scan letter to the patient. I will forward this encounter to the ordering provider. Patient prefers to be seen at [facility] for follow-up evaluation. This encounter will be sent to Ophthalmology scheduling services, please schedule the patient within 3 months. Rob Tariq MD 07/18/2024 7:09 AM * Telephone Encounter - Donna Moncada LPN - 2024 1:15 PM EDT A Diabetic Telemed Eye image was taken and requires your interpretation for Dr Correa. Please check your inbasket for image. Patient prefers to be seen at [facility] if a follow-up appointment is needed. documented in this encounter Plan of Treatment Upcoming Encounters Date Type Department Care Team (Late st Contact Info) Description 08/22/2024 9:30 AM EDT [facility] [address] [address] [place] [facility] [address] [address] 11/30/2024 8:45 AM EST Imaging Radiology [facility] [address] [place] [address] 12/14/2024 9:30 AM EST Office Visit Otolaryngology [facility] [address] [place] [address] Kendall Armstrong DO [address] [place] [address] Health Maintenance Due Date Last Done Comments [...] filedocumented as of this encounter Care Teams Land Surveyor Manager Relationship Specialty Start Date End Date Rob Chisholm MD [address] [place] [address] PCP - General Family Medicine 06/23/22 documented as of this encounter
--- OUTSIDE RECORDS SUMMARY | 2024-11-13 19:36 | External Medical Summary ---
Author Name Unknown Address Unknown Organization K01:[facility] - [address] [place] [address] Laboratory Report Ordering Provider Test Date Status KRISTINE WERNER 2024 09:32:45 Final Observation Date Value Abnormality Reference (Units ) Status PSA 2024 09:32:45 2.57 <3.10 (ng/ mL) Final Performing Location [facility] - [address] [place] [address]
--- OUTSIDE RECORDS SUMMARY | 2024-11-13 19:36 | External Medical Summary | Summary of Care ---
Author Name Unknown Organization [facility] Address [address] [place] [address] Phone [phone] Care Team Providers Care Veterinary Bacteriologist Name Role Phone Rob Chisholm MD Primary Care Provider + Reason for Visit * Reason Comments Appointment Encounter Details Date Type Department Care Team (Late st Contact Info) Description 10/04/2024 6:10 PM [facility] Pharmacy Pharmacy, [facility] [address] [place] [address] [facility] [address] [place] [address] Type 2 diabetes mellitus with hemoglobin A1c goal of less than 8.0% ([facility])* Allergies No known active allergiesdocumented as of this encounter (statuses as of 10/04/2024) Medications OneTouch Ultra 2 w/Device KitIndications:Ty pe [...] Patient not taking.Reported on 04/09/2024 Hema Patterson DevIndications:Ty pe 2 diabetes mellitus with diabetic [...] Nausea. 20 Tablet 2 4 Active Pen [place] 32G X 4 MMIndications:Typ e 2 diabetes mellitus with diabetic mononeuropathy, without long-term current use of insulin ([facility]) Use as directed. 360 Each 3 4 Active NovoLOG FlexPen 100 UNIT/ML Subcutaneous Solution Pen-injector (insulin aspart)Indication s:Type 2 diabetes mellitus with diabetic mononeuropathy, without long-term current use of insulin ([facility]) Inject 5 units under the skin with [...] as of this encounter (statuses as of 10/04/2024) Active Problems Problem Noted Date Diagnosed Date Type 2 diabetes mellitus with diabetic mononeuro paulo 01/05/2024 Benign prostatic hyperplasia with lower urinary tract symptoms 01/05/2024 Alcohol dependence in remission 01/05/2024 Food insecurity 01/02/2024 Overview: Per [facility] Protocol PFO (patent foramen ovale) 12/06/2023 Abnormal echocardiogram 12/06/2023 BPH with obstruction/lower urinary tract symptom s 08/12/2023 Essential (primary) hypertension 08/12/2023 Well adult exam 07/03/2023 Overview (12/06/2023): 12/17 TTE [facility]--normal EF +Gr II stanley dys. 07/16 TTE: normal EF--large size septal, anteroseptal, inferior wall abnormality with hypokinesis to akinesis of the segments. There is a small size anteroseptal scar. No significant valvular disease. There is a small ipxci-jl-jiqf intra atrial shunt--small PFO 04/15 Zio- + SVT eps. Brief. Warthin's tumor 02/21/2023 Overview (04/11/2023): 02/16/23 FNA. To ENT. Bipolar disorder 06/23/2022 Type 2 diabetes mellitus wit h diabetic mononeuropathy, without long-term current use of insulin 06/23/2022 Personal history of alcoholism 06/23/2022 documented as of this encounter (statuses as of 10/04/2024) Immunizations Name Administration Dates Next Due COVID-19 mRNA, LNP-s, No Pre serve, 2-Dose Series (Moderna) 02/23/2021,01/19/2021 COVID-19, MRNA-LNP, PF, 30 M CG/0.3 mL, 12 YRS AND ABOVE, IM ([facility]) 08/04/2023 COVID-19, mRNA, LNP-s, PF, B ooster, 100mcg/0.5mg (Moderna) 05/10/2022,09/11/2021 Covid-19, Mrna, Lnp-s, Pf, B ivalent, 30 Mcg, IM, 12 yrs and above ([employer]) 07/19/2022 DTaP Dipth/Tet/Acell Pertussis (Infanrix), Peds 03/11/2005 [...] as of this encounter Progress Notes * Fina Wilson PHARM Tech - 10/04/2024 8:59 AM EST Patient Phone Numbers Left message on patients answering machine to schedule [facility] appointment for diabetes management. [employer] message sent --N/A Clinic will follow up again in 3-4 week(s). [Attempt # 3] Thank you, Fina Wilson Merchandising Lead [facility] ([facility]) 10/04/2024 8:59 AM documented in this encounter Plan of Treatment Upcoming Encounters Date Type Department Care Team (Late st Contact Info) Description 11/01/2024 6:10 PM EST Pharmacy Pharmacy, [facility] [address] [address] [place], [facility] [address] [place] [address] 11/30/2024 8:45 AM EST Imaging Radiology [facility] [address] [place] [address] 12/14/2024 9:30 AM EST Office Visit Otolaryngology [facility] [address] [place] [address] Kendall Armstrong DO [address] [place] [address] Health Maintenance Due Date Last Done Comments [...] Primary documented in this encounter Care Teams Veterinary Bacteriologist Relationship Specialty Start Date End Date Rob Chisholm MD [address] [place] [address] PCP - General Family Medicine 06/23/22 documented as of this encounter
--- OUTSIDE RECORDS SUMMARY | 2024-11-13 19:36 | External Medical Summary | Summary of Care ---
Author Name Unknown Organization [facility] Address [address] [place] [address] Phone [phone] Care Team Providers Care Treasury Specialist Name Role Phone Rob Chisholm MD Primary Care Provider + Reason for Referral * Evaluate & Treat - Unlimited Visits (Within 30 days (routine)) - Pending Review Specialty Diagnoses / Procedures Referred By Curtis alcantara Referred To Contact Oral/Maxillofacial Surgery / Dentistry Diagnoses Tooth pain Rob Chisholm MD [address] [facility] [id number] Referral ID Status Reason Start Date Expiration Date Visits Requested Visits Authorized [id number] Pending Review Specialty Services Required [phone] Question Answer Referral Priority Within 30 days (routine) Where should this appointment be scheduled? [facility] Do you have pain at the present time? Yes - cracked tooth? Do you have any swelling? No Reason for Visit * Reason Onset Date Comments Physical-Exam Yearly physical Medication Administration 2024 Flu an d/or Pneumo Inj Encounter Details Date Type Department Care Team (Latest Contact Info) Description 2024 8:40 AM EDT Office Visit Family Practice [facility] [address] [place] [id number] Rob Chisholm MD [address] [place] [id number] Well adult exam*; Need for prophylactic vaccination and inoculation against influenza; Type 2 diabetes mellitus with diabetic mononeuropathy, without long-term current use of insulin ([facility]); Hypercalcemia; Screening for prostate cancer; Tooth pain; Bipolar affective disorder, remission status unspecified ([facility]); Essential (primary) hypertension; Alcohol dependence in remission ([facility]); Screen for colon cancer; Type 2 diabetes mellitus with diabetic mononeuropathy ([facility]); DM type 2 nursing care encounter ([facility]) Allergies No known active allergiesdocumented as of this encounter (statuses as of 2024) Medications Medication Sig Dispensed Refills Start Date End Date Status OneTouch Ultra 2 w/Device KitIndications:Type 2 diabetes mellitus with diabetic mononeuropathy, without long-term current use of insulin ([facility]) Check glucose one to four times daily as needed 1 Each 08/09/2022 Active Additional Information Patient not taking.Reported on 04/09/2024 Agile SystemsTouch UltraSoft LancetsIndications:T ype 2 diabetes mellitus with diabetic mononeuropathy, without long-term current use of insulin ([facility]) Check glucose one to four times daily as needed 100 Each 11 08/09/2022 Active Additional Information Patient not taking.Reported on 04/09/2024 OneTouch Ultra Blue In Vitro Strip (Glucose Blood)Indications:Ty pe 2 diabetes mellitus with diabetic mononeuropathy, without long-term current use of insulin ([facility]) Check glucose one to four times daily as needed 100 Strip 11 08/09/2022 Active Additional Information Patient not taking.Reported on 04/09/2024 Agile SystemsTouch Delica Lancing DevIndications:Type 2 diabetes mellitus with diabetic mononeuropathy, without long-term current use of insulin ([facility]) Check glucose one to four times [...] Nausea. 20 Tablet 2 12/06/2023 Active Pen [place] 32G X 4 MMIndications:Type 2 diabetes mellitus with diabetic mononeuropathy, without long-term current use of insulin ([facility]) Use as directed. 360 Each 3 12/13/2023 Active NovoLOG FlexPen 100 UNIT/ML Subcutaneous Solution Pen-injector (insulin aspart)Indications:T ype 2 diabetes mellitus with diabetic mononeuropathy, without long-term current use of insulin ([facility]) Inject 5 units under the skin with [...] long-term current use of insulin ([facility]) Inject 23 Units under the skin in [...] as of this encounter (statuses as of 2024) Active Problems Problem Noted Date Diagnosed Date Type 2 diabetes mellitus with diabetic mononeuro paulo 01/05/2024 Benign prostatic hyperplasia with lower urinary tract symptoms 01/05/2024 Alcohol dependence in remission 01/05/2024 Food insecurity 01/02/2024 Overview: Per [facility] Protocol PFO (patent foramen ovale) 12/06/2023 Abnormal echocardiogram 12/06/2023 BPH with obstruction/lower urinary tract symptom s 08/12/2023 Essential (primary) hypertension 08/12/2023 Well adult exam 07/03/2023 Overview: 12/17 TTE [facility]--normal EF +Gr II stanley dys. 07/16 TTE: normal EF--large size septal, anteroseptal, inferior wall abnormality with hypokinesis to akinesis of the segments. There is a small size anteroseptal scar. No significant valvular disease. There is a small uvjml-bh-xtml intra atrial shunt--small PFO 04/15 Zio- + SVT eps. Brief. 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 To ENT. Bipolar disorder 06/23/2022 Type 2 diabetes mellitus wit h diabetic mononeuropathy, without long-term current use of insulin 06/23/2022 Personal history of alcoholism 06/23/2022 documented as of this encounter (statuses as of 2024) Immunizations Name Administration Dates Next Due COVID-19 [...] S tarted: 1984 Pipe Smokeless Tobacco: Never Tobacco Cessation:Counseling Given: [...] Sign Reading Time Taken Comments Blood Pressure 132/76 2024 8:46 AM EDT Pulse 100 2024 8:46 AM EDT Temperature 36.2 C (97.2 F) 2024 8:46 AM ED T Respiratory Rate 99 2024 8:46 AM EDT Oxygen Saturation - - Inhaled Oxygen Concentration - - Weight 76 kg (167 lb 9.6 oz) 2024 8:46 AM EDT Height 172.7 cm (5' 8") 2024 8:46 AM EDT Body Mass Index 25.48 2024 8:46 AM EDT documented in this encounter Patient Instructions * Patient Instructions* Tessie Salazar LPN - 2024 9:29 AM EDT Images from the original note were not included. Diabetic Retinopathy: Evaluating Your Eyes Diabetic retinopathy is a condition that happens when diabetes damages blood vessels in the rear ofthe eye. It can lead to vision loss. To help catch it early, have a complete dilated eye exam at least once a year. During the exam, the eye healthcare provider will review your medical history, examine your eyes, and check your vision. Women who are and have pre-existing type 1 or type 2 diabetes have an increased risk of retinopathy. Women with diabetes should have an eye exam before or in the first trimester. They should continue to be monitored every trimester and for 1 year after delivery, depending on the severity of the retinopathy. The retina is the light-sensitive part of the eye that allows you to see. High blood sugar can damage blood vessels of the retina and cause them to leak or bleed. This damage can lead to abnormal blood vessel growth. This condition is called diabetic retinopathy. You may not have symptoms early in the disease. Later, there may be floaters, blurred vision, or poor night vision. There may also be partial or complete vision loss. Early cases of diabetic retinopathy can be treated by carefully controlling blood sugar, blood pressure, and cholesterol. Surgery or laser treatments may help restore lost vision. Laser surgery can shrink abnormal blood vessels or close ones that are leaking. Medicines injected in the eye can help decrease swelling of the retina. Home care Take all medicines, including insulin or oral diabetic medicine, exactly as prescribed. Follow the diet advised by your healthcare provider. If you have high cholesterol, follow a low-fat, low-cholesterol diet. Monitor blood sugars as advised. Try to achieve your ideal weight. If you smoke, quit smoking. Tobacco use worsens the effect of diabetes on your blood vessels. If you have high blood pressure, consider buying an automatic blood pressure machine. These are available at most pharmacies. Use this to monitor your blood pressure. Report your blood pressure readings to your healthcare provider. Exercise regularly. Follow-up care Follow up with your healthcare provider, or as advised. You must have a complete eye exam at least once a year, more often if needed. Untreated diabetic retinopathy can lead to complete loss of vision. Occupational therapists can help you adapt to any vision loss you have, including learning techniques to safely administer insulin. When to seek medical advice Call your healthcare provider right away if any of these occur. Increasing blurriness or any sudden changes in your vision Sudden flashes of light inside your eye New floaters (small dots or strings that seem to be moving across your field of vision) Eye pain, redness, or discharge from your eyelid New dark spots appearing in your field of vision Halos around lights Dimness of vision Partial or complete loss of vision Women with diabetes should have a complete eye exam before becoming , or as soon as possible when they find out they are . Retinopathy sometimes worsens during . Your eye exam Your eye healthcare provider uses an eye chart and other tools to check your vision. Then he or sheexamines your eyes for signs of disease. You are given eye drops to widen (dilate) your pupils. Youmay have one or more of the following tests: Tonometry to measure fluid pressure inside the eye. Slit lamp exam to allow the healthcare provider to view the structures of your eye. Ultrasound to create an image of the eye using sound waves. Ultrasound may be used if blood is found in the clear gel that fills the eye (vitreous). Ocular coherence tomography (OCT) to create an image of the retina using light waves. This shows ifthere is fluid leaking into certain parts of the eye. It can also measure the thickness of the retina. Fluorescein angiography This test may be done to check the health of the inside lining of the eye (retina). It also checks the tiny blood vessels (capillaries) that carry blood to the retina. During the test: Photographs are taken of the retina. A dye is then injected into the bloodstream through the arm or hand. The dye travels to the capillaries in the eye. More photographs are taken of the retina. The dye causes the capillaries to stand out on the photographs. You may feel brief nausea during the procedure. For a few hours after the test, your skin, eyes, and urine may appear yellow. Talk with your healthcare provider for more information about this test. Date Last Reviewed: 03/24/201619997459-9093 [employer]. [address] [place] [address], [place] [address]. All rights reserved. This information is not intended as a substitute for professional medical care. Always follow your healthcare professional's instructions. documented in this encounter Progress Notes * Tessie Salazar LPN - 2024 9:29 AM EDT Images from the original note were not included. The importance of having a yearly diabetic eye exam has been discussed with patient. Order and/or Referral placed along with patient instructions. Provider made aware. Tessie Salazar LPN The importance of having a yearly diabetic eye exam has been discussed with patient. Order and/or Referral placed along with patient instructions. Provider made aware. Tessie Salazar LPN Diabetic Retinopathy: Evaluating Your Eyes Diabetic retinopathy is a condition that happens when diabetes damages blood vessels in the rear ofthe eye. It can lead to vision loss. To help catch it early, have a complete dilated eye exam at least once a year. During the exam, the eye healthcare provider will review your medical history, examine your eyes, and check your vision. Women who are and have pre-existing type 1 or type 2 diabetes have an increased risk of retinopathy. Women with diabetes should have an eye exam before or in the first trimester. They should continue to be monitored every trimester and for 1 year after delivery, depending on the severity of the retinopathy. The retina is the light-sensitive part of the eye that allows you to see. High blood sugar can damage blood vessels of the retina and cause them to leak or bleed. This damage can lead to abnormal blood vessel growth. This condition is called diabetic retinopathy. You may not have symptoms early in the disease. Later, there may be floaters, blurred vision, or poor night vision. There may also be partial or complete vision loss. Early cases of diabetic retinopathy can be treated by carefully controlling blood sugar, blood pressure, and cholesterol. Surgery or laser treatments may help restore lost vision. Laser surgery can shrink abnormal blood vessels or close ones that are leaking. Medicines injected in the eye can help decrease swelling of the retina. Home care Take all medicines, including insulin or oral diabetic medicine, exactly as prescribed. Follow the diet advised by your healthcare provider. If you have high cholesterol, follow a low-fat, low-cholesterol diet. Monitor blood sugars as advised. Try to achieve your ideal weight. If you smoke, quit smoking. Tobacco use worsens the effect of diabetes on your blood vessels. If you have high blood pressure, consider buying an automatic blood pressure machine. These are available at most pharmacies. Use this to monitor your blood pressure. Report your blood pressure readings to your healthcare provider. Exercise regularly. Follow-up care Follow up with your healthcare provider, or as advised. You must have a complete eye exam at least once a year, more often if needed. Untreated diabetic retinopathy can lead to complete loss of vision. Occupational therapists can help you adapt to any vision loss you have, including learning techniques to safely administer insulin. When to seek medical advice Call your healthcare provider right away if any of these occur. Increasing blurriness or any sudden changes in your vision Sudden flashes of light inside your eye New floaters (small dots or strings that seem to be moving across your field of vision) Eye pain, redness, or discharge from your eyelid New dark spots appearing in your field of vision Halos around lights Dimness of vision Partial or complete loss of vision Women with diabetes should have a complete eye exam before becoming , or as soon as possible when they find out they are . Retinopathy sometimes worsens during . Your eye exam Your eye healthcare provider uses an eye chart and other tools to check your vision. Then he or sheexamines your eyes for signs of disease. You are given eye drops to widen (dilate) your pupils. Youmay have one or more of the following tests: Tonometry to measure fluid pressure inside the eye. Slit lamp exam to allow the healthcare provider to view the structures of your eye. Ultrasound to create an image of the eye using sound waves. Ultrasound may be used if blood is found in the clear gel that fills the eye (vitreous). Ocular coherence tomography (OCT) to create an image of the retina using light waves. This shows ifthere is fluid leaking into certain parts of the eye. It can also measure the thickness of the retina. Fluorescein angiography This test may be done to check the health of the inside lining of the eye (retina). It also checks the tiny blood vessels (capillaries) that carry blood to the retina. During the test: Photographs are taken of the retina. A dye is then injected into the bloodstream through the arm or hand. The dye travels to the capillaries in the eye. More photographs are taken of the retina. The dye causes the capillaries to stand out on the photographs. You may feel brief nausea during the procedure. For a few hours after the test, your skin, eyes, and urine may appear yellow. Talk with your healthcare provider for more information about this test. Date Last Reviewed: 03/24/201619998033-8227 [employer]. [address] [place] [id number]. All rights reserved. This information is not intended as a substitute for professional medical care. Always follow your healthcare professional's instructions. * Tessie Salazar LPN - 2024 9:26 AM EDT Socks and Shoes Removed for Annual Diabetic Foot Screening RIGHT FOOT: No Reddened, Cracking, Or Open Areas Noted. RIGHT Dorsalis Pedis Pulse: Palpable RIGHT Posterior Tibial Pulse: Palpable RIGHT Monofilament:Patient reports feeling monofilament pressure on plantar surface of foot LEFT FOOT: No Reddened, Cracking or Open Areas Noted. LEFT Dorsalis Pedis Pulse: Palpable LEFT Posterior Tibial Pulse: Palpable LEFT Monofilament:Patient reports feeling monofilament pressure on plantar surface of foot Do you need diabetic shoes: No * Rob Chisholm MD - 2024 9:17 AM EDT SUBJECTIVE: Román Garcia is a 59 year old male here for Physical-Exam (Yearly physical ) and Medication Administration (Flu and/or Pneumo Inj) . Here for CPE Doing well overall except for ongoing fatigue after working 5 hours or so. Has to limit his shifts. No polyuria/dipsia. Apprec MTM, psychiatry Ms. Lee recently left [facility]--needs new psychiatrist. Mood stable on meds No fever, chills, chest pain, shortness of breath, headache, nausea, vomit, diarrhea, constipation or vision changes Thinks cracked right upper rear molar about 1 mo ago, sensitive. ROS: Negative except above. Past Medical History: Diagnosis Date Abnormal echocardiogram 12/06/2023 DM type 2, goal HbA1c < 8% ([facility]) External hemorrhoid PFO (patent foramen ovale) 12/06/2023 Plantar wart severe Type 2 diabetes mellitus with diabetic mononeuropathy, without long-term current use of insulin ([facility]) 06/23/2022 Warthin's tumor 02/21/2023 02/16/23 FNA. Past Surgical History: Procedure Laterality Date IR BIOPSY 02/15/2023 TN TONSILLECTOMY & ADENOIDECTOMY LESS THAN AGE 14 1972 Social History Socioeconomic History Marital status: Single Spouse name: Not on file Number of children: Not on file Years of education: Not on file Highest education level: Not on file Occupational History Occupation: [employer]. different shifts. Tobacco Use Smoking status: Former Current packs/day: 0.50 Average packs/day: 0.5 packs/day for 40.7 years (20.4 ttl pk-yrs) Types: Pipe, Cigarettes Start date: 1983 Smokeless tobacco: Never Tobacco comments: nicotine gum, pouches Quit Nov 2022 Substance and Sexual Activity Alcohol use: Not Currently Comment: quit years ago. hx alcoholism. Drug use: Yes Types: Marijuana Sexual activity: Not Currently Comment: '. 3 adult kids. no grandkids Other Topics Concern Not on file Social History Narrative Movies, read, pray, meditate. Social Determinants of Health Financial Resource Strain: Low Risk (12/08/2023) Financial Resource Strain Do you have any trouble paying for your medications, or do you think you might in the future? (Adult - for ages 18 years and over): No Does your family have trouble paying for medicine? (Household - for ages 0-17 years): Not on file Food Insecurity: No Food Insecurity (12/08/2023) Food Insecurity Do you need food for this week? (Adult - for ages 18 years and over): No Are you able to get enough food for your family? (Household - for ages 0-17 years): Not on file Does your family need food this week? (Household - for ages 0-17 years): Not on file Do you always have enough food for your family? (Household - for ages 0-17 years): Not on file Recent Concern: Food Insecurity - Food Insecurity Present (12/08/2023) Hunger Vital Sign Worried About Running Out of Food in the Last Year: Sometimes true Ran Out of Food in the Last Year: Sometimes true Transportation Needs: No Transportation Needs (12/08/2023) Transportation Needs Do you have trouble getting a ride to medical visits or work? (Adult - for ages 18 years and over):Never True Does your family have a hard time getting a ride to doctors visits? (Household - for ages 0-17 years): Not on file Has lack of transportation kept you from medical appointments, meetings, work, or from getting things needed for daily living? Check all that apply. (Adult - for ages 18 years and over): Not on file Do you (or your family) have trouble finding or paying for a ride (transportation)? (Household - for ages 0-17 years): Not on file Social Connections: Socially Integrated (12/08/2023) Social Connections How often do you feel lonely or isolated from those around you? (Adult - for ages 18 years and over): Never Housing Stability: Low Risk (12/08/2023) Housing Stability Do you currently live in a fci or have no steady place to sleep at night? (Adult - for ages 18 years and over): No Do you think you are at risk of becoming homeless? (Adult - for ages 18 years and over): No Does your family worry about paying for your home or becoming homeless? (Household - for ages 0-17 years): Not on file Are you homeless or worried that you might be in the future? (Adult - for ages 18 years and over): Not on file Are you (or your family) homeless or worried that you might be in the future? (Household - for ages0-17 years): Not on file Family History Problem Relation Name Age of Onset Uterine cancer Mother Kidney cancer Father 11/14. Hypertension Sister Lung cancer Grandfather (Maternal) Current Outpatient Medications Medication Sig Dispense Refill OneTouch Ultra 2 w/Device Kit Check glucose one to four times daily as needed (Patient not taking: Reported on 04/09/2024) 1 Each 0 OneTouch UltraSoft Lancets Check glucose one to four times daily as needed (Patient not taking: Reported on 04/09/2024) 100 Each 11 OneTouch Ultra Blue In Vitro Strip (Glucose Blood) Check glucose one to four times daily as needed (Patient not taking: Reported on 04/09/2024) 100 Strip 11 OneTouch Delica Lancing Dev Check glucose one to four times daily as needed (Patient not taking: Reported on 04/09/2024) 1 Each 0 Ketoconazole 2 % External Shampoo (Nizoral) Lather into scalp for 5 minutes. Rinse over body and then wash off. Do this 3-4 times per week (Patient not taking: Reported on 04/09/2024) 120 mL 11 Ketoconazole 2 % External Cream Apply topically to affected area 2 times a day. (Patient not taking: Reported on 04/09/2024) 90 g 5 Aspirin 81 MG Oral Tablet Delayed Release (Aspirin Low Dose) Take 1 Tablet by mouth in the morning.(Patient not taking: Reported on 01/05/2024) 30 Tablet 11 PARoxetine HCl 30 MG Oral Tablet (Paxil) take 1 tablet by mouth IN THE MORNING 30 Tablet 11 Ondansetron HCl 4 MG Oral Tablet Take 1 Tablet by mouth every 8 hours as needed for Nausea. 20 Tablet 2 Pen [place] 32G X 4 MM Use as directed. 360 Each 3 NovoLOG FlexPen 100 UNIT/ML Subcutaneous Solution Pen-injector (insulin aspart) Inject 5 units under the skin with lunch and 8 units with dinner 15 mL 2 Nicotine 14 MG/24HR Transdermal Patch 24 Hour (Nicoderm CQ) Place 1 Patch over 24 hours topically on the skin daily. 28 Patch 2 Losartan Potassium 50 MG Oral Tablet (Cozaar) TAKE ONE TABLET BY MOUTH EVERY MORNING 30 Tablet 5 hydrOXYzine HCl 25 MG Oral Tablet Take 1 Tablet by mouth every 6 hours as needed for Anxiety. 10 Tablet 1 Insulin Glargine 100 UNIT/ML Subcutaneous Solution Pen-injector (Lantus) Inject 23 Units under the skin in the morning. 15 mL 2 Pantoprazole Sodium 40 MG Oral Tablet Delayed Release (Protonix) TAKE ONE TABLET BY MOUTH EVERY MORNING 30 Tablet 5 ARIPiprazole 5 MG Oral Tablet (Abilify) TAKE ONE TABLET BY MOUTH EVERY MORNING 30 Tablet 5 Dexcom G7 Sensor APPLY ONE SENSOR TO THE SKIN FOR 10 DAYS. AFTER 10 DAYS, REMOVE THE OLD SENSOR ANDAPPLY NEW SENSOR 3 Each 5 Nicotine 21 MG/24HR Transdermal Patch 24 Hour (Nicoderm CQ) Place 1 Patch topically on the skin daily. 28 Patch 3 No current facility-administered medications for this visit. Physical: BP 132/76 | Pulse 100 | Temp 36.2 C (97.2 F) (Tympanic) | Resp 99 | Ht 1.727 m (5' 8") | Wt 76 kg (167 lb 9.6 oz) | BMI 25.48 kg/m | BSA 1.91 m General-No apparent Distress Head, Eyes, Ears, Nose, Throat--Normocephalic, atraumatic ?cavity vs crack right upper rear molar Neck-Supple Lymph-no lymphadenopathy Lungs-Clear to Auscultation bilaterally Cardiovascular--Regular rate & Rhythm, +s1, s2, no murmur Abdomen-soft, nontender, nondistended + bowel sounds Extremities--no edema Neuro-alert & oriented x3 (Z00.00) Well adult exam (primary encounter diagnosis) Plan: counseled on diet/exercise PSA ordered FOB ordered--declined scope/cologuard COVID shot at pharmacy Flu today (Z23) Need for prophylactic vaccination and inoculation against influenza Plan: INFLUENZA VAC, TRIVALENT, (IIV3), PF, 0.5 ML (FLUZONE) (E11.41) Type 2 diabetes mellitus with diabetic mononeuropathy, without long- term current use of insulin (HCC) Plan: BASIC METABOLIC PANEL, HEMOGLOBIN A1C Cont mgmt (E83.52) Hypercalcemia Plan: BASIC METABOLIC PANEL Suspect error (Z12.5) Screening for prostate cancer Plan: PSA (K08.89) Tooth pain Plan: DENTAL MEDICINE & SURG REFERRAL OP (F31.9) Bipolar affective disorder, remission status unspecified (HCC) Plan: cont mgmt Psychiatry scheduling info # given (I10) Essential (primary) hypertension Plan: cont mgmt (F10.21) Alcohol dependence in remission (HCC) Plan: doing well cont mgmt (This note was completed using the dictation program Fluency Direct. As such, there may be misspellings, word substitutions, or other variations that should not change the essence of the clinical content of this encounter note.If there is need for further clarification, please direct questions to the provider listed above.) Rob Chisholm MD * Tessie Salazar LPN - 2024 8:58 AM EDT Patient has been verbally educated on the need or importance of Diabetic Eye Exam and has declined topic(s). * Tessie Salazar LPN - 2024 8:52 AM EDT PRE - ADMINISTRATION DOCUMENTATION Are you experiencing any cold symptoms or fever? No Have you had Guillain-Turner Syndrome (an illness that causes paralysis) within the last 6 weeks? No Have you had the flu shot in the past? YES Have you ever had a reaction to the flu shot? No Tessie Salazar LPN, 2024 8:52 AM Immunization Administration Documentation Time Out Procedure Performed: Yes Patient Identified (Ask Name/Date of ): Yes Does the patient have a fever greater than 101 degrees today? No Patient allergic to latex? No VFC Stock: No Immunization(s) verified: Yes, Immunization Name: Flu, VIS Sheet(s) given: Yes Verified Side and Site: Yes Verified Shot(s) with Parent(s)/Patient: Yes documented in this encounter Nursing Notes * Tessie Salazar LPN - 2024 8:46 AM EDT The patient has been properly identified by confirmation of name and date of . Chief Complaint Patient presents with Physical-Exam Yearly physical documented in this encounter Miscellaneous Notes * Addendum Note - Tessie Salazar LPN - 2024 9:29 AM EDTAddended by: TESSIE SALAZAR on: 2024 09:29 AM Modules accepted: Orders documented in this encounter Plan of Treatment Upcoming Encounters Date Type Department Care Team (Late st Contact Info) Description 2024 9:40 AM EDT Laboratory Laboratory, [facility] [address] [place] [phone] [facility] [address] [place] [address] Screening for prostate cancer; Type 2 diabetes mellitus with diabetic mononeuropathy, without long-term current use of insulin (HCC); Hypercalcemia 08/22/2024 9:30 AM EDT Office Visit Pharmacy, [facility] [address] [facility] [place] [address] [facility] [address] [facility] [place] [address] 11/30/2024 8:45 AM EST Imaging Radiology [facility] [address] [facility] [place] [address] 12/14/2024 9:30 AM EST Office Visit Otolaryngology [facility] [address] [facility] [place] [address] Kendall Armstrong DO [address] [place] [address] Pending Results Name Type Priority Associated Diagnoses Date /Time PSA Lab Routine Screening for prostate cancer 2024 9:32 AM EDT BASIC METABOLIC PANEL Lab Routine Type 2 diabetes mellitus with diabetic mononeuropathy, without long-term current use of insulin (HCC) Hypercalcemia 2024 9:32 AM EDT HEMOGLOBIN A1C Lab Routine Type 2 diabetes mellitus with diabetic mononeuropathy, without long-term current use of insulin (HCC) 2024 9:32 AM EDT Scheduled Orders Name Type Priority Associated Diagnoses Orde r Schedule PSA Lab Routine Screening for prostate cancer Expected: 2024 (Approximate), Expires: 2025 BASIC METABOLIC PANEL Lab Routine Type 2 diabetes mellitus with diabetic mononeuropathy, without long-term current use of insulin (HCC) Hypercalcemia Expected: 2024 (Approximate), Expires: 2025 HEMOGLOBIN A1C Lab Routine Type 2 diabetes mellitus with diabetic mononeuropathy, without long-term current use of insulin (HCC) Expected: 2024 (Approximate), Expires: 2025 FECAL OCCULT BLOOD, EIA Lab Routine Screen for colon cancer Expected: 2024 (Approximate), Expires: 2025 Scheduled Referrals Name Type Priority Associated Diagnoses Orde r Schedule DENTAL MEDICINE & SURG REFERRAL OP Referral Within 30 days (routine) Tooth pain Ordered: 2024 Health Maintenance Due Date Last Done Comments Cologuard 2012 Colonoscopy 2012 Sigmoidoscopy 2012 Diabetic Eye Exam 11/30/2023 11/30/2022 Colorectal Cancer Screening 03/28/2024 Fecal Occult Blood Test 03/28/2024 03/28/2023 COVID-19 Vaccine ( season) 2024 08/04/2023, 07/19/2022, 05/10/2022, Additional history exists HbA1c 08/31/2024 02/29/2024, 10/24, 10/31/2023, Additional history exists Albumin/Creatinine Ratio 02/28/2025 05 024, 02/25/2023, 12/30/2022, Additional history exists GFR 02/28/2025 02/29/2024, 10/24, 10/31/2023, Additional history exists Diabetic Foot Exam 2025 2024, 08/09/2022 Lipid Panel 02/28/2029 02/29/2024, 05/0 02/2023, 06/25/2022 [...] as of this encounter Visit Diagnoses Diagnosis Well adult exam- Primary Routine general medical examination at a health care facility Need for prophylactic vaccination and inoculation against influenza Type 2 diabetes mellitus with diabetic mononeuropathy, without long-term current use of insulin (HCC) Hypercalcemia Screening for prostate cancer Special screening for malignant neoplasm of prostate Tooth pain Unspecified disorder of the teeth and supporting structures Bipolar affective disorder, remission status unspecified (HCC) Essential (primary) hypertension Unspecified essential hypertension Alcohol dependence in remission (HCC) Other and unspecified alcohol dependence, in remission Screen for colon cancer Special screening for malignant neoplasms, colon Type 2 diabetes mellitus with diabetic mononeuropathy (HCC) Type II or unspecified type diabetes mellitus with neurological manifestations, not stated as uncontrolled DM type 2 nursing care encounter (HCC) Type II or unspecified type diabetes mellitus without mention of complication, not stated as uncontrolled Screening for prostate cancer Special screening for malignant neoplasm of prostate Type 2 diabetes mellitus with diabetic mononeuropathy, without long-term current use of insulin (HCC) Hypercalcemia documented in this encounter Care Teams Treasury Specialist Relationship Specialty Start Date End Date Rob Chisholm MD [address] [place] [address] PCP - General Family Medicine 06/23/22 documented as of this encounter
--- OUTSIDE RECORDS SUMMARY | 2024-11-13 19:36 | External Medical Summary | Summary of Care ---
Author Name Unknown Organization [facility] Address [address] [place] [address] Phone [phone] Care Team Providers Care Gas Singer Name Role Phone Rob Chisholm MD Primary Care Provider + Reason for Visit * Reason Onset Date Comments Medication Question 06/22/2024 Encounter Details Date Type Department Care Team (Late st Contact Info) Description 06/22/2024 Telephone Family Practice [facility] [address] [facility] [place] [address] Rob Chisholm MD [address] [place] [facility] [place] [address] Medication Question Allergies No known active allergiesdocumented as of this encounter (statuses as of 06/22/2024) Medications Medication Sig Dispensed Refills Start Date End Date Status OneTouch Ultra 2 w/Device KitIndications:Type 2 diabetes mellitus with diabetic mononeuropathy, without long-term current use of insulin (HCC) Check glucose one to four times daily as needed 1 Each 08/09/2022 Active Additional Information Patient not taking.Reported on 04/09/2024 OneTouch UltraSoft LancetsIndications: Type 2 diabetes mellitus with diabetic mononeuropathy, without long-term current use of insulin (HCC) Check glucose one to four times daily as needed 100 Each 11 08/09/2022 Active Additional Information Patient not taking.Reported on 04/09/2024 OneTouch Ultra Blue In Vitro Strip (Glucose Blood)Indications:T ype 2 diabetes mellitus with diabetic mononeuropathy, without long-term current use of insulin ([facility]) Check glucose one to four times daily as needed 100 Strip 11 08/09/2022 Active Additional Information Patient not taking.Reported on 04/09/2024 Hema Patterson DevIndications:Type 2 diabetes mellitus with diabetic mononeuropathy, without long-term current use of insulin ([facility]) Check glucose one to four times daily as needed 1 Each 08/09/2022 Active Additional Information Patient not taking.Reported on 04/09/2024 Ketoconazole 2 % External Shampoo (Nizoral) Lather into scalp for 5 minutes. Rinse over body and then wash off. Do this 3-4 times per week 120 mL 11 09/19/2023 Active Additional Information Patient not taking.Reported on 04/09/2024 Ketoconazole 2 % External CreamIndications:Ti arminda corporis [...] Nausea. 20 Tablet 2 12/06/2023 Active Pen [place] 32G X 4 MMIndications:Type 2 diabetes mellitus with diabetic mononeuropathy, without long-term current use of insulin ([facility]) Use as directed. 360 Each 3 12/13/2023 Active NovoLOG FlexPen 100 UNIT/ML Subcutaneous Solution Pen-injector (insulin aspart)Indications: Type 2 diabetes mellitus with diabetic mononeuropathy, without long-term current use of insulin ([facility]) Inject 5 units under the skin with lunch and 8 units with dinner 15 mL 2 01/03/2024 Active Nicotine 14 MG/24HR Transdermal Patch 24 Hour (Nicoderm CQ)Indications:Othe r tobacco product nicotine dependence, uncomplicated Place 1 Patch over 24 hours topically on the skin daily. 28 Patch 2 01/05/2024 Active Losartan Potassium 50 MG Oral Tablet (Cozaar) TAKE ONE TABLET BY MOUTH EVERY MORNING 30 Tablet 5 03/21/2024 Active hydrOXYzine HCl 25 MG Oral TabletIndications:P anic attacks Take 1 Tablet by mouth every 6 hours as needed for Anxiety. 10 Tablet 1 04/09/2024 Active Insulin Glargine 100 UNIT/ML Subcutaneous Solution Pen-injector (Lantus)Indications :Type 2 diabetes mellitus with diabetic mononeuropathy, without long-term current use of insulin ([facility]) Inject 23 Units under the skin in the morning. 15 mL 2 04/11/2024 Active Pantoprazole Sodium 40 MG Oral Tablet Delayed Release (Protonix) TAKE ONE TABLET BY MOUTH EVERY MORNING 30 Tablet 5 04/18/2024 Active ARIPiprazole 5 MG Oral Tablet (Abilify)Indication s:Bipolar affective disorder, remission status unspecified ([facility]) TAKE ONE TABLET BY MOUTH EVERY MORNING 30 Tablet 5 05/07/2024 Active Dexcom G7 SensorIndications:T ype 2 diabetes mellitus with diabetic mononeuropathy, without long-term current use of insulin ([facility]) APPLY ONE SENSOR TO THE SKIN FOR 10 DAYS. AFTER 10 DAYS, REMOVE THE OLD SENSOR AND APPLY NEW SENSOR 3 Each 5 05/13/2024 Active Nicotine 21 MG/24HR Transdermal Patch 24 Hour (Nicoderm CQ)Indications:Othe r tobacco product nicotine dependence, uncomplicated Place 1 Patch topically on the skin daily. 28 Patch 3 06/22/2024 Active Nicotine 21 MG/24HR Transdermal Patch 24 Hour (Nicoderm CQ)Indications:Othe r tobacco product nicotine dependence, uncomplicated PLACE 1 PATCH TOPICALLY ON THE SKIN ON THE UPPER BODY/UPPER ARM ONCE DAILY IN THE MORNING FOR 6 WEEKS 14 Patch 05/23/2024 Discontinue d(Refill) documented as of this encounter (statuses as of 06/22/2024) Active Problems Problem Noted Date Diagnosed Date Type 2 diabetes mellitus with diabetic mononeuro paulo 01/05/2024 Benign prostatic hyperplasia with lower urinary tract symptoms 01/05/2024 Alcohol dependence in remission 01/05/2024 Food insecurity 01/02/2024 Overview: Per [facility] Protocol PFO (patent foramen ovale) 12/06/2023 Abnormal echocardiogram 12/06/2023 BPH with obstruction/lower urinary tract symptom s 08/12/2023 Essential (primary) hypertension 08/12/2023 Well adult exam 07/03/2023 Overview: 12/17 TTE [facility]--normal EF +Gr II stanley dys. 07/16 TTE: normal EF--large size septal, anteroseptal, inferior wall abnormality with hypokinesis to akinesis of the segments. There is a small size anteroseptal scar. No significant valvular disease. There is a small [id number]-ffja intra atrial shunt--small PFO 04/15 Zio- + SVT eps. Brief. 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 To ENT. Bipolar disorder 06/23/2022 Type 2 diabetes mellitus wit h diabetic mononeuropathy, without long-term current use of insulin 06/23/2022 Personal history of alcoholism 06/23/2022 documented as of this encounter (statuses as of 06/22/2024) Immunizations Name Administration Dates Next Due COVID-19 mRNA, LNP-s, No Pre serve, 2-Dose Series (Moderna) 02/23/2021,01/19/2021 COVID-19, MRNA-LNP, 23-24, P F, 30 MCG/0.3 mL, 12 YRS AND ABOVE, IM ([employer]) 08/04/2023 COVID-19, mRNA, LNP-s, PF, B ooster, 100mcg/0.5mg (Moderna) 05/10/2022,09/11/2021 Covid-19, Mrna, Lnp-s, Pf, B ivalent, 30 Mcg, IM, 12 yrs and above ([employer]) 07/19/2022 DTaP Dipth/Tet/Acell Pertussis (Infanrix), Peds 03/11/2005 [...] encounter Miscellaneous Notes * Telephone Encounter - Liz Garcia MED ASSIST - 06/22/2024 2:57 PM EDT Pt informed. * Telephone Encounter - Rob Chisholm MD - 06/22/2024 1:38 PM EDT Rx sent notify pt, he can be on 28mg dose as long as he wants before tapering to step 2 dose of nicotine patch * Telephone Encounter - Pat Martines LPN - 06/22/2024 1:27 PM EDT S/w pt, definitely asking for 21mg. Asking for 28 patches instead of 14. Says its helping and he wants to stay on this dose until he is able to quit. * Telephone Encounter - Kelly De La Garza CPhT - 06/22/2024 9:21 AM EDT Pt calling in regarding the nicotine patches. Pt said he failed on step 2, and went back to step 1 and is doing fine on it. He said the last prescription he received was the 21 MG. Pt uses [facility] [id number] Please call Pt: [phone] Please advise. Thank you, Kelly De La Garza CPhT Property Worker [facility] 06/22/2024, 9:22 AM documented in this encounter Plan of Treatment Upcoming Encounters Date Type Department Care Team (Late st Contact Info) Description 2024 8:40 AM EDT Office Visit Family Practice [facility] [address] [place] [phone] Rob Chisholm MD [address] [place] [address] 08/22/2024 9:30 AM EDT Office Visit Pharmacy, [facility] [address] [facility] [place] [address] [place] [facility] [place] [address] 11/30/2024 8:45 AM EST Imaging Radiology [facility] [address] [facility] [place] [address] 12/14/2024 9:30 AM EST Office Visit Otolaryngology [facility] [address] [facility] [place] [address] Kendall Armstrong DO [address] [place] [address] Health Maintenance Due Date Last Done Comments Hepatitis B Vaccine (1 of 3 - 19+ 3-dose series) 1986 Cologuard 2012 Colonoscopy 2012 Sigmoidoscopy 2012 Diabetic Foot Exam 08/09/2023 08/09/2022 Diabetic Eye Exam 11/30/2023 11/30/2022 Colorectal Cancer Screening 03/28/2024 Fecal Occult Blood Test 03/28/2024 03/28/2023 Influenza Vaccine (FLU shot) (#1) 2024 06/24/2023, 08/09/2022 HbA1c 08/31/2024 02/29/2024, 10/24, 10/31/2023, Additional history exists Albumin/Creatinine Ratio 02/28/2025 024, 02/25/2023, 12/30/2022, Additional history exists GFR 02/28/2025 02/29/2024, 10/24, 10/31/2023, Additional history exists Lipid Panel 02/28/2029 02/29/2024, 0502/2023, 06/25/2022 DTap/Tdap Vaccines (3 - Td or Tdap) 06/24/2033 06/24/2023, 03/11/2005 Zoster Vaccines Completed 08/21/2022, 05/10/2022 Pneumococcal Vaccine: Pediatrics (0 to 5 Years) and At-Risk Patients (6 to 64 Years) Completed 06/24/2023, 05/10/2022, 07/10/2010 COVID-19 Vaccine Completed 08/04/2023, , 05/10/2022, Additional history exists HPV (Gardasil) Vaccine Aged Out No lo nger eligible based on patient's age to complete this topic MENINGOCOCCAL (MENACTRA/MENVEO) Aged Out No longer eligible based on patient's age to complete this topic documented as of this encounter Medical Devices Not on filedocumented as of this encounter Visit Diagnoses Diagnosis Other tobacco product nicotine dependence, uncomplicated documented in this encounter Care Teams Gas Singer Relationship Specialty Start Date End Date Rob Chisholm MD [address] [place] [address] PCP - General Family Medicine 06/23/22 documented as of this encounter
--- OUTSIDE RECORDS SUMMARY | 2024-11-13 19:36 | External Medical Summary ---
Author Name Unknown Address Unknown Organization K01:[facility] [place] [facility] [place] [facility] [address] Laboratory Report Ordering Provider Test Date Status KRISTINE WERNER 2024 09:32:45 Final Observation Date Value Abnormality Reference (Units ) Status HbA1C 2024 09:32:45 7.9 Above high normal 4. 0-5.6 (%) Final The use of HbA1c to monitor glycemic status is based on normal hemoglobin and HbA composition. This test should not be used in patients with abnormal hemoglobin that affects the half life of the red blood cell or the in vivo glycation rates. Glucose, estimated average 2024 09:32:45 180 Above high normal <126 (mg/dL) Mario rivas Performing Location [facility] [place] [address] [facility] [address]
--- OUTSIDE RECORDS SUMMARY | 2024-11-13 19:36 | External Medical Summary | Summary of Care ---
Author Name Unknown Organization [facility] Address [address] [place] [address] Phone [phone] Care Team Providers Care Residential Advisor Name Role Phone Rob Chisholm MD Primary Care Provider + Reason for Visit * Reason Onset Date Comments Scan To Read 2024 Encounter Details Date Type Department Care Team (Late st Contact Info) Description 2024 Telephone Family Practice [facility] [address] [facility] [place] [id number] Rob Chisholm MD [address] [address] Scan To Read Allergies No known active [...] Nausea. 20 Tablet 2 12/06/2023 Active Pen [place] 32G X 4 MMIndications:Type 2 diabetes mellitus with diabetic mononeuropathy, without long-term current use of insulin ([facility]) Use as directed. 360 Each 3 12/13/2023 Active NovoLOG FlexPen 100 UNIT/ML Subcutaneous Solution Pen-injector (insulin aspart)Indications:T ype 2 diabetes mellitus with diabetic mononeuropathy, without long-term current use of insulin ([facility]) Inject 5 units under the skin [...] of insulin ([facility]) Inject 23 Units under the skin [...] of insulin ([facility]) APPLY ONE SENSOR TO THE SKIN FOR [...] remission 01/05/2024 Food insecurity 01/02/2024 Overview: Per [facility] Protocol PFO (patent foramen ovale) 12/06/2023 Abnormal echocardiogram 12/06/2023 BPH with obstruction/lower urinary tract symptom s 08/12/2023 Essential (primary) hypertension 08/12/2023 Well adult exam 07/03/2023 Overview: 12/17 TTE [facility]--normal EF +Gr II stanley dys. 9/23 TTE: normal EF--large size septal, anteroseptal, inferior wall abnormality with hypokinesis to akinesis of the segments. There is a small size anteroseptal scar. No significant valvular disease. There is a small [id number] intra atrial shunt--small PFO 04/15 Zio- + [...] MCG/0.3 mL, 12 YRS AND ABOVE, IM ([facility]) 08/04/2023 COVID-19, mRNA, LNP-s, PF, [...] image. Patient prefers to be seen at [facility] if a follow-up appointment is needed. documented in this encounter Plan of Treatment Upcoming Encounters Date Type Department Care Team (Late st Contact Info) Description 08/22/2024 9:30 AM EDT Office Visit Pharmacy, [facility] [address] [place] [address] [facility] [address] [facility] [place] [address] 11/30/2024 8:45 AM EST Imaging Radiology [facility] [address] [place] [address] 12/14/2024 9:30 AM EST Office Visit Otolaryngology [facility] [address] [place] [address] Kendall Armstrong, [address] [place] [address] Health Maintenance Due Date Last Done Comments [...] filedocumented as of this encounter Care Teams Residential Advisor Relationship Specialty Start Date End Date Rob Chisholm MD [address] [place] [address] PCP - General Family Medicine 06/23/22 documented as of this encounter
--- OUTSIDE RECORDS SUMMARY | 2024-11-13 19:36 | External Medical Summary | Summary of Care ---
Author Name Unknown Organization [facility] Address [address] [place] [address] Phone [phone] Care Team Providers Care Competency Evaluated Nurse Aide Name Role Phone Rob Chisholm MD Primary Care Provider + Reason for Visit * Reason Onset Date Comments Information 08/06/2024 DM eye Encounter Details Date Type Department Care Team (Late st Contact Info) Description 08/06/2024 Telephone Family Practice [facility] [address] [place] [address] Rob Chisholm MD [address] [place] [address] Information (DM eye) Allergies No known active allergiesdocumented as of this encounter (statuses as of 08/06/2024) Medications Medication Sig Dispensed Refills Start Date [...] long-term current use of insulin ([facility]) Check glucose one to four times daily as needed 100 Strip 11 08/09/2022 Active Additional Information Patient not taking.Reported on 04/09/2024 Hema Patterson DevIndications:Type 2 diabetes mellitus with diabetic mononeuropathy, without long-term current use of insulin ([facility]) Check glucose one to four [...] Nausea. 20 Tablet 2 12/06/2023 Active Pen [place] 32G X 4 MMIndications:Type 2 diabetes mellitus with diabetic mononeuropathy, without long-term current use of insulin ([facility]) Use as directed. 360 Each 3 12/13/2023 Active NovoLOG FlexPen 100 UNIT/ML Subcutaneous Solution Pen-injector (insulin aspart)Indications:T ype 2 diabetes mellitus with diabetic mononeuropathy, without long-term current use of insulin ([facility]) Inject 5 units under the skin with [...] long-term current use of insulin ([facility]) Inject 23 Units under the skin in [...] long-term current use of insulin ([facility]) APPLY ONE SENSOR TO THE SKIN FOR 10 DAYS. AFTER 10 DAYS, REMOVE THE OLD SENSOR AND APPLY NEW SENSOR 3 Each 5 05/13/2024 Active Nicotine 21 MG/24HR Transdermal Patch 24 Hour (Nicoderm CQ)Indications:Other tobacco product nicotine dependence, uncomplicated Place 1 Patch topically on the skin daily. 28 Patch 3 06/22/2024 Active documented as of this encounter (statuses as of 08/06/2024) Active Problems Problem Noted Date Diagnosed Date Type 2 diabetes mellitus with diabetic mononeuro paulo 01/05/2024 Benign prostatic hyperplasia with lower urinary tract symptoms 01/05/2024 Alcohol dependence in remission 01/05/2024 Food insecurity 01/02/2024 Overview: Per [facility] Protocol PFO (patent foramen ovale) 12/06/2023 Abnormal echocardiogram 12/06/2023 BPH with obstruction/lower urinary tract symptom s 08/12/2023 Essential (primary) hypertension 08/12/2023 Well adult exam 07/03/2023 Overview: 12/17 TTE [facility]--normal EF +Gr II stanley dys. 07/16 TTE: normal EF--large size septal, anteroseptal, inferior wall abnormality with hypokinesis to akinesis of the segments. There is a small size anteroseptal scar. No significant valvular disease. There is a small bvkwj-oi-lrdj intra atrial shunt--small PFO 04/15 Zio- + SVT eps. Brief. 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 To ENT. Bipolar disorder 06/23/2022 Type 2 diabetes mellitus wit h diabetic mononeuropathy, without long-term current use of insulin 06/23/2022 Personal history of alcoholism 06/23/2022 documented as of this encounter (statuses as of 08/06/2024) Immunizations Name Administration Dates Next Due COVID-19 mRNA, LNP-s, No Pre serve, 2-Dose Series (Moderna) 02/23/2021,01/19/2021 COVID-19, MRNA-LNP, 23-24, P F, 30 MCG/0.3 mL, 12 YRS AND ABOVE, IM ([facility]) 08/04/2023 COVID-19, mRNA, LNP-s, PF, B ooster, 100mcg/0.5mg (Moderna) 05/10/2022,09/11/2021 Covid-19, Mrna, Lnp-s, Pf, B ivalent, 30 Mcg, IM, 12 yrs and above ([employer]) 07/19/2022 DTaP Dipth/Tet/Acell Pertussis (Infanrix), Peds 03/11/2005 [...] Used Date Smoking Tobacco: Former Cigarettes 0.5 40.8 S tarted: 1984 Pipe Smokeless Tobacco: Never [...] encounter Miscellaneous Notes * Telephone Encounter - Jahaira Corado LPN - 08/06/2024 10:35 AM EDT Patient with a positive Diabetic Retinopathy scan. The images are not able to be interpreted. Outreach action taken: Left Message Jahaira Corado LPN documented in this encounter Plan of Treatment Upcoming Encounters Date Type Department Care Team (Late st Contact Info) Description 08/22/2024 9:30 AM EDT Office Visit Pharmacy, [facility] [address] [place] [address] [facility] [address] [place] [address] 11/30/2024 8:45 AM EST Imaging Radiology [facility] [address] [place] [address] 12/14/2024 9:30 AM EST Office Visit Otolaryngology [facility] [address] [place] [address] Kendall Armstrong, [address] [place] [address] Health Maintenance Due Date Last Done Comments [...] filedocumented as of this encounter Care Teams Competency Evaluated Nurse Aide Relationship Specialty Start Date End Date Rob Chisholm MD [address] [facility] [place] [address] PCP - General Family Medicine 06/23/22 documented as of this encounter
--- OUTSIDE RECORDS SUMMARY | 2024-11-13 19:36 | External Medical Summary | Summary of Care ---
Author Name Unknown Organization [facility] Address [address] [place] [address] Phone [phone] Care Team Providers Care Tripe Scraper Name Role Phone Rob Chisholm MD Primary Care Provider + Reason for Visit * Reason Onset Date Comments Medication Question 07/18/2024 Encounter Details Date Type Department Care Team (Late st Contact Info) Description 07/18/2024 Telephone Family Practice [facility] [address] [facility] [place] [address] Rob Chisholm MD [address] [place] [address] Medication Question Allergies No known active allergiesdocumented as of this encounter (statuses as of 07/24/2024) Medications Medication Sig Dispensed Refills Start Date [...] Nausea. 20 Tablet 2 12/06/2023 Active Pen [place] 32G X 4 MMIndications:Type 2 diabetes mellitus with diabetic mononeuropathy, without long-term current use of insulin ([facility]) Use as directed. 360 Each 3 12/13/2023 Active NovoLOG FlexPen 100 UNIT/ML Subcutaneous Solution Pen-injector (insulin aspart)Indications: Type 2 diabetes mellitus with diabetic mononeuropathy, without long-term current use of insulin ([facility]) Inject 5 units under the [...] insulin ([facility]) Inject 23 Units under the skin in the morning. 15 mL 2 04/11/2024 Active Pantoprazole Sodium 40 MG Oral Tablet Delayed Release (Protonix) TAKE ONE TABLET BY MOUTH EVERY MORNING 30 Tablet 5 04/18/2024 Active ARIPiprazole 5 MG Oral Tablet (Abilify)Indication s:Bipolar affective disorder, remission status unspecified (HCC) TAKE ONE TABLET BY MOUTH EVERY MORNING 30 Tablet 5 05/07/2024 Active Dexcom G7 SensorIndications:T ype 2 diabetes mellitus with diabetic mononeuropathy, without long-term current use of insulin ([facility]) APPLY ONE SENSOR TO THE SKIN FOR 10 DAYS. AFTER 10 DAYS, REMOVE THE OLD SENSOR AND APPLY NEW SENSOR 3 Each 5 05/13/2024 Active Nicotine 21 MG/24HR Transdermal Patch 24 Hour (Nicoderm CQ)Indications:Othe r tobacco product nicotine dependence, uncomplicated Place 1 Patch topically on the skin daily. 28 Patch 3 06/22/2024 Active COVID-19 mRNA Vacc (Moderna) 50 MCG/0.5ML Intramuscular Suspension Prefilled Syringe (Spikevax)Indicatio ns:Need for COVID-19 vaccine Inject 0.5 mL into a large muscle once for 1 dose. 0.5 mL 07/19/2024 07/19/2024 documented as of this encounter (statuses as of 07/24/2024) Active Problems Problem Noted Date Diagnosed Date [...] adult exam 07/03/2023 Overview: 12/17 TTE [facility]--normal EF +Gr II stanley dys. 07/16 TTE: normal EF--large size septal, anteroseptal, inferior wall abnormality with hypokinesis to akinesis of the segments. There is a small size anteroseptal scar. No significant valvular disease. There is a small [id number]-ifbq intra atrial shunt--small PFO 04/15 Zio- + SVT eps. Brief. 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 To ENT. Bipolar disorder 06/23/2022 Type 2 diabetes mellitus wit h diabetic mononeuropathy, without long-term current use of insulin 06/23/2022 Personal history of alcoholism 06/23/2022 documented as of this encounter (statuses as of 07/24/2024) Immunizations Name Administration Dates Next Due COVID-19 mRNA, LNP-s, No Pre serve, 2-Dose Series (Moderna) 02/23/2021,01/19/2021 COVID-19, MRNA-LNP, 23-24, P F, 30 MCG/0.3 mL, 12 YRS AND ABOVE, IM ([employer]) 08/04/2023 COVID-19, mRNA, LNP-s, PF, B ooster, 100mcg/0.5mg (Moderna) 05/10/2022,09/11/2021 Covid-19, Mrna, Lnp-s, Pf, B ivalent, 30 Mcg, IM, 12 yrs and above ([employer]) 07/19/2022 DTaP Dipth/Tet/Acell Pertussis (Infanrix), Peds [...] encounter Miscellaneous Notes * Telephone Encounter - Arline Rushing MD - 07/19/2024 10:54 AM EDT Rx Sent * Telephone Encounter - Pat Martines LPN - 07/19/2024 9:48 AM EDT [facility]. * Telephone Encounter - Arline Rushing MD - 07/19/2024 8:41 AM EDT Please check with patient - which pharmacy? * Telephone Encounter - Pranay Hunter floor space allocator - 07/18/2024 5:13 PM EDT Pt called stating that he has an appt tomorrow at 12 noon to get a Covid vaccine. Pt needs Dr to send script in [place] so they can give him the shot. Pt can be reached at [phone] for any questions.Pt would like to Thank the Dr for doing this! Thank You, Pranay Hunter [facility] Sign [employer] [facility] 07/18/2024, 5:14 PM documented in this encounter Plan of Treatment Upcoming Encounters Date Type Department Care Team (Late st Contact Info) Description 08/22/2024 9:30 AM EDT [facility] [address] [place] [address] [facility] [place] [address] [place] [address] 11/30/2024 8:45 AM EST Imaging Radiology [facility] [address] [place] [address] 12/14/2024 9:30 AM EST [facility] [place] [address] Kendall Armstrong, [address] [place] [address] Health Maintenance Due Date Last Done Comments Cologuard 2012 Colonoscopy 2012 Sigmoidoscopy 2012 Colorectal Cancer Screening 03/28/2024 Fecal Occult Blood Test 03/28/2024 03/28/2023 COVID-19 Vaccine ( season) 2024 08/04/2023, 07/19/2022, 05/10/2022, Additional history exists HbA1c 01/13/2025 2024, 05/0 05/2024, 11/09/2023, Additional history exists Albumin/Creatinine Ratio 02/28/20252 024, 02/25/2023, 12/30/2022, Additional history exists Diabetic [...] as of this encounter Visit Diagnoses Diagnosis Need for COVID-19 vaccine- Primary documented in this encounter Care Teams Tripe Scraper Relationship Specialty Start Date End Date Rob Chisholm MD [address] [place] [address] PCP - General Family Medicine 06/23/22 documented as of this encounter
--- OUTSIDE RECORDS SUMMARY | 2024-11-13 19:36 | External Medical Summary | Summary of Care ---
Author Name Unknown Organization [facility] Address [address] [place] [address] Phone [phone] Care Team Providers Care Massage Therapist Name Role Phone Rob Chisholm MD Primary Care Provider + Reason for Referral * Evaluate & Treat - Unlimited Visits (Within 30 days (routine)) - Pending Review Specialty Diagnoses / Procedures Referred By Curtis alcantara Referred To Contact Oral/Maxillofacial Surgery / Dentistry Diagnoses Tooth pain Rob Chisholm MD [address] [facility] [place] [address] Referral ID Status Reason Start Date Expiration Date Visits Requested Visits Authorized [id number] Pending Review Specialty Services Required 2024 999 999 Question Answer Referral Priority Within 30 days (routine) Where should this appointment be scheduled? [facility] Do you have pain at the present time? Yes - cracked tooth? Do you have any swelling? No Reason for Visit * Reason Onset Date Comments Physical-Exam Yearly physical Medication Administration 2024 Flu an d/or Pneumo Inj Encounter Details Date Type Department Care Team (Latest Contact Info) Description 2024 8:40 AM EDT Office Visit Family Practice [facility] [address] [place] [address] Rob Chisholm MD [address] [place] [address] Well adult exam*; Need for prophylactic vaccination and inoculation against influenza; Type 2 diabetes mellitus with diabetic mononeuropathy, without long-term current use of insulin ([facility]); Hypercalcemia; Screening for prostate cancer; Tooth pain; Bipolar affective disorder, remission status unspecified ([facility]); Essential (primary) hypertension; Alcohol dependence in remission ([facility]); Screen for colon cancer; Type 2 diabetes mellitus with diabetic mononeuropathy ([facility]); DM type 2 nursing care encounter ([facility]) Allergies No known active allergiesdocumented as of this encounter (statuses as of 2024) Medications Medication Sig Dispensed Refills Start Date End Date Status OneTouch Ultra 2 w/Device KitIndications:Type 2 diabetes mellitus with diabetic mononeuropathy, without long-term current use of insulin ([facility]) Check glucose one to four times daily as needed 1 Each 08/09/2022 Active Additional Information Patient not taking.Reported on 04/09/2024 Just Between FriendsTouch UltraSoft LancetsIndications:T ype 2 diabetes mellitus with [...] Additional Information Patient not taking.Reported on 04/09/2024 Just Between FriendsTouch Delica Lancing DevIndications:Type 2 diabetes mellitus with [...] Nausea. 20 Tablet 2 12/06/2023 Active Pen [place] 32G X 4 MMIndications:Type 2 diabetes mellitus with diabetic mononeuropathy, without long-term current use of insulin ([facility]) Use as directed. 360 Each 3 12/13/2023 Active NovoLOG FlexPen 100 UNIT/ML Subcutaneous Solution Pen-injector (insulin aspart)Indications:T ype 2 diabetes mellitus with diabetic mononeuropathy, without long-term current use of insulin ([facility]) Inject 5 units under the [...] current use of insulin ([facility]) Inject 23 Units under the [...] remission 01/05/2024 Food insecurity 01/02/2024 Overview: Per [facility] Protocol PFO (patent foramen ovale) 12/06/2023 Abnormal echocardiogram 12/06/2023 BPH with obstruction/lower urinary tract symptom s 08/12/2023 Essential (primary) hypertension 08/12/2023 Well adult exam 07/03/2023 Overview: 12/17 TTE [facility]--normal EF +Gr II stanley dys. 07/16 TTE: normal EF--large size septal, anteroseptal, inferior wall abnormality with hypokinesis to akinesis of the segments. There is a small size anteroseptal scar. No significant valvular disease. There is a small rsujf-er-jgyg intra atrial shunt--small PFO 04/15 Zio- + [...] information about this test. Date Last Reviewed: 03/24/201619991197-0639 [employer] [address] [place] [address], [place] [address]. All rights reserved. This information is not [...] information about this test. Date Last Reviewed: 03/24/201619993347-1278 [employer] [address] [place] [address]. All rights reserved. This information is not [...] Apprec MTM, psychiatry Ms. Lee recently left [facility]--needs new psychiatrist. Mood stable on meds No fever, chills, chest pain, shortness of breath, headache, nausea, vomit, diarrhea, constipation or vision changes Thinks cracked right upper rear molar about 1 mo ago, sensitive. ROS: Negative except above. Past Medical History: Diagnosis Date Abnormal echocardiogram 12/06/2023 DM type 2, goal HbA1c < 8% ([facility]) External hemorrhoid PFO (patent foramen ovale) 12/06/2023 Plantar wart severe Type 2 diabetes mellitus with diabetic mononeuropathy, without long-term current use of insulin ([facility]) 06/23/2022 Warthin's tumor 02/21/2023 02/16/23 FNA. Past Surgical History: Procedure Laterality Date IR BIOPSY 02/15/2023 IA TONSILLECTOMY & ADENOIDECTOMY LESS THAN AGE 14 1972 Social History Socioeconomic History Marital status: Single Spouse name: Not on file Number of children: Not on file Years of education: Not on file Highest education level: Not on file Occupational History Occupation: [employer]. different shifts. Tobacco Use Smoking status: Former [...] Stability Do you currently live in a custodial or have no steady place to sleep [...] needed for Nausea. 20 Tablet 2 Pen [place] 32G X 4 MM Use as directed. [...] symptoms or fever? No Have you had Guillain-Elizabeth Syndrome (an illness that causes paralysis) within [...] Description 2024 9:40 AM EDT Laboratory Laboratory, [facility] [address] [facility] [place] [address] [facility] Col[facility] [address] [facility] [place] [address] Arrived 08/22/2024 9:30 AM EDT Office Visit Pharmacy, [facility] [address] [facility] [place] [address] [address] [facility] [address] [facility] [place] [address] 11/30/2024 8:45 AM EST Imaging Radiology [facility] [address] [facility] [place] [address] 12/14/2024 9:30 AM EST Office Visit Otolaryngology [facility] [address] [facility] [place] [address] Kendall Armstrong DO [address] [facility] [place] [address] Scheduled Orders Name Type Priority Associated Diagnoses [...] mention of complication, not stated as uncontrolled documented in this encounter Care Teams Massage Therapist Relationship Specialty Start Date End Date Rob Chisholm MD [address] [facility] [place] [address] PCP - General Family Medicine 06/23/22 documented as of this encounter
--- OUTSIDE RECORDS SUMMARY | 2024-11-13 19:36 | External Medical Summary | Summary of Care ---
Author Name Unknown Organization [facility] Address [address] [place] [address] Phone [phone] Care Team Providers Care Supervisor Grove Name Role Phone Rob Chisholm MD Primary Care Provider + Reason for Visit * Reason Onset Date Comments Medication Question 07/18/2024 Encounter Details Date Type Department Care Team (Late st Contact Info) Description 07/18/2024 Telephone Family Practice [facility] [address] [place] [address] Rob Chisholm MD [address] [facility] [address] Medication Question Allergies No known active allergiesdocumented as of this encounter (statuses as of 07/19/2024) Medications Medication Sig Dispensed Refills Start Date [...] Nausea. 20 Tablet 2 12/06/2023 Active Pen [place] 32G X 4 MMIndications:Type 2 diabetes mellitus with diabetic mononeuropathy, without long-term current use of insulin ([facility]) Use as directed. 360 Each 3 12/13/2023 Active NovoLOG FlexPen 100 UNIT/ML Subcutaneous Solution Pen-injector (insulin aspart)Indications:T ype 2 diabetes mellitus with diabetic mononeuropathy, without long-term current use of insulin ([facility]) Inject 5 units under the [...] use of insulin ([facility]) Inject 23 Units under the [...] use of insulin ([facility]) APPLY ONE SENSOR TO THE [...] (Moderna) 50 MCG/0.5ML Intramuscular Suspension Prefilled Syringe (Spikevax)Indication s:Need for COVID-19 vaccine Inject 0.5 mL into a large muscle once for 1 dose. 0.5 mL 07/19/2024 07/19/2024 Active documented as of this encounter (statuses as of 07/19/2024) Active Problems Problem Noted Date Diagnosed Date Type 2 diabetes mellitus with diabetic mononeuro pauol 01/05/2024 Benign prostatic hyperplasia with lower urinary tract symptoms 01/05/2024 Alcohol dependence in remission 01/05/2024 Food insecurity 01/02/2024 Overview: Per [facility] Protocol PFO (patent foramen ovale) 12/06/2023 Abnormal echocardiogram 12/06/2023 BPH with obstruction/lower urinary tract symptom s 08/12/2023 Essential (primary) hypertension 08/12/2023 Well adult exam 07/03/2023 Overview: 12/17 TTE [facility]--normal EF +Gr II stanley dys. 07/16 TTE: normal EF--large size septal, anteroseptal, inferior wall abnormality with hypokinesis to akinesis of the segments. There is a small size anteroseptal scar. No significant valvular disease. There is a small [id number]-zd-qjqv intra atrial shunt--small PFO 04/15 Zio- + SVT eps. Brief. 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 To ENT. Bipolar disorder 06/23/2022 Type 2 diabetes mellitus wit h diabetic mononeuropathy, without long-term current use of insulin 06/23/2022 Personal history of alcoholism 06/23/2022 documented as of this encounter (statuses as of 07/19/2024) Immunizations Name Administration Dates Next Due COVID-19 mRNA, LNP-s, No Pre serve, 2-Dose Series (Moderna) 02/23/2021,01/19/2021 COVID-19, MRNA-LNP, 23-24, P F, 30 MCG/0.3 mL, 12 YRS AND ABOVE, IM ([employer] [facility]) 08/04/2023 COVID-19, mRNA, LNP-s, PF, B ooster, 100mcg/0.5mg (Moderna) 05/10/2022,09/11/2021 Covid-19, Mrna, Lnp-s, Pf, B ivalent, 30 Mcg, IM, 12 yrs and above ([employer]) 07/19/2022 DTaP Dipth/Tet/Acell Pertussis (Infanrix), Peds 03/11/2005 [...] - 07/19/2024 9:48 AM EDT [facility]. * Telephone Encounter - Arline Rushing MD - 07/19/2024 8:41 AM EDT Please check with patient - which pharmacy? * Telephone Encounter - Pranay Hunter drafter electrical - 07/18/2024 5:13 PM EDT Pt called stating that he has an appt tomorrow at 12 noon to get a Covid vaccine. Pt needs Dr to send script in [place] so they can give him the shot. Pt can be reached at [phone] for any questions.Pt would like to Thank the Dr for doing this! Thank You, Pranay Hunter [facility] Technical Specialist [employer] [facility] 07/18/2024, 5:14 PM documented in this encounter Plan of Treatment Upcoming Encounters Date Type Department Care Team (Cristy Contact Info) Description 08/22/2024 9:30 AM EDT Office Visit Pharmacy, [facility] [address] [facility] [place] [address] [facility] [place] [address] [facility] [place] [address] 11/30/2024 8:45 AM EST Imaging Radiology [facility] [address] [facility] [place] [address] 12/14/2024 9:30 AM EST Office Visit Otolaryngology [facility] [address] [facility] [place] [address] Kendall Armstrong, [address] [place] [address] Health Maintenance Due Date Last Done Comments [...] Primary documented in this encounter Care Teams Supervisor Grove Relationship Specialty Start Date End Date Rob Chisholm MD [address] [facility] [place] [address] PCP - General Family Medicine 06/23/22 documented as of this encounter
--- OUTSIDE RECORDS SUMMARY | 2024-11-13 19:36 | External Medical Summary | Summary of Care ---
Author Name Unknown Organization [facility] Address [address] [place] [address] Phone [phone] Care Team Providers Care Biometric Fingerprinting Technician Name Role Phone Rob Chisholm MD Primary Care Provider + Reason for Visit * Reason Comments Outpatient Testing Encounter Details Date Type Department Care Team (Late st Contact Info) Description 2024 9:40 AM EDT Laboratory Laboratory, [facility] [address] [place] [address] [facility] [address] [place] [address] Screening for prostate cancer; Type 2 diabetes mellitus with diabetic mononeuropathy, without long-term current use of insulin (HCC); Hypercalcemia Allergies No known active allergiesdocumented as of [...] without long-term current use of insulin ([facility]) Check glucose one to four times daily as needed 100 Strip 11 08/09/2022 Active Additional Information Patient not taking.Reported on 04/09/2024 OneTouch Delica Lancing DevIndications:Type 2 diabetes mellitus with diabetic mononeuropathy, without long-term current use of insulin ([facility]) Check glucose one to [...] Nausea. 20 Tablet 2 12/06/2023 Active Pen [place] 32G X 4 MMIndications:Type 2 diabetes mellitus with diabetic mononeuropathy, without long-term current use of insulin ([facility]) Use as directed. 360 Each 3 12/13/2023 Active NovoLOG FlexPen 100 UNIT/ML Subcutaneous Solution Pen-injector (insulin aspart)Indications:T ype 2 diabetes mellitus with diabetic mononeuropathy, without long-term current use of insulin ([facility]) Inject 5 units under the [...] remission 01/05/2024 Food insecurity 01/02/2024 Overview: Per [facility] Protocol PFO (patent foramen ovale) 12/06/2023 [...] significant valvular disease. There is a small dwfyf-af-clkd intra atrial shunt--small PFO 04/15 Zio- + [...] MCG/0.3 mL, 12 YRS AND ABOVE, IM ([facility] 08/04/2023 COVID-19, mRNA, LNP-s, PF, B ooster, 100mcg/0.5mg (Moderna) 05/10/2022,09/11/2021 Covid-19, Mrna, Lnp-s, Pf, B ivalent, 30 Mcg, IM, 12 yrs and above ([employer]) 07/19/2022 DTaP Dipth/Tet/Acell Pertussis (Infanrix), Peds 03/11/2005 [...] 08/22/2024 9:30 AM EDT Office Visit Pharmacy, [facility] [address] [facility] [place] [address] [place] [facility] [address] [place] [address] 11/30/2024 8:45 AM EST Imaging Radiology [facility] [address] [place] [address] 12/14/2024 9:30 AM EST Office Visit Otolaryngology [facility] [address] [place] [address] Kendall Armstrong DO [address] [place] [address] Pending Results Name Type Priority Associated Diagnoses [...] of insulin (HCC) 2024 9:32 AM EDT Health Maintenance Due Date Last [...] as of this encounter Visit Diagnoses Diagnosis Screening for prostate cancer Special screening for malignant neoplasm of prostate Type 2 diabetes mellitus with diabetic mononeuropathy, without long-term current use of insulin (HCC) Hypercalcemia documented in this encounter Care Teams Biometric Fingerprinting Technician Relationship Specialty Start Date End Date Rob Chisholm MD [address] [place] [address] PCP - General Family Medicine 06/23/22 documented as of this encounter
--- OUTSIDE RECORDS SUMMARY | 2024-11-13 19:36 | External Medical Summary ---
Author Name Unknown Address Unknown Organization K0G:[facility] [address] [place] [address] Laboratory Report Ordering Provider Test Date Status KRISTINE WERNER 2024 09:32:45 Final Observation Date Value Abnormality Reference (Units ) Status BUN 2024 09:32:45 13 6-20 (mg/dL) Final Creatinine 2024 09:32:45 1.2 0.6-1.2 (mg/dL) Final Glomerular filtration rate/1.73 sq M.predicted [Volume Rate/Area] in Serum, Plasma or Blood by Creatinine-based formula (CKD-EPI) 2024 09:32:45 74 >=60 (mL/min) Final eGFR is calculated based on the CKD-EPI 2020 equation. Sodium 2024 09:32:45 139 135-146 (m mol/L) Final Potassium 2024 09:32:45 4.6 3.5-5.1 (m mol/L) Final Cl 2024 09:32:45 101 98-107 (mm ol/L) Final CO2 2024 09:32:45 23 22-32 (mmo l/L) Final Anion gap 2024 09:32:45 15 7-15 (mmol /L) Final Glucose 2024 09:32:45 130 Above high normal 70 -120 (mg/dL) Final Calcium 2024 09:32:45 10.0 8.4-10.2 ( mg/dL) Final Performing Location [facility] [address] [place] [address]
--- OUTSIDE RECORDS SUMMARY | 2024-11-13 19:36 | External Medical Summary | Summary of Care ---
Author Name Unknown Organization [facility] Address [address] [place] [address] Phone [phone] Care Team Providers Care Supervisor Shearing Name Role Phone Rob Chisholm MD Primary Care Provider + Reason for Visit * Reason Onset Date Comments Medication Question 07/18/2024 Encounter Details Date Type Department Care Team (Late st Contact Info) Description 07/18/2024 Telephone Family Practice [facility] [address] [place] [address] Rob Chisholm MD [address] [place] [address] Medication Question Allergies No known active allergiesdocumented [...] Nausea. 20 Tablet 2 12/06/2023 Active Pen [place] 32G X 4 MMIndications:Type 2 diabetes mellitus [...] current use of insulin ([facility]) APPLY ONE SENSOR TO THE SKIN FOR [...] remission 01/05/2024 Food insecurity 01/02/2024 Overview: Per [facility] Protocol PFO (patent foramen ovale) 12/06/2023 Abnormal echocardiogram 12/06/2023 BPH with obstruction/lower urinary tract symptom s 08/12/2023 Essential (primary) hypertension 08/12/2023 Well adult exam 07/03/2023 Overview: 12/17 TTE [facility]--normal EF +Gr II stanley dys. 07/16 TTE: normal EF--large size septal, anteroseptal, inferior wall abnormality with hypokinesis to akinesis of the segments. There is a small size anteroseptal scar. No significant valvular disease. There is a small mwemn-nb-ujmr intra atrial shunt--small PFO 04/15 Zio- + [...] MCG/0.3 mL, 12 YRS AND ABOVE, IM ([employer] [facility]) 08/04/2023 COVID-19, mRNA, LNP-s, PF, B ooster, 100mcg/0.5mg (Moderna) 05/10/2022,09/11/2021 Covid-19, Mrna, Lnp-s, Pf, B ivalent, 30 Mcg, IM, 12 yrs and above ([employer]) 07/19/2022 DTaP Dipth/Tet/Acell Pertussis (Infanrix), Peds 03/11/2005 [...] - 07/19/2024 9:48 AM EDT [facility]. * Telephone Encounter - Arline Rushing MD - 07/19/2024 8:41 AM EDT Please check with patient - which pharmacy? * Telephone Encounter - Pranay Hunter packager and strapper - 07/18/2024 5:13 PM EDT Pt called stating that he has an appt tomorrow at 12 noon to get a Covid vaccine. Pt needs Dr to send script in [place] so they can give him the shot. Pt can be reached at [phone] for any questions.Pt would like to Thank the Dr for doing this! Thank You, Pranay Hunter [facility] Steel M[employer] II [facility] 07/18/2024, 5:14 PM documented in this encounter Plan of Treatment Upcoming Encounters Date Type Department Care Team (Cristy Contact Info) Description 08/22/2024 9:30 AM EDT Office Visit Pharmacy, [facility] [address] [facility] [place] [address] [facility] [place] [address] [facility] [place] [address] 11/30/2024 8:45 AM EST Imaging Radiology [facility] [address] [facility] [place] [address] 12/14/2024 9:30 AM EST Office Visit Otolaryngology [facility] [address] [facility] [place] [address] Kendall Armstrong, [address] [place] [address] Health Maintenance Due Date Last Done Comments [...] documented in this encounter Care Teams Supervisor Shearing Relationship Specialty Start Date End Date Rob Chisholm MD [address] [facility] [place] [address] PCP - General Family Medicine 06/23/22 documented as of this encounter
--- OUTSIDE RECORDS SUMMARY | 2024-11-13 19:36 | External Medical Summary | Summary of Care ---
Author Name Unknown Organization [facility] Address [address] [place] [address] Phone [phone] Care Team Providers Care Hydramatic Mechanic Name Role Phone Rob Chisholm MD Primary Care Provider + Reason for Visit * Reason Onset Date Comments Medication Question 06/22/2024 Encounter Details Date Type Department Care Team (Late st Contact Info) Description 06/22/2024 Telephone Family Practice [facility] [address] [place] [address] Rob Chisholm MD [address] [place] [address] Medication Question Allergies No known active allergiesdocumented [...] Nausea. 20 Tablet 2 12/06/2023 Active Pen [place] 32G X 4 MMIndications:Type 2 diabetes mellitus with diabetic mononeuropathy, without long-term current use of insulin ([facility]) Use as directed. 360 Each 3 12/13/2023 Active NovoLOG FlexPen 100 UNIT/ML Subcutaneous Solution Pen-injector (insulin aspart)Indications: Type 2 diabetes mellitus with diabetic mononeuropathy, without long-term current use of insulin ([facility]) Inject 5 units under the [...] use of insulin ([facility]) Inject 23 Units under the skin in the morning. 15 mL 2 04/11/2024 Active Pantoprazole Sodium 40 MG Oral Tablet Delayed Release (Protonix) TAKE ONE TABLET BY MOUTH EVERY MORNING 30 Tablet 5 04/18/2024 Active ARIPiprazole 5 MG Oral Tablet (Abilify)Indication s:Bipolar affective disorder, remission status unspecified ([facility]) TAKE ONE TABLET BY MOUTH EVERY MORNING 30 Tablet 5 05/07/2024 Active Dexcom G7 SensorIndications:T ype 2 diabetes mellitus with diabetic mononeuropathy, without long-term current use of insulin ([facility]) APPLY ONE SENSOR TO THE [...] remission 01/05/2024 Food insecurity 01/02/2024 Overview: Per [facility] Protocol PFO (patent foramen ovale) 12/06/2023 Abnormal echocardiogram 12/06/2023 BPH with obstruction/lower urinary tract symptom s 08/12/2023 Essential (primary) hypertension 08/12/2023 Well adult exam 07/03/2023 Overview: 12/17 TTE [facility]--normal EF +Gr II stanley dys. 07/16 TTE: normal EF--large size septal, anteroseptal, inferior wall abnormality with hypokinesis to akinesis of the segments. There is a small size anteroseptal scar. No significant valvular disease. There is a small qikxf-ob-jofh intra atrial shunt--small PFO 04/15 Zio- + [...] MCG/0.3 mL, 12 YRS AND ABOVE, IM ([employer]) 08/04/2023 COVID-19, mRNA, LNP-s, PF, B ooster, 100mcg/0.5mg (Moderna) 05/10/2022,09/11/2021 Covid-19, Mrna, Lnp-s, Pf, B ivalent, 30 Mcg, IM, 12 yrs and above ([employer]) 07/19/2022 DTaP Dipth/Tet/Acell Pertussis (Infanrix), Peds 03/11/2005 [...] was the 21 MG. Pt uses [facility] [id number] Please call Pt: [phone] Please advise. Thank you, Kelly De La Garza CPhT Speech Language Therapist III [facility] ([facility]) 06/22/2024, 9:22 AM documented in this encounter Plan of Treatment Upcoming Encounters Date Type Department Care Team (Late st Contact Info) Description 2024 8:40 AM EDT Office Visit Family [facility] [address] [place] [address] Rob Chisholm MD [address] [place] [address] 08/22/2024 9:30 AM EDT [facility] Pharmacy, [facility] [place] [address] [facility] [address] [place] [address] 11/30/2024 8:45 AM EST Imaging Radiology [facility] [place] [address] 12/14/2024 9:30 AM EST Office Visit [facility]ol[facility]ology [facility] [place] [address] Kendall Armstrong, [address] [place] [address] Health Maintenance Due Date Last Done Comments [...] uncomplicated documented in this encounter Care Teams Hydramatic Mechanic Relationship Specialty Start Date End Date Rob Chisholm MD [address] [place] [address] PCP - General Family Medicine 06/23/22 documented as of this encounter
--- OUTSIDE RECORDS SUMMARY | 2024-11-13 19:37 | External Medical Summary | Summary of Care ---
Author Name Unknown Organization [facility] Address [address] [place] [address] Phone [phone] Care Team Providers Care Drop Crew Laborer Name Role Phone Rob Chisholm MD Primary Care Provider + Reason for Visit * Reason Onset Date Comments Medication Question 06/22/2024 Encounter Details Date Type Department Care Team (Late st Contact Info) Description 06/22/2024 Telephone Family Practice [facility] [address] [facility] [place] [address] Rob Chisholm MD [address] [place] [address] Medication Question Allergies No known active allergiesdocumented [...] 20 Tablet 2 12/06/2023 Active Pen [place] 32G X 4 MMIndications:Type 2 diabetes mellitus with diabetic mononeuropathy, without long-term current use of insulin ([facility]) Use as directed. 360 Each 3 12/13/2023 Active NovoLOG FlexPen 100 UNIT/ML Subcutaneous Solution Pen-injector (insulin aspart)Indications: Type 2 diabetes mellitus with diabetic mononeuropathy, without long-term current use of insulin ([facility]) Inject 5 units under the skin with [...] long-term current use of insulin ([facility]) Inject 23 Units under the skin in the morning. 15 mL 2 04/11/2024 Active Pantoprazole Sodium 40 MG Oral Tablet Delayed Release (Protonix) TAKE ONE TABLET BY MOUTH EVERY MORNING 30 Tablet 5 04/18/2024 Active ARIPiprazole 5 MG Oral Tablet (Abilify)Indication s:Bipolar affective disorder, remission status unspecified ([facility]) TAKE ONE TABLET BY MOUTH EVERY MORNING 30 Tablet 5 05/07/2024 Active Dexcom G7 SensorIndications:T ype 2 diabetes mellitus with diabetic mononeuropathy, without long-term current use of insulin ([facility]) APPLY ONE SENSOR TO THE SKIN FOR [...] remission 01/05/2024 Food insecurity 01/02/2024 Overview: Per [facility] Protocol PFO (patent foramen ovale) 12/06/2023 Abnormal echocardiogram 12/06/2023 BPH with obstruction/lower urinary tract symptom s 08/12/2023 Essential (primary) hypertension 08/12/2023 Well adult exam 07/03/2023 Overview: 12/17 TTE [facility]--normal EF +Gr II stanley dys. 07/16 TTE: normal EF--large size septal, anteroseptal, inferior wall abnormality with hypokinesis to akinesis of the segments. There is a small size anteroseptal scar. No significant valvular disease. There is a small rvwqg-oo-dida intra atrial shunt--small PFO 04/15 Zio- + [...] MCG/0.3 mL, 12 YRS AND ABOVE, IM ([employer]) 08/04/2023 COVID-19, mRNA, LNP-s, PF, B ooster, 100mcg/0.5mg (Moderna) 05/10/2022,09/11/2021 Covid-19, Mrna, Lnp-s, Pf, B ivalent, 30 Mcg, IM, 12 yrs and above ([employer]) 07/19/2022 DTaP Dipth/Tet/Acell Pertussis (Infanrix), Peds 03/11/2005 [...] was the 21 MG. Pt uses [facility] [id number] Please call Pt: [phone] Please advise. Thank you, Kelly De La Garza CPhT Casing Trimmer III [facility] ([facility]) 06/22/2024, 9:22 AM documented in this encounter Plan of Treatment Upcoming Encounters Date Type Department Care Team (Late st Contact Info) Description 2024 8:40 AM EDT Office Visit Family [facility] [address] [place] [address] Rob Chisholm MD [address] [place] [address] 08/22/2024 9:30 AM EDT Office Visit Pharmacy, [facility] [place] [address] [facility] [address] [place] [address] 11/30/2024 8:45 AM EST Imaging Radiology [facility] [place] [address] 12/14/2024 9:30 AM EST Office Visit Otolaryngology [facility] [address] [facility] [place] [address] Kendall Armstrong, [address] [place] [address] Health Maintenance Due Date Last Done Comments [...] uncomplicated documented in this encounter Care Teams Drop Crew Laborer Relationship Specialty Start Date End Date Rob Chisholm MD [address] [place] [address] PCP - General Family Medicine 06/23/22 documented as of this encounter
--- OUTSIDE RECORDS SUMMARY | 2024-11-13 19:37 | External Medical Summary | Summary of Care ---
Author Name Unknown Organization [facility] Address [address] [place] [address] Phone [phone] Care Team Providers Care Psychology Intern Name Role Phone Alphonso Chisholm MD Primary Care Provider + Reason for Visit * Reason Comments eRx-Medication Refill Encounter Details Date Type Department Care Team (Late st Contact Info) Description 06/19/2024 Refill Family Practice [facility] [address] [facility] [address] Alphonso Chisholm MD [address] [place] [facility] [place] [address] Other tobacco product nicotine dependence, uncomplicated Allergies No known active allergiesdocumented as of this encounter (statuses as of 06/21/2024) Medications Medication Sig Dispensed Refills Start Date [...] Nausea. 20 Tablet 2 12/06/2023 Active Pen [place] 32G X 4 MMIndications:Type 2 diabetes mellitus [...] (Abilify)Indications :Bipolar affective disorder, remission status unspecified ([facility]) [...] ([employer] [facility])Indications:Other tobacco product nicotine dependence, uncomplicated PLACE 1 PATCH TOPICALLY ON THE SKIN ON THE UPPER BODY/UPPER ARM ONCE DAILY IN THE MORNING FOR 6 WEEKS 14 Patch 05/23/2024 Active documented as of this encounter (statuses as of 06/21/2024) Active Problems Problem Noted Date Diagnosed Date Type 2 diabetes mellitus with diabetic mononeuro paulo 01/05/2024 Benign prostatic hyperplasia with lower urinary tract symptoms 01/05/2024 Alcohol dependence in remission 01/05/2024 Food insecurity 01/02/2024 Overview: Per [facility] Protocol PFO (patent foramen ovale) 12/06/2023 Abnormal echocardiogram 12/06/2023 BPH with obstruction/lower urinary tract symptom s 08/12/2023 Essential (primary) hypertension 08/12/2023 Well adult exam 07/03/2023 Overview: 12/17 TTE [facility]--normal EF +Gr II stanley dys. 07/16 TTE: normal EF--large size septal, anteroseptal, inferior wall abnormality with hypokinesis to akinesis of the segments. There is a small size anteroseptal scar. No significant valvular disease. There is a small uprar-nq-qlsa intra atrial shunt--small PFO 04/15 Zio- + SVT eps. Brief. 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 To ENT. Bipolar disorder 06/23/2022 Type 2 diabetes mellitus wit h diabetic mononeuropathy, without long-term current use of insulin 06/23/2022 Personal history of alcoholism 06/23/2022 documented as of this encounter (statuses as of 06/21/2024) Immunizations Name Administration Dates Next Due COVID-19 mRNA, LNP-s, No Pre serve, 2-Dose Series (Moderna) 02/23/2021,01/19/2021 COVID-19, MRNA-LNP, 23-24, P F, 30 MCG/0.3 mL, 12 YRS AND ABOVE, IM ([employer]) 08/04/2023 COVID-19, mRNA, LNP-s, PF, B ooster, 100mcg/0.5mg (Moderna) 05/10/2022,09/11/2021 Covid-19, Mrna, Lnp-s, Pf, B ivalent, 30 Mcg, IM, 12 yrs and above ([employer]) 07/19/2022 DTaP Dipth/Tet/Acell Pertussis (Infanrix), Peds 03/11/2005 [...] Tobacco: Former Cigarettes 0.5 40.7 S tarted: 1983 Pipe Smokeless Tobacco: Never [...] Miscellaneous Notes * Telephone Encounter - Alphonso Akers [facility] - 06/21/2024 8:43 AM EDT Refused Prescriptions: Disp Refills Nicotine 21 MG/24HR Transdermal Patch 24 H*14 Pat*0 Sig: PLACE 1 PATCH TOPICALLY ON THE SKIN ON THE UPPER BODY/UPPER ARM ONCE DAILY IN THE MORNING FOR 6 WEEKSRefused By: ALPHONSO AKERSReason for Refusal: Refill Not AppropriateReason for Refusal Comment: Patient to go to 14mg after 6 weeks of 21mg documented in this encounter Plan of Treatment Upcoming Encounters Date Type Department Care Team (Late st Contact Info) Description 2024 8:40 AM EDT Office Visit Family Practice [facility] [address] [place] [address] Alphonso Chisholm MD [address] [place] [address] 08/22/2024 9:30 AM EDT Office Visit Pharmacy, [facility] [address] [place] [address] [facility] [address] [place] [address] 11/30/2024 8:45 AM EST Imaging Radiology [facility] [address] [place] [address] 12/14/2024 9:30 AM EST Office Visit Otolaryngology [facility] [address] [place] [address] Kendall Armstrong, [address] [place] [address] Health Maintenance Due Date Last Done Comments [...] uncomplicated documented in this encounter Care Teams Psychology Intern Relationship Specialty Start Date End Date Alphonso Chisholm MD [address] [place] [address] PCP - General Family Medicine 06/23/22 documented as of this encounter
--- OUTSIDE RECORDS SUMMARY | 2024-11-13 19:37 | External Medical Summary | Summary of Care ---
Author Name Unknown Organization [facility] Address [address] [place] [address] Phone [phone] Care Team Providers Care Marketing Sales Representative Name Role Phone Rob Carmona MD Primary Care Provider + Reason for Visit * Reason Comments eRx-Medication Refill Encounter Details Date Type Department Care Team (Late st Contact Info) Description 05/22/2024 Refill Family Practice [facility] [address] [place] [address] Juan Blanc CRNP [address] [facility] [place] [address] Other tobacco product nicotine dependence, uncomplicated Allergies No known active allergiesdocumented as of this encounter (statuses as of 05/23/2024) Medications Medication Sig Dispensed Refills Start Date End Date Status OneTouch Ultra 2 w/Device KitIndications:Typ e 2 diabetes mellitus with diabetic mononeuropathy, without long-term current use of insulin (HCC) Check glucose one to four times daily as needed 1 Each 08/09/2022 Active Additional Information Patient not taking.Reported on 04/09/2024 OneTouch UltraSoft LancetsIndications :Type 2 diabetes mellitus [...] Patient not taking.Reported on 04/09/2024 Hema Patterson DevIndications:Typ e 2 diabetes mellitus with diabetic [...] taking.Reported on 04/09/2024 Ketoconazole 2 % External CreamIndications:T inea corporis [...] Nausea. 20 Tablet 2 12/06/2023 Active Pen [place] 32G X 4 MMIndications:Type 2 diabetes mellitus with diabetic mononeuropathy, without long-term current use of insulin ([facility]) Use as directed. 360 Each 3 12/13/2023 Active NovoLOG FlexPen 100 UNIT/ML Subcutaneous Solution Pen-injector (insulin aspart)Indications :Type 2 diabetes mellitus with diabetic mononeuropathy, without long-term current use of insulin ([facility]) Inject 5 units under the skin with lunch and 8 units with dinner 15 mL 2 01/03/2024 Active Nicotine 14 MG/24HR Transdermal Patch 24 Hour (Nicoderm CQ)Indications:Oth er tobacco product nicotine dependence, uncomplicated Place 1 Patch over 24 hours topically on the skin daily. 28 Patch 2 01/05/2024 Active Losartan Potassium 50 MG Oral Tablet (Cozaar) TAKE ONE TABLET BY MOUTH EVERY MORNING 30 Tablet 5 03/21/2024 Active hydrOXYzine HCl 25 MG Oral TabletIndications: Panic attacks Take 1 Tablet by mouth every 6 hours as needed for Anxiety. 10 Tablet 1 04/09/2024 Active Insulin Glargine 100 UNIT/ML Subcutaneous Solution Pen-injector (Lantus)Indication s:Type 2 diabetes mellitus with diabetic mononeuropathy, without long-term current use of insulin ([facility]) Inject 23 Units under the skin in the morning. 15 mL 2 04/11/2024 Active Pantoprazole Sodium 40 MG Oral Tablet Delayed Release (Protonix) TAKE ONE TABLET BY MOUTH EVERY MORNING 30 Tablet 5 04/18/2024 Active ARIPiprazole 5 MG Oral Tablet (Abilify)Indicatio ns:Bipolar affective disorder, remission status unspecified ([facility]) TAKE ONE TABLET BY MOUTH EVERY MORNING 30 Tablet 5 05/07/2024 Active Dexcom G7 SensorIndications: Type 2 diabetes mellitus with diabetic mononeuropathy, without long-term current use of insulin ([facility]) APPLY ONE SENSOR TO THE SKIN FOR 10 DAYS. AFTER 10 DAYS, REMOVE THE OLD SENSOR AND APPLY NEW SENSOR 3 Each 5 05/13/2024 Active Nicotine 21 MG/24HR Transdermal Patch 24 Hour (Nicoderm CQ)Indications:Oth er tobacco product nicotine dependence, uncomplicated PLACE 1 PATCH TOPICALLY ON THE SKIN ON THE UPPER BODY/UPPER ARM ONCE DAILY IN THE MORNING FOR 6 WEEKS 14 Patch 05/23/2024 Active Nicotine 21 MG/24HR Transdermal Patch 24 Hour (Nicoderm CQ)Indications:Oth er tobacco product nicotine dependence, uncomplicated Place 1 Patch over 24 hours topically on the skin in the morning. On upper body/upper arm, change once a day for 6 weeks.. 28 Patch 04/09/2024 05/23/20 24 Discontinued documented as of this encounter (statuses as of 05/23/2024) Active Problems Problem Noted Date Diagnosed Date [...] Well adult exam 07/03/2023 Overview: 12/17 TTE [facility]--normal EF +Gr II stanley dys. 07/16 TTE: normal EF--large size septal, anteroseptal, inferior wall abnormality with hypokinesis to akinesis of the segments. There is a small size anteroseptal scar. No significant valvular disease. There is a small [id number]-[id number] intra atrial shunt--small PFO 04/15 Zio- + SVT eps. Brief. 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 To ENT. Bipolar disorder 06/23/2022 Type 2 diabetes mellitus wit h diabetic mononeuropathy, without long-term current use of insulin 06/23/2022 Personal history of alcoholism 06/23/2022 documented as of this encounter (statuses as of 05/23/2024) Immunizations Name Administration Dates Next Due COVID-19 mRNA, LNP-s, No Pre serve, 2-Dose Series (Moderna) 02/23/2021,01/19/2021 COVID-19, MRNA-LNP, 23-24, P F, 30 MCG/0.3 mL, 12 YRS AND ABOVE, IM ([employer]) 08/04/2023 COVID-19, mRNA, LNP-s, PF, B ooster, [...] Used Date Smoking Tobacco: Former Cigarettes 0.5 40.6 S tarted: 1984 Pipe Smokeless Tobacco: Never [...] encounter Miscellaneous Notes * Telephone Encounter - Azul Roman RPh - 05/23/2024 8:22 AM EDTSigned Prescriptions: Disp Refills Nicotine 21 MG/24HR Transdermal Patch 24 H*14 Pat*0 Sig: PLACE 1PATCH TOPICALLY ON THE SKIN ON THE UPPER BODY/UPPER ARM ONCE DAILY IN THE MORNING FOR 6 WEEKSAuthorizing Provider: ROB CARMONA User: AZUL ROMAN * Telephone Encounter - Azul Roman RPh - 05/23/2024 8:22 AM EDT Per guidelines, if pt currently smoking more than 10 cigarettes/day: Apply one 21-mg patch transdermally daily for weeks 1 through 6, then one 14-mg patch daily for weeks 7 and 8, and then one 7-mg patch daily for weeks 9 and 10. Patient should now be on the 21mg patches for an additional 2 weeks. Order sent to pharmacy. Thank you, Azul Roman, PharmD. Clinical Pharmacist [facility] ([facility]) 05/23/2024, 8:22 AM documented in this encounter Plan of Treatment Upcoming Encounters Date Type Department Care Team (Late st Contact Info) Description 05/23/2024 9:30 AM EDT Office Visit Pharmacy, [facility] [address] [facility] [place] [address] [place] [facility] [place] [address] 06/04/2024 9:00 AM EDT Office Visit Psychiatry, [facility] [place] [address] [place] [address] Bebe Lee CRNP [address] [facility] [place] [address] 2024 8:40 AM EDT Office Visit Family Practice [facility] [address] [place] [address] Rob Carmona MD [address] [place] [address] 11/30/2024 8:45 AM EST Imaging Radiology [facility] [address] [facility] [place] [address] 12/14/2024 9:30 AM EST Office Visit Otolaryngology [facility] [address] [facility] [place] [address] Kendall Armstrong, [address] [facility] [place] [address] Health Maintenance Due Date Last Done Comments Hepatitis B Vaccine (1 of 3 - 19+ 3-dose series) 1986 Cologuard 2012 Colonoscopy 2012 Sigmoidoscopy 2012 Diabetic Foot Exam 08/09/2023 08/09/2022 Diabetic Eye Exam 11/30/2023 11/30/2022 Colorectal Cancer Screening 03/28/2024 Fecal Occult Blood Test 03/28/2024 03/28/2023 *BASELINE EKG FOR HTN 05/06/2024 Influenza Vaccine (FLU shot) (#1) 2024 06/24/2023, 08/09/2022 HbA1c 08/31/2024 02/29/2024, 10/24, 10/31/2023, Additional history exists Albumin/Creatinine Ratio 02/28/2025 024, 02/25/2023, 12/30/2022, Additional history exists GFR 02/28/2025 02/29/2024, 10/24, 10/31/2023, Additional history exists Lipid Panel 02/28/2029 02/29/2024, 02/2023, 06/25/2022 DTaP,Tdap,and Td Vaccines (3 - Td or Tdap) 06/24/2033 06/24/2023, 03/11/2005 HIV Screening Completed 06/25/2022 Hepatitis C Screening Completed 06/25/2022 , 06/25/2022, 06/25/2022 Zoster Vaccines Completed 08/21/2022, 05/10/2022 Pneumococcal Vaccine: [...] uncomplicated documented in this encounter Care Teams Marketing Sales Representative Relationship Specialty Start Date End Date Rob Carmona MD [address] [place] [address] PCP - General Family Medicine 06/23/22 documented as of this encounter
--- OUTSIDE RECORDS SUMMARY | 2024-11-13 19:37 | External Medical Summary | Summary of Care ---
Author Name Unknown Organization [facility] Address [address] [place] [address] Phone [phone] Care Team Providers Care Oracle Adf Consultant Name Role Phone Rob Chisholm MD Primary Care Provider + Reason for Visit * Reason Comments Dosage Adjustment In Person (Anticoag Cl inic) Diabetes Follow-Up Encounter Details Date Type Department Care Team (Late st Contact Info) Description 05/23/2024 9:30 AM EDT Office Visit Pharmacy, [facility] [address] [address] [facility] [address] [facility] [place] [id number] Type 2 diabetes mellitus with diabetic mononeuropathy, without long-term current use of insulin (HCC)* Allergies No known active allergiesdocumented as of [...] long-term current use of insulin ([facility]) Check glucose one to four times daily as needed 100 Strip 11 08/09/2022 Active Additional Information Patient not taking.Reported on 04/09/2024 OneTouch Delica Lancing DevIndications:Type 2 diabetes mellitus with diabetic mononeuropathy, without long-term current use of insulin ([facility]) Check glucose one to four times [...] Nausea. 20 Tablet 2 12/06/2023 Active Pen [place] 32G X 4 MMIndications:Type 2 diabetes mellitus with diabetic mononeuropathy, without long-term current use of insulin ([facility]) Use as directed. 360 Each 3 12/13/2023 Active NovoLOG FlexPen 100 UNIT/ML Subcutaneous Solution Pen-injector (insulin aspart)Indications:T ype 2 diabetes mellitus with diabetic mononeuropathy, without long-term current use of insulin ([facility]) Inject 5 units under the skin [...] remission 01/05/2024 Food insecurity 01/02/2024 Overview: Per [facility] Protocol PFO (patent foramen ovale) 12/06/2023 Abnormal echocardiogram 12/06/2023 BPH with obstruction/lower urinary tract symptom s 08/12/2023 Essential (primary) hypertension 08/12/2023 Well adult exam 07/03/2023 Overview: 12/17 TTE [facility]--normal EF +Gr II stanley dys. 07/16 TTE: normal EF--large size septal, anteroseptal, inferior wall abnormality with hypokinesis to akinesis of the segments. There is a small size anteroseptal scar. No significant valvular disease. There is a small [id number]-[id number] intra atrial shunt--small PFO 04/15 Zio- + [...] MCG/0.3 mL, 12 YRS AND ABOVE, IM ([facility]) 08/04/2023 COVID-19, mRNA, LNP-s, PF, B ooster, 100mcg/0.5mg (Moderna) 05/10/2022,09/11/2021 Covid-19, Mrna, Lnp-s, Pf, B ivalent, 30 Mcg, IM, 12 yrs and above ([employer]) 07/19/2022 DTaP Dipth/Tet/Acell Pertussis (Infanrix), Peds 03/11/2005 [...] on file Are you (or your family) raysahwn eless or worried that you might be [...] Sign Reading Time Taken Comments Blood Pressure - - Pulse - - Temperature - - Respiratory Rate - - Oxygen Saturation - - Inhaled Oxygen Concentration - - Weight 76.7 kg (169 lb) 05/23/2024 9:25 AM EDT Height - - Body Mass Index 25.7 11/23/2023 10:44 AM EST documented in this encounter Progress Notes * Jeannie Clayton, [facility] - 05/23/2024 9:08 AM EDT Images from the original note were not included. Medication Therapy [facility] - Diabetes Management Progress Note Román Garcia, identified by name and date of , is a 58 year old male being seen for diabetes management/education. Patient presents for return diabetic visit. DIABETES: Current diabetic medications: INCREASE: Lantus 24 units once daily Novolog 5 units with light lunch, 8 units with heavy breakfast/supper Medication Injection Site: Abdomen Lifestyle: Diet: unchanged Glucose Review/SMBG: Readings obtained from patient device Hypoglycemia: Does your blood sugar go below 70 mg/dL? No Hyperglycemia symptoms present: none Recent Labs Units 02/29/24 0907 11/09/23 1233 10/31/23 1257 HEMOGLOBIN A1C - [facility] % 8.6* 9.2* 8.8* Recent Labs Units 02/29/24 0907 11/09/23 1233 10/31/23 1257 ESTIMATED GLOMERULAR FILTRATION RATE - [facility] mL/min 87 64 >90 CREATININE - [facility] mg/dL 1.0 1.3* 0.8 HYPERTENSION: Patient on ACEi/ARB: yes BP Readings from Last 3 Encounters: 04/09/24 128/72 01/05/24 118/62 12/06/23 132/76 Blood pressure at goal: yes HYPERLIPIDEMIA: Patient is taking moderate or high intensity statin: No Current regimen: None, declines use due to leg pain Goal statin intensity: moderate The 10-year ASCVD risk score (Juliet CHIN, et al., 2019) is: 11.8% Values used to calculate the score: Age: 58 years Sex: Male Is Non- : No Diabetic: Yes Tobacco smoker: No Systolic Blood Pressure: 128 mmHg Is BP treated: Yes HDL Cholesterol: 52 mg/dL Total Cholesterol: 184 mg/dL Recent Labs Units 02/29/24 0907 02/25/23 0753 06/25/22 0803 LDL CHOLESTEROL (CALCULATED) - [facility] mg/dL 94 97 120 HEALTH MAINTENANCE REVIEW: Health Maintenance Due Topic Date Due Hepatitis B Vaccine (1 of 3 - 19+ 3-dose series) Never done Diabetic Foot Exam 08/09/2023 Diabetic Eye Exam 11/30/2023 Colorectal Cancer Screening 03/28/2024 *BASELINE EKG FOR HTN Never done ASSESSMENT & PLAN: BG Readings - Blood sugars controlled. BG values look much improved at this time. Medications - Reviewed current regimen, patient is adherent to regimen. Continue current regimen atthis time. Diet, Exercise, Lifestyle - No significant lifestyle changes since last visit. Discussed with patient. Patient is agreeable to CGM Patient aware to contact clinic if any hypoglycemia before next visit. MEDICATION CHANGES: no change Diabetic Medications: Lantus 24 units once daily Novolog 5 units with light lunch, 8 units with heavy breakfast/supper HEALTH MAINTENANCE INTERVENTIONS: Labs: Up to Date Immunizations: Up to Date Foot Exam: Complete with next PCP visit on [facility] Eye Exam: will obtain records from Dr. Crum office Annual Wellness Visit: N/A FOLLOW UP: Return to clinic in 12 weeks 08/22/2024 Jeannie Clayton RPh Clinical Pharmacist - Peeler Operator Medication Therapy Management [facility] 05/23/2024, 9:09 AM documented in this encounter Plan of Treatment Upcoming Encounters Date Type Department Care Team (Late st Contact Info) Description 06/04/2024 9:00 AM EDT Office Visit [facility] [address] [place] [address] Bebe Lee CRNP [address] [place] [address] 2024 8:40 AM EDT Office Visit Family [facility] [address] [facility] [place] [id number] Rob Chisholm MD [address] [place] [address] 08/22/2024 9:30 AM EDT Office Visit Pharmacy, [facility] [address] [place] [address] [facility] [address] [place] [address] 11/30/2024 8:45 AM EST Imaging Radiology [facility] [address] [place] [address] 12/14/2024 9:30 AM EST Office Visit Otolaryngology [facility] [address] [place] [address] Kendall Armstrong DO [address] [place] [address] Health Maintenance Due Date Last Done Comments [...] Primary documented in this encounter Care Teams Oracle Adf Consultant Relationship Specialty Start Date End Date Rob Chisholm MD [address] [place] [address] PCP - General Family Medicine 06/23/22 documented as of this encounter
[2024-11-13] MEDS ORDERED: GLUCOSE 10 TAB/TUBE PO PRN (21:47)
[2024-11-13] MEDS ORDERED: CARBOHYDRATES FOR HYPOGLYCEMIA PO PRN (21:47)
[2024-11-13] MEDS ORDERED: PHARMACIST DISCHARGE MED REC CONSULT PRN (21:47)
[2024-11-13] MEDS ORDERED: DEXTROSE 50% 50 ML SYRINGE IV PRN (21:47)
[2024-11-13] MEDS ORDERED: GLUCOSE 40% GEL 15 GM TUBE PO PRN (21:47)
[2024-11-13] MEDS ORDERED: GLUCAGON FOR INJ 1 MG VIAL SQ PRN (21:47)
[2024-11-13] MEDS: INSULIN ASPART PER UNIT CHARGE SC SCH (22:01)
[2024-11-13 22:26] VITALS: RESP 18
[2024-11-13] MEDS: ATORVASTATIN 40 MG TAB PO SCH (23:17)
[2024-11-13] MEDS: ASPIRIN 81 MG ECTAB PO SCH (23:17)
[2024-11-13] MEDS: LANTUS PER UNIT CHARGE SQ SCH (23:20)
--- NOTE | 2024-11-13 23:47 | Magnetic Resonance Report ---
Exam(s): MRI HEAD Without Contrast EXAM: MR Head Without Intravenous Contrast CLINICAL HISTORY: Reason for exam: stroke. TECHNIQUE: Magnetic resonance images of the head/brain without intravenous contrast in multiple planes. COMPARISON: Prior head CT from November 13, 2024. FINDINGS: Brain: Mild nonspecific white matter changes. The flow voids at the base of the brain are intact. No mass. No hemorrhage. No acute infarct. Ventricles: Unremarkable. No ventriculomegaly. Bones/joints: Unremarkable. No acute fracture. Sinuses: Chronic right maxillary and left sphenoid sinusitis. No acute sinusitis. Mastoid air cells: Unremarkable as visualized. No mastoid effusion. Orbits: Unremarkable as visualized. IMPRESSION: No evidence of acute intracranial pathology. Electronically signed by: Laura Lagos MD 11/13/24 23:46 PM
[2024-11-14 06:47] LABS: Hematocrit (blood only) 36.2 % (42.0-52.0); Hemoglobin 12.7 g/dl (14.0-18.0); Mean Corpuscular Hemoglobin 31.5 pg (25.0-34.0); Mean Corpuscular Hgb Conc 35.1 g/dL (32.0-36.0); Mean Corpuscular Volume 89.8 fL (80.0-100.0); Platelet Count 334 K/uL (130-400); RDW Coefficient of Variation 11.9 % (11.5-14.5); RDW Standard Deviation 38.8 fL (36.4-46.3); Red Blood Count 4.03 M/uL (4.70-6.10); White Blood Count 11.64 K/ul (4.8-10.8)
[2024-11-14 06:57] LABS: BUN Creatinine Ratio 15.2 (10-20); Calcium 9.6 mg/dl (8.6-10.3); Chol HDL Ratio 3.9 (0-5); Creatinine Clr Calc Pharmacy 72.6 ml/min; Potassium 3.9 mmol/L (3.5-5.1)
[2024-11-14 07:15] LABS: Basophils % (auto) 0.9 %; Eosinophils # (auto) 0.15 K/uL (0.00-0.50); Eosinophils % (auto) 1.3 %; Immature Granulocytes # (auto) 0.63 K/uL (0.01-0.20); Immature Granulocytes % (auto) 5.4 %; Lymphocytes # (auto) 3.27 K/uL (1.20-3.40); Lymphocytes % (auto) 28.1 %; Monocytes % (auto) 7.7 %; Neutrophils # (auto) 6.59 K/uL (1.40-6.50); Neutrophils % (auto) 56.6 %
[2024-11-14 07:16] LABS: Estimated Average Glucose 232 mg/dl; Hemoglobin A1C 9.7 % (4.5-5.6)
[2024-11-14] MEDS: PANTOprazole 40 MG TAB PO SCH (08:12)
[2024-11-14] MEDS: ARIPiprazole 5 MG TAB PO SCH (08:12)
[2024-11-14] MEDS: ACETAMINOPHEN 325 MG TAB PO PRN (11:54)
[2024-11-14] MEDS: AMOXICILLIN/CLAVULANATE 875 MG TAB PO SCH (12:52)
[2024-11-14] MEDS: KETOROLAC TROMETHAMINE 15 MG/ML VIAL IV ONE (12:52)
--- NOTE | 2024-11-14 16:41 | Hospitalist Progress Note ---
Date of Service November 14, 2024 Assessment & Plan (1) Leukocytosis: Plan 59-year-old male with PMH of T2DM, diabetic medication noncompliance [reports missing insulin up to 2-3 times a week], dietary noncompliance [reports eating fries, fried food frequently], prior CVA [self-discontinued aspirin and statin about 6 months ago MICROSTRATEGY ARCHITECT, bipolar disorder presented to the ED 11/13 for evaluation of double vision, dizziness, headache. Patient reports having dental pain, completed penicillin prescribed by dentist prior to arrival. He reports improvement in his dental pain and associated some improvement in his headache/vision. Patient denies fever, chills, unilateral weakne ss/numbness/tingling. No slurring of speech noted at presentation. He is being managed for the following: Concern for stroke: CT head/CTA head/CTA neck with no acute finding. Brain MRI with no acute finding. Echo with EF of 50 to 55%, no ASD. Discussed with neurology 11/14, concern for stroke ruled out. Will DC neurology consult. Patient with no unilateral weakness/numbness/tingling/other neurological signs and symptoms. Continue to monitor for any neurological signs and symptoms. History of CVA: Patient self stopped his aspirin and statin about 6 months ago MICROSTRATEGY ARCHITECT, aspirin and statin has been restarted, continue. Patient educated about the importance of these medications to prevent further stroke in future. Possible maxillary and frontal sinusitis: Right greater than left frontal and maxillary sinus tenderness noted on exam 11/14. Leucocytosis at presentation. Patient reports the pain has been better than it was at the start of outpatient antibiotic therapy. Will put him on Augmentin and follow clinically. Plan to treat for total of 10 days. Add probiotics. follow admitting blood culture. Blurry vision: Patient reports his blurry vision started about the same time as dental pain started. Likely 2/2 dental/sinus infection vs uncontrolled DM. He was treated for dental infection as an outpatient. Noted to have sinusitis, see above. Will continue to treat his sinusitis, continue to follow his vision issues. No ophthalmoplegia noted, denies any worsening of his blurry vision. If blurry vision is persistent, patient to follow-up with ophthalmology as an outpatient. Other chronic medical conditions: Continue with/resume home meds as and when able. Hypertension: Continue home losartan. T2DM, uncontrolled: Patient reports missing insulin 2-3 times a week, A1c at presentation 9.7. ems educator consult. Patient encouraged to maintain compliance with insulin, close follow-up with outpatient diabetic clinic. DVT prophylaxis: Heparin subcu Full code Admission and Anticipated Discharge Date Admission Date: November 13, 2024 Subjective Patient was seen and examined at bedside. Patient was lying in bed, on room air, NAD, resting comfortably. Patient reports right-sided face pain, associated blurry vision which is minimal but has been stable. Patient reports completing course of antibiotic recently for dental infection. Patient denies any numbness or tingling or any slurring of speech or any focal weakness. Physical Exam Physical Exam: GENERAL: Alert and oriented x3. NAD, on RA. HEENT: No pallor, no icterus. Pupils equal, round and reactive to light. Oral mucosa moist. Dental caries noted, poor oral hygiene. NECK: No JVD, no neck masses. HEART: S1 and S2 heard. Regular rate and rhythm. No murmur, no gallop. RESPIRATORY SYSTEM: Normal AP diameter. No accessory muscle use. No wheezing, no crackles. ABDOMEN: Soft, bowel sounds present, nontender, no distention. CENTRAL NERVOUS SYSTEM: No facial droop. Speech is clear. Obeys simple c ommands. Moves extremities. Power 5/5 b/l extremities. EXTREMITIES: No edema, no erythema seen. Results & Data Results & Data Vital Signs (Past 12 Hours) Vital Signs Temp Pulse Pulse Resp BP Pulse Ox O2 Del Method 11/14/24 14:54 36.5 C 75 18 128/75 98 Room Air 11/14/24 14:35 79 11/14/24 10:58 36.6 C 80 18 116/76 96 Room Air 11/14/24 07:17 74 11/14/24 07:16 36.5 C 76 18 107/67 97 Room Air (1) Leukocytosis Leukocytosis type: unspecified Qualified Code(s): D72.829 - Elevated white blood cell count, unspecified
[2024-11-14 23:46] VITALS: TEMP 97.7; O2SAT 97
[2024-11-15 06:48] LABS: Basophils # (auto) 0.11 K/uL (0.00-0.20); Basophils % (auto) 0.9 %; Eosinophils # (auto) 0.16 K/uL (0.00-0.50); Eosinophils % (auto) 1.3 %; Hematocrit (blood only) 36.1 % (42.0-52.0); Hemoglobin 12.6 g/dl (14.0-18.0); Immature Granulocytes # (auto) 0.55 K/uL (0.01-0.20); Immature Granulocytes % (auto) 4.5 %; Lymphocytes # (auto) 2.96 K/uL (1.20-3.40); Lymphocytes % (auto) 24.1 %; Mean Corpuscular Hemoglobin 31.3 pg (25.0-34.0); Mean Corpuscular Hgb Conc 34.9 g/dL (32.0-36.0); Mean Corpuscular Volume 89.8 fL (80.0-100.0); Monocytes # (auto) 1.05 K/uL (0.11-0.59); Monocytes % (auto) 8.6 %; Neutrophils # (auto) 7.44 K/uL (1.40-6.50); Neutrophils % (auto) 60.6 %; Platelet Count 322 K/uL (130-400); RDW Coefficient of Variation 11.8 % (11.5-14.5); RDW Standard Deviation 38.5 fL (36.4-46.3); Red Blood Count 4.02 M/uL (4.70-6.10); White Blood Count 12.27 K/ul (4.8-10.8)
[2024-11-15 06:59] LABS: BUN Creatinine Ratio 18.9 (10-20); Calcium 9.5 mg/dl (8.6-10.3); Creatinine Clr Calc Pharmacy 62.5 ml/min; Potassium 4.3 mmol/L (3.5-5.1)
[2024-11-15 07:22] VITALS: BP 153/90
[2024-11-15] MEDS: ADVANCED PROBIOTIC 625 MG CAPSULE PO SCH (09:27)
[2024-11-15] MEDS: LOSARTAN POTASSIUM 50 MG TAB PO SCH (09:27)
[2024-11-15] MEDS ORDERED: STROKE PATIENT DISCHARGE STA (10:16)
--- NOTE | 2024-11-15 10:22 | Discharge Summary ---
Date of Service November 15, 2024 Admission HPI Per Admitting Provider 59-year-old male with PMH DM type II, HTN, prior CVA, bipolar disorder, and other problems listed below who presents to the ED for evaluation of double vision, dizziness, headache. Patient reports that 9 days ago, he tripped on the curb walking into work. He reports he fell to his knees and did not strike his head. 2 days later, patient reports he developed severe dental pain. His dentist prescribed him penicillin. He recently completed the course. At about the same time, patient reports he developed frontal headache, double vision, and dizziness. Patient reports that since completing the course of penicillin, the dental pain has significantly improved. However he still has some residual frontal headache, double vision, dizziness. Patient denies fevers and chills. No unilateral weakness, numbness, tingling. States that his speech does not feel at baseline to him however is attributing that to recently receiving IV Benadryl. Patient denies abdominal pain, nausea, vomiting, diarrhea. No u rinary symptoms. In the ED, head CT, head and neck CTA are unremarkable for acute findings. Neurology was consulted by ED and recommends admission for brain MRI and echo. Patient was given IV diphenhydramine, IV ketorolac, IV prochlorperazine. Admission Exam Per Admitting Provider Constitutional: WD/WN, vitals as above no acute distress Eyes: PERRL, conjunctivae normal, anicteric sclerae ENMT: external ear and nose normal, oropharynx normal Respiratory: normal respiratory effort, lungs clear to auscultation Cardiovascular: Rate/Rhythm: regular rate and regular rhythm Vessels: normal peripheral pulses Extremities: no edema Gastrointestinal (Abdomen): normal bowel sounds, soft, nontender, no hepatosplenomegaly Musculoskeletal: no cyanosis or clubbing, extremities motor strength 5/5 Skin: no rashes, warm and dry Neurologic: no focal motor deficits Psychiatric: A+Ox3, euthymic affect Principal Diagnosis Concern for stroke, ruled out History of CVA Maxillary and frontal sinusitis Blurry vision ISO sinusitis and uncontrolled DM, Improving Discharge Exam GENERAL: Alert and oriented x3. NAD, on RA. HEENT: No pallor, no icterus. Pupils equal, round and reactive to light. Oral mucosa moist. Dental caries noted, poor oral hygiene. Rt maxillary sinus minimal tenderness NECK: No JVD, no neck masses. HEART: S1 and S2 heard. Regular rate and rhythm. No murmur, no gallop. RESPIRATORY SYSTEM: Normal AP diameter. No accessory muscle use. No wheezing, no crackles. ABDOMEN: Soft, bowel sounds present, nontender, no distention. CENTRAL NERVOUS SYSTEM: No facial droop. Speech is clear. Obeys simple commands. Moves extremities. Power 5/5 b/l extremities. EXTREMITIES: No edema, no erythema seen. Discharge Data Allergies Allergy/AdvReac Type Severity Reaction Status Date / Time No Known Allergies Allergy Unverified 06/07/23 11:27 Consultations 11/13/24 17:01 ED Decision to Admit Stat Ordered Studies 11/13/24 13:44 CT angio head w con Stat CT angio neck with con Stat CT head/brain wo con Stat 11/13/24 21:47 MR brain wo con Routine Hospital Course (1) Leukocytosis: Plan 59-year-old male with PMH of T2DM, diabetic medication noncompliance [reports missing insulin up to 2-3 times a week], dietary noncompliance [reports eating fries, fried food frequently], prior CVA [self-discontinued aspirin and statin about 6 months ago 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 Patient reports having dental pain, completed penicillin prescribed by dentist prior to arrival. He reports improvement in his dental pain and associated some improvement in his headache/vision. Patient denies fever, chills, unilateral weakness/numbness/tingling. No slurring of speech noted at presentation. He was managed for the following: Concern for stroke: CT head/CTA head/CTA neck with no acute finding. Brain MRI with no acute finding. Echo with EF of 50 to 55%, no ASD. Discussed with neurology 11/14, concern for stroke ruled out. Patient with no unilateral weakness/numbness/tingling/other neurological signs and symptoms. History of CVA: Patient self stopped his aspirin and statin about 6 months ago VAT OVERHAULER, aspirin and statin has been restarted, continue. Patient educated about the importance of these medications to prevent further stroke in future. Possible maxillary and frontal sinusitis: Right greater than left frontal and maxillary sinus tenderness noted on exam 11/14. Tenderness has improved today 11/15, minimal rt maxillary sinus tenderness noted on exam. Leucocytosis +ve. Patient reports the pain has been better than it was at the start of outpatient antibiotic therapy. c/w Augmentin, pain and vision gradually improving per pt. Plan to treat for total of 10 days. Add probiotics. follow admitting blood culture. Pt states he has "some emergency" come up and would like to go home today. Ideally would wait until bl cx is neg for 48hrs, but pt will be dc'd per his wish. Nasal mucosa and oral mucosa were normal on exam. Blurry vision: Patient reports his blurry vision started about the same time as dental pain started. Likely 2/2 dental/sinus infection vs uncontrolled DM. He was treated for dental infection as an outpatient. Noted to have sinusitis, see above. Will continue to treat his sinusitis, continue to follow his vision issues. No ophthalmoplegia noted, denies any worsening of his blurry vision. If blurry vision is persistent, patient to follow-up with ophthalmology as an outpatient. Pt has been made aware. Other chronic medical conditions: Continue with/resume home meds as and when able. Hypertension: Continue home losartan. T2DM, uncontrolled: Patient reports missing insulin 2-3 times a week, A1c at presentation 9.7. assistant health educator consult. Patient encouraged to maintain compliance with insulin, close follow-up with outpatient diabetic clinic. DVT prophylaxis: Heparin subcu Full code Patient is being discharged to home with following instructions at the point of discharge: Follow-up with your primary care physician within a week time and likely you will need labs CBC/CMP/magnesium/phosphorus. Maintain compliance with your insulin regimen, maintain carbohydrate consistent diet. Maintain close follow-up with your diabetic clinic upon discharge. Follow-up with the diabetic clinic in a week time upon discharge. Follow-up with dentist upon discharge for your dental infection/caries. Your report of blurry vision should continue to improve with treatment of your uncontrolled diabetes and infection, if it persists for more than few days, recommend you visit with ophthalmology as an outpatient. Coordinate with your PCP office to set up the referral. You are being discharged on antibiotic to complete the course for maxillary and frontal sinusitis. Complete the course. Probiotics added. Follow-up on the final results of blood culture drawn while inpatient during your PCP visit within a week time upon discharge. Maintain compliance with your aspirin and statin. Take your medications as prescribed. Please make sure that you are able to get your medications today by calling your pharmacy before you leave the hospital so that your treatment continuity is not broken. Home Health Attestation I certify that this patient is under my care and that I, or a physicians intellectual property legal assistant working with me, had a face to-face encounter that meets the home health [id number] encounter requirements with this patient. The encounter with the patient was in whole, or in part, for the following medical condition, which is the primary reason for home health care (list medical condition): I certify that, based on my findings, the following services are medically necessary home health services: My clinical findings support the need for the above services because: Further, I certify that my clinical findings support that this patient is homebound (i.e. absences from home require considerable and taxing effort and are for medical reasons or islam services or infrequently or of short duration when for other reasons) because: Certification for Home Health Services: Based on the above findings, I certify that this patient is confined to the home and needs intermittent custodial care, physical therapy and/or speech therapy or continues to need occupational therapy. The patient is under my care, and I have initiated the establishment of the plan of care. This patient will be followed by a physician who will periodically review the plan of care. Total Time Total Time Spent Total Time Spent (In Minutes): 35 Discharge Plan Discharge Items Patient Disposition: Home - Self-Care Reason For Visit: STROKE LIKE SYMPTOMS Discharge Diagnosis: Concern for stroke, ruled out History of CVA Maxillary and frontal sinusitis Blurry vision ISO sinusitis and uncontrolled DM, Improving Activity: Resume your previous activity Non-emergency contact: Primary Care Provider Call non-emergency contact if: you have any medication questions, your symptoms worsen and your temperature is above 101 Follow-up/Referrals: Rob Chisholm MD [Primary Care Provider] - Diet: Carb Consistent or DM2 and Heart Healthy Addtl Attending Provider Instructions: Follow-up with your primary care physician within a week time and likely you will need labs CBC/CMP/magnesium/phosphorus. Maintain compliance with your insulin regimen, maintain carbohydrate consistent diet. Maintain close follow-up with your diabetic clinic upon discharge. Follow-up with the diabetic clinic in a week time upon discharge. Follow-up with dentist upon discharge for your dental infection/caries. Your report of blurry vision should continue to improve with treatment of your uncontrolled diabetes and infection, if it persists for more than few days, recommend you visit with ophthalmology as an outpatient. Coordinate with your PCP office to set up the referral. You are being discharged on antibiotic to complete the course for maxillary and frontal sinusitis. Complete the course. Probiotics added. Follow-up on the final results of blood culture drawn while inpatient during your PCP visit within a week time upon discharge. Maintain compliance with your aspirin and statin. Take your medications as prescribed. Please make sure that you are able to get your medications today by calling your pharmacy before you leave the hospital so that your treatment continuity is not broken. Pending Studies at Discharge: Yes Stand-Alone Forms: [facility] [employer], Work/School Release, Smoking Cessation Medications and DC Order Prescriptions: New amoxicillin-pot clavulanate 875-125 mg Tablet 1 tab PO BIDM 9 Days Qty: 18 0RF atorvastatin 40 mg Tablet 40 mg PO QAM Qty: 30 0RF aspirin 81 mg Tablet,Delayed Release (Dr/Ec) 81 mg PO QAM Qty: 30 0RF Advanced Probiotic 625 mg (10 billion cell) Capsule 1 cap PO DAILY 14 Days Qty: 14 0RF Continued losartan 50 mg tablet 50 mg PO DAILY pantoprazole 40 mg tablet,delayed release (DR/EC) 40 mg PO DAILY (DME) pen needle,diabetic, disp unit 32 gauge x 5/32" needle See Rx Instructions .Route Qty: 100 0RF Rx Instructions: As directed insulin aspart U-100 100 unit/mL (3 mL) insulin pen 1 sliding scale dose SUBCUT UD Rx Instructions: 5 units with breakfast, 8 units with lunch, 8 units with dinner aripiprazole 5 mg tablet 5 mg PO DAILY insulin glargine [Lantus Solostar U-100 Insulin] 100 unit/mL (3 mL) insulin pen 24 unit subcut QAM Discharge Orders: Discharge Order (Routine); Ordered 11/15/24 Ordered By: Joe Thayer Admission Data Admit Date/Time: 11/14/24 18:13 Attending Provider: Joe Thayer Admit Provider: Bry Marcelo Primary Care Provider: Rob Chisholm Other Providers: Bry Marcelo
[2024-11-15 10:35] VITALS: PULSE 80
--- NOTE | 2024-11-15 10:38 | Pharmacy Report ---
- Date of Service November 15, 2024 - Pharmacy CVA/TIA Medication Review Medications to Prevent Stroke handout has been added to the patients discharge packet. Antiplatelet(s) * Aspirin 81 mg daily Cholesterol * High intensity statin: atorvastatin 40 mg daily DVT Prophylaxis * SCD knee Therapeutic Anticoagulation * No history of Afib/Aflutter noted Type 2 Diabetes * Patient has T2DM, but a diabetes medication with proven CVD benefit will be deferred to their outpatient provider due to familiarity with risks/benefits of such therapies. "Medications to prevent stroke" handout has already been added to the patient's discharge packet, which instructs the patient to follow up with their outpatient provider to evaluate which diabetes medication with proven CVD benefit is best for them Currently stroke ruled but patient has a history of stroke. He self-stopped his aspirin and statin therapies 6 months ago. These were resumed on current admission. Provider counseled patient importance of continuing this to prevent future stroke.
--- NOTE | 2024-11-16 10:30 | Pharmacy Report ---
Pharmacist Stroke Counseling - Date of Service November 16, 2024 - Scope: Pharmacy has been consulted to provide medication discharge counseling for this patient admitted with stroke-like symptoms as per the Pharmacist Discharge Counseling for Stroke Patients Protocol. - Medications on Discharge: Home Medications Medication Instructions Recorded Confirmed losartan 50 mg tablet 50 mg PO DAILY 11/24/23 11/13/24 pantoprazole 40 mg tablet,delayed 40 mg PO DAILY 11/24/23 11/13/24 release aripiprazole 5 mg tablet 5 mg PO DAILY 11/13/24 11/13/24 insulin aspart U-100 100 unit/mL 1 sliding scale dose subcut UD 11/13/24 11/13/24 (3 mL) subcutaneous pen insulin glargine 100 unit/mL (3 24 unit subcut QAM 11/13/24 11/13/24 mL) subcutaneous pen (Lantus Solostar U-100 Insulin) New Rx's Medication Instructions Recorded pen needle,diabetic, disp unit 32 #100 ea 11/27/23 gauge x 5/32", remover and disposal unit L.acidop,casei,lactis,rham-B.lact,kenneth 1 cap PO DAILY 2 weeks #14 caps 11/15/24 625 mg (10 billion cell) capsule (Advanced Probiotic) amoxicillin 875 mg-potassium 1 tab PO BIDM 9 days #18 tabs 11/15/24 clavulanate 125 mg tablet aspirin 81 mg tablet,delayed 81 mg PO QAM #30 tabs 11/15/24 release atorvastatin 40 mg tablet 40 mg PO QAM #30 tabs 11/15/24 - Action: The above medications, specifically ones for stroke treatment/prophylaxis, have been reviewed in detail with the patient and/or patient banking representative(s) prior to discharge. This includes indication, common adverse reactions, drug interactions, and medication administration. Medication counseling has been employed using the teach-back method to ensure understanding. - Outcome: The patient and/or patient banking representative(s) have demonstrated understanding of the medications. Additional comments: Spoke with Román this morning regarding his medication changes since his admission. He reports he has picked up his medications from the pharmacy. Discussed starting aspirin and the risks and benefits. Discussed Lipitor. He reports he had some side effects previously and had stopped this medication. I suggested that he could talk with his primacy care provider if these side effects occur again as there are other options in this class of drugs that he may tolerate better and that some drug would be more beneficial than none. Discussed his diabetes and that he is not on any antidiabetic with proven CVD benefit, he reports that he was intolerant to Jardiance/Ozempic in the past. All questions answered. Thank you for allowing pharmacy to be involved in the care of this patient. Please call [phone] with any additional questions
== END 2024-11-15 11:15 | disposition home or self-care (01) | DRG 125 ==
LOC: ED 13:30 → EDINP 13:30 → SUATTDRO 17:34 → 2S 21:15